=== PATIENT | male | born 1940 | race Caucasian/White ===

== ENCOUNTER 2024-05-13 11:58 | Inpatient (IN) | payer OTHER, SELFPAY ==
[2024-05-13] VITALS (14 sets, daily range): BP systolic 109–190; BP diastolic 59–95; PULSE 2–110; O2SAT 94; BMI 24.0; BMI 23.0
--- NOTE | 2024-05-13 08:52 | ED.GENMED ---
History of Present Illness
General
Chief Complaint: Breathing Problem
Time Seen by Provider: 05/13/24 08:50
History of Present Illness
History of Present Illness:
HPI: The patient presents with approximately 5 days of respiratory distress. EMS was called and he apparently was in such severe distress that even considered intubating him on scene. They ultimately placed him on CPAP with some improvement. He
has been taking albuterol nebulizer treatments over the last several days. He reports no significant swelling in the legs.
EXAM:
GENERAL: The patient is in moderate respiratory distress
HEENT: Moist oral mucosa
CARDIOVASCULAR: No murmurs, tachycardic heart rate, regular rhythm, No chest wall tenderness
PULMONARY: Moderate respiratory distress, breath sounds are markedly diminished with wheeze
ABDOMEN: Soft with no peritoneal signs, no tenderness
NEUROLOGIC: Fair strength all extremities, no coordination deficits
PSYCHIATRIC: The patient is answering questions appropriately but with some difficulty
EXTREMITIES: Nontender, trace bilateral lower extremity edema, moves all extremities equally
SKIN: No rash, no lesions
TIME OF INITIAL ENCOUNTER: 8:50 AM
NUMBER AND COMPLEXITY OF PROBLEMS ADDRESSED AT THE ENCOUNTER
� Chronic conditions affecting care: COPD, CHF, A-fib, high blood pressure, hyperlipidemia, prostate cancer
� Acute Exacerbation and/or Progression of Chronic Illness: This is an acute but recurring problem
� Differential Diagnosis includes: COPD, CHF, pneumonia, reactive airway disease, viral syndrome
AMOUNT AND/OR COMPLEXITY OF DATA TO BE REVIEWED AND ANALYZED
� I performed an independent evaluation of and my interpretation is:
EKG: Sinus 99, bifascicular block, no significant change in comparison to 11/07/2023
CT:
X-rays: Chest x-ray shows mild interstitial pulmonary edema
Laboratory Studies: White count 6.3, hemoglobin 15.0, ABG shows a pH of 7.24, pCO2 of 83 and pO2 of 136. BNP 212.
Other:
� Review of other/old records: I reviewed records. The patient was seen in the ED with an exacerbation of COPD
� Clinical information was obtained by an independent historian: Spoke to EMS
� Prescriptions/Medications Considered but not given:
� Further testing considered but not performed: No indication for CT at this time
RISK OF COMPLICATIONS AND/OR MORBIDITY OR MORTALITY OF PATIENT MANAGEMENT
� Social determinants of health affecting care: Lives at [facility] and has a caregiver
� Discussion with other providers: Dr. Mcmillan for admission at 9:50 AM
� Escalation of care including admission/observation vs risk of discharge considered: The patient was placed on BiPAP. He was also given IV steroids, hour-long DuoNeb, and IV diuretic. He has markedly improved on reassessment
at 10 AM. Some degree of hypercapnic respiratory failure also noted�will leave on BiPAP for now.
Past History
Past History
ED Past Medical History: Cancer, COPD, HTN, Hypercholesterolemia, NIDDM and Other (COVID pneumonitis January 2022)
ED Past Surgical History: Cholecystectomy and Urological
Social History
Tobacco: Smoker
Alcohol: None
Personal:
Living: alone
Employment: Retired
Family History
Family History: Other (Noncontributory)
Phy Exam
Physical Exam
Physical Exam:
See HPI
Scores
Heart Failure Risk
Heart Failure Risk Score: Not Applicable
Course
Orders/Labs/Results
Orders:
Orders
05/13/24 08:51
Dexamethasone Sod Phosphate [Decadron] 10 mg IV NOW STA
Ipratropium/Albuterol Sulfate [Duoneb] 3 ml INH R NOW ONE
Ipratropium/Albuterol Sulfate [Duoneb] 3 ml INH R NOW ONE
Ipratropium/Albuterol Sulfate [Duoneb] 3 ml INH R NOW ONE
05/13/24 08:52
CR Chest Portable - 1 View Urgent
Comment:
Reason For Exam: sob copd chf hx
Reason Study Needs to be Portable: Patient Unstable
05/13/24 08:54
ABG [Arterial Blood Gas] Urgent
%Oxygen/Room Air: 40
Complete Blood Count/With Diff Urgent
Comprehensive Metabolic Panel Urgent
Magnesium Urgent
NT-proBNP Urgent
Troponin I Urgent
05/13/24 08:55
Albuterol Sulfate [Ventolin Nebules] 7.5 mg .ROUTE .STK-MED ONE
05/13/24 09:58
Furosemide [Lasix] 40 mg IV NOW STA
05/13/24 10:00
Electrocardiogram (*1) Urgent
Reason for Study: Shortness of Breath
EKG- Treatment ONCE
Abnormal Lab Results
05/13/24
08:54
MCHC 31.6 L g/dL
(33.0-37.0)
Absolute Lymphs (auto) 0.8 L 10^3/uL
(1.2-3.4)
Absolute Monos (auto) 0.9 H 10^3/uL
(0.1-0.6)
Lymphocytes % 13.0 L %
(20.5-51.1)
Monocytes % 13.4 H %
(1.7-9.3)
pH 7.24 L
(7.35-7.45)
pCO2 83 H* mmHg
(35-48)
pO2 136 H mmHg
(83-108)
HCO3 35.6 H mmol/L
(21-28)
ABG O2 Sat (Measured) 100.0 H %
(94-98)
Carbon Dioxide 35 H mmol/L
(22-30)
Creatinine 0.6 L mg/dL
(0.7-1.3)
Glucose 125 H mg/dl
(70-99)
Calcium 8.2 L mg/dl
(8.4-10.2)
Total Protein 5.7 L g/dl
(6.3-8.2)
05/13/24 08:54
05/13/24 08:54
Vital Signs
Initial and Last Documented VS:
Initial Vital Signs
Pulse Resp BP Pulse Ox
115 20 190/95 95
05/13/24 08:50 05/13/24 08:50 05/13/24 08:50 05/13/24 08:50
Last Documented Vital Signs
Pulse Resp BP Pulse Ox
98 19 133/60 94
05/13/24 10:13 05/13/24 10:00 05/13/24 10:13 05/13/24 09:45
*Critical Care Note
Total Time (30-74mins, 75-104mins- exclusive of procedures): 50min
comment:
The patient arrived and moderate to severe respiratory distress but overall improved after DuoNeb's given. He was also placed on BiPAP and given IV steroids. We also tried IV diuresis. His vital signs are very closely monitored. Hypercapnia also
noted on ABG.
ED Attending Note
-
Portions of this chart may have been created with voice recognition software.� Occasional wrong word or��sound alike� substitutions may have occurred due to the inherent limitations of voice recognition software.
Discharge Plan
Departure
Patient Disposition: Admit
Date of Disposition: 05/13/24
Time of Disposition: 09:58
Presentation/result/management discussed w/ accepting MD/DO: Hospitalist
Discharge Problem:
COPD exacerbation
Prescriptions:
No Action
atorvastatin 40 MG tablet
40 mg PO DAILY Qty: 30 0RF
aspirin 81 MG tablet,delayed release (DR/EC)
81 mg PO DAILY Qty: 30 0RF
tamsulosin 0.4 MG capsule
0.4 mg PO DAILY Qty: 30 0RF
omeprazole 20 MG capsule,delayed release(DR/EC)
20 mg PO DAILYPRN PRN (Reason: heartburn) Qty: 30 0RF
diltiazem HCl 120 MG capsule,extended release 24hr
120 mg PO DAILY Qty: 30 0RF
ipratropium-albuterol 0.5 mg-3 mg(2.5 mg base)/3 mL solution for nebulization
3 ml inhalation R BID
albuterol sulfate 2.5 mg /3 mL (0.083 %) Solution For Nebulization
2.5 mg INHALATION R Q6HPRN PRN (Reason: wheezing)
tamsulosin 0.4 mg Capsule
0.4 mg PO BIDPRN PRN (Reason: dark urine)
albuterol sulfate 90 mcg/actuation Hfa Aerosol Inhaler
2 puff INHALATION R BID
insulin glargine [Basaglar KwikPen U-100 Insulin] 100 unit/mL (3 mL) Insulin Pen
10 unit SC DAILY
fluticasone propion-salmeterol [Advair HFA] 230-21 mcg/actuation HFA aerosol inhaler
2 puff INHALATION R BIDPRN PRN (Reason: sob)
Metamucil Fiber Singles 1 PACKET powder in packet
1 packet PO HS PRN (Reason: Gastrointestinal issue)
prednisone 20 mg tablet
40 mg PO DAILY Qty: 8 0RF
Referrals:
NONE,* [Family Provider] -
Interventions
Interventions:
*Risk Screen - Suicide Last Done: 05/13/24 09:04
*General Assessment Last Done: 05/13/24 09:04
*Neglect/Abuse Screening Last Done: 05/13/24 09:04
ED- Fall Risk Assessment Last Done: 05/13/24 09:04
ED- Cardiac Assessment Last Done: 05/13/24 09:04
ED- Pulmonary Assessment Last Done: 05/13/24 09:04
Discharge Date and Time
Print Language: UKRAINIAN
[2024-05-13] MEDS: DUONEB 3 ML INH ×5 (08:56→20:30)
[2024-05-13] MEDS: DECADRON 10 MG IV (08:56)
[2024-05-13 09:10] LABS: % Basophils 0.6 % (0-2); % Eosinophils 1.1 % (0-6); % Immature Granulocytes 0.3 % (0-0.5); % Monocytes 13.4 % (1.7-9.3); % Neutrophils 71.6 % (42.2-75.2); Absolute Eosinophils 0.1 10^3/uL (0-0.7); Absolute Lymphocytes 0.8 10^3/uL (1.2-3.4); Absolute Monocytes 0.9 10^3/uL (0.1-0.6); Absolute Neutrophils 4.5 10^3/uL (1.4-6.5); Hematocrit 47.5 % (39.0-52.0); Mean Corp Hgb Conc. 31.6 g/dL (33.0-37.0); Mean Corpuscular Volume 91.7 fL (80.0-94.0); Mean Platelet Volume 9.9 fL (7.4-10.4); Nucleated Red Blood Cells % 0 % (-); Platelet Count 141 10^3/uL (130-400); Red Blood Cell Count 5.18 10^6/uL (4.70-6.10); Red Cell Dist. Width 12.5 % (11.5-14.5); White Blood Cell Count 6.3 10^3/uL (4.8-10.8)
[2024-05-13 09:22] LABS: B.E. 4.9 mmol/L; HCO3 35.6 mmol/L (21-28); PO2 136 mmHg (83-108); pH 7.24 (7.35-7.45)
[2024-05-13 09:24] LABS: ALT (SGPT) 30 U/L (0-50); AST (SGOT) 34 U/L (17-59); Albumin 3.6 g/dl (3.5-5.0); Alkaline Phosphatase 95 U/L (38-126); Blood Urea Nitrogen 14 mg/dl (9-20); Calcium 8.2 mg/dl (8.4-10.2); Carbon Dioxide 35 mmol/L (22-30); Chloride 98 mmol/L (98-107); Estimated Creatinine Clearance 95 ml/min; Glucose 125 mg/dl (70-99); Magnesium 1.7 mg/dl (1.6-2.3); Potassium 4.1 mmol/L (3.5-5.1); Sodium 140 mmol/L (135-145); Total Bilirubin 0.7 mg/dl (0.2-1.3); Total Protein 5.7 g/dl (6.3-8.2); eGFR > 60.00
[2024-05-13 09:31] LABS: PCO2 83 mmHg (35-48)
[2024-05-13 09:36] LABS: NT-proBNP 212 pg/ml; Troponin I 0.014 ng/ml
[2024-05-13] MEDS: LASIX 40 MG IV (10:13)
--- NOTE | 2024-05-13 11:40 | CON.PUL ---
Consultation
Consultation Request
Date/Time Consultation Requested: 05/13/24
Date/Time Consultation Performed: 05/13/24
Performing Provider: Domingo
Reason for Consultation: COPD
Medical History
-
History of Present Illness:
Patient is a year old M with history of severe COPD, on chronic O2, current smoker, presenting to ER for SOB/resp distress x 5 days. On arrival, EMS was concerned for distress and considered intubating en route but patient declined. He was then
placed on CPAP and brought in. He notes that he is DNR.
CXR showing mild edema.
He is on PAP in ER, and confirmed DNR. He understands the severity of his lung disease. Had been smoking on/off despite this, only quit in the past 30 days.
Last FEV1 in office was 10%.
He is end stage COPD.
Past Medical History
Past Medical History: Other (see list below)
Social History
Tobacco: Smoker
Alcohol: None
Drug: None
Family History
Family History: Reviewed & Not Pertinent
Allergies / Home Medications
Allergies
Allergy/AdvReac Type Severity Reaction Status Date / Time
No Known Allergies Allergy Verified 05/13/24 08:52
Home Medications
�Medication �Instructions �Recorded �Confirmed �Last Taken �Type
atorvastatin 40 mg tablet 40 mg PO DAILY High cholesterol 06/04/23 05/13/24 11/06/23 Rx
#30 tabs
diltiazem HCl 120 mg 120 mg PO DAILY Arrhythmia #30 caps 06/04/23 05/13/24 11/06/23 Rx
capsule,extended release 24 hr
albuterol sulfate 2.5 mg/3 mL 5 mg inhalation R Q6HPRN PRN 11/07/23 05/13/24 11/06/23 History
(0.083 %) solution for nebulization wheezing
albuterol sulfate 90 mcg/actuation 2 puff inhalation R Q6HPRN PRN 11/07/23 05/13/24 11/06/23 History
aerosol inhaler wheezing
budesonide 0.5 mg/2 mL suspension 0.25 mg inhalation R BID 05/13/24 05/13/24 Unknown History
for nebulization Lung/Breathing Issues
cephalexin 250 mg capsule 250 mg PO QID Infection 05/13/24 05/13/24 Unknown History
hydrocortisone 2.5 % topical cream 1 applic [place] BID rectum 05/13/24 05/13/24 Unknown History
with perineal applicator
metronidazole 500 mg tablet 500 mg PO TID Infection 05/13/24 05/13/24 Unknown History
omeprazole 20 mg capsule,delayed 20 mg PO DAILY Gastrointestinal 05/13/24 05/13/24 Unknown History
release Issue
tamsulosin 0.4 mg capsule 0.4 mg PO BID Urinary issue 05/13/24 05/13/24 Unknown History
Review of Systems
-
History Source: Patient
All other systems: Negative unless noted
Vitals / Labs / Diagnostic Testing
Vital Signs
Pulse Resp BP Pulse Ox
107 32 132/73 96
05/13/24 11:30 05/13/24 11:30 05/13/24 11:00 05/13/24 11:30
Lab Data
05/13/24 08:54
05/13/24 08:54
Laboratory Results
05/13/24
08:54
pH 7.24 L
pCO2 83 H*
pO2 136 H
HCO3 35.6 H
O2 Delivery Level
Diagnostic Testing:
Physical Exam
-
HEENT: Normocephalic, Anicteric and Moist Mucous Membranes
Cardiovascular: S1/S2 and Regular Rhythm
Respiratory: Wheeze, Non-Labored Respirations and Other (barrel chested, poor air movement, distended chest)
GI: Soft, Non Distended and Non Tender
Neurology: Awake, Alert, Oriented, AO x 3 and No Motor Deficits
Skin: Warm, Dry and Good Color
General: Respiratory Distress (mild, while on PAP) and Other (NAD)
Assessment
-
Patient is a year old M with history of severe COPD, on chronic O2, current smoker, presenting to ER for SOB/resp distress x 5 days. On arrival, EMS was concerned for distress and considered intubating en route but patient /declined. He was
then placed on CPAP and brought in. CXR showing mild edema. He is on PAP in ER, and confirmed DNR. We are consulted for eval 05/13/24.
Acute on chronic hypoxemic/hypercarbic respiratory failure
AECOPD
End stage COPD
Conditions present prior to admission:
[facility] 03-09 to : AECOPD. Again run out of nebulized BDs. O2 return to baseline 2L, d/c on prednisone taper
[facility] 11-29 to for AECOPD in suspected stage IV COPD, received ceftriaxone 3 d course by adm rekha, received tapering CSs.
Noted he run out of albuterol nebs due to frequent use due to uncontrolled dyspnea, could afford only half month supply
Chronic hypoxemic respiratory failure, suspected chronic hypercapnia (chronically elevated total serum CO2)
COVID illness, [facility] 01-24 to
Severe COPD, latest baseline from 2 to 2.5 L [employer]
Last seen in office-[facility] 04/01/23: FVC 1.02/28%, FEV1 0.26/10%, ratio 26%
6MWT confirms the need for 3 L O2 with ambulation.
History of E. coli bacteremia due to suspected biliary source 06/2021
Dilated CBD 1.8cm
Refused MRI testing due to refusal for mask use
H/o Prostate CA s/p XRT 2013
Chronic hypercarbia
Cholecystectomy
Chronic LILIBETH edema, mild
Obesity
Tobacco dependence: states quit 1 wk [employer], states commitment to smoking cessation
Plan
Placed on PAP therapy
Acute on chronic CO2 retention noted
Severe COPD-FEV1 0.26/10%
This is end stage disease which he is aware of.
He is currently DNR
Given IV steroids in ER, can continue while inpatient
Continue DuoNeb's
Pulmicort twice a day while in the hospital
CXR showing possible edema, would not hurt to diuresis some as well
Last ECHO in 2021 stable, has not had repeat study
Aspiration precautions
Speech therapy evaluation 06/01/23-Regular consistency solids and thin liquids
Resume prior recommended diet
Cultures in past reviewed-unrevealing
Observe off antibiotics
Ongoing smoking cessation counseling
Quit only in the past 30 days
Nicotine patch PRN
DVT prophylaxis
Increase activity as tolerated
We discussed his prognosis in ER and he is aware. He has confirmed for me that he is DNR and would not want CPR/intubation.
He does want to be kept comfortable if he should clinically deteriorate. He states that his family knows his wishes.
We will follow
Diagnostic Data
CXR 05/13/24- Findings suggesting mild pulmonary interstitial edema.
CXRs 05-31-23, c/w 03-09 and 11-29-22. No pulmonary infiltrates. Somewhat prominent breast shadows
Chest CT: N/A
TTE 01-24-22 CONCLUSIONS: Normal left ventricular size, wall thickness and systolic function. No regional wall motion abnormalities are seen. LV ejection fraction is 65-70% by visual assessment. Diastolic function indeterminate. Normal right
ventricular size and function. Normal atria. Aortic sclerosis without stenosis. No other significant valve abnormalities were observed. Small pericardial effusion without evidence of hemodynamic compromise. No evidence of pulmonary hypertension. No
prior study available for comparison.
LILIBETH doppler 01-24-22: negative
[facility] 04/01/23: FVC 1.02/28%, FEV1 0.26/10%, ratio 26%, significant BD response in FEV1 (27%). Post BD results FVC 0.99/27%, FEV1 0.33/13%, ratio 34%. Very severe obstruction and suggestive of severe restrictive pattern.
Total time spent on this consultation __76__ includes review of history, physical exam, medications, laboratory data, personal review of imaging, extensive review of outpatient records, discussion with care team and respiratory therapy. Discussed
case with care team.
[2024-05-13 11:54] LABS: COVID-19 Antigen Negative (Negative)
[2024-05-13 12:29] LABS: B.E. 9.4 mmol/L; HCO3 37.3 mmol/L (21-28); O2 Saturation % 93.7 % (94-98); PCO2 63 mmHg (35-48); PO2 65 mmHg (83-108); pH 7.38 (7.35-7.45)
--- NOTE | 2024-05-13 12:46 | PTCARENOTE ---
Pt received from the ER. Ox3 and appropriate, follows commands. Sinus tach on tele, +1 LE edema, + pulses. Currently on Bipap 14/6 with 8L o2 with 93% sat. Breath sounds are shallow with mild exp wheezing. Pt uses 2-3L O2 at home. Round ABD, + bowel
sounds. Stress incontinence, pt brought his own attends but he states he can usually tell when he needs to urinate. Skin is clear. IV sites intact. Pt makes needs known.
[2024-05-13] MEDS: DUONEB INH (12:50)
--- NOTE | 2024-05-13 13:05 | HPS.HSE ---
Addendum entered and electronically signed by Kobe Srinivasan MD 05/13/24 14:04:
I personally performed a history and physical exam of the patient and discussed management with the resident. I reviewed the resident's note and agree with the documented findings and plan of care HPI/CC.
83-year-old male who presents with chief complaint of shortness of breath that has worsened over the last week.
133/60, 98, 19, 97.7 F, 94% on BIPAP 14/6 with 8L O2
NAD, Awake and alert, appears chronically ill
tachy, reg rhythm, normal S1/S2
dec AE, B/L exp wheezes
CN2-12 intact
WBC 6.3, Hb 15, plt 141
Na 140, Cr 0.6
ABG 7.24/83/136/100%
CXR (read by me): Findings suggesting mild pulmonary interstitial edema.
ECG (read by me): NSR @ 99, L-axis, RBBB, LAFB, no acute ST/TW changes
Acute on chronic hypoxemic and hypercapnic respiratory failure due to acute exacerbation of COPD due to ongoing tobacco abuse disorder:
-on 2.5L/min at home, currently on BIPAP 14/6
-start Decadron 4mg IV Q6H
-Duonebs Q6H
-c/s pulm
-encourage smoking cessation, will offer nicotine patch
-repeat ABG at least 1 hour after initiation of BIPAP
-goal SpO2 90-91%
PAF:
-cont cardizem
Original Note:
Family Physician
-
Family Physician: Camila Rajput MD
Chief Complaint
-
Shortness of breath
History of Present Illness
83-year-old male past medical history of COPD, paroxysmal atrial fibrillation, prostate carcinoma, heart failure preserved ejection fraction, GERD, pulmonary emphysema, pulmonary hypertension, hyperlipidemia, type 2 diabetes not on insulin presents
to the emergency room with increasing shortness of breath of 1 week in duration. Patient reports shortness of breath has been progressive and got significant enough for him to come to the emergency department this morning. EMS placed the patient
on CPAP and brought him to the ED. Patient has been receiving albuterol nebulizing treatments over the last several days. Of note patient has a past medical history of prostate cancer status post radiation therapy, recently patient had infected
hemorrhoids and he was prescribed a 7-day course of antibiotics. Patient also was sick with the flu for the last week, has completed a course of Tamiflu as well. Patient follows [facility] pulmonology. Patient endorses fever over the last week
however no sputum production. He is currently afebrile. Patient is on 3 L of oxygen chronically at home and he did not have to increase his oxygen requirements in the last week. Patient was admitted to IMU and placed on telemetry.
Medical History
Past Medical History
Past Medical History: Reports Arrhythmia, Cancer, CHF, COPD, GERD, HTN, Hypercholesterolemia, NIDDM and Other (Pulmonary hypertension, prostate carcinoma, heart failure preserved ejection fraction)
Past Surgical History: Reports Cholecystectomy
Social History
Tobacco: Former Smoker (70 pack years, stopped smoking 2 weeks ago)
Alcohol: None
Drug: None
Personal: Single
Living: Alone
Employment: Retired
Family History
Family History: Not pertinent
Allergies / Home Medications
Allergies reflects when Allergies were last updated in [facility].
Home Medications with original date entered in [facility]
Allergy/Medication List:
Allergies
Allergy/AdvReac Type Severity Reaction Status Date / Time
No Known Allergies Allergy Verified 05/13/24 08:52
Home Medications
atorvastatin 40 mg tablet 40 mg PO DAILY High cholesterol #30 tabs 06/04/23
diltiazem HCl 120 mg capsule,extended release 24 hr 120 mg PO DAILY Arrhythmia #30 caps 06/04/23
albuterol sulfate 2.5 mg/3 mL (0.083 %) solution for nebulization 5 mg inhalation R Q6HPRN PRN wheezing 11/07/23
albuterol sulfate 90 mcg/actuation aerosol inhaler 2 puff inhalation R Q6HPRN PRN wheezing 11/07/23
budesonide 0.5 mg/2 mL suspension for nebulization 0.25 mg inhalation R BID Lung/Breathing Issues 05/13/24
cephalexin 250 mg capsule 250 mg PO QID Infection 05/13/24
hydrocortisone 2.5 % topical cream with perineal applicator [address] BID rectum 05/13/24
metronidazole 500 mg tablet 500 mg PO TID Infection 05/13/24
omeprazole 20 mg capsule,delayed release 20 mg PO DAILY Gastrointestinal Issue 05/13/24
tamsulosin 0.4 mg capsule 0.4 mg PO BID Urinary issue 05/13/24
Review of Systems
-
History Source: Patient
A 12 point ROS was completed and negative except as noted: No
Constitutional: Reports Fever
Respiratory: Reports Cough and Trouble Breathing
Cardiac: Reports No Symptoms
Abdomen/GI: Reports No Symptoms
Musculoskeletal: Reports No Symptoms
Physical Exam
Vital Signs
Vital Signs
Temp Pulse Resp BP Pulse Ox
97.9 F 107 32 132/73 96
05/13/24 11:01 05/13/24 11:30 05/13/24 11:30 05/13/24 11:00 05/13/24 11:30
Physical Exam
General: Well Developed, Well Nourished, Conversant and Respiratory Distress
Respiratory: Wheezes (Bilateral expiratory wheezing present without stethoscope on chest) and Other (Labored respirations)
Cardiac: Other (Could not auscultate due to BiPAP machine )
GI: Soft, Non Tender, Non Distended and Normal Bowel Sounds
Musculoskeletal: No Edema
Skin: Warm and Dry
Neuro: Awake, Alert, Oriented and AO x 3
Psych: Calm and Intact Judgment/Insight
Laboratory Results
-
05/13/24 08:54
05/13/24 08:54
Laboratory Results
pH 7.38 (7.35-7.45) 05/13/24 12:16
pCO2 63 mmHg (35-48) H 05/13/24 12:16
pO2 65 mmHg (83-108) L 05/13/24 12:16
HCO3 37.3 mmol/L (21-28) H 05/13/24 12:16
Total Bilirubin 0.7 mg/dl (0.2-1.3) 05/13/24 08:54
AST 34 U/L (17-59) 05/13/24 08:54
ALT 30 U/L (0-50) 05/13/24 08:54
Alkaline Phosphatase 95 U/L (38-126) 05/13/24 08:54
Troponin I 0.014 ng/ml 05/13/24 08:54
Data Reviewed
-
Diagnostic Radiology: Report Reviewed by me and Discussed with Physician
Lab Data: Labs Reviewed by me and Discussed with Physician
Impression/Plan
-
IMPRESSION:
83-year-old male with shortness of breath secondary to a COPD exacerbation
PLAN:
#COPD exacerbation
-Patient follows pulmonology at [facility]
-Takes 3 L oxygen at home chronically
-Currently requiring 8 L on BiPAP 16/
-Satting 92% on 8 L BiPAP
-Temperature in the ED was 97.7, patient afebrile, current antibiotics are not for COPD they are for his infected hemorrhoids
-Dexamethasone 4 mg IV every 6 hours
-DuoNebs every 6 hours as needed
-Pulmicort 0.25 mg twice daily
-Goal SpO2 90 to 91%, do not go above 92% oxygen saturation as this can decrease respiratory drive
-Pulmonology consulted
-Repeat ABG 1 hour after initiation of BiPAP
-Encourage smoking cessation
-Will offer nicotine patch
#Paroxysmal atrial fibrillation
-Patient has a past medical history of A-fib
-Currently in sinus rhythm
-Patient does not take anticoagulation, reason unknown
-Continue home diltiazem 120 mg extended release p.o. daily
#Infected hemorrhoids
-Patient reports having infected hemorrhoids prior to admission
-Patient was started on cephalexin to 250 mg p.o. 4 times daily and metronidazole 500 mg p.o. 3 times daily
-He received 3 days worth out of a 7-day treatment
-Continue home antibiotics for 4 days
#Influenza
-Patient reports having influenza over the last week
-Patient reports completing a course of Tamiflu
-Will check for influenza antigens
-COVID antigen negative
#Hyperlipidemia
-Continue home atorvastatin 40 mg p.o. daily
#GERD
-Continue home omeprazole 20 mg p.o. daily
#Urinary retention
-Continue home tamsulosin 0.4 mg p.o. twice daily
Diet: Carb controlled 1600-calorie
DVT prophylaxis: Lovenox 40 subcu
DNR/DNI
[2024-05-13] MEDS: DECADRON 4 MG IV ×2 (14:58→20:27)
[2024-05-13] MEDS: FLAGYL 500 MG PO ×2 (15:18→21:13)
[2024-05-13] MEDS: KEFLEX 250 MG PO ×3 (15:18→21:13)
[2024-05-13] MEDS: LOVENOX 40 MG SC (18:28)
[2024-05-13] MEDS: FLOMAX 0.4 MG PO (20:27)
[2024-05-13] MEDS: PULMICORT 0.5 MG INH (20:30)
[2024-05-14] VITALS (14 sets, daily range): BP systolic 125–162; BP diastolic 61–105; PULSE 2–80; O2SAT 92; BMI 22.7
[2024-05-14] MEDS: DUONEB 3 ML INH ×4 (01:48→21:13)
[2024-05-14] MEDS: DECADRON 4 MG IV ×3 (02:39→16:54)
[2024-05-14 05:08] LABS: % Basophils 0.3 % (0-2); % Immature Granulocytes 0.3 % (0-0.5); % Lymphocytes 11.8 % (20.5-51.1); % Monocytes 8.8 % (1.7-9.3); % Neutrophils 78.8 % (42.2-75.2); Absolute Lymphocytes 0.4 10^3/uL (1.2-3.4); Absolute Monocytes 0.3 10^3/uL (0.1-0.6); Absolute Neutrophils 2.4 10^3/uL (1.4-6.5); Hematocrit 45.2 % (39.0-52.0); Hemoglobin 14.4 g/dL (13.0-18.0); Mean Corp Hgb Conc. 31.9 g/dL (33.0-37.0); Mean Corpuscular Hgb 28.7 pg (27.0-31.0); Mean Platelet Volume 10.2 fL (7.4-10.4); Nucleated Red Blood Cells % 0 % (-); Platelet Count 127 10^3/uL (130-400); Red Blood Cell Count 5.02 10^6/uL (4.70-6.10); Red Cell Dist. Width 12.3 % (11.5-14.5); White Blood Cell Count 3.1 10^3/uL (4.8-10.8)
[2024-05-14 05:10] LABS: INR 1.13; PT 14.5 Sec (11.4-14.6)
[2024-05-14 05:11] LABS: APTT 32.5 Sec (23.4-35.0)
[2024-05-14 05:24] LABS: Blood Urea Nitrogen 25 mg/dl (9-20); Calcium 8.4 mg/dl (8.4-10.2); Carbon Dioxide 39 mmol/L (22-30); Chloride 94 mmol/L (98-107); Estimated Creatinine Clearance 70 ml/min; Glucose 220 mg/dl (70-99); Potassium 4.2 mmol/L (3.5-5.1); Sodium 137 mmol/L (135-145); eGFR > 60.00
[2024-05-14 07:24] LABS: Glucose - Point of Care 177 mg/dl (70-99)
--- NOTE | 2024-05-14 07:28 | PTCARENOTE ---
PAYABLE MANAGER notified of NIDDM, Pt had 220 glucose with Am labs. No current order for glucose checks/ insulin. No new orders at this time. pt asymptomatic.
[2024-05-14] MEDS: PULMICORT 0.5 MG INH ×2 (07:33→21:13)
[2024-05-14] MEDS: KEFLEX 250 MG PO ×4 (08:14→21:18)
[2024-05-14] MEDS: CARDIZEM CD 120 MG PO (08:14)
[2024-05-14] MEDS: PROTONIX 40 MG PO (08:14)
[2024-05-14] MEDS: FLOMAX 0.4 MG PO ×2 (08:14→19:38)
[2024-05-14] MEDS: LIPITOR 40 MG PO (08:14)
--- NOTE | 2024-05-14 08:30 | PTCARENOTE ---
Patient received from cage shift manager. Patient resting comfortably in bed. AAO, VSS. No events noted overnight. No complaints of pain at this time. Patient worse BiPAP up until the arrival of breakfast and was placed on 4L N/C to titrate to
maintain O2 sats 88-92%. Patient aware BiPAP is available for naps and to wear again overnight. Call rose in reach.
--- NOTE | 2024-05-14 08:49 | W.PN.HOSP.TC ---
Addendum entered and electronically signed by Kobe Srinivasan MD 05/14/24 11:57:
Possible transfer to tele later today. Will ask if cardiology has seen the pt as an outpt to review records.
Total time spent on today's encounter was 50 minutes which included time spent in counseling the patient/family regarding diagnosis and treatment plan as listed above, goals of care, and symptom management. Case was discussed with nursing staff,
specialists, and care coordinators/case management. All labs and imaging personally reviewed by me. Remainder the time spent in detailed review of previous records, lab data, imaging, and other medical provider documentation.
Addendum entered and electronically signed by Kobe Srinivasan MD 05/14/24 11:55:
I saw and evaluated the patient. I reviewed the resident�s note and agree with findings and plan as documented in the resident�s note.
NAD, Awake and alert, appears chronically ill
remains tachy, reg rhythm, normal S1/S2
dec AE, B/L exp wheezes (improved from yesterday)
remains CN2-12 intact
CXR (read by me): Findings suggesting mild pulmonary interstitial edema.
ECG (read by me): NSR @ 99, L-axis, RBBB, LAFB, no acute ST/TW changes
Acute on chronic hypoxemic and hypercapnic respiratory failure due to acute exacerbation of COPD due to ongoing tobacco abuse disorder:
-on 2.5-4L/min at home (pt variable on this info), was on BIPAP 14/6 on admission, now weaned to 4L NC O2. Goal SpO2 90-91%.
-repeat ABG after initiation of BIPAP with resolved respiratory acidosis (suspect pCO2 of 63 fairly close to pt's baseline)
-cont Decadron 4mg IV Q6H
-cont Duonebs/pulmicort
-c/s pulm
-encourage smoking cessation, will offer nicotine patch
-goal SpO2 90-91%
PAF:
-cont cardizem
Original Note:
Today's Communication/Plan
-
Continue IV steroids, monitor for symptoms of agitation
Continue to wean off oxygen as appropriate, keeping goal SpO2 below 92%
Assessment / Plan
Assessment / Plan
IMPRESSION:
83-year-old male with shortness of breath secondary to a COPD exacerbation
PLAN:
#COPD exacerbation
-Patient follows pulmonology at [place]
-Takes 3 L oxygen at home chronically
-BiPAP as needed 03/02
-Temperature in the ED was 97.7, patient afebrile, current antibiotics are not for COPD they are for his infected hemorrhoids
-Dexamethasone 4 mg IV every 6 hours
-DuoNebs every 6 hours as needed
-Pulmicort 0.25 mg twice daily
-Goal SpO2 90 to 91%, do not go above 92% oxygen saturation as this can decrease respiratory drive
-Pulmonology consulted
-Repeat ABG 1 hour after initiation of BiPAP was improved compared to previous
-Encourage smoking cessation
-Patient declines nicotine patch, as he has had issues with it in the past, causing rash. As well has him quitting smoking 2 weeks ago he does not want to reinitiate nicotine.
#Paroxysmal atrial fibrillation
-Patient has a past medical history of A-fib
-Currently in sinus rhythm
-Patient does not take anticoagulation, reason unknown
-Continue home diltiazem 120 mg extended release p.o. daily
#Infected hemorrhoids
-Patient reports having infected hemorrhoids prior to admission
-Patient was started on cephalexin to 250 mg p.o. 4 times daily and metronidazole 500 mg p.o. 3 times daily
-Patient completed his course of metronidazole yesterday, currently still has 3 days left of Keflex
#Influenza
-Patient reports having influenza over the last week
-Patient reports completing a course of Tamiflu
-Will check for influenza antigens
-COVID antigen negative
#insomnia
-pt reports insomnia and feelings of hyperactivity overnight
-Likely secondary to steroids
-5mg Melatonin PRN
Bowel incontinence
-pt reports bowel incontinence
-likely secondary to XRT for prostate cancer
-Pt takes Metamucil daily at home
-Metamucil PRN
#Hyperlipidemia
-Continue home atorvastatin 40 mg p.o. daily, and home baby aspirin 81mg p.o
#GERD
-Continue home omeprazole 20 mg p.o. daily
#Urinary retention
-Continue home tamsulosin 0.4 mg p.o. twice daily
Diet: Carb controlled 1600-calorie
DVT prophylaxis: Lovenox 40 subcu
DNR/DNI
Anticipated Discharge: 24 - 48 hours
Subjective/Interval History
-
Date of Service: May 14, 2024
Patient reports difficulty sleeping
Patient weaned to 4 L nasal cannula oxygen
Still appears in respiratory distress with pursed lip breathing
Objective Data
-
Labs:
Laboratory Results
05/14/24
04:47
WBC 3.1 L
Hgb 14.4
Hct 45.2
Plt Count 127 L
PT 14.5
INR 1.13
APTT 32.5
Sodium 137
Potassium 4.2
Chloride 94 L
Carbon Dioxide 39 H
BUN 25 H
Creatinine 0.8
Glucose 220 H
Calcium 8.4
Vital Signs:
Vital Signs
Temp Pulse Resp BP Pulse Ox
97.5 F 105 18 162/94 94
05/14/24 02:56 05/14/24 08:14 05/14/24 07:37 05/14/24 08:14 05/14/24 07:37
I&O
05/13/24 05/14/24 05/15/24
06:59 06:59 06:59
Output Total 925 / 925
Balance -925 / -925
Review of Systems
-
History Source: Patient
Constitutional: Reports No Symptoms
Respiratory: Reports Cough, Trouble Breathing and Wheezing
Cardiac: Reports No Symptoms
Abdomen/GI: Reports Diarrhea
Physical Exam
-
General: Well Nourished, Respiratory Distress and Conversant
Respiratory: Wheezes and Other (pursed lip breathing)
Cardiac: Regular Rhythm and S1/S2
GI: Soft, Nontender and Normal Bowel Sounds
Musculoskeletal: No Edema
Skin: Warm and Dry
Neuro: Awake, Alert, Oriented and AO x 3
Psych: Calm and Intact Judgement/Insight
Data Reviewed
-
Diagnostic Radiology: Report Reviewed by me and Discussed with Physician
Labs: Labs Reviewed by me and Discussed with Physician
--- NOTE | 2024-05-14 09:10 | W.PN.PUL3 ---
Today's Communication / Plan
-
Off BIPAP, continue nightly and PRN
Remains on IV steroids, will wean to q8 today
Encouraged IS/OOB
Wean O2 as tolerated
Assessment
-
Patient is a year old M with history of severe COPD, on chronic O2, current smoker, presenting to ER for SOB/resp distress x 5 days. On arrival, EMS was concerned for distress and considered intubating en route but patient /declined. He was
then placed on CPAP and brought in. CXR showing mild edema. He is on PAP in ER, and confirmed DNR. We are consulted for eval 05/13/24.
Acute on chronic hypoxemic/hypercarbic respiratory failure
AECOPD
End stage COPD
Conditions present prior to admission:
[facility] 03-09 to : AECOPD. Again run out of nebulized BDs. O2 return to baseline 2L, d/c on prednisone taper
[facility] 11-29 to for AECOPD in suspected stage IV COPD, received ceftriaxone 3 d course by adm rekha, received tapering CSs.
Noted he run out of albuterol nebs due to frequent use due to uncontrolled dyspnea, could afford only half month supply
Chronic hypoxemic respiratory failure, suspected chronic hypercapnia (chronically elevated total serum CO2)
COVID illness, [facility] 01-24 to
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
Last seen in office-[place] 04/01/23: FVC 1.02/28%, FEV1 0.26/10%, ratio 26%
6MWT confirms the need for 3 L O2 with ambulation.
History of E. coli bacteremia due to suspected biliary source 06/2021
Dilated CBD 1.8cm
Refused MRI testing due to refusal for mask use
H/o Prostate CA s/p XRT 2013
Chronic hypercarbia
Cholecystectomy
Chronic LILIBETH edema, mild
Obesity
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
Plan
Placed on PAP therapy
Acute on chronic CO2 retention noted
Reviewed importance of OP PAP use, he was resistant to this but agreed to try every night
Severe COPD-FEV1 0.26/10%
This is end stage disease which he is aware of.
He is currently DNR
Given IV steroids in ER, can continue while inpatient
Continue DuoNeb's
Pulmicort twice a day while in the hospital
CXR showing possible edema, would not hurt to diuresis some as well
Last ECHO in 2021 stable, has not had repeat study
Aspiration precautions
Speech therapy evaluation 06/01/23-Regular consistency solids and thin liquids
Resume prior recommended diet
Cultures in past reviewed-unrevealing
Observe off antibiotics
Ongoing smoking cessation counseling
Quit only in the past 30 days
Nicotine patch PRN
DVT prophylaxis
Increase activity as tolerated
We discussed his prognosis in ER and he is aware. He has confirmed for me that he is DNR and would not want CPR/intubation.
He does want to be kept comfortable if he should clinically deteriorate. He states that his family knows his wishes.
Diagnostic Data
CXR 05/13/24- Findings suggesting mild pulmonary interstitial edema.
CXRs 05-31-23, c/w 03-09 and 11-29-22. No pulmonary infiltrates. Somewhat prominent breast shadows
Chest CT: N/A
TTE 01-24-22 CONCLUSIONS: Normal left ventricular size, wall thickness and systolic function. No regional wall motion abnormalities are seen. LV ejection fraction is 65-70% by visual assessment. Diastolic function indeterminate. Normal right
ventricular size and function. Normal atria. Aortic sclerosis without stenosis. No other significant valve abnormalities were observed. Small pericardial effusion without evidence of hemodynamic compromise. No evidence of pulmonary hypertension. No
prior study available for comparison.
LILIBETH doppler 01-24-22: negative
[facility] 04/01/23: FVC 1.02/28%, FEV1 0.26/10%, ratio 26%, significant BD response in FEV1 (27%). Post BD results FVC 0.99/27%, FEV1 0.33/13%, ratio 34%. Very severe obstruction and suggestive of severe restrictive pattern.
Total time spent on this consultation __51__ includes review of history, physical exam, medications, laboratory data, personal review of imaging, extensive review of outpatient records, discussion with care team and respiratory therapy. Discussed
case with care team.
Subjective Data
-
Date of Service:
Date of Service: May 14, 2024
Chief Complaint: Pulmonary Follow Up
Subjective:
no new events, feels better
off PAP
Objective Data
Data Reviewed
Vital Signs / I&O / Oxygen:
Vital Signs
Temp Pulse Resp BP Pulse Ox
97.8 F 105 18 162/94 94
05/14/24 07:15 05/14/24 08:14 05/14/24 07:37 05/14/24 08:14 05/14/24 07:37
Intake and Output
05/13/24 05/14/24 05/15/24
06:59 06:59 06:59
Output Total 925 / 925
Balance -925 / -925
SaO2 94
Nasal Cannula flow liters per 4
minute
Physical Exam
General: Respiratory Distress (mild, able to hold conversation, breathless) and Other (NAD)
HEENT: Normocephalic, Anicteric and Moist Mucous Membranes
Cardiovascular: S1-S2 and Regular Rhythm
Respiratory: Wheeze, Non-Labored Respirations and Other (barrel chest)
GI: Soft, Non Distended and Non Tender
Neurology: Awake, Alert, Oriented, AO x 3 and No Motor Deficits
Skin: Warm and Dry
Labs/Micro/Reports
Lab Data
05/14/24 04:47
05/14/24 04:47
Laboratory Results
05/13/24 05/13/24 05/14/24
08:54 12:16 04:47
PT 14.5
INR 1.13
APTT 32.5
pH 7.24 L 7.38
pCO2 83 H* 63 H
pO2 136 H 65 L
HCO3 35.6 H 37.3 H
O2 Delivery Level
Microbiology
05/13/24 11:23 Nasal Swab Influenza Types A & B (BHUMI) - Final
Negative for Influenza A & B, NAAT
Negative results must be combined with clinical observations
and patient history.
Nucleic Acid Amplification test (NAAT)performed on the
[employer] platform.
[2024-05-14] MEDS: LOW STRENGTH ASPIRIN 81 MG PO (09:46)
[2024-05-14] MEDS: NOVOLOG FLEXPEN-LOW RESISTANCE 1 UNITS SC ×2 (11:35→16:55)
[2024-05-14 11:44] LABS: Glucose - Point of Care 185 mg/dl (70-99)
--- NOTE | 2024-05-14 14:30 | PTCARENOTE ---
Patient attempted to get self to bathroom. PCT went into room to assist, patient got aggressive pushing the rolling walker into her stating 'would you let me do this myself'. Patient at this time aside from arguing ended up getting entangled in
his O2 tubing. Attempted to explain to patient the dangers of getting up with all the wires to which he stated he unplugged all of them. This RN at the time was in the med room getting meds for patient and unable to see any monitors. At this time
patient argumentative and unwilling to agree with allowing us to help.
After patient was bad in bed, a more constructive conversation was had and patient more agreeable to what we need to do for his safety.
[2024-05-14 16:58] LABS: Glucose - Point of Care 184 mg/dl (70-99)
[2024-05-14] MEDS: LOVENOX 40 MG SC (18:04)
--- NOTE | 2024-05-14 19:45 | PTCARENOTE ---
report received. aaox3. vss. nsr. . bipap placed hs. plan of care updated. will monitor.
[2024-05-14] MEDS: MELATONIN 5 MG PO (21:18)
[2024-05-14 21:24] LABS: Glucose - Point of Care 239 mg/dl (70-99)
[2024-05-15] VITALS (7 sets, daily range): BP systolic 126–156; BP diastolic 66–83; PULSE 2–99; O2SAT 92–93; BMI 22.8
[2024-05-15] MEDS: DECADRON 4 MG IV ×3 (00:38→17:17)
[2024-05-15] MEDS: DUONEB 3 ML INH ×4 (03:11→19:45)
[2024-05-15 06:55] LABS: % Immature Granulocytes 0.3 % (0-0.5); % Lymphocytes 8.6 % (20.5-51.1); % Monocytes 8.2 % (1.7-9.3); % Neutrophils 82.9 % (42.2-75.2); Absolute Lymphocytes 0.6 10^3/uL (1.2-3.4); Absolute Monocytes 0.6 10^3/uL (0.1-0.6); Absolute Neutrophils 5.9 10^3/uL (1.4-6.5); Hematocrit 44.2 % (39.0-52.0); Hemoglobin 14.4 g/dL (13.0-18.0); Mean Corp Hgb Conc. 32.6 g/dL (33.0-37.0); Mean Corpuscular Hgb 29.4 pg (27.0-31.0); Mean Corpuscular Volume 90.2 fL (80.0-94.0); Mean Platelet Volume 10.5 fL (7.4-10.4); Nucleated Red Blood Cells % 0 % (-); Platelet Count 131 10^3/uL (130-400); Red Cell Dist. Width 12.2 % (11.5-14.5); White Blood Cell Count 7.1 10^3/uL (4.8-10.8)
[2024-05-15 06:58] LABS: APTT 29.8 Sec (23.4-35.0); INR 1.12; PT 14.5 Sec (11.4-14.6)
[2024-05-15 07:09] LABS: Blood Urea Nitrogen 26 mg/dl (9-20); Calcium 8.4 mg/dl (8.4-10.2); Carbon Dioxide 37 mmol/L (22-30); Chloride 95 mmol/L (98-107); Estimated Creatinine Clearance 80 ml/min; Glucose 193 mg/dl (70-99); Potassium 4.4 mmol/L (3.5-5.1); Sodium 135 mmol/L (135-145); eGFR > 60.00
[2024-05-15] MEDS: PULMICORT 0.5 MG INH ×2 (07:20→19:46)
[2024-05-15 08:03] LABS: Glucose - Point of Care 170 mg/dl (70-99)
[2024-05-15] MEDS: NOVOLOG FLEXPEN-LOW RESISTANCE 1 UNITS SC ×2 (08:28→12:50)
[2024-05-15] MEDS: PROTONIX 40 MG PO (08:29)
[2024-05-15] MEDS: CARDIZEM CD 120 MG PO (08:29)
[2024-05-15] MEDS: LOW STRENGTH ASPIRIN 81 MG PO (08:29)
[2024-05-15] MEDS: LIPITOR 40 MG PO (08:29)
[2024-05-15] MEDS: KEFLEX 250 MG PO ×4 (08:29→21:14)
[2024-05-15] MEDS: FLOMAX 0.4 MG PO ×2 (08:29→21:10)
--- NOTE | 2024-05-15 09:11 | W.PN.PUL3 ---
Today's Communication / Plan
-
Doing well, has remained compliant with BIPAP
We will arrange set up as OP if he no longer has a functional device at home
Sputum culture today
Transition to PO prednisone in AM if doing well (can taper to daily 10mg dose until seen in office)
Discharge planning hopefully in next 24 hours
We reviewed OP pulmonary FU in 1-2 weeks
Assessment
-
Patient is a 83 year old M with history of severe COPD, on chronic O2, current smoker, presenting to ER for SOB/resp distress x 5 days. On arrival, EMS was concerned for distress and considered intubating en route but patient /declined. He was
then placed on CPAP and brought in. CXR showing mild edema. He is on PAP in ER, and confirmed DNR. We are consulted for eval 05/13/24.
Acute on chronic hypoxemic/hypercarbic respiratory failure
AECOPD
End stage COPD
Conditions present prior to admission:
[facility] 03-09 to : AECOPD. Again run out of nebulized BDs. O2 return to baseline 2L, d/c on prednisone taper
[facility] 11-29 to for AECOPD in suspected stage IV COPD, received ceftriaxone 3 d course by adm rekha, received tapering CSs.
Noted he run out of albuterol nebs due to frequent use due to uncontrolled dyspnea, could afford only half month supply
Chronic hypoxemic respiratory failure, suspected chronic hypercapnia (chronically elevated total serum CO2)
COVID illness, [facility] 01-24 to
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
Last seen in office-[place] 04/01/23: FVC 1.02/28%, FEV1 0.26/10%, ratio 26%
6MWT confirms the need for 3 L O2 with ambulation.
History of E. coli bacteremia due to suspected biliary source 06/2021
Dilated CBD 1.8cm
Refused MRI testing due to refusal for mask use
H/o Prostate CA s/p XRT 2013
Chronic hypercarbia
Cholecystectomy
Chronic LILIBETH edema, mild
Obesity
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
Plan
Placed on PAP therapy, continues nightly
Acute on chronic CO2 retention noted
Reviewed importance of OP PAP use, he was resistant to this but agreed to try every night
He has been tolerating
He is not sure if he has a functional PAP machine at home, we will arrange OP testing/set up
Request sent via e[employer] today
Severe COPD-FEV1 0.26/10%
This is end stage disease which he is aware of.
He is currently DNR
Weaned back to home use of 2.5L NC
Given IV steroids in ER, can continue while inpatient
Continue DuoNeb's
Pulmicort twice a day while in the hospital
If doing well, can transition to prednisone in AM
More productive yellow sputum noted
Will send sputum culture
CXR showing possible edema, would not hurt to diuresis some as well
Last ECHO in 2021 stable, has not had repeat study
Aspiration precautions
Speech therapy evaluation 06/01/23-Regular consistency solids and thin liquids
Resume prior recommended diet
Cultures in past reviewed-unrevealing
Observe off antibiotics
Ongoing smoking cessation counseling
Quit only in the past 30 days
Nicotine patch PRN
DVT prophylaxis
Increase activity as tolerated
We discussed his prognosis in ER and he is aware. He has confirmed for me that he is DNR and would not want CPR/intubation.
He does want to be kept comfortable if he should clinically deteriorate. He states that his family knows his wishes.
Outpatient pulmonary FU arrangement for 1-2 weeks
Discharge planning hopefully in next 24 hours per team
Diagnostic Data
CXR 05/13/24- Findings suggesting mild pulmonary interstitial edema.
CXRs 05-31-23, c/w 03-09 and 11-29-22. No pulmonary infiltrates. Somewhat prominent breast shadows
Chest CT: N/A
TTE 01-24-22 CONCLUSIONS: Normal left ventricular size, wall thickness and systolic function. No regional wall motion abnormalities are seen. LV ejection fraction is 65-70% by visual assessment. Diastolic function indeterminate. Normal right
ventricular size and function. Normal atria. Aortic sclerosis without stenosis. No other significant valve abnormalities were observed. Small pericardial effusion without evidence of hemodynamic compromise. No evidence of pulmonary hypertension. No
prior study available for comparison.
LILIBETH doppler 01-24-22: negative
[facility] 04/01/23: FVC 1.02/28%, FEV1 0.26/10%, ratio 26%, significant BD response in FEV1 (27%). Post BD results FVC 0.99/27%, FEV1 0.33/13%, ratio 34%. Very severe obstruction and suggestive of severe restrictive pattern.
Total time spent on this consultation __51__ includes review of history, physical exam, medications, laboratory data, personal review of imaging, extensive review of outpatient records, discussion with care team and respiratory therapy. Discussed
case with care team.
Subjective Data
-
Date of Service:
Date of Service: May 15, 2024
Chief Complaint: Pulmonary Follow Up
Subjective:
Improved today
Wore BIPAP
More productive cough, yellow mucus
Objective Data
Data Reviewed
Vital Signs / I&O / Oxygen:
Vital Signs
Temp Pulse Resp BP Pulse Ox
97.7 F 73 18 126/73 98
05/15/24 07:30 05/15/24 07:23 05/15/24 07:23 05/15/24 00:00 05/15/24 07:23
Intake and Output
05/14/24 05/15/24 05/16/24
06:59 06:59 06:59
Output Total 925 / 925 675 / 675
Balance -925 / -925 -675 / -675
SaO2 98
Nasal Cannula flow liters per 3
minute
Physical Exam
General: Respiratory Distress (mild, able to hold conversation, breathless) and Other (NAD)
HEENT: Normocephalic, Anicteric and Moist Mucous Membranes
Cardiovascular: S1-S2 and Regular Rhythm
Respiratory: Wheeze (slight, improving), Non-Labored Respirations and Other (barrel chest)
GI: Soft, Non Distended and Non Tender
Neurology: Awake, Alert, Oriented, AO x 3 and No Motor Deficits
Skin: Warm and Dry
Labs/Micro/Reports
Lab Data
05/15/24 06:23
05/15/24 06:23
Laboratory Results
05/15/24
06:23
PT 14.5
INR 1.12
APTT 29.8
Microbiology
05/13/24 11:23 Nasal Swab Influenza Types A & B ([facility]UMI) - Final
Negative for Influenza A & B, NAAT
Negative results must be combined with clinical observations
and patient history.
Nucleic Acid Amplification test (NAAT)performed on the
[employer] platform.
--- NOTE | 2024-05-15 09:55 | W.PN.HOSP.TC ---
Addendum entered and electronically signed by Kobe Srinivasan MD 05/15/24 10:13:
I saw and evaluated the patient. I reviewed the resident�s note and agree with findings and plan as documented in the resident�s note.
NAD, Awake and alert, appears chronically ill
RRR, normal S1/S2
dec AE, faint B/L exp wheezes (improved from yesterday)
continues to remain CN2-12 intact
CXR (read by me): Findings suggesting mild pulmonary interstitial edema.
ECG (read by me): NSR @ 99, L-axis, RBBB, LAFB, no acute ST/TW changes
Acute on chronic hypoxemic and hypercapnic respiratory failure due to acute exacerbation of COPD due to ongoing tobacco abuse disorder:
-on 2.5-4L/min at home (pt variable on this info), was on BIPAP 14/6 on admission, now weaned to 3L NC O2. Goal SpO2 90-91% (reiterated with nursing).
-repeat ABG after initiation of BIPAP with resolved respiratory acidosis (suspect pCO2 of 63 fairly close to pt's baseline)
-cont Decadron 4mg IV Q8H, likely will transition to Prednisone tomorrow
-cont Duonebs/pulmicort
-pulm following
-encourage smoking cessation, can offer nicotine patch
PAF:
-cont cardizem
Transfer to [place].
Original Note:
Today's Communication/Plan
-
Continue to monitor oxygen saturation
Consider transition to oral steroid
Assessment / Plan
Assessment / Plan
IMPRESSION:
83-year-old male with shortness of breath secondary to a COPD exacerbation
PLAN:
#COPD exacerbation
-Patient follows pulmonology at [place]
-Takes 3 L oxygen at home chronically
-BiPAP as needed 16/4
-Temperature in the ED was 97.7, patient afebrile, current antibiotics are not for COPD they are for his infected hemorrhoids
-Dexamethasone 4 mg IV every 6 hours
-Consider transition to oral steroids in anticipation for discharge in the future
-DuoNebs every 6 hours as needed
-Pulmicort 0.25 mg twice daily
-Goal SpO2 90 to 91%, do not go above 92% oxygen saturation as this can decrease respiratory drive
-Pulmonology following, patient is well-known to them
-Repeat ABG 1 hour after initiation of BiPAP was improved compared to previous
-Encourage smoking cessation
-Patient declines nicotine patch, as he has had issues with it in the past, causing rash. As well has him quitting smoking 2 weeks ago he does not want to reinitiate nicotine.
-Conversation was had with patient regarding his prognosis, patient understands it is poor due to end-stage COPD he says that 'he is 84 has lived a good life and understands his prognosis'
-He requests to be started on prednisone daily at baseline as it helps him breathe and gives him more energy
-Will refer to palliative care as outpatient to continue daily steroid conversation
-Will discharge patient on prednisone taper once appropriate
#Paroxysmal atrial fibrillation
-Patient has a past medical history of A-fib
-Currently in sinus rhythm
-Patient does not take anticoagulation, reason unknown
-Continue home diltiazem 120 mg extended release p.o. daily
#Infected hemorrhoids
-Patient reports having infected hemorrhoids prior to admission
-Patient was started on cephalexin to 250 mg p.o. 4 times daily and metronidazole 500 mg p.o. 3 times daily
-Patient completed his course of metronidazole, currently still has 2 days left of Keflex
#Influenza
-Patient reports having influenza over the last week
-Patient reports completing a course of Tamiflu
-Will check for influenza antigens
-COVID antigen negative
#insomnia
-pt reports insomnia and feelings of hyperactivity overnight
-Likely secondary to steroids
-5mg Melatonin PRN
Bowel incontinence
-pt reports bowel incontinence
-likely secondary to XRT for prostate cancer
-Pt takes Metamucil daily at home
-Metamucil PRN
-Patient reports improvement with Metamucil as needed
#Hyperlipidemia
-Continue home atorvastatin 40 mg p.o. daily, and home baby aspirin 81mg p.o
#GERD
-Continue home omeprazole 20 mg p.o. daily
#Urinary retention
-Continue home tamsulosin 0.4 mg p.o. twice daily
#CODE STATUS
-Initially on admission patient relates that his wishes for CODE STATUS were to be DNR/DNI
-Yesterday on 05/14/2024 nurse texted myself and attending requested that patient wanted to rediscuss his CODE STATUS
-Conversation was had with patient and he decided that for this admission he wants to be full code, he understands his prognosis is poor
-Patient has full capacity per my evaluation
-Patient's CODE STATUS was changed to full code per his wishes
Diet: Carb controlled 1600-calorie
DVT prophylaxis: Lovenox 40 subcu
Full code
Anticipated Discharge: 24 - 48 hours
Subjective/Interval History
-
Date of Service: May 15, 2024
Patient reports feeling better
Patient currently on 2.5 L oxygen, this is his baseline
Satting between 88 to 92% on 2.5 L
Objective Data
-
Labs:
Laboratory Results
05/15/24
06:23
WBC 7.1
Hgb 14.4
Hct 44.2
Plt Count 131
PT 14.5
INR 1.12
APTT 29.8
Sodium 135
Potassium 4.4
Chloride 95 L
Carbon Dioxide 37 H
BUN 26 H
Creatinine 0.7
Glucose 193 H
Calcium 8.4
Vital Signs:
Vital Signs
Temp Pulse Resp BP Pulse Ox
97.7 F 73 18 126/73 98
05/15/24 07:30 05/15/24 07:23 05/15/24 07:23 05/15/24 00:00 05/15/24 07:23
I&O
05/14/24 05/15/24 05/16/24
06:59 06:59 06:59
Intake Total 300 / 300
Output Total 925 / 925 675 / 675
Balance -925 / -925 -675 / -675 300 / 300
Review of Systems
-
History Source: Patient
Constitutional: Reports Sleep Disturbance
Respiratory: Reports Cough, Trouble Breathing and Wheezing
Cardiac: Reports No Symptoms
Abdomen/GI: Reports No Symptoms
Physical Exam
-
General: Well Developed, Respiratory Distress, Conversant and Appears Chronically Ill
Respiratory: Wheezes (Improved ) and Other (Pursed lip breathing)
Cardiac: Regular Rhythm and S1/S2
GI: Soft, Nontender, Nondistended and Normal Bowel Sounds
Skin: Warm and Dry
Neuro: Awake, Alert, Oriented and AO x 3
Psych: Calm and Intact Judgement/Insight
[2024-05-15 10:21] LABS: Glycohemoglobin (HgbA1c) 7.2 % (4.0-5.6)
[2024-05-15 12:41] LABS: Glucose - Point of Care 183 mg/dl (70-99)
--- NOTE | 2024-05-15 14:36 | PTCARENOTE ---
pt transferred to med surg level of care. pt moving to room 403. report given to linda.
--- NOTE | 2024-05-15 16:16 | CM ---
Patient who resides at [facility] with Dx COPD exacerbation, Paroxysmal atrial fibrillation. O2 3L midflow. Receiving IV Decadron. PT & OT recommend HH.
Spoke with patient who resides alone at [facility], low income senior housing.
The patient has been assisted with ADLs by his caregiver, and ambulates without using an assistive device.
The patient has a caregiver through [employer] 12 hrs/day 7 days/wk who assists with medications, personal care, housekeeping services. He values having her and thinks she is very helpful.
DME - nebulizer, w/c, home O2 possibly through [facility]
VN - prior [facility]- didn't like nurse and will not use their service again
SNF - none
PCP - Camila Rajput
Pharmacy - [facility]
Offered VN for PT/OT and patient declined saying his caregiver will assist him.
Plan home.
[2024-05-15] MEDS: BenGay-Like 1 APPLIC TOPICAL ×2 (17:14→21:12)
[2024-05-15] MEDS: LOVENOX 40 MG SC (17:18)
[2024-05-15 17:31] LABS: Glucose - Point of Care 307 mg/dl (70-99)
[2024-05-15] MEDS: NOVOLOG FLEXPEN-LOW RESISTANCE 4 UNITS SC (17:39)
[2024-05-15 21:34] LABS: Glucose - Point of Care 164 mg/dl (70-99)
[2024-05-15] MEDS: MELATONIN 5 MG PO (22:37)
[2024-05-16] MEDS: DECADRON 4 MG IV ×2 (00:04→08:43)
[2024-05-16] MEDS: DUONEB 3 ML INH ×2 (01:33→08:06)
[2024-05-16 06:00] VITALS: BMI 22.5
[2024-05-16 07:14] VITALS: BP 143/71
[2024-05-16 07:26] LABS: % Basophils 0.2 % (0-2); % Immature Granulocytes 0.8 % (0-0.5); % Lymphocytes 7.4 % (20.5-51.1); % Monocytes 4.8 % (1.7-9.3); % Neutrophils 86.8 % (42.2-75.2); Absolute Immature Granulocytes 0.1 10^3/uL (0-0.05); Absolute Lymphocytes 0.5 10^3/uL (1.2-3.4); Absolute Monocytes 0.3 10^3/uL (0.1-0.6); Absolute Neutrophils 5.8 10^3/uL (1.4-6.5); Hematocrit 41.1 % (39.0-52.0); Hemoglobin 13.5 g/dL (13.0-18.0); Mean Corp Hgb Conc. 32.8 g/dL (33.0-37.0); Mean Corpuscular Hgb 28.7 pg (27.0-31.0); Mean Corpuscular Volume 87.4 fL (80.0-94.0); Mean Platelet Volume 10.9 fL (7.4-10.4); Nucleated Red Blood Cells % 0 % (-); Platelet Count 129 10^3/uL (130-400); Red Cell Dist. Width 12.1 % (11.5-14.5); White Blood Cell Count 6.7 10^3/uL (4.8-10.8)
[2024-05-16 07:33] LABS: Glucose - Point of Care 183 mg/dl (70-99)
[2024-05-16 07:44] LABS: Blood Urea Nitrogen 25 mg/dl (9-20); Calcium 8.3 mg/dl (8.4-10.2); Carbon Dioxide 38 mmol/L (22-30); Chloride 93 mmol/L (98-107); Estimated Creatinine Clearance 69 ml/min; Glucose 205 mg/dl (70-99); Potassium 4.4 mmol/L (3.5-5.1); Sodium 134 mmol/L (135-145); eGFR > 60.00
[2024-05-16] MEDS: PULMICORT 0.5 MG INH (08:06)
[2024-05-16] MEDS: NOVOLOG FLEXPEN-LOW RESISTANCE 1 UNITS SC ×2 (08:42→12:31)
[2024-05-16] MEDS: FLOMAX 0.4 MG PO (08:43)
[2024-05-16] MEDS: LOW STRENGTH ASPIRIN 81 MG PO (08:43)
[2024-05-16] MEDS: CARDIZEM CD 120 MG PO (08:43)
[2024-05-16] MEDS: PROTONIX 40 MG PO (08:43)
[2024-05-16] MEDS: KEFLEX 250 MG PO ×2 (08:43→12:32)
[2024-05-16] MEDS: LIPITOR 40 MG PO (08:43)
--- NOTE | 2024-05-16 09:21 | W.PN.HOSP.TC ---
Today's Communication/Plan
-
d/c
Assessment / Plan
Assessment / Plan
Gen: NAD, AAOx3.
Eyes: EOMI, PERRLA, no scleral icterus.
Neck: supple.
CV: Remains RRR, +S1/S2, no m/r/g.
Resp: Distant breath sounds, CTAB, no rales, wheezes, or rhonchi.
Abd: +BS, soft, NT, ND
Skin: No rashes.
Neuro: Remains CN 2-12 intact, non-focal.
Psych: Normal mood and affect.
CXR (read by me): Findings suggesting mild pulmonary interstitial edema.
ECG (read by me): NSR @ 99, L-axis, RBBB, LAFB, no acute ST/TW changes
Acute on chronic hypoxemic and hypercapnic respiratory failure due to acute exacerbation of COPD due to ongoing tobacco abuse disorder:
-on 2.5-4L/min at home (pt variable on this info), was on BIPAP 14/6 on admission, now weaned to 2.5-3L NC O2. Goal SpO2 90-91% (reiterated with nursing).
-repeat ABG after initiation of BIPAP with resolved respiratory acidosis (suspect pCO2 of 63 fairly close to pt's baseline)
-has been on IV Decadron, transition to Prednisone today, taper on discharge
-cont Duonebs/pulmicort
-pulm following
-encourage smoking cessation, can offer nicotine patch
PAF:
-cont cardizem
-not on AC ADMINISTRATIVE ASSISTANT DATA ENTRY
-outpt cardiology follow up
Infected hemorrhoids
-Patient reports having infected hemorrhoids prior to admission
-Patient was started on cephalexin to 250 mg p.o. 4 times daily and metronidazole 500 mg p.o. 3 times daily
-Patient completed his course of metronidazole, currently still has 1 day left of Keflex
Influenza:
-Patient reported having influenza over the last week ADMINISTRATIVE ASSISTANT DATA ENTRY and reported completing a course of Tamiflu
-COVID/Flu negative
insomnia: Melatonin PRN
Chronic bowel incontinence, likely secondary to XRT for prostate cancer, cont Metamucil PRN
Hyperlipidemia: Cont statin
GERD: cont PPI
Chronic Urinary retention: Cont Flomax
FULL/Lovenox
Medically cleared for discharge.
Total time spent on d/c = 34 min. This included today's physical exam, progress note, review of laboratory and diagnostic data, preparation of discharge documents and prescriptions, and discussions about the pt's hospital course and discharge plan
with the patient and other medical dermatologist involved in the patient's care.
Anticipated Discharge: Today
Subjective/Interval History
-
Date of Service: May 16, 2024
Denies shortness of breath.
Objective Data
-
Labs:
Laboratory Results
05/16/24
06:03
WBC 6.7
Hgb 13.5
Hct 41.1
Plt Count 129 L
Sodium 134 L
Potassium 4.4
Chloride 93 L
Carbon Dioxide 38 H
BUN 25 H
Creatinine 0.8
Glucose 205 H
Calcium 8.3 L
Vital Signs:
Vital Signs
Temp Pulse Resp BP Pulse Ox
97.4 F 73 18 143/71 97
05/16/24 07:14 05/16/24 08:43 05/16/24 08:11 05/16/24 08:43 05/16/24 08:11
I&O
05/15/24 05/16/24 05/17/24
06:59 06:59 06:59
Intake Total 780 / 780
Output Total 675 / 675 400 / 400
Balance -675 / -675 380 / 380
--- NOTE | 2024-05-16 11:13 | CM ---
Patient seen at bedside. Patient from [facility]. Patient on phone with aides 12 hours 7 days. Patient has home O2 and is in process of talking to pulmonology about CPAP. Patient declined VN at home. CM will continue to follow for discharge
planning needs.
Plan; home with aides/ home O2
[2024-05-16] MEDS: DELTASONE 20 MG PO (11:34)
--- NOTE | 2024-05-16 11:50 | W.PN.PUL.V3 ---
Today's Communication / Plan
-
Increase activity
Prednisone taper
Outpatient pulmonary follow-up
Assessment
-
Patient is a 83 year old M with history of severe COPD, on chronic O2, current smoker, presenting to ER for SOB/resp distress x 5 days. On arrival, EMS was concerned for distress and considered intubating en route but patient /declined. He was
then placed on CPAP and brought in. CXR showing mild edema. He is on PAP in ER, and confirmed DNR. We are consulted for eval 05/13/24.
Acute on chronic hypoxemic/hypercarbic respiratory failure
AECOPD
End stage COPD
Conditions present prior to admission:
[facility] 03-09 to : AECOPD. Again run out of nebulized BDs. O2 return to baseline 2L, d/c on prednisone taper
[facility] 11-29 to for AECOPD in suspected stage IV COPD, received ceftriaxone 3 d course by adm rekha, received tapering CSs.
Noted he run out of albuterol nebs due to frequent use due to uncontrolled dyspnea, could afford only half month supply
Chronic hypoxemic respiratory failure, suspected chronic hypercapnia (chronically elevated total serum CO2)
COVID illness, [facility] 01-24 to
Severe COPD, latest baseline from 2 to 2.5 L VERIFICATION MANAGER
Last seen in office-[facility] 04/01/23: FVC 1.02/28%, FEV1 0.26/10%, ratio 26%
6MWT confirms the need for 3 L O2 with ambulation.
History of E. coli bacteremia due to suspected biliary source 06/2021
Dilated CBD 1.8cm
Refused MRI testing due to refusal for mask use
H/o Prostate CA s/p XRT 2013
Chronic hypercarbia
Cholecystectomy
Chronic LILIBETH edema, mild
Obesity
Tobacco dependence: states quit 1 wk VERIFICATION MANAGER, states commitment to smoking cessation
Plan
Respiratory status has improved significantly
Continue BiPAP therapy at nighttime
Acute on chronic CO2 retention noted
Reviewed importance of OP PAP use, he was resistant to this but agreed to try every night-tolerating well
He is not sure if he has a functional PAP machine at home, we will arrange OP testing/set up
Request sent via [facility] today
Severe COPD-FEV1 0.26/10%
This is end stage disease which he is aware of.
He is currently DNR
Weaned back to home use of 2.5L NC
Transition to prednisone with taper
Continue DuoNeb's
Pulmicort twice a day while in the hospital
If doing well, can transition to prednisone in AM
More productive yellow sputum noted
Sputum culture pending
CXR showing possible edema, would not hurt to diuresis some as well
Last ECHO in 2021 stable, has not had repeat study
Aspiration precautions
Speech therapy evaluation 06/01/23-Regular consistency solids and thin liquids
Resume prior recommended diet
Cultures in past reviewed-unrevealing
Observe off antibiotics
Ongoing smoking cessation counseling
Quit only in the past 30 days
Nicotine patch PRN
DVT prophylaxis
Increase activity as tolerated
We discussed his prognosis in ER and he is aware. He has confirmed for me that he is DNR and would not want CPR/intubation.
He does want to be kept comfortable if he should clinically deteriorate. He states that his family knows his wishes.
Outpatient pulmonary FU arrangement for 1-2 weeks
Stable for proposed discharge from a pulmonary perspective
Diagnostic Data
CXR 05/13/24- Findings suggesting mild pulmonary interstitial edema.
CXRs 05-31-23, c/w 03-09 and 11-29-22. No pulmonary infiltrates. Somewhat prominent breast shadows
Chest CT: N/A
TTE 01-24-22 CONCLUSIONS: Normal left ventricular size, wall thickness and systolic function. No regional wall motion abnormalities are seen. LV ejection fraction is 65-70% by visual assessment. Diastolic function indeterminate. Normal right
ventricular size and function. Normal atria. Aortic sclerosis without stenosis. No other significant valve abnormalities were observed. Small pericardial effusion without evidence of hemodynamic compromise. No evidence of pulmonary hypertension. No
prior study available for comparison.
LILIBETH doppler 01-24-22: negative
[facility] 04/01/23: FVC 1.02/28%, FEV1 0.26/10%, ratio 26%, significant BD response in FEV1 (27%). Post BD results FVC 0.99/27%, FEV1 0.33/13%, ratio 34%. Very severe obstruction and suggestive of severe restrictive pattern.
Subjective Data
-
Date of Service:
Date of Service: May 16, 2024
Chief Complaint: Pulmonary Follow Up and Dyspnea Follow Up
Subjective:
Feels better, tolerating BiPAP, no chest pain, productive cough, increased chest congestion, abdominal pain or increased leg swelling
Review of Systems
General: Other (Per HPI)
Objective Data
Data Reviewed
Vital Signs / I&O:
Vital Signs
Temp Pulse Resp BP Pulse Ox
97.4 F 73 18 143/71 97
05/16/24 07:14 05/16/24 08:43 05/16/24 08:11 05/16/24 08:43 05/16/24 10:05
Intake and Output
05/15/24 05/16/24 05/17/24
06:59 06:59 06:59
Intake Total 780 / 780
Output Total 675 / 675 400 / 400
Balance -675 / -675 380 / 380
SaO2: 97
Nasal Cannula flow liters per minute: 3
Physical Exam
General: Respiratory Distress (mild, able to hold conversation, breathless), Comfortable and Other (NAD)
HEENT: Normocephalic, Anicteric and Moist Mucous Membranes
Cardiovascular: Regular Rhythm
Respiratory: Wheeze (slight, improving), Non-Labored Respirations and Other (barrel chest)
GI: Soft, Non Distended and Non Tender
Neurology: Awake, Alert, Oriented, AO x 3 and No Motor Deficits
Skin: Warm and Dry
Labs/Micro/Reports
Lab Data
05/16/24 06:03
05/16/24 06:03
Microbiology
05/15/24 12:44 Sputum Gram Stain - Preliminary
05/13/24 11:23 Nasal Swab Influenza Types A & B (BHUMI) - Final
Negative for Influenza A & B, NAAT
Negative results must be combined with clinical observations
and patient history.
Nucleic Acid Amplification test (NAAT)performed on the
[employer] NOW platform.
[2024-05-16 11:58] LABS: Glucose - Point of Care 166 mg/dl (70-99)
[2024-05-16 12:35] VITALS: BP 155/75
--- NOTE | 2024-05-16 13:46 | W.DCSUMMARY ---
Discharge Summary
Discharge Data
Date of Admission: 05/13/24
Date of Discharge: 05/16/24
-
Pending Results: No
Hospital Course
Primary diagnoses:
Acute on chronic hypoxemic and hypercapnic respiratory failure due to acute exacerbation of chronic obstructive pulmonary disease due to ongoing tobacco abuse disorder
Secondary diagnoses:
Paroxysmal atrial fibrillation
Recent diagnosis of infected hemorrhoids
Recent diagnosis of influenza
insomnia
Chronic bowel incontinence, likely secondary to radiation therapy for prostate cancer
Hyperlipidemia
Gastroesophageal reflux disease
Chronic Urinary retention
Consultants:
Pulmonary
Imaging:
CXR (read by me): Findings suggesting mild pulmonary interstitial edema.
ECG (read by me): NSR @ 99, L-axis, RBBB, LAFB, no acute ST/TW changes
Hospital course: 83-year-old male who presented with chief complaint of shortness of breath as outlined in the H&P done on admission. Admission the patient was diagnosed with acute on chronic hypoxemic and hypercapnic respiratory failure due to
acute exacerbation of COPD due to ongoing tobacco abuse disorder. ABG on admission showed respiratory acidosis with significant hypercapnia. The patient was initially on BiPAP /. Aepeat ABG after initiation of BIPAP with resolved respiratory
acidosis (suspect pCO2 of 63 fairly close to pt's baseline) He was weaned to his home oxygen flow rate of 2.5-3L NC O2. Patient was treated with IV Decadron and was transitioned to a prednisone taper on the day of discharge. He received DuoNebs
and Pulmicort. He was discharged in medically stable condition.
Discharge Plan
-
Patient Disposition: Home (Routine Discharge)
Discharge Diagnosis/Procedures: Acute on chronic hypoxemic and hypercapnic respiratory failure due to acute exacerbation of chronic obstructive pulmonary disease due to ongoing tobacco abuse disorder
Condition: Good
Diet: Diabetic, Carb Controlled
Activity: As tolerated
Driving Restrictions: As prior to admission
Referrals:
Ej España MD [Active] - in two weeks
(w/ [employer] ok
Sleep study/PAP set up)
Camila Rajput MD [Family Provider] - in less than 1 week
Prescriptions:
New
aspirin 81 mg Tablet,Chewable
81 mg PO DAILY Qty: 0 0RF
prednisone 10 mg tablet
10 mg PO DIRECTED Qty: 30 0RF
Rx Instructions:
Taper: 40mg daily x 3 days, 30mg daily x 3 days, 20mg daily x 3 days, 10mg daily x 3 days
Continued
atorvastatin 40 MG tablet
40 mg PO DAILY Qty: 30 0RF
diltiazem HCl 120 MG capsule,extended release 24hr
120 mg PO DAILY Qty: 30 0RF
albuterol sulfate 2.5 mg /3 mL (0.083 %) Solution For Nebulization
5 mg INHALATION R Q6HPRN PRN (Reason: wheezing)
albuterol sulfate 90 mcg/actuation Hfa Aerosol Inhaler
2 puff INHALATION R Q6HPRN PRN (Reason: wheezing)
cephalexin 250 mg Capsule
250 mg PO QID
Patient Comments:
05/13/24: filled 05/10/24, to take 1 capsule 4 times a day for 7 days
hydrocortisone 2.5 % cream with perineal applicator
1 applic [place] BID
Patient Comments:
05/13/24: filled 05/06/24, to apply twice a day for 10 days
budesonide 0.5 mg/2 mL Suspension For Nebulization
0.25 mg INHALATION R BID
tamsulosin 0.4 MG capsule
0.4 mg PO BID
omeprazole 20 MG capsule,delayed release(DR/EC)
20 mg PO DAILY
Discontinued
metronidazole 500 mg Tablet
500 mg PO TID
Patient Comments:
05/13/24: filled 05/06/24, to take 1 tablet 3 times a day for 7 days
Discharge Orders:
Discharge Patient (As Directed); Ordered 05/16/24
Ordered By: Kobe Srinivasan
Discharge Date and Time
Print Language: ARABIC
== END 2024-05-16 14:02 | disposition home or self-care (01) | DRG 189 ==
LOC: 4 EAST ACU 11:58
PROVIDERS: ADMITTING PHYSICIAN Internal Medicine; CONSULT PHYSICIAN Internal Medicine; EMERGENCY PHYSICIAN Emergency Medicine; FAMILY PHYSICIAN Internal Medicine
PROC: 5A09357 Assistance with Respiratory Ventilation, Less than 24 Consecutive Hours, Continuous Positive Airway Pressure (ICD-10-PCS; 2024-05-13)
DX: J96.21 Acute and chronic respiratory failure with hypoxia (principal); J44.1 Chronic obstructive pulmonary disease with (acute) exacerbation; I50.32 Chronic diastolic (congestive) heart failure; E87.29 Other acidosis; J96.22 Acute and chronic respiratory failure with hypercapnia; I48.0 Paroxysmal atrial fibrillation; E78.00 Pure hypercholesterolemia, unspecified; F17.200 Nicotine dependence, unspecified, uncomplicated; I11.0 Hypertensive heart disease with heart failure; E11.9 Type 2 diabetes mellitus without complications; K21.9 Gastro-esophageal reflux disease without esophagitis; I27.20 Pulmonary hypertension, unspecified; K64.9 Unspecified hemorrhoids; G47.00 Insomnia, unspecified; R15.9 Full incontinence of feces; R33.9 Retention of urine, unspecified; J11.1 Influenza due to unidentified influenza virus with other respiratory manifestations; Y84.2 Radiological procedure and radiotherapy as the cause of abnormal reaction of the patient, or of later complication, without mention of misadventure at the time of the procedure; Z66 Do not resuscitate; Z90.49 Acquired absence of other specified parts of digestive tract; Z79.82 Long term (current) use of aspirin; Z79.4 Long term (current) use of insulin; Z79.51 Long term (current) use of inhaled steroids; Z99.81 Dependence on supplemental oxygen; Z11.52 Encounter for screening for COVID-19; Z87.01 Personal history of pneumonia (recurrent); Z86.16 Personal history of COVID-19; Z85.46 Personal history of malignant neoplasm of prostate; Z92.3 Personal history of irradiation
CPT/HCPCS: 36600; 71045; 80048; 80053; 82805; 82962; 83036; 83735; 83880; 84484; 85025; 85610; 85730; 87070; 87077; 87186; 87205; 87502; 87811; 93005; 94640; 94644; 94660; 96374; 96375; 97162; 97166; 97530; 97535; 99291

== ENCOUNTER 2024-05-27 15:21 | Emergency (ER) | payer OTHER, SELFPAY ==
[2024-05-27 15:33] VITALS: BP 151/78
--- NOTE | 2024-05-27 15:43 | ED.GENMED ---
History of Present Illness
<NANCI Wang - Last Filed: 05/27/24 22:52>
General
Chief Complaint: Back Pain
Source: patient
Exam Limitations: none
Time Seen by Provider: 05/27/24 15:41
History of Present Illness
History of Present Illness:
pt is an 83 yr old with a past medical history of COPD recently admitted May 13 to May 16 for respiratory failure due to COPD presents to the ER with low back pain. Patient reports he actually felt the back pain when he was here at the end of
his hospital stay with pushing down on the bed. Since then he has had pain across his low back. He lives at home on his own he does not walk because of shortness of breath he uses a wheelchair he does have an aide come in several times a day. He
has not taken anything for pain because he was afraid to take anything [id number] but pain has become worse. Pain is worse with movement. He feels better at rest. He called his family doctor who did not get back to him. He called EMS. He
complains of pain across his low back. He denies any radiation. It is worse with movement. He denies any chest pain shortness of breath fever chills. His breathing is better and he was not here for his breathing. He initially did not tell me
but RN noted that patient has a rash to his left arm extending into his left chest. Patient reports this started after he got home from the hospital. His left arm is little sore.
Past History
<NANCI Wang - Last Filed: 05/27/24 22:52>
Past History
ED Past Medical History: Cancer, COPD, HTN, Hypercholesterolemia, NIDDM and Other (COVID pneumonitis January 2022)
ED Past Surgical History: Cholecystectomy and Urological
Social History
Tobacco: Smoker
Alcohol: None
Personal:
Living: alone
Employment: Retired
Family History
Family History: Other (Noncontributory)
Review of Systems
<NANCI Wang - Last Filed: 05/27/24 22:52>
Review of Systems
Allergies reviewed?: Yes
All Other Systems: ROS reviewed and negative except as documented in HPI and ROS
Constitutional: Reports no symptoms
Respiratory: Denies trouble breathing
Cardiac: Reports no symptoms
ABD/GI: Reports no symptoms
: Denies incontinence
Musculoskeletal: Reports back pain (pain across low back )
Skin: Reports rash (left arm )
Neurological: Reports no symptoms
Psychiatric: Reports no symptoms
Phy Exam
<NANCI Wang - Last Filed: 05/27/24 22:52>
General Physical Exam
General Presentation: no apparent distress
General age: appears stated age
General Skin: warm and dry
General Habitus: elderly
General Mental: alert
Cardiovascular Exam
Cardiovascular Exam: regular rate/rhythm, no murmur and normal peripheral pulses
Pulmonary Exam
Pulmonary Exam: no respiratory distress and other (decreased )
Neurological Exam
Neurological Exam: alert, oriented x3 and other (nml distal sensation to b/l l/e with nml strength b/l )
Musculoskeletal Exam
Musculoskeletal Exam: other (tender to b/l para lumbar muscle region ; + left arm rash ;areas of rash are raised some are macular )
Skin Exam
Skin Exam: normal color, warm/dry and other (See above note)
Psychiatric Exam
Psychiatric Exam: normal mood/affect
Course
<NANCI Wang - Last Filed: 05/27/24 22:52>
Orders/Labs/Results
Orders:
Orders
05/27/24 15:58
Lumbar Spine Complete, 4 View [CR Lumbar Spine Comp Min 4 Vw*] Urgent
Comment:
Reason For Exam: low back pain
05/27/24 15:59
Acetaminophen [Tylenol] 650 mg PO NOW STA
Lidocaine [Lidocaine 4% Patch] 1 patch TOPICAL NOW STA
Apply Lidocaine patch(s) to:: low back
Vital Signs
Initial and Last Documented VS:
Initial Vital Signs
Temp Pulse Resp BP Pulse Ox
98.1 F 105 24 151/78 96
05/27/24 15:33 05/27/24 15:33 05/27/24 15:33 05/27/24 15:33 05/27/24 15:33
Last Documented Vital Signs
Temp Pulse Resp BP Pulse Ox
98.1 F 95 16 148/81 97
05/27/24 15:33 05/27/24 18:12 05/27/24 18:12 05/27/24 18:12 05/27/24 18:12
Building Manager consulted with Physician
Building Manager consulted with physician?: Yes
Name of Physician Consulted: Gustavo
<Ari Chen MD - Last Filed: 05/27/24 17:41>
Orders/Labs/Results
Orders:
Orders
05/27/24 15:58
Lumbar Spine Complete, 4 View [CR Lumbar Spine Comp Min 4 Vw*] Urgent
Comment:
Reason For Exam: low back pain
05/27/24 15:59
Acetaminophen [Tylenol] 650 mg PO NOW STA
Lidocaine [Lidocaine 4% Patch] 1 patch TOPICAL NOW STA
Apply Lidocaine patch(s) to:: low back
Vital Signs
Initial and Last Documented VS:
Initial Vital Signs
Temp Pulse Resp BP Pulse Ox
98.1 F 105 24 151/78 96
05/27/24 15:33 05/27/24 15:33 05/27/24 15:33 05/27/24 15:33 05/27/24 15:33
Last Documented Vital Signs
Temp Pulse Resp BP Pulse Ox
98.1 F 95 16 148/81 97
08/07/24 15:33 05/27/24 18:12 05/27/24 18:12 05/27/24 18:12 05/27/24 18:12
<NANCI Wang - Last Filed: 05/27/24 22:52>
MDM/Problems Addressed
Differential Diagnosis Includes:
not limited to: Muscular back pain, shingles not related
MDM/Problems Addressed:
As documented patient is an 83-year-old male who presents to the ER complaining of low back pain. He was hospitalized recently and while here the hospital put something down in his bed and felt pain across his lower back and has had pain since. He
has not taken anything [id number] for this. He reports pain is worse with movement better at rest. He denies any trauma. Incidentally he also has a rash to his left arm and left upper back. This rash is consistent with shingles this rash
has been over a week. Because his pain is across his lower back and is bilateral this is likely not related. Patient on x-ray does incidentally have an L2 vertebral body compression fracture however likely remote patient was eval by ED physician.
Patient received Tylenol and lidocaine patch he does feel well left to go home he is in no acute distress here. He has no other complaints no complaints of fever chills shortness of breath. Will DC with antiviral even though it has been a week
for zoster and as far as back pain will DC with Tylenol and lidocaine patch close the patient fell with family doctor I discussed that having doctor may prescribe physical therapy. I did review with patient compression fracture also will refer to
orthopedics
<NANCI Wang - Last Filed: 05/27/24 22:52>
*Radiology
Radiology exam reviewed: radiology read reviewed
*Critical Care Note
Total Time (30-74mins, 75-104mins- exclusive of procedures): Not Applicable
ED Attending Note
<NANCI Wang - Last Filed: 08/07/24 22:52>
-
Portions of this chart may have been created with voice recognition software.� Occasional wrong word or��sound alike� substitutions may have occurred due to the inherent limitations of voice recognition software.
<Ari Chen MD - Last Filed: 05/27/24 17:41>
ED Attending Note
Patient seen and examined by attending physician: Yes
I performed the substantive portion of visit, reviewed & personally made and approve the management plan that is documented in note by myself or KAREEM.: Yes
ED Attending Note:
Patient primary here for low back pain. Muscular in nature. Is been going on for a week. Started when pushing to get into bed in the hospital. No distal numbness tingling or weakness. No abdominal pain. No urinary symptoms. No fever or
chills. In addition patient has had a rash to his left arm for a week.
On exam patient is nontoxic in no distress. Warm and dry. Perfusing well. Lungs clear and equal. Heart regular rate and rhythm. Abdomen soft nontender. No pulsatile masses. Good distal pulses and color. Negative raising. Good distal dorsi
and plantarflexion of the foot. Clearly winces in pain with sitting up although is able to sit up. No lower spinal swelling or erythema. Patient has a vesicular rash to the left arm mostly on the basilic side. Extends up towards the axilla.
Consistent with shingles.
Impression muscular low back pain. Questionable superior endplate fracture by x-ray. Pain management for the low back. Do not feel the rash has any bearing on the low back issues. Has had symptoms for a week. Unlikely that antivirals would make
a big difference however will give it a try.
Discharge Plan
Departure
Patient Disposition: Home (Routine Discharge)
Date of Disposition: 05/27/24
Time of Disposition: 18:05
Patient with high blood pressure during this ER visit?: Yes
Covid-19: Not Applicable
Discharge Problem:
Low back pain, Herpes zoster, Compression fracture
Instructions: Low Back Pain (DC), Vertebral Compression Fracture (DC), Shingles, BLOOD PRESSURE
Prescriptions:
New
valacyclovir 1 gram tablet
1,000 mg PO Q8H Qty: 21 0RF
lidocaine 5 % adhesive patch,medicated
1 patch topical DAILY Qty: 15 0RF
Rx Instructions:
remove after 12 hrs
No Action
atorvastatin 40 MG tablet
40 mg PO DAILY Qty: 30 0RF
diltiazem HCl 120 MG capsule,extended release 24hr
120 mg PO DAILY Qty: 30 0RF
albuterol sulfate 2.5 mg /3 mL (0.083 %) Solution For Nebulization
5 mg INHALATION R Q6HPRN PRN (Reason: wheezing)
albuterol sulfate 90 mcg/actuation Hfa Aerosol Inhaler
2 puff INHALATION R Q6HPRN PRN (Reason: wheezing)
cephalexin 250 mg Capsule
250 mg PO QID
Patient Comments:
05/13/24: filled 05/10/24, to take 1 capsule 4 times a day for 7 days
hydrocortisone 2.5 % cream with perineal applicator
1 applic IN BID
Patient Comments:
05/13/24: filled 05/06/24, to apply twice a day for 10 days
budesonide 0.5 mg/2 mL Suspension For Nebulization
0.25 mg INHALATION R BID
tamsulosin 0.4 MG capsule
0.4 mg PO BID
omeprazole 20 MG capsule,delayed release(DR/EC)
20 mg PO DAILY
aspirin 81 mg Tablet,Chewable
81 mg PO DAILY Qty: 0 0RF
prednisone 10 mg tablet
10 mg PO DIRECTED Qty: 30 0RF
Rx Instructions:
Taper: 40mg daily x 3 days, 30mg daily x 3 days, 20mg daily x 3 days, 10mg daily x 3 days
Referrals:
Peter Farias, DO [Non-Admitting Privileges] -
UNKNOWN - PT DOES,NOT KNOW [Family Provider] -
Activity Restrictions/Additional Instructions:
For back pain:
This is likely muscular back pain. You may take Tylenol 650 mg every 4-6 hours for back pain. In addition a prescription for lidocaine pain patch was sent to pharmacy take as directed.
Incidentally you are found to have shingles here in the ER and a prescription for antiviral medication was sent to your pharmacy take as directed.
Follow-up with family doctor in the next 2 days for reevaluation of your symptoms
In addition with follow-up with orthopedics as discussed for further evaluation of lumbar compression fracture. You may need physical therapy. It is unclear if this is new or old
Return if any woresning of symptoms
Interventions
Interventions:
*Risk Screen - Suicide Last Done: 05/27/24 15:33
*General Assessment Last Done: 05/27/24 15:33
*Neglect/Abuse Screening Last Done: 05/27/24 15:33
ED- Fall Risk Assessment Last Done: 05/27/24 18:48
*ED COVID-19 Vaccine History Last Done: 05/27/24 15:41
*Nursing Disposition Last Done: 05/27/24 18:48
ED-Musculoskeletal Assessment Last Done: 05/27/24 15:41
Discharge Date and Time
Discharge Date/Time: 05/27/24 18:48
Print Language: BURMESE
[2024-05-27] MEDS: TYLENOL 650 MG PO (16:07)
[2024-05-27] MEDS: LIDOCAINE 4% PATCH 1 PATCH TOPICAL (16:07)
[2024-05-27 18:12] VITALS: BP 148/81
== END 2024-05-27 18:48 | disposition home or self-care (01) ==
LOC: EMR 15:21
PROVIDERS: EMERGENCY PHYSICIAN Emergency Medicine
DX: S32.020A Wedge compression fracture of second lumbar vertebra, initial encounter for closed fracture (principal); B02.9 Zoster without complications; F17.200 Nicotine dependence, unspecified, uncomplicated; I10 Essential (primary) hypertension; J44.9 Chronic obstructive pulmonary disease, unspecified
CPT/HCPCS: 99283; 72110

== ENCOUNTER 2024-06-05 09:09 | Emergency (ER) | payer OTHER, SELFPAY ==
[2024-06-05 09:18] VITALS: BP 146/79
--- NOTE | 2024-06-05 09:38 | ED.GENMED ---
History of Present Illness
General
Chief Complaint: Skin Problem
Source: patient
Exam Limitations: none
Time Seen by Provider: 06/05/24 09:26
History of Present Illness
History of Present Illness:
83-year-old male returns for reevaluation of shingles. Seen for back pain and rash May 27. Back pain has resolved. Patient is finished his antiviral medication. He is not taking Tylenol. He states it makes him a little dehydrated. No fever
chills no weakness in the arm. No chest pain shortness of breath back pain.
Past History
Past History
ED Past Medical History: Cancer, COPD, HTN, Hypercholesterolemia, NIDDM and Other (COVID pneumonitis January 2022)
ED Past Surgical History: Cholecystectomy and Urological
Social History
Tobacco: Smoker
Alcohol: None
Personal:
Living: alone
Employment: Retired
Family History
Family History: Other (Noncontributory)
Review of Systems
Review of Systems
All Other Systems: Not applicable
Constitutional: Denies fever or chills
Phy Exam
Physical Exam
Physical Exam:
GENERAL: Alert and oriented in no apparent distress. Currently sitting in a wheelchair nontoxic
EYE: Orbits normal.
CARDIAC: Regular rate and rhythm
LUNGS: Oxygen in place. No respiratory distress
NEUROLOGICAL: Alert and oriented , grossly non-focal
SKIN: Warm and dry, drying rash to the left arm on the basilic side extending to the fourth and fifth finger hand basilic side of the forearm and upper arm into the axilla. Small area of rash on the chest wall on the left side only and a small
patch on the left back only
MUSCULOSKELETAL: No edema,no deformity.Good color. Good distal pulses to the hand. Good capillary refill.
PSYCH: Normal and appropriate interaction.
Course
Vital Signs
Initial and Last Documented VS:
Initial Vital Signs
Temp Pulse Resp BP Pulse Ox
98.2 F 103 22 146/79 93
06/05/24 09:18 06/05/24 09:18 06/05/24 09:18 06/05/24 09:18 06/05/24 09:18
Last Documented Vital Signs
Temp Pulse Resp BP Pulse Ox
98.2 F 103 22 146/79 93
06/05/24 09:18 06/05/24 09:18 06/05/24 09:18 06/05/24 09:18 06/05/24 09:18
MDM/Problems Addressed
Differential Diagnosis Includes:
Rash was reevaluated. I still feel this is a shingles rash and actually appears to be improving with some drying of the rash. All consistent with dermatomal shingles. Nothing to support vascular issue. Back pain has resolved. Patient is not on
any pain management at this time. Will give a small dose of narcotic although I asked him to try only half a tab if needed. Will also try low-dose gabapentin
*Pulse Oximetry
Patient hypoxic: no
*Critical Care Note
Total Time (30-74mins, 75-104mins- exclusive of procedures): Not Applicable
ED Attending Note
-
Portions of this chart may have been created with voice recognition software.� Occasional wrong word or��sound alike� substitutions may have occurred due to the inherent limitations of voice recognition software.
Discharge Plan
Departure
Patient Disposition: Home (Routine Discharge)
Date of Disposition: 06/05/24
Time of Disposition: 09:41
Patient with high blood pressure during this ER visit?: Yes
Discharge Problem:
Shingles/postherpetic pain
Instructions: Shingles, BLOOD PRESSURE
Prescriptions:
New
hydrocodone-acetaminophen 5-300 mg tablet
0.5 tab PO Q8H PRN (Reason: Pain) Qty: 14 0RF
gabapentin 100 mg capsule
100 mg PO BID Qty: 30 0RF
No Action
atorvastatin 40 MG tablet
40 mg PO DAILY Qty: 30 0RF
diltiazem HCl 120 MG capsule,extended release 24hr
120 mg PO DAILY Qty: 30 0RF
albuterol sulfate 2.5 mg /3 mL (0.083 %) Solution For Nebulization
5 mg INHALATION R Q6HPRN PRN (Reason: wheezing)
albuterol sulfate 90 mcg/actuation Hfa Aerosol Inhaler
2 puff INHALATION R Q6HPRN PRN (Reason: wheezing)
cephalexin 250 mg Capsule
250 mg PO QID
Patient Comments:
05/13/24: filled 05/10/24, to take 1 capsule 4 times a day for 7 days
hydrocortisone 2.5 % cream with perineal applicator
1 applic [place] BID
Patient Comments:
05/13/24: filled 05/06/24, to apply twice a day for 10 days
budesonide 0.5 mg/2 mL Suspension For Nebulization
0.25 mg INHALATION R BID
tamsulosin 0.4 MG capsule
0.4 mg PO BID
omeprazole 20 MG capsule,delayed release(DR/EC)
20 mg PO DAILY
aspirin 81 mg Tablet,Chewable
81 mg PO DAILY Qty: 0 0RF
prednisone 10 mg tablet
10 mg PO DIRECTED Qty: 30 0RF
Rx Instructions:
Taper: 40mg daily x 3 days, 30mg daily x 3 days, 20mg daily x 3 days, 10mg daily x 3 days
valacyclovir 1 gram tablet
1,000 mg PO Q8H Qty: 21 0RF
lidocaine 5 % adhesive patch,medicated
1 patch topical DAILY Qty: 15 0RF
Rx Instructions:
remove after 12 hrs
Referrals:
UNKNOWN - PT DOES,NOT KNOW [Family Provider] -
Activity Restrictions/Additional Instructions:
Start with Tylenol for pain ...if you feel it makes you dehydrated take extra fluids.
You can try a half of Vicodin initially if the Tylenol is not enough. If you tolerate this well you could increase it to a full like it and but only when the pain is more severe
Do not take the Vicodin if you have taken Tylenol within the 4-hour period since there is Tylenol and Vicodin
Take the gabapentin twice a day
The prescriptions were sent to your pharmacy
Follow-up closely with your primary physician
Interventions
Interventions:
*Risk Screen - Suicide Last Done: 06/05/24 09:18
*General Assessment Last Done: 06/05/24 09:18
*Neglect/Abuse Screening Last Done: 06/05/24 09:18
Discharge Date and Time
Print Language: QATARI
[2024-06-05] MEDS: TYLENOL 650 MG PO (09:51)
== END 2024-06-05 10:02 | disposition home or self-care (01) ==
LOC: EMR 09:09
PROVIDERS: EMERGENCY PHYSICIAN Emergency Medicine
DX: B02.9 Zoster without complications (principal); I10 Essential (primary) hypertension; F17.200 Nicotine dependence, unspecified, uncomplicated
CPT/HCPCS: 99283

== ENCOUNTER 2024-06-08 14:29 | Emergency (ER) | payer OTHER, SELFPAY ==
[2024-06-08 14:42] VITALS: BP 139/81
--- NOTE | 2024-06-08 15:35 | ED.GENMED ---
History of Present Illness
General
Chief Complaint: Prescription Refill
Source: patient
Exam Limitations: none
Time Seen by Provider: 06/08/24 15:27
Nursing documentation reviewed up to this point in time: agreed with
History of Present Illness
History of Present Illness:
83 yr old male presents to the ER for evaluation. Patient was diagnosed with shingles here in the ER May 27 and was treated with antiviral medication. At that time he had shingles to his left back and left arm. Patient was seen also June 05
(3 d ago) for pain related to the shingles rash and was given a pain prescription for hydrocodone/acetaminophen as well as gabapentin. He has not been taking the gabapentin as instructed because he was not under the impression this was also for
treatment of pain. He does have this prescription at home.
He has also in between family doctors and cannot get an appoint with family doctor.
He denies any other symptoms no fever chills. He has chronic COPD on chronic oxygen no shortness of breath.
Past History
Past History
ED Past Medical History: Cancer, COPD, HTN, Hypercholesterolemia, NIDDM and Other (COVID pneumonitis January 2022)
ED Past Surgical History: Cholecystectomy and Urological
Social History
Tobacco: Smoker
Alcohol: None
Personal:
Living: alone
Employment: Retired
Family History
Family History: Other (Noncontributory)
Review of Systems
Review of Systems
Allergies reviewed?: Yes
All Other Systems: ROS reviewed and negative except as documented in HPI and ROS
Constitutional: Reports no symptoms; Denies fever, fatigue or chills
Respiratory: Reports no symptoms; Denies trouble breathing
Musculoskeletal: Reports other (Pain to the left arm)
Skin: Reports other (Healing shingles rash to left arm)
Neurological: Reports no symptoms
Psychiatric: Reports no symptoms
Phy Exam
General Physical Exam
General Presentation: well appearing
General age: appears stated age
General Skin: warm and dry
General Habitus: elderly
General Mental: alert
General Hydration: appears well hydrated
Cardiovascular Exam
Cardiovascular Exam: regular rate/rhythm
Neurological Exam
Neurological Exam: alert and oriented x3
Musculoskeletal Exam
Musculoskeletal Exam: other (Healing scabbed over lesions to left hand )
Skin Exam
Skin Exam: normal color and warm/dry
Psychiatric Exam
Psychiatric Exam: normal mood/affect
Course
Vital Signs
Initial and Last Documented VS:
Initial Vital Signs
Temp Pulse Resp BP Pulse Ox
97.9 F 80 18 139/81 92
06/08/24 14:42 06/08/24 14:42 06/08/24 14:42 06/08/24 14:42 06/08/24 14:42
Last Documented Vital Signs
Temp Pulse Resp BP Pulse Ox
97.9 F 80 18 139/81 92
06/08/24 14:42 06/08/24 14:42 06/08/24 14:42 06/08/24 14:42 06/08/24 14:42
MDM/Problems Addressed
MDM/Problems Addressed:
As documented patient was diagnosed with shingles May 27 seen here 3 days ago for pain given narcotic prescription as well as gabapentin however is not taking gabapentin as instructed because he was not aware this is for pain. He ran out of his
narcotic. I explained the patient the gabapentin will treat his symptoms there is possible the patient has postherpetic neuralgia. He has scabbed over lesions to his left hand from shingles rash.
He is in between family doctors. Will have him continue gabapentin he may also take Tylenol and will give him information for family practice clinic. He is to return if any worsening of symptoms however he is nontoxic he has no other complaints
except for pain related to shingles.
Chronic conditions affecting care:
copd no resp complaints
*Critical Care Note
Total Time (30-74mins, 75-104mins- exclusive of procedures): Not Applicable
Data Reviewed
Review of Other/Old Records Reveals: Other (Previous ED visit)
ED Attending Note
-
Portions of this chart may have been created with voice recognition software.� Occasional wrong word or��sound alike� substitutions may have occurred due to the inherent limitations of voice recognition software.
Discharge Plan
Departure
Patient Disposition: Home (Routine Discharge)
Date of Disposition: 06/08/24
Time of Disposition: 15:47
Patient with high blood pressure during this ER visit?: Yes
Covid-19: Not Applicable
Discharge Problem:
Pain
Instructions: BLOOD PRESSURE
Prescriptions:
No Action
atorvastatin 40 MG tablet
40 mg PO DAILY Qty: 30 0RF
diltiazem HCl 120 MG capsule,extended release 24hr
120 mg PO DAILY Qty: 30 0RF
albuterol sulfate 2.5 mg /3 mL (0.083 %) Solution For Nebulization
5 mg INHALATION R Q6HPRN PRN (Reason: wheezing)
albuterol sulfate 90 mcg/actuation Hfa Aerosol Inhaler
2 puff INHALATION R Q6HPRN PRN (Reason: wheezing)
cephalexin 250 mg Capsule
250 mg PO QID
Patient Comments:
05/13/24: filled 05/10/24, to take 1 capsule 4 times a day for 7 days
hydrocortisone 2.5 % cream with perineal applicator
1 applic [place] BID
Patient Comments:
05/13/24: filled 05/06/24, to apply twice a day for 10 days
budesonide 0.5 mg/2 mL Suspension For Nebulization
0.25 mg INHALATION R BID
tamsulosin 0.4 MG capsule
0.4 mg PO BID
omeprazole 20 MG capsule,delayed release(DR/EC)
20 mg PO DAILY
aspirin 81 mg Tablet,Chewable
81 mg PO DAILY Qty: 0 0RF
prednisone 10 mg tablet
10 mg PO DIRECTED Qty: 30 0RF
Rx Instructions:
Taper: 40mg daily x 3 days, 30mg daily x 3 days, 20mg daily x 3 days, 10mg daily x 3 days
valacyclovir 1 gram tablet
1,000 mg PO Q8H Qty: 21 0RF
lidocaine 5 % adhesive patch,medicated
1 patch topical DAILY Qty: 15 0RF
Rx Instructions:
remove after 12 hrs
hydrocodone-acetaminophen 5-300 mg tablet
0.5 tab PO Q8H PRN (Reason: Pain) Qty: 14 0RF
gabapentin 100 mg capsule
100 mg PO BID Qty: 30 0RF
Referrals:
[facility] [Provider Group]
[facility] [Outside]
Activity Restrictions/Additional Instructions:
Please continue to take your gabapentin as previously instructed. In addition you may take Tylenol. Follow-up with family practice clinic.
they will reach out to you to make an appointment return if any worsening of symptoms
Interventions
Interventions:
*Risk Screen - Suicide Last Done: 06/08/24 14:42
*General Assessment Last Done: 06/08/24 14:42
*Neglect/Abuse Screening Last Done: 06/08/24 14:42
Discharge Date and Time
Print Language: PAKISTANI
[2024-06-08] MEDS: TYLENOL 650 MG PO (15:52)
[2024-06-08] MEDS: NEURONTIN 100 MG PO (15:53)
== END 2024-06-08 15:56 | disposition home or self-care (01) ==
LOC: EMR 14:29
PROVIDERS: EMERGENCY PHYSICIAN Emergency Medicine
DX: R52 Pain, unspecified (principal); Z76.0 Encounter for issue of repeat prescription; J44.9 Chronic obstructive pulmonary disease, unspecified; I10 Essential (primary) hypertension; E78.00 Pure hypercholesterolemia, unspecified; E11.9 Type 2 diabetes mellitus without complications; F17.200 Nicotine dependence, unspecified, uncomplicated; Z86.16 Personal history of COVID-19; Z90.49 Acquired absence of other specified parts of digestive tract; Z99.81 Dependence on supplemental oxygen
CPT/HCPCS: 99282

== ENCOUNTER 2024-08-14 11:33 | Emergency (ER) | payer OTHER, SELFPAY ==
[2024-08-14 11:37] VITALS: BP 127/69
--- NOTE | 2024-08-14 12:13 | ED.GENMED ---
History of Present Illness
General
Chief Complaint: Fall
Source: patient
Exam Limitations: none
Time Seen by Provider: 08/14/24 12:01
History of Present Illness
History of Present Illness:
See MDM
Past History
Past History
ED Past Medical History: Cancer, COPD, HTN, Hypercholesterolemia, NIDDM and Other (COVID pneumonitis January 2022)
ED Past Surgical History: Cholecystectomy and Urological
Social History
Tobacco: Smoker
Alcohol: None
Personal:
Living: alone
Employment: Retired
Family History
Family History: Other (Noncontributory)
Phy Exam
Physical Exam
Physical Exam:
See MDM
Course
Orders/Labs/Results
Orders:
Orders
08/14/24 12:08
Acetaminophen [Tylenol] 650 mg PO NOW STA
CR Ribs-left 3 Vw W/pa Chest Urgent
Comment:
Reason For Exam: fall, left lower posterior rib pain
08/14/24 12:23
CPK [Creatine Phosphokinase] Urgent
Complete Blood Count/With Diff Urgent
Comprehensive Metabolic Panel Urgent
08/14/24 14:11
Gabapentin [Neurontin] 100 mg PO NOW STA
Abnormal Lab Results
08/14/24
12:23
RBC 4.44 L 10^6/uL
(4.70-6.10)
MCV 98.4 H fL
(80.0-94.0)
MCHC 31.4 L g/dL
(33.0-37.0)
RDW 14.8 H %
(11.5-14.5)
MPV 11.0 H fL
(7.4-10.4)
Abs Immat Gran (auto) 0.1 H 10^3/uL
(0-0.05)
Absolute Neuts (auto) 7.9 H 10^3/uL
(1.4-6.5)
Absolute Lymphs (auto) 0.5 L 10^3/uL
(1.2-3.4)
Immature Gran % 0.6 H %
(0-0.5)
Neutrophils % 89.6 H %
(42.2-75.2)
Lymphocytes % 5.1 L %
(20.5-51.1)
Carbon Dioxide 35 H mmol/L
(22-30)
BUN 30 H mg/dl
(9-20)
Creatinine 0.6 L mg/dL
(0.7-1.3)
Glucose 289 H mg/dl
(70-99)
Creatine Kinase 50 L U/L
(55-170)
Total Protein 5.5 L g/dl
(6.3-8.2)
Albumin 3.4 L g/dl
(3.5-5.0)
08/14/24 12:23
08/14/24 12:23
Vital Signs
Initial and Last Documented VS:
Initial Vital Signs
Temp Pulse Resp BP Pulse Ox
98.4 F 110 16 127/69 93
08/14/24 11:37 08/14/24 11:37 08/14/24 11:37 08/14/24 11:37 08/14/24 11:37
Last Documented Vital Signs
Temp Pulse Resp BP Pulse Ox
98.4 F 104 19 127/69 91
08/14/24 11:37 08/14/24 12:30 08/14/24 14:00 08/14/24 11:37 08/14/24 12:30
MDM/Problems Addressed
Differential Diagnosis Includes:
HPI and MDM Narrative:
83-year-old male presenting with left rib pain after a fall. Patient states he fell 2 days ago in the shower and laid on the floor for 7 hours. Patient states he takes blood thinners and has been taking Tylenol with minimal relief for the pain. I
did offer Percocet or low-dose narcotics and patient declined. Will give dose of Tylenol. Patient does have bruising to left lower posterior ribs. Will obtain x-ray. Given duration of fall with no headache or neurodeficits, doubt clinically
relevant intracranial bleeding.
Physical exam
General: Well appearing and non-toxic
HEENT: protecting airway
Neck: appears supple
CV: No evidence of cyanosis
Resp: No accessory muscle use. Lungs clear
Back: Bruising noted to left posterior lower ribs
Abd: Non-distended
Extremities: No deformities
Neuro: alert
Psych: Normal affect
Skin: Intact
Problems Addressed including Acute and Chronic Conditions affecting care:
1. Rib pain status post fall
Acuity: acute
Prognosis: stable
Details: Will obtain x-ray with concern for rib fracture
2. Prolonged downtime
Acuity: acute
Prognosis: stable
Details: Will obtain CPK and creatinine
Updates
Chest x-ray negative for obvious rib fractures. I did discuss his elevated blood sugar. He confirms that he is on steroids. I discussed talking to his doctor about increasing his insulin.
Patient requesting refill of his gabapentin for his post herpetic neuralgia
Differential Diagnosis (but not limited to): Rib fracture, rib contusion, rhabdomyolysis
Testing considered: CT head but patient denies headache
Drug therapy (if applicable): OTC meds, please see d/c instruction regarding Rx drugs
Amount and/or Complexity of Data Reviewed
Clinical info obtained from: Patient
External data reviewed: N/A
Labs I independently reviewed (but not limited to): CPK normal
Radiology: X-ray independently reviewed: No obvious rib fracture on chest x-ray
Pulse Ox: not hypoxic
EKG independently reviewed: N/A
District Representative: N/A
Critical Care: N/A
Risk of Complication:
Social Determinants of health: Good social support
Discussed with other providers: N/A
Escalation of Care includes Admit/Obs: After being observed in the Emergency Department, pt stable for discharge.
Occasional wrong word or 'sound a like' substitutions may have occurred due to the inherent limitations of voice recognition software. Read the chart carefully and recognize, using context, where substitutions have occurred.
*Critical Care Note
Total Time (30-74mins, 75-104mins- exclusive of procedures): Not Applicable
ED Attending Note
-
Portions of this chart may have been created with voice recognition software.� Occasional wrong word or��sound alike� substitutions may have occurred due to the inherent limitations of voice recognition software.
Discharge Plan
Departure
Patient Disposition: Home (Routine Discharge)
Date of Disposition: 08/14/24
Time of Disposition: 14:14
Patient with high blood pressure during this ER visit?: No
Discharge Problem:
Contusion of rib on left side
Instructions: Bruised Rib (DC)
Prescriptions:
New
gabapentin 100 mg capsule
100 mg PO BID Qty: 20 0RF
No Action
atorvastatin 40 MG tablet
40 mg PO DAILY Qty: 30 0RF
diltiazem HCl 120 MG capsule,extended release 24hr
120 mg PO DAILY Qty: 30 0RF
albuterol sulfate 2.5 mg /3 mL (0.083 %) Solution For Nebulization
5 mg INHALATION R Q6HPRN PRN (Reason: wheezing)
albuterol sulfate 90 mcg/actuation Hfa Aerosol Inhaler
2 puff INHALATION R Q6HPRN PRN (Reason: wheezing)
cephalexin 250 mg Capsule
250 mg PO QID
Patient Comments:
05/13/24: filled 05/10/24, to take 1 capsule 4 times a day for 7 days
hydrocortisone 2.5 % cream with perineal applicator
1 applic NM BID
Patient Comments:
05/13/24: filled 05/06/24, to apply twice a day for 10 days
budesonide 0.5 mg/2 mL Suspension For Nebulization
0.25 mg INHALATION R BID
tamsulosin 0.4 MG capsule
0.4 mg PO BID
omeprazole 20 MG capsule,delayed release(DR/EC)
20 mg PO DAILY
aspirin 81 mg Tablet,Chewable
81 mg PO DAILY Qty: 0 0RF
prednisone 10 mg tablet
10 mg PO DIRECTED Qty: 30 0RF
Rx Instructions:
Taper: 40mg daily x 3 days, 30mg daily x 3 days, 20mg daily x 3 days, 10mg daily x 3 days
valacyclovir 1 gram tablet
1,000 mg PO Q8H Qty: 21 0RF
lidocaine 5 % adhesive patch,medicated
1 patch topical DAILY Qty: 15 0RF
Rx Instructions:
remove after 12 hrs
hydrocodone-acetaminophen 5-300 mg tablet
0.5 tab PO Q8H PRN (Reason: Pain) Qty: 14 0RF
gabapentin 100 mg capsule
100 mg PO BID Qty: 30 0RF
Referrals:
Camila Rajput MD [Family Provider] -
Activity Restrictions/Additional Instructions:
Please return for any worsening symptoms.
You may return at any time if you have further concerns.
Please follow up with your doctor at the first available appointment, preferably this week.
Thank you for choosing [facility].
Interventions
Interventions:
*Risk Screen - Suicide Last Done: 08/14/24 11:38
*Neglect/Abuse Screening Last Done: 08/14/24 11:38
ED- Fall Risk Assessment Last Done: 08/14/24 12:31
*ED COVID-19 Vaccine History Last Done: 08/14/24 12:26
ED-Musculoskeletal Assessment Last Done: 08/14/24 12:31
ED- Neurological Assessment Last Done: 08/14/24 12:31
ED-Skin Assessment Last Done: 08/14/24 12:31
Discharge Date and Time
Print Language: CZECH
[2024-08-14] MEDS: TYLENOL 650 MG PO (12:23)
[2024-08-14 12:30] VITALS: BMI 22.5
[2024-08-14 13:05] LABS: % Basophils 0.3 % (0-2); % Eosinophils 0.1 % (0-6); % Immature Granulocytes 0.6 % (0-0.5); % Lymphocytes 5.1 % (20.5-51.1); % Monocytes 4.3 % (1.7-9.3); % Neutrophils 89.6 % (42.2-75.2); Absolute Immature Granulocytes 0.1 10^3/uL (0-0.05); Absolute Lymphocytes 0.5 10^3/uL (1.2-3.4); Absolute Monocytes 0.4 10^3/uL (0.1-0.6); Absolute Neutrophils 7.9 10^3/uL (1.4-6.5); Hematocrit 43.7 % (39.0-52.0); Hemoglobin 13.7 g/dL (13.0-18.0); Mean Corp Hgb Conc. 31.4 g/dL (33.0-37.0); Mean Corpuscular Hgb 30.9 pg (27.0-31.0); Mean Corpuscular Volume 98.4 fL (80.0-94.0); Nucleated Red Blood Cells % 0 % (-); Platelet Count 158 10^3/uL (130-400); Red Blood Cell Count 4.44 10^6/uL (4.70-6.10); Red Cell Dist. Width 14.8 % (11.5-14.5); White Blood Cell Count 8.8 10^3/uL (4.8-10.8)
[2024-08-14 13:23] LABS: ALT (SGPT) 19 U/L (0-50); AST (SGOT) 21 U/L (17-59); Albumin 3.4 g/dl (3.5-5.0); Alkaline Phosphatase 103 U/L (38-126); Blood Urea Nitrogen 30 mg/dl (9-20); Calcium 8.7 mg/dl (8.4-10.2); Carbon Dioxide 35 mmol/L (22-30); Chloride 99 mmol/L (98-107); Estimated Creatinine Clearance 89 ml/min; Glucose 289 mg/dl (70-99); Potassium 4.3 mmol/L (3.5-5.1); Sodium 142 mmol/L (135-145); Total Bilirubin 0.6 mg/dl (0.2-1.3); Total Protein 5.5 g/dl (6.3-8.2); eGFR > 60.00
[2024-08-14 13:42] LABS: Creatine Phosphokinase 50 U/L (55-170)
[2024-08-14] MEDS: NEURONTIN 100 MG PO (14:39)
[2024-08-14 14:46] VITALS: BP 116/59
== END 2024-08-14 14:47 | disposition home or self-care (01) ==
LOC: EMR 11:33
PROVIDERS: EMERGENCY PHYSICIAN Student in an Organized Health Care Education/Training Program; FAMILY PHYSICIAN Internal Medicine
DX: S20.212A Contusion of left front wall of thorax, initial encounter (principal); W18.2XXA Fall in (into) shower or empty bathtub, initial encounter; I10 Essential (primary) hypertension; E78.00 Pure hypercholesterolemia, unspecified; E11.9 Type 2 diabetes mellitus without complications; J44.9 Chronic obstructive pulmonary disease, unspecified; F17.200 Nicotine dependence, unspecified, uncomplicated; Z79.82 Long term (current) use of aspirin; Z85.9 Personal history of malignant neoplasm, unspecified; Z86.16 Personal history of COVID-19; Z90.49 Acquired absence of other specified parts of digestive tract
CPT/HCPCS: 99283; 71101; 80053; 82550; 85025

== ENCOUNTER 2024-12-22 04:12 | Inpatient (IN) | payer OTHER, SELFPAY ==
[2024-12-21 19:21] VITALS: BP 121/61
[2024-12-21 19:31] VITALS: BP 140/67
--- NOTE | 2024-12-21 19:51 | ED.GENMED ---
History of Present Illness
General
Chief Complaint: Breathing Problem
Source: patient
Exam Limitations: none
Time Seen by Provider: 12/21/24 19:33
Nursing documentation reviewed up to this point in time: agreed with
History of Present Illness
History of Present Illness:
84-year-old male past medical history of COPD on oxygen at home typically 2 L but does not use this continuously CHF, hypertension, hyperlipidemia,, presenting to the emergency department today with concerns of shortness of breath starting
yesterday. Also has had a cough and coughing up some sputum. Has had nausea no vomiting no specific fevers. No changes in bowel movements abdominal pain or chest pain.
Past History
Past History
ED Past Medical History: Cancer, COPD, HTN, Hypercholesterolemia, NIDDM and Other (COVID pneumonitis January 2022)
ED Past Surgical History: Cholecystectomy and Urological
Social History
Tobacco: Smoker
Alcohol: None
Personal:
Living: alone
Employment: Retired
Family History
Family History: Other (Noncontributory)
Review of Systems
Review of Systems
Allergies reviewed?: Yes
All Other Systems: ROS reviewed and negative except as documented in HPI and ROS
Phy Exam
Physical Exam
Physical Exam:
GENERAL: Alert , in no apparent distress
EYE: pupils equal and reactive
NECK: Supple, no significant adenopathy.
ENT: o/p clr, mmm.
CARDIAC: Regular rate and rhythm .
LUNGS: Diminished breath sounds diffusely, expiratory wheezing
ABDOMEN: Soft, without focal tenderness, no r/g, no cvat
NEUROLOGICAL: Alert and oriented, no focal neuro deficits
SKIN: Warm and dry, skin intact.
MUSCULOSKELETAL: No edema, well perfused.
PSYCH: Normal and appropriate interaction.
Scores
Heart Failure Risk
Heart Failure Risk Score: Not Applicable
Sepsis
Sepsis Screening
Sepsis Assessment: Sepsis Ruled Out
Sepsis Screen
Sepsis Screen: Sepsis Ruled Out
Date: 12/21/24
Time: 21:19
Course
Orders/Labs/Results
Orders:
Orders
12/21/24 19:39
Electrocardiogram (*1) Stat
Reason for Study: Other
Other Reason for Exam: pneumonia
Cardiac Monitoring- Treatment ONCE
EKG- Treatment ONCE
Dexamethasone Sod Phosphate [Decadron] 10 mg IV NOW STA
Ipratropium/Albuterol Sulfate [Duoneb] 3 ml INH R NOW STA
CR Chest - 2 Views Urgent
Comment:
Reason For Exam: sob, cough
12/21/24 19:57
COVID-19 Antigen Urgent
Source: Nasal Swab
Complete Blood Count/With Diff Urgent
Comprehensive Metabolic Panel Urgent
Lactic Acid Q4H
Comment: CANCEL 2nd LACTIC ACID IF 1st LACTIC ACID IS LESS THAN 2
NT-proBNP Urgent
Prothrombin Time Urgent
Troponin I Urgent
Influenza A+B Rapid Molecular Urgent
KRISTEN Source: Nasal Swab
Specimen Description:
12/21/24 21:04
Azithromycin 500 mg/250 ml [Zithromax Infusion] 500 mg in 250 ml IV NOW
Abnormal Lab Results
12/21/24
19:57
MCV 96.9 H fL
(80.0-94.0)
MCHC 31.1 L g/dL
(33.0-37.0)
Absolute Neuts (auto) 8.1 H 10^3/uL
(1.4-6.5)
Absolute Lymphs (auto) 0.2 L 10^3/uL
(1.2-3.4)
Neutrophils % 90.9 H %
(42.2-75.2)
Lymphocytes % 2.3 L %
(20.5-51.1)
Sodium 133 L mmol/L
(135-145)
Chloride 90 L mmol/L
(98-107)
Carbon Dioxide 37 H mmol/L
(22-30)
Creatinine 0.6 L mg/dL
(0.7-1.3)
Glucose 180 H mg/dl
(70-99)
Total Protein 6.0 L g/dl
(6.3-8.2)
12/21/24 19:57
12/21/24 19:57
Vital Signs
Initial and Last Documented VS:
Initial Vital Signs
Temp Pulse Resp BP Pulse Ox
97.8 F 102 30 121/61 85
12/21/24 19:21 12/21/24 19:21 12/21/24 19:21 12/21/24 19:21 12/21/24 19:21
Last Documented Vital Signs
Temp Pulse Resp BP Pulse Ox
97.8 F 92 21 146/57 95
12/21/24 19:21 12/21/24 20:00 12/21/24 20:00 12/21/24 20:00 12/21/24 20:36
MDM/Problems Addressed
MDM/Problems Addressed:
84-year-old male presenting to the emergency department today with concerns of shortness of breath worsening yesterday. Here patient with significant wheeze and diminished lung sounds concerning for COPD exacerbation. Patient had increased oxygen
demand with 6 L nasal cannula typically using 2 L or less at home. Started on dexamethasone as well as DuoNeb. Patient reassessed after initial treatment and had slight improvement of wheezing patient claims he feels somewhat better. Pulse ox in
the mid 90s on 6 L nasal cannula. Plan to admit for further monitoring and treatment considering significant increased oxygen need and significant COPD exacerbation. Otherwise cardiac workup without emergent findings. No obvious consolidations on
chest x-ray. Patient was started on azithromycin due to significant change in sputum production with history of COPD.
*Critical Care Note
Total Time (30-74mins, 75-104mins- exclusive of procedures): Not Applicable
ED Attending Note
-
Portions of this chart may have been created with voice recognition software.� Occasional wrong word or��sound alike� substitutions may have occurred due to the inherent limitations of voice recognition software.
Discharge Plan
Departure
Patient Disposition: Admit
Date of Disposition: 12/21/24
Time of Disposition: 21:19
Admit to: Telemetry
Admit to doctor: Mariela
Presentation/result/management discussed w/ accepting MD/DO: Hospitalist
Patient with high blood pressure during this ER visit?: No
Condition: Good
Covid-19: Not Applicable
Discharge Problem:
COPD exacerbation
Prescriptions:
No Action
atorvastatin 40 MG tablet
40 mg PO DAILY Qty: 30 0RF
diltiazem HCl 120 MG capsule,extended release 24hr
120 mg PO DAILY Qty: 30 0RF
albuterol sulfate 2.5 mg /3 mL (0.083 %) Solution For Nebulization
5 mg INHALATION R Q6HPRN PRN (Reason: wheezing)
albuterol sulfate 90 mcg/actuation Hfa Aerosol Inhaler
2 puff INHALATION R Q6HPRN PRN (Reason: wheezing)
cephalexin 250 mg Capsule
250 mg PO QID
Patient Comments:
05/13/24: filled 05/10/24, to take 1 capsule 4 times a day for 7 days
hydrocortisone 2.5 % cream with perineal applicator
1 applic MS BID
Patient Comments:
05/13/24: filled 05/06/24, to apply twice a day for 10 days
budesonide 0.5 mg/2 mL Suspension For Nebulization
0.25 mg INHALATION R BID
tamsulosin 0.4 MG capsule
0.4 mg PO BID
omeprazole 20 MG capsule,delayed release(DR/EC)
20 mg PO DAILY
aspirin 81 mg Tablet,Chewable
81 mg PO DAILY Qty: 0 0RF
prednisone 10 mg tablet
10 mg PO DIRECTED Qty: 30 0RF
Rx Instructions:
Taper: 40mg daily x 3 days, 30mg daily x 3 days, 20mg daily x 3 days, 10mg daily x 3 days
valacyclovir 1 gram tablet
1,000 mg PO Q8H Qty: 21 0RF
lidocaine 5 % adhesive patch,medicated
1 patch topical DAILY Qty: 15 0RF
Rx Instructions:
remove after 12 hrs
hydrocodone-acetaminophen 5-300 mg tablet
0.5 tab PO Q8H PRN (Reason: Pain) Qty: 14 0RF
gabapentin 100 mg capsule
100 mg PO BID Qty: 30 0RF
gabapentin 100 mg capsule
100 mg PO BID Qty: 20 0RF
Referrals:
UNKNOWN - PT DOES,NOT KNOW [Family Provider] -
Interventions
Interventions:
*Risk Screen - Suicide Last Done: 12/21/24 19:21
*General Assessment Last Done: 12/21/24 19:21
*Neglect/Abuse Screening Last Done: 12/21/24 19:21
*ED COVID-19 Vaccine History Last Done: 12/21/24 19:21
ED- Cardiac Assessment Last Done: 12/21/24 20:36
ED- Pulmonary Assessment Last Done: 12/21/24 20:36
Discharge Date and Time
Print Language: [place]
[2024-12-21 20:00] VITALS: BP 146/57
[2024-12-21] MEDS: DECADRON 10 MG IV (20:02)
[2024-12-21] MEDS: DUONEB 3 ML INH ×2 (20:03→21:27)
[2024-12-21 20:05] LABS: % Basophils 0.3 % (0-2); % Eosinophils 0.3 % (0-6); % Immature Granulocytes 0.2 % (0-0.5); % Lymphocytes 2.3 % (20.5-51.1); % Neutrophils 90.9 % (42.2-75.2); Absolute Lymphocytes 0.2 10^3/uL (1.2-3.4); Absolute Monocytes 0.5 10^3/uL (0.1-0.6); Absolute Neutrophils 8.1 10^3/uL (1.4-6.5); Hematocrit 47.6 % (39.0-52.0); Hemoglobin 14.8 g/dL (13.0-18.0); Mean Corp Hgb Conc. 31.1 g/dL (33.0-37.0); Mean Corpuscular Hgb 30.1 pg (27.0-31.0); Mean Corpuscular Volume 96.9 fL (80.0-94.0); Mean Platelet Volume 10.3 fL (7.4-10.4); Nucleated Red Blood Cells % 0 % (-); Platelet Count 149 10^3/uL (130-400); Red Blood Cell Count 4.91 10^6/uL (4.70-6.10); Red Cell Dist. Width 12.1 % (11.5-14.5); White Blood Cell Count 8.9 10^3/uL (4.8-10.8)
[2024-12-21 20:14] LABS: INR 1.06; PT 14.1 Sec (11.4-14.6)
[2024-12-21 20:24] LABS: COVID-19 Antigen Negative (Negative)
[2024-12-21 20:25] LABS: ALT (SGPT) 17 U/L (0-50); AST (SGOT) 22 U/L (17-59); Albumin 3.9 g/dl (3.5-5.0); Alkaline Phosphatase 105 U/L (38-126); Blood Urea Nitrogen 16 mg/dl (9-20); Calcium 8.8 mg/dl (8.4-10.2); Carbon Dioxide 37 mmol/L (22-30); Chloride 90 mmol/L (98-107); Glucose 180 mg/dl (70-99); Lactic Acid 0.8 mmol/L (0.7-2.0); Sodium 133 mmol/L (135-145); Total Bilirubin 1.1 mg/dl (0.2-1.3); eGFR > 60.00
[2024-12-21 20:27] LABS: NT-proBNP 486 pg/ml
[2024-12-21 20:38] VITALS: BMI 21.5
[2024-12-21 21:00] VITALS: BP 124/68
[2024-12-21] MEDS: ZITHROMAX INFUSION 250 IV (21:27)
[2024-12-21 22:00] VITALS: BP 133/76
[2024-12-21 23:00] VITALS: BP 131/74
[2024-12-22] VITALS (27 sets, daily range): BP systolic 96–158; BP diastolic 48–100; PULSE 89–107; O2SAT 91; BMI 21.1
--- NOTE | 2024-12-22 03:55 | HPS.HSE ---
Family Physician
-
Family Physician: NOT KNOW UNKNOWN - PT DOES
Chief Complaint
-
Trouble breathing
History of Present Illness
This is a 84-year-old male with past medical history significant for COPD on 2 L home O2, ongoing tobacco use, proximal atrial fibrillation, hypertension, CHF presenting to the emergency department with shortness of breath.
Patient normally uses 2 L but not continuously. He reports today that he has been having shortness of breath for approximately 2 days. He also had a cough productive of some sputum. Nausea but no vomiting. He denies fevers or chills. He denies
any abdominal pain or diarrhea. He denies having any chest pain. He denies orthopnea or PND. He denies any lower extremity swelling. He has not had any exertional chest pain. He denies any known sick contacts.
On arrival in the emergency department he was requiring 6 L of oxygen and satting at around 96%. Blood pressure was 130/70 with a pulse of 100, respiratory was 30. Troponin was negative, BNP was 400. ECG showed normal sinus rhythm at a rate of 90
with right bundle branch block which is unchanged from prior, chest x-ray is completely clear. COVID test negative, influenza negative, CBC was unremarkable electrolytes BUN/creatinine were also stable except for a bicarb of 37 which is similar to
his prior elevated bicarb of 35.
Medical History
Past Medical History
Past Medical History: Reports Arrhythmia, Cancer, CHF, COPD, GERD, HTN, Hypercholesterolemia, NIDDM and Other (Pulmonary hypertension, prostate carcinoma, heart failure preserved ejection fraction)
Past Surgical History: Reports Cholecystectomy
Social History
Tobacco: Former Smoker (70 pack years, stopped smoking 2 weeks ago)
Alcohol: None
Drug: None
Personal: Single
Living: Alone
Employment: Retired
Family History
Family History: Not pertinent
Allergies / Home Medications
Allergies reflects when Allergies were last updated in [employer].
Home Medications with original date entered in [employer]
Allergy/Medication List:
Allergies
Allergy/AdvReac Type Severity Reaction Status Date / Time
No Known Allergies Allergy Verified 08/14/24 11:39
Home Medications
atorvastatin 40 mg tablet 40 mg PO DAILY High cholesterol #30 tabs 06/04/23
diltiazem HCl 120 mg capsule,extended release 24 hr 120 mg PO DAILY Arrhythmia #30 caps 06/04/23
albuterol sulfate 2.5 mg/3 mL (0.083 %) solution for nebulization 5 mg inhalation R Q6HPRN PRN wheezing 11/07/23
albuterol sulfate 90 mcg/actuation aerosol inhaler 2 puff inhalation R Q6HPRN PRN wheezing 11/07/23
budesonide 0.5 mg/2 mL suspension for nebulization 0.5 mg inhalation R BID Lung/Breathing Issues 05/13/24
omeprazole 20 mg capsule,delayed release 20 mg PO DAILY Gastrointestinal Issue 05/13/24
tamsulosin 0.4 mg capsule 0.4 mg PO BID Urinary issue 05/13/24
aspirin 81 mg chewable tablet 81 mg PO DAILY #0 tabs 05/16/24
gabapentin 300 mg capsule 300 mg PO TID 12/21/24
Review of Systems
-
Constitutional: Reports No Symptoms
EENT: Reports No Symptoms
Respiratory: Reports Cough and Trouble Breathing
Cardiac: Reports No Symptoms
Abdomen/GI: Reports No Symptoms
: Reports No Symptoms
Musculoskeletal: Reports No Symptoms
Skin: Reports No Symptoms
Neurological: Reports No Symptoms
Endocrine: Reports No Symptoms
Hematologic/Lymphatic: Reports No Symptoms
Psych: Reports No Symptoms
Physical Exam
Vital Signs
Vital Signs
Temp Pulse Resp BP Pulse Ox
98.5 F 104 30 130/73 87
12/22/24 03:22 12/22/24 01:15 12/22/24 01:15 12/22/24 03:00 12/22/24 03:15
Physical Exam
General: Respiratory Distress and Appears Chronically Ill
HEENT: NormoCephalic, Anicteric, Moist mucous membranes, Atraumatic and Oxygen
Respiratory: Wheezes and Decreased Breath Sounds (Markedly decreased breath sounds throughout consistent with severe emphysema)
Cardiac: S1/S2 and Regular Rhythm
Breast: Deferred by me
GI: Soft, Non Tender, Normal Bowel Sounds and Distended (Mildly distended without being tympanitic.)
Rectal: Deferred by Provider
Genito-urinary: Deferred by me
Musculoskeletal: No Clubbing, No Cyanosis and No Edema
Skin: Warm
Neuro: AO x 3 and Nonfocal/grossly intact
Hematologic/Lymphatic: No Lymphadenopathy
Psych: Calm
Laboratory Results
-
12/21/24 19:57
12/21/24 19:57
Laboratory Results
PT 14.1 Sec (11.4-14.6) 12/21/24 19:57
INR 1.06 12/21/24 19:57
Lactic Acid 0.8 mmol/L (0.7-2.0) 12/21/24 19:57
Total Bilirubin 1.1 mg/dl (0.2-1.3) 12/21/24 19:57
AST 22 U/L (17-59) 12/21/24 19:57
ALT 17 U/L (0-50) 12/21/24 19:57
Alkaline Phosphatase 105 U/L (38-126) 12/21/24 19:57
Troponin I 0.020 ng/ml 12/21/24 19:57
Data Reviewed
-
Diagnostic Radiology: Image Personally Visualized and interpreted and Report Reviewed by me
Medical Tests (Nuc Med, Echo, EKG etc): Image Personally Visualized and interpreted
Lab Data: Labs Reviewed by me
Old Records: Reviewed
Impression/Plan
-
IMPRESSION:
84-year-old with history of COPD on intermittent 2 L at home comes into the emergency department with 2 days of cough and worsening shortness of breath requiring constant use of her oxygen and found to be hypoxic. Is chest x-ray is clear COVID test
and influenza are negative and ECG is nonischemic with a normal troponin and BNP is negative for CHF. He does not have any volume overload on exam. He has very marked increased work of breathing with a respiratory rate in the high 20s. He has a
very low amount of air movement with ongoing wheezing. He has acute on chronic hypoxic and hypercapnic respiratory distress secondary to COPD exacerbation. Chest x-ray is clear. Denies tobacco use.
PLAN:
COPD Exacerbation -acute on chronic hypoxic and hypercarbic respiratory failure, moderate distress at this time with hypercapnia, satting 96% on 6 L. Still has increased work of breathing after initial treatment in the ED.
- admit to imu
- abg x 1 now, if acidotic will start bipap 14/
- iv azithromycin
- solumedrol 40mg q 6
- duonebs q 6 hour standing
- duonebs q 3 hours prn
- cough suppression and antiemetics prn
- no indication for fluids or laasix at this time.
- pulmonary consultation
AFIB - rate is sinus and well controlled, no currenly on ac
- continue dilitazem
- aspirin 81 daily
- continue statin
BPH
- continue tamsulosin
DVT PPX - lovenox sq
Code status - Full code
[2024-12-22 04:40] LABS: HCO3 38.2 mmol/L (21-28); O2 Saturation % 98.4 % (94-98); PCO2 66 mmHg (35-48); PO2 79 mmHg (83-108); pH 7.37 (7.35-7.45)
[2024-12-22 04:49] LABS: O2 Therapy 40%
[2024-12-22] MEDS: ROBITUSSIN 200 MG PO ×2 (05:47→12:17)
[2024-12-22] MEDS: SOLU-MEDROL PF 40 MG IV (05:49)
--- NOTE | 2024-12-22 06:15 | PTCARENOTE ---
On assessment pt AAOx3, angry at times, oriented to room, call rose in reach, ST on the monitor, denies chest pain at this time, 6L NC 95%, c/o a 'little' SOB, productive frequent cough, multiple incontinent BMs, uses urinal, b/l buttocks skin tears
foam applied, bed alarm on
--- NOTE | 2024-12-22 06:19 | PTCARENOTE ---
pt C/o L arm pain due to recent shingles
[2024-12-22 06:40] LABS: Glucose - Point of Care 141 mg/dl (70-99)
[2024-12-22] MEDS: DUONEB 3 ML INH ×4 (07:34→20:05)
--- NOTE | 2024-12-22 07:40 | W.PN.HOSP.TC ---
Today's Communication/Plan
-
see A/P
Assessment / Plan
Assessment / Plan
84-year-old male with past medical history significant for COPD on 2 L home O2, ongoing tobacco use, proximal atrial fibrillation, hypertension, CHF; presented to the emergency department with shortness of breath.
Patient normally uses 2 L but not continuously. He reports that he has been having shortness of breath for approximately 2 days. He also had a cough productive of some sputum. Nausea but no vomiting.
He denies having any chest pain. He denies orthopnea or PND. He denies any lower extremity swelling. He has not had any exertional chest pain. He denies any known sick contacts.
On arrival in the emergency department he was requiring 6 L of oxygen and satting at around 96%. Blood pressure was 130/70 with a pulse of 100, respiratory was 30. Troponin was negative, BNP was 400. ECG showed normal sinus rhythm at a rate of 90
with right bundle branch block which is unchanged from prior, chest x-ray is completely clear. COVID test negative, influenza negative, CBC was unremarkable. bicarb of 37 which is similar to his prior elevated bicarb of 35.
A/P:
# COPD Exacerbation
# acute on chronic hypoxic and hypercapnic respiratory failure,
6L NC O2 support from baseline 2L NC
iv azithromycin
solumedrol 40mg q 6
duonebs Q6 hour standing and Q3H PRN
cough suppression and antiemetics prn
no indication for fluids or lasix at this time.
pulmonary consultation
# AFIB - rate is sinus and well controlled, no currently on ac
continue home dilitazem
aspirin 81 daily
continue statin
# BPH
continue tamsulosin
DVT PPX - lovenox sq
Code status - Full code
Anticipated Discharge: > 48 hours
Subjective/Interval History
-
Date of Service: December 22, 2024
Objective Data
-
Labs:
Laboratory Results
12/21/24 12/22/24 12/22/24
19:57 04:33 06:35
WBC 8.9
Hgb 14.8
Hct 47.6
Plt Count 149
PT 14.1
INR 1.06
HCO3 38.2 H
Sodium 133 L Pending
Potassium 4.0 Pending
Chloride 90 L Pending
Carbon Dioxide 37 H Pending
BUN 16 Pending
Creatinine 0.6 L Pending
Glucose 180 H Pending
Calcium 8.8 Pending
Total Bilirubin 1.1
AST 22
ALT 17
Alkaline Phosphatase 105
Vital Signs:
Vital Signs
Temp Pulse Resp BP Pulse Ox
36.9 C 108 20 147/84 95
12/22/24 03:22 12/22/24 05:30 12/22/24 05:30 12/22/24 05:30 12/22/24 06:23
I&O
12/21/24 12/22/24 12/23/24
06:59 06:59 06:59
Intake Total
Output Total 220 / 220 125 / 125
Balance -190 / -190 -125 / -125
Review of Systems
-
Respiratory: Reports Trouble Breathing (improving )
Physical Exam
-
General: Well Developed, Comfortable, Respiratory Distress (mild) and Conversant
HEENT: Oxygen (6L NC)
Respiratory: Wheezes (Improved ) and Non Labored Respirations; Negative Accessory Resp Muscle Use
Cardiac: Regular Rhythm and S1/S2
GI: Soft, Nontender, Nondistended and Normal Bowel Sounds
Skin: Warm and Dry
Neuro: Awake and Alert
Psych: Calm and Intact Judgement/Insight
Data Reviewed
-
Labs: Labs Reviewed by me
[2024-12-22] MEDS: FLOMAX 0.4 MG PO ×2 (08:13→21:50)
[2024-12-22] MEDS: LOW STRENGTH ASPIRIN 81 MG PO (08:13)
[2024-12-22] MEDS: MUCINEX 600 MG PO ×2 (08:13→21:50)
[2024-12-22] MEDS: CARDIZEM CD 120 MG PO (08:13)
[2024-12-22] MEDS: LIPITOR 40 MG PO (08:13)
[2024-12-22] MEDS: NEURONTIN 300 MG PO ×3 (08:13→21:50)
[2024-12-22] MEDS: PROTONIX 40 MG PO (08:13)
--- NOTE | 2024-12-22 08:48 | CON.PUL ---
Addendum entered and electronically signed by Mike Harris MD 12/22/24 16:01:
History of present illness:
This is a 84-year-old male with past medical history significant for COPD on 2 L home O2, ongoing tobacco use, paroxysmal atrial fibrillation, hypertension, CHF who presented to the emergency room with shortness of breath.
Patient normally uses 2 L but not continuously. Patient reports that about 2 days ago he started having increased cough with increased expectoration however phlegm color has not changed. No hemoptysis, no fever no chills. Patient does not report
any sick contacts. No reported runny nose, sore throat. Patient reports mild nausea but no vomiting. He denies fevers or chills. He denies any abdominal pain or diarrhea. He denies having any chest pain. He denies orthopnea or PND. He denies
any lower extremity swelling. He has not had any exertional chest pain.
Patient required 6 L of supplemental oxygen at admission and in view of respiratory distress was scheduled to be started on PAP therapy. However patient gradually improved and did not require noninvasive positive pressure ventilation.. In the
emergency room troponin was negative, BNP was 400. ECG showed normal sinus rhythm at a rate of 90 with right bundle branch block which is unchanged from prior, chest x-ray is completely clear. COVID test negative, influenza negative, CBC was
unremarkable electrolytes BUN/creatinine were also stable except for a bicarb of 37 which is similar to his prior elevated bicarb of 35. Chest x-ray without evidence of active pneumonia
Patient was brought to ICU for possible need for positive airway pressure therapy. Pulmonary consultation was requested for further recommendations..
Original Note:
Consultation
Consultation Request
Date/Time Consultation Requested: )12/22/2024
Date/Time Consultation Performed: 12/22/2024 930 AM
Reason for Consultation: COPD exacerbation
Medical History
-
Chief Complaint: Shortness of breath
Social History
Tobacco: Smoker (70 pack year smoking history )
Alcohol: None
Drug: None
Family History
Family History: Reviewed & Not Pertinent
Allergies / Home Medications
Allergies
Allergy/AdvReac Type Severity Reaction Status Date / Time
No Known Allergies Allergy Verified 08/14/24 11:39
Home Medications
�Medication �Instructions �Recorded �Confirmed �Last Taken �Type
atorvastatin 40 mg tablet 40 mg PO DAILY High cholesterol 06/04/23 12/21/24 11/06/23 Rx
#30 tabs
diltiazem HCl 120 mg 120 mg PO DAILY Arrhythmia #30 caps 06/04/23 12/21/24 11/06/23 Rx
capsule,extended release 24 hr
albuterol sulfate 2.5 mg/3 mL 5 mg inhalation R Q6HPRN PRN 11/07/23 12/21/24 11/06/23 History
(0.083 %) solution for nebulization wheezing
albuterol sulfate 90 mcg/actuation 2 puff inhalation R Q6HPRN PRN 11/07/23 12/21/24 11/06/23 History
aerosol inhaler wheezing
budesonide 0.5 mg/2 mL suspension 0.5 mg inhalation R BID 05/13/24 12/21/24 Unknown History
for nebulization Lung/Breathing Issues
omeprazole 20 mg capsule,delayed 20 mg PO DAILY Gastrointestinal 05/13/24 12/21/24 Unknown History
release Issue
tamsulosin 0.4 mg capsule 0.4 mg PO BID Urinary issue 05/13/24 12/21/24 Unknown History
aspirin 81 mg chewable tablet 81 mg PO DAILY #0 tabs 05/16/24 12/21/24 Unknown Rx
gabapentin 300 mg capsule 300 mg PO TID 12/21/24 12/21/24 Unknown History
Review of Systems
Vitals / Labs / Diagnostic Testing
Vital Signs
Temp Pulse Resp BP Pulse Ox
98.4 F 96 20 147/84 93
12/22/24 08:13 12/22/24 07:39 12/22/24 07:39 12/22/24 05:30 12/22/24 08:28
Lab Data
12/21/24 19:57
Laboratory Results
12/21/24 12/22/24
19:57 04:33
PT 14.1
INR 1.06
pH 7.37
pCO2 66 H
pO2 79 L
HCO3 38.2 H
O2 Delivery Level 40%
Microbiology
12/21/24 19:57 Nasal Swab Influenza Types A & B ([facility]) - Final
Negative for Influenza A & B, NAAT
Negative results must be combined with clinical observations
and patient history.
Nucleic Acid Amplification test (NAAT)performed on the
[employer] platform.
Diagnostic Testing:
Physical Exam
-
HEENT: Normocephalic
Cardiovascular: Regular Rhythm and Murmur (No)
Respiratory: Clear, Wheeze (Mild expiratory wheezing ), Rales (None) and Non-Labored Respirations
GI: Soft
Neurology: Awake
Skin: Warm
General: Respiratory Distress and Comfortable
Assessment
-
#1. Acute on chronic hypoxic and hypercapnic respiratory failure with COPD exacerbation.
-Patient has known history of severe COPD with chronic hypercapnia with baseline pCO2 around 60 along with chronically elevated bicarb level on BMP. Also chronically on 2 L oxygen at baseline, currently requiring 6 L.
-Continue DuoNebs 4 times daily
-Add Pulmicort twice daily, continue Mucinex twice daily
-Lower Solu-Medrol to 40 mg once daily
-Azithromycin for 3 days. Chest x-ray reviewed and not suggestive of any acute pneumonia. COVID testing is negative and patient is otherwise afebrile with normal WBC count.
-Incentive spirometry
-Activity as tolerated
-Recommend resuming follow-up as outpatient with pulmonary clinic
#2. Severe COPD at baseline, home oxygen dependent
-Davis 04/01/23: FVC 1.02/28%, FEV1 0.26/10%, ratio 26%, significant BD response in FEV1 (27%). Post BD results FVC 0.99/27%, FEV1 0.33/13%, ratio 34%. Very severe obstruction and suggestive of severe restrictive pattern.
-Echocardiogram in January 2022, LVEF 65 to 70%, normal right ventricle, no evidence of pulmonary hypertension
-Chest x-ray suggestive of hyperinflation without any acute infiltrate
-Reportedly patient taking only albuterol inhaler and albuterol/ipratropium nebulizer as needed at home, ideally needs to be on triple therapy postdischarge
-More than 50-jixl-fubo smoking history, last cigarette was 3 days ago per patient
-Outpatient follow-up with pulmonary clinic in 2 weeks
[2024-12-22 09:04] LABS: Blood Urea Nitrogen 17 mg/dl (9-20); Calcium 8.4 mg/dl (8.4-10.2); Carbon Dioxide 37 mmol/L (22-30); Chloride 94 mmol/L (98-107); Estimated Creatinine Clearance 82 ml/min; Glucose 178 mg/dl (70-99); Potassium 4.5 mmol/L (3.5-5.1); Sodium 133 mmol/L (135-145); eGFR > 60.00
--- NOTE | 2024-12-22 12:01 | CM ---
CM following re: discharge planning.
Reviewed pt's chart, met with pt.
Pt is an 84 year old male, admitted with primary dx of COPD exacerbation. Per Rounds meeting, pt requires 6L NC of O2, on 2.5 L NC at baseline at home, continue supportive care.
Pt reports he has been living at [facility] for the past 6 years, has supportive son Oscar [phone]. Pt reports he has a walker, w/c, nebulizer machine, home Oxygen and he is on 2.5 L NC of supplemental O2 at
baseline. Pt reports he is enrolled in [facility] waiver community based services, receives 12 hours of caregiver services daily provided by [facility]. Pt reports he had [facility] in the past, did not like a moment when he had shingles and was 'forcing' to
do therapy, and pt requested [facility]. A referral to [facility] made. Pt expressed his desire to return back home at discharge with [facility], resumptions of caregiver services and pt stated his son Oscar usually transports home.
PCP: pt stated he just changed his family Dr and has an appointment in January. pt does not remember the name of PCP.
Pharmacy: [facility].
D/c plan: return back home with [facility], resumptions of [facility] caregiver services. Pt stated his son Oscar usually transports home.
CM will follow with discharge plan updates as hospitalization progresses
--- NOTE | 2024-12-22 13:29 | PTCARENOTE ---
Assumed care at 0700. VSS, NSR/ST on telemetry, HR 90-100s. Able to be weaned to 4L, SaO2 >90%. Able to ambulate w/ RW and assist x1 to bathroom, and tolerated sitting in chair for ~2 hours. Desats to mid 80s w/ activity, +LARA, but able to recover
within a couple minutes. Order noted to transfer to telemetry level of care. Awaiting bed assignment.
--- NOTE | 2024-12-22 13:44 | VNURNOTE ---
Home Health Liaison met with patient at bedside to discuss [facility] nurse/therapy, visits, schedule and homebound status. Patient is agreeable and understands that visits at home will be 2-3 x per week to assess and teach medical management. He had [facility]
in the past and 'did not have a good experience.' He did not elaborate but confirmed he is willing to have [facility] after DC. Patient is aware that [facility] will contact them for start of care in 1-2 days after discharge from . Current home 02 with
[employer]. Currently on 4L 02 at . Will watch if increased 02 needs. [facility] referral completed in [facility].
[2024-12-22] MEDS: DELTASONE 30 MG PO (16:53)
[2024-12-22] MEDS: LOVENOX 40 MG SC (16:54)
--- NOTE | 2024-12-22 17:37 | TRANSFER ---
Received patient from ICU via stretcher. Pt AAOX3. ST on harp maker. Call rose within reach. Plan of care ongoing.
[2024-12-22] MEDS: PULMICORT 0.5 MG INH (20:04)
[2024-12-22] MEDS: ZITHROMAX INFUSION 250 IV (21:49)
[2024-12-23] VITALS (7 sets, daily range): BP systolic 110–131; BP diastolic 61–69; PULSE 2–96; BMI 20.7
[2024-12-23 06:50] LABS: Blood Urea Nitrogen 40 mg/dl (9-20); Calcium 8.1 mg/dl (8.4-10.2); Carbon Dioxide 35 mmol/L (22-30); Chloride 89 mmol/L (98-107); Estimated Creatinine Clearance 55 ml/min; Glucose 143 mg/dl (70-99); Potassium 4.9 mmol/L (3.5-5.1); Sodium 132 mmol/L (135-145); eGFR > 60.00
[2024-12-23] MEDS: DUONEB 3 ML INH ×4 (07:42→19:11)
[2024-12-23] MEDS: PULMICORT 0.5 MG INH ×2 (07:43→19:11)
[2024-12-23] MEDS: CARDIZEM CD 120 MG PO (08:46)
[2024-12-23] MEDS: FLOMAX 0.4 MG PO ×2 (08:47→19:48)
[2024-12-23] MEDS: DELTASONE 30 MG PO (08:47)
[2024-12-23] MEDS: LOW STRENGTH ASPIRIN 81 MG PO (08:47)
[2024-12-23] MEDS: LIPITOR 40 MG PO (08:47)
[2024-12-23] MEDS: PROTONIX 40 MG PO (08:47)
[2024-12-23] MEDS: MUCINEX 600 MG PO ×2 (08:47→19:48)
[2024-12-23] MEDS: NEURONTIN 300 MG PO ×3 (08:47→21:43)
--- NOTE | 2024-12-23 09:05 | W.PN.HOSP.TC ---
Addendum entered and electronically signed by Abril Silverio MD 12/23/24 15:16:
# Chronic HFpEF
# Hyponatremia
Original Note:
Today's Communication/Plan
-
see A/P
Assessment / Plan
Assessment / Plan
84-year-old male with past medical history significant for COPD on 2 L home O2, ongoing tobacco use, proximal atrial fibrillation, hypertension, CHF; presented to the emergency department with shortness of breath.
Patient normally uses 2 L but not continuously. He reports that he has been having shortness of breath for approximately 2 days. He also had a cough productive of some sputum. Nausea but no vomiting.
He denies having any chest pain. He denies orthopnea or PND. He denies any lower extremity swelling. He has not had any exertional chest pain. He denies any known sick contacts.
On arrival in the emergency department he was requiring 6 L of oxygen and satting at around 96%. Blood pressure was 130/70 with a pulse of 100, respiratory was 30. Troponin was negative, BNP was 400. ECG showed normal sinus rhythm at a rate of 90
with right bundle branch block which is unchanged from prior, chest x-ray is completely clear. COVID test negative, influenza negative, CBC was unremarkable. bicarb of 37 which is similar to his prior elevated bicarb of 35.
A/P:
# COPD Exacerbation
# acute on chronic hypoxic and hypercapnic respiratory failure,
O2 weaned from 6L to 4L NC, baseline 2L NC
iv azithromycin
IV solumedrol to PO prednisone, adjust dose to 50 mg for chest tightness
duonebs Q6 hour standing and Q3H PRN
cough suppression and antiemetics prn
no indication for fluids or lasix at this time.
pulmonary consulted
# AFIB - rate is sinus and well controlled, no currently on ac
continue home diltiazem
aspirin 81 daily
continue statin
# BPH
continue tamsulosin
DVT PPX - Lovenox sq
Code status - Full code
Dispo: PT OT cleared for HH
updated son on the phone
Diet liberalized to regular per family request
Anticipated Discharge: 24 - 48 hours
Subjective/Interval History
-
Date of Service: December 23, 2024
Objective Data
-
Labs:
Laboratory Results
12/23/24
05:24
Sodium 132 L
Potassium 4.9
Chloride 89 L
Carbon Dioxide 35 H
BUN 40 H
Creatinine 0.9
Glucose 143 H
Calcium 8.1 L
Vital Signs:
Vital Signs
Temp Pulse Resp BP Pulse Ox
36.6 C 92 20 131/69 92
12/23/24 07:10 12/23/24 08:46 12/23/24 07:10 12/23/24 08:46 12/23/24 07:10
I&O
12/22/24 12/23/24 12/24/24
06:59 06:59 06:59
Intake Total 30 / 30 960 / 960
Output Total 220 / 220 375 / 375
Balance -190 / -190 585 / 585
Review of Systems
-
All other systems: Reviewed and negative
Physical Exam
-
General: Well Developed, Comfortable, Respiratory Distress (mild and chronic) and Conversant
HEENT: Oxygen (4L NC)
Respiratory: Wheezes (Improved ), Non Labored Respirations and Other (chest tightness); Negative Accessory Resp Muscle Use
Cardiac: Regular Rhythm and S1/S2
GI: Soft, Nontender, Nondistended and Normal Bowel Sounds
Skin: Warm and Dry
Neuro: Awake and Alert
Psych: Calm and Intact Judgement/Insight
Data Reviewed
-
Labs: Labs Reviewed by me
[2024-12-23] MEDS: DELTASONE 20 MG PO (09:53)
--- NOTE | 2024-12-23 13:11 | PN.CDI ---
CDI
- -
CDI:
Physician Documentation Request
Admit Date: 12/22/24 04:12
Dear Doctor Nusrat,
Clinical Indicators:
Patient admitted with acute COPD exacerbation.
PMH includes CHF
Last Echocardiogram (01/24/2022):'LV ejection fraction is 65-70%'
3/3 H & P, '...BNP is negative for CHF'
Please provide further specificity regarding the most likely type and acuity of CHF you are evaluating, treating or monitoring.
Chronic HFpEF
Other, please specify
Use of terms such as suspected, likely, concern for, or probable (associated with a specific diagnosis that is being evaluated, monitored, or treated as if it exists) are acceptable and can be coded in the inpatient setting, when documented at the
time of discharge.
Thank you,
Jennifer Hopkins RN BSN
CDI Specialist
available via tiger text
Please use your independent medical judgment in providing your response.
--- NOTE | 2024-12-23 13:19 | PN.CDI ---
CDI
- -
CDI:
Physician Documentation Request
Admit Date: 12/22/24 04:12
Dear Doctor Nusrat,
Clinical Indicators:
Patient admitted with acute COPD exacerbation.
Sodium trend:
12/21/24 12/22/24 12/23/24
19:57 08:37 05:24
Sodium 133 L 133 L 132 L
Based on the above, could you clarify in the progress notes, the appropriate diagnosis, if significant, that supports the above abnormalities and additional evaluation, monitoring and/or treatment rendered:
Hyponatremia
Abnormal lab values, clinically insignificant
Other, please specify
Use of terms such as suspected, likely, concern for, or probable (associated with a specific diagnosis that is being evaluated, monitored, or treated as if it exists) are acceptable and can be coded in the inpatient setting, when documented at the
time of discharge.
Thank you,
Jennifer Hopkins RN BSN
CDI Specialist
available via tiger text
Please use your independent medical judgment in providing your response.
[2024-12-23] MEDS: LOVENOX 40 MG SC (17:36)
[2024-12-23] MEDS: ZITHROMAX INFUSION 250 IV (19:48)
[2024-12-24] VITALS (17 sets, daily range): BP systolic 90–146; BP diastolic 51–77; PULSE 2–109; BMI 21.0
[2024-12-24 07:10] LABS: Blood Urea Nitrogen 43 mg/dl (9-20); Calcium 8.2 mg/dl (8.4-10.2); Chloride 91 mmol/L (98-107); Estimated Creatinine Clearance 55 ml/min; Glucose 79 mg/dl (70-99); Magnesium 2.3 mg/dl (1.6-2.3); Potassium 4.9 mmol/L (3.5-5.1); Sodium 133 mmol/L (135-145); eGFR > 60.00
[2024-12-24] MEDS: DUONEB 3 ML INH ×4 (07:18→19:17)
[2024-12-24] MEDS: PULMICORT 0.5 MG INH ×2 (07:19→19:17)
[2024-12-24 07:21] LABS: Carbon Dioxide 32 mmol/L (22-30)
[2024-12-24] MEDS: NEURONTIN 300 MG PO ×3 (09:18→20:32)
[2024-12-24] MEDS: PROTONIX 40 MG PO (09:18)
[2024-12-24] MEDS: MUCINEX 600 MG PO ×2 (09:18→20:32)
[2024-12-24] MEDS: FLOMAX 0.4 MG PO ×2 (09:18→20:32)
[2024-12-24] MEDS: LOW STRENGTH ASPIRIN 81 MG PO (09:18)
[2024-12-24] MEDS: DELTASONE 50 MG PO (09:18)
[2024-12-24] MEDS: LIPITOR 40 MG PO (09:19)
[2024-12-24] MEDS: FLUSH (NSS) 1 FLUSH IV (09:19)
[2024-12-24] MEDS: CARDIZEM CD 120 MG PO (09:19)
--- NOTE | 2024-12-24 09:40 | PTCARENOTE ---
patient told nurse he was struggling to breath- pox 85-89 on 5l nasal cannula- lung sounds decreased with expiratory wheezing. medical laboratory technologist called to evaluate patient- had nebulizer 2 hours prior- Dr Silverio at bedside- made aware of above and
patient was placed on bipap with 6l oxygen- POX up to 93% - patient still saying he doesn't feel good. Patient to be moved to IMU. awaiting bed assignment.plan of care on going
--- NOTE | 2024-12-24 09:42 | W.PN.HOSP.TC ---
Today's Communication/Plan
-
see A/P
Assessment / Plan
Assessment / Plan
84-year-old male with past medical history significant for COPD on 2 L home O2, ongoing tobacco use, proximal atrial fibrillation, hypertension, CHF; presented to the emergency department with shortness of breath.
Patient normally uses 2L but not continuously. He reports that he has been having shortness of breath for approximately 2 days. He also had a cough productive of some sputum. Nausea but no vomiting.
He denies having any chest pain. He denies orthopnea or PND. He denies any lower extremity swelling. He has not had any exertional chest pain. He denies any known sick contacts.
On arrival in the emergency department he was requiring 6 L of oxygen and satting at around 96%. Blood pressure was 130/70 with a pulse of 100, respiratory was 30. Troponin was negative, BNP was 400. ECG showed normal sinus rhythm at a rate of 90
with right bundle branch block which is unchanged from prior, chest x-ray is completely clear. COVID test negative, influenza negative, CBC was unremarkable. bicarb of 37 which is similar to his prior elevated bicarb of 35.
A/P:
# COPD Exacerbation
# acute on chronic hypoxic and hypercapnic respiratory failure,
O2 was weaned from 6L to 5L NC, baseline 2L NC
Placed back on BIPAP 3/6 for dyspnea
Cont IV azithromycin
IV solumedrol was changed to PO prednisone, further change to IV Decadron 6 mg BID for chest tightness
duonebs Q6 hour standing and Q3H PRN
Check CT chest for PE protocol
Check procal and expand Abx if procal high
cough suppression and antiemetics prn
pulmonary on board
# AFIB - rate is sinus and well controlled, no currently on ac
continue home diltiazem
aspirin 81 daily
continue statin
# BPH
continue tamsulosin
DVT PPX - Lovenox sq
Code status - Full code
Dispo: PT OT cleared for HH
updated son on the phone.
CC mx for acute hypoxia on NC needing replacement back to BIPAP. Upgrad back to IMU.
total time 40 min
Anticipated Discharge: > 48 hours
Subjective/Interval History
-
Date of Service: December 24, 2024
Objective Data
-
Labs:
Laboratory Results
12/24/24
05:58
Sodium 133 L
Potassium 4.9
Chloride 91 L
Carbon Dioxide 32 H
BUN 43 H
Creatinine 0.9
Glucose 79
Calcium 8.2 L
Vital Signs:
Vital Signs
Temp Pulse Resp BP Pulse Ox
36.7 C 87 20 123/77 98
12/24/24 08:17 12/24/24 08:17 12/24/24 08:17 12/24/24 08:17 12/24/24 08:17
I&O
12/23/24 12/24/24 12/25/24
06:59 06:59 06:59
Intake Total 960 / 960 600 / 600
Output Total 375 / 375
Balance 585 / 585 600 / 600
Review of Systems
-
Respiratory: Reports Trouble Breathing
Physical Exam
-
General: Well Developed, Comfortable, Respiratory Distress and Conversant
HEENT: Oxygen (4L NC -> BIPAP for hypoxia)
Respiratory: Wheezes, Non Labored Respirations and Other (chest tightness); Negative Accessory Resp Muscle Use
Cardiac: Regular Rhythm and S1/S2
GI: Soft, Nontender, Nondistended and Normal Bowel Sounds
Skin: Warm and Dry
Neuro: Awake and Alert
Psych: Calm and Intact Judgement/Insight
Data Reviewed
-
Labs: Labs Reviewed by me
[2024-12-24] MEDS: DECADRON 6 MG IV ×2 (09:53→22:06)
[2024-12-24] MEDS: FLUSH (NSS) 2 FLUSH IV (09:54)
--- NOTE | 2024-12-24 10:05 | CM ---
Transferred to IMU for increased oxygen needs.
Pt on Bipap now.
Pt current with [facility]
Pt has home oxygen .
PLAN Will depend on hospital course of care .
[2024-12-24 10:17] LABS: % Basophils 0.2 % (0-2); % Immature Granulocytes 0.2 % (0-0.5); % Lymphocytes 7.6 % (20.5-51.1); % Monocytes 16.7 % (1.7-9.3); % Neutrophils 75.3 % (42.2-75.2); Absolute Lymphocytes 0.3 10^3/uL (1.2-3.4); Absolute Monocytes 0.7 10^3/uL (0.1-0.6); Absolute Neutrophils 3.2 10^3/uL (1.4-6.5); Hematocrit 44.9 % (39.0-52.0); Hemoglobin 13.8 g/dL (13.0-18.0); Mean Corp Hgb Conc. 30.7 g/dL (33.0-37.0); Mean Corpuscular Hgb 30.5 pg (27.0-31.0); Mean Corpuscular Volume 99.1 fL (80.0-94.0); Mean Platelet Volume 10.4 fL (7.4-10.4); Nucleated Red Blood Cells % 0 % (-); Platelet Count 115 10^3/uL (130-400); Red Blood Cell Count 4.53 10^6/uL (4.70-6.10); Red Cell Dist. Width 11.9 % (11.5-14.5); White Blood Cell Count 4.2 10^3/uL (4.8-10.8)
--- NOTE | 2024-12-24 10:37 | TRANSFER ---
patient transferred to IMU via bed, this nurse and tele monitor on 6l oxygen, pox 89-91 during transfer. patient reporting feeling slightly better after being on bipap.
--- NOTE | 2024-12-24 10:39 | PTCARENOTE ---
Addendum entered by Stefan Cummins RN 12/24/24 17:55:
Throughout rest of shift patient requiring anywhere from 7-15L midflow to maintain sats >92%.
Addendum entered by Stefan Cummins RN 12/24/24 12:04:
Patient tolerated CT scan. Since returning to room patient has now been weaned to 6L midflow. Sats currently 93%. VSS. Will closely monitor.
Original Note:
Received patient by bed from . Patient 84% on 6L NC. Transferred to 15L midflow, sats 95%. Patient reports no longer feeling SOB. LARA. B/L expiratory wheezes. VSS. To go to CT shortly. Will closely monitor.
[2024-12-24 10:40] LABS: Procalcitonin < 0.05 ng/ml (0.0-0.25)
[2024-12-24] MEDS: NSS 250 IV (11:57)
--- NOTE | 2024-12-24 16:14 | PN.CDI ---
CDI
- -
CDI:
Physician Documentation Request
Admit Date: 12/22/24 04:12
Dear Doctor Nusrat,
Clinical Indicators:
Patient admitted with acute COPD exacerbation.
WBC, RBC, Plts:
12/24/24
09:49
WBC 4.2 L
RBC 4.53 L
Plt Count 115 L D
Based on the above, could you clarify in the progress notes, the appropriate diagnosis, if significant, that supports the above abnormalities and additional evaluation, monitoring and/or treatment rendered:
Pancytopenia
Abnormal lab values,clinically insignificant
Other
Use of terms such as suspected, likely, concern for, or probable (associated with a specific diagnosis that is being evaluated, monitored, or treated as if it exists) are acceptable and can be coded in the inpatient setting, when documented at the
time of discharge.
Thank you,
Jennifer Hopkins RN BSN
CDI Specialist
available via tiger text
Please use your independent medical judgment in providing your response.
[2024-12-24] MEDS: LOVENOX 40 MG SC (17:46)
[2024-12-24] MEDS: ZITHROMAX INFUSION 250 IV (20:33)
[2024-12-25] VITALS (16 sets, daily range): BP systolic 107–127; BP diastolic 55–83; PULSE 2–88; O2SAT 91–95; BMI 20.8; BMI 21.1
[2024-12-25 05:38] LABS: % Lymphocytes 9.4 % (20.5-51.1); % Monocytes 10.2 % (1.7-9.3); % Neutrophils 80.4 % (42.2-75.2); Absolute Lymphocytes 0.3 10^3/uL (1.2-3.4); Absolute Monocytes 0.3 10^3/uL (0.1-0.6); Absolute Neutrophils 2.1 10^3/uL (1.4-6.5); Hematocrit 42.6 % (39.0-52.0); Hemoglobin 13.1 g/dL (13.0-18.0); Mean Corp Hgb Conc. 30.8 g/dL (33.0-37.0); Mean Corpuscular Hgb 30.3 pg (27.0-31.0); Mean Corpuscular Volume 98.6 fL (80.0-94.0); Mean Platelet Volume 10.3 fL (7.4-10.4); Nucleated Red Blood Cells % 0 % (-); Platelet Count 102 10^3/uL (130-400); Red Blood Cell Count 4.32 10^6/uL (4.70-6.10); Red Cell Dist. Width 11.6 % (11.5-14.5); White Blood Cell Count 2.7 10^3/uL (4.8-10.8)
[2024-12-25 05:54] LABS: Blood Urea Nitrogen 34 mg/dl (9-20); Calcium 8.1 mg/dl (8.4-10.2); Chloride 91 mmol/L (98-107); Estimated Creatinine Clearance 62 ml/min; Glucose 201 mg/dl (70-99); Potassium 5.1 mmol/L (3.5-5.1); Sodium 133 mmol/L (135-145); eGFR > 60.00
[2024-12-25 06:03] LABS: Carbon Dioxide 40 mmol/L (22-30)
--- NOTE | 2024-12-25 06:24 | PTCARENOTE ---
Caring for pt overnight. aaox3, but forgetful. Pt anywhere from 7L-10LMF. Pt desating to 85% on 10LMF and once fell asleep was dropping tothe 70's. Reached out to RT, bipap placed all night, removed this am. Even when desating pt seems comfortable.
Now 7LMF 95%. Denies pain. No other issues. will monitor.
[2024-12-25] MEDS: LOW STRENGTH ASPIRIN 81 MG PO (07:40)
[2024-12-25] MEDS: MUCINEX 600 MG PO ×2 (07:40→20:19)
[2024-12-25] MEDS: NEURONTIN 300 MG PO ×3 (07:40→21:26)
[2024-12-25] MEDS: PROTONIX 40 MG PO (07:41)
[2024-12-25] MEDS: LIPITOR 40 MG PO (07:41)
[2024-12-25] MEDS: CARDIZEM CD 120 MG PO (07:41)
[2024-12-25] MEDS: FLOMAX 0.4 MG PO ×2 (07:41→20:19)
[2024-12-25] MEDS: PULMICORT 0.5 MG INH ×2 (07:43→20:10)
[2024-12-25] MEDS: DUONEB 3 ML INH ×4 (07:43→20:10)
--- NOTE | 2024-12-25 08:19 | W.PN.HOSP.TC ---
Addendum entered and electronically signed by Abril Silverio MD 12/25/24 12:54:
# Bicytopenia with leukopenia and thrombocytopenia
Continue to monitor counts
Original Note:
Today's Communication/Plan
-
see A/P
Assessment / Plan
Assessment / Plan
84-year-old male with past medical history significant for COPD on 2 L home O2, ongoing tobacco use, proximal atrial fibrillation, hypertension, CHF; presented to the emergency department with shortness of breath.
Patient normally uses 2L but not continuously. He reports that he has been having shortness of breath for approximately 2 days. He also had a cough productive of some sputum. Nausea but no vomiting.
He denies having any chest pain. He denies orthopnea or PND. He denies any lower extremity swelling. He has not had any exertional chest pain. He denies any known sick contacts.
On arrival in the emergency department he was requiring 6 L of oxygen and satting at around 96%. Blood pressure was 130/70 with a pulse of 100, respiratory was 30. Troponin was negative, BNP was 400. ECG showed normal sinus rhythm at a rate of 90
with right bundle branch block which is unchanged from prior, chest x-ray is completely clear. COVID test negative, influenza negative, CBC was unremarkable. bicarb of 37 which is similar to his prior elevated bicarb of 35.
A/P:
# COPD Exacerbation
# Acute on chronic hypoxic and hypercapnic respiratory failure,
O2 was weaned from 7L to 5L NC, baseline 2L NC
Cont PRN BIPAP use
Cont IV azithromycin for COPD exacerbation
Cont steroid with IV Decadron 6 mg BID for significant chest tightness
duonebs Q6 hour standing and Q3H PRN. Pt has nebulizer machine at home.
Procal negative which essentially r/o pneumonia
CT Chest also negative for PE, showed No acute disease of the chest. No evidence of pulmonary embolus. Findings consistent with moderate emphysematous disease.
cough suppression and antiemetics prn
Acapella , IS use when awake
pulmonary on board
# active smoking
extensive counselling provided
Pt declined nicotine patch
# AFIB - rate is sinus and well controlled, not currently on ac
continue home diltiazem
aspirin 81 daily
continue statin
# BPH
continue tamsulosin
DVT PPX - Lovenox sq
Code status - Full code
Dispo: PT OT eval
updated son on the phone.
Anticipated Discharge: 24 - 48 hours
Subjective/Interval History
-
Date of Service: December 25, 2024
Objective Data
-
Labs:
Laboratory Results
12/25/24
05:05
WBC 2.7 L
Hgb 13.1
Hct 42.6
Plt Count 102 L
Sodium 133 L
Potassium 5.1
Chloride 91 L
Carbon Dioxide 40 H
BUN 34 H
Creatinine 0.8
Glucose 201 H
Calcium 8.1 L
Vital Signs:
Vital Signs
Temp Pulse Resp BP Pulse Ox
36.7 C 77 14 117/55 97
12/25/24 07:42 12/25/24 08:00 12/25/24 08:00 12/25/24 08:00 12/25/24 08:00
I&O
12/24/24 12/25/24 12/26/24
06:59 06:59 06:59
Intake Total 600 / 600
Output Total 1275 / 1275
Balance 600 / 600 -1275 / -1275
Review of Systems
-
Respiratory: Reports Trouble Breathing (improved )
Physical Exam
-
General: Well Developed, Comfortable, Respiratory Distress and Conversant
HEENT: Oxygen (5L NC)
Respiratory: Wheezes, Non Labored Respirations and Other (chest tightness); Negative Accessory Resp Muscle Use
Cardiac: Regular Rhythm and S1/S2
GI: Soft, Nontender, Nondistended and Normal Bowel Sounds
Skin: Warm and Dry
Neuro: Awake and Alert
Psych: Calm and Intact Judgement/Insight
Data Reviewed
-
Labs: Labs Reviewed by me
--- NOTE | 2024-12-25 08:26 | PTOTSP ---
Reviewed chart and noted pt was transferred back to IMU from [facility] med/surg and PT order was NOT continued upon transfer. Will need updated PT and OT orders for continuation of services if stable to participate.
[2024-12-25] MEDS: DECADRON 6 MG IV ×2 (09:28→21:26)
--- NOTE | 2024-12-25 09:29 | W.PN.PUL3 ---
Today's Communication / Plan
-
Hypoxemia ongoing, not improving to baseline as of yet
IV steroids, will convert to PO when he is improving
BIPAP ongoing, compliant nightly
Check ECHO given prolonged hypoxemia, small effusion noted on CT
Encouraged breathing exercises, IS, OOB
Assessment
-
This is a 84-year-old male with past medical history significant for COPD on 2 L home O2, ongoing tobacco use, paroxysmal atrial fibrillation, hypertension, CHF who presented to the emergency room with shortness of breath. Patient required 6 L of
supplemental oxygen at admission and in view of respiratory distress was scheduled to be started on PAP therapy. In the emergency room troponin was negative, BNP was 400. ECG showed normal sinus rhythm at a rate of 90 with right bundle branch
block which is unchanged from prior, chest x-ray is completely clear. COVID test negative, influenza negative, CBC was unremarkable electrolytes BUN/creatinine were also stable except for a bicarb of 37 which is similar to his prior elevated bicarb
of 35. Chest x-ray without evidence of active pneumonia. Patient was brought to ICU for possible need for positive airway pressure therapy. Pulmonary consultation was requested for further recommendations..
Acute on chronic hypoxic and hypercapnic respiratory failure
AECOPD- on End stage COPD Hx
Small pericardial effusion on CT
Conditions present prior to admission:
[facility] 03-09 to : AECOPD. Again run out of nebulized BDs. O2 return to baseline 2L, d/c on prednisone taper
[facility] 11-29 to for AECOPD in suspected stage IV COPD, received ceftriaxone 3 d course by adm rekha, received tapering CSs.
Noted he run out of albuterol nebs due to frequent use due to uncontrolled dyspnea, could afford only half month supply
Chronic hypoxemic respiratory failure, suspected chronic hypercapnia (chronically elevated total serum CO2)
COVID illness, [facility] 01-24 to
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
Last seen in office-[facility] 04/01/23: FVC 1.02/28%, FEV1 0.26/10%, ratio 26%
6MWT confirms the need for 3 L O2 with ambulation.
History of E. coli bacteremia due to suspected biliary source 06/2021
Dilated CBD 1.8cm
Refused MRI testing due to refusal for mask use
H/o Prostate CA s/p XRT 2013
Chronic hypercarbia
Cholecystectomy
Chronic LILIBETH edema, mild
Obesity
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
Plan
Patient has known history of severe COPD with chronic hypercapnia with baseline pCO2 around 60 along with chronically elevated bicarb level on BMP.
Also chronically on 2 L oxygen at baseline, currently requiring 6 L.
Has not been able to wean down, sats 90-92%
Continue DuoNebs 4 times daily/Pulmicort twice daily
Continue Mucinex twice daily
Lower Solu-Medrol to 40 mg once daily, transition to PO taper when improving, slow progress
Azithromycin for 3 days.
Chest x-ray reviewed and not suggestive of any acute pneumonia.
PCT negative
COVID testing is negative and patient is otherwise afebrile with normal WBC count.
Incentive spirometry
Activity as tolerated
Recommend resuming follow-up as outpatient with pulmonary clinic
Severe COPD at baseline, home oxygen dependent
Prior [place] 04/01/23: FVC 1.02/28%, FEV1 0.26/10%, ratio 26%, significant BD response in FEV1 (27%). Post BD results FVC 0.99/27%, FEV1 0.33/13%, ratio 34%. Very severe obstruction and suggestive of severe restrictive pattern.
BIPAP is ordered nightly, he is compliant
Maintain use nightly and PRN
Chronic Co2 retention noted, but compensated
Echocardiogram in January 2022, LVEF 65 to 70%, normal right ventricle, no evidence of pulmonary hypertension
ProBNP 486
Chest x-ray suggestive of hyperinflation without any acute infiltrate
CT showing small pericardial effusion, will repeat ECHO to evaluate given hypoxemia
Reportedly patient taking only albuterol inhaler and albuterol/ipratropium nebulizer as needed at home, ideally needs to be on triple therapy postdischarge
More than [id number] smoking history, last cigarette was 3 days ago per patient
Outpatient follow-up with pulmonary clinic in 2 weeks
Diagnostic Data
CXR 12/21/24- The lungs appear clear. The lungs appear hyperinflated, suggesting COPD. Cardiac silhouette and vascular markings appear within normal limits.
CXR 05/13/24- Findings suggesting mild pulmonary interstitial edema.
CXRs 05-31-23, c/w 03-09 and 11-29-22. No pulmonary infiltrates. Somewhat prominent breast shadows
Chest CT: 12/24/24- No acute disease of the chest. No evidence of pulmonary embolus. Small pericardial effusion. Findings consistent with moderate emphysematous disease.
Mild right upper lobe atelectasis versus scarring.
TTE 01-24-22 CONCLUSIONS: Normal left ventricular size, wall thickness and systolic function. No regional wall motion abnormalities are seen. LV ejection fraction is 65-70% by visual assessment. Diastolic function indeterminate. Normal right
ventricular size and function. Normal atria. Aortic sclerosis without stenosis. No other significant valve abnormalities were observed. Small pericardial effusion without evidence of hemodynamic compromise. No evidence of pulmonary hypertension. No
prior study available for comparison.
LILIBETH doppler 01-24-22: negative
[facility] 04/01/23: FVC 1.02/28%, FEV1 0.26/10%, ratio 26%, significant BD response in FEV1 (27%). Post BD results FVC 0.99/27%, FEV1 0.33/13%, ratio 34%. Very severe obstruction and suggestive of severe restrictive pattern.
Total time spent on this consultation/encounter __55__ minutes which includes review of history, physical exam, medications, laboratory data, personal review of imaging, extensive review of outpatient records, discussion with care team and
respiratory therapy.
Subjective Data
-
Date of Service:
Date of Service: December 25, 2024
Chief Complaint: Pulmonary Follow Up
Subjective:
No acute events ON, maintained on 7L O2, sats 90-92%
Feels his breathing is improving, but still SOB with minimal activity
Sitting in chair, in good spirits
Objective Data
Data Reviewed
Vital Signs / I&O / Oxygen:
Vital Signs
Temp Pulse Resp BP Pulse Ox
98.1 F 77 14 117/55 97
12/25/24 07:42 12/25/24 08:00 12/25/24 08:00 12/25/24 08:00 12/25/24 08:00
Intake and Output
12/24/24 12/25/24 12/26/24
06:59 06:59 06:59
Intake Total 600 / 600
Output Total 1275 / 1275
Balance 600 / 600 -1275 / -1275
SaO2 97
Nasal Cannula flow liters per 6
minute
Physical Exam
General: Comfortable and Other (NAD)
HEENT: Normocephalic, Anicteric and Moist Mucous Membranes
Cardiovascular: S1-S2 and Regular Rhythm
Respiratory: Clear, Non-Labored Respirations and Other (poor air movement, barrel chested)
GI: Soft, Non Distended and Non Tender
Neurology: Awake, Alert, Oriented and No Motor Deficits
Skin: Warm, Dry and Good Color
Labs/Micro/Reports
Lab Data
12/25/24 05:05
12/25/24 05:05
--- NOTE | 2024-12-25 16:52 | PTCARENOTE ---
Patient AOx3. Patient can be forgetful at times. Bed and chair alarm on audible. Chronic L sided weakness. Patient on 5-7L NC with SpO2 greater than 92%. Frequent encouragement and education of IS. NSR with periods of a fib on the monitor. BP
stable. Patient uses urinal with yellow urine. Assist x1 with RW when OOB. Echo completed at bedside. Call rose within reach, bed in lowest position, and bed of wheels locked.
[2024-12-25] MEDS: ZITHROMAX 500 MG PO (17:06)
[2024-12-25] MEDS: LOVENOX 40 MG SC (17:06)
--- NOTE | 2024-12-25 22:37 | PTCARENOTE ---
Pt with episode of desat to 82%, MF O2 increased to 15L without improvement. RT Alexys contacted via TT. Pt denies symptoms, asks this RN for a cigarette and states 'I will be fine'. Pt complains about increased O2 flow and states it makes him
sneeze. Education provided on resp status and low SpO2, deep breathing encouraged until BiPAP can be placed by RT.
--- NOTE | 2024-12-25 22:48 | PTCARENOTE ---
Addendum entered by Vonnie Delgado 12/26/24 06:33:
After discussion with this RN regarding current POC, pt requests video swallow and states he thinks that aspiration is the real reason he is sick. States that he has seen a speech therapist before, but did not get imaging done.
Original Note:
Pt reports that he feels he aspirated his dinner. Reports a lot of coughing and feeling like it 'went down the wrong pipe'. Education provided.
[2024-12-26] VITALS (15 sets, daily range): BP systolic 103–138; BP diastolic 54–82; PULSE 2–78; BMI 21.0
--- NOTE | 2024-12-26 01:27 | PTCARENOTE ---
Addendum entered by Vonnie Delgado 12/26/24 06:36:
This RN contacted NANCI Batista regarding pt's anxiety. BUDDER arrived to bedside and pt stated that his anxiety was resolved.
Original Note:
Pt woke confused, this RN heard pt calling out for his son and BiPAP alarm going off. Upon entering the room, this RN found pt standing at bedside without O2, puls ox sensor on the floor, pt states he has to have a BM. This RN put 15L O2 on the pt
and put the commode behind pt so he could sit down and attempt a BM. SpO2 sensor replaced and showed pt at 85%, pt gradually improved to 97%, O2 decreased to 12L. Pt had already been incontinent in the brief, hygiene care performed. Pt able to void
on the commode. This RN and PCT safely transitioned pt back to bed. Pt declines to wear BiPAP and tells this RN he is experiencing a lot of anxiety and will stay awake until his son arrives during the day. Comfort provided. Bed alarm placed for pt
safety. Call rose education provided and encouraged.
[2024-12-26 05:37] LABS: Blood Urea Nitrogen 33 mg/dl (9-20); Calcium 8.3 mg/dl (8.4-10.2); Chloride 93 mmol/L (98-107); Estimated Creatinine Clearance 70 ml/min; Sodium 135 mmol/L (135-145); eGFR > 60.00
[2024-12-26 05:47] LABS: Carbon Dioxide 34 mmol/L (22-30); Glucose 173 mg/dl (70-99)
[2024-12-26] MEDS: MUCINEX 600 MG PO ×2 (07:46→19:53)
[2024-12-26] MEDS: NEURONTIN 300 MG PO ×3 (07:46→19:53)
[2024-12-26] MEDS: PROTONIX 40 MG PO (07:47)
[2024-12-26] MEDS: FLOMAX 0.4 MG PO ×2 (07:47→19:53)
[2024-12-26] MEDS: LOW STRENGTH ASPIRIN 81 MG PO (07:47)
[2024-12-26] MEDS: LIPITOR 40 MG PO (07:47)
[2024-12-26] MEDS: CARDIZEM CD 120 MG PO (07:47)
[2024-12-26] MEDS: DUONEB 3 ML INH ×4 (07:52→19:35)
[2024-12-26] MEDS: PULMICORT 0.5 MG INH ×2 (07:52→19:35)
--- NOTE | 2024-12-26 07:58 | W.PN.HOSP.TC ---
Today's Communication/Plan
-
Continue with PT, new speech/swallow eval
Otherwise continue current care. Not ready to transfer to another floor or be discharged.
Assessment / Plan
Assessment / Plan
84-year-old male with past medical history significant for:
COPD on 2 L home O2,
ongoing tobacco use,
proximal atrial fibrillation,
hypertension,
CHF; (likely diastolic failure)
presented with shortness of breath. He normally uses 2L but not continuously. He reports that he has been having shortness of breath for approximately 2 days. He also had a cough productive of some sputum. Nausea but no vomiting.
He denies having any chest pain. He denies orthopnea or PND. He denies any lower extremity swelling. He has not had any exertional chest pain. He denies any known sick contacts. On arrival in the emergency department he was requiring 6 L of
oxygen and satting at around 96%. Blood pressure was 130/70 with a pulse of 100, respiratory was 30. Troponin was negative, BNP was 400. ECG showed normal sinus rhythm at a rate of 90 with right bundle branch block which is unchanged from prior,
chest x-ray is completely clear. COVID test negative, influenza negative, CBC was unremarkable. bicarb of 37 which is similar to his prior elevated bicarb of 35.
A/P:
1. COPD Exacerbation with Acute on chronic hypoxic and hypercapnic respiratory failure - continues
Procal negative which essentially r/o pneumonia
CT Chest also negative for PE, showed No acute disease of the chest.
No evidence of pulmonary embolus. Findings consistent with moderate emphysematous disease.
O2 was weaned from 7L to 5L NC, baseline 2L NC
Cont PRN BIPAP use
Cont IV azithromycin for COPD exacerbation
Cont steroid with IV Decadron 6 mg BID for significant chest tightness
duonebs Q6 hour standing and Q3H PRN. Pt has nebulizer machine at home.
cough suppression and antiemetics prn
Acapella , IS use when awake
pulmonary consult appreciated
Likely will need a few more days before well enough to consider discharge
Continue working with PT
2. active smoking - chronic problem
extensive counselling provided
Pt declined nicotine patch
3. AFIB - rate is sinus and well controlled, not currently on ac
continue home diltiazem
aspirin 81 daily
continue statin
4. BPH - chronic problem
continue tamsulosin
5. Possible difficulties with swallowing food and liquids
Request speech/swallow eval
Other medical issues to be aware of:
small cardiac effusion on CT
Chronic hypoxemic respiratory failure, suspected chronic hypercapnia (chronically elevated total serum CO2)
COVID illness, [facility] 01-24 to
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
Last known [facility] 04/01/23: FVC 1.02/28%, FEV1 0.26/10%, ratio 26%
History of E. coli bacteremia due to suspected biliary source 06/2021
Dilated CBD 1.8cm
H/o Prostate CA s/p XRT 2013
Chronic hypercarbia
Cholecystectomy
Chronic LILIBETH edema, mild
DVT PPX - Lovenox sq
Code status - Full code
Dispo: PT OT eval
Anticipated Discharge: > 48 hours
Subjective/Interval History
-
Date of Service: December 26, 2024
Desats overnight, needed venti mask.
Objective Data
-
Labs:
Laboratory Results
12/26/24
04:59
Sodium 135
Potassium 5.0
Chloride 93 L
Carbon Dioxide 34 H
BUN 33 H
Creatinine 0.7
Glucose 173 H
Calcium 8.3 L
Vital Signs:
Vital Signs
Temp Pulse Resp BP Pulse Ox
97.7 F 80 20 133/68 95
12/26/24 07:31 12/26/24 07:52 12/26/24 07:52 12/26/24 07:47 12/26/24 07:52
I&O
12/25/24 12/26/24 12/27/24
06:59 06:59 07:59
Intake Total 720 / 720
Output Total 1275 / 1275 575 / 575
Balance -1275 / -1275 145 / 145
Review of Systems
-
History Source: Patient
All other systems: Reviewed and negative
Constitutional: Reports Sleep Disturbance
Respiratory: Reports Trouble Breathing
Physical Exam
-
General: Well Developed, Well Nourished, No Apparent Distress and Comfortable
HEENT: Normocephalic, Nose Appears Normal and Ears Appear Normal
Respiratory: Wheezes and Crackles
Cardiac: S1/S2 and Irregular Rhythm
GI: Soft, Nontender and Nondistended
Musculoskeletal: No Clubbing, No Cyanosis and No Edema
Skin: Warm and Dry
Neuro: Awake, Alert and Oriented
Psych: Calm
Data Reviewed
-
Labs: Labs Reviewed by me
[2024-12-26] MEDS: DECADRON 6 MG IV ×2 (10:04→22:57)
--- NOTE | 2024-12-26 10:51 | PTOTSP ---
Speech Therapy
Presentation: Patient's speech and language appeared to be WNL during conversation. Patient's voice appeared to be weak in quality. Patient coughed (wet sounding) prior to PO and during the session. Patient has COPD at baseline. Patient's cognition
is likely a barrier to carryover.
Swallowing Complaints: Per RN, patient coughed up mucous after eating a cheese steak. Patient has since been experiencing coughing. Per patient, patient often experiences coughing and food 'getting stuck' in esophagus. This has been a complaint for
years.
Previous ST at .: 06/04/23 VSE: regular consistency solids and thin liquids; see note for details.
Swallowing Function: Patient demonstrated an inconsistent wet cough at baseline. SENIOR TABLEAU DEVELOPER trialed thin lquids (cup and straw) in which patient demonstrated immediate reflexive wet coughing which resulted in red tinged face. SENIOR TABLEAU DEVELOPER trialed nectar thick
liquids vis cup in which patient appeared to tolerate as he did not exhibit any additional s/sx of aspiration. SENIOR TABLEAU DEVELOPER trialed regular consistency solids in which patient demonstrated dry coughing and stated the solids were 'stuck'. Patient unable to
expel bolus from oral cavity. SENIOR TABLEAU DEVELOPER trialed IDDSI 6 solids in which patient appeared to tolerate.
Given the above, recommend trial of nectar thick liquids and IDDSI 6 solids with VSE to r/o aspiration vs COPD exacerbation
Recommendations:
1) Trial of IDDSI 6 and nectar thick liquids
2) Aspiration precautions
3) Medications as tolerated
4) Consideration of VSE to r/o aspiration
5) Assistance and supervision with PO
6) Not appropriate for ARHP due to clinical presentation
7) PO only when RR <30 and SpO2> 90
Plan: SENIOR TABLEAU DEVELOPER will continue to follow to ensure tolerance and perform VSE; pending hospitalization
--- NOTE | 2024-12-26 13:23 | W.PN.PUL3 ---
Today's Communication / Plan
-
-Can DC azithromycin
-Recommend switching to prednisone 30 mg daily
-At discharge, recommend triple therapy with LAMA/LABA and inhaled corticosteroid
-Outpatient follow-up with pulmonary clinic
Assessment
-
This is a 84-year-old male with past medical history significant for COPD on 2 L home O2, ongoing tobacco use, paroxysmal atrial fibrillation, hypertension, CHF who presented to the emergency room with shortness of breath. Patient required 6 L of
supplemental oxygen at admission and in view of respiratory distress was scheduled to be started on PAP therapy. In the emergency room troponin was negative, BNP was 400. ECG showed normal sinus rhythm at a rate of 90 with right bundle branch
block which is unchanged from prior, chest x-ray is completely clear. COVID test negative, influenza negative, CBC was unremarkable electrolytes BUN/creatinine were also stable except for a bicarb of 37 which is similar to his prior elevated bicarb
of 35. Chest x-ray without evidence of active pneumonia. Patient was brought to ICU for possible need for positive airway pressure therapy. Pulmonary consultation was requested for further recommendations..
Acute on chronic hypoxic and hypercapnic respiratory failure
AECOPD- on End stage COPD Hx
Small pericardial effusion on CT
Conditions present prior to admission:
[facility] 03-09 to : AECOPD. Again run out of nebulized BDs. O2 return to baseline 2L, d/c on prednisone taper
[facility] 11-29 to for AECOPD in suspected stage IV COPD, received ceftriaxone 3 d course by adm rekha, received tapering CSs.
Noted he run out of albuterol nebs due to frequent use due to uncontrolled dyspnea, could afford only half month supply
Chronic hypoxemic respiratory failure, suspected chronic hypercapnia (chronically elevated total serum CO2)
COVID illness, [facility] 01-24 to
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
Last seen in office-[facility] 04/01/23: FVC 1.02/28%, FEV1 0.26/10%, ratio 26%
6MWT confirms the need for 3 L O2 with ambulation.
History of E. coli bacteremia due to suspected biliary source 06/2021
Dilated CBD 1.8cm
Refused MRI testing due to refusal for mask use
H/o Prostate CA s/p XRT 2013
Chronic hypercarbia
Cholecystectomy
Chronic LILIBETH edema, mild
Obesity
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
Plan
#1. Acute on chronic hypoxic respiratory failure with known history of severe COPD (oxygen dependent) with chronic hypercapnia with baseline pCO2 around 60 along with chronically elevated bicarb level on BMP.
Prior [facility] 04/01/23: FVC 1.02/28%, FEV1 0.26/10%, ratio 26%, significant BD response in FEV1 (27%). Post BD results FVC 0.99/27%, FEV1 0.33/13%, ratio 34%. Very severe obstruction and suggestive of severe restrictive disease with more than
24-[id number] smoking history.
-Also chronically on 2 L oxygen at baseline, required 6 L earlier during this hospital stay
-Continue DuoNebs 4 times daily/Pulmicort twice daily
-Continue Mucinex twice daily
-Lower Solu-Medrol to 40 mg once daily, transition to PO taper when improving, slow progress
-Azithromycin completed, can DC antibiotics
-Chest x-ray and CT scan reviewed, not suggestive of active infection.
-Increase activity as tolerated
-Continue nightly BiPAP
-At home patient reportedly taking only albuterol inhaler and nebulizer. Ideally should be on triple therapy post discharge. Last cigarette was 3 days prior to this hospitalization
-Echocardiogram not suggestive of pulmonary hypertension
Diagnostic Data
ECHO: Left ventricular ejection fraction is 65-70% by visual assessment. Normal
regional wall motion.
Enlarged right ventricular size. Low normal right ventricular systolic
function.
Aortic sclerosis without stenosis.
Trace tricuspid regurgitation. Estimated pulmonary artery pressure of 20-25
mmHg.
Compared to previous echo on 01/24/2022, no significant change in overall cardiac
function. The right ventricle is now enlarged.
CXR 12/21/24- The lungs appear clear. The lungs appear hyperinflated, suggesting COPD. Cardiac silhouette and vascular markings appear within normal limits.
CXR 05/13/24- Findings suggesting mild pulmonary interstitial edema.
CXRs 05-31-23, c/w 03-09 and 11-29-22. No pulmonary infiltrates. Somewhat prominent breast shadows
Chest CT: 12/24/24- No acute disease of the chest. No evidence of pulmonary embolus. Small pericardial effusion. Findings consistent with moderate emphysematous disease.
Mild right upper lobe atelectasis versus scarring.
TTE 01-24-22 CONCLUSIONS: Normal left ventricular size, wall thickness and systolic function. No regional wall motion abnormalities are seen. LV ejection fraction is 65-70% by visual assessment. Diastolic function indeterminate. Normal right
ventricular size and function. Normal atria. Aortic sclerosis without stenosis. No other significant valve abnormalities were observed. Small pericardial effusion without evidence of hemodynamic compromise. No evidence of pulmonary hypertension. No
prior study available for comparison.
LILIBETH doppler 01-24-22: negative
[facility] 04/01/23: FVC 1.02/28%, FEV1 0.26/10%, ratio 26%, significant BD response in FEV1 (27%). Post BD results FVC 0.99/27%, FEV1 0.33/13%, ratio 34%. Very severe obstruction and suggestive of severe restrictive pattern.
Total time spent on this consultation/encounter __55__ minutes which includes review of history, physical exam, medications, laboratory data, personal review of imaging, extensive review of outpatient records, discussion with care team and
respiratory therapy.
Subjective Data
-
Date of Service:
Date of Service: December 26, 2024
Chief Complaint: Pulmonary Follow Up
Subjective:
Patient reports feeling much improved
Objective Data
Data Reviewed
Vital Signs / I&O / Oxygen:
Vital Signs
Temp Pulse Resp BP Pulse Ox
97.5 F 75 29 138/73 94
12/26/24 11:25 12/26/24 12:00 12/26/24 12:00 12/26/24 12:00 12/26/24 12:00
Intake and Output
12/25/24 12/26/24 12/27/24
06:59 06:59 07:59
Intake Total 720 / 720 480 / 480
Output Total 1275 / 1275 575 / 575 450 / 450
Balance -1275 / -1275 145 / 145 30 / 30
SaO2 94
Nasal Cannula flow liters per 15
minute
Physical Exam
General: Comfortable and Other (NAD)
HEENT: Normocephalic, Anicteric and Moist Mucous Membranes
Cardiovascular: S1-S2 and Regular Rhythm
Respiratory: Clear, Non-Labored Respirations and Other (poor air movement, barrel chested)
GI: Soft, Non Distended and Non Tender
Neurology: Awake, Alert, Oriented and No Motor Deficits
Skin: Warm, Dry and Good Color
Labs/Micro/Reports
Lab Data
12/25/24 05:05
12/26/24 04:59
--- NOTE | 2024-12-26 15:42 | PTCARENOTE ---
Patient AOx3. Patient is forgetful. Bed alarm on and audible. Chronic L sided weakness. Speech consult recommendations of IDDSI 6 with mildly thickened liquids. Aspiration precautions maintained. Patient wearing 10-15L midflow. Oxygen titrated to
keep SpO2 greater than 92%. Patient placed on BiPAP for approx 2 hours due to taking a nap and SpO2 dropping in 80's. Patient is diminished, rhonchi, expiratory wheeze. Has LARA, dyspnea at rest, shallow, pursed lip breathing, labored. Large amount
of thick noel sputum. IS encouraged frequently throughout shift. NSR with BBB on monitor. BP stable. Patient utilizes urinal with yellow urine. Assist x1 with RW when OOB. Call rose within reach, bed in lowest position, and bed of wheels locked.
[2024-12-26] MEDS: LOVENOX 40 MG SC (17:18)
[2024-12-26] MEDS: ZITHROMAX 500 MG PO (17:18)
[2024-12-27] VITALS (12 sets, daily range): BP systolic 103–142; BP diastolic 52–86; PULSE 2–77; BMI 21.3
--- NOTE | 2024-12-27 00:17 | PTCARENOTE ---
Caring for pt overnight. aaox3 but forgetful, BA on. NSR, Remains 10LMF. Pt wore bipap for abut 2 hours, wanted it removed around midnight. pt states 'he does not sleep' VSS. NO other issues at this time. Will monitor.
[2024-12-27 05:29] LABS: Hematocrit 41.4 % (39.0-52.0); Hemoglobin 13.2 g/dL (13.0-18.0); Mean Corp Hgb Conc. 31.9 g/dL (33.0-37.0); Mean Corpuscular Hgb 30.6 pg (27.0-31.0); Mean Corpuscular Volume 95.8 fL (80.0-94.0); Mean Platelet Volume 10.3 fL (7.4-10.4); Platelet Count 90 10^3/uL (130-400); Red Blood Cell Count 4.32 10^6/uL (4.70-6.10); Red Cell Dist. Width 11.6 % (11.5-14.5); White Blood Cell Count 4.9 10^3/uL (4.8-10.8)
[2024-12-27 05:48] LABS: ALT (SGPT) 21 U/L (0-50); AST (SGOT) 23 U/L (17-59); Alkaline Phosphatase 81 U/L (38-126); Blood Urea Nitrogen 27 mg/dl (9-20); Calcium 8.1 mg/dl (8.4-10.2); Chloride 91 mmol/L (98-107); Estimated Creatinine Clearance 83 ml/min; Glucose 183 mg/dl (70-99); Potassium 4.8 mmol/L (3.5-5.1); Sodium 133 mmol/L (135-145); Total Bilirubin 0.6 mg/dl (0.2-1.3); eGFR > 60.00
[2024-12-27 05:59] LABS: Carbon Dioxide 39 mmol/L (22-30)
[2024-12-27] MEDS: PULMICORT 0.5 MG INH ×2 (07:59→19:39)
[2024-12-27] MEDS: DUONEB 3 ML INH ×4 (08:00→19:33)
--- NOTE | 2024-12-27 08:00 | PTCARENOTE ---
pt refusing to order breakfast due to restrictions. Wants to wait for attending to discuss restrictions and states he will take am meds at the time he receives his breakfast. continuing to monitor
--- NOTE | 2024-12-27 11:00 | W.PN.HOSP.TC ---
Today's Communication/Plan
-
Starting process to get him ready for discharge. PT to walk with him using a walker. Diet changed to regular (he will modify it himself with added water, as he does at home).
Assessment / Plan
Assessment / Plan
84-year-old male with past medical history significant for:
COPD on 2 L home O2,
ongoing tobacco use,
paroxismal atrial fibrillation,
essential hypertension,
CHF; (likely diastolic failure)
presented with shortness of breath. He normally uses 2L but not continuously. He reports that he has been having shortness of breath for approximately 2 days. He also had a cough productive of some sputum. Nausea but no vomiting.
He denies having any chest pain. He denies orthopnea or PND. He denies any lower extremity swelling. He has not had any exertional chest pain. He denies any known sick contacts. On arrival in the emergency department he was requiring 6 L of
oxygen and satting at around 96%. Blood pressure was 130/70 with a pulse of 100, respiratory was 30. Troponin was negative, BNP was 400. ECG showed normal sinus rhythm at a rate of 90 with right bundle branch block which is unchanged from prior,
chest x-ray is completely clear. COVID test negative, influenza negative, CBC was unremarkable. bicarb of 37 which is similar to his prior elevated bicarb of 35.
A/P:
1. COPD Exacerbation with Acute on chronic hypoxic and hypercapnic respiratory failure - continues, but is improving.
Procal negative which essentially r/o pneumonia
CT Chest also negative for PE, showed No acute disease of the chest.
No evidence of pulmonary embolus. Findings consistent with moderate emphysematous disease.
O2 was weaned from 7L to 5L NC, baseline 2L NC
Cont PRN BIPAP use
Cont steroid for significant chest tightness
duonebs Q6 hour standing and Q3H PRN. Pt has nebulizer machine at home.
cough suppression and antiemetics prn
Acapella , IS use when awake
Pulmonary note:
'-Can DC azithromycin
-Recommend switching to prednisone 30 mg daily
-At discharge, recommend triple therapy with LAMA/LABA and inhaled corticosteroid
-Outpatient follow-up with pulmonary clinic'
pulmonary consult appreciated
Likely will need a 1-2 more days before well enough to consider discharge
Continue working with PT
Use walker today
2. active smoking - chronic problem
extensive counselling provided
Pt declined nicotine patch
3. AFIB - rate is sinus and well controlled, not currently on ac
continue home diltiazem
aspirin 81 daily
continue statin
4. BPH - chronic problem
continue tamsulosin
5. Possible difficulties with swallowing food and liquids
Request speech/swallow eval
6. Dropping platelets: 115 -> 102 -> 90
May be from heparin
Stop heparin
Use SCD for DVTp
7. Diet consistency and swallow issues
Patient adamant that he can manage a regular diet himself, by adding water as needed to soften food
He has capacity to make this request
Diet changed to regular
Other medical issues to be aware of:
small cardiac effusion on CT
Chronic hypoxemic respiratory failure, suspected chronic hypercapnia (chronically elevated total serum CO2)
COVID illness, adm DH - to
Severe COPD, latest baseline from 2 to 2.5 L [employer]
Last known [place] 04/01/23: FVC 1.02/28%, FEV1 0.26/10%, ratio 26%
History of E. coli bacteremia due to suspected biliary source 06/2021
Dilated CBD 1.8cm
H/o Prostate CA s/p XRT 2013
Chronic hypercarbia
Cholecystectomy
Chronic LILIBETH edema, mild
DVT PPX - Lovenox sq
Code status - Full code
Dispo: PT OT eval
Anticipated Discharge: 24 - 48 hours
Subjective/Interval History
-
Date of Service: December 27, 2024
Wants a regular diet that he can himself modify with water.
Objective Data
-
Labs:
Laboratory Results
12/27/24
05:08
WBC 4.9
Hgb 13.2
Hct 41.4
Plt Count 90 L
Sodium 133 L
Potassium 4.8
Chloride 91 L
Carbon Dioxide 39 H
BUN 27 H
Creatinine 0.6 L
Glucose 183 H
Calcium 8.1 L
Total Bilirubin 0.6
AST 23
ALT 21
Alkaline Phosphatase 81
Vital Signs:
Vital Signs
Temp Pulse Resp BP Pulse Ox
97.2 F 83 16 140/80 93
12/27/24 03:00 12/27/24 08:01 12/27/24 08:01 12/27/24 08:00 12/27/24 08:01
I&O
12/26/24 12/27/24 12/28/24
05:59 06:59 06:59
Intake Total
Output Total
Balance
Review of Systems
-
History Source: Patient
All other systems: Reviewed and negative
Physical Exam
-
General: Well Developed, Well Nourished, No Apparent Distress and Comfortable
HEENT: Normocephalic, Atraumatic, Nose Appears Normal and Ears Appear Normal
Respiratory: Clear to Auscultation
Cardiac: Regular Rhythm and S1/S2
GI: Soft, Nontender and Nondistended
Musculoskeletal: No Clubbing and No Cyanosis
Skin: Warm and Dry
Neuro: Awake and Alert
Psych: Calm
Data Reviewed
-
Labs: Labs Reviewed by me
[2024-12-27] MEDS: DECADRON 6 MG IV ×2 (11:55→22:17)
--- NOTE | 2024-12-27 12:47 | W.PN.PUL3 ---
Today's Communication / Plan
-
-Can DC azithromycin
-Recommend lowering steroids and switch to prednisone 30 mg daily
-At discharge, recommend triple therapy with LAMA/LABA and inhaled corticosteroid
-Outpatient follow-up with pulmonary clinic
Assessment
-
This is a 84-year-old male with past medical history significant for COPD on 2 L home O2, ongoing tobacco use, paroxysmal atrial fibrillation, hypertension, CHF who presented to the emergency room with shortness of breath. Patient required 6 L of
supplemental oxygen at admission and in view of respiratory distress was scheduled to be started on PAP therapy. In the emergency room troponin was negative, BNP was 400. ECG showed normal sinus rhythm at a rate of 90 with right bundle branch
block which is unchanged from prior, chest x-ray is completely clear. COVID test negative, influenza negative, CBC was unremarkable electrolytes BUN/creatinine were also stable except for a bicarb of 37 which is similar to his prior elevated bicarb
of 35. Chest x-ray without evidence of active pneumonia. Patient was brought to ICU for possible need for positive airway pressure therapy. Pulmonary consultation was requested for further recommendations..
Acute on chronic hypoxic and hypercapnic respiratory failure
AECOPD- on End stage COPD Hx
Small pericardial effusion on CT
Conditions present prior to admission:
[facility] 03-09 to : AECOPD. Again run out of nebulized BDs. O2 return to baseline 2L, d/c on prednisone taper
[facility] 11-29 to for AECOPD in suspected stage IV COPD, received ceftriaxone 3 d course by adm rekha, received tapering CSs.
Noted he run out of albuterol nebs due to frequent use due to uncontrolled dyspnea, could afford only half month supply
Chronic hypoxemic respiratory failure, suspected chronic hypercapnia (chronically elevated total serum CO2)
COVID illness, [facility] 01-24 to
Severe COPD, latest baseline from 2 to 2.5 L [employer]
Last seen in office-[place] 04/01/23: FVC 1.02/28%, FEV1 0.26/10%, ratio 26%
6MWT confirms the need for 3 L O2 with ambulation.
History of E. coli bacteremia due to suspected biliary source 06/2021
Dilated CBD 1.8cm
Refused MRI testing due to refusal for mask use
H/o Prostate CA s/p XRT 2013
Chronic hypercarbia
Cholecystectomy
Chronic LILIBETH edema, mild
Obesity
Tobacco dependence: states quit 1 wk [employer], states commitment to smoking cessation
Plan
#1. Acute on chronic hypoxic respiratory failure with known history of severe COPD (oxygen dependent) with chronic hypercapnia with baseline pCO2 around 60 along with chronically elevated bicarb level on BMP.
Prior [place] 04/01/23: FVC 1.02/28%, FEV1 0.26/10%, ratio 26%, significant BD response in FEV1 (27%). Post BD results FVC 0.99/27%, FEV1 0.33/13%, ratio 34%. Very severe obstruction and suggestive of severe restrictive disease with more than
[id number] smoking history.
-Also chronically on 2 L oxygen at baseline, required 6 L earlier during this hospital stay
-Continue DuoNebs 4 times daily/Pulmicort twice daily
-Continue Mucinex twice daily
-Recommend lowering steroid dose and switching to oral prednisone 30 a day
-Azithromycin completed, can DC antibiotics
-Chest x-ray and CT scan reviewed, not suggestive of active infection.
-Increase activity as tolerated
-Continue nightly BiPAP
-At home patient reportedly taking only albuterol inhaler and nebulizer. Ideally should be on triple therapy post discharge. Last cigarette was 3 days prior to this hospitalization
-Echocardiogram not suggestive of pulmonary hypertension
Diagnostic Data
ECHO: Left ventricular ejection fraction is 65-70% by visual assessment. Normal
regional wall motion.
Enlarged right ventricular size. Low normal right ventricular systolic
function.
Aortic sclerosis without stenosis.
Trace tricuspid regurgitation. Estimated pulmonary artery pressure of 20-25
mmHg.
Compared to previous echo on 01/24/2022, no significant change in overall cardiac
function. The right ventricle is now enlarged.
CXR 12/21/24- The lungs appear clear. The lungs appear hyperinflated, suggesting COPD. Cardiac silhouette and vascular markings appear within normal limits.
CXR 05/13/24- Findings suggesting mild pulmonary interstitial edema.
CXRs 05-31-23, c/w 03-09 and 11-29-22. No pulmonary infiltrates. Somewhat prominent breast shadows
Chest CT: 12/24/24- No acute disease of the chest. No evidence of pulmonary embolus. Small pericardial effusion. Findings consistent with moderate emphysematous disease.
Mild right upper lobe atelectasis versus scarring.
TTE 01-24-22 CONCLUSIONS: Normal left ventricular size, wall thickness and systolic function. No regional wall motion abnormalities are seen. LV ejection fraction is 65-70% by visual assessment. Diastolic function indeterminate. Normal right
ventricular size and function. Normal atria. Aortic sclerosis without stenosis. No other significant valve abnormalities were observed. Small pericardial effusion without evidence of hemodynamic compromise. No evidence of pulmonary hypertension. No
prior study available for comparison.
LILIBETH doppler 01-24-22: negative
[place] 04/01/23: FVC 1.02/28%, FEV1 0.26/10%, ratio 26%, significant BD response in FEV1 (27%). Post BD results FVC 0.99/27%, FEV1 0.33/13%, ratio 34%. Very severe obstruction and suggestive of severe restrictive pattern.
Total time spent on this consultation/encounter __25__ minutes which includes review of history, physical exam, medications, laboratory data, personal review of imaging, extensive review of outpatient records, discussion with care team and
respiratory therapy.
Subjective Data
-
Date of Service:
Date of Service: December 27, 2024
Chief Complaint: Pulmonary Follow Up
Subjective:
Patient comfortably sitting in bed in no acute distress. Reports feeling close to his baseline. Family at bedside.
Objective Data
Data Reviewed
Vital Signs / I&O / Oxygen:
Vital Signs
Temp Pulse Resp BP Pulse Ox
97.2 F 71 16 140/80 94
03/09/25 03:00 12/27/24 11:46 12/27/24 11:46 12/27/24 08:00 12/27/24 11:46
Intake and Output
12/26/24 12/27/24 12/28/24
05:59 06:59 06:59
Intake Total
Output Total 400 / 400
Balance -400 / -400
SaO2 94
Nasal Cannula flow liters per 15
minute
Physical Exam
General: Comfortable
HEENT: Normocephalic
Cardiovascular: S1-S2
Respiratory: Wheeze (Minimal wheezing end expiratory)
GI: Soft and Non Distended
Neurology: Awake and Alert
Skin: Warm
Labs/Micro/Reports
Lab Data
12/27/24 05:08
12/27/24 05:08
[2024-12-27] MEDS: LIPITOR 40 MG PO (13:42)
[2024-12-27] MEDS: FLOMAX 0.4 MG PO ×2 (13:42→20:04)
[2024-12-27] MEDS: NEURONTIN 300 MG PO ×3 (13:42→22:33)
[2024-12-27] MEDS: MUCINEX 600 MG PO ×2 (13:42→20:04)
[2024-12-27] MEDS: CARDIZEM CD 120 MG PO (13:43)
[2024-12-27] MEDS: PROTONIX 40 MG PO (13:43)
[2024-12-27] MEDS: LOW STRENGTH ASPIRIN 81 MG PO (13:43)
--- NOTE | 2024-12-27 14:45 | PTCARENOTE ---
pt reporting that he feels slightly dizzy with turning. Pox 94% on 8 L nasal canula. B/p normotensive; sinus rhythm on tele with rates 80-90. Accucheck 233. continuing to monitor.
[2024-12-27 14:59] LABS: Glucose - Point of Care 233 mg/dl (70-99)
[2024-12-27] MEDS: ZITHROMAX 500 MG PO (18:29)
[2024-12-28] VITALS (11 sets, daily range): BP systolic 109–142; BP diastolic 54–88; PULSE 2–80; BMI 21.1
[2024-12-28] MEDS: NEURONTIN PO (00:18)
--- NOTE | 2024-12-28 01:26 | PTCARENOTE ---
Received patient at change of shift. Patient aaox3, able to make needs known, denies pain at rest. C/o pain at times to LUE r/to hx of shingles, taking gabapentin tid to relieve pain. Affect pleasant. NSR on the monitor with PACs, positive radial
and pedal pulses. Lung sounds with scattered fine rhonchi, and expiratory wheeze. Patient on 10L midflow, Bipap at HS however refusing BiPap this evening, agreeable to 10L midflow. Pox low 90's at this time, decreases to 80% without midflow, slow to
recover when oxygen placed. Patient using urinal, however is incontinent of bowel earlier this evening; loose, brown. IV to right wrist patent. Will continue to monitor patient closely.
--- NOTE | 2024-12-28 04:02 | PTCARENOTE ---
Patient confused and agitated overnight. Any time RN enters room, patient states, 'I dont need anything. I can take care of myself. If my oxygen is off, I know it'. Pox decreasing to 80% when mid flow not adequately in place. RN applied correct
placement, POX increases to 94%. Will continue to monitor.
[2024-12-28 05:46] LABS: Hematocrit 42.2 % (39.0-52.0); Hemoglobin 13.3 g/dL (13.0-18.0); Mean Corp Hgb Conc. 31.5 g/dL (33.0-37.0); Mean Corpuscular Hgb 29.8 pg (27.0-31.0); Mean Corpuscular Volume 94.6 fL (80.0-94.0); Platelet Count 97 10^3/uL (130-400); Red Blood Cell Count 4.46 10^6/uL (4.70-6.10); Red Cell Dist. Width 11.7 % (11.5-14.5); White Blood Cell Count 5.2 10^3/uL (4.8-10.8)
[2024-12-28 05:47] LABS: Blood Urea Nitrogen 26 mg/dl (9-20); Calcium 8.2 mg/dl (8.4-10.2); Chloride 88 mmol/L (98-107); Estimated Creatinine Clearance 83 ml/min; Glucose 200 mg/dl (70-99); Potassium 4.8 mmol/L (3.5-5.1); Sodium 133 mmol/L (135-145); eGFR > 60.00
[2024-12-28 06:08] LABS: Carbon Dioxide 38 mmol/L (22-30)
[2024-12-28] MEDS: DUONEB 3 ML INH ×4 (08:07→20:58)
[2024-12-28] MEDS: PULMICORT 0.5 MG INH ×2 (08:07→20:58)
[2024-12-28] MEDS: MUCINEX 600 MG PO ×2 (08:52→19:36)
[2024-12-28] MEDS: PROTONIX 40 MG PO (08:52)
[2024-12-28] MEDS: NEURONTIN 300 MG PO ×3 (08:53→21:42)
[2024-12-28] MEDS: LOW STRENGTH ASPIRIN 81 MG PO (08:53)
[2024-12-28] MEDS: FLOMAX 0.4 MG PO ×2 (08:53→19:37)
[2024-12-28] MEDS: CARDIZEM CD 120 MG PO (08:53)
[2024-12-28] MEDS: LIPITOR 40 MG PO (08:53)
--- NOTE | 2024-12-28 09:43 | W.PN.PUL.V3 ---
Today's Communication / Plan
-
nebulizers.
Wean oxygen.
Increase activity.
Change Decadron to Oral Prednisone
Assessment
-
This is a 84-year-old male with past medical history significant for COPD on 2 L home O2, ongoing tobacco use, paroxysmal atrial fibrillation, hypertension, CHF who presented to the emergency room with shortness of breath. Patient required 6 L of
supplemental oxygen at admission and in view of respiratory distress was scheduled to be started on PAP therapy. In the emergency room troponin was negative, BNP was 400. ECG showed normal sinus rhythm at a rate of 90 with right bundle branch
block which is unchanged from prior, chest x-ray is completely clear. COVID test negative, influenza negative, CBC was unremarkable electrolytes BUN/creatinine were also stable except for a bicarb of 37 which is similar to his prior elevated bicarb
of 35. Chest x-ray without evidence of active pneumonia. Patient was brought to ICU for possible need for positive airway pressure therapy. Pulmonary consultation was requested for further recommendations..
Acute on chronic hypoxic and hypercapnic respiratory failure
AECOPD- on End stage COPD Hx
Small pericardial effusion on CT
Conditions present prior to admission:
[facility] 03-09 to : AECOPD. Again run out of nebulized BDs. O2 return to baseline 2L, d/c on prednisone taper
[facility] 11-29 to for AECOPD in suspected stage IV COPD, received ceftriaxone 3 d course by adm rekha, received tapering CSs.
Noted he run out of albuterol nebs due to frequent use due to uncontrolled dyspnea, could afford only half month supply
Chronic hypoxemic respiratory failure, suspected chronic hypercapnia (chronically elevated total serum CO2)
COVID illness, [facility] 01-24 to
Severe COPD, latest baseline from 2 to 2.5 L [employer]
Last seen in office-[place] 04/01/23: FVC 1.02/28%, FEV1 0.26/10%, ratio 26%
6MWT confirms the need for 3 L O2 with ambulation.
History of E. coli bacteremia due to suspected biliary source 06/2021
Dilated CBD 1.8cm
Refused MRI testing due to refusal for mask use
H/o Prostate CA s/p XRT 2013
Chronic hypercarbia
Cholecystectomy
Chronic LILIBETH edema, mild
Obesity
Tobacco dependence: states quit 1 wk [employer], states commitment to smoking cessation
Plan
Respiratory status slowly improving-severe oxygen dependent COPD with acute decompensation-chronic hypercapnia.
Supplemental oxygen as needed-attempt to wean-on 2.5 L at home.
Nebulizers-dual nebs and budesonide
Decadron.
Mucolytic
Aspiration precautions.
Mucus clearing devices..
Currently on Decadron 6 milligrams IV every 12 hours-changed to prednisone with slow taper
BiPAP at night-not tolerating-according to nursing rips it off after 15 minutes and states that he does not need it-we will not try to arrange as an outpatient
Cultures reviewed.
Status post antibiotics-observe off antibiotics..
Ongoing smoking cessation counseling.
DVT prophylaxis
GI prophylaxis-on pantoprazole.
Nutrition
Early mobilization.
Reviewed with case management-no needs to set up BiPAP as an outpatient-refusing as an inpatient
Outpatient pulmonary follow-sees Dr. Jesus
Diagnostic Data
ECHO: Left ventricular ejection fraction is 65-70% by visual assessment. Normal regional wall motion. right ventricular size. Low normal right ventricular systolic function.
Aortic sclerosis without stenosis.Trace tricuspid regurgitation. Estimated pulmonary artery pressure of 20-25 mmHg. Compared to previous echo on 01/24/2022, no significant change in overall cardiac function. The right ventricle is now enlarged.
CXR 12/21/24- The lungs appear clear. The lungs appear hyperinflated, suggesting COPD. Cardiac silhouette and vascular markings appear within normal limits.
CXR 05/13/24- Findings suggesting mild pulmonary interstitial edema.
CXRs 05-31-23, c/w 03-09 and 11-29-22. No pulmonary infiltrates. Somewhat prominent breast shadows
Chest CT: 12/24/24- No acute disease of the chest. No evidence of pulmonary embolus. Small pericardial effusion. Findings consistent with moderate emphysematous disease.
Mild right upper lobe atelectasis versus scarring.
TTE 01-24-22 CONCLUSIONS: Normal left ventricular size, wall thickness and systolic function. No regional wall motion abnormalities are seen. LV ejection fraction is 65-70% by visual assessment. Diastolic function indeterminate. Normal right
ventricular size and function. Normal atria. Aortic sclerosis without stenosis. No other significant valve abnormalities were observed. Small pericardial effusion without evidence of hemodynamic compromise. No evidence of pulmonary hypertension. No
prior study available for comparison.
LILIBETH doppler 01-24-22: negative
[place] 04/01/23: FVC 1.02/28%, FEV1 0.26/10%, ratio 26%, significant BD response in FEV1 (27%). Post BD results FVC 0.99/27%, FEV1 0.33/13%, ratio 34%. Very severe obstruction and suggestive of severe restrictive pattern.
Subjective Data
-
Date of Service:
Date of Service: December 28, 2024
Chief Complaint: Pulmonary Follow Up and Dyspnea Follow Up
Subjective:
Feels better, less short of breath, bed, still on increased FiO2, refusing BiPAP, no abdominal pain
Review of Systems
General: Other (per HPI)
Objective Data
Data Reviewed
Vital Signs / I&O:
Vital Signs
Temp Pulse Resp BP Pulse Ox
97.1 F 93 19 137/73 90
12/28/24 07:15 12/28/24 08:53 12/28/24 06:00 12/28/24 08:53 12/28/24 06:00
Intake and Output
12/27/24 12/28/24 12/29/24
06:59 06:59 06:59
Intake Total 680 / 680
Output Total 1400 / 1400 300 / 300
Balance -720 / -720 -300 / -300
SaO2: 90
Nasal Cannula flow liters per minute: 8
Physical Exam
General: Respiratory Distress (n) and Comfortable
HEENT: Normocephalic and Anicteric
Cardiovascular: Regular Rhythm
Respiratory: Wheeze (Minimal wheezing end expiratory), Crackles ( rare basilar), Non-Labored Respirations and Accessory Resp Muscle Use (n)
GI: Soft and Non Distended
Neurology: Awake, Alert and No Motor Deficits
Skin: Warm, Good Color, Cyanosis (n) and Jaundice
Labs/Micro/Reports
Lab Data
12/28/24 05:10
12/28/24 05:10
--- NOTE | 2024-12-28 10:10 | VNURNOTE ---
VN liaison spoke to patient's son Justino. He confirmed that the patient was seeing PCP Dr Mark Anthony Tai/Ty. He thinks last visit was within the past few months. Justino stated patient has home 02 - unsure of company. Relayed PCP info to
VN Intake.
[2024-12-28] MEDS: DECADRON 6 MG IV (10:42)
--- NOTE | 2024-12-28 12:14 | RESPNOTE ---
patient keeps asking for walker but refused PT & OT today. tried to explain to patient that PT& OT need to do their evaluation if he wants to walk with walker. Patient does not want to hear it, says he can get script for a walker via his PCP after
discharge. educated that without PT/OT and their evaluation, he could fall with the walker or he may be de-conditioned enough to require a SNF to build up endurance to get back to baseline. patient shoo-ed away with his hand and stated ' you must be
paid on commission.' again tried to educate patient that his O2 requirements and strength needs to be evaluated before discharge and going home can be dangerous, and the best provider to evaluate is PT & OT.
--- NOTE | 2024-12-28 15:19 | WOUNDNOTE ---
[facility] RN note: Patient seen for HAPI for R buttocks stage 2 pressure injury. Patient confirmed he's had an open area there prior to admission. Silicone border foam applied to small R sacral/buttocks pressure injury. He has what appears to be an anal
hemorrhoid. Patient incontinent of smear of dark brown stool. [place] care given. Calazime applied. He has an air chair cushion and is on a [employer] air bed. He stated he eats at least 50% of his meals. He turns self in bed. Instructed patient
pressure injury prevention measures. Patient stated he has a history of radiation therapy that make him incontinent of stool and that he sleeps in a recliner chair at home. He lives at [facility] and has an Aide a couple times a week. He said he
spoke with someone about a VN. Skin on heels intact. Heels off bed with pillow. Discussed with VENKATESH Rascon. Care plan to be updated. Consult as needed.
--- NOTE | 2024-12-28 15:32 | WOUNDNOTE ---
R KNEE (LATERAL DISTAL)
--- NOTE | 2024-12-28 15:58 | PTCARENOTE ---
Rec'd pt this AM. Pt was disoriented overnight, awoke confused this AM. better once sun came up. eating all meals. Pt is very clear that he wants a regular diet, despite Speech therapy recs. He understands he may aspirate and is willing to accept
that risk. vital signs stable. Son at bedside.
--- NOTE | 2024-12-28 17:02 | W.PN.HOSP.TC ---
Today's Communication/Plan
-
switch to po pred
wean o2
Assessment / Plan
Assessment / Plan
84-year-old male with past medical history significant for COPD on 2 L home O2, ongoing tobacco use, proximal atrial fibrillation, hypertension, CHF; presented to the emergency department with shortness of breath.
Patient normally uses 2L but not continuously. He reports that he has been having shortness of breath for approximately 2 days. He also had a cough productive of some sputum. Nausea but no vomiting.
He denies having any chest pain. He denies orthopnea or PND. He denies any lower extremity swelling. He has not had any exertional chest pain. He denies any known sick contacts.
On arrival in the emergency department he was requiring 6 L of oxygen and satting at around 96%. Blood pressure was 130/70 with a pulse of 100, respiratory was 30. Troponin was negative, BNP was 400. ECG showed normal sinus rhythm at a rate of 90
with right bundle branch block which is unchanged from prior, chest x-ray is completely clear. COVID test negative, influenza negative, CBC was unremarkable. bicarb of 37 which is similar to his prior elevated bicarb of 35.
A/P:
# COPD Exacerbation
# Acute on chronic hypoxic and hypercapnic respiratory failure,
cont to wean o2, baseline 2L NC
Cont NIV qhs and PRN BIPAP use
completed azithromycin course
Switch iv Decadron to po prednisone
Duonebs
CT Chest also negative for PE, showed No acute disease of the chest. No evidence of pulmonary embolus. Findings consistent with moderate emphysematous disease.
cough suppression and antiemetics prn
Acapella , IS use when awake
pulmonary on board
At discharge, recommend triple therapy with LAMA/LABA and inhaled corticosteroid
f/u pulmonary outpot
# active smoking
extensive counselling provided
Pt declined nicotine patch
#Hyponatremia
-monitor
-SIADH
#Dysphagia
-patient declines to use modified diet and understands risks
# AFIB - rate is sinus and well controlled, not currently on ac
continue home diltiazem
aspirin 81 daily
continue statin
-more than likely not on anticoag due to fall risk
# BPH
continue tamsulosin
#small cardiac effusion on CT
-f/u cards outpt
DVT PPX - Lovenox sq
Code status - Full code
Dispo: PT OT eval
updated son on the phone.
Anticipated Discharge: 24 - 48 hours
Subjective/Interval History
-
Date of Service: December 28, 2024
States understands risks of regular diet, does not want modified diet
Objective Data
-
Labs:
Laboratory Results
12/28/24
05:10
WBC 5.2
Hgb 13.3
Hct 42.2
Plt Count 97 L
Sodium 133 L
Potassium 4.8
Chloride 88 L
Carbon Dioxide 38 H
BUN 26 H
Creatinine 0.6 L
Glucose 200 H
Calcium 8.2 L
Vital Signs:
Vital Signs
Temp Pulse Resp BP Pulse Ox
97.1 F 73 18 117/71 93
12/28/24 07:15 12/28/24 15:40 12/28/24 15:40 12/28/24 10:00 12/28/24 15:53
I&O
12/27/24 12/28/24 12/29/24
06:59 06:59 06:59
Intake Total 680 / 680
Output Total 1400 / 1400 300 / 300
Balance -720 / -720 -300 / -300
Review of Systems
-
History Source: Patient
All other systems: Not reviewed unless documented
Physical Exam
-
General: Well Developed, Well Nourished, No Apparent Distress and Comfortable
HEENT: Normocephalic, Atraumatic, Nose Appears Normal and Ears Appear Normal
Respiratory: Clear to Auscultation
Cardiac: Regular Rhythm and S1/S2
GI: Soft, Nontender and Nondistended
Musculoskeletal: No Clubbing and No Cyanosis
Skin: Warm and Dry
Neuro: Awake and Alert
Psych: Calm
Data Reviewed
-
Labs: Labs Reviewed by me
--- NOTE | 2024-12-28 18:00 | CM ---
Patient who resides at [facility] with Dx COPD Exacerbation, Acute on chronic hypoxic and hypercapnic respiratory failure. O2 8 L midflow. BiPAP ordered. Receiving IV Steroids. Seen by wound care nurse.
ST - dysphagia diet recommended, declined - on regular diet. per MD.
PT/OT 12/25 recommends HH. Refused PT/OT today - requested RW from therapists however declined to work with them.
Spoke with Dr Ferreira; BiPAP not needed at home because patient refusing/not tolerating.
Met with patient and encouraged him to work with PT/OT so decision can be made re; his request for a RW.
Noting patient accepted by [facility].
Plan follow patient's home O2 needs - may need to check liter flow on home O2.
Plan follow up after seen again by PT/OT - check if RW needed.
Plan home with [facility].
--- NOTE | 2024-12-28 18:28 | PTCARENOTE ---
Discussed code status with pt as he had questions about what it means to be DNR vs Full Code. RN provided education. Pt stated that he would not want to be intubated or have any other heroic measures and would want to be allowed to peacefully.
Son called this RN to verify this info regarding his father's wishes to be DNR. RN Updated Dr. Craig via TT
[2024-12-29] VITALS (14 sets, daily range): BP systolic 103–144; BP diastolic 60–97; PULSE 2–90; O2SAT 90; BMI 21.1
--- NOTE | 2024-12-29 04:19 | PTCARENOTE ---
Pt AAOx3, can be confused at times throughout the night. SR on CM. Agreeable to wear BiPAP however pt does pull at mask, try to adjust independently and mask must be adjusted at times by respiratory therapist. Denies complaints through the night. VS
as documented. Assessment as documented. Call rose within reach. Bed alarm in place for pt safety.
[2024-12-29 06:16] LABS: ALT (SGPT) 34 U/L (0-50); AST (SGOT) 24 U/L (17-59); Albumin 3.3 g/dl (3.5-5.0); Alkaline Phosphatase 82 U/L (38-126); Blood Urea Nitrogen 24 mg/dl (9-20); Calcium 8.3 mg/dl (8.4-10.2); Chloride 90 mmol/L (98-107); Estimated Creatinine Clearance 82 ml/min; Glucose 180 mg/dl (70-99); Potassium 4.4 mmol/L (3.5-5.1); Sodium 133 mmol/L (135-145); Total Bilirubin 0.7 mg/dl (0.2-1.3); Total Protein 5.4 g/dl (6.3-8.2); eGFR > 60.00
[2024-12-29 06:26] LABS: Carbon Dioxide 35 mmol/L (22-30)
[2024-12-29 06:27] LABS: Hematocrit 42.9 % (39.0-52.0); Hemoglobin 13.5 g/dL (13.0-18.0); Mean Corp Hgb Conc. 31.5 g/dL (33.0-37.0); Mean Corpuscular Volume 95.3 fL (80.0-94.0); Mean Platelet Volume 10.2 fL (7.4-10.4); Platelet Count 114 10^3/uL (130-400); Red Cell Dist. Width 11.6 % (11.5-14.5); White Blood Cell Count 8.4 10^3/uL (4.8-10.8)
[2024-12-29] MEDS: DUONEB 3 ML INH ×4 (07:21→19:04)
[2024-12-29] MEDS: PULMICORT 0.5 MG INH ×2 (07:22→19:04)
--- NOTE | 2024-12-29 08:09 | PTCARENOTE ---
Patient received from hourly shift. Patient resting comfortably in bed. AAO, VSS. No events noted overnight other than some ing. No complaints of pain at this time. Currently on 10L Midflow, wore CPAP overnight. Will attempt to wean as
tolerated. No tests scheduled at this time. Call rose in reach.
[2024-12-29] MEDS: LIPITOR 40 MG PO (08:59)
[2024-12-29] MEDS: NEURONTIN 300 MG PO ×3 (08:59→21:00)
[2024-12-29] MEDS: MUCINEX 600 MG PO ×2 (08:59→21:00)
[2024-12-29] MEDS: PROTONIX 40 MG PO (08:59)
[2024-12-29] MEDS: DELTASONE 50 MG PO (08:59)
[2024-12-29] MEDS: LOW STRENGTH ASPIRIN 81 MG PO (08:59)
[2024-12-29] MEDS: FLOMAX 0.4 MG PO ×2 (08:59→21:00)
[2024-12-29] MEDS: CARDIZEM CD 120 MG PO (08:59)
--- NOTE | 2024-12-29 10:02 | W.PN.PUL.V3 ---
Today's Communication / Plan
-
Wean oxygen
Increase activity
Prednisone 50 mg with slow taper
BiPAP at night if tolerated
Assessment
-
This is a 84-year-old male with past medical history significant for COPD on 2 L home O2, ongoing tobacco use, paroxysmal atrial fibrillation, hypertension, CHF who presented to the emergency room with shortness of breath. Patient required 6 L of
supplemental oxygen at admission and in view of respiratory distress was scheduled to be started on PAP therapy. In the emergency room troponin was negative, BNP was 400. ECG showed normal sinus rhythm at a rate of 90 with right bundle branch
block which is unchanged from prior, chest x-ray is completely clear. COVID test negative, influenza negative, CBC was unremarkable electrolytes BUN/creatinine were also stable except for a bicarb of 37 which is similar to his prior elevated bicarb
of 35. Chest x-ray without evidence of active pneumonia. Patient was brought to ICU for possible need for positive airway pressure therapy. Pulmonary consultation was requested for further recommendations..
Acute on chronic hypoxic and hypercapnic respiratory failure
AECOPD- on End stage COPD Hx
Small pericardial effusion on CT
Conditions present prior to admission:
[facility] 03-09 to : AECOPD. Again run out of nebulized BDs. O2 return to baseline 2L, d/c on prednisone taper
[facility] 11-29 to for AECOPD in suspected stage IV COPD, received ceftriaxone 3 d course by adm rekha, received tapering CSs.
Noted he run out of albuterol nebs due to frequent use due to uncontrolled dyspnea, could afford only half month supply
Chronic hypoxemic respiratory failure, suspected chronic hypercapnia (chronically elevated total serum CO2)
COVID illness, [facility] 01-24 to
Severe COPD, latest baseline from 2 to 2.5 L [employer]
Last seen in office-[facility] 04/01/23: FVC 1.02/28%, FEV1 0.26/10%, ratio 26%
6MWT confirms the need for 3 L O2 with ambulation.
History of E. coli bacteremia due to suspected biliary source 06/2021
Dilated CBD 1.8cm
Refused MRI testing due to refusal for mask use
H/o Prostate CA s/p XRT 2013
Chronic hypercarbia
Cholecystectomy
Chronic LILIBETH edema, mild
Obesity
Tobacco dependence: states quit 1 wk [employer], states commitment to smoking cessation
Plan
Respiratory status slowly improving-severe oxygen dependent COPD with acute decompensation-chronic hypercapnia.
Supplemental oxygen as needed-attempt to wean-on 2.5 L at home-currently on 8 L mid flow
Nebulizers-dual nebs and budesonide
Mucolytic's
Aspiration precautions per protocol
Mucus clearing devices encouraged
Decadron changed to prednisone with slow taper
BiPAP at night-not tolerating-according to nursing rips it off after 15 minutes and states that he does not need it-we will not try to arrange as an outpatient
Cultures reviewed.
Status post antibiotics-observe off antibiotics..
Ongoing smoking cessation counseling.
DVT prophylaxis
GI prophylaxis-on pantoprazole.
Nutrition
Early mobilization.
Reviewed with case management-no needs to set up BiPAP as an outpatient-refusing as an inpatient
Outpatient pulmonary follow-sees Dr. Jesus
Diagnostic Data
ECHO: Left ventricular ejection fraction is 65-70% by visual assessment. Normal regional wall motion. right ventricular size. Low normal right ventricular systolic function.
Aortic sclerosis without stenosis.Trace tricuspid regurgitation. Estimated pulmonary artery pressure of 20-25 mmHg. Compared to previous echo on 01/24/2022, no significant change in overall cardiac function. The right ventricle is now enlarged.
CXR 12/21/24- The lungs appear clear. The lungs appear hyperinflated, suggesting COPD. Cardiac silhouette and vascular markings appear within normal limits.
CXR 05/13/24- Findings suggesting mild pulmonary interstitial edema.
CXRs 05-31-23, c/w 03-09 and 11-29-22. No pulmonary infiltrates. Somewhat prominent breast shadows
Chest CT: 12/24/24- No acute disease of the chest. No evidence of pulmonary embolus. Small pericardial effusion. Findings consistent with moderate emphysematous disease.
Mild right upper lobe atelectasis versus scarring.
TTE 01-24-22 CONCLUSIONS: Normal left ventricular size, wall thickness and systolic function. No regional wall motion abnormalities are seen. LV ejection fraction is 65-70% by visual assessment. Diastolic function indeterminate. Normal right
ventricular size and function. Normal atria. Aortic sclerosis without stenosis. No other significant valve abnormalities were observed. Small pericardial effusion without evidence of hemodynamic compromise. No evidence of pulmonary hypertension. No
prior study available for comparison.
LILIBETH doppler 01-24-22: negative
[place] 04/01/23: FVC 1.02/28%, FEV1 0.26/10%, ratio 26%, significant BD response in FEV1 (27%). Post BD results FVC 0.99/27%, FEV1 0.33/13%, ratio 34%. Very severe obstruction and suggestive of severe restrictive pattern.
Subjective Data
-
Date of Service:
Date of Service: December 29, 2024
Chief Complaint: Pulmonary Follow Up and Dyspnea Follow Up
Subjective:
Feels better, tolerated BiPAP at night, less short of breath, no chest pain, productive cough or abdominal pain
Review of Systems
General: Other (Per HPI)
Objective Data
Data Reviewed
Vital Signs / I&O:
Vital Signs
Temp Pulse Resp BP Pulse Ox
97.7 F 76 18 136/77 96
12/29/24 07:37 12/29/24 08:59 12/29/24 07:24 12/29/24 08:59 12/29/24 07:24
Intake and Output
12/28/24 12/29/24 12/30/24
06:59 06:59 06:59
Intake Total 680 / 680
Output Total 1400 / 1400 550 / 550
Balance -720 / -720 -550 / -550
SaO2: 96
Nasal Cannula flow liters per minute: 8
Physical Exam
General: Respiratory Distress (n) and Comfortable
HEENT: Normocephalic and Anicteric
Cardiovascular: Regular Rhythm
Respiratory: Wheeze (Minimal wheezing end expiratory), Crackles ( rare basilar), Non-Labored Respirations and Accessory Resp Muscle Use (n)
GI: Soft and Non Distended
Neurology: Awake, Alert and No Motor Deficits
Skin: Warm, Good Color, Cyanosis (n) and Jaundice
Labs/Micro/Reports
Lab Data
12/29/24 05:23
12/29/24 05:23
--- NOTE | 2024-12-29 12:27 | VNURNOTE ---
Confirmed that patient is current with [facility]. Spoke with Olivia at [employer]. His baseline 02 is 2L. He has a stationary concentrator at home that goes up to max of 5L. Per Olivia, if needed higher concentrator, will need new home 02 testing,
medical necessity note and Rx. Per Olivia it will take 48 hours to process and arrange delivery. Norberto Greenwood updated. [employer] .
--- NOTE | 2024-12-29 15:16 | W.PN.HOSP.TC ---
Today's Communication/Plan
-
Prednisone taper
Home O2 eval
Wean O2 as tolerated
BiPAP at night
Assessment / Plan
Assessment / Plan
84-year-old male with past medical history significant for COPD on 2 L home O2, ongoing tobacco use, proximal atrial fibrillation, hypertension, CHF; presented to the emergency department with shortness of breath.
Patient normally uses 2L but not continuously. He reports that he has been having shortness of breath for approximately 2 days. He also had a cough productive of some sputum. Nausea but no vomiting.
He denies having any chest pain. He denies orthopnea or PND. He denies any lower extremity swelling. He has not had any exertional chest pain. He denies any known sick contacts.
On arrival in the emergency department he was requiring 6 L of oxygen and satting at around 96%. Blood pressure was 130/70 with a pulse of 100, respiratory was 30. Troponin was negative, BNP was 400. ECG showed normal sinus rhythm at a rate of 90
with right bundle branch block which is unchanged from prior, chest x-ray is completely clear. COVID test negative, influenza negative, CBC was unremarkable. bicarb of 37 which is similar to his prior elevated bicarb of 35.
A/P:
# COPD Exacerbation
# Acute on chronic hypoxic and hypercapnic respiratory failure,
cont to wean o2, baseline 2L NC
Cont NIV qhs and PRN BIPAP use
completed azithromycin course
Switch iv Decadron to po prednisone
Duonebs
CT Chest also negative for PE, showed No acute disease of the chest. No evidence of pulmonary embolus. Findings consistent with moderate emphysematous disease.
cough suppression and antiemetics prn
Acapella , IS use when awake
pulmonary on board
At discharge, recommend triple therapy with LAMA/LABA and inhaled corticosteroid
f/u pulmonary outpot
# active smoking
extensive counselling provided
Pt declined nicotine patch
#Hyponatremia
-monitor
-SIADH
#Dysphagia
-patient declines to use modified diet and understands risks
# AFIB - rate is sinus and well controlled, not currently on ac
continue home diltiazem
aspirin 81 daily
continue statin
-more than likely not on anticoag due to fall risk
# BPH
continue tamsulosin
#small cardiac effusion on CT
-f/u cards outpt
DVT PPX - Lovenox sq
Code status - Full code
Dispo: PT OT eval
Anticipated Discharge: Within 24 hours
Subjective/Interval History
-
Date of Service: December 29, 2024
10 L, sitting in chair
Objective Data
-
Labs:
Laboratory Results
12/29/24
05:23
WBC 8.4
Hgb 13.5
Hct 42.9
Plt Count 114 L
Sodium 133 L
Potassium 4.4
Chloride 90 L
Carbon Dioxide 35 H
BUN 24 H
Creatinine 0.6 L
Glucose 180 H
Calcium 8.3 L
Total Bilirubin 0.7
AST 24
ALT 34
Alkaline Phosphatase 82
Vital Signs:
Vital Signs
Temp Pulse Resp BP Pulse Ox
97.6 F 97 22 136/77 92
12/29/24 15:01 12/29/24 15:01 12/29/24 15:01 12/29/24 08:59 12/29/24 15:01
I&O
12/28/24 12/29/24 12/30/24
06:59 06:59 06:59
Intake Total 680 / 680
Output Total 1400 / 1400 550 / 550
Balance -720 / -720 -550 / -550
Review of Systems
-
History Source: Patient
All other systems: Not reviewed unless documented
Physical Exam
-
General: Well Developed, Well Nourished, No Apparent Distress and Comfortable
HEENT: Normocephalic, Atraumatic, Nose Appears Normal and Ears Appear Normal
Respiratory: Clear to Auscultation
Cardiac: Regular Rhythm and S1/S2
GI: Soft, Nontender and Nondistended
Musculoskeletal: No Clubbing and No Cyanosis
Skin: Warm and Dry
Neuro: Awake and Alert
Psych: Calm
[2024-12-29] MEDS: OCEAN, SALINE MIST 2 SPRAYS NASAL (16:45)
--- NOTE | 2024-12-29 19:30 | PTCARENOTE ---
Patient with 16 beat run of V-tach while sleeping. Patient assessed, no pain or discomfort noted. ROASTER SUPERVISOR made aware and hospitalist as well. CODE status being addressed.
--- NOTE | 2024-12-29 22:00 | PTCARENOTE ---
Assumed care of pt from mike RN. Pt aaox3. PT inc of bowel, hygiene completed. NSR on monitor. 90% on 8L MFNC. Pt resting in bed with call rose in reach and bed alarm on.
[2024-12-30] VITALS (12 sets, daily range): BP systolic 102–148; BP diastolic 58–74; PULSE 2–92; BMI 21.1
[2024-12-30 06:31] LABS: Hematocrit 43.9 % (39.0-52.0); Hemoglobin 13.8 g/dL (13.0-18.0); Mean Corp Hgb Conc. 31.4 g/dL (33.0-37.0); Mean Corpuscular Hgb 30.2 pg (27.0-31.0); Mean Corpuscular Volume 96.1 fL (80.0-94.0); Mean Platelet Volume 10.7 fL (7.4-10.4); Platelet Count 117 10^3/uL (130-400); Red Blood Cell Count 4.57 10^6/uL (4.70-6.10); Red Cell Dist. Width 11.7 % (11.5-14.5); White Blood Cell Count 9.5 10^3/uL (4.8-10.8)
[2024-12-30 06:34] LABS: ALT (SGPT) 36 U/L (0-50); AST (SGOT) 21 U/L (17-59); Albumin 3.3 g/dl (3.5-5.0); Alkaline Phosphatase 96 U/L (38-126); Blood Urea Nitrogen 26 mg/dl (9-20); Calcium 8.4 mg/dl (8.4-10.2); Chloride 92 mmol/L (98-107); Estimated Creatinine Clearance 82 ml/min; Glucose 152 mg/dl (70-99); Sodium 136 mmol/L (135-145); Total Bilirubin 0.7 mg/dl (0.2-1.3); Total Protein 5.5 g/dl (6.3-8.2); eGFR > 60.00
[2024-12-30 06:44] LABS: Carbon Dioxide 35 mmol/L (22-30)
[2024-12-30] MEDS: PULMICORT 0.5 MG INH (07:16)
[2024-12-30] MEDS: DUONEB 3 ML INH ×4 (07:16→19:43)
[2024-12-30] MEDS: FLOMAX 0.4 MG PO ×2 (08:31→20:34)
[2024-12-30] MEDS: DELTASONE 50 MG PO (08:31)
[2024-12-30] MEDS: NEURONTIN 300 MG PO ×3 (08:31→20:34)
[2024-12-30] MEDS: LIPITOR 40 MG PO (08:31)
[2024-12-30] MEDS: PROTONIX 40 MG PO (08:31)
[2024-12-30] MEDS: LOW STRENGTH ASPIRIN 81 MG PO (08:31)
[2024-12-30] MEDS: CARDIZEM CD 120 MG PO (08:31)
[2024-12-30] MEDS: MUCINEX 600 MG PO ×2 (08:31→20:34)
--- NOTE | 2024-12-30 09:02 | W.PN.PUL.V3 ---
Today's Communication / Plan
-
Prednisone slow taper
Wean FiO2
Increase activity
Transfer out of IMU if able to wean FiO2
Assessment
-
This is a 84-year-old male with past medical history significant for COPD on 2 L home O2, ongoing tobacco use, paroxysmal atrial fibrillation, hypertension, CHF who presented to the emergency room with shortness of breath. Patient required 6 L of
supplemental oxygen at admission and in view of respiratory distress was scheduled to be started on PAP therapy. In the emergency room troponin was negative, BNP was 400. ECG showed normal sinus rhythm at a rate of 90 with right bundle branch
block which is unchanged from prior, chest x-ray is completely clear. COVID test negative, influenza negative, CBC was unremarkable electrolytes BUN/creatinine were also stable except for a bicarb of 37 which is similar to his prior elevated bicarb
of 35. Chest x-ray without evidence of active pneumonia. Patient was brought to ICU for possible need for positive airway pressure therapy. Pulmonary consultation was requested for further recommendations..
Acute on chronic hypoxic and hypercapnic respiratory failure
AECOPD- on End stage COPD Hx
Small pericardial effusion on CT
Conditions present prior to admission:
[facility] 03-09 to : AECOPD. Again run out of nebulized BDs. O2 return to baseline 2L, d/c on prednisone taper
[facility] 11-29 to for AECOPD in suspected stage IV COPD, received ceftriaxone 3 d course by adm rekha, received tapering CSs.
Noted he run out of albuterol nebs due to frequent use due to uncontrolled dyspnea, could afford only half month supply
Chronic hypoxemic respiratory failure, suspected chronic hypercapnia (chronically elevated total serum CO2)
COVID illness, [facility] 01-24 to
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
Last seen in office-[facility] 04/01/23: FVC 1.02/28%, FEV1 0.26/10%, ratio 26%
6MWT confirms the need for 3 L O2 with ambulation.
History of E. coli bacteremia due to suspected biliary source 06/2021
Dilated CBD 1.8cm
Refused MRI testing due to refusal for mask use
H/o Prostate CA s/p XRT 2013
Chronic hypercarbia
Cholecystectomy
Chronic LILIBETH edema, mild
Obesity
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
Plan
Respiratory status slowly improving-severe oxygen dependent COPD with acute decompensation-chronic hypercapnia.
Supplemental oxygen as needed-attempt to wean-on 2.5 L at home-continues on 8 L mid flow-95% saturation-asked nursing to attempt FiO2 wean
Nebulizers-dual nebs and budesonide
Mucolytic's
Aspiration precautions per protocol
Mucus clearing devices encouraged
Prednisone 50 mg taper
BiPAP at night-intermittently tolerating-according to nursing rips it off after 15 minutes and states that he does not need it--reportedly last night tolerated for several hours-'it does not help' we will not try to arrange as an outpatient
Cultures reviewed.
Status post antibiotics-observe off antibiotics
Ongoing smoking cessation counseling.
DVT prophylaxis
GI prophylaxis-on pantoprazole.
Nutrition
Early mobilization.
Reviewed with case management-no needs to set up BiPAP as an outpatient-refusing as an inpatient
Outpatient pulmonary follow-sees Dr. Jesus
Diagnostic Data
ECHO: Left ventricular ejection fraction is 65-70% by visual assessment. Normal regional wall motion. right ventricular size. Low normal right ventricular systolic function.
Aortic sclerosis without stenosis.Trace tricuspid regurgitation. Estimated pulmonary artery pressure of 20-25 mmHg. Compared to previous echo on 01/24/2022, no significant change in overall cardiac function. The right ventricle is now enlarged.
CXR 12/21/24- The lungs appear clear. The lungs appear hyperinflated, suggesting COPD. Cardiac silhouette and vascular markings appear within normal limits.
CXR 05/13/24- Findings suggesting mild pulmonary interstitial edema.
CXRs 05-31-23, c/w 03-09 and 11-29-22. No pulmonary infiltrates. Somewhat prominent breast shadows
Chest CT: 12/24/24- No acute disease of the chest. No evidence of pulmonary embolus. Small pericardial effusion. Findings consistent with moderate emphysematous disease.
Mild right upper lobe atelectasis versus scarring.
TTE 01-24-22 CONCLUSIONS: Normal left ventricular size, wall thickness and systolic function. No regional wall motion abnormalities are seen. LV ejection fraction is 65-70% by visual assessment. Diastolic function indeterminate. Normal right
ventricular size and function. Normal atria. Aortic sclerosis without stenosis. No other significant valve abnormalities were observed. Small pericardial effusion without evidence of hemodynamic compromise. No evidence of pulmonary hypertension. No
prior study available for comparison.
LILIBETH doppler 01-24-22: negative
[place] 04/01/23: FVC 1.02/28%, FEV1 0.26/10%, ratio 26%, significant BD response in FEV1 (27%). Post BD results FVC 0.99/27%, FEV1 0.33/13%, ratio 34%. Very severe obstruction and suggestive of severe restrictive pattern.
Subjective Data
-
Date of Service:
Date of Service: December 30, 2024
Chief Complaint: Pulmonary Follow Up and Dyspnea Follow Up
Subjective:
Feels better, still on mid flow oxygen, desaturates but recovers within a minute or 2, no chest pain, chest congestion, productive cough
Review of Systems
General: Other (Per HPI)
Objective Data
Data Reviewed
Vital Signs / I&O:
Vital Signs
Temp Pulse Resp BP Pulse Ox
97.8 F 87 24 131/67 90
12/30/24 07:22 12/30/24 07:19 12/30/24 07:19 12/30/24 06:00 12/30/24 07:19
Intake and Output
12/29/24 12/30/24 12/31/24
06:59 06:59 06:59
Intake Total 500 / 500
Output Total 550 / 550 900 / 900 375 / 375
Balance -550 / -550 -400 / -400 -375 / -375
SaO2: 90
Nasal Cannula flow liters per minute: 10
Physical Exam
General: Respiratory Distress (n) and Comfortable
HEENT: Normocephalic and Anicteric
Cardiovascular: Regular Rhythm
Respiratory: Wheeze (Minimal wheezing end expiratory), Crackles ( rare basilar), Non-Labored Respirations and Accessory Resp Muscle Use (n)
GI: Soft and Non Distended
Neurology: Awake, Alert and No Motor Deficits
Skin: Warm, Good Color, Cyanosis (n) and Jaundice
Labs/Micro/Reports
Lab Data
12/30/24 05:32
12/30/24 05:32
--- NOTE | 2024-12-30 11:33 | PN.CDI ---
CDI
- -
CDI:
Physician Documentation Request
Admit Date: 12/22/24 04:12
Dear Doctor Rafa,
Clinical Indicators:
Patient admitted with COPD exacerbation.
12/28 [facility] RN note, 'Patient seen for HAPI for R buttocks stage 2 pressure injury. Patient confirmed he's had an open area there prior to admission.'
Wound care ordered: Silicone border foam dressing/Barrier ointment TID
Physician documentation of the type and location of wounds is required for compliant documentation. Based on the above clinical findings and your assessment, please provide the following in your progress note:
Right Buttock Stage 2 Pressure injury POA
Other, please specify
Pressure Ulcer Stages:
- Stage 1 - Skin intact, non-blanchable redness
- Stage 2 - Partial thickness loss of dermis, includes intact or open blister
- Stage 3 - Full thickness tissue not including bone, tendon or muscle
- Stage 4 - Full thickness tissue loss, including exposed bone, tendon or muscle
- Unstageable - Full thickness loss in which the base of the ulcer is covered by slough (yellow, noel, reed, green or brown) and/or eschar (noel, brown or black) in the wound bed.
- Unable to determine
Use of terms such as suspected, likely, concern for, or probable (associated with a specific diagnosis that is being evaluated, monitored, or treated as if it exists) are acceptable and can be coded in the inpatient setting, when documented at the
time of discharge.
Thank you,
Jennifer Hopkins RN BSN
CDI Specialist
available via tiger text
Please use your independent medical judgment in providing your response.
*Source: National Pressure Ulcer Advisory Panel (NPUAP)
--- NOTE | 2024-12-30 14:58 | W.PN.HOSP.TC ---
Addendum entered and electronically signed by Fidel Craig MD 12/30/24 16:34:
Right Buttock Stage 2 Pressure injury POA
Original Note:
Today's Communication/Plan
-
Wean O2, can downgrade to telemetry if maintaining on 6 L nasal cannula
Slow prednisone taper
Assessment / Plan
Assessment / Plan
84-year-old male with past medical history significant for COPD on 2 L home O2, ongoing tobacco use, proximal atrial fibrillation, hypertension, CHF; presented to the emergency department with shortness of breath.
Patient normally uses 2L but not continuously. He reports that he has been having shortness of breath for approximately 2 days. He also had a cough productive of some sputum. Nausea but no vomiting.
He denies having any chest pain. He denies orthopnea or PND. He denies any lower extremity swelling. He has not had any exertional chest pain. He denies any known sick contacts.
On arrival in the emergency department he was requiring 6 L of oxygen and satting at around 96%. Blood pressure was 130/70 with a pulse of 100, respiratory was 30. Troponin was negative, BNP was 400. ECG showed normal sinus rhythm at a rate of 90
with right bundle branch block which is unchanged from prior, chest x-ray is completely clear. COVID test negative, influenza negative, CBC was unremarkable. bicarb of 37 which is similar to his prior elevated bicarb of 35.
A/P:
# COPD Exacerbation
# Acute on chronic hypoxic and hypercapnic respiratory failure,
cont to wean o2, baseline 2L NC
Cont NIV qhs and PRN BIPAP use
completed azithromycin course
Switch iv Decadron to po prednisone
Duonebs
CT Chest also negative for PE, showed No acute disease of the chest. No evidence of pulmonary embolus. Findings consistent with moderate emphysematous disease.
cough suppression and antiemetics prn
Acapella , IS use when awake
pulmonary on board
At discharge, recommend triple therapy with LAMA/LABA and inhaled corticosteroid
f/u pulmonary outpot
# active smoking
extensive counselling provided
Pt declined nicotine patch
#Hyponatremia
-monitor
-SIADH
#Dysphagia
-patient declines to use modified diet and understands risks
# AFIB - rate is sinus and well controlled, not currently on ac
continue home diltiazem
aspirin 81 daily
continue statin
-more than likely not on anticoag due to fall risk
# BPH
continue tamsulosin
#small cardiac effusion on CT
-f/u cards outpt
DVT PPX - Lovenox sq
Code status - Full code
Dispo: PT OT eval
Anticipated Discharge: 24 - 48 hours
Subjective/Interval History
-
Date of Service: December 30, 2024
No acute events
Objective Data
-
Labs:
Laboratory Results
12/30/24
05:32
WBC 9.5
Hgb 13.8
Hct 43.9
Plt Count 117 L
Sodium 136
Potassium 4.0
Chloride 92 L
Carbon Dioxide 35 H
BUN 26 H
Creatinine 0.5 L
Glucose 152 H
Calcium 8.4
Total Bilirubin 0.7
AST 21
ALT 36
Alkaline Phosphatase 96
Vital Signs:
Vital Signs
Temp Pulse Resp BP Pulse Ox
97.7 F 99 25 102/74 91
12/30/24 11:15 12/30/24 14:00 12/30/24 14:00 12/30/24 12:00 12/30/24 14:00
I&O
12/29/24 12/30/24 12/31/24
06:59 06:59 06:59
Intake Total 500 / 500
Output Total 550 / 550 900 / 900 375 / 375
Balance -550 / -550 -400 / -400 -375 / -375
Review of Systems
-
History Source: Patient
All other systems: Not reviewed unless documented
Data Reviewed
-
Diagnostic Radiology: Report Reviewed by me
CT Scan: Report Reviewed by me
Labs: Labs Reviewed by me
--- NOTE | 2024-12-30 16:23 | RESPNOTE ---
Patient has an order for Home O2 Assessment, patient is currently on Midflow 8 L and has home oxygen 2.5 L as per patients statement. Ambulatory pulse oximetry done with patient and he desaturated during walking and the flow has to increase upto 4
Lpm nasal cannula during ambulation to keep the SpO2 at least 89%. Patient is back on bed without any incidents.
[2024-12-30] MEDS: LOVENOX 40 MG SC (17:49)
--- NOTE | 2024-12-30 23:41 | PTCARENOTE ---
Assumed care of pt from mike RN. Pt aaox3, but forgetful. Pt had large bowel movement. Complete bed change and hygiene completed. NSR on monitor. 90% on 6L NC. Pt resting in bed with call rose in reach and bed alarm on.
[2024-12-31] VITALS (15 sets, daily range): BP systolic 109–146; BP diastolic 57–91; PULSE 2–97; BMI 21.1
[2024-12-31 06:24] LABS: Hematocrit 42.6 % (39.0-52.0); Hemoglobin 13.6 g/dL (13.0-18.0); Mean Corp Hgb Conc. 31.9 g/dL (33.0-37.0); Mean Corpuscular Hgb 30.6 pg (27.0-31.0); Mean Corpuscular Volume 95.7 fL (80.0-94.0); Mean Platelet Volume 10.8 fL (7.4-10.4); Platelet Count 125 10^3/uL (130-400); Red Blood Cell Count 4.45 10^6/uL (4.70-6.10); Red Cell Dist. Width 11.8 % (11.5-14.5); White Blood Cell Count 10.5 10^3/uL (4.8-10.8)
[2024-12-31 06:56] LABS: ALT (SGPT) 36 U/L (0-50); AST (SGOT) 18 U/L (17-59); Alkaline Phosphatase 99 U/L (38-126); Blood Urea Nitrogen 26 mg/dl (9-20); Calcium 8.5 mg/dl (8.4-10.2); Chloride 96 mmol/L (98-107); Estimated Creatinine Clearance 82 ml/min; Glucose 136 mg/dl (70-99); Potassium 3.9 mmol/L (3.5-5.1); Sodium 138 mmol/L (135-145); Total Bilirubin 0.6 mg/dl (0.2-1.3); Total Protein 5.2 g/dl (6.3-8.2); eGFR > 60.00
[2024-12-31 07:05] LABS: Carbon Dioxide 37 mmol/L (22-30)
[2024-12-31] MEDS: DUONEB 3 ML INH ×4 (07:45→19:49)
[2024-12-31] MEDS: MUCINEX 600 MG PO ×2 (08:38→20:53)
[2024-12-31] MEDS: CARDIZEM CD 120 MG PO (08:38)
[2024-12-31] MEDS: DELTASONE 50 MG PO (08:38)
[2024-12-31] MEDS: FLOMAX 0.4 MG PO ×2 (08:38→20:53)
[2024-12-31] MEDS: PROTONIX 40 MG PO (08:38)
[2024-12-31] MEDS: NEURONTIN 300 MG PO ×3 (08:38→20:53)
[2024-12-31] MEDS: LOW STRENGTH ASPIRIN 81 MG PO (08:38)
[2024-12-31] MEDS: LIPITOR 40 MG PO (08:38)
--- NOTE | 2024-12-31 09:19 | W.PN.PUL.V3 ---
Today's Communication / Plan
-
wean FiO2.
BiPAP as needed.
No change in prednisone.
Continue mucolytic so nebulizers
Assessment
-
This is a 84-year-old male with past medical history significant for COPD on 2 L home O2, ongoing tobacco use, paroxysmal atrial fibrillation, hypertension, CHF who presented to the emergency room with shortness of breath. Patient required 6 L of
supplemental oxygen at admission and in view of respiratory distress was scheduled to be started on PAP therapy. In the emergency room troponin was negative, BNP was 400. ECG showed normal sinus rhythm at a rate of 90 with right bundle branch
block which is unchanged from prior, chest x-ray is completely clear. COVID test negative, influenza negative, CBC was unremarkable electrolytes BUN/creatinine were also stable except for a bicarb of 37 which is similar to his prior elevated bicarb
of 35. Chest x-ray without evidence of active pneumonia. Patient was brought to ICU for possible need for positive airway pressure therapy. Pulmonary consultation was requested for further recommendations..
Acute on chronic hypoxic and hypercapnic respiratory failure
AECOPD- on End stage COPD Hx
Small pericardial effusion on CT
Conditions present prior to admission:
[facility] 03-09 to : AECOPD. Again run out of nebulized BDs. O2 return to baseline 2L, d/c on prednisone taper
[facility] 11-29 to for AECOPD in suspected stage IV COPD, received ceftriaxone 3 d course by adm rekha, received tapering CSs.
Noted he run out of albuterol nebs due to frequent use due to uncontrolled dyspnea, could afford only half month supply
Chronic hypoxemic respiratory failure, suspected chronic hypercapnia (chronically elevated total serum CO2)
COVID illness, [facility] 01-24 to
Severe COPD, latest baseline from 2 to 2.5 L ACCESS TECH
Last seen in office-[facility] 04/01/23: FVC 1.02/28%, FEV1 0.26/10%, ratio 26%
6MWT confirms the need for 3 L O2 with ambulation.
History of E. coli bacteremia due to suspected biliary source 06/2021
Dilated CBD 1.8cm
Refused MRI testing due to refusal for mask use
H/o Prostate CA s/p XRT 2013
Chronic hypercarbia
Cholecystectomy
Chronic LILIBETH edema, mild
Obesity
Tobacco dependence: states quit 1 wk ACCESS TECH, states commitment to smoking cessation
Plan
Respiratory status slowly improving-severe oxygen dependent COPD with acute decompensation-chronic hypercapnia.
Supplemental oxygen as needed-attempt to wean-on 2.5 L at home-continues on 8 L mid flow- 94% saturation-asked nursing to attempt FiO2 wean-okay with saturations 88% or greater
Nebulizers-dual nebs and budesonide
Mucolytic's
Aspiration precautions per protocol
Mucus clearing devices encouraged
Prednisone 50 mg taper
BiPAP at night-intermittently tolerating-according to nursing rips it off after 15 minutes and states that he does not need it--reportedly last night tolerated for several hours-'it does not help' we will not try to arrange as an outpatient
Cultures reviewed.
Status post antibiotics-observe off antibiotics
Ongoing smoking cessation counseling.
DVT prophylaxis-on Lovenox
GI prophylaxis-on pantoprazole.
Nutrition
Early mobilization..
Reviewed with nursing
Reviewed with case management-no needs to set up BiPAP as an outpatient-refusing as an inpatient
Outpatient pulmonary follow-sees Dr. Jesus
Diagnostic Data
ECHO: Left ventricular ejection fraction is 65-70% by visual assessment. Normal regional wall motion. right ventricular size. Low normal right ventricular systolic function.
Aortic sclerosis without stenosis.Trace tricuspid regurgitation. Estimated pulmonary artery pressure of 20-25 mmHg. Compared to previous echo on 01/24/2022, no significant change in overall cardiac function. The right ventricle is now enlarged.
CXR 12/21/24- The lungs appear clear. The lungs appear hyperinflated, suggesting COPD. Cardiac silhouette and vascular markings appear within normal limits.
CXR 05/13/24- Findings suggesting mild pulmonary interstitial edema.
CXRs 05-31-23, c/w 03-09 and 11-29-22. No pulmonary infiltrates. Somewhat prominent breast shadows
Chest CT: 12/24/24- No acute disease of the chest. No evidence of pulmonary embolus. Small pericardial effusion. Findings consistent with moderate emphysematous disease.
Mild right upper lobe atelectasis versus scarring.
TTE 01-24-22 CONCLUSIONS: Normal left ventricular size, wall thickness and systolic function. No regional wall motion abnormalities are seen. LV ejection fraction is 65-70% by visual assessment. Diastolic function indeterminate. Normal right
ventricular size and function. Normal atria. Aortic sclerosis without stenosis. No other significant valve abnormalities were observed. Small pericardial effusion without evidence of hemodynamic compromise. No evidence of pulmonary hypertension. No
prior study available for comparison.
LILIBETH doppler 01-24-22: negative
[facility] 04/01/23: FVC 1.02/28%, FEV1 0.26/10%, ratio 26%, significant BD response in FEV1 (27%). Post BD results FVC 0.99/27%, FEV1 0.33/13%, ratio 34%. Very severe obstruction and suggestive of severe restrictive pattern.
Subjective Data
-
Date of Service:
Date of Service: December 31, 2024
Chief Complaint: Pulmonary Follow Up and Dyspnea Follow Up
Subjective:
Feels better, still on significant high FiO2, no complete chest pain, chest tightness, mucous, Nain Umaña and tolerated BiPAP most of the night
Review of Systems
General: Other ( per HPI)
Objective Data
Data Reviewed
Vital Signs / I&O:
Vital Signs
Temp Pulse Resp BP Pulse Ox
97.6 F 89 20 125/59 91
12/31/24 07:40 12/31/24 08:38 12/31/24 07:48 12/31/24 08:38 12/31/24 07:48
Intake and Output
12/30/24 12/31/24 01/01/25
06:59 06:59 06:59
Intake Total 500 / 500
Output Total 900 / 900 375 / 375 300 / 300
Balance -400 / -400 -375 / -375 -300 / -300
SaO2: 91
Nasal Cannula flow liters per minute: 6
Physical Exam
General: Respiratory Distress (n) and Comfortable
HEENT: Normocephalic and Anicteric
Cardiovascular: Regular Rhythm
Respiratory: Wheeze (Minimal wheezing end expiratory), Crackles ( rare basilar), Non-Labored Respirations and Accessory Resp Muscle Use (n)
GI: Soft and Non Distended
Neurology: Awake, Alert and No Motor Deficits
Skin: Warm, Good Color, Cyanosis (n) and Jaundice
Labs/Micro/Reports
Lab Data
12/31/24 06:00
12/31/24 06:00
[2024-12-31] MEDS: METAMUCIL, KONSYL 1 PACKET PO (12:28)
--- NOTE | 2024-12-31 14:05 | W.PN.HOSP.TC ---
Today's Communication/Plan
-
Wean O2, can downgrade to telemetry if maintaining on 6 L nasal cannula
Slow prednisone taper
Assessment / Plan
Assessment / Plan
84-year-old male with past medical history significant for COPD on 2 L home O2, ongoing tobacco use, proximal atrial fibrillation, hypertension, CHF; presented to the emergency department with shortness of breath.
Patient normally uses 2L but not continuously. He reports that he has been having shortness of breath for approximately 2 days. He also had a cough productive of some sputum. Nausea but no vomiting.
He denies having any chest pain. He denies orthopnea or PND. He denies any lower extremity swelling. He has not had any exertional chest pain. He denies any known sick contacts.
On arrival in the emergency department he was requiring 6 L of oxygen and satting at around 96%. Blood pressure was 130/70 with a pulse of 100, respiratory was 30. Troponin was negative, BNP was 400. ECG showed normal sinus rhythm at a rate of 90
with right bundle branch block which is unchanged from prior, chest x-ray is completely clear. COVID test negative, influenza negative, CBC was unremarkable. bicarb of 37 which is similar to his prior elevated bicarb of 35.
A/P:
# COPD Exacerbation
# Acute on chronic hypoxic and hypercapnic respiratory failure,
cont to wean o2, baseline 2L NC
Cont NIV qhs and PRN BIPAP use
completed azithromycin course
Switch iv Decadron to po prednisone
Duonebs
CT Chest also negative for PE, showed No acute disease of the chest. No evidence of pulmonary embolus. Findings consistent with moderate emphysematous disease.
cough suppression and antiemetics prn
Acapella , IS use when awake
pulmonary on board
At discharge, recommend triple therapy with LAMA/LABA and inhaled corticosteroid
f/u pulmonary outpot
# active smoking
extensive counselling provided
Pt declined nicotine patch
#Hyponatremia
-monitor
-SIADH
#Dysphagia
-patient declines to use modified diet and understands risks
# AFIB - rate is sinus and well controlled, not currently on ac
continue home diltiazem
aspirin 81 daily
continue statin
-more than likely not on anticoag due to fall risk
# BPH
continue tamsulosin
#small cardiac effusion on CT
-f/u cards outpt
DVT PPX - Lovenox sq
Code status - Full code
Dispo: PT OT eval
Anticipated Discharge: > 48 hours
Subjective/Interval History
-
Date of Service: December 31, 2024
Require higher level of oxygen today
Objective Data
-
Labs:
Laboratory Results
12/31/24
06:00
WBC 10.5
Hgb 13.6
Hct 42.6
Plt Count 125 L
Sodium 138
Potassium 3.9
Chloride 96 L
Carbon Dioxide 37 H
BUN 26 H
Creatinine 0.6 L
Glucose 136 H
Calcium 8.5
Total Bilirubin 0.6
AST 18
ALT 36
Alkaline Phosphatase 99
Vital Signs:
Vital Signs
Temp Pulse Resp BP Pulse Ox
97.4 F 92 15 130/57 94
12/31/24 11:33 12/31/24 12:00 12/31/24 12:00 12/31/24 12:00 12/31/24 12:00
I&O
12/30/24 12/31/24 01/01/25
06:59 06:59 06:59
Intake Total 500 / 500
Output Total 900 / 900 375 / 375 300 / 300
Balance -400 / -400 -375 / -375 -300 / -300
Review of Systems
-
History Source: Patient
All other systems: Not reviewed unless documented
Physical Exam
-
General: Well Developed, Well Nourished, No Apparent Distress and Comfortable
HEENT: Normocephalic, Atraumatic, Nose Appears Normal and Ears Appear Normal
Respiratory: Clear to Auscultation
Cardiac: Regular Rhythm and S1/S2
GI: Soft, Nontender and Nondistended
Musculoskeletal: No Clubbing and No Cyanosis
Skin: Warm and Dry
Neuro: Awake and Alert
Psych: Calm
Data Reviewed
-
Diagnostic Radiology: Report Reviewed by me
CT Scan: Report Reviewed by me
Labs: Labs Reviewed by me
--- NOTE | 2024-12-31 15:03 | PTCARENOTE ---
Patient AAOx3, forgetful at times. VSS. On 10L midflow, sats maintained >88%, will wean as tolerates. Using cpap for naps. Son at bedside, update provided. Will continue to closely monitor.
[2024-12-31] MEDS: LOVENOX 40 MG SC (17:44)
--- NOTE | 2024-12-31 23:11 | PTCARENOTE ---
Assumed care of pt from dayshift RN. Pt aaox3, but forgetful. NSR on monitor. At start of shift pt was 95% on 10L MFNC. This RN explained to pt that she was lowering it to 8L as his goal is 88%. pt is now 93% on 8L MFNC. When this RN adjusted pt's
oxygen he raised his voice and said 'you are playing with my oxygen too much.' This was the only time oxygen was titrated this shift. Pt appears agitated with all care. Refusing hygiene at this time. Pt resting in bed with call rose in reach and bed
alarm on.
[2025-01-01] VITALS (8 sets, daily range): BP systolic 102–140; BP diastolic 53–84; PULSE 2
[2025-01-01 05:10] LABS: Hemoglobin 13.3 g/dL (13.0-18.0); Mean Corp Hgb Conc. 30.9 g/dL (33.0-37.0); Mean Corpuscular Volume 96.8 fL (80.0-94.0); Mean Platelet Volume 10.4 fL (7.4-10.4); Platelet Count 135 10^3/uL (130-400); Red Blood Cell Count 4.44 10^6/uL (4.70-6.10); Red Cell Dist. Width 11.9 % (11.5-14.5); White Blood Cell Count 8.3 10^3/uL (4.8-10.8)
[2025-01-01 05:46] LABS: ALT (SGPT) 32 U/L (0-50); AST (SGOT) 17 U/L (17-59); Alkaline Phosphatase 94 U/L (38-126); Blood Urea Nitrogen 24 mg/dl (9-20); Calcium 8.4 mg/dl (8.4-10.2); Chloride 93 mmol/L (98-107); Estimated Creatinine Clearance 83 ml/min; Glucose 139 mg/dl (70-99); Potassium 3.7 mmol/L (3.5-5.1); Sodium 139 mmol/L (135-145); Total Bilirubin 0.8 mg/dl (0.2-1.3); Total Protein 5.2 g/dl (6.3-8.2); eGFR > 60.00
[2025-01-01 05:58] LABS: Carbon Dioxide 38 mmol/L (22-30)
[2025-01-01] MEDS: DUONEB 3 ML INH ×3 (07:12→14:48)
[2025-01-01] MEDS: PROTONIX 40 MG PO (07:35)
[2025-01-01] MEDS: LIPITOR 40 MG PO (07:35)
[2025-01-01] MEDS: FLOMAX 0.4 MG PO (07:35)
[2025-01-01] MEDS: CARDIZEM CD 120 MG PO (07:35)
[2025-01-01] MEDS: METAMUCIL, KONSYL 1 PACKET PO (07:35)
[2025-01-01] MEDS: LOW STRENGTH ASPIRIN 81 MG PO (07:35)
[2025-01-01] MEDS: DELTASONE 50 MG PO (07:36)
[2025-01-01] MEDS: MUCINEX 600 MG PO (07:36)
[2025-01-01] MEDS: NEURONTIN 300 MG PO (07:36)
--- NOTE | 2025-01-01 08:17 | PTCARENOTE ---
Patient received from shift foreman. Patient resting comfortably in bed. AAO, VSS. No events noted overnight other than some continued ing. No complaints of pain at this time. Currently on 10L Midflow, wore CPAP overnight. Will continue
to attempt to wean as tolerated. No tests scheduled at this time. Call rose in reach.
--- NOTE | 2025-01-01 08:57 | W.PN.HOSP.TC ---
Today's Communication/Plan
-
cont to slowly wean O2--wears 2L at home
on PO prednisone
on too high O2 to discharge despite his wishes
Assessment / Plan
Assessment / Plan
84-year-old male with past medical history significant for COPD on 2 L home O2, ongoing tobacco use, proximal atrial fibrillation, hypertension, CHF; presented to the emergency department with shortness of breath.
Patient normally uses 2L but not continuously. He reports that he has been having shortness of breath for approximately 2 days. He also had a cough productive of some sputum. Nausea but no vomiting.
He denies having any chest pain. He denies orthopnea or PND. He denies any lower extremity swelling. He has not had any exertional chest pain. He denies any known sick contacts.
On arrival in the emergency department he was requiring 6 L of oxygen and satting at around 96%. Blood pressure was 130/70 with a pulse of 100, respiratory was 30. Troponin was negative, BNP was 400. ECG showed normal sinus rhythm at a rate of 90
with right bundle branch block which is unchanged from prior, chest x-ray is completely clear. COVID test negative, influenza negative, CBC was unremarkable. bicarb of 37 which is similar to his prior elevated bicarb of 35.
A/P:
# COPD Exacerbation
# Acute on chronic hypoxic and hypercapnic respiratory failure,
cont to wean o2, baseline 2L NC --currently on 10L
Cont NIV qhs and PRN BIPAP use
completed azithromycin course
Switch iv Decadron to po prednisone 50 mg daily
[address] Chest also negative for PE, showed No acute disease of the chest. No evidence of pulmonary embolus. Findings consistent with moderate emphysematous disease.
cough suppression and antiemetics prn
Acapella , IS use when awake
pulmonary on board
At discharge, recommend triple therapy with LAMA/LABA and inhaled corticosteroid
f/u pulmonary outpt
# active smoking
extensive counselling provided
Pt declined nicotine patch
#Hyponatremia
-monitor
-SIADH
#Dysphagia
-patient declines to use modified diet and understands risks
# Paroxysmal AFIB - rate is sinus and well controlled, not currently on ac
continue home diltiazem
aspirin 81 daily
continue statin
-more than likely not on anticoag due to fall risk
# BPH
continue tamsulosin
#small cardiac effusion on CT
-f/u cards outpt
DVT PPX - Lovenox sq
Code status - Full code
Dispo: PT OT eval
Anticipated Discharge: > 48 hours
Subjective/Interval History
-
Date of Service: January 01, 2025
pt asking to go home--feels great--on 8-10L O2 with pulse ox 94%
Objective Data
-
Labs:
Laboratory Results
01/01/25
04:49
WBC 8.3
Hgb 13.3
Hct 43.0
Plt Count 135
Sodium 139
Potassium 3.7
Chloride 93 L
Carbon Dioxide 38 H
BUN 24 H
Creatinine 0.5 L
Glucose 139 H
Calcium 8.4
Total Bilirubin 0.8
AST 17
ALT 32
Alkaline Phosphatase 94
Vital Signs:
max temp for 24 hours
01/01/25
03:45
Temp 98.3 F
Vital Signs
Temp Pulse Resp BP Pulse Ox
98.3 F 86 15 140/70 95
01/01/25 03:45 01/01/25 07:35 01/01/25 07:18 01/01/25 07:35 01/01/25 07:18
I&O
12/31/24 01/01/25 01/02/25
06:59 06:59 06:59
Intake Total 240 / 240
Output Total 375 / 375 1400 / 1400
Balance -375 / -375 -1160 / -1160
Review of Systems
-
All other systems: Reviewed and negative
Physical Exam
-
General: Appears Chronically Ill
HEENT: Normocephalic, Atraumatic and Oxygen
Respiratory: Decreased Breath Sounds (all lung parikh--no wheezes for me) and Other (accessory muscle use)
Cardiac: Regular Rhythm, S1/S2 and Tachycardic; Negative Murmur
GI: Soft, Nontender, Nondistended and Normal Bowel Sounds
Musculoskeletal: No Clubbing, No Cyanosis and No Edema
Skin: Warm
Neuro: Awake
--- NOTE | 2025-01-01 09:24 | W.PN.PUL.V3 ---
Today's Communication / Plan
-
Prednisone 50 mg
Continue nebulizers
Attempt to wean FiO2
BiPAP as tolerated
Outpatient pulmonary follow-up
Assessment
-
This is a 84-year-old male with past medical history significant for COPD on 2 L home O2, ongoing tobacco use, paroxysmal atrial fibrillation, hypertension, CHF who presented to the emergency room with shortness of breath. Patient required 6 L of
supplemental oxygen at admission and in view of respiratory distress was scheduled to be started on PAP therapy. In the emergency room troponin was negative, BNP was 400. ECG showed normal sinus rhythm at a rate of 90 with right bundle branch
block which is unchanged from prior, chest x-ray is completely clear. COVID test negative, influenza negative, CBC was unremarkable electrolytes BUN/creatinine were also stable except for a bicarb of 37 which is similar to his prior elevated bicarb
of 35. Chest x-ray without evidence of active pneumonia. Patient was brought to ICU for possible need for positive airway pressure therapy. Pulmonary consultation was requested for further recommendations..
Acute on chronic hypoxic and hypercapnic respiratory failure
AECOPD- on End stage COPD Hx
Small pericardial effusion on CT
Conditions present prior to admission:
[facility] 03-09 to : AECOPD. Again run out of nebulized BDs. O2 return to baseline 2L, d/c on prednisone taper
[facility] 11-29 to for AECOPD in suspected stage IV COPD, received ceftriaxone 3 d course by adm rekha, received tapering CSs.
Noted he run out of albuterol nebs due to frequent use due to uncontrolled dyspnea, could afford only half month supply
Chronic hypoxemic respiratory failure, suspected chronic hypercapnia (chronically elevated total serum CO2)
COVID illness, [facility] 01-24 to
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
Last seen in office-[place] 04/01/23: FVC 1.02/28%, FEV1 0.26/10%, ratio 26%
6MWT confirms the need for 3 L O2 with ambulation.
History of E. coli bacteremia due to suspected biliary source 06/2021
Dilated CBD 1.8cm
Refused MRI testing due to refusal for mask use
H/o Prostate CA s/p XRT 2013
Chronic hypercarbia
Cholecystectomy
Chronic LILIBETH edema, mild
Obesity
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
Plan
Respiratory status slowly improving-severe oxygen dependent COPD with acute decompensation-chronic hypercapnia.
Supplemental oxygen as needed-attempt to wean-on 2.5 L at home-continues on 8 L mid flow- 94% saturation-asked nursing to attempt FiO2 wean-okay with saturations 88% or greater
Nebulizers-dual nebs and budesonide
Mucolytic's
Aspiration precautions per protocol
Mucus clearing devices encouraged
Prednisone 50 mg taper
BiPAP at night-intermittently tolerating-according to nursing rips it off after 15 minutes and states that he does not need it--reportedly last night tolerated for several hours-'it does not help' we will not try to arrange as an outpatient
Cultures reviewed.
Status post antibiotics-observe off antibiotics
Ongoing smoking cessation counseling.
DVT prophylaxis-on Lovenox
GI prophylaxis-on pantoprazole.
Nutrition
Early mobilization..
Patient very anxious and wants to be discharged, explained he is still on too high FiO2
Reviewed with nursing
Reviewed with case management-no needs to set up BiPAP as an outpatient-refusing as an inpatient
Outpatient pulmonary follow-sees Dr. Jesus
Diagnostic Data
ECHO: Left ventricular ejection fraction is 65-70% by visual assessment. Normal regional wall motion. right ventricular size. Low normal right ventricular systolic function.
Aortic sclerosis without stenosis.Trace tricuspid regurgitation. Estimated pulmonary artery pressure of 20-25 mmHg. Compared to previous echo on 01/24/2022, no significant change in overall cardiac function. The right ventricle is now enlarged.
CXR 12/21/24- The lungs appear clear. The lungs appear hyperinflated, suggesting COPD. Cardiac silhouette and vascular markings appear within normal limits.
CXR 05/13/24- Findings suggesting mild pulmonary interstitial edema.
CXRs 05-31-23, c/w 03-09 and 11-29-22. No pulmonary infiltrates. Somewhat prominent breast shadows
Chest CT: 12/24/24- No acute disease of the chest. No evidence of pulmonary embolus. Small pericardial effusion. Findings consistent with moderate emphysematous disease.
Mild right upper lobe atelectasis versus scarring.
TTE 01-24-22 CONCLUSIONS: Normal left ventricular size, wall thickness and systolic function. No regional wall motion abnormalities are seen. LV ejection fraction is 65-70% by visual assessment. Diastolic function indeterminate. Normal right
ventricular size and function. Normal atria. Aortic sclerosis without stenosis. No other significant valve abnormalities were observed. Small pericardial effusion without evidence of hemodynamic compromise. No evidence of pulmonary hypertension. No
prior study available for comparison.
LILIBETH doppler 01-24-22: negative
[place] 04/01/23: FVC 1.02/28%, FEV1 0.26/10%, ratio 26%, significant BD response in FEV1 (27%). Post BD results FVC 0.99/27%, FEV1 0.33/13%, ratio 34%. Very severe obstruction and suggestive of severe restrictive pattern.
Subjective Data
-
Date of Service:
Date of Service: January 01, 2025
Chief Complaint: Pulmonary Follow Up and Dyspnea Follow Up
Subjective:
He states that he feels 'fine', wants to go home, states that his breathing is back to his baseline, no chest pain, productive cough, abdominal pain,
Review of Systems
General: Other (Per HPI)
Objective Data
Data Reviewed
Vital Signs / I&O:
Vital Signs
Temp Pulse Resp BP Pulse Ox
97.7 F 86 15 140/70 95
01/01/25 07:20 01/01/25 07:35 01/01/25 07:18 01/01/25 07:35 01/01/25 07:18
Intake and Output
12/31/24 01/01/25 01/02/25
06:59 06:59 06:59
Intake Total 240 / 240
Output Total 375 / 375 1400 / 1400
Balance -375 / -375 -1160 / -1160
SaO2: 95
Nasal Cannula flow liters per minute: 6
Physical Exam
General: Respiratory Distress (n) and Comfortable
HEENT: Normocephalic and Anicteric
Cardiovascular: Regular Rhythm
Respiratory: Wheeze (Minimal wheezing end expiratory), Crackles ( rare basilar), Non-Labored Respirations and Accessory Resp Muscle Use (n)
GI: Soft and Non Distended
Neurology: Awake, Alert and No Motor Deficits
Skin: Warm, Good Color, Cyanosis (n) and Jaundice
Labs/Micro/Reports
Lab Data
01/01/25 04:49
01/01/25 04:49
--- NOTE | 2025-01-01 16:00 | W.DCSUMMARY ---
Discharge Summary
Discharge Data
Date of Admission: 12/22/24
Date of Discharge: 01/01/25
-
Pending Results: No
Hospital Course
Primary care physician : Unknown
Principal Discharge diagnosis : Acute on chronic hypoxemic and hypercapnic respiratory failure due to chronic obstructive pulmonary disease exacerbation, cardiac effusion on CT
Chronic Discharge diagnosis : Active smoking, hyponatremia, dysphagia, paroxysmal atrial fibrillation, benign prostatic hyperplasia
Hospital Course : Patient was an 84-year-old male with a history for chronic hypoxemic and hypercapnic respiratory failure due to chronic obstructive pulmonary disease on 2 L home oxygen with ongoing tobacco use who presented with complaints of
shortness of breath. Despite using his 2 L continuously, he had been having shortness of breath for 2 days prior to admission. He had a cough productive of sputum along with nausea but no vomiting. He denied fevers or chills. He denied abdominal
pain or diarrhea. Once he arrived in the emergency department, he required 6 L of oxygen satting around 96%. Troponin was negative and his proBNP was 400. Patient had a bicarbonate of 37 likely due to his chronic respiratory acidosis and the
patient was admitted.
Problem #1: Acute on chronic hypoxemic and hypercapnic respiratory failure due to chronic obstructive pulmonary disease exacerbation. On admission, patient was on 6 L but he was as high as 10 L on the morning of discharge. We continued noninvasive
ventilation and BiPAP use at night. He completed his course of azithromycin. He was seen in consultation by pulmonary. He was placed on IV Decadron and converted to p.o. prednisone 50 mg daily. CAT scan of his chest was negative for pulmonary
embolism. At discharge they recommended triple therapy with a LAMA/LABA and inhaled corticosteroid. He should follow-up with pulmonary as an outpatient.
Patient is leaving AGAINST MEDICAL ADVICE. His son has arrived at the bedside with a portable O2 tank to take him home. It was explained to him, by myself, that he is requiring higher amounts of oxygen than he normally does at home and that
respiratory arrest and possibly could occur. He understands and he did sign the AGAINST MEDICAL ADVICE form.
Time for discharge 31 minutes.
Problem #2: Cardiac effusion on CAT scan. This was found on CAT scan. He should follow-up with cardiology as an outpatient.
Problem #3: All other medical issues. These include Active smoking, hyponatremia, dysphagia, paroxysmal atrial fibrillation, benign prostatic hyperplasia. These medical issues were stable during his hospitalization. Medications were continued as
able. He was counseled to quit smoking.
Important imaging findings :
CT SCAN CHEST IMPRESSION:
No acute disease of the chest. No evidence of pulmonary embolus.
Small pericardial effusion.
Findings consistent with moderate emphysematous disease.
Mild right upper lobe atelectasis versus scarring.
Discharge Plan
-
Patient Disposition: Against Medical Advice
Discharge Diagnosis/Procedures: Acute on chronic hypoxemic and hypercapnic respiratory failure, chronic obstructive pulmonary disease exacerbation, ongoing active smoking, hyponatremia, chronic dysphagia, paroxysmal atrial fibrillation, benign
prostatic hyperplasia
Condition: Fair
Diet: As tolerated and Regular
Activity: As tolerated
Driving Restrictions: No driving
Bathing Restrictions: None
Activity Restrictions/Additional Instructions:
Wound Care Instructions
R sacral/buttocks ulcer-clean with saline or soap and water, silicone border foam, change every 3 days and as needed for loosened dressing. If foam ineffective, apply barrier ointment 3 times a day instead.
Pressure redistributing chair cushion (i.e. Air chair cushion).
Elevate heels off bed with pillow/s.
Follow up at wound care center call for an appointment.
Referrals:
Mike Harris MD [Active] - in two weeks (PFT w/ [employer] MERCER[employer]ER OPERATOR)
UNKNOWN - PT DOES,NOT KNOW [Family Provider] - in less than 1 week
Prescriptions:
New
guaifenesin 600 mg Tablet Extended Release 12hr
600 mg PO Q12 Qty: 0 0RF
prednisone 10 mg Tablet
See Rx Instructions .ROUTE .COMPLEX Qty: 45 0RF
Rx Instructions:
Take By Mouth:
50 mg daily x3 days, 40 mg daily x3 days,
30 mg daily x3 days, 20 mg daily x3 days,
10 mg daily x3 days
Continued
atorvastatin 40 MG tablet
40 mg PO DAILY Qty: 30 0RF
diltiazem HCl 120 MG capsule,extended release 24hr
120 mg PO DAILY Qty: 30 0RF
albuterol sulfate 2.5 mg /3 mL (0.083 %) Solution For Nebulization
5 mg INHALATION R Q6HPRN PRN (Reason: wheezing)
albuterol sulfate 90 mcg/actuation Hfa Aerosol Inhaler
2 puff INHALATION R Q6HPRN PRN (Reason: wheezing)
budesonide 0.5 mg/2 mL Suspension For Nebulization
0.5 mg INHALATION R BID
tamsulosin 0.4 MG capsule
0.4 mg PO BID
omeprazole 20 MG capsule,delayed release(DR/EC)
20 mg PO DAILY
aspirin 81 mg Tablet,Chewable
81 mg PO DAILY Qty: 0 0RF
gabapentin 300 mg Capsule
300 mg PO TID
Discharge Orders:
Discharge Patient (As Directed); Ordered 01/01/25
Ordered By: Lyndsey Bishop
Discharge Date and Time
Print Language: VIETNAMESE
--- NOTE | 2025-01-01 16:50 | PTCARENOTE ---
Patient left AMA with his son. Discharge medication list reviewed and all questions answered. Patient was escorted to main lobby via volunteer wheel chair.
--- NOTE | 2025-01-01 17:01 | CM ---
Notified by munitions handler patient intended to leave AMA. O2 5L. Per nurses notes, patient left with son.
Phone call to patient's cell; left message notifying him that VN was setup for him and they will contact him.
Message from CANDI Gonsalez; We already have a referral for him, we are booked up. We can see him mid week. We will let MD know on Saturday. They are aware he left AMA today.
Patient left AMA today, and referral continued with [facility].
== END 2025-01-01 16:55 | disposition left against medical advice (07) | DRG 189 ==
LOC: IMU 04:12
PROVIDERS: Internal Medicine; Physician Assistant; ADMITTING PHYSICIAN Internal Medicine; ATTENDING PHYSICIAN Internal Medicine; CONSULT PHYSICIAN Internal Medicine; EMERGENCY PHYSICIAN Emergency Medicine
PROC: 5A09357 Assistance with Respiratory Ventilation, Less than 24 Consecutive Hours, Continuous Positive Airway Pressure (ICD-10-PCS; 2024-12-23)
DX: J96.21 Acute and chronic respiratory failure with hypoxia (principal); J44.1 Chronic obstructive pulmonary disease with (acute) exacerbation; I50.32 Chronic diastolic (congestive) heart failure; I31.39 Other pericardial effusion (noninflammatory); J98.11 Atelectasis; E22.2 Syndrome of inappropriate secretion of antidiuretic hormone; J44.0 Chronic obstructive pulmonary disease with (acute) lower respiratory infection; J96.22 Acute and chronic respiratory failure with hypercapnia; I11.0 Hypertensive heart disease with heart failure; F17.200 Nicotine dependence, unspecified, uncomplicated; E11.9 Type 2 diabetes mellitus without complications; E78.5 Hyperlipidemia, unspecified; I48.0 Paroxysmal atrial fibrillation; D69.6 Thrombocytopenia, unspecified; D72.819 Decreased white blood cell count, unspecified; N40.0 Benign prostatic hyperplasia without lower urinary tract symptoms; I45.10 Unspecified right bundle-branch block; K21.9 Gastro-esophageal reflux disease without esophagitis; I70.0 Atherosclerosis of aorta; L89.312 Pressure ulcer of right buttock, stage 2; R13.10 Dysphagia, unspecified; I27.20 Pulmonary hypertension, unspecified; E78.00 Pure hypercholesterolemia, unspecified; Z86.16 Personal history of COVID-19; Z87.01 Personal history of pneumonia (recurrent); Z99.81 Dependence on supplemental oxygen; Z79.82 Long term (current) use of aspirin; Z90.49 Acquired absence of other specified parts of digestive tract; Z85.46 Personal history of malignant neoplasm of prostate; Z11.52 Encounter for screening for COVID-19; Z92.3 Personal history of irradiation
CPT/HCPCS: 71045; 71046; 71275; 80048; 80053; 82805; 82962; 83605; 83735; 83880; 84145; 84484; 85025; 85027; 85610; 87502; 87811; 92610; 93005; 93306; 94640; 94660; 96374; 96375; 97163; 97167; 97530; 97535; 99285; 99406; Q9967

== ENCOUNTER 2025-01-02 13:32 | Inpatient (IN) | payer OTHER, SELFPAY ==
[2025-01-02] VITALS (18 sets, daily range): BP systolic 94–147; BP diastolic 46–74; PULSE 2–118; BMI 21.4; BMI 21.5
--- NOTE | 2025-01-02 11:58 | ED.GENMED ---
History of Present Illness
<John Jimenez DO - Last Filed: 01/02/25 12:15>
General
Chief Complaint: Breathing Problem
Time Seen by Provider: 01/02/25 11:58
<Karma Rosa PA-C - Last Filed: 01/02/25 12:57>
General
Source: patient and ambulance crew
Exam Limitations: clinical condition
Nursing documentation reviewed up to this point in time: agreed with
History of Present Illness
History of Present Illness:
Patient is a 84-year-old male here with shortness of breath and hypoxia with a history of COPD on chronic oxygen 2-1/2 L at baseline who presented to the ED on 3�4 for hypoxic and hypercapnic respiratory failure due to COPD. Patient was placed on
BiPAP and received IV Decadron transition to prednisone, he had a CT of his chest which was negative up PE but had a small pericardial effusion. Patient was on 10 L at the morning of discharge but he decided he wanted to leave AGAINST MEDICAL
ADVICE. Patient says he wore his normal 2-1/2 L of oxygen last night and was very short of breath. He was unable to wear his CPAP because of how short of breath he was. Patient did not give himself any nebulizer treatments. He was instructed to
follow-up with the order entry representative as an outpatient.
he says he feels crappy
no chest pain, leg swelling, fever, vomiting
Past History
<John Jimenez DO - Last Filed: 01/02/25 12:15>
Past History
ED Past Medical History: Cancer, COPD, HTN, Hypercholesterolemia, NIDDM and Other (COVID pneumonitis January 2022)
ED Past Surgical History: Cholecystectomy and Urological
Social History
Tobacco: Smoker
Alcohol: None
Personal:
Living: alone
Employment: Retired
Family History
Family History: Other (Noncontributory)
Review of Systems
<Karma Rosa PA-C - Last Filed: 01/02/25 12:57>
Review of Systems
Allergies reviewed?: Yes
Unable to obtain full review of systems at this time due to: due to acuity
Phy Exam
<Karma Rosa PA-C - Last Filed: 01/02/25 12:57>
Physical Exam
Physical Exam:
GENERAL: Alert , in moderate respiratory distress, tachypneic, 1 or 2 word answers
EYE: pupils equal and reactive
NECK: Supple
ENT:
CARDIAC: Tachycardic, no edema
LUNGS: Very diminished tight breath sounds, faint wheezing, no crackles, no edema, moderate respiratory distress,
ABDOMEN: Soft, without focal tenderness, no r/g, no cvat, normal bowel sounds
NEUROLOGICAL: Alert and oriented, no focal neuro deficits
SKIN: Warm and dry, skin intact.
MUSCULOSKELETAL: No edema, well perfused.
PSYCH: Normal and appropriate interaction.
Scores
<Karma Rosa PA-C - Last Filed: 01/02/25 12:57>
Heart Failure Risk
Heart Failure Risk Score: Not Applicable
Course
<John Jimenez DO - Last Filed: 01/02/25 12:15>
Orders/Labs/Results
Orders:
Orders
01/02/25 11:55
Electrocardiogram (*1) Urgent
Reason for Study: Shortness of Breath
EKG- Treatment ONCE
01/02/25 11:57
Cr Chest Portable [CR Chest Portable - 1 View] Urgent
Comment:
Reason For Exam: shortness of breath
Reason Study Needs to be Portable: Patient Unstable
01/02/25 12:00
COVID-19 Antigen Urgent
Source: Nasal Swab
Complete Blood Count/With Diff Urgent
Comprehensive Metabolic Panel Urgent
NT-proBNP Urgent
Troponin I Urgent
Comment: ADD ON
Influenza A+B Rapid Molecular Urgent
KRISTEN Source: Nasal Swab
Specimen Description:
Dexamethasone Sod Phosphate [Decadron] 10 mg IV NOW STA
Ipratropium/Albuterol Sulfate [Duoneb] 3 ml INH R NOW STA
Bipap [RESP] Urgent
Patient to use own unit?: No
Inspiratory Pressure (cm H2O): 10
Expiratory Pressure (cm H2O): 5
01/02/25 12:01
Add On- LAB Urgent
Tests Added?: troponin
01/02/25 12:17
Oseltamivir Phosphate [Tamiflu] 75 mg PO NOW STA
Abnormal Lab Results
01/02/25
12:00
WBC 15.4 H 10^3/uL
(4.8-10.8)
MCV 95.1 H fL
(80.0-94.0)
MCHC 32.0 L g/dL
(33.0-37.0)
Abs Immat Gran (auto) 0.1 H 10^3/uL
(0-0.05)
Absolute Neuts (auto) 13.0 H 10^3/uL
(1.4-6.5)
Absolute Lymphs (auto) 0.9 L 10^3/uL
(1.2-3.4)
Absolute Monos (auto) 1.4 H 10^3/uL
(0.1-0.6)
Neutrophils % 84.5 H %
(42.2-75.2)
Lymphocytes % 5.8 L %
(20.5-51.1)
Chloride 96 L mmol/L
(98-107)
Carbon Dioxide 35 H mmol/L
(22-30)
BUN 24 H mg/dl
(9-20)
Creatinine 0.5 L mg/dL
(0.7-1.3)
Glucose 194 H mg/dl
(70-99)
Calcium 8.2 L mg/dl
(8.4-10.2)
Total Protein 5.5 L g/dl
(6.3-8.2)
Albumin 3.1 L g/dl
(3.5-5.0)
01/02/25 12:00
01/02/25 12:00
Vital Signs
Initial and Last Documented VS:
Initial Vital Signs
Pulse Ox
86
01/02/25 11:53
Last Documented Vital Signs
Temp Pulse Resp BP Pulse Ox
36.9 C 118 26 129/69 90
01/02/25 12:01 01/02/25 12:44 01/02/25 12:44 01/02/25 12:01 01/02/25 12:44
<Karma Rosa PA-C - Last Filed: 01/02/25 12:57>
Orders/Labs/Results
Orders:
Orders
01/02/25 11:55
Electrocardiogram (*1) Urgent
Reason for Study: Shortness of Breath
EKG- Treatment ONCE
01/02/25 11:57
Cr Chest Portable [CR Chest Portable - 1 View] Urgent
Comment:
Reason For Exam: shortness of breath
Reason Study Needs to be Portable: Patient Unstable
01/02/25 12:00
COVID-19 Antigen Urgent
Source: Nasal Swab
Complete Blood Count/With Diff Urgent
Comprehensive Metabolic Panel Urgent
NT-proBNP Urgent
Troponin I Urgent
Comment: ADD ON
Influenza A+B Rapid Molecular Urgent
KRISTEN Source: Nasal Swab
Specimen Description:
Dexamethasone Sod Phosphate [Decadron] 10 mg IV NOW STA
Ipratropium/Albuterol Sulfate [Duoneb] 3 ml INH R NOW STA
Bipap [RESP] Urgent
Patient to use own unit?: No
Inspiratory Pressure (cm H2O): 10
Expiratory Pressure (cm H2O): 5
01/02/25 12:01
Add On- LAB Urgent
Tests Added?: troponin
01/02/25 12:17
Oseltamivir Phosphate [Tamiflu] 75 mg PO NOW STA
Abnormal Lab Results
01/02/25
12:00
WBC 15.4 H 10^3/uL
(4.8-10.8)
MCV 95.1 H fL
(80.0-94.0)
MCHC 32.0 L g/dL
(33.0-37.0)
Abs Immat Gran (auto) 0.1 H 10^3/uL
(0-0.05)
Absolute Neuts (auto) 13.0 H 10^3/uL
(1.4-6.5)
Absolute Lymphs (auto) 0.9 L 10^3/uL
(1.2-3.4)
Absolute Monos (auto) 1.4 H 10^3/uL
(0.1-0.6)
Neutrophils % 84.5 H %
(42.2-75.2)
Lymphocytes % 5.8 L %
(20.5-51.1)
Chloride 96 L mmol/L
(98-107)
Carbon Dioxide 35 H mmol/L
(22-30)
BUN 24 H mg/dl
(9-20)
Creatinine 0.5 L mg/dL
(0.7-1.3)
Glucose 194 H mg/dl
(70-99)
Calcium 8.2 L mg/dl
(8.4-10.2)
Total Protein 5.5 L g/dl
(6.3-8.2)
Albumin 3.1 L g/dl
(3.5-5.0)
01/02/25 12:00
01/02/25 12:00
Vital Signs
Initial and Last Documented VS:
Initial Vital Signs
Pulse Ox
86
01/02/25 11:53
Last Documented Vital Signs
Temp Pulse Resp BP Pulse Ox
36.9 C 118 26 129/69 90
01/02/25 12:01 01/02/25 12:44 01/02/25 12:44 01/02/25 12:01 01/02/25 12:44
<Karma Rosa PA-C - Last Filed: 01/02/25 12:57>
MDM/Problems Addressed
Differential Diagnosis Includes:
pneumonia, copd, chf, flu
MDM/Problems Addressed:
room [address] is the [facility]
just left AMA yesterday (larisa)
admitted 12/22-01/01 for COPD exac; h/o o2 chronic 2.5L requiring up to 10L and bipap at nights
steorids, nebs, pe study neg, small pericardial eff
wore 2.5 L last night and more SOB; tight, wheezing, hypoxic in 80s; much more comfortable on bipap, steroids and nebs given
FLU POS (new)
tamiflu ordered
cxr is reading possiblity of pna (but they say it looked like his ct scan)? no abx were given during admission
reassessed 1245 and pt looks much more comfortable, sat is still 90% on bipap
but he is less tachypneic and sounds improved
<Karma Rosa PA-C - Last Filed: 01/02/25 12:57>
*Critical Care Note
Total Time (30-74mins, 75-104mins- exclusive of procedures): Not Applicable
ED Attending Note
<John Jimenez DO - Last Filed: 01/02/25 12:15>
ED Attending Note
Patient seen and examined by attending physician: Yes
I performed the substantive portion of visit, reviewed & personally made and approve the management plan that is documented in note by myself or KAREEM.: Yes
ED Attending Note:
I evaluated the patient at bedside. Leukocytosis is noted. He was given IV steroids and is getting nebs. He was placed on BiPAP and is agreeing to stay in the hospital. Sats are 89% on the BiPAP but overall feels much improved.
-
Portions of this chart may have been created with voice recognition software.� Occasional wrong word or��sound alike� substitutions may have occurred due to the inherent limitations of voice recognition software.
Discharge Plan
Departure
Patient Disposition: Admit
Date of Disposition: 01/02/25
Time of Disposition: 12:49
Admit to: IMU
Presentation/result/management discussed w/ accepting MD/DO: Hospitalist
Condition: Fair
Covid-19: Negative COVID-19
Discharge Problem:
Influenza, Hypoxemia, Respiratory failure
Prescriptions:
No Action
atorvastatin 40 MG tablet
40 mg PO DAILY Qty: 30 0RF
diltiazem HCl 120 MG capsule,extended release 24hr
120 mg PO DAILY Qty: 30 0RF
albuterol sulfate 2.5 mg /3 mL (0.083 %) Solution For Nebulization
5 mg INHALATION R Q6HPRN PRN (Reason: wheezing)
albuterol sulfate 90 mcg/actuation Hfa Aerosol Inhaler
2 puff INHALATION R Q6HPRN PRN (Reason: wheezing)
budesonide 0.5 mg/2 mL Suspension For Nebulization
0.5 mg INHALATION R BID
tamsulosin 0.4 MG capsule
0.4 mg PO BID
omeprazole 20 MG capsule,delayed release(DR/EC)
20 mg PO DAILY
aspirin 81 mg Tablet,Chewable
81 mg PO DAILY Qty: 0 0RF
gabapentin 300 mg Capsule
300 mg PO TID
guaifenesin 600 mg Tablet Extended Release 12hr
600 mg PO Q12 Qty: 0 0RF
prednisone 10 mg Tablet
See Rx Instructions .ROUTE .COMPLEX Qty: 45 0RF
Rx Instructions:
Take By Mouth:
50 mg daily x3 days, 40 mg daily x3 days,
30 mg daily x3 days, 20 mg daily x3 days,
10 mg daily x3 days
Referrals:
UNKNOWN,NO INTERVIEW [Family Provider] -
Interventions
Interventions:
*Risk Screen - Suicide Last Done: 01/02/25 12:08
*General Assessment Last Done: 01/02/25 12:08
*Neglect/Abuse Screening Last Done: 01/02/25 12:08
*ED- Fall Risk Assessment Last Done: 01/02/25 12:08
*ED COVID-19 Vaccine History Last Done: 01/02/25 12:08
ED- Cardiac Assessment Last Done: 01/02/25 12:08
ED- Pulmonary Assessment Last Done: 01/02/25 12:08
Discharge Date and Time
Print Language: PARAGUAYAN
[2025-01-02] MEDS: DUONEB 3 ML INH ×3 (12:04→20:12)
[2025-01-02] MEDS: DECADRON 10 MG IV (12:04)
[2025-01-02 12:13] LABS: % Basophils 0.1 % (0-2); % Eosinophils 0.1 % (0-6); % Immature Granulocytes 0.5 % (0-0.5); % Lymphocytes 5.8 % (20.5-51.1); % Neutrophils 84.5 % (42.2-75.2); Absolute Immature Granulocytes 0.1 10^3/uL (0-0.05); Absolute Lymphocytes 0.9 10^3/uL (1.2-3.4); Absolute Monocytes 1.4 10^3/uL (0.1-0.6); Hematocrit 44.7 % (39.0-52.0); Hemoglobin 14.3 g/dL (13.0-18.0); Mean Corpuscular Hgb 30.4 pg (27.0-31.0); Mean Corpuscular Volume 95.1 fL (80.0-94.0); Nucleated Red Blood Cells % 0 % (-); Platelet Count 157 10^3/uL (130-400); Red Cell Dist. Width 11.7 % (11.5-14.5); White Blood Cell Count 15.4 10^3/uL (4.8-10.8)
[2025-01-02 12:19] LABS: ALT (SGPT) 29 U/L (0-50); AST (SGOT) 17 U/L (17-59); Albumin 3.1 g/dl (3.5-5.0); Alkaline Phosphatase 107 U/L (38-126); Blood Urea Nitrogen 24 mg/dl (9-20); Calcium 8.2 mg/dl (8.4-10.2); Chloride 96 mmol/L (98-107); Estimated Creatinine Clearance 79 ml/min; Glucose 194 mg/dl (70-99); Potassium 3.6 mmol/L (3.5-5.1); Sodium 137 mmol/L (135-145); Total Bilirubin 0.7 mg/dl (0.2-1.3); Total Protein 5.5 g/dl (6.3-8.2); eGFR > 60.00
[2025-01-02 12:23] LABS: COVID-19 Antigen Negative (Negative)
[2025-01-02] MEDS: TAMIFLU 75 MG PO ×2 (12:24→20:51)
[2025-01-02 12:29] LABS: NT-proBNP 618 pg/ml
[2025-01-02 12:30] LABS: Carbon Dioxide 35 mmol/L (22-30)
[2025-01-02 12:56] LABS: Troponin I 0.017 ng/ml
--- NOTE | 2025-01-02 13:05 | HPS.HSE ---
Family Physician
-
Family Physician: NO INTERVIEW UNKNOWN
Chief Complaint
-
Shortness of Breath
History of Present Illness
Patient is an 84 y/o male past medical history of chronic hypoxia, COPD, A-Fib, CHF, HTN, DM and [employer] Cancer who presents with increased shortness of breath. Patient was initially admitted to [facility] on December 21 with acute on
chronic hypoxic respiratory failure. During that hospitalization he completed a coarse of azithromycin. He was maintained on steroids, and nebulizer treatments. Yesterday patient was still requiring greater oxygen supplementation compared to his
baseline but left against medical advice. He returns today with worsening shortness of breath particularly last night. He denies fevers, sweats or chills. Patient is requiring BiPAP in the emergency department, and has also test positive for
Influenza Type A.
Medical History
Past Medical History
Past Medical History: Reports Other
Additional Past Medical History:
Chronic Hypoxic Respiratory Failure
Chronic HFpEF
Paroxysmal Atrial Fibrillation
Essential Hypertension
Hyperlipidemia
Diabetes Mellitus, Type II
COPD
Dysphagia
GERD
Hx Prostate CA
Past Surgical History: Reports Cholecystectomy
Social History
Tobacco: Smoker (Started smoking at the age of 11)
Alcohol: None
Family History
Family History: Not pertinent
Allergies / Home Medications
Allergies reflects when Allergies were last updated in [employer].
Home Medications with original date entered in [employer]
Allergy/Medication List:
Allergies
Allergy/AdvReac Type Severity Reaction Status Date / Time
No Known Allergies Allergy Verified 08/14/24 11:39
Home Medications
atorvastatin 40 mg tablet 40 mg PO DAILY High cholesterol #30 tabs 06/04/23
diltiazem HCl 120 mg capsule,extended release 24 hr 120 mg PO DAILY Arrhythmia #30 caps 06/04/23
albuterol sulfate 2.5 mg/3 mL (0.083 %) solution for nebulization 2.5 mg inhalation R Q6HPRN PRN wheezing 11/07/23
albuterol sulfate 90 mcg/actuation aerosol inhaler 2 puff inhalation R Q6HPRN PRN wheezing 11/07/23
budesonide 0.5 mg/2 mL suspension for nebulization 0.5 mg inhalation R BID Lung/Breathing Issues 05/13/24
omeprazole 20 mg capsule,delayed release 20 mg PO DAILY Gastrointestinal Issue 05/13/24
tamsulosin 0.4 mg capsule 0.4 mg PO BID Urinary issue 05/13/24
aspirin 81 mg chewable tablet 81 mg PO DAILY #0 tabs 05/16/24
gabapentin 300 mg capsule 300 mg PO TID Pain 12/21/24
guaifenesin 600 mg tablet, extended release 12 hr 600 mg PO Q12 #0 tabs 01/01/25
prednisone 10 mg tablet See Rx Instructions .Route .COMPLEX #45 tabs 01/01/25
Review of Systems
-
A 12 point ROS was completed and negative except as noted: Yes
Constitutional: Denies Fever or Chills
Respiratory: Reports See HPI
Cardiac: Denies Chest Pain or Palpitations
Abdomen/GI: Denies Diarrhea
Physical Exam
Vital Signs
Vital Signs
Temp Pulse Resp BP Pulse Ox
98.4 F 118 26 129/69 90
01/02/25 12:01 01/02/25 12:44 01/02/25 12:44 01/02/25 12:01 01/02/25 12:44
Physical Exam
General: Well Developed and Well Nourished
HEENT: NormoCephalic, Anicteric, Atraumatic and Oxygen (BiPAP)
Respiratory: Wheezes (Anteriorly) and Decreased Breath Sounds (Posteriorly)
Cardiac: S1/S2, Regular Rhythm and Tachycardia
GI: Soft and Non Tender
Rectal: Deferred by Provider
Musculoskeletal: No Clubbing, No Cyanosis and No Edema
Skin: Warm and Dry
Neuro: Awake, Alert, Oriented and Nonfocal/grossly intact
Psych: Calm
Laboratory Results
-
01/02/25 12:00
01/02/25 12:00
Laboratory Results
Total Bilirubin 0.7 mg/dl (0.2-1.3) 01/02/25 12:00
AST 17 U/L (17-59) 01/02/25 12:00
ALT 29 U/L (0-50) 01/02/25 12:00
Alkaline Phosphatase 107 U/L (38-126) 01/02/25 12:00
Troponin I 0.017 ng/ml 01/02/25 12:00
Data Reviewed
-
Lab Data: Labs Reviewed by me
Old Records: Reviewed
Impression/Plan
-
Acute on Chronic Hypoxic Respiratory Failure
Acute COPD Exacerbation
Acute Viral Bronchitis secondary to Influenza Type A
-Admit to IMU for BiPAP therapy
-Consult Pulmonary
-Continue supplemental oxygen
-Continue DuoNeb QID and PRN
-Continue Pulmicort Neb
-Continue Decadron 4mg IV q8h
-Continue Mucinex
-CXR appears similar compared to prior image therefore doubt new bacteria pneumonia despite leukocytosis - Hold on antibiotics for now - Check procalcitonin, if elevated start antibiotics to cover for hospital acquired pneumonia
Chronic HFpEF
-Monitor Is&Os and Daily Weights
Paroxysmal Atrial Fibrillation
-Patient is not on anticoagulation likely due to fall risk
-Continue diltiazem rate control
-Continue aspirin
Hyperlipidemia
-Continue atorvastatin
Diabetes Mellitus, Type II
-Check HgbA1c
-Continue diabetic diet
-Monitor sugars and continue coverage insulin - Suspect sugars running high due to steroids
Dysphagia
-Speech previously recommended IDDSI 6 with mildly thickened liquids
-Patient declines modified diet and understands the risk
GERD
-Continue Protonix
Hx Prostate CA s/p Radiation
-Continue Flomax
DVT proph: Lovenox
Code Status: DNR
--- NOTE | 2025-01-02 13:12 | W.PN.UPDATE ---
Update Note
Progress Note Update
I saw and examined the patient.
The VERTICAL PUNCH OPERATOR or PA's note was reviewed and I agree with the note.
Comment:
This note serves as an addendum to the H&P by director financial analysis KAREEM
Simona SALAZAR
HPI
84M who just left AMA yesterday 01/01/25Saturday who was dmitted 12/22-01/01 for COPD exac
HX Home O2 2.5L dependent COPD requiring up to 10L and BIPAP HS, steorids, Nebs
Was NEG PE study. Noted small pericardial effusion.
He pw reporting he wore 2.5 L NC O2 last night and more SOB
Associated WILLIS, wheezing. Hyypoxic in 80s
He is much more comfortable on bipap, steroids and nebs given at ER
VS:
Appropriate
Not toxic looking
afebrile, tachypneic
comfortable on BiPAP
Decreased AE b/l
No peripheral edema
Nl mood and affect
Selected Entries
01/02/25
11:56 01/02/25
12:44
Temp 98.4 F
Pulse 126 118
Resp Rate 23 26
Blood pressure 129/69
SaO2 86 90
Oxygen Mode of Delivery BiPAP
Nasal Cannula flow liters per minute 8
CXR:
Hyperinflated lungs compatible with emphysema.
opacities within both lower lungs, stable from most recent radiograph of December 24, 2024, and likely representing pneumonia and associated bronchitis.
ASSESSMENT & PLAN
Now POS FLU A which is new. Initiated Tamiflu at ER
CXR suggest opacities within both lower lungs, stable from most recent radiograph of December 24, 2024, and likely representing PNA ( Viral vs bacterial) and associated bronchitis. S/p completion of PO Z max
Acute on chronic hypoxic and hypercapnic respiratory failure
AE COPD- on End stage COPD Hx
Small pericardial effusion on CT
- check PCT
- cont. Tamiflu for 5 days
- cont. Rx from yesterday
- cont BIPAP
- reconsult Pul
DVT Px with LMWH
DNR
IMU
--- NOTE | 2025-01-02 14:30 | PTCARENOTE ---
Patient received from ED. Patient arrived on BiPAP, AAO and VSS. Will attempt to get patient to N/C. Patient had just left yesterday AMA and returns with shortness of breath and Flu A+. No fluids via IV. Steroids and aucchecks ordered.
Reoriented to room. Call rose in reach.
[2025-01-02 14:38] LABS: Procalcitonin < 0.05 ng/ml (0.0-0.25)
--- NOTE | 2025-01-02 15:42 | CON.PUL ---
Addendum entered and electronically signed by Donn Tang MD 01/02/25 17:38:
Total time spent today was 57 minutes for this encounter. Time includes reviewing laboratory test/imaging results, reviewing pertinent medical records, obtaining and reviewing medical history, performing an appropriate exam, ordering medications,
tests and procedures. Time also includes documentation of this encounter, coordinating patient care and communicating with other healthcare professionals. Total time does not include separately billed tests performed on this date of service.
Original Note:
Consultation
Consultation Request
Date/Time Consultation Requested: 01/02/2025 - 140
Date/Time Consultation Performed: 01/02/2025 - 1530
Requesting Provider: Heather Steel PA-C
Performing Provider: Dr. Tang
Reason for Consultation: Hypoxia/SOB on BiPAP
Medical History
-
Chief Complaint: Worsening SOB
History of Present Illness:
84-year-old male with a past medical history of tobacco use, severe COPD, prostate cancer hyperlipidemia, chronic respiratory failure on home O2 at 2 L/min intermittently, biliary stone, history of UTI and DM type II who presents with SOB. Patient
recently hospitalized from 12/22 - 01/01/2025 and left AMA. He was hospitalized for acute on chronic hypoxic + hypercapnic respiratory failure due to a suspected COPD exacerbation. He was on systemic steroids, was treated with Zithromax, and had
required up to 10 L/min nasal cannula. He is now coming back as his SOB worsened last night. He was placed onto BiPAP in the ER. Flu swab was positive for influenza A. Labs significant for leukocytosis to 15.4, glucose 194, procalcitonin <0.05
and COVID-19 antigen negative. He was given Decadron in the ER, DuoNebs and Tamiflu and admitted to the IMU. Pulmonary service now consulted for additional management/recommendations.
When asked with the patient he was resting in bed in no acute distress. Currently on BiPAP 12/6 cmH2O bled with 10 L/min. He feels much better now. Current heart rate 89, saturating 89% and BP 114/51. He denies chest pain, NUR, nausea, fevers or
chills.
PMHx: Severe COPD, prostate cancer, hyperlipidemia, chronic respiratory failure on home O2 at 2 L/min intermittently, history of sepsis, biliary stone, hypertension, history of UTI, DM type II
PSHx: Cholecystectomy
Past Medical History
Past Medical History: Other (Above as per HPI)
Past Surgical History: Other (Above as per HPI)
Social History
Tobacco: Smoker (>[id number] history)
Alcohol: None
Drug: None
Personal:
Family History
Family History: Reviewed & Not Pertinent
Allergies / Home Medications
Allergies
Allergy/AdvReac Type Severity Reaction Status Date / Time
No Known Allergies Allergy Verified 08/14/24 11:39
Home Medications
�Medication �Instructions �Recorded �Confirmed �Last Taken �Type
atorvastatin 40 mg tablet 40 mg PO DAILY High cholesterol 06/04/23 01/02/25 11/06/23 Rx
#30 tabs
diltiazem HCl 120 mg 120 mg PO DAILY Arrhythmia #30 caps 06/04/23 01/02/25 11/06/23 Rx
capsule,extended release 24 hr
albuterol sulfate 2.5 mg/3 mL 2.5 mg inhalation R Q6HPRN PRN 11/07/23 01/02/25 11/06/23 History
(0.083 %) solution for nebulization wheezing
albuterol sulfate 90 mcg/actuation 2 puff inhalation R Q6HPRN PRN 11/07/23 01/02/25 11/06/23 History
aerosol inhaler wheezing
budesonide 0.5 mg/2 mL suspension 0.5 mg inhalation R BID 05/13/24 01/02/25 Unknown History
for nebulization Lung/Breathing Issues
omeprazole 20 mg capsule,delayed 20 mg PO DAILY Gastrointestinal 05/13/24 01/02/25 Unknown History
release Issue
tamsulosin 0.4 mg capsule 0.4 mg PO BID Urinary issue 05/13/24 01/02/25 Unknown History
aspirin 81 mg chewable tablet 81 mg PO DAILY #0 tabs 05/16/24 01/02/25 Unknown Rx
gabapentin 300 mg capsule 300 mg PO TID Pain 12/21/24 01/02/25 Unknown History
guaifenesin 600 mg tablet, 600 mg PO Q12 #0 tabs 01/01/25 01/02/25 Unknown Rx
extended release 12 hr
prednisone 10 mg tablet See Rx Instructions .Route 01/01/25 01/02/25 Unknown Rx
.COMPLEX #45 tabs
Review of Systems
-
History Source: Patient
All other systems: Negative unless noted
Vitals / Labs / Diagnostic Testing
Vital Signs
Temp Pulse Resp BP Pulse Ox
98.2 F 108 20 119/66 96
01/02/25 14:40 01/02/25 15:21 01/02/25 15:21 01/02/25 14:00 01/02/25 15:21
Lab Data
01/02/25 12:00
01/02/25 12:00
Microbiology
01/02/25 12:00 Nasal Swab Influenza Types A & B (BHUMI) - Final
Influenza A Positive, NAAT
Diagnostic Testing:
Physical Exam
-
HEENT: Normocephalic and Anicteric
Cardiovascular: S1/S2 and Peripheral Edema (negative)
Respiratory: Wheeze (negative), Rhonchi (negative), Non-Labored Respirations and Other (Coarse breath sounds heard bilaterally)
GI: Soft, Non Distended, Non Tender and Normal Bowel Sounds
Neurology: AO x 3 and Tremors (negative)
Skin: Warm and Dry
General: Respiratory Distress (negative), Comfortable, Fever (negative) and Chills (negative)
Assessment
-
Assessment: 84-year-old male with a past medical history of tobacco use, severe COPD, prostate cancer hyperlipidemia, chronic respiratory failure on home O2 at 2 L/min intermittently, biliary stone, history of UTI and DM type II who presents with
SOB. Patient recently hospitalized from 12/22 - 01/01/2025 and left AMA. He was hospitalized for acute on chronic hypoxic + hypercapnic respiratory failure due to a suspected COPD exacerbation. He was on systemic steroids, was treated with
Zithromax, and had required up to 10 L/min nasal cannula. He is now coming back as his SOB worsened last night. He was placed onto BiPAP in the ER. Flu swab was positive for influenza A. Labs significant for leukocytosis to 15.4, glucose 194,
procalcitonin <0.05 and COVID-19 antigen negative. He was given Decadron in the ER, DuoNebs and Tamiflu and admitted to the IMU. Pulmonary service now consulted for additional management/recommendations.
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
Impression:
#Acute on chronic respiratory failure with hypoxia due to influenza A pneumonia in the setting of severe COPD
#Influenza A pneumonia
#Leukocytosis
#Metabolic alkalosis likely due to chronic hypercapnia
#DM type II complicated by hyperglycemia (HbA1c: 7.21 on 05/15/2024)
#Severe COPD on DuoNebs q6hr + budesonide BID, chronic prednisone 10 mg daily + home oxygen using 2-3 L/min with activity
#Chronic deconditioning/wheelchair-bound
#Tobacco use disorder
Plan:
- Patient recently hospitalized for an acute exacerbation of COPD and left AMA on 01/01/2025 -> he is now back with significant SOB and found to have Flu-A, and is now on continuous BiPAP
- Continue with systemic steroids and wean as he clinically improves � currently on Decadron 4 mg IV q8hr
- Maintain euglycemia with goal BG >100 and <180 while on high-dose steroids; recheck HbA1c
- DuoNebs QID with budesonide BID
- prn nebulized bronchodilators q4hr for breakthrough symptoms
- Maintain SpO2 88-95% - currently on BiPAP --> check blood gas to assure pH and pCO2 are stable (can check tomorrow AM as he is currently awake, alert and oriented)
- Continue tamiflu for total of 5-10 days
- Bibasilar parenchymal opacities are similar to recent CXR from 12/24/2024, and likely is due to recent PNA with subsegmental atelectasis. No need for broad-spectrum antibiotics at this time but continue to closely monitor his SOB + degree of
hypoxia and trend WBC and monitor for fevers
- Incentive spirometer encouraged q1hr while awake
- Replete electrolytes with K>4, Mg>2
- Trend H/H and transfuse if needed to keep Hb>7g/dL; keep plt>20k, unless there is concern for bleeding then keep plt>50k
- DVT ppx: LMWH
Pulmonary service will continue to follow along. Ultimately patient should follow-up with us in the office with Dr. Jesus. Next appointment already scheduled for 01/26/2025 although this may need to be moved up depending how this hospital course
ensues.
Data:
CXR 01/02/2025:
Hyperinflated lungs compatible with emphysema.
Parenchymal opacities within both lower lungs, stable from most recent radiograph of December 24, 2024, and likely representing pneumonia and associated bronchitis.
[2025-01-02 17:52] LABS: Glucose - Point of Care 289 mg/dl (70-99)
[2025-01-02] MEDS: NEURONTIN 300 MG PO ×2 (18:03→22:51)
[2025-01-02] MEDS: LOVENOX 40 MG SC (18:04)
[2025-01-02] MEDS: NOVOLOG FLEXPEN-LOW RESISTANCE 3 UNITS SC (18:31)
[2025-01-02] MEDS: PULMICORT 0.5 MG INH (20:12)
[2025-01-02] MEDS: DECADRON 4 MG IV (20:51)
[2025-01-02] MEDS: FLOMAX 0.4 MG PO (20:51)
[2025-01-02] MEDS: MUCINEX 600 MG PO (20:51)
[2025-01-02 21:30] LABS: Glucose - Point of Care 312 mg/dl (70-99)
--- NOTE | 2025-01-02 21:46 | PTCARENOTE ---
Received pt from previous RN. Pt is AAOx3, flat, forgetful @ times. NSR on the monitor. Pt on 10L midflow O2 sat 90%, lungs diminished/exp wheeze, tachypneic/LARA and @ rest. Pt uses the urinal/incont @ times. BS 312, NANCI Macdonald notified, check
A1c on morning labs. Hygiene provided. Pt is laying in bed with call orse in reach. Safe environment maintained.
[2025-01-03] VITALS (20 sets, daily range): BP systolic 97–157; BP diastolic 42–86; PULSE 2–101; O2SAT 91–98; BMI 22.1
[2025-01-03] MEDS: DECADRON 4 MG IV ×3 (03:59→20:30)
[2025-01-03 04:46] LABS: B.E. 10.1 mmol/L; HCO3 35.6 mmol/L (21-28); PCO2 50 mmHg (35-48); PO2 106 mmHg (83-108); pH 7.46 (7.35-7.45)
[2025-01-03 04:48] LABS: O2 Therapy 10L/min
[2025-01-03 05:00] LABS: Hematocrit 39.3 % (39.0-52.0); Hemoglobin 12.6 g/dL (13.0-18.0); Mean Corp Hgb Conc. 32.1 g/dL (33.0-37.0); Mean Corpuscular Hgb 29.7 pg (27.0-31.0); Mean Corpuscular Volume 92.7 fL (80.0-94.0); Platelet Count 146 10^3/uL (130-400); Red Blood Cell Count 4.24 10^6/uL (4.70-6.10); Red Cell Dist. Width 11.9 % (11.5-14.5); White Blood Cell Count 9.3 10^3/uL (4.8-10.8)
[2025-01-03 05:49] LABS: Blood Urea Nitrogen 28 mg/dl (9-20); Calcium 8.1 mg/dl (8.4-10.2); Carbon Dioxide 31 mmol/L (22-30); Chloride 99 mmol/L (98-107); Estimated Creatinine Clearance 81 ml/min; Glucose 264 mg/dl (70-99); Magnesium 1.8 mg/dl (1.6-2.3); Potassium 4.3 mmol/L (3.5-5.1); Sodium 135 mmol/L (135-145); eGFR > 60.00
[2025-01-03] MEDS: DUONEB 3 ML INH ×4 (07:27→20:01)
[2025-01-03] MEDS: PULMICORT 0.5 MG INH ×2 (07:27→20:01)
[2025-01-03 08:20] LABS: Glycohemoglobin (HgbA1c) 7.2 % (4.0-5.6)
[2025-01-03 08:24] LABS: Glucose - Point of Care 213 mg/dl (70-99)
[2025-01-03] MEDS: NOVOLOG FLEXPEN-LOW RESISTANCE 2 UNITS SC ×2 (09:00→12:03)
[2025-01-03] MEDS: MUCINEX 600 MG PO ×2 (09:02→20:30)
[2025-01-03] MEDS: NEURONTIN 300 MG PO ×3 (09:02→20:30)
[2025-01-03] MEDS: LOW STRENGTH ASPIRIN 81 MG PO (09:02)
[2025-01-03] MEDS: CARDIZEM CD 120 MG PO (09:03)
[2025-01-03] MEDS: LIPITOR 40 MG PO (09:04)
[2025-01-03] MEDS: PROTONIX 40 MG PO (09:04)
[2025-01-03] MEDS: TAMIFLU 75 MG PO ×2 (09:04→20:30)
--- NOTE | 2025-01-03 09:05 | W.PN.HOSP.TC ---
Today's Communication/Plan
-
cont tamiflu
PT
wean O2 and steroids
Assessment / Plan
Assessment / Plan
pt is an 84 year old male
Acute on Chronic Hypoxic Respiratory Failure from Acute COPD Exacerbation due Acute Viral Bronchitis secondary to Influenza Type A (pt left AMA on 01/01 and returned 01/02 SOB)--on 8L of O2--cont tamiflu, IV steroids, nebs--finished zithromax the last
admission--holding further systemic ABX--cont acapella and IS--apprec pulm--At discharge, recommend triple therapy with LAMA/LABA and inhaled corticosteroid
active smoking--told needs to quit theresa with O2--Pt declined nicotine patch
Chronic HFpEF--no exacerbation--Monitor Is&Os and Daily Weights
Paroxysmal Atrial Fibrillation-Patient is not on anticoagulation likely due to fall risk--Continue diltiazem rate control--Continue aspirin
Hyponatremia--SIADH--improved
Hyperlipidemia--Continue atorvastatin
Diabetes Mellitus, Type II--Check LfnP1b--Kqsybhpo diabetic diet--Monitor sugars and continue coverage insulin--Suspect sugars running high due to steroids
Dysphagia--Speech previously recommended IDDSI 6 with mildly thickened liquids--Patient declines modified diet and understands the risk
GERD-Continue Protonix
Hx Prostate CA s/p Radiation--Continue Flomax
BPH--cont tamsulosin
small pericardial cardiac effusion on CT
DVT proph: Lovenox
Code Status: DNR
Anticipated Discharge: > 48 hours
Subjective/Interval History
-
Date of Service: January 03, 2025
pt again feeling fine--on 8L O2
asking about taking his flomax 4x/day despite that is not how it is supposed to be taken--also wants therapy
Objective Data
-
Labs:
Laboratory Results
01/03/25 01/03/25
04:07 04:47
WBC 9.3
Hgb 12.6 L
Hct 39.3
Plt Count 146
HCO3 35.6 H
Sodium 135
Potassium 4.3
Chloride 99
Carbon Dioxide 31 H
BUN 28 H
Creatinine 0.6 L
Glucose 264 H
Calcium 8.1 L
Vital Signs:
max temp for 24 hours
01/02/25
12:01
Temp 98.4 F
Vital Signs
Temp Pulse Resp BP Pulse Ox
97.8 F 72 17 142/78 97
01/03/25 08:11 01/03/25 09:03 01/03/25 07:29 01/03/25 09:03 01/03/25 07:29
I&O
01/02/25 01/03/25 01/04/25
06:59 06:59 06:59
Intake Total 410 / 410
Output Total 300 / 300
Balance 110 / 110
Review of Systems
-
All other systems: Reviewed and negative
Physical Exam
-
General: Well Developed, Well Nourished and No Apparent Distress
HEENT: Normocephalic, Atraumatic and Oxygen (8L)
Respiratory: Decreased Breath Sounds (all lung parikh)
Cardiac: Regular Rhythm and S1/S2; Negative Murmur
GI: Soft, Nontender, Nondistended and Normal Bowel Sounds
Musculoskeletal: No Clubbing, No Cyanosis and No Edema
Neuro: Awake
Psych: Calm
[2025-01-03] MEDS: FLOMAX 0.4 MG PO ×3 (09:07→20:30)
--- NOTE | 2025-01-03 09:42 | CM ---
Patient seen at bedside in IMU. Patient reports he lives at [facility] for the past 6 years, has supportive son Oscar [phone]. Pt reports he has a walker, w/c, nebulizer machine, home Oxygen and he is on 2.5 L NC of
supplemental O2 at baseline. Pt reports he is enrolled in [facility] community based services, receives 12 hours of caregiver services daily provided by [facility].Patient complained that he wanted more hours overnight but was unable to get them
and was turned down for MA. Patient aware that he may benefit from SNF if recommended by therapy. Pt reports he had [facility] in the past, Patient was referred to [facility] and accepted prior to patient leaving [facility] 01/01/25. Pt states that he plans to return
to his apartment at [facility] with [facility]. Patient asking about Bipap at home and asking questions about obtaining a bipap and help to set it up. CM will update physician. Patient PCP is unknown at this time and Patient uses the [facility] pharmacy in
[place]. CM will continue to follow for discharge planning needs.
Plan; SNF vs home with [facility]; will need referral for [facility] and watch for O2/Bipap needs.
--- NOTE | 2025-01-03 11:38 | PTCARENOTE ---
on walking rounds pt sleeping . 8 L mid flow as ordered. Pt uses Bipap at night. AC hs accu check
[2025-01-03 11:52] LABS: Glucose - Point of Care 203 mg/dl (70-99)
--- NOTE | 2025-01-03 15:00 | W.PN.PUL3 ---
Today's Communication / Plan
-
Tamiflu
BiPAP with sleep and wean down midflow nasal cannula during the day
Recheck ambulatory pulse oximetry prior to discharge to reassess O2 needs
Systemic steroids with wean as he clinically improves
Maintain euglycemia while on high-dose steroids
DuoNebs + budesonide
Mucolytics
Up OOB as tolerated
Case management consult to assure that he has BiPAP at home upon discharge
Pulmonary service will continue to follow along and outpatient follow-up will be arranged with Dr. Jesus
Assessment
-
Assessment: 84-year-old male with a past medical history of tobacco use, severe COPD, prostate cancer hyperlipidemia, chronic respiratory failure on home O2 at 2 L/min intermittently, biliary stone, history of UTI and DM type II who presents with
SOB. Patient recently hospitalized from 12/22 - 01/01/2025 and left AMA. He was hospitalized for acute on chronic hypoxic + hypercapnic respiratory failure due to a suspected COPD exacerbation. He was on systemic steroids, was treated with
Zithromax, and had required up to 10 L/min nasal cannula. He is now coming back as his SOB worsened last night. He was placed onto BiPAP in the ER. Flu swab was positive for influenza A. Labs significant for leukocytosis to 15.4, glucose 194,
procalcitonin <0.05 and COVID-19 antigen negative. He was given Decadron in the ER, DuoNebs and Tamiflu and admitted to the IMU. Pulmonary service now consulted for additional management/recommendations.
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
Impression:
#Acute on chronic respiratory failure with hypoxia due to influenza A pneumonia in the setting of severe COPD
#Influenza A pneumonia
#Leukocytosis - now resolved
#Metabolic alkalosis due to chronic hypercapnia
#DM type II complicated by hyperglycemia (HbA1c: 7.21 on 05/15/2024)
#Severe COPD on DuoNebs q6hr + budesonide BID, chronic prednisone 10 mg daily + home oxygen using 2-3 L/min with activity
#Chronic deconditioning/wheelchair-bound
#Tobacco use disorder
Plan:
- Patient recently hospitalized for an acute exacerbation of COPD and left AMA on 01/01/2025 -> he is now back with significant SOB and found to have Flu-A, and required continuous BiPAP on 01/02
- He is doing much better, wearing BiPAP with sleep and midflow nasal cannula during the day
- Blood gas this morning shows pH 7.46, pCO2 50, and this is likely because his baseline pCO2 is approximately 55�60
- He needs to continue with BiPAP with sleep and this should be continued upon discharge
- Consult CM to assure that he has BiPAP at home; this can also be managed in the outpatient setting as he follows with Dr. Jesus
- Continue with systemic steroids and wean as he clinically improves � currently on Decadron 4 mg IV q8hr
- Maintain euglycemia with goal BG >100 and <180 while on high-dose steroids; HbA1c: 7.2 on 01/03/2025
- DuoNebs QID with budesonide BID
- prn nebulized bronchodilators q4hr for breakthrough symptoms
- Maintain SpO2 88-95%
- Continue tamiflu for total of 5-10 days
- Bibasilar parenchymal opacities are similar to recent CXR from 12/24/2024, and likely is due to recent PNA with subsegmental atelectasis. No need for broad-spectrum antibiotics at this time but continue to closely monitor his SOB + degree of
hypoxia and trend WBC and monitor for fevers
- Incentive spirometer encouraged q1hr while awake
- Replete electrolytes with K>4, Mg>2
- Trend H/H and transfuse if needed to keep Hb>7g/dL; keep plt>20k, unless there is concern for bleeding then keep plt>50k
- DVT ppx: LMWH
Pulmonary service will continue to follow along. Ultimately patient should follow-up with us in the office with Dr. Jesus. Next appointment already scheduled for 01/26/2025 although this may need to be moved up depending how this hospital course
ensues.
Data:
CXR 01/02/2025:
Hyperinflated lungs compatible with emphysema.
Parenchymal opacities within both lower lungs, stable from most recent radiograph of December 24, 2024, and likely representing pneumonia and associated bronchitis.
Total time spent today was 37 minutes for this encounter. Time includes reviewing laboratory test/imaging results, reviewing pertinent medical records, obtaining and reviewing medical history, performing an appropriate exam, ordering medications,
tests and procedures. Time also includes documentation of this encounter, coordinating patient care and communicating with other healthcare professionals. Total time does not include separately billed tests performed on this date of service.
Subjective Data
-
Date of Service:
Date of Service: January 03, 2025
Chief Complaint: Pulmonary Follow Up
Subjective:
Patient was seen today at bedside (late note entry). He feels much better today. Wore BiPAP overnight on 12/6 cmH2O bled with 10 L/min. Now currently on 9 L/min and saturating 94% with heart rate 95 and BP 147/78. He feels that his shortness of
breath is much better today. Still having phlegm coming up. He says that he has a CPAP machine at home but that it is not working and he thinks that someone will help him get this set up after he is discharged.
Review of Systems
General: Other (Negative unless mentioned above)
Objective Data
Data Reviewed
Vital Signs / I&O / Oxygen:
Vital Signs
Temp Pulse Resp BP Pulse Ox
97.8 F 72 15 142/78 93
01/03/25 08:11 01/03/25 09:03 01/03/25 09:00 01/03/25 09:03 01/03/25 09:00
Intake and Output
01/02/25 01/03/25 01/04/25
06:59 06:59 06:59
Intake Total 410 / 410
Output Total 300 / 300
Balance 110 / 110
SaO2 93
Nasal Cannula flow liters per 8
minute
Physical Exam
General: Respiratory Distress (negative), Comfortable, Chills (negative) and Sweats (negative)
HEENT: Normocephalic and Anicteric
Cardiovascular: S1-S2, Rub (negative) and Peripheral Edema (negative)
Respiratory: Wheeze (negative), Crackles (Bibasilar), Rhonchi (negative), Non-Labored Respirations, Stridor (negative) and Other (Diminished breath sounds bilaterally)
GI: Soft, Non Distended, Non Tender and Normal Bowel Sounds
Neurology: AO x 3 and Tremors (negative)
Skin: Warm, Dry, Cyanosis (negative) and Jaundice (negative)
Labs/Micro/Reports
Lab Data
01/03/25 04:07
01/03/25 04:07
Laboratory Results
01/03/25
04:47
pH 7.46 H
pCO2 50 H
pO2 106
HCO3 35.6 H
O2 Delivery Level 10l/min
Microbiology
01/02/25 12:00 Nasal Swab Influenza Types A & B (BHUMI) - Final
Influenza A Positive, NAAT
[2025-01-03] MEDS: LOVENOX 40 MG SC (16:48)
[2025-01-03] MEDS: NOVOLOG FLEXPEN-LOW RESISTANCE 4 UNITS SC (16:49)
[2025-01-03 16:58] LABS: Glucose - Point of Care 328 mg/dl (70-99)
--- NOTE | 2025-01-03 18:25 | PTCARENOTE ---
Pt asking shayla tejada [facility] [place] tt
[2025-01-03 22:37] LABS: Glucose - Point of Care 307 mg/dl (70-99)
[2025-01-04] VITALS (22 sets, daily range): BP systolic 101–148; BP diastolic 51–107; PULSE 2–72; BMI 21.9
[2025-01-04] MEDS: NOVOLOG FLEXPEN 4 UNITS SC (00:08)
--- NOTE | 2025-01-04 01:35 | PTCARENOTE ---
Caring for pt overnight. aaox3, very pleasant. NSR, remains on 10LMF. SOB noticed at rest and exertion, though pt denies. VSS. OOB to chair. Bipap hs. NO other issues will monitor. BA on.
[2025-01-04] MEDS: DECADRON 4 MG IV ×2 (04:33→17:32)
[2025-01-04 05:19] LABS: Hematocrit 39.7 % (39.0-52.0); Hemoglobin 12.6 g/dL (13.0-18.0); Mean Corp Hgb Conc. 31.7 g/dL (33.0-37.0); Mean Corpuscular Volume 94.5 fL (80.0-94.0); Mean Platelet Volume 10.4 fL (7.4-10.4); Platelet Count 148 10^3/uL (130-400); Red Cell Dist. Width 11.9 % (11.5-14.5); White Blood Cell Count 8.7 10^3/uL (4.8-10.8)
[2025-01-04 05:26] LABS: ALT (SGPT) 25 U/L (0-50); AST (SGOT) 13 U/L (17-59); Albumin 2.7 g/dl (3.5-5.0); Alkaline Phosphatase 87 U/L (38-126); Blood Urea Nitrogen 30 mg/dl (9-20); Carbon Dioxide 34 mmol/L (22-30); Chloride 100 mmol/L (98-107); Estimated Creatinine Clearance 81 ml/min; Glucose 231 mg/dl (70-99); Magnesium 1.9 mg/dl (1.6-2.3); Potassium 4.3 mmol/L (3.5-5.1); Sodium 137 mmol/L (135-145); Total Bilirubin 0.5 mg/dl (0.2-1.3); Total Protein 4.9 g/dl (6.3-8.2); eGFR > 60.00
[2025-01-04] MEDS: PULMICORT 0.5 MG INH ×2 (07:18→19:55)
[2025-01-04] MEDS: DUONEB 3 ML INH ×4 (07:18→19:55)
[2025-01-04] MEDS: MUCINEX 600 MG PO ×2 (07:39→20:54)
[2025-01-04] MEDS: METAMUCIL, KONSYL 1 PACKET PO (07:39)
[2025-01-04] MEDS: NEURONTIN 300 MG PO ×3 (07:39→20:54)
[2025-01-04] MEDS: PROTONIX 40 MG PO (07:39)
[2025-01-04] MEDS: FLOMAX 0.4 MG PO ×3 (07:40→20:55)
[2025-01-04] MEDS: CARDIZEM CD 120 MG PO (07:40)
[2025-01-04] MEDS: LIPITOR 40 MG PO (07:40)
[2025-01-04] MEDS: TAMIFLU 75 MG PO ×2 (07:40→20:54)
[2025-01-04] MEDS: LOW STRENGTH ASPIRIN 81 MG PO (07:41)
[2025-01-04] MEDS: NOVOLOG FLEXPEN-LOW RESISTANCE 2 UNITS SC ×2 (07:46→13:56)
--- NOTE | 2025-01-04 07:48 | W.PN.HOSP.TC ---
Today's Communication/Plan
-
steroids, nebs, Tamiflu
wean O2 as able
Assessment / Plan
Assessment / Plan
pt is an 84 year old male with hx COPD, chronic hypoxic resp failure, atrial fibrillation, CHF, essential HTN, DM, prostate CA, admission 12/21-01/01 (acute COPD, acute on chronic hypoxic resp failure and left AMA) represents the following day with
shortness of breath. He was found to have Influenza A
Acute on Chronic Hypoxic Respiratory Failure from Acute COPD Exacerbation due Acute Viral Bronchitis secondary to Influenza Type A
(pt left AMA on 01/01 and returned 01/02 SOB)
-cont tamiflu (end date 01/07)
-IV steroids, nebs
-finished zithromax the last admission,holding further systemic ABX
-cont acapella and IS
-apprec pulm
-At discharge, recommend triple therapy with LAMA/LABA and inhaled corticosteroid
-per Pulm, BiPAP at DC
-*PT recommending SNF - patient refuses
active smoking--told needs to quit theresa with O2--Pt declined nicotine patch
Chronic HFpEF--no exacerbation--Monitor Is&Os and Daily Weights
Paroxysmal Atrial Fibrillation-Patient is not on anticoagulation likely due to fall risk--Continue diltiazem rate control--Continue aspirin
Hyponatremia--SIADH--improved
Hyperlipidemia--Continue atorvastatin
Diabetes Mellitus, Type II--Check [id number]--Lanfsvqp diabetic diet--Monitor sugars and continue coverage insulin--Suspect sugars running high due to steroids
Dysphagia--Speech previously recommended IDDSI 6 with mildly thickened liquids--Patient declines modified diet and understands the risk
GERD-Continue Protonix
Hx Prostate CA s/p Radiation--Continue Flomax
BPH--cont tamsulosin
small pericardial cardiac effusion on CT
DVT proph: Lovenox
Code Status: DNR
Anticipated Discharge: 24 - 48 hours
Subjective/Interval History
-
Date of Service: January 04, 2025
feeling better
Objective Data
-
Labs:
Laboratory Results
01/04/25
04:32
WBC 8.7
Hgb 12.6 L
Hct 39.7
Plt Count 148
Sodium 137
Potassium 4.3
Chloride 100
Carbon Dioxide 34 H
BUN 30 H
Creatinine 0.6 L
Glucose 231 H
Calcium 8.0 L
Total Bilirubin 0.5
AST 13 L
ALT 25
Alkaline Phosphatase 87
Vital Signs:
Vital Signs
Temp Pulse Resp BP Pulse Ox
97.6 F 70 18 148/59 94
01/04/25 03:31 01/04/25 07:40 01/04/25 07:21 01/04/25 07:40 01/04/25 07:21
I&O
01/03/25 01/04/25 01/05/25
06:59 06:59 06:59
Intake Total 410 / 410 450 / 450
Output Total 300 / 300 650 / 650
Balance 110 / 110 -200 / -200
Review of Systems
-
History Source: Patient
All other systems: Reviewed and negative
Physical Exam
-
General: Well Developed, Well Nourished and No Apparent Distress
HEENT: Normocephalic, Atraumatic and Oxygen (8L)
Respiratory: Wheezes (mild end expiratory )
Cardiac: Regular Rhythm and S1/S2; Negative Murmur
GI: Soft, Nontender, Nondistended and Normal Bowel Sounds
Musculoskeletal: No Clubbing, No Cyanosis and No Edema
Neuro: Awake
Psych: Calm
Data Reviewed
-
Diagnostic Radiology: Report Reviewed by me
Labs: Labs Reviewed by me
[2025-01-04 08:00] LABS: Glucose - Point of Care 203 mg/dl (70-99)
--- NOTE | 2025-01-04 08:13 | PTCARENOTE ---
Pt AAOx3 pleasant and cooperative. Sits at bedside to use urinal. Pt on 8L midflow. Bipap at night. lungs are diminished. AC HS ACCU check.R forearm int. Can make needs known.
--- NOTE | 2025-01-04 08:59 | W.PN.PUL3 ---
Today's Communication / Plan
-
Wean oxygen as able, maintain saturation greater than 89%
Decrease IV steroids
Increase activity, PT/OT
Continue antiviral therapy
Continue BiPAP
Case management to confirm home CPAP will be continued. Patient has been noncompliant in the past but now agrees to using
Assessment
-
Assessment: 84-year-old male with a past medical history of tobacco use, severe COPD, prostate cancer hyperlipidemia, chronic respiratory failure on home O2 at 2 L/min intermittently, biliary stone, history of UTI and DM type II who presents with
SOB. Patient recently hospitalized from 12/22 - 01/01/2025 and left AMA. He was hospitalized for acute on chronic hypoxic + hypercapnic respiratory failure due to a suspected COPD exacerbation. He was on systemic steroids, was treated with
Zithromax, and had required up to 10 L/min nasal cannula. He is now coming back as his SOB worsened last night. He was placed onto BiPAP in the ER. Flu swab was positive for influenza A. Labs significant for leukocytosis to 15.4, glucose 194,
procalcitonin <0.05 and COVID-19 antigen negative. He was given Decadron in the ER, DuoNebs and Tamiflu and admitted to the IMU. Pulmonary service now consulted for additional management/recommendations.
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
Impression:
#Acute on chronic respiratory failure with hypoxia due to influenza A pneumonia in the setting of severe COPD
#Influenza A pneumonia
#Leukocytosis - now resolved
#Metabolic alkalosis due to chronic hypercapnia
#DM type II complicated by hyperglycemia (HbA1c: 7.21 on 05/15/2024)
#Severe COPD on DuoNebs q6hr + budesonide BID, chronic prednisone 10 mg daily + home oxygen using 2-3 L/min with activity
#Chronic deconditioning/wheelchair-bound
#Tobacco use disorder
Plan:
- Patient recently hospitalized for an acute exacerbation of COPD and left AMA on 01/01/2025 -> he is now back with significant SOB and found to have Flu-A, and required continuous BiPAP on 01/02
- He is doing much better, wearing BiPAP with sleep and midflow nasal cannula during the day
- Blood gas this morning shows pH 7.46, pCO2 50, and this is likely because his baseline pCO2 is approximately 55�60
- He needs to continue with BiPAP with sleep and this should be continued upon discharge. Patient states he is interested in following through. He does have CPAP at home but has been noncompliant
- Consult CM to assure that he has BiPAP at home; this can also be managed in the outpatient setting as he follows with Dr. Jesus
- Continue with systemic steroids and wean as he clinically improves � currently on Decadron 4 mg IV q8hr, decrease to every 12 hours
- Maintain euglycemia with goal BG >100 and <180 while on high-dose steroids; HbA1c: 7.2 on 01/03/2025
- DuoNebs QID with budesonide BID
- prn nebulized bronchodilators q4hr for breakthrough symptoms
- Maintain SpO2 88-95%
- Continue tamiflu for total of 5-10 days
- Bibasilar parenchymal opacities are similar to recent CXR from 12/24/2024, and likely is due to recent PNA with subsegmental atelectasis. No need for broad-spectrum antibiotics at this time but continue to closely monitor his SOB + degree of
hypoxia and trend WBC and monitor for fevers
continue to wean oxygen as able
CT chest negative for PE.
Echocardiogram 12/25/2024 normal biventricular function, normal PA pressure
- Incentive spirometer encouraged q1hr while awake
- Replete electrolytes with K>4, Mg>2
- Trend H/H and transfuse if needed to keep Hb>7g/dL; keep plt>20k, unless there is concern for bleeding then keep plt>50k
- DVT ppx: LMWH
Disposition efforts
Data:
CXR 01/02/2025:
Hyperinflated lungs compatible with emphysema.
Parenchymal opacities within both lower lungs, stable from most recent radiograph of December 24, 2024, and likely representing pneumonia and associated bronchitis.
Total time spent today was 37 minutes for this encounter. Time includes reviewing laboratory test/imaging results, reviewing pertinent medical records, obtaining and reviewing medical history, performing an appropriate exam, ordering medications,
tests and procedures. Time also includes documentation of this encounter, coordinating patient care and communicating with other healthcare professionals. Total time does not include separately billed tests performed on this date of service.
Subjective Data
-
Date of Service:
Date of Service: January 04, 2025
Chief Complaint: Pulmonary Follow Up
Subjective:
Patient sitting in chair, without complaints. He denies chest pain, nausea, abdominal pain, lightheadedness, dizziness. He has some mild loose stool which is chronic because of his proctitis. He is on nasal cannula , In good spirits
Objective Data
Data Reviewed
Vital Signs / I&O / Oxygen:
Vital Signs
Temp Pulse Resp BP Pulse Ox
97.6 F 70 18 148/59 94
01/04/25 03:31 01/04/25 07:40 01/04/25 07:21 01/04/25 07:40 01/04/25 07:21
Intake and Output
01/03/25 01/04/25 01/05/25
06:59 06:59 06:59
Intake Total 410 / 410 450 / 450
Output Total 300 / 300 650 / 650
Balance 110 / 110 -200 / -200
SaO2 94
Nasal Cannula flow liters per 8
minute
Physical Exam
General: Comfortable
HEENT: Normocephalic and Anicteric
Cardiovascular: S1-S2, Regular Rhythm, Rub (negative) and Peripheral Edema (negative)
Respiratory: Wheeze (negative), Crackles (mild bibasilar), Rhonchi (negative), Non-Labored Respirations, Stridor (negative) and Other (Diminished breath sounds bilaterally)
GI: Soft, Non Distended, Non Tender and Normal Bowel Sounds
Neurology: Awake, Alert and No Motor Deficits
Skin: Warm, Dry, Cyanosis (negative) and Jaundice (negative)
Labs/Micro/Reports
Lab Data
01/04/25 04:32
01/04/25 04:32
Microbiology
01/02/25 12:00 Nasal Swab Influenza Types A & B (BHUMI) - Final
Influenza A Positive, NAAT
--- NOTE | 2025-01-04 11:55 | PTCARENOTE ---
Oxygen to 6l mid flow POX 93-94%
[2025-01-04 12:48] LABS: Glucose - Point of Care 216 mg/dl (70-99)
--- NOTE | 2025-01-04 13:15 | CM ---
Addendum entered by Skylar Henderson RN 01/04/25 15:58:
Spoke with Justino, patient's son; he agrees with high flow O2 concentrator, BiPAP, with resumption [facility] and caregivers.
Original Note:
Patient who resides at [facility] with Hx recent admit until 01/01 when left AMA, with Dx Acute on Chronic Hypoxic Respiratory Failure, COPD Exacerbation, Viral Bronchitis, Influenza Type A. O2 8 L midflow. BiPAP ordered.
Receiving IV Steroids, Tamiflu. PT/OT 01/03 recommend skilled rehab.
Met with patient and attempted to call son Justino while in room with patient however had to leave v/m message for son requested callback for d/c planning.
Patient stated he plans on going home at discharge, as he has the aides through [place] 12 hrs/day 7 days/week, who assist him. He says he feels like he has difficulty standing for a long period of time and wishes he could stand longer so he could
do meal prep in the kitchen.
Patient agrees to high flow O2 concentrator through [employer] and wants longer O2 tubing.
Patient agrees to home BiPAP and is aware CM is setting that up for him through [facility].
He asks CM to contact his son when closer to d/c so son can coordinate his aides/caregivers restarting.
Patient agrees to resuming [facility] at d/c.
Spoke with Andres Whipple; referral sent via [employer]. Sole emailed BiPAP form and verbiage for MD documentation---> sent to Dr Guthrie who responded that he will sign the form tomorrow.
Spoke with CANDI Malone; they will order the O2 from [facility] [employer] when closer to d/c home.
Plan fax BiPAP form & MD documentation to Andres.
Plan home with high flow O2 concentrator, BiPAP, with resumption [facility] and caregivers.
--- NOTE | 2025-01-04 13:57 | PTCARENOTE ---
Pt O2 to 4l
[2025-01-04 17:03] LABS: Glucose - Point of Care 283 mg/dl (70-99)
[2025-01-04] MEDS: NOVOLOG FLEXPEN-LOW RESISTANCE 3 UNITS SC (17:26)
[2025-01-04] MEDS: LOVENOX 40 MG SC (17:30)
[2025-01-04 22:22] LABS: Glucose - Point of Care 312 mg/dl (70-99)
[2025-01-04] MEDS: NOVOLOG FLEXPEN 5 UNITS SC (23:09)
[2025-01-05] VITALS (24 sets, daily range): BP systolic 103–139; BP diastolic 46–73; PULSE 2–98; O2SAT 91–93; BMI 22.6
[2025-01-05 01:40] LABS: Glucose - Point of Care 205 mg/dl (70-99)
[2025-01-05] MEDS: DECADRON 4 MG IV (05:26)
[2025-01-05] MEDS: DUONEB 3 ML INH ×4 (07:34→19:26)
[2025-01-05] MEDS: PULMICORT 0.5 MG INH ×2 (07:34→19:26)
[2025-01-05 07:44] LABS: Glucose - Point of Care 172 mg/dl (70-99)
--- NOTE | 2025-01-05 08:11 | W.PN.HOSP.TC ---
Addendum entered and electronically signed by Lucia Coker MD 01/05/25 12:53:
Patient is in need of oxygen at 2 liters/minute via nasal cannula continuously due to pulse oximetry of 88% on room air at rest. Patient is in need of oxygen on exertion due to pulse ox 87% room air with exertion. Patient was placed on 6LPM via NC
during ambulation with saturation 92%.
Patient is mobile within the home.
Oxygen will improve hypoxemia. Patient is mobile within the home. albuterol therapy has been discussed and is ineffective in treating hypoxemia related symptoms.
Original Note:
Today's Communication/Plan
-
O2 needs down to 3L - home O2 testing ordered; possible DC tomorrow
appreciate pulmonary and CM
Assessment / Plan
Assessment / Plan
pt is an 84 year old male with hx COPD, chronic hypoxic resp failure, atrial fibrillation, CHF, essential HTN, DM, prostate CA, admission 12/21-01/01 (acute COPD, acute on chronic hypoxic resp failure and left AMA) represents the following day with
shortness of breath. He was found to have Influenza A
Acute on Chronic Hypoxic Respiratory Failure from Acute COPD Exacerbation due Acute Viral Bronchitis secondary to Influenza Type A
(pt left AMA on 01/01 and returned 01/02 SOB)
-cont tamiflu (end date 01/07)
-IV steroids, nebs
-finished zithromax the last admission,holding further systemic ABX
-cont acapella and IS
-apprec pulm
-per Pulm, BiPAP at DC - being set up through CM
-*PT recommending SNF - patient refuses
-01/05: O2 needs down to 3L - home O2 testing ordered; possible DC tomorrow
active smoking--told needs to quit theresa with O2--Pt declined nicotine patch
Chronic HFpEF--no exacerbation--Monitor Is&Os and Daily Weights
Paroxysmal Atrial Fibrillation-Patient is not on anticoagulation likely due to fall risk--Continue diltiazem rate control--Continue aspirin
Hyponatremia--SIADH--improved
Hyperlipidemia--Continue atorvastatin
Diabetes Mellitus, Type II--Check [id number]--Hyvmizln diabetic diet--Monitor sugars and continue coverage insulin--Suspect sugars running high due to steroids
Dysphagia--Speech previously recommended IDDSI 6 with mildly thickened liquids--Patient declines modified diet and understands the risk
GERD-Continue Protonix
Hx Prostate CA s/p Radiation--Continue Flomax
BPH--cont tamsulosin
small pericardial cardiac effusion on CT
DVT proph: Lovenox
Code Status: DNR
Anticipated Discharge: 24 - 48 hours
Subjective/Interval History
-
Date of Service: January 05, 2025
feeling much better, down to 3 L
Objective Data
-
Vital Signs:
Vital Signs
Temp Pulse Resp BP Pulse Ox
97.2 F 84 17 127/67 95
01/05/25 04:13 01/05/25 07:38 01/05/25 07:38 01/05/25 06:00 01/05/25 07:38
I&O
01/04/25 01/05/25 01/06/25
06:59 06:59 06:59
Intake Total 450 / 450
Output Total 650 / 650 900 / 900
Balance -200 / -200 -900 / -900
Review of Systems
-
History Source: Patient
All other systems: Reviewed and negative
Physical Exam
-
General: Well Developed, Well Nourished and No Apparent Distress
HEENT: Normocephalic, Atraumatic and Oxygen (8L)
Respiratory: Decreased Breath Sounds
Cardiac: Regular Rhythm and S1/S2; Negative Murmur
GI: Soft, Nontender, Nondistended and Normal Bowel Sounds
Musculoskeletal: No Clubbing, No Cyanosis and No Edema
Neuro: Awake
Psych: Calm
Data Reviewed
-
Diagnostic Radiology: Report Reviewed by me
Labs: Labs Reviewed by me
[2025-01-05] MEDS: CARDIZEM CD 120 MG PO (08:22)
[2025-01-05] MEDS: NEURONTIN 300 MG PO ×3 (08:22→21:56)
[2025-01-05] MEDS: PROTONIX 40 MG PO (08:22)
[2025-01-05] MEDS: MUCINEX 600 MG PO ×2 (08:22→21:56)
[2025-01-05] MEDS: LIPITOR 40 MG PO (08:23)
[2025-01-05] MEDS: TAMIFLU 75 MG PO ×2 (08:23→21:55)
[2025-01-05] MEDS: METAMUCIL, KONSYL 1 PACKET PO (08:23)
[2025-01-05] MEDS: LOW STRENGTH ASPIRIN 81 MG PO (08:23)
[2025-01-05] MEDS: FLOMAX 0.4 MG PO ×2 (08:23→21:56)
[2025-01-05] MEDS: NOVOLOG FLEXPEN-LOW RESISTANCE 1 UNITS SC (08:26)
--- NOTE | 2025-01-05 08:26 | W.PN.PUL3 ---
Addendum entered and electronically signed by Cristina Guthrie MD 01/05/25 15:51:
Patient is an 84-year-old male with end-stage COPD. He has multiple ER and Hospital readmissions with shortness or breath, respiratory failure. Patient has a PaCO2 of 63 on 2 L of oxygen, requires oxygen therapy continuously at home. Patient
reports he gets short of breath with minimal exertion. Patient also limited because of significant joint pains and shortness of breath. Due to patient's underlying COPD, hypoventilation, patient is at risk for worsening chronic respiratory failure.
I have considered bilateral, bilevel ST, and bilevel VAPS THERAPY and they have all been ruled out due to the patient's worsening conditioning. Patient is now required unique mode of ventilation not offered on less costly options. He will require
device that will not fail in the event of a power failure and is also portable for mobility within the home as needed. Due to the patient's worsening condition I am prescribing noninvasive ventilation therapy to decrease the chance of continued on
plan expensive medical encounters including physician office visits, ER visits, urgent care treatment at Hospital readmissions. Fortunately, patient is tolerating BiPAP 12/6 with supplemental oxygen therapy and feels it helps him tremendously.
I will order Astral BIPAP 12/6 with 2L oxygen qHS
Original Note:
Today's Communication / Plan
-
Transition to oral prednisone with taper
Continue to wean oxygen, currently on 3 L
Case management to set up BiPAP at home. Patient feels BiPAP is helping him
Plan to continue BiPAP 12/6, decreased to 3 L at night
Encourage patient to take home current BiPAP mask
PT/OT, ambulate
Assessment
-
Assessment: 84-year-old male with a past medical history of tobacco use, severe COPD, prostate cancer hyperlipidemia, chronic respiratory failure on home O2 at 2 L/min intermittently, biliary stone, history of UTI and DM type II who presents with
SOB. Patient recently hospitalized from 12/22 - 01/01/2025 and left AMA. He was hospitalized for acute on chronic hypoxic + hypercapnic respiratory failure due to a suspected COPD exacerbation. He was on systemic steroids, was treated with
Zithromax, and had required up to 10 L/min nasal cannula. He is now coming back as his SOB worsened last night. He was placed onto BiPAP in the ER. Flu swab was positive for influenza A. Labs significant for leukocytosis to 15.4, glucose 194,
procalcitonin <0.05 and COVID-19 antigen negative. He was given Decadron in the ER, DuoNebs and Tamiflu and admitted to the IMU. Pulmonary service now consulted for additional management/recommendations.
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
Impression:
#Acute on chronic respiratory failure with hypoxia due to influenza A pneumonia in the setting of severe COPD
#Influenza A pneumonia
#Leukocytosis - now resolved
#Metabolic alkalosis due to chronic hypercapnia
#DM type II complicated by hyperglycemia (HbA1c: 7.21 on 05/15/2024)
#Severe COPD on DuoNebs q6hr + budesonide BID, chronic prednisone 10 mg daily + home oxygen using 2-3 L/min with activity
#Chronic deconditioning/wheelchair-bound
#Tobacco use disorder
Plan/recommendations:
At this time, patient much improved objectively and subjectively
Oxygen weaned down to 3 L
Chest exam with minimal crackles at base
Patient with adequate cough
Doppler study 01/04/2025 negative for bilateral DVT
Patient recently hospitalized for an acute exacerbation of COPD and left AMA on 01/01/2025 -> he is now back with significant SOB and found to have Flu-A, and required continuous BiPAP on 01/02, remains compliant
- He is doing much better, wearing BiPAP with sleep and midflow nasal cannula during the day. He is now agreeable to BiPAP at home
- He needs to continue with BiPAP with sleep and this should be continued upon discharge. Patient states he is interested in following through. He does have CPAP at home but has been noncompliant
- Plan will be to continue BiPAP at home; this can also be managed in the outpatient setting as he follows with Dr. Jesus
- Transition to oral prednisone with taper
- DuoNebs QID with budesonide BID
- prn nebulized bronchodilators q4hr for breakthrough symptoms
- Maintain SpO2 88-95%
Continue tamiflu for total of 5-10 days
- Bibasilar parenchymal opacities are similar to recent CXR from 12/24/2024, and likely is due to recent PNA with subsegmental atelectasis. No need for broad-spectrum antibiotics at this time but continue to closely monitor his SOB + degree of
hypoxia and trend WBC and monitor for fevers
continue to wean oxygen as able
CT chest negative for PE.
Echocardiogram 12/25/2024 normal biventricular function, normal PA pressure
Doppler negative for DVT
DVT ppx: LMWH
Encourage ambulation, assess home oxygen needs
Disposition efforts
Data:
CXR 01/02/2025:
Hyperinflated lungs compatible with emphysema.
Parenchymal opacities within both lower lungs, stable from most recent radiograph of December 24, 2024, and likely representing pneumonia and associated bronchitis.
Total time spent today was 37 minutes for this encounter. Time includes reviewing laboratory test/imaging results, reviewing pertinent medical records, obtaining and reviewing medical history, performing an appropriate exam, ordering medications,
tests and procedures. Time also includes documentation of this encounter, coordinating patient care and communicating with other healthcare professionals. Total time does not include separately billed tests performed on this date of service.
Subjective Data
-
Date of Service:
Date of Service: January 05, 2025
Chief Complaint: Pulmonary Follow Up
Subjective:
Patient feels wonderful. Feels breathing improved. Minimal cough, no hemoptysis, chest pain, lightheadedness, dizziness. Oxygen weaned down to 3 L
Objective Data
Data Reviewed
Vital Signs / I&O / Oxygen:
Vital Signs
Temp Pulse Resp BP Pulse Ox
97.2 F 89 17 139/67 95
01/05/25 04:13 01/05/25 08:22 01/05/25 07:38 01/05/25 08:22 01/05/25 07:38
Intake and Output
01/04/25 01/05/25 01/06/25
06:59 06:59 06:59
Intake Total 450 / 450
Output Total 650 / 650 900 / 900
Balance -200 / -200 -900 / -900
SaO2 95
Nasal Cannula flow liters per 3
minute
Physical Exam
General: Comfortable
HEENT: Normocephalic and Anicteric
Cardiovascular: S1-S2, Regular Rhythm, Rub (negative) and Peripheral Edema (negative)
Respiratory: Wheeze (negative), Crackles (mild bibasilar), Rhonchi (negative), Non-Labored Respirations, Stridor (negative) and Other (Diminished breath sounds bilaterally)
GI: Soft, Non Distended, Non Tender and Normal Bowel Sounds
Neurology: Awake, Alert and No Motor Deficits
Skin: Warm, Dry, Cyanosis (negative) and Jaundice (negative)
Labs/Micro/Reports
Lab Data
01/04/25 04:32
01/04/25 04:32
Microbiology
01/02/25 12:00 Nasal Swab Influenza Types A & B (BHUMI) - Final
Influenza A Positive, NAAT
--- NOTE | 2025-01-05 10:21 | PN.CDI ---
CDI
- -
CDI:
Physician Documentation Request
Admit Date: 01/02/25 13:32
Dear Doctor Sheela,
Patient admitted with Influenza A.
01/02 Nursing skin assessment, 'Stage 2 upper buttock pressure injury, POA.'
Physician documentation of the type and location of wounds is required for compliant documentation. Based on the above clinical findings and your assessment, please provide the following in your progress note:
Location of the ulcer/wound, including laterality.
Type (etiology) of ulcer/wound:
- Pressure (decubitus) ulcer
- Other
- Unable to determine
For a pressure ulcer, please also include the stage* of the ulcer:
- Stage 1 - Skin intact, non-blanchable redness
- Stage 2 - Partial thickness loss of dermis, includes intact or open blister
- Stage 3 - Full thickness tissue not including bone, tendon or muscle
- Stage 4 - Full thickness tissue loss, including exposed bone, tendon or muscle
- Unstageable - Full thickness loss in which the base of the ulcer is covered by slough (yellow, noel, reed, green or brown) and/or eschar (noel, brown or black) in the wound bed.
- Unable to determine
Use of terms such as suspected, likely, concern for, or probable (associated with a specific diagnosis that is being evaluated, monitored, or treated as if it exists) are acceptable and can be coded in the inpatient setting, when documented at the
time of discharge.
Thank you,
Iveth VILLAR,RN,CCDS
CDI Specialist
Available via [place] text
Please use your independent medical judgment in providing your response.
*Source: National Pressure Ulcer Advisory Panel (NPUAP)
--- NOTE | 2025-01-05 11:05 | CM ---
Addendum entered by Skylar Henderson RN 01/05/25 16:17:
Faxed Dr Guthrie note to [facility]- they will order BiPAP for tomorrow. Patient needs to be discharged by 2pm tomorrow so [facility] can do BiPAP teaching at home with family. [facility] will call the son.
Bozena CHRISTOPHER ordered high flow O2 concentrator.
Plan home with high flow O2 concentrator, with BiPAP, with resumption [facility] and caregivers.
Original Note:
Patient who resides at [facility] with Hx recent admit until 01/01 when left AMA, with Dx Acute on Chronic Hypoxic Respiratory Failure, COPD Exacerbation, Viral Bronchitis, Influenza Type A. O2 3 L. BiPAP. Receiving Tamiflu.
PT/OT 01/03 recommend skilled rehab. Home O2 Assessment ordered today- pending.
Per Dr Coker notes, possible d/c tomorrow.
BiPAP form signed by Dr Guthrie and faxed to Sole at [facility]. Will fax MD documentation for home BiPAP once available.
Referral to [facility] Liaison with message: Unsure of need for high flow concentrator as O2 needs have decreased.
Message to Lyndsey PT & Moni OT to please see patient again today.
Plan fax MD documentation for BiPAP to [facility].
Plan home possibly with high flow O2 concentrator, with BiPAP, with resumption [facility] and caregivers.
[2025-01-05 12:30] LABS: Glucose - Point of Care 213 mg/dl (70-99)
--- NOTE | 2025-01-05 13:01 | VNURNOTE ---
Updated home 02 testing, Rx, clinicals faxed to [facility]. . Patient is current with them. Left message with rep Justino Alvarado notifying of current patient, need for larger stationary home 02 concentrator, and potential DC
tomorrow- left message.
[2025-01-05] MEDS: NOVOLOG FLEXPEN-LOW RESISTANCE 2 UNITS SC (13:50)
--- NOTE | 2025-01-05 15:23 | PTCARENOTE ---
Patient AOx3. Patient is forgetful at times. Bed alarm and chair alarm on and audible. Patient has chronic L arm weakness. 4L NC. Patient has LARA. NSR with PVC's on monitor. Patient uses urinal. Assist x1 when OOB. Patient tolerating regular diet.
Call rose within reach, bed in lowest position, and bed of wheels locked.
--- NOTE | 2025-01-05 16:11 | VNURNOTE ---
Updated bipap note faxed to S[facility] at [facility].
Spoke with Justino at [facility]. He will reach out today to schedule home delivery. Spoke with patient's son Justino - he is aware of pending Bipap and new (larger) stationary home 02 concentrator. He stated he has already moved old 02 concentrator and has
made apt dev manager aware of delivery.
Patient must be DC'ed home prior to 1400 in order for [facility] RT to set up bipap at home.
[2025-01-05] MEDS: LOVENOX 40 MG SC (17:20)
[2025-01-05] MEDS: NOVOLOG FLEXPEN-LOW RESISTANCE 3 UNITS SC (17:22)
[2025-01-05 17:33] LABS: Glucose - Point of Care 282 mg/dl (70-99)
[2025-01-05 21:31] LABS: Glucose - Point of Care 275 mg/dl (70-99)
[2025-01-06] VITALS (8 sets, daily range): BP systolic 110–159; BP diastolic 55–74; PULSE 1–71; BMI 21.7
--- NOTE | 2025-01-06 05:59 | DOWNTIME ---
There was a [employer] Client [employer] Production Downtime on 01/06/2025 from 0100 to 01/07/2024 at 0420 . Downtime documentation of patient's care, including medication administrations, has been reconciled in the electronic record per guidelines. Refer to the
patient's paper chart under the miscellaneous tab to see printed paper medication records and downtime forms.
--- NOTE | 2025-01-06 06:29 | PTCARENOTE ---
Patient wore his Bipap HS. now on 4L this AM. denies any pain. No gi/gu complaints. NSR w/ PVCs on tele. turns self while in bed. foam to sacrum and right man. purple bruising to arms. voids in urinal at edge of bed. Droplet precautions in place.
Call rose within reach. pt calls appropriately
[2025-01-06] MEDS: DUONEB 3 ML INH ×2 (07:22→10:52)
[2025-01-06] MEDS: PULMICORT 0.5 MG INH (07:22)
--- NOTE | 2025-01-06 07:45 | W.PN.HOSP.TC ---
Addendum entered and electronically signed by Lucia Coker MD 01/06/25 11:14:
Stage 2 upper buttock pressure injury, POA
-appreciate wound care
Original Note:
Today's Communication/Plan
-
ready for discharge today
Assessment / Plan
Assessment / Plan
pt is an 84 year old male with hx COPD, chronic hypoxic resp failure, atrial fibrillation, CHF, essential HTN, DM, prostate CA, admission 12/21-01/01 (acute COPD, acute on chronic hypoxic resp failure and left AMA) represents the following day with
shortness of breath. He was found to have Influenza A
Acute on Chronic Hypoxic Respiratory Failure from Acute COPD Exacerbation due Acute Viral Bronchitis secondary to Influenza Type A
(pt left AMA on 01/01 and returned 01/02 SOB)
-cont tamiflu (will have completed 5 days this evening)
-DC on prednisone taper
-finished zithromax the last admission,holding further systemic ABX
-cont acapella and IS
-apprec pulm
-per Pulm, BiPAP at DC - set up by CM
-*PT recommending SNF - patient refuses
-01/05: O2 needs down to 3L - home O2 testing ordered; possible DC tomorrow
active smoking--told needs to quit theresa with O2--Pt declined nicotine patch
patient states hasn't smoked in 2 months
Chronic HFpEF--no exacerbation--Monitor Is&Os and Daily Weights
Paroxysmal Atrial Fibrillation-Patient is not on anticoagulation likely due to fall risk--Continue diltiazem rate control--Continue aspirin
Hyponatremia--SIADH--improved
Hyperlipidemia--Continue atorvastatin
Diabetes Mellitus, Type II--Check [id number]--Enepuwbb diabetic diet--Monitor sugars and continue coverage insulin--Suspect sugars running high due to steroids
Dysphagia--Speech previously recommended IDDSI 6 with mildly thickened liquids--Patient declines modified diet and understands the risk
GERD-Continue Protonix
Hx Prostate CA s/p Radiation--Continue Flomax
BPH--cont tamsulosin
small pericardial cardiac effusion on CT
DVT proph: Lovenox
Code Status: DNR
Anticipated Discharge: Today
Subjective/Interval History
-
Date of Service: January 06, 2025
feeling well, wants to go home
no pain
Objective Data
-
Vital Signs:
Vital Signs
Temp Pulse Resp BP Pulse Ox
97.8 F 81 20 123/62 95
01/06/25 06:37 01/06/25 07:25 01/06/25 07:25 01/06/25 06:00 01/06/25 07:25
I&O
01/05/25 01/06/25 01/07/25
06:59 06:59 06:59
Intake Total 960 / 960
Output Total 900 / 900 1575 / 1575
Balance -900 / -900 -615 / -615
Review of Systems
-
History Source: Patient
All other systems: Reviewed and negative
Physical Exam
-
General: Well Developed, Well Nourished and No Apparent Distress
HEENT: Normocephalic, Atraumatic and Oxygen (4L)
Respiratory: Decreased Breath Sounds
Cardiac: Regular Rhythm and S1/S2; Negative Murmur
GI: Soft, Nontender, Nondistended and Normal Bowel Sounds
Musculoskeletal: No Clubbing, No Cyanosis and No Edema
Neuro: Awake and AO x 3
Psych: Calm
Data Reviewed
-
Diagnostic Radiology: Report Reviewed by me
Labs: Labs Reviewed by me
--- NOTE | 2025-01-06 08:00 | W.DS.TRANS ---
DC Summary - [facility]
-
Discharge Instructions:
Discharge Diagnosis/Procedures Influenza, Acute COPD Exacerbation
Diet Regular
Activity As tolerated
Additional Activity 6L O2 with activity, 2L at rest
Driving Restrictions No driving
Bathing Restrictions None
Other Services VN,PT,OT
Instructions:
Stand-Alone Forms:
Changes to Home Medications: Yes
Discharge Medications:
DC Medications w/original date entered in Diurnal
atorvastatin 40 mg tablet 40 mg PO DAILY High cholesterol #30 tabs 06/04/23
diltiazem HCl 120 mg capsule,extended release 24 hr 120 mg PO DAILY Arrhythmia #30 caps 06/04/23
albuterol sulfate 2.5 mg/3 mL (0.083 %) solution for nebulization 2.5 mg inhalation R Q6HPRN PRN wheezing 11/07/23
budesonide 0.5 mg/2 mL suspension for nebulization 0.5 mg inhalation R BID Lung/Breathing Issues 05/13/24
omeprazole 20 mg capsule,delayed release 20 mg PO DAILY Gastrointestinal Issue 05/13/24
tamsulosin 0.4 mg capsule 0.4 mg PO BID Urinary issue 05/13/24
aspirin 81 mg chewable tablet 81 mg PO DAILY #0 tabs 05/16/24
gabapentin 300 mg capsule 300 mg PO TID Pain 12/21/24
guaifenesin 600 mg tablet, extended release 12 hr 600 mg PO Q12 #0 tabs 01/01/25
ipratropium 0.5 mg-albuterol 3 mg (2.5 mg base)/3 mL nebulization soln 3 ml inhalation R QID PRN shortness of breath or wheezing #90 mL 01/06/25
oseltamivir 75 mg capsule 75 mg PO ONCE #1 cap 01/06/25
prednisone 10 mg tablet See Rx Instructions .Route .COMPLEX #45 tabs 01/06/25
Home Medication Changes
You have one more dose of Tamiflu this evening to complete a 5 day course.
Albuterol nebulizer is replaced with ipratropium-albuterol (duonebs). Take every 6 hours over next 3 days then can do as needed.
Continue Prednisone taper (which was prescribed last admission) - please start at the 30mg dosing x 3 days then 20mg x 3 days then 10mg x 3 days then stop
Pending Results: No
[2025-01-06] MEDS: FLOMAX 0.4 MG PO (08:26)
[2025-01-06] MEDS: LIPITOR 40 MG PO (08:26)
[2025-01-06] MEDS: NEURONTIN 300 MG PO (08:26)
[2025-01-06] MEDS: LOW STRENGTH ASPIRIN 81 MG PO (08:26)
[2025-01-06] MEDS: DELTASONE 30 MG PO (08:26)
[2025-01-06] MEDS: MUCINEX 600 MG PO (08:26)
[2025-01-06] MEDS: TAMIFLU 75 MG PO (08:26)
[2025-01-06] MEDS: NOVOLOG FLEXPEN-LOW RESISTANCE 1 UNITS SC (08:27)
[2025-01-06] MEDS: METAMUCIL, KONSYL 1 PACKET PO (08:27)
[2025-01-06] MEDS: CARDIZEM CD 120 MG PO (08:27)
[2025-01-06] MEDS: PROTONIX 40 MG PO (08:27)
--- NOTE | 2025-01-06 08:30 | W.PN.PUL3 ---
Today's Communication / Plan
-
Continue with nebulized budesonide, DuoNebs as outpatient
Complete 5 days of Tamiflu
Prednisone taper
BiPAP to be set up at home, discussed with case management. Paperwork filled out
Will require short-term follow-up with pulmonary. Patient high risk for readmission
Assessment
-
Assessment: 84-year-old male with a past medical history of tobacco use, severe COPD, prostate cancer hyperlipidemia, chronic respiratory failure on home O2 at 2 L/min intermittently, biliary stone, history of UTI and DM type II who presents with
SOB. Patient recently hospitalized from 12/22 - 01/01/2025 and left AMA. He was hospitalized for acute on chronic hypoxic + hypercapnic respiratory failure due to a suspected COPD exacerbation. He was on systemic steroids, was treated with
Zithromax, and had required up to 10 L/min nasal cannula. He is now coming back as his SOB worsened last night. He was placed onto BiPAP in the ER. Flu swab was positive for influenza A. Labs significant for leukocytosis to 15.4, glucose 194,
procalcitonin <0.05 and COVID-19 antigen negative. He was given Decadron in the ER, DuoNebs and Tamiflu and admitted to the IMU. Pulmonary service now consulted for additional management/recommendations.
Chronic conditions INTERNIST: Severe COPD, prostate cancer, hyperlipidemia, chronic respiratory failure on home O2 at 2 L/min intermittently, history of sepsis, biliary stone, hypertension, history of UTI, DM type II
Impression:
#Acute on chronic respiratory failure with hypoxia due to influenza A pneumonia in the setting of severe COPD
#Influenza A pneumonia
#Leukocytosis - now resolved
#Metabolic alkalosis due to chronic hypercapnia
#DM type II complicated by hyperglycemia (HbA1c: 7.21 on 05/15/2024)
#Severe COPD on DuoNebs q6hr + budesonide BID, chronic prednisone 10 mg daily + home oxygen using 2-3 L/min with activity
#Chronic deconditioning/wheelchair-bound
#Tobacco use disorder
Plan/recommendations:
At this time, patient much improved objectively and subjectively
Oxygen presently 4 L, which is his baseline
Chest exam with minimal crackles at base
Patient with adequate cough
Doppler study 01/04/2025 negative for bilateral DVT
Patient recently hospitalized for an acute exacerbation of COPD and left AMA on 01/01/2025 -> he is now back with significant SOB and found to have Flu-A, and required continuous BiPAP on 01/02, remains compliant
- He is doing much better, wearing BiPAP with sleep and midflow nasal cannula during the day. He is now agreeable to BiPAP at home
- He needs to continue with BiPAP with sleep and this should be continued upon discharge. Patient states he is interested in following through. He does have CPAP at home but has been noncompliant
- Plan will be to continue BiPAP at home; this can also be managed in the outpatient setting as he follows with Dr. Jesus
- Transition to oral prednisone with taper
- DuoNebs QID with budesonide BID
- prn nebulized bronchodilators q4hr for breakthrough symptoms
- Maintain SpO2 88-95%
Continue tamiflu for total of 5
- Bibasilar parenchymal opacities are similar to recent CXR from 12/24/2024, and likely is due to recent PNA with subsegmental atelectasis. No need for broad-spectrum antibiotics at this time but continue to closely monitor his SOB + degree of
hypoxia and trend WBC and monitor for fevers
continue to wean oxygen as able
CT chest negative for PE.
Echocardiogram 12/25/2024 normal biventricular function, normal PA pressure
Doppler negative for DVT
DVT ppx: LMWH
Encourage ambulation, assess home oxygen needs
Disposition efforts
Okay for discharge today. Patient will require pulmonary follow-up in the short-term
Data:
CXR 01/02/2025:
Hyperinflated lungs compatible with emphysema.
Parenchymal opacities within both lower lungs, stable from most recent radiograph of December 24, 2024, and likely representing pneumonia and associated bronchitis.
Total time spent today was 37 minutes for this encounter. Time includes reviewing laboratory test/imaging results, reviewing pertinent medical records, obtaining and reviewing medical history, performing an appropriate exam, ordering medications,
tests and procedures. Time also includes documentation of this encounter, coordinating patient care and communicating with other healthcare professionals. Total time does not include separately billed tests performed on this date of service.
Subjective Data
-
Date of Service:
Date of Service: January 06, 2025
Chief Complaint: Pulmonary Follow Up
Subjective:
Patient is feeling great. Has mild cough denies chest pain, shortness of breath, nausea, abdominal pain. Feels BiPAP is helping tremendously. Anxious for discharge. He states he is ambulating in the room without difficulty. Currently on 3 to 4
L 93%
Objective Data
Data Reviewed
Vital Signs / I&O / Oxygen:
Vital Signs
Temp Pulse Resp BP Pulse Ox
97.8 F 93 20 134/55 95
01/06/25 06:37 01/06/25 08:27 01/06/25 07:25 01/06/25 08:27 01/06/25 07:25
Intake and Output
01/05/25 01/06/25 01/07/25
06:59 06:59 06:59
Intake Total 960 / 960
Output Total 900 / 900 1575 / 1575
Balance -900 / -900 -615 / -615
SaO2 95
Nasal Cannula flow liters per 4
minute
Physical Exam
General: Comfortable
HEENT: Normocephalic and Anicteric
Cardiovascular: S1-S2, Regular Rhythm, Rub (negative) and Peripheral Edema (negative)
Respiratory: Wheeze (negative), Crackles (mild bibasilar), Rhonchi (negative), Non-Labored Respirations, Stridor (negative) and Other (Diminished breath sounds bilaterally)
GI: Soft, Non Distended, Non Tender and Normal Bowel Sounds
Neurology: Awake, Alert and No Motor Deficits
Skin: Warm, Dry, Cyanosis (negative) and Jaundice (negative)
Labs/Micro/Reports
Lab Data
01/04/25 04:32
01/04/25 04:32
[2025-01-06 08:38] LABS: Glucose - Point of Care 150 mg/dl (70-99)
--- NOTE | 2025-01-06 08:44 | VNURNOTE ---
Spoke with son Justino to follow up on home 02. Per son, DME co attempted to deliver 02 yesterday after 7pm and no one was at apt to accept it. 02 was not delivered. Explained to son that patient cannot go home unless oxygen delivered at home first
and someone must be there to accept the equip. Left message with Justino at [facility] to contact son to arrange delivery today before 1400.
--- NOTE | 2025-01-06 12:27 | W.DCSUMMARY ---
Discharge Summary
Discharge Data
Date of Admission: 01/02/25
Date of Discharge: 01/06/25
-
Pending Results: No
Hospital Course
Discharging Physician : Dr. Lucia Coker
Disposition : Home with Home Health
Principal Discharge diagnosis : Influenza, Acute COPD Exacerbation
Hospital Course :
Mr. Emilio Gonzalez is a 84 year old male with hx COPD, chronic hypoxic resp failure, atrial fibrillation, CHF, essential HTN, DM, prostate CA, admission 12/21-01/01 (acute COPD, acute on chronic hypoxic resp failure and left AMA) represents the
following day with shortness of breath. He required BiPAP in the ER. Labs significant for WBC 15.4, procalcitonin < 0.05. Influenza positive. He was admitted to medicine with Pulmonary consulting. He received Tamiflu for Influenza and continued
on nebulizers and steroids for COPD exacerbation. His oxygen needs were weaned down, he requires 2L at rest and 6L with exertion. He is discharged with prescriptions to complete Tamiflu course and he will complete Prednisone course prescribed last
admission. He is also set up with home BiPAP. He will follow as outpatient with PCP and Pulmonary.
Time spent on discharge was 35 minutes.
Important imaging findings :
CXR 01/02/25
IMPRESSION:
Hyperinflated lungs compatible with emphysema.
opacities within both lower lungs, stable from most recent radiograph of December 24, 2024, and likely representing pneumonia and associated bronchitis.
LE US
IMPRESSION: No evidence of deep venous thrombosis of the lower extremities bilaterally.
No interval change.
Procedure findings :
Discharge Plan
-
Patient Disposition: Home with Home Care
Discharge Diagnosis/Procedures: Influenza, Acute COPD Exacerbation
Diet: Regular
Activity: As tolerated
Additional Activity: 6L O2 with activity, 2L at rest
Driving Restrictions: No driving
Bathing Restrictions: None
Other Services: VN, PT and OT
Referrals:
Jesus-Domingo,Ej, MD [Active] - in two to three weeks (needs appt in 2 weeks ([facility] or [facility]))
UNKNOWN,NO INTERVIEW [Family Provider] - in less than 1 week
Additional Discharge Medication Instructions: You have one more dose of Tamiflu this evening to complete a 5 day course.
Albuterol nebulizer is replaced with ipratropium-albuterol (duonebs). Take every 6 hours over next 3 days then can do as needed.
Continue Prednisone taper (which was prescribed last admission) - please start at the 30mg dosing x 3 days then 20mg x 3 days then 10mg x 3 days then stop
Prescriptions:
New
oseltamivir 75 mg Capsule
75 mg PO ONCE Qty: 1 0RF
Rx Instructions:
Take your last dose evening of 01/06
ipratropium-albuterol 0.5 mg-3 mg(2.5 mg base)/3 mL Solution For Nebulization
3 ml inhalation R QID PRN (Reason: shortness of breath or wheezing) Qty: 90 0RF
Continued
atorvastatin 40 MG tablet
40 mg PO DAILY Qty: 30 0RF
diltiazem HCl 120 MG capsule,extended release 24hr
120 mg PO DAILY Qty: 30 0RF
albuterol sulfate 2.5 mg /3 mL (0.083 %) Solution For Nebulization
2.5 mg INHALATION R Q6HPRN PRN (Reason: wheezing)
budesonide 0.5 mg/2 mL Suspension For Nebulization
0.5 mg INHALATION R BID
tamsulosin 0.4 MG capsule
0.4 mg PO BID
omeprazole 20 MG capsule,delayed release(DR/EC)
20 mg PO DAILY
aspirin 81 mg Tablet,Chewable
81 mg PO DAILY Qty: 0 0RF
gabapentin 300 mg Capsule
300 mg PO TID
guaifenesin 600 mg Tablet Extended Release 12hr
600 mg PO Q12 Qty: 0 0RF
Changed
prednisone 10 mg Tablet
See Rx Instructions .ROUTE .COMPLEX Qty: 45 0RF
Rx Instructions:
30 mg daily x3 days, 20 mg daily x3 days,
10 mg daily x3 days
Discontinued
albuterol sulfate 90 mcg/actuation Hfa Aerosol Inhaler
2 puff INHALATION R Q6HPRN PRN (Reason: wheezing)
Discharge Orders:
Discharge Patient (As Directed); Ordered 01/06/25
Ordered By: Lucia Coker
Discharge Date and Time
Print Language: FRISIAN
--- NOTE | 2025-01-06 12:38 | CM ---
CM reviewed chart and noted dc order
Calls with son and [employer]
Confirmed O2 concentrator was delivered and set up at home with son
Plan for son to transport pt home at 1330 today
[employer] to deliver bipap at home this afternoon
[facility] aware
Bedside update to pt- he is aware of plan
IMM verbally reviewed- copy provided
Discharge Disposition- hoem with [facility], new high flow O2 concentrator ([employer]) and new bipap ([employer]), son transport (1330 arrival)
[2025-01-06 12:53] LABS: Glucose - Point of Care 150 mg/dl (70-99)
[2025-01-06] MEDS: NOVOLOG FLEXPEN-LOW RESISTANCE SC (12:57)
--- NOTE | 2025-01-06 14:09 | PTCARENOTE ---
Pt discharged to home with son transporting. O2 company delivered large tank without a daniels. Son brought smaller tank to hospital and pt will use that for transport. Pt will plug into concentrator at home. Pt expressed understanding of all
medications and which he is required to sisal picker at the pharmacy.
== END 2025-01-06 14:19 | disposition home health service (06) | DRG 193 ==
LOC: IMU 13:32
PROVIDERS: Internal Medicine; Physician Assistant; Physician Assistant Medical; ADMITTING PHYSICIAN Internal Medicine; ATTENDING PHYSICIAN Student in an Organized Health Care Education/Training Program; CONSULT PHYSICIAN Internal Medicine Critical Care Medicine; EMERGENCY PHYSICIAN Emergency Medicine
DX: J10.1 Influenza due to other identified influenza virus with other respiratory manifestations (principal); J96.21 Acute and chronic respiratory failure with hypoxia; J96.22 Acute and chronic respiratory failure with hypercapnia; J44.1 Chronic obstructive pulmonary disease with (acute) exacerbation; I50.32 Chronic diastolic (congestive) heart failure; I31.39 Other pericardial effusion (noninflammatory); E22.2 Syndrome of inappropriate secretion of antidiuretic hormone; E87.3 Alkalosis; J44.0 Chronic obstructive pulmonary disease with (acute) lower respiratory infection; I48.0 Paroxysmal atrial fibrillation; E11.9 Type 2 diabetes mellitus without complications; J20.8 Acute bronchitis due to other specified organisms; L89.322 Pressure ulcer of left buttock, stage 2; L89.312 Pressure ulcer of right buttock, stage 2; Z66 Do not resuscitate; Z79.52 Long term (current) use of systemic steroids; Z99.3 Dependence on wheelchair
CPT/HCPCS: 36600; 71045; 80048; 80053; 82805; 82962; 83036; 83735; 83880; 84145; 84484; 85025; 85027; 87502; 87811; 93005; 93970; 94640; 94660; 96374; 97116; 97163; 97167; 97530; 97535; 99285

== ENCOUNTER 2025-07-13 02:25 | Inpatient (IN) | payer OTHER, SELFPAY ==
[2025-07-13] VITALS (8 sets, daily range): BP systolic 115–145; BP diastolic 54–82; PULSE 93; O2SAT 94; BMI 20.3; BMI 19.8
[2025-07-13 00:48] LABS: COVID-19 Antigen Negative (Negative)
[2025-07-13 00:49] LABS: Hematocrit 50.9 % (39.0-52.0); Hemoglobin 15.5 g/dL (13.0-18.0); Mean Corp Hgb Conc. 30.5 g/dL (33.0-37.0); Mean Corpuscular Volume 92.5 fL (80.0-94.0); Nucleated Red Blood Cells % 0 % (-); Platelet Count 157 10^3/uL (130-400); Red Cell Dist. Width 14.2 % (11.5-14.5)
[2025-07-13 00:57] LABS: D-Dimer 0.58 ug/mlFEU (0.00-0.50)
[2025-07-13 01:06] LABS: ALT (SGPT) 17 U/L (0-50); AST (SGOT) 17 U/L (17-59); Albumin 3.7 g/dl (3.5-5.0); Alkaline Phosphatase 93 U/L (38-126); Blood Urea Nitrogen 21 mg/dl (9-20); Calcium 9.1 mg/dl (8.4-10.2); Carbon Dioxide 36 mmol/L (22-30); Chloride 102 mmol/L (98-107); Estimated Creatinine Clearance 68 ml/min; Glucose 143 mg/dl (70-99); Magnesium 1.9 mg/dl (1.6-2.3); Potassium 4.3 mmol/L (3.5-5.1); Sodium 142 mmol/L (135-145); Total Protein 5.9 g/dl (6.3-8.2); eGFR > 60.00
--- NOTE | 2025-07-13 01:26 | ED.GENMED ---
History of Present Illness
General
Chief Complaint: Breathing Problem
Source: patient
Exam Limitations: none
Time Seen by Provider: 07/13/25 00:17
Nursing documentation reviewed up to this point in time: agreed with
History of Present Illness
History of Present Illness:
Patient with history of oxygen dependent COPD (2 L via nasal cannula), presents to ED secondary to worsening shortness of breath over the past 1 week. Denies fever or chills. Denies nausea, vomiting, or diarrhea. Denies coughing. Patient still
smokes daily. Denies recent travel or surgery. Denies leg pain or swelling. Patient has received Solu-Medrol IV as well as DuoNeb in route to the hospital, with mild improvement in symptoms.
Past History
Past History
ED Past Medical History: Cancer, COPD, HTN, Hypercholesterolemia, NIDDM and Other (COVID pneumonitis January 2022)
ED Past Surgical History: Cholecystectomy and Urological
Social History
Tobacco: Smoker
Alcohol: None
Personal:
Living: alone
Employment: Retired
Family History
Family History: Other (Noncontributory)
Review of Systems
Review of Systems
Allergies reviewed?: Yes
All Other Systems: ROS reviewed and negative except as documented in HPI and ROS
Constitutional: Reports no symptoms; Denies fever
Respiratory: Reports trouble breathing
Cardiac: Reports no symptoms
ABD/GI: Reports no symptoms; Denies vomiting or diarrhea
Musculoskeletal: Reports no symptoms; Denies edema
Skin: Reports no symptoms
Neurological: Reports no symptoms
Phy Exam
Physical Exam
Physical Exam:
Physical Exam
General: mild respiratory distress, not acutely ill. afebrile
Head: nc/at. eomi
Neck: supple. normal range of motion. no jvd.
Heart: s1/s2 regular rate and rhythm
Lungs: mild respiratory distress. diffuse wheezing bilaterally
Abdomen: normal bowel sounds. not tender.
Neuro: alert and oriented x 3. no focal neurological deficits
Skin: no rash
Psychiatric: well kept. interactive and cooperative
Extremities: no edema. no calf tenderness.
Scores
Heart Failure Risk
Heart Failure Risk Score: Not Applicable
Course
Orders/Labs/Results
Orders:
Orders
07/13/25 00:13
EKG [Electrocardiogram (*1)] Urgent
Reason for Study: Shortness of Breath
07/13/25 00:15
EKG- Treatment ONCE
07/13/25 00:18
CR Chest - 2 Views Urgent
Comment:
Reason For Exam: sob/hypoxia
07/13/25 00:27
COVID-19 Antigen Urgent
Source: Nasal Swab
Complete Blood Count/With Diff Urgent
Comprehensive Metabolic Panel Urgent
D-Dimer Urgent
Magnesium Urgent
07/13/25 01:54
Admit/Transfer Patient As Directed
Co-Sign Provider:
Level of Care: Inpatient admission
Assign to:: Medical/Surgical
Physician / Group: Best
Diagnosis: AE-COPD
Reason for Hospitalization: AE-COPD
Expected length of stay greater than two midnights?: Yes
ELOS- Estimated Length of Stay in days: 3
I certify the patient meets the requirements for IP care: Yes
PRN Pain Medication Management As Directed
May give lesser potent ordered pain med per pt: Yes
preference::
Protocol:: Medication orders for pain may be administered in a
manner that supports deferring to patient preference
when the pt is:
- Requesting an ordered lesser potent pain medication.
Least to most potent pain medications are defined
as: acetaminophen < NSAID < tramadol < opioids
(morphine, oxycodone, hydromorphone).
- Requesting a lesser dose of the same medication IF
ORDERED.
- Requesting a less intrusive route of administration
if both routes are prescribed by the provider (PO <
IV).
07/13/25 01:55
Code Status As Directed
Resuscitation Status: Do not resuscitate
Reached after discussion with pt or family/Healthcare POA: Yes
07/13/25 01:56
DNR Bracelet Application ONCE
07/13/25 03:13
Acetaminophen [Tylenol] 650 mg PO Q4HPRN PRN
Albuterol Nebs [Ventolin Nebules] 2.5 mg INH R Q4HPRN PRN
Dextrose 50%-Water [Dextrose 50% Syringe] 12.5 grams IV Q32ZAIN PRN
Glucagon [GlucaGen] 1 mg IM PRN PRN
07/13/25 03:13
Activity As Directed
Activity Level: Ambulate
With Assistance
Bedside Glucose Monitoring As Directed
Frequency: AC&HS
Additional Instructions:: Change to q6h if pt on TPN, tube feeding or not eating
Bladder Scan As Directed
Follow Bladder Retention/Intermittent Cath Algorithm?: Yes
PRN if no void in __ hours: 6
Frequency: Per Retention Algorithm
If Bladder Scan Result >: 400
then:: Straight cath
I/O [Intake/ Output] As Directed
Frequency: Per unit guidelines
Records Request [Obtain Records] As Directed
Dates of Information to be Released: Most Recent
Type of Information Requested: Entire Record
Obtain Records from: [place]
Straight Cath As Directed
Frequency: Per Retention Algorithm
Additional Instructions: straight cath as needed per acute urinary retention algorithm for 24 hrs
Additional Instructions: for bladder scan greater than 400 mL
Vital Signs As Directed
Frequency: Per unit guidelines
Weight As Directed
Frequency: Daily
Chest PT [Rx Chest Pt] [RESP] Routine
Special Instructions: BID
Oxygen Therapy [O2 Therapy] [RESP] Routine
Titrate/Wean O2 to maintain O2 sat greater than (%): 94
PT Consult [Pt Eval And Treat] Routine
Activity Level: Ambulate
With Assistance
DX Deep Vein Thrombosis Video Routine
07/13/25 Breakfast
2000 calorie (17 carb) Diabetic
At Your Request: [employer] Required
Basic Metabolic Panel IN AM
Complete Blood Count/No Diff IN AM
Glycohemoglobin (HgbA1c) IN AM
07/13/25 07:30
Insulin Aspart Corrective Low [Novolog Flexpen-Low Resistance] See Protocol SC AC
07/13/25 08:00
Aspirin Chewable [Low Strength Aspirin] 81 mg PO DAILY
Atorvastatin [Lipitor] 40 mg PO DAILY
Budesonide [Pulmicort] 0.5 mg INH R BID
Diltiazem Extended Release [Cardizem Cd] 120 mg PO DAILY
Doxycycline [Vibramycin] 100 mg PO Q12
Gabapentin [Neurontin] 100 mg PO TID
Guaifenesin [Mucinex] 1,200 mg PO Q12
Ipratropium/Albuterol Sulfate [Duoneb] 3 ml INH R QID
Pantoprazole [Protonix] 40 mg PO DAILY
Tamsulosin [Flomax] 0.4 mg PO BID
07/13/25 18:00
Enoxaparin Sodium [Lovenox] 40 mg SC QPM
Abnormal Lab Results
07/13/25
00:27
MCHC 30.5 L g/dL
(33.0-37.0)
Absolute Neuts (auto) 6.8 H 10^3/uL
(1.4-6.5)
Absolute Monos (auto) 1.0 H 10^3/uL
(0.1-0.6)
Lymphocytes % 15.5 L %
(20.5-51.1)
Monocytes % 10.2 H %
(1.7-9.3)
D-Dimer 0.58 H ug/mlFEU
(0.00-0.50)
Carbon Dioxide 36 H mmol/L
(22-30)
BUN 21 H mg/dl
(9-20)
Glucose 143 H mg/dl
(70-99)
Total Protein 5.9 L g/dl
(6.3-8.2)
07/13/25 00:27
07/13/25 00:27
Vital Signs
Initial and Last Documented VS:
Initial Vital Signs
Temp
98.0 F
07/13/25 00:15
Last Documented Vital Signs
Temp Pulse Resp BP Pulse Ox
97.5 F 72 16 131/69 93
07/13/25 03:05 07/13/25 03:05 07/13/25 03:05 07/13/25 03:05 07/13/25 03:05
MDM/Problems Addressed
MDM/Problems Addressed:
History and exam consistent with likely recurrent COPD exacerbation. Patient has improved appropriately with administration of Solu-Medrol along with DuoNeb, which will need to be continued.
D-dimer, when age-adjusted, within normal range. Chest x-ray without any acute findings. No indication for antibiotics at this time.
*Pulse Oximetry
SaO2: 97
Patient hypoxic: yes
*EKG
Interpreted by ED Provider?: Yes
EKG Intrepretation Date: 07/13/25
Heart Rate: 107
Rate: tachycardiac
Rhythm: sinus
[place]: left axis deviation
QRS Pattern: right bundle branch block
*Critical Care Note
Total Time (30-74mins, 75-104mins- exclusive of procedures): Not Applicable
ED Attending Note
-
Portions of this chart may have been created with voice recognition software.� Occasional wrong word or��sound alike� substitutions may have occurred due to the inherent limitations of voice recognition software.
Discharge Plan
Departure
Patient Disposition: Admit
Date of Disposition: 07/13/25
Time of Disposition: 01:31
Admit to: Telemetry
Presentation/result/management discussed w/ accepting MD/DO: Hospitalist
Discharge Problem:
COPD exacerbation
Interventions
Interventions:
*Risk Screen - Suicide Last Done: 07/13/25 00:15
*General Assessment Last Done: 07/13/25 00:15
*Neglect/Abuse Screening Last Done: 07/13/25 00:15
*ED- Fall Risk Assessment Last Done: 07/13/25 00:15
*ED COVID-19 Vaccine History Last Done: 07/13/25 00:15
*Nursing Disposition Last Done: 07/13/25 03:03
ED- Cardiac Assessment Last Done: 07/13/25 00:15
ED- Pulmonary Assessment Last Done: 07/13/25 00:15
Discharge Date and Time
Discharge Date/Time: 07/13/25 03:04
--- NOTE | 2025-07-13 01:58 | HPS.HSE ---
Family Physician
-
Family Physician: NOT KNOW UNKNOWN - PT DOES
Chief Complaint
-
SOB
History of Present Illness
Patient is an 84y M with PMH significant for severe COPD, chronic hypoxemia and hypertension who presents to ED complaining of SOB. Patient states that he was hospitalized in [place] in April of this year. He believes that he may have been
intubated at that time. Patient states that he was discharged initially to SNF and has been home now for about 1-2 weeks. Patient reports gradually worsening SOB over the past week or so. He has chronic cough / mucus production but denies any
changes. No fevers / chills. No chest pain.
Patient presented to the ED this evening for further evaluation and treatment.
He uses O2 chronically at home at 2 lpm. He was recommended a BiPAP at but states that he was unable to tolerate this.
At the time of my examination, patient feels somewhat improved from arrival.
Medical History
Past Medical History
Past Medical History: Reports Other
Additional Past Medical History:
Chronic Hypoxic Respiratory Failure
Severe COPD
Chronic HFpEF
Paroxysmal Atrial Fibrillation
Hypertension
Diabetes Mellitus, Type II
Dysphagia
GERD
Hx Prostate CA
Past Surgical History: Reports Other
Additional Past Surgical History:
Cholecystectomy
Social History
Tobacco: Smoker (Started smoking at the age of 11. Current every day smoker. > 60 pack years total use.)
Alcohol: None
Family History
Family History: Not pertinent
Allergies / Home Medications
Allergies reflects when Allergies were last updated in [employer].
Home Medications with original date entered in [employer]
Allergy/Medication List:
Allergies
Allergy/AdvReac Type Severity Reaction Status Date / Time
No Known Allergies Allergy Verified 07/13/25 00:13
Home Medications
atorvastatin 40 mg tablet 40 mg PO DAILY High cholesterol #30 tabs 06/04/23
diltiazem HCl 120 mg capsule,extended release 24 hr 120 mg PO DAILY Arrhythmia #30 caps 06/04/23
albuterol sulfate 2.5 mg/3 mL (0.083 %) solution for nebulization 2.5 mg inhalation R Q6HPRN PRN wheezing 11/07/23
budesonide 0.5 mg/2 mL suspension for nebulization 0.5 mg inhalation R BID Lung/Breathing Issues 05/13/24
omeprazole 20 mg capsule,delayed release 20 mg PO DAILY Gastrointestinal Issue 05/13/24
tamsulosin 0.4 mg capsule 0.4 mg PO BID Urinary issue 05/13/24
aspirin 81 mg chewable tablet 81 mg PO DAILY #0 tabs 05/16/24
gabapentin 100 mg capsule 100 mg PO TID 07/13/25
insulin glargine 100 unit/mL (3 mL) subcutaneous pen (Lantus Solostar U-100 Insulin) 10 unit SC QPM 07/13/25
prednisone 10 mg tablet 10 mg PO DAILY 07/13/25
Review of Systems
-
History Source: Patient
A 12 point ROS was completed and negative except as noted: Yes
Constitutional: Reports Fatigue; Denies Fever or Chills
Respiratory: Reports Cough (chronic / unchanged) and Trouble Breathing; Denies Hemoptysis
Cardiac: Denies Chest Pain or Palpitations
Abdomen/GI: Denies Abdominal Pain, Nausea, Vomiting or Diarrhea
: Denies Dysuria or Frequency
Musculoskeletal: Denies Edema
Neurological: Denies Dizzy or Headache
Physical Exam
Vital Signs
Vital Signs
Temp BP Pulse Ox
98.0 F 128/67 97
07/13/25 00:15 07/13/25 00:16 07/13/25 01:31
Physical Exam
General: Other (84y M in no acute distress.)
HEENT: Moist mucous membranes and PERRLA
Respiratory: Other (Audible coarse upper airway sounds. Scattered expiratory wheeze. )
Cardiac: S1/S2 and Regular Rhythm (with ectopy); No Murmur
GI: Soft, Non Tender, Non Distended and Normal Bowel Sounds
Musculoskeletal: No Clubbing, No Cyanosis and No Edema
Neuro: AO x 3
Laboratory Results
-
07/13/25 00:27
07/13/25 00:27
Laboratory Results
Total Bilirubin 0.6 mg/dl (0.2-1.3) 07/13/25 00:
AST 17 U/L (17-59) 07/13/25 00:
ALT 17 U/L (0-50) 07/13/25 00:
Alkaline Phosphatase 93 U/L (38-126) 07/13/25 00:
Impression/Plan
-
A/P: Patient is an 84y M with PMH significant for COPD, chronic hypoxemia and hypertension who presents to ED complaining of SOB.
Acute Exacerbation of COPD
Chronic Hypoxemic Respiratory Insufficiency
- Admit for further evaluation and treatment.
- Continue IV steroids for now and taper as able.
- Nebs ATC and PRN.
- PO doxycycline.
- Follow for clinical improvement.
- Obtain records from prior hospitalization at [place] for review.
Paroxysmal Atrial Fibrillation
Benign Hypertension
- In sinus rhythm with PACs at present.
- Not chronically on OAC - frequent falls at home.
- Continue diltiazem.
DM-II
- Stable. Continue basal insulin at HS.
- Follow glucose and cover as needed with SSI -especially on high dose steroids.
- Update A1C.
Chronic HFpEF
- No evidence of volume overload on exam at present.
- Patient is not maintained on any diuretic regimen or apparent GDMT for CHF.
History of Prostate Cancer
- Continue tamsulosin.
- Bladder scan protocol.
DVT Prophylaxis: Lovenox
Code Status: DNR
--- NOTE | 2025-07-13 04:23 | TRANSFER ---
Pt transferred to 3W from ED. Pulled over from stretcher to hospital bed. Pt AAOx3, oriented to room, call rose within reach, plan of care ongoing.
[2025-07-13] MEDS: SOLU-MEDROL PF 60 MG IV ×2 (04:53→12:19)
[2025-07-13 07:46] LABS: Glucose - Point of Care 168 mg/dl (70-99)
[2025-07-13] MEDS: PULMICORT 0.5 MG INH ×2 (07:55→20:13)
[2025-07-13] MEDS: DUONEB 3 ML INH ×4 (07:55→20:13)
[2025-07-13 08:09] LABS: Hematocrit 51.5 % (39.0-52.0); Hemoglobin 15.8 g/dL (13.0-18.0); Mean Corp Hgb Conc. 30.7 g/dL (33.0-37.0); Mean Corpuscular Volume 92.6 fL (80.0-94.0); Platelet Count 140 10^3/uL (130-400); Red Cell Dist. Width 14.0 % (11.5-14.5)
[2025-07-13] MEDS: LIPITOR 40 MG PO (08:15)
[2025-07-13] MEDS: CARDIZEM CD 120 MG PO (08:15)
[2025-07-13] MEDS: PROTONIX 40 MG PO (08:15)
[2025-07-13] MEDS: LOW STRENGTH ASPIRIN 81 MG PO (08:15)
[2025-07-13] MEDS: VIBRAMYCIN 100 MG PO ×2 (08:15→19:55)
[2025-07-13] MEDS: FLOMAX 0.4 MG PO ×2 (08:15→19:55)
[2025-07-13] MEDS: NEURONTIN 100 MG PO ×3 (08:16→23:15)
[2025-07-13] MEDS: MUCINEX 1200 MG PO ×2 (08:16→19:55)
[2025-07-13 08:20] LABS: Blood Urea Nitrogen 24 mg/dl (9-20); Calcium 8.7 mg/dl (8.4-10.2); Carbon Dioxide 32 mmol/L (22-30); Chloride 100 mmol/L (98-107); Estimated Creatinine Clearance 77 ml/min; Glucose 197 mg/dl (70-99); Potassium 4.6 mmol/L (3.5-5.1); Sodium 138 mmol/L (135-145); eGFR > 60.00
[2025-07-13] MEDS: NOVOLOG FLEXPEN-LOW RESISTANCE 1 UNITS SC (08:40)
[2025-07-13 09:59] LABS: Glycohemoglobin (HgbA1c) 7.8 % (4.0-5.6)
--- NOTE | 2025-07-13 10:41 | WOUNDNOTE ---
LEFT ARM SKIN TEAR
--- NOTE | 2025-07-13 10:42 | WOUNDNOTE ---
[facility] RN NOTE: Reviewed chart and met with patient and RNBruna. Patient admitted with stage 1 sacral PI with areas of MASD. No open areas noted at time of assessment. Patient also with skin tear to left elbow. Patient demonstrates good ability to
turn in bed and is a good historian of current medical events. Patient reports sitting in chair most of the day without any off-loading devices. He said he is intermittently incontinent and uses Vaseline as barrier ointment and wears briefs. He has
a caregiver 12 hours/day and still has neb treatments and medications to take after that time. He has been working with his Doctors office to get a walker and a hospital bed. He said he continues to smoke and reports a poor appetite. He said his son
is supportive and will be brining in his briefs later. Heels are intact. Patient is an a [employer] bed. Will recommend clear barrier ointment and sacral foam to change Q 2-3 as tolerated. Can also try 6x6 foam to sacrum. Discussed
off-loading and turning at length with patient who stated understanding. Air cushion added to chair. VENKATESH Mcfarland given updated. Will confirm orders and follow up as needed.
--- NOTE | 2025-07-13 11:04 | W.PN.HOSP.TC ---
Addendum entered and electronically signed by Hardy Salazar DO 07/14/25 12:12:
Clarification:
Chronic hypoxic respiratory failure only
Sacrum Stage 1 Pressure Injury, POA
Original Note:
Today's Communication/Plan
-
Assessment / Plan
Assessment / Plan
General: No Apparent Distress, Comfortable and Conversant
HEENT: NormoCephalic, Moist mucous membranes, Atraumatic, nasal cannula in place
Respiratory: Clear and Non Labored Respirations
Cardiac: S1/S2 and Regular Rhythm; No Rub or Gallop
GI: Soft, Non Tender, Non Distended and Normal Bowel Sounds
Musculoskeletal: No Edema, no deformity
Skin: Warm and dry
: NO [place]
Neuro: Awake, Alert, Nonfocal/grossly intact
Psych: Calm and cooperative
Mr. Gonzalez is an 84-year-old male with a medical history of severe COPD, chronic respiratory failure with hypoxia (2 L at baseline), HFpEF, paroxysmal A-fib, and IDDM who presented with shortness of breath, fatigue, and cough productive of clear
sputum. He has had multiple hospital admissions this year for COPD exacerbations. He continues to smoke cigarettes. He was started on IV steroids and admitted for further evaluation and management of acute COPD exacerbation.
Acute exacerbation of COPD:
- Continue IV steroids and scheduled nebulizers
- Additional nebulizers as needed
- Started on doxycycline, low threshold to discontinue
- Follow-up records from reported prior hospitalization at [place]
- Continue baseline 2 L supplemental oxygen and nasal cannula
- Continue to encourage smoking cessation, nicotine patch provided
IDDM:
- Continue home regimen of Lantus 10 units at night
- Additional sliding scale as needed
- Hemoglobin A1c 7.8%
- Continue Accu-Cheks
- Diabetic diet
HFpEF:
- Chronic, currently compensated
Paroxysmal A-fib:
- Currently in sinus rhythm with controlled heart rate
- Continue rate control with diltiazem 120 mg p.o. daily
- Not on anticoagulation due to frequent falls
DVT prophylaxis: Lovenox
CODE STATUS: DNR
Total time spent on today's encounter was 52 minutes.
Anticipated Discharge: 24 - 48 hours
Subjective/Interval History
-
Date of Service: July 13, 2025
Patient was seen and examined at bedside this morning. He is breathing much more comfortably this morning compared to when he was first admitted. He is not happy about his limited meal choices due to his diabetic diet order.
Objective Data
-
Labs:
Laboratory Results
07/13/25 07/13/25
00:27 07:07
WBC 9.4 6.5
Hgb 15.5 15.8
Hct 50.9 51.5
Plt Count 157 140
Sodium 142 138
Potassium 4.3 4.6
Chloride 102 100
Carbon Dioxide 36 H 32 H
BUN 21 H 24 H
Creatinine 0.7 0.6 L
Glucose 143 H 197 H
Calcium 9.1 8.7
Total Bilirubin 0.6
AST 17
ALT 17
Alkaline Phosphatase 93
Vital Signs:
Vital Signs
Temp Pulse Resp BP Pulse Ox
97.5 F 74 22 145/75 95
07/13/25 08:02 07/13/25 08:02 07/13/25 08:02 07/13/25 08:02 07/13/25 08:02
Review of Systems
-
History Source: Patient
All other systems: Reviewed and negative
Constitutional: Reports Fatigue
Physical Exam
-
General: No Apparent Distress
[2025-07-13 11:52] LABS: Glucose - Point of Care 270 mg/dl (70-99)
[2025-07-13] MEDS: NOVOLOG FLEXPEN-LOW RESISTANCE 3 UNITS SC (12:00)
--- NOTE | 2025-07-13 15:47 | CM ---
RACHEL met with Emilio to complete IA. He lives alone in an apartment at [facility]. No stairs, elevator access.
Pt has Waiver services through the state/ Home and Community based services. He has caregivers 16 hours per day - 7am-11pm; they assist with cleaning, cooking, shopping, medication and ADLs. Pt can transfer from his recliner chair to the commode.
He has a power wheelchair, however it is too big to fit in the bathroom and kitchen.
Pt has been falling frequently, wears depends. He is able to feed himself and shaves himself. Aids assist with bathing, as it it too difficult for him to bathe himself due to breathing difficulties.
Referral sent to [facility] for services at discharge.
[ End ]
--- NOTE | 2025-07-13 16:15 | VNURNOTE ---
Home Health Liaison met with patient and son at bedside to discuss [facility] nurse/therapy, visits, schedule and homebound status. Patient is familiar with services, had [facility] earlier in the year (December). Patient stated he wanted to be DC'ed to
SNF, specifically [facility]. Son was in agreement. Updated CM Lo w/info above. No VN referral placed at this time.
[2025-07-13 16:49] LABS: Glucose - Point of Care 309 mg/dl (70-99)
[2025-07-13] MEDS: NOVOLOG FLEXPEN-LOW RESISTANCE 4 UNITS SC (17:37)
[2025-07-13] MEDS: LOVENOX 40 MG SC (17:38)
[2025-07-13] MEDS: LANTUS 0.1 UNITS SC (17:38)
[2025-07-13] MEDS: TYLENOL 650 MG PO ×2 (17:42→23:15)
[2025-07-13 21:08] LABS: Glucose - Point of Care 350 mg/dl (70-99)
[2025-07-13] MEDS: SOLU-MEDROL PF IV (23:07)
[2025-07-13] MEDS: NOVOLOG FLEXPEN 5 UNITS SC (23:14)
[2025-07-14 00:08] LABS: Glucose - Point of Care 277 mg/dl (70-99)
[2025-07-14 00:37] LABS: Hematocrit 43.7 % (39.0-52.0); Hemoglobin 13.6 g/dL (13.0-18.0)
[2025-07-14 01:26] VITALS: BMI 19.8
--- NOTE | 2025-07-14 01:32 | PTCARENOTE ---
Pt stated concern about steroids raising glucose at admission. Pt stated he does not take or need any insulin at home. On 07/13 Pt needed Insulin coverage at every accu-chek. At the start of shift Ths RN noticed Pt becoming increasingly agitated. At
21:07 accu-chek Pt's glucose was 350. DRESSER TENDER notified and Insulin order placed. Pt Solu-medrol also due at 21:00. When informed that he would be getting insulin and also was due for the steroid he became even more agitated. 5 units were ordered and Pt
stated '5 units does not do shit, I need at least 8-10' He demanded to speak to a provider and also refused his steroid. DRESSER TENDER at bedside and explained sliding scale insulin is based on glucose level. He agreed to take the 5 units but was adamant he
would not be taking the steroid. DRESSER TENDER, this RN, as well as another RN on the floor all explained importance of the steroid and not stopping cold turkey however Pt continued to refuse. At this time insulin was given.
--- NOTE | 2025-07-14 01:53 | PTCARENOTE ---
PCT noticed bleeding around Pt's right arm. WIRE WEAVER HELPER notified
[2025-07-14] MEDS: VENTOLIN NEBULES 2.5 MG INH (04:11)
[2025-07-14] MEDS: ULTRAM 25 MG PO (05:45)
[2025-07-14 05:53] LABS: Glucose - Point of Care 136 mg/dl (70-99)
[2025-07-14 06:00] VITALS: BMI 20.5
[2025-07-14] MEDS: SOLU-MEDROL PF 60 MG IV (06:09)
--- NOTE | 2025-07-14 06:36 | W.PN.UPDATE ---
Update Note
Progress Note Update
RN reported patient refusing Insulin and steroids and wants to talk to the provider.
BS 350 and requires 5 units of regular insulin. Patient seen and addressed the importance of insulin at present, slightly agitated, seems like patient was confused regarding Lantus being decreased to 5 units from 10 units. Reassured by this DIAL BRUSHER and
other RN that patient is receiving extra dose of inulin along with the Lantus he takes at home. Patient agreed to take the insulin but continuos to refuse the Steroids.
Also patient with multiple scabs and bruises and upon taking BP on right arm, RN noted patient arm was bleeding, about moderate amount, VS remains stable, c/o dizzy once, H&H done and stable. no more bleeding noted.
now states he has nerve pain in his arm 07/30 refusing Tylenol and requesting gabapentin, ordered one dose of 25mg of Tramadol at present.
[2025-07-14] MEDS: PULMICORT 0.5 MG INH ×2 (07:41→20:17)
[2025-07-14] MEDS: DUONEB 3 ML INH ×4 (07:41→20:17)
[2025-07-14 07:59] VITALS: BP 104/51
[2025-07-14 08:07] LABS: Glucose - Point of Care 167 mg/dl (70-99)
[2025-07-14] MEDS: CARDIZEM CD 120 MG PO (08:18)
[2025-07-14] MEDS: MUCINEX 1200 MG PO ×2 (08:18→20:22)
[2025-07-14] MEDS: FLOMAX 0.4 MG PO ×2 (08:18→20:22)
[2025-07-14] MEDS: LIPITOR 40 MG PO (08:18)
[2025-07-14] MEDS: PROTONIX 40 MG PO (08:18)
[2025-07-14] MEDS: TYLENOL 650 MG PO ×3 (08:19→22:10)
[2025-07-14] MEDS: VIBRAMYCIN 100 MG PO ×2 (08:19→20:22)
[2025-07-14] MEDS: NEURONTIN 100 MG PO ×3 (08:19→22:09)
[2025-07-14] MEDS: LOW STRENGTH ASPIRIN 81 MG PO (08:19)
[2025-07-14] MEDS: NOVOLOG FLEXPEN-LOW RESISTANCE 1 UNITS SC (08:20)
[2025-07-14 09:17] VITALS: PULSE 89; O2SAT 94
--- NOTE | 2025-07-14 09:41 | PN.CDI ---
CDI
- -
CDI:
Physician Documentation Request
Admit Date: 07/13/25 02:25
Dear Doctor Martin,
Clinical Indicators:
Patient admitted with COPD exacerbation.
07/13 WO RN Skin/wound assessment: Sacrum Stage 1 Pressure Injury, POA
Treatment: Barrier ointment, silicone border foam dressing, air cushion
Physician documentation of the type and location of wounds is required for compliant documentation. Based on the above clinical findings and your assessment, please provide the following in your progress note:
1. Location of the ulcer/wound, including laterality.
2. Type (etiology) of ulcer/wound:
- Pressure (decubitus) ulcer
- Other, please specify
3. If a pressure ulcer, please also include the stage* of the ulcer:
- Stage 1 - Skin intact, non-blanchable redness
- Stage 2 - Partial thickness loss of dermis, includes intact or open blister
- Stage 3 - Full thickness tissue not including bone, tendon or muscle
- Stage 4 - Full thickness tissue loss, including exposed bone, tendon or muscle
- Unstageable - Full thickness loss in which the base of the ulcer is covered by slough (yellow, noel, reed, green or brown) and/or eschar (noel, brown or black) in the wound bed.
- Unable to determine
Use of terms such as suspected, likely, concern for, or probable (associated with a specific diagnosis that is being evaluated, monitored, or treated as if it exists) are acceptable and can be coded in the inpatient setting, when documented at the
time of discharge.
Thank you,
AUREA Gomez RN
CDI Specialist
available via tiger text
Please use your independent medical judgment in providing your response.
*Source: National Pressure Ulcer Advisory Panel (NPUAP)
--- NOTE | 2025-07-14 09:46 | PN.CDI ---
CDI
- -
CDI:
Physician Documentation Request
Admit Date: 07/13/25 02:25
Dear Doctor Marisol Andres,
Clinical Indicators:
Patient admitted with COPD exacerbation.
PMH includes chronic hypoxic respiratory failure, 02 (2L) dependent.
07/13 EMS Report: 'Patient spoke in 4 -5 word sentences and had obviously labored breathing increased breathing effort and accessory muscle use...Sp02 89% 2L'
07/13 ED Report, Physical Exam: mild respiratory distress
Please clarify which of the following accurately represents the patient's respiratory status:
Acute on chronic hypoxic respiratory failure
Chronic hypoxic respiratory failure only
Other, please specify
Additional information for Respiratory Failure:
Recognized criteria for Respiratory Failure (Source: Martine SWes Graves. 2019 September 09.
Documentation tips: Acute Respiratory Failure, The Hospitalist.)
ABGs: (1 or more) Symptoms Please indicate type if known
1. p)2 <60 or RA SPO2 <91% on RA 1. Tachypnea, SOB, dyspnea Hypoxic
2. pCO2 >45 and pH <7.35 2. Use of accessory muscles Hypercapnic
3. pO2 decrease of pCO2 increase by 3. Pallor or cyanosis Hypoxic and Hypercapnic
10 mmHg from baseline if known 4. Anxiety or restlessness Unable to determine
4. P/F Ratio (pO2/FiO2)nless than 300 5. Unable to speak in full sentences
Use of terms such as suspected, likely, concern for, or probable (associated with a specific diagnosis that is being evaluated, monitored, or treated as if it exists) are acceptable and can be coded in the inpatient setting, when documented at the
time of discharge.
Thank you,
AUREA Gomez RN
CDI Specialist
available via tiger text
Please use your independent medical judgment in providing your response.
[2025-07-14 11:44] LABS: Glucose - Point of Care 222 mg/dl (70-99)
[2025-07-14] MEDS: NOVOLOG FLEXPEN-LOW RESISTANCE 2 UNITS SC ×2 (13:01→17:31)
--- NOTE | 2025-07-14 13:02 | W.PN.HOSP.TC ---
Today's Communication/Plan
-
Assessment / Plan
Assessment / Plan
General: No Apparent Distress, Comfortable and Conversant
HEENT: NormoCephalic, Moist mucous membranes, Atraumatic, nasal cannula in place
Respiratory: Minimal wheezing bilaterally, Non Labored Respirations
Cardiac: S1/S2 and Regular Rhythm; No Rub or Gallop
GI: Soft, Non Tender, Non Distended and Normal Bowel Sounds
Musculoskeletal: No Edema, no deformity
Skin: Warm and dry
: NO Robles
Neuro: Awake, Alert, Nonfocal/grossly intact
Psych: Calm and cooperative
Mr. Gonzalez is an 84-year-old male with a medical history of severe COPD, chronic respiratory failure with hypoxia (2 L at baseline), HFpEF, paroxysmal A-fib, and IDDM who presented with shortness of breath, fatigue, and cough productive of clear
sputum. He has had multiple hospital admissions this year for COPD exacerbations. He continues to smoke cigarettes. He was started on IV steroids and admitted for further evaluation and management of acute COPD exacerbation.
Acute exacerbation of COPD:
- Transition to oral steroids with long taper, continue scheduled nebulizers
- Additional nebulizers as needed
- Continue doxycycline
- Follow-up records from reported prior hospitalization at [facility]
- Continue baseline 2 L supplemental oxygen and nasal cannula
- Continue to encourage smoking cessation, nicotine patch provided but declined
IDDM:
- Continue home regimen of Lantus 10 units at night
- Additional sliding scale as needed
- Hemoglobin A1c 7.8%
- Continue Accu-Cheks
- Diabetic diet
HFpEF:
- Chronic, currently compensated
Paroxysmal A-fib:
- Currently in sinus rhythm with controlled heart rate
- Continue rate control with diltiazem 120 mg p.o. daily
- Not on anticoagulation due to frequent falls
DVT prophylaxis: Lovenox
CODE STATUS: DNR
Total time spent on today's encounter was 54 minutes.
Anticipated Discharge: 24 - 48 hours
Subjective/Interval History
-
Date of Service: July 14, 2025
Patient was seen and examined at bedside this morning. Breathing comfortably on his baseline 2 L nasal cannula. Reports feeling much better today.
Objective Data
-
Vital Signs:
Vital Signs
Temp Pulse Resp BP Pulse Ox
97.5 F 75 18 104/51 95
07/14/25 07:59 07/14/25 11:26 07/14/25 11:26 07/14/25 08:18 07/14/25 11:26
I&O
07/13/25 07/14/25 07/15/25
06:59 06:59 06:59
Intake Total 900 / 900
Balance 900 / 900
Review of Systems
-
History Source: Patient
All other systems: Reviewed and negative
Physical Exam
-
General: No Apparent Distress
[2025-07-14 14:33] VITALS: BMI 20.5
[2025-07-14 15:30] VITALS: BP 134/72
[2025-07-14 17:12] LABS: Glucose - Point of Care 223 mg/dl (70-99)
[2025-07-14] MEDS: LOVENOX 40 MG SC (17:30)
[2025-07-14] MEDS: LANTUS 0.1 UNITS SC (17:30)
[2025-07-14] MEDS: OCEAN, SALINE MIST 1 SPRAYS NASAL (22:27)
[2025-07-14 23:27] LABS: Glucose - Point of Care 136 mg/dl (70-99)
[2025-07-14 23:38] VITALS: BP 150/77
[2025-07-15 06:24] VITALS: BMI 21.9
[2025-07-15] MEDS: DUONEB 3 ML INH ×2 (07:46→10:57)
[2025-07-15] MEDS: PULMICORT 0.5 MG INH (07:46)
[2025-07-15] MEDS: NOVOLOG FLEXPEN-LOW RESISTANCE SC (07:47)
[2025-07-15 07:48] LABS: Glucose - Point of Care 74 mg/dl (70-99)
[2025-07-15 07:52] VITALS: BP 135/94
[2025-07-15] MEDS: LOW STRENGTH ASPIRIN 81 MG PO (08:25)
[2025-07-15] MEDS: LIPITOR 40 MG PO (08:25)
[2025-07-15] MEDS: CARDIZEM CD 120 MG PO (08:25)
[2025-07-15] MEDS: VIBRAMYCIN 100 MG PO (08:25)
[2025-07-15] MEDS: PROTONIX 40 MG PO (08:25)
[2025-07-15] MEDS: MUCINEX 1200 MG PO (08:25)
[2025-07-15] MEDS: FLOMAX 0.4 MG PO (08:25)
[2025-07-15] MEDS: NEURONTIN 100 MG PO (08:25)
[2025-07-15] MEDS: DELTASONE 40 MG PO (08:25)
--- NOTE | 2025-07-15 10:32 | W.DCSUMMARY ---
Discharge Summary
Discharge Data
Date of Admission: 07/13/25
Date of Discharge: 07/15/25
Total time spent discharging patient (in min): 48
-
Pending Results: No
Hospital Course
Mr. Gonzalez is an 84-year-old male with a medical history of severe COPD, chronic respiratory failure with hypoxia (2 L at baseline), HFpEF, paroxysmal A-fib, and IDDM who presented with shortness of breath, fatigue, and cough productive of clear
sputum. He has had multiple hospital admissions this year for COPD exacerbations. He continues to smoke cigarettes. He was started on IV steroids and admitted for further evaluation and management of acute COPD exacerbation.
He made significant improvement with IV steroids and nebulizer treatments. His sputum became thicker and green-colored and so he was continued on antibiotics. He remained on his baseline 2 L supplemental oxygen via nasal cannula throughout his
hospitalization. He was encouraged to discontinue smoking and was offered a nicotine patch, which he declined. He was able to be transitioned to oral steroids with continued improvement. He will be discharged to home with a long steroid taper and
continued antibiotics with Levaquin to complete a total 7-day antibiotic course considering prior sputum cultures growing Pseudomonas. Home physical and Occupational Therapy is being arranged for him. He will need to continue following closely
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 At time of hospital discharge he was medically stable
General: No Apparent Distress, Comfortable and Conversant
HEENT: NormoCephalic, Moist mucous membranes, Atraumatic, nasal cannula in place
Respiratory: Minimal wheezing bilaterally, Non Labored Respirations
Cardiac: S1/S2 and Regular Rhythm; No Rub or Gallop
GI: Soft, Non Tender, Non Distended and Normal Bowel Sounds
Musculoskeletal: No Edema, no deformity
Skin: Warm and dry
: NO Robles
Neuro: Awake, Alert, Nonfocal/grossly intact
Psych: Calm and cooperative
Discharge Plan
-
Patient Disposition: Home with Home Care
Discharge Diagnosis/Procedures: Acute COPD exacerbation
Activity Restrictions/Additional Instructions:
Wound Care Instructions Sacrum- Clean barrier ointment and sacral silicone border foam to change Q 2-3 days or 6x6 foam to change daily and PRN if soiled.
Encourage frequent turning and repositioning
Air or Gel cushion to chair
Change Depends frequently and apply barrier ointment
Smoking Cessation
Encourage good PO intake
Mr. Gonzalez is an 84-year-old male with a medical history of severe COPD, chronic respiratory failure with hypoxia (2 L at baseline), HFpEF, paroxysmal A-fib, and IDDM who presented with shortness of breath, fatigue, and cough productive of clear
sputum. He has had multiple hospital admissions this year for COPD exacerbations. He continues to smoke cigarettes. He was started on IV steroids and admitted for further evaluation and management of acute COPD exacerbation.
He made significant improvement with IV steroids and nebulizer treatments. His sputum became thicker and green-colored and so he was continued on antibiotics. He remained on his baseline 2 L supplemental oxygen via nasal cannula throughout his
hospitalization. He was encouraged to discontinue smoking and was offered a nicotine patch, which he declined. He was able to be transitioned to oral steroids with continued improvement. He will be discharged to home with a long steroid taper and
continued antibiotics with Levaquin to complete a total 7-day antibiotic course considering prior sputum cultures growing Pseudomonas. Home physical and Occupational Therapy is being arranged for him. He will need to continue following closely
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 At time of hospital discharge he was medically stable.
Referrals:
UNKNOWN - PT DOES,NOT KNOW [Family Provider]
Prescriptions:
New
guaifenesin 600 mg Tablet Extended Release 12hr
1,200 mg PO Q12 Qty: 10 0RF
nicotine 14 mg/24 hr Patch 24 Hour
14 mg transdermal DAILY Qty: 30 0RF
Saline Nasal 0.65 % Aerosol,[place]
1 spray intranasal QIDPRN PRN (Reason: dry nares) Qty: 44 0RF
levofloxacin 750 mg tablet
750 mg PO DAILY 5 Days Qty: 5 0RF
prednisone 10 mg tablet
See Taper PO DIRECTED Qty: 30 0RF
Taper: Prednisone DC Starting at 40 mg daily
40 mg Daily for 3 Days and 0 Hour
30 mg Daily for 3 Days and 0 Hour
20 mg Daily for 3 Days and 0 Hour
10 mg Daily for 3 Days and 0 Hour
Continued
atorvastatin 40 MG tablet
40 mg PO DAILY Qty: 30 0RF
diltiazem HCl 120 MG capsule,extended release 24hr
120 mg PO DAILY Qty: 30 0RF
albuterol sulfate 2.5 mg /3 mL (0.083 %) Solution For Nebulization
2.5 mg INHALATION R Q6HPRN PRN (Reason: wheezing)
budesonide 0.5 mg/2 mL Suspension For Nebulization
0.5 mg INHALATION R BID
tamsulosin 0.4 MG capsule
0.4 mg PO BID
omeprazole 20 MG capsule,delayed release(DR/EC)
20 mg PO DAILY
aspirin 81 mg Tablet,Chewable
81 mg PO DAILY Qty: 0 0RF
gabapentin 100 mg Capsule
100 mg PO TID
insulin glargine [Lantus Solostar U-100 Insulin] 100 unit/mL (3 mL) Insulin Pen
10 unit SC QPM
Held
prednisone 10 mg tablet
10 mg PO DAILY
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
Discharge Orders:
Discharge Patient (As Directed); Ordered 07/15/25
Ordered By: Hardy Salazar
Discharge Date and Time
Print Language: CHADIAN
--- NOTE | 2025-07-15 11:11 | CM ---
Patient has been medically cleared for discharge to home with [facility] RN, PT/OT services. IMM completed. Son will transport home.
== END 2025-07-15 12:38 | disposition home health service (06) | DRG 191 ==
LOC: 3 WEST ACU 02:25
PROVIDERS: Nurse Practitioner Gerontology; ADMITTING PHYSICIAN Hospitalist; ATTENDING PHYSICIAN Internal Medicine; EMERGENCY PHYSICIAN Emergency Medicine
DX: J44.1 Chronic obstructive pulmonary disease with (acute) exacerbation (principal); I50.32 Chronic diastolic (congestive) heart failure; J96.11 Chronic respiratory failure with hypoxia; I11.0 Hypertensive heart disease with heart failure; I48.0 Paroxysmal atrial fibrillation; R13.10 Dysphagia, unspecified; K21.9 Gastro-esophageal reflux disease without esophagitis; F17.210 Nicotine dependence, cigarettes, uncomplicated; Z66 Do not resuscitate; E11.65 Type 2 diabetes mellitus with hyperglycemia; L89.151 Pressure ulcer of sacral region, stage 1; Z11.52 Encounter for screening for COVID-19; Z79.899 Other long term (current) drug therapy; Z85.46 Personal history of malignant neoplasm of prostate; Z99.81 Dependence on supplemental oxygen
CPT/HCPCS: 71046; 80048; 80053; 82962; 83036; 83735; 85014; 85018; 85025; 85027; 85379; 87811; 93005; 94640; 97163; 97167; 99285

== ENCOUNTER 2025-07-25 18:43 | Emergency (ER) | payer OTHER, MEDICARE, SELFPAY ==
[2025-07-25 18:48] VITALS: BP 168/92
[2025-07-25 18:54] VITALS: BMI 21.6
--- NOTE | 2025-07-25 18:55 | ED.GENMED ---
History of Present Illness
General
Chief Complaint: Blood Sugar Problem
Time Seen by Provider: 07/25/25 18:47
History of Present Illness
History of Present Illness:
84-year-old male with history of insulin-dependent diabetes, hyperlipidemia, COPD with chronic respiratory failure, HFpEF, paroxysmal A-fib presents to the emergency department for evaluation of elevated blood sugar. States his glucose readings
today ranged from 240-310. He did just complete a tapering course of prednisone 2 to 3 days ago after being admitted for a COPD exacerbation. Due to the elevated sugar he did take '8 to 10 units' of his Lantus at 3 PM today but called the
ambulance because his glucose did not improve. He denies any complaints, states his breathing feels 'pretty good' today. Denies chest pain, polyuria, polydipsia, or overwhelming fatigue.
Past History
Past History
ED Past Medical History: Cancer, COPD, HTN, Hypercholesterolemia, NIDDM and Other (COVID pneumonitis January 2022)
ED Past Surgical History: Cholecystectomy and Urological
Social History
Tobacco: Smoker
Alcohol: None
Personal:
Living: alone
Employment: Retired
Family History
Family History: Other (Noncontributory)
Review of Systems
Review of Systems
Allergies reviewed?: Yes
All Other Systems: ROS reviewed and negative except as documented in HPI and ROS
Phy Exam
Physical Exam
Physical Exam:
GEN: Well appearing, NAD, WDWN
HEENT: Oral mucosa moist, no scleral icterus
Cardiac: Regular rate
Lung: No resp distress
MSK: No gross deformity or injuries
Skin: Good color, no pallor or jaundice, no rashes
Neuro: AO x3, moves all extremities freely
Psych: Calm, cooperative
Course
Orders/Labs/Results
Orders:
Orders
07/25/25 18:53
0.9% Sodium Chloride 500 ml [Nss] 500 ml IV BOLUS
07/25/25 19:06
Complete Blood Count/No Diff Urgent
Comprehensive Metabolic Panel Urgent
07/25/25 20:09
Insulin Aspart [NOVOLOG vial] 5 units SC NOW STA
Abnormal Lab Results
07/25/25 07/25/25 07/25/25
19:06 20:49 21:48
MCHC 30.2 L g/dL
(33.0-37.0)
Sodium 134 L mmol/L
(135-145)
Chloride 93 L mmol/L
(98-107)
Carbon Dioxide 41 H mmol/L
(22-30)
BUN 22 H mg/dl
(9-20)
Creatinine 0.5 L mg/dL
(0.7-1.3)
Glucose 246 H mg/dl
(70-99)
Calcium 8.1 L mg/dl
(8.4-10.2)
AST 15 L U/L
(17-59)
Total Protein 5.2 L g/dl
(6.3-8.2)
Albumin 3.2 L g/dl
(3.5-5.0)
POC Glucose 165 H mg/dl 167 H mg/dl
(70-99) (70-99)
07/25/25 19:06
07/25/25 19:06
Vital Signs
Initial and Last Documented VS:
Initial Vital Signs
Temp Pulse Resp BP Pulse Ox
98.6 F 99 22 168/92 96
07/25/25 18:48 07/25/25 18:48 07/25/25 18:48 07/25/25 18:48 07/25/25 18:48
Last Documented Vital Signs
Temp Pulse Resp BP Pulse Ox
98.6 F 96 18 121/73 98
07/25/25 18:48 07/25/25 22:00 07/25/25 22:00 07/25/25 22:00 07/25/25 22:00
MDM/Problems Addressed
MDM/Problems Addressed:
Glucose gradually downtrended in the ED, initially he was ordered to be given 5 units of subcu NovoLog along with a meal in the ED however glucose checked just prior to the meal was 165 thus short acting insulin was omitted. Recommend he use only
half of his Lantus tonight due to the usage of 10 units earlier today. He remained stable in the ED and is suitable for outpatient management
*Pulse Oximetry
SaO2: 96
Nasal Cannula flow liters per minute: 2
Patient hypoxic: no
*Critical Care Note
Total Time (30-74mins, 75-104mins- exclusive of procedures): Not Applicable
ED Attending Note
-
Portions of this chart may have been created with voice recognition software.� Occasional wrong word or��sound alike� substitutions may have occurred due to the inherent limitations of voice recognition software.
Discharge Plan
Departure
Patient Disposition: Home (Routine Discharge)
Date of Disposition: 07/25/25
Time of Disposition: 21:50
Patient with high blood pressure during this ER visit?: No
Discharge Problem:
Hyperglycemia
Instructions: High blood sugar in adults - ED (DC)
Prescriptions:
No Action
atorvastatin 40 MG tablet
40 mg PO DAILY Qty: 30 0RF
diltiazem HCl 120 MG capsule,extended release 24hr
120 mg PO DAILY Qty: 30 0RF
albuterol sulfate 2.5 mg /3 mL (0.083 %) Solution For Nebulization
2.5 mg INHALATION R Q6HPRN PRN (Reason: wheezing)
budesonide 0.5 mg/2 mL Suspension For Nebulization
0.5 mg INHALATION R BID
tamsulosin 0.4 MG capsule
0.4 mg PO BID
omeprazole 20 MG capsule,delayed release(DR/EC)
20 mg PO DAILY
aspirin 81 mg Tablet,Chewable
81 mg PO DAILY Qty: 0 0RF
gabapentin 100 mg Capsule
100 mg PO TID
insulin glargine [Lantus Solostar U-100 Insulin] 100 unit/mL (3 mL) Insulin Pen
10 unit SC QPM
prednisone 10 mg tablet
10 mg PO DAILY
guaifenesin 600 mg Tablet Extended Release 12hr
1,200 mg PO Q12 Qty: 10 0RF
nicotine 14 mg/24 hr Patch 24 Hour
14 mg transdermal DAILY Qty: 30 0RF
Saline Nasal 0.65 % Aerosol,[place]
1 spray intranasal QIDPRN PRN (Reason: dry nares) Qty: 44 0RF
levofloxacin 750 mg tablet
750 mg PO DAILY 5 Days Qty: 5 0RF
prednisone 10 mg tablet
See Taper PO DIRECTED Qty: 30 0RF
Taper: Prednisone DC Starting at 40 mg daily
40 mg Daily for 3 Days and 0 Hour
30 mg Daily for 3 Days and 0 Hour
20 mg Daily for 3 Days and 0 Hour
10 mg Daily for 3 Days and 0 Hour
Referrals:
[facility], [Other]
NONE,* [Family Provider, Internal Medicine]
Activity Restrictions/Additional Instructions:
In the future, do NOT use your lantus (nighttime insulin) to lower your blood sugar
Tonight, please only use 5 units of your nighttime insulin
Interventions
Interventions:
*Risk Screen - Suicide Last Done: 07/25/25 18:56
*General Assessment Last Done: 07/25/25 18:56
*Neglect/Abuse Screening Last Done: 07/25/25 18:56
*ED- Fall Risk Assessment Last Done: 07/25/25 18:56
*ED COVID-19 Vaccine History Last Done: 07/25/25 18:56
*ED Influenza Vaccine History Last Done: 07/25/25 18:56
*Nursing Disposition Last Done: 07/25/25 22:21
ED- Neurological Assessment Last Done: 07/25/25 19:00
Discharge Date and Time
Discharge Date/Time: 07/25/25 22:22
Print Language: TONGAN
[2025-07-25] MEDS: NSS 500 IV (19:10)
[2025-07-25 19:19] LABS: Hematocrit 47.7 % (39.0-52.0); Hemoglobin 14.4 g/dL (13.0-18.0); Mean Corp Hgb Conc. 30.2 g/dL (33.0-37.0); Mean Corpuscular Volume 91.9 fL (80.0-94.0); Platelet Count 131 10^3/uL (130-400); Red Cell Dist. Width 13.9 % (11.5-14.5)
[2025-07-25 19:25] LABS: ALT (SGPT) 18 U/L (0-50); AST (SGOT) 15 U/L (17-59); Albumin 3.2 g/dl (3.5-5.0); Alkaline Phosphatase 117 U/L (38-126); Blood Urea Nitrogen 22 mg/dl (9-20); Calcium 8.1 mg/dl (8.4-10.2); Chloride 93 mmol/L (98-107); Estimated Creatinine Clearance 84 ml/min; Glucose 246 mg/dl (70-99); Potassium 4.2 mmol/L (3.5-5.1); Sodium 134 mmol/L (135-145); Total Protein 5.2 g/dl (6.3-8.2); eGFR > 60.00
[2025-07-25 19:36] LABS: Carbon Dioxide 41 mmol/L (22-30)
[2025-07-25 20:37] VITALS: BP 133/84
[2025-07-25 20:51] LABS: Glucose - Point of Care 165 mg/dl (70-99)
[2025-07-25 21:00] VITALS: BP 143/75
[2025-07-25 21:50] LABS: Glucose - Point of Care 167 mg/dl (70-99)
[2025-07-25 22:00] VITALS: BP 121/73
== END 2025-07-25 22:22 | disposition home or self-care (01) ==
LOC: EMR 18:43
PROVIDERS: Physician Assistant; EMERGENCY PHYSICIAN Emergency Medicine
DX: E11.65 Type 2 diabetes mellitus with hyperglycemia (principal); E78.00 Pure hypercholesterolemia, unspecified; I11.0 Hypertensive heart disease with heart failure; I50.32 Chronic diastolic (congestive) heart failure; I48.0 Paroxysmal atrial fibrillation; F17.200 Nicotine dependence, unspecified, uncomplicated; J44.9 Chronic obstructive pulmonary disease, unspecified; Z79.4 Long term (current) use of insulin
CPT/HCPCS: 96360; 96361; 99284; 80053; 82962; 85027

== ENCOUNTER 2025-09-11 13:44 | Inpatient (IN) | payer OTHER, SELFPAY ==
[2025-09-11] VITALS (16 sets, daily range): BP systolic 103–158; BP diastolic 58–86; PULSE 2–107; BMI 20.5
--- NOTE | 2025-09-11 08:09 | ED.GENMED ---
History of Present Illness
<Promise Stacy, LEGAL REFEREE - Last Filed: 09/11/25 14:49>
General
Chief Complaint: Fall
Source: patient and ambulance crew
Exam Limitations: none
Time Seen by Provider: 09/11/25 08:07
Nursing documentation reviewed up to this point in time: agreed with
History of Present Illness
History of Present Illness:
84 yo male from [facility] where he lives alone and is wheelchair bound, w h/o IDDM, COPD on home O2 2L/min up to 6/L/min prn exertion, HFpEF, Afib (not anticoagulated), HTN, HLD, GERD,prostate CA s/p radiation tx, presents via EMS who state pt
was found on floor by his recliner and motor chair, he told them he didn't know how he got there.
He was reportedly found by his caregiver who arrived and found him.
Pt awake oriented to name, place, does not know circumstances that brought him here. He denies neck or back pain. Denies CP, abdominal pain. He states his arms are sore.
Past History
<Promise Stacy, LEGAL REFEREE - Last Filed: 09/11/25 14:49>
Past History
ED Past Medical History: Cancer, COPD, HTN, Hypercholesterolemia, NIDDM and Other (COVID pneumonitis January 2022)
ED Past Surgical History: Cholecystectomy and Urological
Social History
Tobacco: Former smoker
Alcohol: None
Personal:
Living: alone
Employment: Retired
Family History
Family History: Other (Noncontributory)
Review of Systems
<Promise Stacy, LEGAL REFEREE - Last Filed: 09/11/25 14:49>
Review of Systems
Allergies reviewed?: Yes
All Other Systems: ROS reviewed and negative except as documented in HPI and ROS
Phy Exam
<Promise Stacy, LEGAL REFEREE - Last Filed: 09/11/25 14:49>
Physical Exam
Physical Exam:
GENERAL:Tachypneic, Hypoxic. A&Ox3.
CONSTITUTIONAL: Afebrile.
EYES: clear, conjunctivae normal
ENMT: moist mucus membranes, Pharynx nl
RESPIRATORY: Regular respirations, labored, lungs with significantly diminished BS. coarse junky cough. Pulse ox 77% RA, 79% 2L n.c. O2 increased to 4 L/min 95% on ear pulse ox.
CARDIOVASCULAR: Regular rate and rhythm, no murmurs, no rubs.
GI: Soft, nontender, normal BS
MUSCULOSKELETAL: Moves with ease. Well perfused. No edema
SKIN: Warm, dry, pink. Skin tear on left forearm and right forearm
PSYCH: Anxious mood and affect. Well kept, interactive and appropriate
NEUROLOGIC: Awake, alert and oriented. No focal neurological deficits
Sepsis
<Promise Stacy, LEGAL REFEREE - Last Filed: 09/11/25 14:49>
Sepsis Screening
Sepsis Assessment: Sepsis Ruled Out
Sepsis Screen
Sepsis Screen: Sepsis Ruled Out
Date: 09/11/25
Time: 14:49
Course
<Promise Stacy, LEGAL REFEREE - Last Filed: 09/11/25 14:49>
Orders/Labs/Results
Orders:
Orders
09/11/25 08:07
Ipratropium/Albuterol Sulfate [Duoneb] 3 ml INH R NOW STA
09/11/25 08:08
CR Chest Portable - 1 View Urgent
Comment:
Reason For Exam: SOB
Reason Study Needs to be Portable: Patient Unstable
09/11/25 08:09
Electrocardiogram (*1) Urgent
Reason for Study: Shortness of Breath
EKG- Treatment ONCE
09/11/25 08:22
COVID-19 Antigen Urgent
Source: Nasal Swab
CPK Isoenzyme Urgent
Complete Blood Count/With Diff Urgent
Comprehensive Metabolic Panel Urgent
NT-proBNP Urgent
Troponin I Urgent
Influenza A+B Rapid Molecular Urgent
KRISTEN Source: Nasal Swab
Specimen Description:
09/11/25 08:41
Lactate Level [Lactic Acid] Urgent
Venous Blood Gas Urgent
%Oxygen/Room Air: Mid flow 10 L
09/11/25 08:59
Dexamethasone Sod Phosphate [Decadron] 10 mg IV NOW STA
09/11/25 09:00
Azithromycin [Zithromax] 1,000 mg 0.9% Sodium Chloride 500 ml [Nss] 490 ml IV NOW
09/11/25 09:12
Bipap [RESP] Urgent
Patient to use own unit?: No
Inspiratory Pressure (cm H2O): 5
Expiratory Pressure (cm H2O): 10
09/11/25 09:17
Azithromycin 500 mg/250 ml [Zithromax Infusion] 500 mg in 250 ml IV NOW
09/11/25 12:49
Admit/Transfer Patient As Directed
Co-Sign Provider:
Level of Care: Inpatient admission
Assign to:: IMU- Intermediate Care
Physician / Group: Dr. Reyes
Diagnosis: COPD exacerbation
Reason for Hospitalization: Acute hypoxic respiratory failure
Expected length of stay greater than two midnights?: Yes
ELOS- Estimated Length of Stay in days: 3
I certify the patient meets the requirements for IP care: Yes
09/11/25 12:50
PRN Pain Medication Management As Directed
May give lesser potent ordered pain med per pt: Yes
preference::
Protocol:: Medication orders for pain may be administered in a
manner that supports deferring to patient preference
when the pt is:
- Requesting an ordered lesser potent pain medication.
Least to most potent pain medications are defined
as: acetaminophen < NSAID < tramadol < opioids
(morphine, oxycodone, hydromorphone).
- Requesting a lesser dose of the same medication IF
ORDERED.
- Requesting a less intrusive route of administration
if both routes are prescribed by the provider (PO <
IV).
09/11/25 12:53
Code Status As Directed
Resuscitation Status: Do not resuscitate
Reached after discussion with pt or family/Healthcare POA: Yes
DNR Bracelet Application ONCE
Abnormal Lab Results
09/11/25 09/11/25
08: 08:41
WBC 12.4 H 10^3/uL
(4.8-10.8)
MCHC 30.0 L g/dL
(33.0-37.0)
Abs Immat Gran (auto) 0.2 H 10^3/uL
(0-0.05)
Absolute Neuts (auto) 9.8 H 10^3/uL
(1.4-6.5)
Absolute Lymphs (auto) 1.0 L 10^3/uL
(1.2-3.4)
Absolute Monos (auto) 1.3 H 10^3/uL
(0.1-0.6)
Immature Gran % 1.4 H %
(0-0.5)
Neutrophils % 79.5 H %
(42.2-75.2)
Lymphocytes % 8.1 L %
(20.5-51.1)
Monocytes % 10.4 H %
(1.7-9.3)
VBG pH 7.29 L
(7.32-7.43)
VBG pCO2 91 H* mmHg
(35-48)
VBG pO2 200 H mmHg
(30-50)
VBG HCO3 43.8 H mmol/L
(22-27)
Sodium 134 L mmol/L
(135-145)
Chloride 94 L mmol/L
(98-107)
Carbon Dioxide 38 H mmol/L
(22-30)
BUN 24 H mg/dl
(9-20)
Creatinine 0.6 L mg/dL
(0.7-1.3)
Glucose 231 H mg/dl
(70-99)
Lactic Acid 0.6 L mmol/L
(0.7-2.0)
Total Creatine Kinase 39 L U/L
(55-170)
Troponin I 0.061 H* ng/ml
Total Protein 6.0 L g/dl
(6.3-8.2)
09/11/25 08:22
09/11/25 08:22
Vital Signs
Initial and Last Documented VS:
Initial Vital Signs
BP
158/86
09/11/25 08:03
Last Documented Vital Signs
Pulse Resp BP Pulse Ox
87 15 103/59 96
09/11/25 10:30 09/11/25 10:30 09/11/25 10:00 09/11/25 13:07
Physician Intensivist consulted with Physician
Physician Intensivist consulted with physician?: Yes
Name of Physician Consulted: Meche
<Oscar Mcgregor, DO - Last Filed: 09/11/25 08:43>
Orders/Labs/Results
Orders:
Orders
09/11/25 08:07
Ipratropium/Albuterol Sulfate [Duoneb] 3 ml INH R NOW STA
09/11/25 08:08
CR Chest Portable - 1 View Urgent
Comment:
Reason For Exam: SOB
Reason Study Needs to be Portable: Patient Unstable
09/11/25 08:09
Electrocardiogram (*1) Urgent
Reason for Study: Shortness of Breath
EKG- Treatment ONCE
09/11/25 08:22
COVID-19 Antigen Urgent
Source: Nasal Swab
CPK Isoenzyme Urgent
Complete Blood Count/With Diff Urgent
Comprehensive Metabolic Panel Urgent
NT-proBNP Urgent
Troponin I Urgent
Influenza A+B Rapid Molecular Urgent
KRISTEN Source: Nasal Swab
Specimen Description:
09/11/25 08:41
Lactate Level [Lactic Acid] Urgent
Venous Blood Gas Urgent
%Oxygen/Room Air: Mid flow 10 L
09/11/25 08:59
Dexamethasone Sod Phosphate [Decadron] 10 mg IV NOW STA
09/11/25 09:00
Azithromycin [Zithromax] 1,000 mg 0.9% Sodium Chloride 500 ml [Nss] 490 ml IV NOW
09/11/25 09:12
Bipap [RESP] Urgent
Patient to use own unit?: No
Inspiratory Pressure (cm H2O): 5
Expiratory Pressure (cm H2O): 10
09/11/25 09:17
Azithromycin 500 mg/250 ml [Zithromax Infusion] 500 mg in 250 ml IV NOW
09/11/25 12:49
Admit/Transfer Patient As Directed
Co-Sign Provider:
Level of Care: Inpatient admission
Assign to:: IMU- Intermediate Care
Physician / Group: Dr. Reyes
Diagnosis: COPD exacerbation
Reason for Hospitalization: Acute hypoxic respiratory failure
Expected length of stay greater than two midnights?: Yes
ELOS- Estimated Length of Stay in days: 3
I certify the patient meets the requirements for IP care: Yes
09/11/25 12:50
PRN Pain Medication Management As Directed
May give lesser potent ordered pain med per pt: Yes
preference::
Protocol:: Medication orders for pain may be administered in a
manner that supports deferring to patient preference
when the pt is:
- Requesting an ordered lesser potent pain medication.
Least to most potent pain medications are defined
as: acetaminophen < NSAID < tramadol < opioids
(morphine, oxycodone, hydromorphone).
- Requesting a lesser dose of the same medication IF
ORDERED.
- Requesting a less intrusive route of administration
if both routes are prescribed by the provider (PO <
IV).
09/11/25 12:53
Code Status As Directed
Resuscitation Status: Do not resuscitate
Reached after discussion with pt or family/Healthcare POA: Yes
DNR Bracelet Application ONCE
Abnormal Lab Results
09/11/25 09/11/25
08: 08:41
WBC 12.4 H 10^3/uL
(4.8-10.8)
MCHC 30.0 L g/dL
(33.0-37.0)
Abs Immat Gran (auto) 0.2 H 10^3/uL
(0-0.05)
Absolute Neuts (auto) 9.8 H 10^3/uL
(1.4-6.5)
Absolute Lymphs (auto) 1.0 L 10^3/uL
(1.2-3.4)
Absolute Monos (auto) 1.3 H 10^3/uL
(0.1-0.6)
Immature Gran % 1.4 H %
(0-0.5)
Neutrophils % 79.5 H %
(42.2-75.2)
Lymphocytes % 8.1 L %
(20.5-51.1)
Monocytes % 10.4 H %
(1.7-9.3)
VBG pH 7.29 L
(7.32-7.43)
VBG pCO2 91 H* mmHg
(35-48)
VBG pO2 200 H mmHg
(30-50)
VBG HCO3 43.8 H mmol/L
(22-27)
Sodium 134 L mmol/L
(135-145)
Chloride 94 L mmol/L
(98-107)
Carbon Dioxide 38 H mmol/L
(22-30)
BUN 24 H mg/dl
(9-20)
Creatinine 0.6 L mg/dL
(0.7-1.3)
Glucose 231 H mg/dl
(70-99)
Lactic Acid 0.6 L mmol/L
(0.7-2.0)
Total Creatine Kinase 39 L U/L
(55-170)
Troponin I 0.061 H* ng/ml
Total Protein 6.0 L g/dl
(6.3-8.2)
09/11/25 08:22
09/11/25 08:22
Vital Signs
Initial and Last Documented VS:
Initial Vital Signs
BP
158/86
09/11/25 08:03
Last Documented Vital Signs
Pulse Resp BP Pulse Ox
87 15 103/59 96
09/11/25 10:30 09/11/25 10:30 09/11/25 10:00 09/11/25 13:07
Procedures
<Promise Stacy, LEGAL REFEREE - Last Filed: 09/11/25 14:49>
Laceration Closure
Left forrearm:
Status of Wound: clean
Size of Wound in cm: 6
Description of Wound Edges: sharp and other (skin tear)
Preparation: cleaned with saline
Type of Closure: Dermabond-skin glue (nonstick dressing applied)
Right forearm:
Status of Wound: clean
Size of Wound in cm: 3
Description of Wound Edges: sharp
Preparation: cleaned with saline
Revision/Debridement: routine- no revision
Type of Closure: Dermabond-skin glue (nonstick dressing applied)
<Promise Stacy NP - Last Filed: 09/11/25 14:49>
MDM/Problems Addressed
Differential Diagnosis Includes:
COPD exacerbation, PNA, CHF
MDM/Problems Addressed:
84 yo male from [facility] where he lives alone and is wheelchair bound, w h/o IDDM, COPD on home O2 2L/min up to 6/L/min prn exertion, HFpEF, Afib (not anticoagulated), HTN, HLD, GERD,prostate CA s/p radiation tx, presents via EMS who state pt
was found on floor by his recliner and motor chair, he told them he didn't know how he got there.
He was reportedly found by his caregiver who arrived and found him.
Pt awake oriented to name, place, does not know circumstances that brought him here. He denies neck or back pain. Denies CP, abdominal pain. He states his arms are sore (skin tears noted both forearms)
Afebrile, moderate distress due to respiratory status
CBC: Mild leukocytosis
CMP: No clinically significant abnormality, carbon dioxide pending
BNP 1420, not clinically significant for age
Troponin 0.061, most likely from COPD exacerbation
COVID-negative
Chest x-ray radiology report read: IMPRESSION:
Stable emphysematous changes without evidence of pulmonary edema or pneumonia.
VBG ordered
9:25 AM:
VBG results reviewed with Dr. Mcgregor: pCO2 91 mmHg, BiPAP ordered.
Patient is resting comfortably, breathing is much less labored, pulse ox 95%. Arousable and appropriately answering questions.
Hospitalist notified of admission.
Critical care statement: A total of 30 minutes of critical care time was provided for this patient. This includes management of unstable vital signs, evaluation of the patient at bedside, reviewing the patient's pertinent medical records, discussion
with consultants, review of old EKGs and review of pertinent medical records. This time with separate from time utilized to perform the aforementioned documented procedures
Chronic conditions affecting care:
IMPRESSION:
Stable emphysematous changes without evidence of pulmonary edema or pneumonia.
<Promise Stacy LEGAL REFEREE - Last Filed: 09/11/25 14:49>
*Radiology
Radiology exam reviewed: radiology read reviewed
*Pulse Oximetry
SaO2: 77
Oxygen Mode of Delivery: Room air
Patient hypoxic: yes
*EKG
EKG Intrepretation Date: 09/11/25
Interpretation: abnormal
Heart Rate: 108
Rate: tachycardiac
Rhythm: sinus
[place]: normal axis
Interval: normal interval
QRS Pattern: right bundle branch block
Ischemia: no ischemia
*Critical Care Note
Total Time (30-74mins, 75-104mins- exclusive of procedures): Not Applicable
ED Attending Note
<Promise Stacy, LEGAL REFEREE - Last Filed: 09/11/25 14:49>
-
Portions of this chart may have been created with voice recognition software.� Occasional wrong word or��sound alike� substitutions may have occurred due to the inherent limitations of voice recognition software.
<Oscar Mcgregor DO - Last Filed: 09/11/25 08:43>
ED Attending Note
Patient seen and examined by attending physician: Yes
I performed the substantive portion of visit, reviewed & personally made and approve the management plan that is documented in note by myself or KAREEM.: Yes
ED Attending Note:
84-year-old male brought to the emergency room after being found down on the ground next to his recliner at his facility. Patient not providing much history.
General: Sleeping but arousable by voice. Increased work of breathing
Vitals: Hypoxic, tachycardic
Head: Atraumatic
Eyes: Pupils equal, EOMI
Throat: Airway intact, no exudates
Neck: Trachea midline
Lungs: Significantly decreased breath sounds bilaterally
Heart: Regular rate, no murmurs
Neuro: Grossly nonfocal
Skin: Warm, dry, no rash
Extremities: pulses equal b/l, no edema
The patient arrives after being found on the ground he is noted to be hypoxic by medics and confirmed to be hypoxic here. We have been titrating up his oxygen and to get his pulse ox above 90%. Currently on 10 L via mid flow nasal cannula. Neb
treatments ordered. Chest x-ray shows increased interstitial markings bilaterally question pneumonia. Will obtain a venous blood gas. Patient may require BiPAP.
Discharge Plan
Departure
Patient Disposition: Admit
Date of Disposition: 09/11/25
Time of Disposition: :
Presentation/result/management discussed w/ accepting MD/DO: Hospitalist
Condition: Serious
Covid-19: Negative COVID-19
Discharge Problem:
COPD exacerbation
Interventions
Interventions:
*Risk Screen - Suicide Last Done: 09/11/25 08:58
*General Assessment Last Done: 09/11/25 08:59
*Neglect/Abuse Screening Last Done: 09/11/25 08:58
*ED COVID-19 Vaccine History Last Done: 09/11/25 08:45
*ED Influenza Vaccine History Last Done: 09/11/25 08:45
[2025-09-11 08:43] LABS: Hematocrit 48.6 % (39.0-52.0); Hemoglobin 14.6 g/dL (13.0-18.0); Mean Corp Hgb Conc. 30.0 g/dL (33.0-37.0); Mean Corpuscular Volume 93.6 fL (80.0-94.0); Nucleated Red Blood Cells % 0 % (-); Platelet Count 162 10^3/uL (130-400); Red Cell Dist. Width 13.5 % (11.5-14.5)
[2025-09-11] MEDS: DUONEB 3 ML INH ×3 (08:45→20:27)
[2025-09-11 09:00] LABS: Venous Blood Gas B.E. 12.3 mmol/L (-4 to +4); Venous Blood Gas O2 Sat % 100.0 %
[2025-09-11 09:01] LABS: COVID-19 Antigen Negative (Negative)
[2025-09-11 09:04] LABS: ALT (SGPT) 21 U/L (0-50); AST (SGOT) 18 U/L (17-59); Albumin 3.6 g/dl (3.5-5.0); Alkaline Phosphatase 105 U/L (38-126); Blood Urea Nitrogen 24 mg/dl (9-20); Calcium 8.7 mg/dl (8.4-10.2); Chloride 94 mmol/L (98-107); Estimated Creatinine Clearance 80 ml/min; Glucose 231 mg/dl (70-99); Potassium 4.1 mmol/L (3.5-5.1); Sodium 134 mmol/L (135-145); Total Protein 6.0 g/dl (6.3-8.2); eGFR > 60.00
[2025-09-11 09:10] LABS: Troponin I 0.061 ng/ml
[2025-09-11] MEDS: DECADRON 10 MG IV (09:24)
[2025-09-11 09:41] LABS: Carbon Dioxide 38 mmol/L (22-30)
[2025-09-11] MEDS: ZITHROMAX INFUSION 250 IV (10:01)
--- NOTE | 2025-09-11 10:59 | CM ---
Addendum entered by Zahra Agarwal 09/11/25 14:10:
per [employer] patient had NIV/Bipap picked up in March 2025 as it was not being used and he refused to use it. Patient was discharged from [facility] visiting nursing 08/31/25 so is no longer active with them.
Addendum entered by Zahra Agarwal 09/11/25 11:58:
left messages for [employer]; to clarify status of BIPAP and or O2, as well as [facility] to clarify if patient remains open case.
Addendum entered by Zahra Agarwal 09/11/25 11:09:
VM for patient son unable to be left as message machine not set up, VM left for secondary contact patient michel.
Original Note:
Patient seen at bedside in ED, sleeping on BIPAP. Per Chart review patient was found by aide this am on floor at [facility]. Patient unable to clarify what happened. Patient last at [facility] on 07/13/25 when he was discharged home with [facility] to follow
and per chart review patient has had BIPAP from [employer] and O2 from [employer]. CM will call and leave messages to confirm what DME is currently in apartment. Patient has consistently had [facility] to follow him at home, CM will call to [facility] to clarify if
patient remains active on service. Previously Patient reported he lived at [facility] for the past 6 years, and had supportive son Oscar [phone]. CM attempted to call but no ability to leave message as VM not set
up. CM called and left message for secondary contact patient michel.
Previously patient had reported he has a walker, w/c, nebulizer machine, home Oxygen and BIPAP. It is uncertain what the current O2 status and BIPAP status is pending calls to [employer] and [employer]. Patient previously had reported he was enrolled in PDA
waiver community based services, and receives approx 12 hours of caregiver services daily provided by [facility]. Patient current status will need to be confirmed with the agency. Patient had had [facility] multiple times in the in the past, per chart
review.
Patient has returned to his apartment at [facility] in the past, pending assessments of therapy and patient functional status discharge to SNF vs home with [facility] and [facility].
Patient PCP is unknown at this time and Patient uses the [facility] pharmacy in [place]. CM will continue to follow for discharge planning needs.
Plan; SNF vs home with [facility]; will need referral to [facility] and watch for SNF needs.
--- NOTE | 2025-09-11 12:29 | HPS.HSE ---
Family Physician
-
Family Physician: NOT KNOW UNKNOWN - PT DOES
Chief Complaint
-
SOB
History of Present Illness
84M w/COPD on home O2 2L, HFpEF, PAF, DM, P/W SOB for about 1 week, a/w dizziness, wheezing. He has had multiple hospital admissions this year for COPD exacerbations. Denies cough or sputum production, denies fever or chills or chest pain. Notes
that he was taken off of his chronic steroids about 2 weeks ago.
Medical History
Past Medical History
Past Medical History: Reports Other
Additional Past Medical History:
Chronic Hypoxic Respiratory Failure
Severe COPD
Chronic HFpEF
Paroxysmal Atrial Fibrillation
Hypertension
Diabetes Mellitus, Type II
Dysphagia
GERD
Hx Prostate CA
Past Surgical History: Reports Other
Additional Past Surgical History:
Cholecystectomy
Social History
Tobacco: Smoker (Started smoking at the age of 11. Current every day smoker. > 60 pack years total use.)
Alcohol: None
Family History
Family History: Not pertinent
Allergies / Home Medications
Allergies reflects when Allergies were last updated in [facility].
Home Medications with original date entered in [facility]
Allergy/Medication List:
Allergies
Allergy/AdvReac Type Severity Reaction Status Date / Time
No Known Allergies Allergy Verified 07/25/25 18:54
Home Medications
atorvastatin 40 mg tablet 40 mg PO DAILY High cholesterol #30 tabs 06/04/23
diltiazem HCl 120 mg capsule,extended release 24 hr 120 mg PO DAILY Arrhythmia #30 caps 06/04/23
albuterol sulfate 2.5 mg/3 mL (0.083 %) solution for nebulization 2.5 mg inhalation R Q6HPRN PRN wheezing 11/07/23
budesonide 0.5 mg/2 mL suspension for nebulization 0.5 mg inhalation R BID Lung/Breathing Issues 05/13/24
omeprazole 20 mg capsule,delayed release 20 mg PO DAILY Gastrointestinal Issue 05/13/24
tamsulosin 0.4 mg capsule 0.4 mg PO BID Urinary issue 05/13/24
aspirin 81 mg chewable tablet 81 mg PO DAILY #0 tabs 05/16/24
gabapentin 100 mg capsule 100 mg PO TID Pain 07/13/25
insulin glargine 100 unit/mL (3 mL) subcutaneous pen (Lantus Solostar U-100 Insulin) 10 unit SC QPM Diabetes 07/13/25
prednisone 10 mg tablet 10 mg PO DAILY Anti-Inflammatory 07/13/25
Held on 07/15/25. Instructions: Hold until completion of long steroid taper, then continue 10 mg daily and follow-up with [facility]
guaifenesin 600 mg tablet, extended release 12 hr 1,200 mg (2 x 600 mg) PO Q12 #10 tabs 07/15/25
levofloxacin 750 mg tablet 750 mg PO DAILY 5 days #5 tabs 07/15/25
nicotine 14 mg/24 hr daily transdermal patch 14 mg transdermal DAILY #30 ea 07/15/25
prednisone 10 mg tablet See Taper PO DIRECTED #30 tabs 07/15/25
sodium chloride 0.65 % nasal spray aerosol (Saline Nasal) 1 spray intranasal QIDPRN PRN dry nares #44 mL 07/15/25
Review of Systems
-
History Source: Patient
A 12 point ROS was completed and negative except as noted: Yes
Physical Exam
Vital Signs
Vital Signs
Pulse Resp BP Pulse Ox
87 15 103/59 94
09/11/25 10:30 09/11/25 10:30 09/11/25 10:00 09/11/25 10:30
Physical Exam
General: Respiratory Distress and Other (Wearing BiPAP, when it is removed he has difficulty breathing)
HEENT: Anicteric and PERRLA; No Moist mucous membranes
Respiratory: Wheezes, Accessory Resp Muscle Use and Decreased Breath Sounds
Cardiac: S1/S2 and Regular Rhythm; No Murmur or Rub
GI: Soft, Non Tender, Non Distended and Normal Bowel Sounds; No Organomegaly
Musculoskeletal: No Edema
Skin: No Rash
Neuro: Awake, Alert, Oriented and Nonfocal/grossly intact
Psych: Calm
Laboratory Results
-
09/11/25 08:22
09/11/25 08:22
Laboratory Results
Lactic Acid 0.6 mmol/L (0.7-2.0) L 09/11/25 08:41
Total Bilirubin 0.7 mg/dl (0.2-1.3) 09/11/25 08:22
AST 18 U/L (17-59) 09/11/25 08:22
ALT 21 U/L (0-50) 09/11/25 08:22
Alkaline Phosphatase 105 U/L (38-126) 09/11/25 08:22
Troponin I 0.061 ng/ml H* 09/11/25 08:22
Data Reviewed
-
Diagnostic Radiology: Image Personally Visualized and interpreted and Report Reviewed by me
Lab Data: Labs Reviewed by me, Discussed with Physician and Discussed with Patient
Impression/Plan
-
A/P: Patient is an 84y M with PMH significant for COPD, chronic hypoxemia and hypertension who presents to ED complaining of SOB.
Acute Exacerbation of COPD
Acute on chronic hypercapnic/hypoxemic Respiratory Insufficiency
IV Solu-Medrol
Standing DuoNebs
As needed albuterol
PO azithromycin
BiPAP initiated in ED, consulting pulmonology Dr. Harris
Paroxysmal Atrial Fibrillation
Benign Hypertension
- In sinus rhythm
- Not chronically on OAC - frequent falls at home.
- Continue diltiazem.
DM-II with neuropathy
- Stable. Continue 10 units Lantus qHS.
- Follow glucose and cover as needed with SSI
Continue gabapentin
Chronic HFpEF
Stable, compensated
ASA/statin
History of Prostate Cancer
- Continue tamsulosin.
- Bladder scan protocol.
DVT Prophylaxis: Lovenox
Code Status: DNR
--- NOTE | 2025-09-11 15:55 | CON.PUL ---
Consultation
Consultation Request
Date/Time Consultation Requested: 09/11/2025
Date/Time Consultation Performed: 09/11/2025
Medical History
-
Chief Complaint: Shortness of breath
History of Present Illness:
Patient is a very pleasant 84 gentleman with end-stage severe baseline COPD, oxygen, steroid-dependent at baseline. Patient was found on the floor by caregiver and EMS was called. Patient was brought to the emergency room and noted to have acute
on chronic hypercapnic respiratory failure with shortness of breath. Patient was placed on BiPAP with significant improvement in his mental status. In view of shortness of breath, suspected COPD exacerbation and worsening hypercapnia, pulmonary
consultation was requested for further input. Patient reports that he ran out of his chronic prednisone few days ago.
Past Medical History
Past Medical History: Reports Other
Additional Past Medical History:
Chronic Hypoxic Respiratory Failure
Severe COPD
Chronic HFpEF
Paroxysmal Atrial Fibrillation
Hypertension
Diabetes Mellitus, Type II
Dysphagia
GERD
Hx Prostate CA
Past Surgical History: Reports Other
Additional Past Surgical History:
Cholecystectomy
Social History
Tobacco: Smoker (Started smoking at the age of 11. Current every day smoker. > 70 pack years total use.)
Alcohol: None
Allergies / Home Medications
Allergies
Allergy/AdvReac Type Severity Reaction Status Date / Time
No Known Allergies Allergy Verified 07/25/25 18:54
Home Medications
�Medication �Instructions �Recorded �Confirmed �Last Taken �Type
atorvastatin 40 mg tablet 40 mg PO DAILY High cholesterol 06/04/23 07/13/25 11/06/23 Rx
#30 tabs
diltiazem HCl 120 mg 120 mg PO DAILY Arrhythmia #30 caps 06/04/23 07/13/25 11/06/23 Rx
capsule,extended release 24 hr
albuterol sulfate 2.5 mg/3 mL 2.5 mg inhalation R Q6HPRN PRN 11/07/23 07/13/25 11/06/23 History
(0.083 %) solution for nebulization wheezing
budesonide 0.5 mg/2 mL suspension 0.5 mg inhalation R BID 05/13/24 07/13/25 Unknown History
for nebulization Lung/Breathing Issues
omeprazole 20 mg capsule,delayed 20 mg PO DAILY Gastrointestinal 05/13/24 07/13/25 Unknown History
release Issue
tamsulosin 0.4 mg capsule 0.4 mg PO BID Urinary issue 05/13/24 07/13/25 Unknown History
aspirin 81 mg chewable tablet 81 mg PO DAILY #0 tabs 05/16/24 07/13/25 Unknown Rx
gabapentin 100 mg capsule 100 mg PO TID Pain 07/13/25 07/13/25 Unknown History
insulin glargine 100 unit/mL (3 10 unit SC QPM Diabetes 07/13/25 07/13/25 Unknown History
mL) subcutaneous pen (Lantus
Solostar U-100 Insulin)
prednisone 10 mg tablet 10 mg PO DAILY Anti-Inflammatory 07/13/25 07/13/25 Unknown History
Held on 07/15/25.
Instructions: Hold until
completion of long steroid
taper, then continue 10 mg
daily and follow-up with
globe mounter
guaifenesin 600 mg tablet, 1,200 mg (2 x 600 mg) PO Q12 #10 07/15/25 Unknown Rx
extended release 12 hr tabs
levofloxacin 750 mg tablet 750 mg PO DAILY 5 days #5 tabs 07/15/25 Unknown Rx
nicotine 14 mg/24 hr daily 14 mg transdermal DAILY #30 ea 07/15/25 Unknown Rx
transdermal patch
prednisone 10 mg tablet See Taper PO DIRECTED #30 tabs 07/15/25 Unknown Rx
sodium chloride 0.65 % nasal spray 1 spray intranasal QIDPRN PRN dry 07/15/25 Unknown Rx
aerosol (Saline Nasal) nares #44 mL
Review of Systems
-
Hematologic/Lymphatic: Other (All 14 systems reviewed and negative except as stated above in the history of present illness.)
Vitals / Labs / Diagnostic Testing
Vital Signs
Pulse Resp BP Pulse Ox
94 14 119/70 97
09/11/25 14:30 09/11/25 14:30 09/11/25 14:00 09/11/25 15:42
Lab Data
09/11/25 08:22
09/11/25 08:22
Microbiology
09/11/25 08:22 Nasal Swab Influenza Types A & B ([facility]) - Final
Negative for Influenza A & B, NAAT
Negative results must be combined with clinical observations
and patient history.
Nucleic Acid Amplification test (NAAT)performed on the
[employer] platform.
Diagnostic Testing:
Physical Exam
-
HEENT: Normocephalic
Cardiovascular: S1/S2
Respiratory: Wheeze
GI: Soft and Non Distended
Neurology: Awake, Alert and Oriented
Skin: Warm
General: Comfortable
Assessment
-
#1. Acute on chronic hypercapnic respiratory failure
- Due to COPD exacerbation
- Admission gas 7.29/91, compared to pCO2 around 60 which is his baseline.
- Worsening hypercapnia likely related to exacerbation of COPD.
- Patient responded well to BiPAP, currently more awake, alert and oriented. Await follow-up VBG
- Continue nightly BiPAP and as needed in addition for respiratory distress
- Now that patient is more awake and alert, is reluctant to use BiPAP, counseled regarding the importance of PAP therapy and the potential of worsening respiratory failure.
#2. Acute exacerbation of COPD
- Influenza A, B, COVID-19 screen negative. No obvious pneumonia noted on imaging
- Agree with azithromycin 500 mg daily, can continue for 3 days
- Continue DuoNeb 4 times daily scheduled, budesonide twice daily, IV Solu-Medrol
- As needed albuterol in addition
- Recommend nightly BiPAP and as needed in addition. Patient reluctant to use. Confirmed CODE STATUS DNR/DNI
- At baseline, severe COPD, prednisone and O2 dependent. Also has been on azithromycin on alternative days.
- Spirometry: (08/03/2024)FEV1/FVC postbronchodilator: 33%, FEV1: 0.47 L -19%FVC:1.38 L at 30%Flow-volume curve:Summary: Very severe airflow obstruction.
- Clinic records reviewed, at baseline patient is supposed to be on DuoNeb 4 times daily, budesonide twice daily, prednisone 10 mg daily and azithromycin 250 mg every other day. Resume at discharge
#3. History of smoking, ongoing
- Currently smokes about 4 cigarettes/day, last cigarette was a day to admission
- More than [id number] smoking history
- Ongoing smoking likely contributing to his symptoms
#4. Acute encephalopathy, due to hypercapnia on admission
- Quite improved with BiPAP, patient currently awake, alert and oriented x 3.
Other medical diagnoses:
- Paroxysmal atrial fibrillation, reportedly had not been on anticoagulation
- Hypertension
- Diabetes
- Heart failure with preserved ejection fraction
- History of prostate cancer
Patient follows up with Dr. Mae at [facility] pulmonary clinic, will resume follow-up postdischarge.
Total time spent on this consultation/encounter _57___ minutes which includes review of history, physical exam, medications, laboratory data, personal review of imaging, extensive review of outpatient records, discussion with care team and
respiratory therapy.
Data:
CXR 08/2025: Stable emphysematous changes without evidence of pulmonary edema or pneumonia.
CT Chest 12/2024: No acute disease of the chest. No evidence of pulmonary embolus.
Small pericardial effusion.
Findings consistent with moderate emphysematous disease.
Mild right upper lobe atelectasis versus scarring.
ECHO 12/2024: Left ventricular ejection fraction is 65-70% by visual assessment. Normal regional wall motion.
Enlarged right ventricular size. Low normal right ventricular systolic function.
Aortic sclerosis without stenosis.
Trace tricuspid regurgitation. Estimated pulmonary artery pressure of 20-25 mmHg.
[2025-09-11] MEDS: SOLU-MEDROL PF 40 MG IV (15:58)
[2025-09-11] MEDS: NEURONTIN 100 MG PO (15:58)
[2025-09-11 16:17] LABS: Venous Blood Gas B.E. 13.1 mmol/L (-4 to +4); Venous Blood Gas O2 Sat % 100.0 %
--- NOTE | 2025-09-11 16:30 | PTCARENOTE ---
ED admit, received originally on Bipap and drowsy although quickly weaned to 5L and now awake and alert. Has no recollection of EMS transport. Pt is active smoker, noncompliant with Bipap and states he does use 02 at home. W/C at baseline d/t
compromised respiratory status. lung sounds are diminished b/l shallow, increased effort. Sinus rhythm. abd soft NT. +BS x4 last BM this AM. POA: skin tear left FA, stage 1 sacrum. CB in reach instructed to use.
[2025-09-11 17:31] LABS: Glucose - Point of Care 196 mg/dl (70-99)
[2025-09-11] MEDS: LOVENOX 40 MG SC (18:10)
[2025-09-11] MEDS: LANTUS 0.1 UNITS SC (18:10)
[2025-09-11] MEDS: PULMICORT 0.5 MG INH (20:27)
--- NOTE | 2025-09-11 20:51 | RESPNOTE ---
BiPAP recommended while patient is sleeping. Pt refused and said ' I'am not wearing that. I do not need that'. Benefits of BiPAP provided to patient. BiPAP encouraged, pt still declined.
--- NOTE | 2025-09-11 21:43 | PTCARENOTE ---
Pt attempting to exit bed independently. wanting to sit on side of bed and move around room freely. pt asked to please return to bed. pt becoming extremely agitated with staff, raising voice, cursing. Pt on 6L midflow, desatting to 82% when
attempting to get up and yelling. pts family called in attempt to console pt, pt spoke to family but remains angry after hanging up phone. NANCI Barrow made aware of assessment. this RN at bedside with pt.
--- NOTE | 2025-09-11 22:10 | W.PN.UPDATE ---
Update Note
Progress Note Update
Reported by the nursing staff that the patient is refusing Bipap. he is trying to get out of bed. Currently SPO2 98-100% on 6L of O2 /midflow with no changes since admission.
-Patient is only destattig when is he is agitated and trying to get out of bed.
-Patient is alert and awake with NAD during assessment time, refused bipap initially but agrees to try. Abg is scheduled for am.
-Will add 1:1 for the patient safety at the mean time.
[2025-09-11] MEDS: MUCINEX PO (22:24)
[2025-09-11] MEDS: NEURONTIN PO (22:24)
[2025-09-11] MEDS: FLOMAX PO (22:24)
[2025-09-12] VITALS (12 sets, daily range): BP systolic 92–147; BP diastolic 55–85; PULSE 2–87
[2025-09-12] MEDS: SOLU-MEDROL PF 40 MG IV (04:30)
[2025-09-12 04:34] LABS: B.E. 12.7 mmol/L; O2 Saturation % 100.0 % (94-98); PCO2 62 mmHg (35-48); PO2 136 mmHg (83-108)
[2025-09-12 04:35] LABS: Hematocrit 44.6 % (39.0-52.0); Hemoglobin 13.6 g/dL (13.0-18.0); Mean Corp Hgb Conc. 30.5 g/dL (33.0-37.0); Mean Corpuscular Volume 93.1 fL (80.0-94.0); Nucleated Red Blood Cells % 0 % (-); Platelet Count 170 10^3/uL (130-400); Red Cell Dist. Width 13.4 % (11.5-14.5)
[2025-09-12 04:40] LABS: O2 Therapy 100
[2025-09-12 04:41] LABS: HCO3 40.2 mmol/L (21-28)
[2025-09-12 05:13] LABS: Blood Urea Nitrogen 26 mg/dl (9-20); Calcium 8.6 mg/dl (8.4-10.2); Chloride 96 mmol/L (98-107); Estimated Creatinine Clearance 80 ml/min; Glucose 125 mg/dl (70-99); Potassium 4.3 mmol/L (3.5-5.1); Sodium 133 mmol/L (135-145); eGFR > 60.00
--- NOTE | 2025-09-12 05:35 | W.PN.UPDATE ---
Update Note
Progress Note Update
Patient is retaining urine with bladder scan for >500-600, Patient is not able to void on his own. Staff attempted to straight cath multiple times but unable to due to not being circumcised.
Urology consult placed
[2025-09-12] MEDS: FLOMAX 0.4 MG PO ×2 (05:37→16:12)
[2025-09-12 05:41] LABS: Carbon Dioxide 37 mmol/L (22-30)
--- NOTE | 2025-09-12 05:46 | PTCARENOTE ---
Pt with decreased urine output overnight. see BladderScan and straight cath flow sheet on work list. straight cath attempted for bladderscan >400 by nursing staff. due to pts anatomy unable to place cath after first attempts. Pt refused any further
attempts to cath at this time. NANCI Barrow made aware. order received for urology consult.
[2025-09-12] MEDS: DUONEB 3 ML INH ×4 (06:25→19:48)
[2025-09-12] MEDS: PULMICORT 0.5 MG INH ×2 (06:25→19:48)
[2025-09-12 07:04] LABS: Glucose - Point of Care 127 mg/dl (70-99)
[2025-09-12] MEDS: CARDIZEM CD 120 MG PO (08:25)
[2025-09-12] MEDS: LIPITOR 40 MG PO (08:26)
[2025-09-12] MEDS: LOW STRENGTH ASPIRIN 81 MG PO (08:26)
[2025-09-12] MEDS: MUCINEX PO (08:27)
[2025-09-12] MEDS: NEURONTIN 100 MG PO ×2 (08:27→21:34)
--- NOTE | 2025-09-12 08:27 | W.PN.HOSP.TC ---
Today's Communication/Plan
-
Continue IV steroids
Much improved, no longer requiring BiPAP, back to his baseline 2L
Assessment / Plan
Assessment / Plan
84M w/ severe COPD, chronic respiratory failure with hypoxia (2 L at baseline), HFpEF, paroxysmal A-fib, and DM found down by aide, found to have acute COPD exacerbation.
Acute Exacerbation of COPD
Acute on chronic hypercapnic/hypoxemic Respiratory Insufficiency
Patient states he was chronically on oral steroid, but this was discontinued 2 weeks ago, he feels this is the precipitating event
continue IV Solu-Medrol
Standing DuoNebs
As needed albuterol
PO azithromycin 3 days
BiPAP initiated in ED, consulted pulmonology Dr. Harris
Significant improvement with Bipap. However pt refused to continue Bipap. O2 weaned to 2L NC (baseline)
Outpatient pulm follow-up for ?Advanced therapies
Elevated troponin
Suspect related to above. No chest pain.
Check repeat
Paroxysmal Atrial Fibrillation
Benign Hypertension
- In sinus rhythm
- Not chronically on OAC - frequent falls at home.
- Continue diltiazem.
DM-II with neuropathy
- Stable. Continue 10 units Lantus qHS.
- Follow glucose and cover as needed with SSI
Continue gabapentin
BG controlled
Chronic HFpEF
Stable, compensated
ASA/statin
History of Prostate Cancer
- Continue tamsulosin.
- Bladder scan protocol.
DVT Prophylaxis: Lovenox
Code Status: DNR
Anticipated Discharge: 24 - 48 hours
Subjective/Interval History
-
Date of Service: September 12, 2025
Patient was agitated overnight, pulling out tubes and lines, required one-to-one observation
He is now calm and one-to-one can be discontinued. He is awake and alert and says his breathing feels okay, he is wearing 2L NC. Discussed with bedside RN.
Objective Data
-
Labs:
Laboratory Results
09/12/25 09/12/25
04:10 04:23
WBC 7.3
Hgb 13.6
Hct 44.6
Plt Count 170
HCO3 40.2 H*
Sodium 133 L
Potassium 4.3
Chloride 96 L
Carbon Dioxide 37 H
BUN 26 H
Creatinine 0.6 L
Glucose 125 H
Calcium 8.6
Vital Signs:
Vital Signs
Temp Pulse Resp BP Pulse Ox
98.9 F 87 19 130/76 93
09/12/25 07:08 09/12/25 07:21 09/12/25 07:21 09/12/25 07:21 09/12/25 07:21
I&O
09/11/25 09/12/25 09/13/25
06:59 06:59 06:59
Intake Total 240 / 240
Output Total 450 / 450
Balance -210 / -210
Review of Systems
-
History Source: Patient
All other systems: Reviewed and negative
Physical Exam
-
General: No Apparent Distress
HEENT: Moist Mucous Membranes, Anicteric and PERRLA
Respiratory: Decreased Breath Sounds
Cardiac: Regular Rhythm and S1/S2; Negative Murmur, Rub or Gallop
GI: Soft, Nontender, Nondistended and Normal Bowel Sounds
Musculoskeletal: No Edema
Skin: Warm and Dry; Negative Rash, Ulcers or Lesions
Neuro: Awake, Alert and AO x 3
Hematologic / Lymphatic: No Lymphadenopathy
Psych: Calm
Data Reviewed
-
Labs: Labs Reviewed by me, Discussed with Nurse and Discussed with Patient
[2025-09-12] MEDS: ZITHROMAX 500 MG PO (08:28)
[2025-09-12] MEDS: PROTONIX PO (08:28)
[2025-09-12 09:29] LABS: Troponin I 0.037 ng/ml
[2025-09-12 12:05] LABS: Glucose - Point of Care 162 mg/dl (70-99)
--- NOTE | 2025-09-12 12:31 | PTCARENOTE ---
Pt is refusing cath by urology, will give flomax early this evening and pyridium will be added for pt c/o burning since cath attempted overnight.
--- NOTE | 2025-09-12 12:37 | W.PN.UPDATE ---
Update Note
Progress Note Update
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
Patient voiding but PVRs >400-500 cc.
Cr stable @0.6.
Notes some dysuria - but otherwise voiding clear yellow urine.
Prior urologic h/o prostate cancer s/p RP ~20 yrs ago.
Notes strong stream at baseline and takes tamsulosin 0.4 mg BID.
Denies h/o urethral strictures or urinary retention since prostatectomy.
Patient adamantly (but politely) refused Robles catheter placement at this time after our discussion.
Of note, he was asleep last night and missed PM dose of tamsulosin - received subsequent AM dose this morning.
Recommendations:
- Catheter placement refused by patient - no further urologic intervention warranted at this time
- Continue tamsulosin 0.4 mg BID per home regimen
- Pyridium 200 mg x1 for dysuria
- Re-consult if indicated
D/w RN.
[2025-09-12] MEDS: NOVOLOG FLEXPEN-LOW RESISTANCE SC ×2 (12:45→17:32)
--- NOTE | 2025-09-12 13:07 | PTCARENOTE ---
pt refused ssi because 'he is not diabetic'. pt confirmed that he does take lantus at night. educated about need for insulin while in hospital given increased steroids. son in room at time and aware that pt is refusing.
--- NOTE | 2025-09-12 13:34 | PTCARENOTE ---
pt refused pt/ot. refused to get oob for lunch.
--- NOTE | 2025-09-12 13:51 | W.PN.PUL3 ---
Today's Communication / Plan
-
- DC IV Solu-Medrol, initiate prednisone 30 mg daily starting this evening
- Discharge planning
Assessment
-
Patient is a very pleasant 84 gentleman with end-stage severe baseline COPD, oxygen, steroid-dependent at baseline. Patient was found on the floor by caregiver and EMS was called. Patient was brought to the emergency room and noted to have acute
on chronic hypercapnic respiratory failure with shortness of breath. Patient was placed on BiPAP with significant improvement in his mental status. In view of shortness of breath, suspected COPD exacerbation and worsening hypercapnia, pulmonary
consultation was requested for further input. Patient reports that he ran out of his chronic prednisone few days ago.
#1. Acute on chronic hypercapnic respiratory failure
- Due to COPD exacerbation
- Admission gas 7.29/91, compared to pCO2 around 60 which is his baseline.
- Worsening hypercapnia likely related to exacerbation of COPD.
- Patient responded well to BiPAP, currently more awake, alert and oriented. Follow-up VBG at baseline
- Continue nightly BiPAP and as needed in addition for respiratory distress.
- Now that patient is more awake and alert, is reluctant to use BiPAP, counseled regarding the importance of PAP therapy and the potential of worsening respiratory failure.
#2. Acute exacerbation of COPD
- Influenza A, B, COVID-19 screen negative. No obvious pneumonia noted on imaging
- Agree with azithromycin 500 mg daily, can continue for 3 days
- Continue DuoNeb 4 times daily scheduled, budesonide twice daily
- DC IV Solu-Medrol, switch to prednisone 30 mg daily starting this evening
- As needed albuterol in addition
- Recommend nightly BiPAP and as needed in addition. Patient reluctant to use. Confirmed CODE STATUS DNR/DNI
- At baseline, severe COPD, prednisone and O2 dependent. Also has been on azithromycin on alternative days, in addition to prednisone 10 mg daily. Recently ran out and had been off prednisone.
- Spirometry: (08/03/2024)FEV1/FVC postbronchodilator: 33%, FEV1: 0.47 L -19%FVC:1.38 L at 30%Flow-volume curve:Summary: Very severe airflow obstruction.
- Clinic records reviewed, at baseline patient is supposed to be on DuoNeb 4 times daily, budesonide twice daily, prednisone 10 mg daily and azithromycin 250 mg every other day. Resume at discharge
#3. History of smoking, ongoing
- Currently smokes about 4 cigarettes/day, last cigarette was a day to admission
- More than 61-[id number] smoking history
- Ongoing smoking likely contributing to his symptoms
#4. Acute encephalopathy, due to hypercapnia on admission
- Quite improved with BiPAP, patient currently awake, alert and oriented x 3.
Other medical diagnoses:
- Paroxysmal atrial fibrillation, reportedly had not been on anticoagulation
- Hypertension
- Diabetes
- Heart failure with preserved ejection fraction
- History of prostate cancer
Patient follows up with Dr. Mae at [facility] pulmonary clinic, will resume follow-up postdischarge.
Total time spent on this consultation/encounter _37___ minutes which includes review of history, physical exam, medications, laboratory data, personal review of imaging, extensive review of outpatient records, discussion with care team and
respiratory therapy.
Data:
CXR 08/2025: Stable emphysematous changes without evidence of pulmonary edema or pneumonia.
CT Chest 12/2024: No acute disease of the chest. No evidence of pulmonary embolus.
Small pericardial effusion.
Findings consistent with moderate emphysematous disease.
Mild right upper lobe atelectasis versus scarring.
ECHO 12/2024: Left ventricular ejection fraction is 65-70% by visual assessment. Normal regional wall motion.
Enlarged right ventricular size. Low normal right ventricular systolic function.
Aortic sclerosis without stenosis.
Trace tricuspid regurgitation. Estimated pulmonary artery pressure of 20-25 mmHg.
Subjective Data
-
Date of Service:
Date of Service: September 12, 2025
Subjective:
Comfortably sitting in bed in no acute distress.
Objective Data
Data Reviewed
Vital Signs / I&O / Oxygen:
Vital Signs
Temp Pulse Resp BP Pulse Ox
98.7 F 88 16 129/67 94
09/12/25 11:16 09/12/25 11:03 09/12/25 11:03 09/12/25 10:53 09/12/25 11:03
Intake and Output
09/11/25 09/12/25 09/13/25
06:59 06:59 06:59
Intake Total 240 / 240 240 / 240
Output Total 450 / 450
Balance -210 / -210 240 / 240
SaO2 94
Nasal Cannula flow liters per 2
minute
Physical Exam
General: Comfortable
HEENT: Normocephalic
Cardiovascular: S1-S2
Respiratory: Wheeze (Prolonged expiration, mild end expiratory wheezing, quite improved from 09/11)
GI: Soft and Non Distended
Neurology: Awake and Alert
Skin: Warm and Other (All 14 systems reviewed and negative except as stated above in the history of present illness.)
Labs/Micro/Reports
Lab Data
09/12/25 04:23
09/12/25 04:23
Laboratory Results
09/12/25
04:10
pH 7.42
pCO2 62 H
pO2 136 H
HCO3 40.2 H*
O2 Delivery Level 100
Microbiology
09/11/25 08:22 Nasal Swab Influenza Types A & B ([facility]) - Final
Negative for Influenza A & B, NAAT
Negative results must be combined with clinical observations
and patient history.
Nucleic Acid Amplification test (NAAT)performed on the
[employer] platform.
[2025-09-12] MEDS: NEURONTIN PO (14:46)
[2025-09-12] MEDS: DELTASONE 30 MG PO (16:12)
[2025-09-12 17:21] LABS: Glucose - Point of Care 110 mg/dl (70-99)
[2025-09-12] MEDS: LOVENOX 40 MG SC (18:09)
--- NOTE | 2025-09-12 19:54 | PTCARENOTE ---
Pt refused lantus at 6pm because he takes it at 9pm at home. Home med list adjusted. Dose held currently, pt says he will take at 9pm. handstitching machine collar feller nurse aware.
--- NOTE | 2025-09-12 21:06 | PTCARENOTE ---
Rec'd pt at change of shift from previous RN. Pt expresses he wants his medications at 21:00, but is otherwise pleasant and cooperative. C/o mild chronic pain in LUE, which he states he will take gabapentin for at 21:00. Able to have BM on BSC.
Maintained SR on CM. Maintained 2L NC. Denies SOB. Report called to 4E RN. Pt transferred to via wheelchair with assistance of PCT.
[2025-09-12 21:14] LABS: Glucose - Point of Care 132 mg/dl (70-99)
[2025-09-12] MEDS: MUCINEX 1200 MG PO (21:34)
[2025-09-12] MEDS: LANTUS SC (21:34)
[2025-09-12] MEDS: LANTUS 0.1 UNITS SC (21:42)
[2025-09-13] VITALS (8 sets, daily range): BP systolic 118–170; BP diastolic 60–91; PULSE 2–88; O2SAT 96; BMI 20.2
[2025-09-13 06:15] LABS: B.E. 11.5 mmol/L; HCO3 38.0 mmol/L (21-28); O2 Saturation % 100.0 % (94-98); PCO2 56 mmHg (35-48); PO2 105 mmHg (83-108)
[2025-09-13 07:34] LABS: Glucose - Point of Care 94 mg/dl (70-99)
[2025-09-13] MEDS: DUONEB 3 ML INH ×3 (07:51→19:22)
[2025-09-13] MEDS: PULMICORT 0.5 MG INH ×2 (07:51→19:22)
[2025-09-13] MEDS: NOVOLOG FLEXPEN-LOW RESISTANCE SC ×2 (07:52→12:39)
[2025-09-13] MEDS: DELTASONE 30 MG PO (08:07)
[2025-09-13] MEDS: LIPITOR 40 MG PO (08:07)
[2025-09-13] MEDS: FLOMAX 0.4 MG PO ×2 (08:09→20:27)
[2025-09-13] MEDS: PROTONIX 40 MG PO (08:09)
[2025-09-13] MEDS: CARDIZEM CD 120 MG PO (08:09)
[2025-09-13] MEDS: MUCINEX 1200 MG PO ×2 (08:09→20:27)
[2025-09-13] MEDS: NEURONTIN 100 MG PO ×3 (08:09→21:51)
[2025-09-13] MEDS: ZITHROMAX 500 MG PO (08:09)
[2025-09-13] MEDS: LOW STRENGTH ASPIRIN 81 MG PO (08:09)
[2025-09-13 08:50] LABS: Hematocrit 44.2 % (39.0-52.0); Hemoglobin 13.6 g/dL (13.0-18.0); Mean Corp Hgb Conc. 30.8 g/dL (33.0-37.0); Mean Corpuscular Volume 93.1 fL (80.0-94.0); Nucleated Red Blood Cells % 0 % (-); Platelet Count 150 10^3/uL (130-400); Red Cell Dist. Width 13.2 % (11.5-14.5)
[2025-09-13] MEDS: TYLENOL 650 MG PO (09:09)
[2025-09-13 09:10] LABS: Blood Urea Nitrogen 25 mg/dl (9-20); Calcium 8.5 mg/dl (8.4-10.2); Chloride 95 mmol/L (98-107); Estimated Creatinine Clearance 68 ml/min; Glucose 116 mg/dl (70-99); Potassium 3.9 mmol/L (3.5-5.1); Sodium 131 mmol/L (135-145); eGFR > 60.00
--- NOTE | 2025-09-13 10:19 | W.PN.HOSP.TC ---
Today's Communication/Plan
-
PT/OT
Assessment / Plan
Assessment / Plan
Gen-AAOx3, NAD
HEENT-NC, AT, anicteric, clear oral mm
Neck-supple
CV-reg, no M, +S1/S2
Lungs-decreased breath sounds bilaterally
Abd-soft, NT, ND
Ext-no edema
Musculoskeletal-no cyanosis, clubbing
Skin-warm and dry
Neuro-grossly non-focal
Psych-calm, cooperative
84M w/ severe COPD, chronic respiratory failure with hypoxia (2 L at baseline), HFpEF, paroxysmal A-fib, and DM found down by aide, found to have acute COPD exacerbation.
Acute Exacerbation of COPD
Acute on chronic hypercapnic/hypoxemic Respiratory failure
Patient states he was chronically on oral steroid, but this was discontinued 2 weeks ago, he feels this is the precipitating event
Now on prednisone 30 mg daily as per pulmonary.
Standing DuoNebs
As needed albuterol
PO azithromycin 3 days, today is day 3.
BiPAP initiated in ED, consulted pulmonology Dr. Harris. Will need home BiPAP arranged on discharge. [place] text sent to case management. Already has home oxygen.
Significant improvement with Bipap. However pt refused to continue Bipap. O2 weaned to 2L NC (baseline)
Outpatient pulm follow-up for ?Advanced therapies
Elevated troponin -likely acute nonischemic myocardial injury due to acute on chronic respiratory failure. Troponin trended down.
Paroxysmal Atrial Fibrillation
Benign Hypertension
- In sinus rhythm
- Not chronically on OAC - frequent falls at home.
- Continue diltiazem.
DM-II with neuropathy -hemoglobin A1c 7.8% in June. Glucose 116 this morning.
- Stable. Continue 10 units Lantus qHS.
- Follow glucose and cover as needed with SSI
Continue gabapentin
BG controlled
Chronic HFpEF
Stable, compensated
ASA/statin
History of Prostate Cancer
- Continue tamsulosin.
- Bladder scan protocol.
DVT Prophylaxis: Lovenox
Code Status: DNR
Dispo -possibly will need SNF pending PT input. Discussed with case management. He lives in [facility].
Anticipated Discharge: Within 24 hours
Subjective/Interval History
-
Date of Service: September 13, 2025
Patient seen and examined. No complaints.
Objective Data
-
Labs:
Laboratory Results
09/13/25 09/13/25
05:59 08:03
WBC 8.1
Hgb 13.6
Hct 44.2
Plt Count 150
HCO3 38.0 H
Sodium 131 L
Potassium 3.9
Chloride 95 L
Carbon Dioxide Pending
BUN 25 H
Creatinine 0.7
Glucose 116 H
Calcium 8.5
Vital Signs:
Vital Signs
Temp Pulse Resp BP Pulse Ox
98.1 F 114 20 170/91 95
09/13/25 08:03 09/13/25 08:03 09/13/25 08:03 09/13/25 08:03 09/13/25 08:03
I&O
09/12/25 09/13/25 09/14/25
06:59 06:59 06:59
Intake Total 240 / 240 360 / 360
Output Total 450 / 450 150 / 150
Balance -210 / -210 210 / 210
Review of Systems
-
History Source: Patient
All other systems: Reviewed and negative
--- NOTE | 2025-09-13 10:25 | W.PN.PUL3 ---
Today's Communication / Plan
-
Doing well, no new complaints, 95% on RA
Transitioned to PO prednisone, taper continued at discharge
OP FU to be arranged by our office
Hopeful discharge planning per team, he feels ready to go home
Assessment
-
Patient is a very pleasant 84 gentleman with end-stage severe baseline COPD, oxygen, steroid-dependent at baseline. Patient was found on the floor by caregiver and EMS was called. Patient was brought to the emergency room and noted to have acute
on chronic hypercapnic respiratory failure with shortness of breath. Patient was placed on BiPAP with significant improvement in his mental status. In view of shortness of breath, suspected COPD exacerbation and worsening hypercapnia, pulmonary
consultation was requested for further input. Patient reports that he ran out of his chronic prednisone few days ago.
#1. Acute on chronic hypercapnic respiratory failure
#2. Acute exacerbation of COPD
#3. History of smoking, ongoing
#4. Acute encephalopathy, due to hypercapnia on admission
Other medical diagnoses:
- Paroxysmal atrial fibrillation, reportedly had not been on anticoagulation
- Hypertension
- Diabetes
- Heart failure with preserved ejection fraction
- History of prostate cancer
Plan
- Due to COPD exacerbation
- Admission gas 7.29/, compared to pCO2 around 60 which is his baseline.
- Worsening hypercapnia likely related to exacerbation of COPD.
- Patient responded well to BiPAP, currently more awake, alert and oriented. Follow-up VBG at baseline 7.
- Continue nightly BiPAP and as needed in addition for respiratory distress.
- Now that patient is more awake and alert, is reluctant to use BiPAP, counseled regarding the importance of PAP therapy and the potential of worsening respiratory failure.
- Influenza A, B, COVID-19 screen negative. No obvious pneumonia noted on imaging
- Agree with azithromycin 500 mg daily, can continue for 3 days
- Continue DuoNeb 4 times daily scheduled, budesonide twice daily
- DC IV Solu-Medrol, transitioned to prednisone 30 mg daily -- continue taper
- As needed albuterol in addition
- Recommend nightly BiPAP and as needed in addition. Patient reluctant to use. Confirmed CODE STATUS DNR/DNI
- At baseline, severe COPD, prednisone and O2 dependent. Also has been on azithromycin on alternative days, in addition to prednisone 10 mg daily. Recently ran out and had been off prednisone.
- Spirometry: (08/03/2024)FEV1/FVC postbronchodilator: 33%, FEV1: 0.47 L -19%FVC:1.38 L at 30%Flow-volume curve:Summary: Very severe airflow obstruction.
- Clinic records reviewed, at baseline patient is supposed to be on DuoNeb 4 times daily, budesonide twice daily, prednisone 10 mg daily and azithromycin 250 mg every other day. Resume at discharge
- Currently smokes about 4 cigarettes/day, last cigarette was a day to admission
- More than 71-fnke-gxby smoking history
- Ongoing smoking likely contributing to his symptoms
MS Change- Quite improved with BiPAP, patient currently awake, alert and oriented x 3.
Patient follows up with Dr. Jesus at [facility], will resume follow-up postdischarge.
Data:
CXR 08/2025: Stable emphysematous changes without evidence of pulmonary edema or pneumonia.
CT Chest 12/2024: No acute disease of the chest. No evidence of pulmonary embolus. Small pericardial effusion.Findings consistent with moderate emphysematous disease.Mild right upper lobe atelectasis versus scarring.
ECHO 12/2024: Left ventricular ejection fraction is 65-70% by visual assessment. Normal regional wall motion. Enlarged right ventricular size. Low normal right ventricular systolic function. Aortic sclerosis without stenosis. Trace tricuspid
regurgitation. Estimated pulmonary artery pressure of 20-25 mmHg.
Total time spent on this consultation/encounter __40__ minutes which includes review of history, physical exam, medications, laboratory data, personal review of imaging, extensive review of outpatient records, discussion with care team and
respiratory therapy.
Subjective Data
-
Date of Service:
Date of Service: September 13, 2025
Chief Complaint: Pulmonary Follow Up
Subjective:
No new complaints, feels his SOB is getting better
He would like to go home before the holiday
Objective Data
Data Reviewed
Vital Signs / I&O / Oxygen:
Vital Signs
Temp Pulse Resp BP Pulse Ox
98.1 F 114 20 170/91 95
09/13/25 08:03 09/13/25 08:03 09/13/25 08:03 09/13/25 08:03 09/13/25 08:03
Intake and Output
09/12/25 09/13/25 09/14/25
06:59 06:59 06:59
Intake Total 240 / 240 360 / 360
Output Total 450 / 450 150 / 150
Balance -210 / -210 210 / 210
SaO2 95
Nasal Cannula flow liters per 2
minute
Physical Exam
General: Comfortable and Other (NAD)
HEENT: Normocephalic, Sinus Tenderness and Moist Mucous Membranes
Cardiovascular: S1-S2 and Regular Rhythm
Respiratory: Non-Labored Respirations and Other (diminished BS overall)
GI: Soft and Non Distended
Neurology: Awake, Alert, Oriented and No Motor Deficits
Skin: Warm and Bruising (BL UEs)
Labs/Micro/Reports
Lab Data
09/13/25 08:03
09/13/25 08:03
Laboratory Results
09/13/25
05:59
pH 7.44
pCO2 56 H
pO2 105
HCO3 38.0 H
O2 Delivery Level
Microbiology
09/11/25 08:22 Nasal Swab Influenza Types A & B ([facility]) - Final
Negative for Influenza A & B, NAAT
Negative results must be combined with clinical observations
and patient history.
Nucleic Acid Amplification test (NAAT)performed on the
[employer] platform.
[2025-09-13 10:33] LABS: Carbon Dioxide 36 mmol/L (22-30)
[2025-09-13 11:02] LABS: Glycohemoglobin (HgbA1c) 7.3 % (4.0-5.9)
[2025-09-13 12:18] LABS: Glucose - Point of Care 103 mg/dl (70-99)
[2025-09-13] MEDS: DUONEB INH (15:23)
[2025-09-13 16:51] LABS: Glucose - Point of Care 220 mg/dl (70-99)
[2025-09-13] MEDS: LOVENOX 40 MG SC (17:26)
[2025-09-13] MEDS: NOVOLOG FLEXPEN-LOW RESISTANCE 2 UNITS SC (17:26)
[2025-09-13 21:49] LABS: Glucose - Point of Care 188 mg/dl (70-99)
[2025-09-13] MEDS: LANTUS 0.1 UNITS SC (21:51)
[2025-09-14 03:35] VITALS: BP 115/62
[2025-09-14 05:10] VITALS: BMI 20.9
[2025-09-14 07:25] LABS: Glucose - Point of Care 94 mg/dl (70-99)
[2025-09-14] MEDS: DUONEB 3 ML INH ×2 (07:37→11:28)
[2025-09-14] MEDS: PULMICORT 0.5 MG INH (07:37)
[2025-09-14] MEDS: NOVOLOG FLEXPEN-LOW RESISTANCE SC ×2 (07:57→11:34)
[2025-09-14 08:03] VITALS: BP 120/73
[2025-09-14] MEDS: CARDIZEM CD 120 MG PO (08:38)
[2025-09-14] MEDS: PROTONIX 40 MG PO (08:39)
[2025-09-14] MEDS: NEURONTIN 100 MG PO (08:39)
[2025-09-14] MEDS: LIPITOR 40 MG PO (08:39)
[2025-09-14] MEDS: LOW STRENGTH ASPIRIN 81 MG PO (08:39)
[2025-09-14] MEDS: MUCINEX 1200 MG PO (08:39)
[2025-09-14] MEDS: DELTASONE 30 MG PO (08:40)
[2025-09-14] MEDS: FLOMAX 0.4 MG PO (08:40)
--- NOTE | 2025-09-14 08:48 | CM ---
Addendum entered by Marilee Ramirez RN 09/14/25 15:06:
All documents needed signed and fax to [facility] confirmed receipt of all clinical. MD and son Oscar [phone] aware that Resp therapist from [facility] will call tomorrow to set up bipap in home.Son aware that [facility] will be setting up visits
also in next 2 days. Son will drive him home. Son has portable oxygen tank for ride home.Son agree with dc plan.
Addendum entered by Marilee Ramirez RN 09/14/25 09:43:
said patient will wear Bipap and wants for dc. Contacted [facility] Bipap setting , H &P, blood gases faxed to [phone].
Awaiting further clinicla needed to complete Bipap home set up .
Original Note:
Spoke with patient in room.
He lives at [facility] . He has waiver care givers 16 hours a day 7 days a week.He has notified them he is dc and to resume services.
PT indicated VN at home.
Offered VN he requested [facility] VN. Referral placed.
Pt has home oxygen with portable .His grandson Karol will sweet pickle maker tank and drive him home.
PLAN Home with [facility]
[2025-09-14 08:58] LABS: Blood Urea Nitrogen 21 mg/dl (9-20)
[2025-09-14 08:59] LABS: Calcium 8.2 mg/dl (8.4-10.2); Carbon Dioxide 36 mmol/L (22-30); Chloride 97 mmol/L (98-107); Estimated Creatinine Clearance 82 ml/min; Glucose 49 mg/dl (70-99); Potassium 3.8 mmol/L (3.5-5.1); Sodium 134 mmol/L (135-145); eGFR > 60.00
--- NOTE | 2025-09-14 09:11 | W.PN.HOSP.TC ---
Addendum entered and electronically signed by Johnnie Mcmillan DO 09/14/25 14:36:
Hyponatremia -POA.
Addendum entered and electronically signed by Johnnie Mcmillan, 09/14/25 14:03:
Patient requires noninvasive volume ventilation with a target tidal volume due to acute on chronic respiratory failure from COPD.
Patient requires auto EPAP to prevent their airway from collapsing, and battery backup in case of power outages which exceeds the capability of a RAD.
Patient is currently on noninvasive ventilation and will need to continue NIV therapy at home.
Without NIV therapy, patient is at risk of elevated pressure arterial CO2 levels postdischarge.
Original Note:
Today's Communication/Plan
-
Discharge
Assessment / Plan
Assessment / Plan
Gen-AAOx3, NAD
HEENT-NC, AT, anicteric, clear oral mm
Neck-supple
CV-reg, no M, +S1/S2
Lungs-decreased breath sounds bilaterally
Abd-soft, NT, ND
Ext-no edema
Musculoskeletal-no cyanosis, clubbing
Skin-warm and dry
Neuro-grossly non-focal
Psych-calm, cooperative
84M w/ severe COPD, chronic respiratory failure with hypoxia (2 L at baseline), HFpEF, paroxysmal A-fib, and DM found down by aide, found to have acute COPD exacerbation.
Acute Exacerbation of COPD
Acute on chronic hypercapnic/hypoxemic Respiratory failure
Patient states he was chronically on oral steroid, but this was discontinued 2 weeks ago, he feels this is the precipitating event
Now on prednisone 30 mg daily as per pulmonary. Slow taper on discharge and eventually plan to resume baseline 10 mg daily.
Standing DuoNebs
As needed albuterol
Completed 3-day course of azithromycin.
BiPAP initiated in ED, consulted pulmonology Dr. Harris. Will need home BiPAP arranged on discharge. Patient wore the BiPAP in the hospital last night, 3-1/2 hours. He is willing to continue on discharge. Cobalt text sent to case management to
arrange. He did have BiPAP previously but it was returned due to previous noncompliance.
Outpatient pulm follow-up for ?Advanced therapies
Elevated troponin -likely acute nonischemic myocardial injury due to acute on chronic respiratory failure. Troponin trended down.
Paroxysmal Atrial Fibrillation
Benign Hypertension
- In sinus rhythm
- Not chronically on OAC - frequent falls at home.
- Continue diltiazem.
DM-II with neuropathy -hemoglobin A1c 7.8% in June. Glucose on BMP low this morning at 49 although patient asymptomatic. Accu-Chek done however an hour later was 94 without treatment.
Will lower dose of Lantus to 5 units at bedtime on discharge. Discussed with patient to monitor glucoses closely. If hyperglycemia develops after discharge with glucoses of 200s or higher he may need to resume previous dose of Lantus. Follow-up
with PCP.
- Follow glucose and cover as needed with SSI
Continue gabapentin
BG controlled
Chronic HFpEF
Stable, compensated
ASA/statin
History of Prostate Cancer
- Continue tamsulosin.
- Bladder scan protocol.
DVT Prophylaxis: Lovenox
Code Status: DNR
Dispo -stable for discharge back to [facility] today. Discussed with case management, nursing.
Follow-up with PCP, pulmonary.
32 minutes spent in discharge process.
Anticipated Discharge: Today
Subjective/Interval History
-
Date of Service: September 14, 2025
Patient seen and examined. Feeling much better. No complaints. Eager to go home.
Objective Data
-
Labs:
Laboratory Results
09/14/25
06:55
Sodium 134 L
Potassium 3.8
Chloride 97 L
Carbon Dioxide 36 H
BUN 21 H
Creatinine 0.6 L
Glucose 49 L*
Calcium 8.2 L
Vital Signs:
Vital Signs
Temp Pulse Resp BP Pulse Ox
97.8 F 91 18 120/73 97
09/14/25 08:03 09/14/25 08:38 09/14/25 08:03 09/14/25 08:38 09/14/25 08:03
I&O
09/13/25 09/14/25 09/15/25
06:59 06:59 06:59
Intake Total 360 / 360 1380 / 1380
Output Total 150 / 150 150 / 150
Balance 210 / 210 1230 / 1230
Review of Systems
-
History Source: Patient
All other systems: Reviewed and negative
--- NOTE | 2025-09-14 09:34 | W.DS.TRANS ---
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
-
Discharge Instructions:
Discharge Diagnosis/Procedures COPD exacerbation
Diet Diabetic, Carb Controlled
Activity As tolerated
Driving Restrictions As prior to admission
Bathing Restrictions None
Instructions:
Stand-Alone Forms:
Changes to Home Medications: Yes
Discharge Medications:
DC Medications w/original date entered in [facility]
atorvastatin 40 mg tablet 40 mg PO DAILY High cholesterol #30 tabs 06/04/23
diltiazem HCl 120 mg capsule,extended release 24 hr 120 mg PO DAILY Arrhythmia #30 caps 06/04/23
albuterol sulfate 2.5 mg/3 mL (0.083 %) solution for nebulization 2.5 mg inhalation R Q6HPRN PRN wheezing 11/07/23
budesonide 0.5 mg/2 mL suspension for nebulization 0.5 mg inhalation R BID Lung/Breathing Issues 05/13/24
omeprazole 20 mg capsule,delayed release 20 mg PO DAILY PRN Gastrointestinal Issue 05/13/24
tamsulosin 0.4 mg capsule 0.4 mg PO BID Urinary issue 05/13/24
aspirin 81 mg chewable tablet 81 mg PO DAILY #0 tabs 05/16/24
gabapentin 100 mg capsule 100 mg PO TID PRN Pain 07/13/25
prednisone 10 mg tablet 10 mg PO DAILY Anti-Inflammatory 07/13/25
Held on 09/14/25. Instructions: Resume 10 mg daily after you complete the prednisone taper.
sodium chloride 0.65 % nasal spray aerosol (Saline Nasal) 1 spray intranasal QIDPRN PRN dry nares #44 mL 07/15/25
acetaminophen 325 mg tablet (Tylenol) 650 mg PO Q6H PRN pain 09/12/25
prednisone 10 mg tablet 10 mg PO DIRECTED #30 tabs 09/13/25
insulin glargine 100 unit/mL (3 mL) subcutaneous pen (Lantus Solostar U-100 Insulin) 5 unit (0.05 mL) SC HS Diabetes #0 mL 09/14/25
Home Medication Changes
Lantus dose reduced to 5 units nightly
Pending Results: No
--- NOTE | 2025-09-14 10:59 | PN.CDI ---
CDI
- -
CDI:
Physician Documentation Request
Admit Date: 09/11/25 13:44
Dear Doctor Deyanira,
Patient being managed for COPD exacerbation.
Sodium results:
09/11/25 09/12/25 09/13/25
08:22 04:23 08:03
Sodium 134 L 133 L 131 L
09/14/25
06:55
Sodium 134 L
Could you please provide a diagnosis that supports the above lab abnormalities and additional evaluation, monitoring:
Hyponatremia
Abnormal lab value clinically insignificant
Other
Use of terms such as suspected, likely, concern for, or probable (associated with a specific diagnosis that is being evaluated, monitored, or treated as if it exists) are acceptable and can be coded in the inpatient setting, when documented at the
time of discharge.
Thank you,
Shawna Peter RN, BSN
CDI Specialist
tiger text
Please use your independent medical judgment in providing your response.
[2025-09-14 11:10] VITALS: BP 122/69
[2025-09-14 11:21] LABS: Glucose - Point of Care 84 mg/dl (70-99)
[2025-09-14] MEDS: DUONEB INH (14:46)
[2025-09-14 15:20] VITALS: BP 131/69
== END 2025-09-14 15:34 | disposition home health service (06) | DRG 190 ==
LOC: 4 EAST ACU 13:44
PROVIDERS: Registered Nurse; ADMITTING PHYSICIAN Internal Medicine; ATTENDING PHYSICIAN Hospitalist; CONSULT PHYSICIAN Internal Medicine; EMERGENCY PHYSICIAN Emergency Medicine
PROC: 5A09357 Assistance with Respiratory Ventilation, Less than 24 Consecutive Hours, Continuous Positive Airway Pressure (ICD-10-PCS; 2025-09-11)
DX: J44.1 Chronic obstructive pulmonary disease with (acute) exacerbation (principal); J96.21 Acute and chronic respiratory failure with hypoxia; J96.22 Acute and chronic respiratory failure with hypercapnia; I50.32 Chronic diastolic (congestive) heart failure; I5A Non-ischemic myocardial injury (non-traumatic); G93.40 Encephalopathy, unspecified; E87.1 Hypo-osmolality and hyponatremia; I48.0 Paroxysmal atrial fibrillation; I11.0 Hypertensive heart disease with heart failure; E11.40 Type 2 diabetes mellitus with diabetic neuropathy, unspecified; K21.9 Gastro-esophageal reflux disease without esophagitis; I45.10 Unspecified right bundle-branch block; R13.10 Dysphagia, unspecified; E78.5 Hyperlipidemia, unspecified; R29.6 Repeated falls; F17.210 Nicotine dependence, cigarettes, uncomplicated; W05.0XXA Fall from non-moving wheelchair, initial encounter; Y93.9 Activity, unspecified; Y92.098 Other place in other non-institutional residence as the place of occurrence of the external cause; Z60.2 Problems related to living alone; Z66 Do not resuscitate; Z79.4 Long term (current) use of insulin; Z99.3 Dependence on wheelchair; Z99.81 Dependence on supplemental oxygen; Z85.46 Personal history of malignant neoplasm of prostate; Z92.3 Personal history of irradiation; Z90.49 Acquired absence of other specified parts of digestive tract; Z79.52 Long term (current) use of systemic steroids; Z79.82 Long term (current) use of aspirin; Z79.51 Long term (current) use of inhaled steroids; Z11.52 Encounter for screening for COVID-19
CPT/HCPCS: 12004; 36600; 71045; 80048; 80053; 82550; 82805; 82962; 83036; 83605; 83880; 84484; 85025; 87502; 87811; 93005; 94640; 94660; 96374; 96375; 97163; 99291

== ENCOUNTER 2025-09-17 08:18 | Inpatient (IN) | payer OTHER, SELFPAY ==
[2025-09-16] VITALS (20 sets, daily range): BP systolic 83–163; BP diastolic 47–87; PULSE 2–123; BMI 20.6
[2025-09-16 03:31] LABS: Hematocrit 49.2 % (39.0-52.0); Hemoglobin 14.8 g/dL (13.0-18.0); Mean Corp Hgb Conc. 30.1 g/dL (33.0-37.0); Mean Corpuscular Volume 93.7 fL (80.0-94.0); Nucleated Red Blood Cells % 0 % (-); Platelet Count 143 10^3/uL (130-400); Red Cell Dist. Width 13.4 % (11.5-14.5)
[2025-09-16 03:53] LABS: ALT (SGPT) 21 U/L (0-50); AST (SGOT) 17 U/L (17-59); Albumin 3.6 g/dl (3.5-5.0); Alkaline Phosphatase 109 U/L (38-126); Blood Urea Nitrogen 27 mg/dl (9-20); Calcium 9.3 mg/dl (8.4-10.2); Carbon Dioxide 38 mmol/L (22-30); Chloride 98 mmol/L (98-107); Glucose 111 mg/dl (70-99); Potassium 4.4 mmol/L (3.5-5.1); Sodium 137 mmol/L (135-145); Total Protein 5.9 g/dl (6.3-8.2); eGFR > 60.00
--- NOTE | 2025-09-16 04:24 | ED.GENMED ---
History of Present Illness
General
Chief Complaint: Flank Pain
Source: patient and ambulance crew
Exam Limitations: none
Time Seen by Provider: 09/16/25 04:16
Nursing documentation reviewed up to this point in time: agreed with
History of Present Illness
History of Present Illness:
Note:
CHIEF COMPLAINT(S)
Lower back pain and shortness of breath.
HISTORY OF PRESENT ILLNESS
The patient is an 84-year-old male who reports waking up with pain for the first time, localized to his lower back, as well as experiencing shortness of breath. He describes the pain as significant, originating in the back but does not indicate any
abdominal or flank tenderness. The patient has not noticed any blood in his urine and reports urinating normally. He mentions difficulty breathing and is currently on home oxygen therapy, though the specific volume and method were unclear in the
conversation. The patient has no known drug allergies. He noted undergoing some evaluation after a fall but did not specify details about the results of that checkup. The patient lives alone.
MEDICATIONS
The patient is not allergic to any known medications.
PHYSICAL EXAM
General: Alert, in mild distress due to pain.
Respiratory: Increased work of breathing, wheezing present.
abdomen: bruising right flank, soft nontender
ext: no edema, normal pulses
PROBLEM LIST
- Acute: Lower back pain, shortness of breath.
PLAN
1. Administer morphine to address the patients pain.
2. Provide a breathing treatment to alleviate shortness of breath.
3. Order a computed tomography scan of the chest to evaluate further.
DIFFERENTIAL DIAGNOSIS
The Differential Diagnosis includes, in no particular order and is not limited to:
1. Musculoskeletal back pain
2. Pulmonary embolism
3. Chronic obstructive pulmonary disease exacerbation
4. Pneumonia
5. Congestive heart failure
6. Urinary tract infection
7. Renal calculi
8. Aortic dissection
9. Rib fracture
10. Pneumothorax.
CARE-UPDATE
09/16/25 - 05:54
Added findings from imaging. Chest X-ray reveals severe emphysema. CT of the pelvis indicates right hydronephrosis attributed to a 3mm obstructing calculus at the right UVJ. There is an observation of a right renal mass versus renal cyst, and a
compression fracture at L1 is noted.
Disposition:
SUMMARY OF ENCOUNTER
The patient is an 84-year-old male who presented with lower back pain and shortness of breath. The patient was managed with opioid analgesics for pain control, given a breathing treatment which showed mild improvement, and oxygen therapy was
continued. Imaging studies revealed severe emphysema, a right ureteral calculus with subsequent hydronephrosis, a right renal mass or cyst, and an L1 vertebral compression fracture. The patients difficulty in breathing and significant back pain were
indicative of multiple underlying issues which required further evaluation and management in a hospital setting.
DISPOSITION
Admit to Intermediate Medical Unit (IMU) level of care.
ASSESSMENT
Chronic obstructive pulmonary disease (COPD) exacerbation, right ureteral calculus leading to hydronephrosis, potential right renal mass or cyst, and compression fracture of L1.
EMERGENCY TREATMENTS ADMINISTERED
1. Morphine for pain management.
2. Breathing treatment with a combination of albuterol and ipratropium (Duoneb).
PLAN
1. Admit to the hospital for further evaluation and management.
2. Continue pain management.
3. Monitor respiratory status and adjust oxygen therapy as needed.
4. Await urinalysis and further imaging for renal assessment.
INDEPENDENT REVIEW OF LABS AND INTERPRETATION OF TESTS
- My independent interpretation of the chest X-ray is severe emphysema.
- My independent interpretation of CT scan of the pelvis shows right hydronephrosis due to a 3mm obstructing calculus at the right ureterovesical junction, a right renal mass versus cyst, and a compression fracture at L1.
MEDICATION RECONCILIATION
- Administered Duoneb (albuterol and ipratropium) for breathing treatment.
- Morphine for pain management.
MEDICAL DECISION MAKING
- Number and Complexity of Problems Addressed: Chronic conditions affecting care include COPD exacerbation, lower back pain, renal calculus, potential renal mass or cyst.
- Complex data reviewed includes imaging interpretations independently performed.
- Risk of complications is high due to multiple issues, requiring hospital admission for close monitoring and management.
DIAGNOSIS
- Chronic obstructive pulmonary disease (COPD) exacerbation, ICD-10: J44.1
- Right ureteral calculus with hydronephrosis, ICD-10: N20.1
- Right renal mass versus cyst, ICD-10: N28.89
- Compression fracture of L1 vertebra, ICD-10: S32.010A
Past History
Past History
ED Past Medical History: Cancer, COPD, HTN, Hypercholesterolemia, NIDDM and Other (COVID pneumonitis January 2022)
ED Past Surgical History: Cholecystectomy and Urological
Social History
Tobacco: Former smoker
Alcohol: None
Personal:
Living: alone
Employment: Retired
Family History
Family History: Other (Noncontributory)
Phy Exam
Physical Exam
Physical Exam:
.
Course
Orders/Labs/Results
Orders:
Orders
09/16/25 03:19
IV Insert/Care/Rem.- Treatment PRN
09/16/25 03:23
Complete Blood Count/With Diff Urgent
Comprehensive Metabolic Panel Urgent
09/16/25 04:22
IV Insert/Care/Rem.- Treatment PRN
Straight cath- Treatment ONCE
Dexamethasone Sod Phosphate [Decadron] 10 mg IV NOW STA
Ipratropium/Albuterol Sulfate [Duoneb] 3 ml INH R NOW STA
Morphine Sulfate 4 mg IV NOW STA
Ondansetron Injectable [Zofran] 4 mg IV NOW STA
09/16/25 04:23
CT Abd/pel Without Iv Or Oral Urgent
Comment:
Reason For Exam: right flank pain
Urinalysis Reflex To Culture Urgent
Date Specimen was Collected: 09/16/25
Time Specimen was Collected: 05:58
CR Chest Portable - 1 View Urgent
Comment:
Reason For Exam: short of breath
Reason Study Needs to be Portable: Patient Unstable
Abnormal Lab Results
09/16/25
03:23
MCHC 30.1 L g/dL
(33.0-37.0)
MPV 10.6 H fL
(7.4-10.4)
Abs Immat Gran (auto) 0.1 H 10^3/uL
(0-0.05)
Absolute Neuts (auto) 7.3 H 10^3/uL
(1.4-6.5)
Absolute Lymphs (auto) 0.4 L 10^3/uL
(1.2-3.4)
Immature Gran % 1.0 H %
(0-0.5)
Neutrophils % 91.7 H %
(42.2-75.2)
Lymphocytes % 5.4 L %
(20.5-51.1)
Monocytes % 0.9 L %
(1.7-9.3)
Carbon Dioxide 38 H mmol/L
(22-30)
BUN 27 H mg/dl
(9-20)
Glucose 111 H mg/dl
(70-99)
Total Protein 5.9 L g/dl
(6.3-8.2)
09/16/25 03:23
09/16/25 03:23
Vital Signs
Initial and Last Documented VS:
Initial Vital Signs
Pulse Resp Pulse Ox
89 24 88
09/16/25 03:09 09/16/25 03:09 09/16/25 03:09
Last Documented Vital Signs
Temp Pulse Resp BP Pulse Ox
97.6 F 132 24 163/66 90
09/16/25 03:21 09/16/25 05:00 09/16/25 05:00 09/16/25 04:00 09/16/25 05:00
*Pulse Oximetry
SaO2: 92
Nasal Cannula flow liters per minute: 3
Patient hypoxic: no
*Critical Care Note
Total Time (30-74mins, 75-104mins- exclusive of procedures): Not Applicable
ED Attending Note
-
Portions of this chart may have been created with voice recognition software.� Occasional wrong word or��sound alike� substitutions may have occurred due to the inherent limitations of voice recognition software.
Discharge Plan
Departure
Patient Disposition: Admit
Date of Disposition: 09/16/25
Time of Disposition: 05:47
Admit to: IMU
Presentation/result/management discussed w/ accepting MD/DO: Hospitalist
Patient with high blood pressure during this ER visit?: Yes
Condition: Fair
Discharge Problem:
Acute exacerbation of chronic obstructive pulmonary disease, Calculus of distal right ureter, Fracture of L1 vertebra
Prescriptions:
No Action
atorvastatin 40 MG tablet
40 mg PO DAILY Qty: 30 0RF
diltiazem HCl 120 MG capsule,extended release 24hr
120 mg PO DAILY Qty: 30 0RF
albuterol sulfate 2.5 mg /3 mL (0.083 %) Solution For Nebulization
2.5 mg INHALATION R Q6HPRN PRN (Reason: wheezing)
budesonide 0.5 mg/2 mL Suspension For Nebulization
0.5 mg INHALATION R BID
tamsulosin 0.4 MG capsule
0.4 mg PO BID
omeprazole 20 MG capsule,delayed release(DR/EC)
20 mg PO DAILY PRN (Reason: Gastrointestinal Issue)
aspirin 81 mg Tablet,Chewable
81 mg PO DAILY Qty: 0 0RF
gabapentin 100 mg Capsule
100 mg PO TID PRN (Reason: Pain)
prednisone 10 mg tablet
10 mg PO DAILY
Rx Instructions:
continue after prednisone taper
Saline Nasal 0.65 % Aerosol,[place]
1 spray intranasal QIDPRN PRN (Reason: dry nares) Qty: 44 0RF
acetaminophen [Tylenol] 325 mg Tablet
650 mg PO Q6H PRN (Reason: pain )
prednisone 10 mg Tablet
10 mg PO DIRECTED Qty: 30 0RF
Rx Instructions:
3 tabs daily x 5 days, 2 tabs daily x 5 days, then resume 1 tab daily.
insulin glargine [Lantus Solostar U-100 Insulin] 100 unit/mL (3 mL) Insulin Pen
5 unit SC HS Qty: 0 0RF
Referrals:
UNKNOWN - PT DOES,NOT KNOW [Family Provider]
Interventions
Interventions:
*Risk Screen - Suicide Last Done: 09/16/25 03:09
*General Assessment Last Done: 09/16/25 03:09
*Neglect/Abuse Screening Last Done: 09/16/25 03:09
*ED- Fall Risk Assessment Last Done: 09/16/25 03:09
*ED COVID-19 Vaccine History Last Done: 09/16/25 03:09
*ED Influenza Vaccine History Last Done: 09/16/25 03:09
EF-Fkwewq-Bbzddfgtaj Assessment Last Done: 09/16/25 03:29
ED-Male Genitourinary Assessment Last Done: 09/16/25 03:29
Discharge Date and Time
Print Language: SAL[place]ADORE[place]
[2025-09-16] MEDS: DUONEB 3 ML INH ×3 (04:32→20:22)
[2025-09-16] MEDS: ZOFRAN 4 MG IV (04:34)
[2025-09-16] MEDS: MORPHINE SULFATE 4 MG IV (04:36)
[2025-09-16] MEDS: DECADRON 10 MG IV (04:38)
--- NOTE | 2025-09-16 06:10 | HPS.HSE ---
Addendum entered and electronically signed by Ermias Sierra MD 09/16/25 07:07:
Discussed case with urology
� Given patient's risk profile, conservative approach with tamsulosin, pain control for now as patient has a very good chance of passing the 3 mm stone.
� Will continue to follow
� UA is not frankly infectious, will continue IV ceftriaxone for now
-Will switch status to obs
Original Note:
Family Physician
-
Family Physician: NOT KNOW UNKNOWN - PT DOES
Chief Complaint
-
Flank pain
History of Present Illness
This is a 84-year-old male who has past medical history significant for proximal atrial fibrillation, not on anticoagulation, hypertension, diabetes, CHF with preserved EF, history of prostate cancer, COPD on 2 L home O2 was recently admitted for
hypoxic respiratory failure secondary to acute COPD exacerbation requiring BiPAP and treated with steroids and course of antibiotics with improvement status post discharged 2 days ago presented to the emergency department with acute episode of flank
pain.
Patient was just discharged from the hospital for COPD exacerbation. He is to be started on the BiPAP but this has not arrived at home yet. He apparently was doing well after discharge until waking up with severe right-sided flank pain. He was
short of breath at that time. He has not noticed any hematuria. He denies any fevers or chills. He denies any diarrhea. He does not episode of nausea.
On arrival in the emergency department he was in respiratory distress, he was tachycardic to the 130s, he was in severe pain. After receiving a dose of morphine is tachycardia and respiratory compromise did improve. He is now on BiPAP 15/5 resting
comfortably.
Temperature is 91.6, oxygen saturation 93% on 10 L BiPAP, blood pressure is 100/55 after morphine, heart rate pain is now in the 114 range with respiratory rate of 24.
CBC shows a white count of 7.9 with a 14.8 plate count of 143. Electrolytes are stable except for his chronic CO2 retention with bicarb of 38. BUN/creatinine is stable at 27 and 0.7
CBC was completely unremarkable. Electrolytes BUN/creatinine were normal. Chest x-ray shows no bilateral emphysema with severe bilateral lung hyperinflation and no acute infiltrates.
CT of the abdomen pelvis shows moderate acute right hydroureteronephrosis secondary to a 3 mm obstructing calculus at the right ureterovesicular junction. There is a large 7.5 cm rim calcified right lower pole renal mass containing both cystic and
solid components.
UA still pending at this time.
Medical History
Past Medical History
Past Medical History: Reports Other
Additional Past Medical History:
Chronic Hypoxic Respiratory Failure
Severe COPD
Chronic HFpEF
Paroxysmal Atrial Fibrillation
Hypertension
Diabetes Mellitus, Type II
Dysphagia
GERD
Hx Prostate CA
Past Surgical History: Reports Other
Additional Past Surgical History:
Cholecystectomy
Social History
Tobacco: Smoker (Started smoking at the age of 11. Current every day smoker. > 60 pack years total use.)
Alcohol: None
Family History
Family History: Not pertinent
Allergies / Home Medications
Allergies reflects when Allergies were last updated in [facility].
Home Medications with original date entered in [facility]
Allergy/Medication List:
Allergies
Allergy/AdvReac Type Severity Reaction Status Date / Time
No Known Allergies Allergy Verified 09/16/25 03:08
Home Medications
1. Atorvastatin 40 mg tablet 40 mg PO DAILY High cholesterol #30
tabs 06/04/23.
2. Diltiazem HCl 120 mg capsule,extended release 24 hr 120 mg PO
DAILY Arrhythmia #30 caps 06/04/23.
3. Albuterol sulfate 2.5 mg/3 mL (0.083 %) solution for
nebulization 2.5 mg inhalation R Q6HPRN PRN wheezing 11/07/23.
4. Budesonide 0.5 mg/2 mL suspension for nebulization 0.5 mg
inhalation R BID Lung/Breathing Issues 05/13/24.
5. Omeprazole 20 mg capsule,delayed release 20 mg PO DAILY PRN
Gastrointestinal Issue 05/13/24.
6. Tamsulosin 0.4 mg capsule 0.4 mg PO BID Urinary issue 05/13/24.
7. Aspirin 81 mg chewable tablet 81 mg PO DAILY #0 tabs 05/16/24.
8. Gabapentin 100 mg capsule 100 mg PO TID PRN Pain 07/13/25.
9. Prednisone 10 mg tablet 10 mg PO DAILY Anti-Inflammatory
07/13/25 Held on 09/14/25. Instructions: Resume 10 mg daily after
you complete the prednisone taper.
10. Sodium chloride 0.65 % nasal spray aerosol (Saline Nasal) 1
spray intranasal QIDPRN PRN dry nares #44 mL 07/15/25.
11. Acetaminophen 325 mg tablet (Tylenol) 650 mg PO Q6H PRN pain
09/12/25.
12. Prednisone 10 mg tablet 10 mg PO DIRECTED #30 tabs 09/13/25.
13. Insulin glargine 100 unit/mL (3 mL) subcutaneous pen (Lantus
Solostar U-100 Insulin) 5 unit (0.05 mL) SC HS Diabetes #0 mL
09/14/25.
Review of Systems
-
Constitutional: Reports No Symptoms
EENT: Reports No Symptoms
Respiratory: Reports Trouble Breathing
Cardiac: Reports No Symptoms
Abdomen/GI: Reports No Symptoms
: Reports Flank Pain
Musculoskeletal: Reports No Symptoms
Skin: Reports No Symptoms
Neurological: Reports No Symptoms
Endocrine: Reports No Symptoms
Hematologic/Lymphatic: Reports No Symptoms
Psych: Reports No Symptoms
Physical Exam
Vital Signs
Vital Signs
Temp Pulse Resp BP Pulse Ox
97.6 F 132 24 163/66 90
09/16/25 03:21 09/16/25 05:00 09/16/25 05:00 09/16/25 04:00 09/16/25 05:00
Physical Exam
General: Comfortable (Patient appears significantly more more comfortable after receiving morphine and currently on BiPAP 04/03) and Other
HEENT: Anicteric and PERRLA; No Moist mucous membranes
Respiratory: Clear and Decreased Breath Sounds
Cardiac: S1/S2, Regular Rhythm and Tachycardia; No Murmur or Rub
GI: Soft, Non Tender, Non Distended and Normal Bowel Sounds; No Organomegaly
Rectal: Deferred by Provider
Genito-urinary: Deferred by me
Musculoskeletal: No Clubbing, No Cyanosis and No Edema
Skin: No Rash
Neuro: Alert, Oriented and Nonfocal/grossly intact
Psych: Calm
Laboratory Results
-
09/16/25 03:23
09/16/25 03:23
Laboratory Results
Total Bilirubin 0.8 mg/dl (0.2-1.3) 09/16/25 03:23
AST 17 U/L (17-59) 09/16/25 03:23
ALT 21 U/L (0-50) 09/16/25 03:23
Alkaline Phosphatase 109 U/L (38-126) 09/16/25 03:23
Data Reviewed
-
Diagnostic Radiology: Image Personally Visualized and interpreted and Report Reviewed by me
CT Scan: Report Reviewed by me
Medical Tests (Nuc Med, Echo, EKG etc): Image Personally Visualized and interpreted
Lab Data: Labs Reviewed by me
Old Records: Reviewed
Impression/Plan
-
IMPRESSION:
84-year-old with advanced COPD on home oxygen and now recently prescribed BiPAP after admission and discharged on 1124 for severe hypoxic and hypercarbic respiratory failure requiring BiPAP titration and treatment for COPD exacerbation who now
presents to the emergency department with flank pain and found to have a obstructing 3 mm left ureterovesical junction stone with moderate acute right hydroureteronephrosis. He is also found to have a 7.6 cm calcified right lower pole renal mass
with differential including a complex right renal cyst and associated right renal cell carcinoma. He is breathing is improved on BiPAP and after morphine. Suspect his shortness of breath is secondary to his flank pain and underlying severe
emphysema.
PLAN:
Shortness of breath�chronic emphysema, slightly aspirated in the setting of this pain. I do not believe he has a new COPD exacerbation as he was just discharged after being treated in stable condition and awaiting BiPAP at home.
� Admit to IMU for now
� Continue BiPAP until patient is much more comfortable, is currently on 15/550 respiratory rate in the low 20s
� Will check a venous blood gas in 1 hour compared to his priors
� No indication for acute IV steroids
� Will continue with inhaled steroids, as needed albuterol and a prednisone taper (currently on 30mg daily for next 4 days)
-Will get pulmonary consult for now due to possibility of procedure for risk kidney stone
Symptomatic nephrolithiasis�right 3 mm UVJ stone with acute moderate hydronephrosis. Renal function is preserved. Is afebrile and has no peripheral leukocytosis. UA still pending, issues blood cells and 1+ leukocyte esterase
� No strong evidence for infection at this time, however pending possible procedure will start IV ceftriaxone
� Urology consulted
� N.p.o.
� Will hold anticoagulation for now, patient is not on any anticoagulation
� Continue tamsulosin for now
� Criteria very high risk high risk for anesthesia procedure,
Atrial fibrillation
� Continue diltiazem
� Continue aspirin
Type 2 diabetes
� Sliding scale insulin for now
DVT prophylaxis -SCDs for now, pending urology evaluation
CODE STATUS�DNR
[2025-09-16 06:29] LABS: Urine Character Slightly Cloudy (Clear)
[2025-09-16 06:52] LABS: Urine Squamous Cell 0-2 /LPF (Few); Urine White Cell 16-20 /HPF (0-5)
--- NOTE | 2025-09-16 10:02 | CM ---
Initial assessment completed with son via phone. Pt is sleeping with BIPAP when room visit done.
Pt is an 84yr old male admitted on OBS for resp failure and nephrolithiasis. OBS issued verbally to son via phone.
Pt has had multiple recent admissions with most recent dc 09/14 to home with order for BiPap and [facility]. Per son, [facility] attempted delivery of BiPap 09/15/25 but pt refused it and would not allow them in.
Pt lives at [address] apartments alone. Pt does drive but needs ADLs and IADL assistance and has Medicaid Waiver aides through [facility] 16hrs/day 7days a week. Per son, Oct 03 he is being evaluated for 24hrs.
DME at home is O2 through [employer] walker, W/C, and nebulizer. Pt uses 2L of O2 at baseline.
Pt has been to [facility] and has used [facility]. [facility] was most recent referral, though they had not started at this point.
SW and son talked about SNF placement, and son says that pt has said multiple times that he wants to return to [facility], but not sure if he would ultimately be agreeable if it was set up. Son says he is noncompliant and can be resistive.
Plan; TBD; Home with VN vs SNF
[2025-09-16] MEDS: VENTOLIN NEBULES 2.5 MG INH (10:23)
[2025-09-16] MEDS: PULMICORT 0.5 MG INH ×2 (10:23→20:22)
--- NOTE | 2025-09-16 10:34 | W.PN.UPDATE ---
Update Note
Progress Note Update
84M admitted w/ COPD exacerbation.
CTAP w/o IV =>
1. MODERATE ACUTE RIGHT HYDROURETERONEPHROSIS secondary to a 3 mm obstructing calculus at the right ureterovesical junction.
2. Large 7.5 cm rim-calcified right lower pole renal mass containing both cystic and solid components. Diagnostic possibilities are (1) RIGHT RENAL CELL CARCINOMA or (2) a complex right renal cyst.
3. Large left renal cysts.
4. Moderate diffuse urinary bladder wall thickening.
WBC WNL
Cr WNL
UA +RBC/WBCs, negative nitrites
UCx pending
Afebrile, VSS
Recommendations:
- continue tamsulosin 0.4 mg to facilitate stone passage
- NSAIDs prn renal colic
- Plan for trial of passage if afebrile, no evidence of cUTI, or developing HALI
- OF NOTE - per Hospitalist and ED, patient is a POOR candidate for GETA and deemed high-risk
- Advise KUB in AM 09/17
D/w Hospitalist
[2025-09-16] MEDS: LOW STRENGTH ASPIRIN 81 MG PO (10:43)
[2025-09-16] MEDS: MIRALAX 17 GRAMS PO (10:43)
[2025-09-16] MEDS: LIPITOR 40 MG PO (10:43)
[2025-09-16] MEDS: FLOMAX 0.4 MG PO ×2 (10:43→19:30)
[2025-09-16 11:27] LABS: Venous Blood Gas B.E. 8.0 mmol/L (-4 to +4); Venous Blood Gas O2 Sat % 97.4 %
[2025-09-16 11:29] LABS: Venous Blood Gas O2 Therapy 10L
--- NOTE | 2025-09-16 11:36 | CON.PUL ---
Consultation
Consultation Request
Date/Time Consultation Requested: 09/16/2025 - 101
Date/Time Consultation Performed: 09/16/2025 - 1129
Requesting Provider: Dr. Sierra
Performing Provider: Dr. Tang
Reason for Consultation: Acute hypoxic respiratory failure
Medical History
-
Chief Complaint: Abdominal pain + nausea/vomiting
History of Present Illness:
84-year-old male with a past medical history of tobacco use, severe COPD, prostate cancer hyperlipidemia, chronic respiratory failure on home O2 at 2 L/min intermittently, biliary stone, history of UTI and DM type II who presents with right sided
flank pain with nausea/vomiting. Initially, he was afebrile to 97.6 �F, pulse rate 89, respiratory rate 24, BP 152/81 and saturating 88% on 2 L/min nasal cannula which improved to 92% with 3 L/min. Initial labs pertinent for normal WBC at 7.9, Hb
14.8, blood gas with acute on chronic hypercapnic respiratory failure with pH 7.33 and pCO2 70, urinalysis with plus for blood with 7�10 urine RBCs, +1 leukocyte esterase and 16�20 urine WBC. Urine culture collected. CT abdomen/pelvis obtained
showing a 3 mm obstructive stone at the right UVJ causing moderate acute hydroureteronephrosis; additional findings also showed a large 7.5 cm rim calcified right lower pole renal mass, moderately diffuse urinary bladder wall thickening, severe
biliary dilatation, moderate diverticulosis in the sigmoid colon and an acute superior endplate fracture of L1. In the ER he was given Decadron, 4 mg morphine, DuoNebs and Zofran. Morphine administration helped improve his tachycardia and severe
pain and then he was placed onto BiPAP 15/5 cmH2O and then admitted to IMU for further care with pulmonary service consulted for additional recommendations.
When I saw the patient, he was resting in bed, currently on 2 L/min nasal cannula, saturating 91% with heart rate 96 and BP 85/47. He was sleeping in no acute distress, and was easily arousable to voice but then would go back to sleep. He did not
appear to be in any pain. He also did not want to interact in the HPI or ROS, and mainly want to sleep.
PMHx: Severe COPD, tobacco use disorder, prostate cancer, hyperlipidemia, chronic respiratory failure on home O2 at 3 L/min with ambulation, chronic hypercapnic respiratory failure, history of sepsis, biliary stone, chronic HFpEF, hypertension,
history of UTI, DM type II, history of influenza A (01/02/2025)
PSHx: Cholecystectomy
Past Medical History
Past Medical History: Other (Above as per HPI)
Past Surgical History: Other (Above as per HPI)
Social History
Tobacco: Smoker (>02-bfdc-zcfs history)
Alcohol: None
Drug: None
Personal:
Family History
Family History: Reviewed & Not Pertinent
Allergies / Home Medications
Allergies
Allergy/AdvReac Type Severity Reaction Status Date / Time
No Known Allergies Allergy Verified 09/16/25 03:08
Home Medications
�Medication �Instructions �Recorded �Confirmed �Last Taken �Type
atorvastatin 40 mg tablet 40 mg PO DAILY High cholesterol 06/04/23 09/16/25 11/06/23 Rx
#30 tabs
diltiazem HCl 120 mg 120 mg PO DAILY Arrhythmia #30 caps 06/04/23 09/16/25 11/06/23 Rx
capsule,extended release 24 hr
albuterol sulfate 2.5 mg/3 mL 2.5 mg inhalation R Q6HPRN PRN 11/07/23 09/16/25 11/06/23 History
(0.083 %) solution for nebulization wheezing
budesonide 0.5 mg/2 mL suspension 0.5 mg inhalation R BID 05/13/24 09/16/25 Unknown History
for nebulization Lung/Breathing Issues
omeprazole 20 mg capsule,delayed 20 mg PO DAILY PRN 05/13/24 09/16/25 Unknown History
release Gastrointestinal Issue
tamsulosin 0.4 mg capsule 0.4 mg PO BID Urinary issue 05/13/24 09/16/25 Unknown History
gabapentin 100 mg capsule 100 mg PO TID Pain 07/13/25 09/16/25 Unknown History
prednisone 10 mg tablet 10 mg PO DAILY Anti-Inflammatory 07/13/25 09/16/25 Unknown History
Held on 09/14/25.
Instructions: Resume 10 mg
daily after you complete the
prednisone taper.
sodium chloride 0.65 % nasal spray 1 spray intranasal QIDPRN PRN dry 07/15/25 09/16/25 Unknown Rx
aerosol (Saline Nasal) nares #44 mL
acetaminophen 325 mg tablet 650 mg PO Q6H PRN pain 09/12/25 09/16/25 Unknown History
(Tylenol)
prednisone 10 mg tablet 10 mg PO DIRECTED #30 tabs 09/13/25 09/16/25 Unknown Rx
aspirin 81 mg chewable tablet 81 mg PO DAILY Blood Clot 09/16/25 09/16/25 Unknown History
Prevention/Tx
insulin glargine 100 unit/mL (3 5 unit SC HS Diabetes 09/16/25 09/16/25 Unknown History
mL) subcutaneous pen (Basaglar
KwikPen U-100 Insulin)
Review of Systems
-
Unable to Obtain full review of systems at this time due to: Acuity
Vitals / Labs / Diagnostic Testing
Vital Signs
Temp Pulse Resp BP Pulse Ox
97.5 F 105 22 106/65 93
09/16/25 10:29 09/16/25 10:24 09/16/25 10:24 09/16/25 09:00 09/16/25 10:24
Lab Data
09/16/25 03:23
09/16/25 03:23
Diagnostic Testing:
Physical Exam
-
HEENT: Normocephalic and Anicteric
Cardiovascular: S1/S2 and Peripheral Edema (n)
Respiratory: Wheeze (n), Rales (Coke with expiration bilaterally), Rhonchi (n) and Non-Labored Respirations
GI: Soft, Non Distended, Non Tender and Normal Bowel Sounds
Neurology: Tremors (n) and Other (Somnolent, although easily arousable to voice)
Skin: Warm and Dry
General: Respiratory Distress (n), Comfortable, Fever (n) and Chills (n)
Assessment
-
Assessment: 84-year-old male with a past medical history of tobacco use, severe COPD, prostate cancer hyperlipidemia, chronic respiratory failure on home O2 at 2 L/min intermittently, biliary stone, history of UTI and DM type II who presents with
right sided flank pain with nausea/vomiting. Initially, he was afebrile to 97.6 �F, pulse rate 89, respiratory rate 24, BP 152/81 and saturating 88% on 2 L/min nasal cannula which improved to 92% with 3 L/min. Initial labs pertinent for normal WBC
at 7.9, Hb 14.8, blood gas with acute on chronic hypercapnic respiratory failure with pH 7.33 and pCO2 70, urinalysis with plus for blood with 7�10 urine RBCs, +1 leukocyte esterase and 16�20 urine WBC. Urine culture collected. CT abdomen/pelvis
obtained showing a 3 mm obstructive stone at the right UVJ causing moderate acute hydroureteronephrosis; additional findings also showed a large 7.5 cm rim calcified right lower pole renal mass, moderately diffuse urinary bladder wall thickening,
severe biliary dilatation, moderate diverticulosis in the sigmoid colon and an acute superior endplate fracture of L1. In the ER he was given Decadron, 4 mg morphine, DuoNebs and Zofran. Morphine administration helped improve his tachycardia and
severe pain and then he was placed onto BiPAP 15/5 cmH2O and then admitted to IMU for further care with pulmonary service consulted for additional recommendations.
Chronic conditions [employer]: Severe COPD, tobacco use disorder, prostate cancer, hyperlipidemia, chronic respiratory failure on home O2 at 3 L/min with ambulation, chronic hypercapnic respiratory failure, history of sepsis, biliary stone, chronic HFpEF,
hypertension, history of UTI, DM type II, history of influenza A (01/02/2025)
Impression:
#Respiratory distress requiring BiPAP due to significant pain from kidney stone
#Acute on chronic hypoxic + hypercapnic respiratory failure
#Acute nephrolithiasis with 3 mm stone at right UVJ causing acute hydroureteronephrosis
#Abnormal urinalysis with +1 excite esterase and 16�20 urine WBC
#7.5 cm right renal mass � differential includes renal cell carcinoma versus complex renal cyst
#Acute superior endplate fracture of L1 with near complete vertebral body collapse
#Severe COPD not in an acute exacerbation (recently discharged from here at on 09/14/2025 with a prednisone taper to treat AECOPD)
#Atrial fibrillation
#DM type II
Plan:
- Believe that his significant shortness of breath and respiratory distress was pain related
- Urology consulted regarding the 3 mm obstructive calculus at the right ureterovesical junction with moderate acute hydroureteronephrosis
- Pain control using toradol as needed; also would start IVF to help flush out the stone and continue flomax - defer these recs officially to Urology
- Defer decision for antibiotics to hospitalist
- Patient was placed on the BiPAP 15/5 cmH2O and brought up to the IMU; when I saw the patient, he was able to be removed from BiPAP and is currently breathing comfortable now on 2 L/min nasal cannula, breathing comfortably and saturating 91-92%
- Continue with BiPAP 15/5cmH2O with sleep and as needed during the day; of note, he was recently hospitalized here from 09/11 - 09/14/2025, DC'd to home and is awaiting a BiPAP machine to be set up at home by [facility]
- Check blood gas tomorrow morning to assure pH + pCO2 remain stable
- Continue supplemental oxygen while titrating SpO2 88-95%
- Aspiration precautions
- As an outpatient, patient follows with Dr. Jesus and is on chronic Zithromax with DuoNebs q6hr and budesonide BID with chronic prednisone 10 mg daily
- Continue with budesonide and I will resume DuoNebs now. He was given Decadron 10 mg by the ER and continued on his prednisone taper that he was DC'd home on 09/14/2025 when he was sent home from here at . I agree to continue pre-existing
prednisone taper that he was discharged home on, with eventual reduction down to his baseline dose of 10mg daily
- He will need further workup for this large 7.5 cm right sided renal mass � this will either need biopsy vs nephrectomy (partial vs radical)
- Thankfully, there is no mesenteric, retroperitoneal or pelvic lymphadenopathy, and no peritoneal fluid seen, indicating low likelihood for a metastatic lesion- -> defer workup of this right-sided renal mass to Urology
- Incentive spirometer encouraged q1hr while awake
- Replete electrolytes with K>4, Mg>2
- Trend H/H and transfuse if needed to keep Hb>7g/dL; keep plt>20k, unless there is concern for bleeding then keep plt>50k
- Maintain euglycemia with goal BG >100 and <180
- DVT ppx
Code status: DNR/DNI
Pulmonary service will continue to follow along.
Data:
CT abdomen/pelvis 09/16/2025:
1. MODERATE ACUTE RIGHT HYDROURETERONEPHROSIS secondary to a 3 mm obstructing calculus at the right ureterovesical junction.
2. Large 7.5 cm rim-calcified right lower pole renal mass containing both cystic and solid components. Diagnostic possibilities are (1) RIGHT RENAL CELL CARCINOMA or (2) a complex right renal cyst.
3. Large left renal cysts.
4. Moderate diffuse urinary bladder wall thickening.
5. Severe biliary dilatation.
6. Previous cholecystectomy.
7. Moderate diverticulosis in the sigmoid colon.
8. Severe bilateral emphysema.
9. ACUTE SUPERIOR ENDPLATE FRACTURE of L1 with near complete vertebral body collapse.
Total time spent today was 81 minutes for this encounter. Time includes reviewing laboratory test/imaging results, reviewing pertinent medical records, obtaining and reviewing medical history, performing an appropriate exam, ordering medications,
tests and procedures. Time also includes documentation of this encounter, coordinating patient care and communicating with other healthcare professionals. Total time does not include separately billed tests performed on this date of service.
[2025-09-16] MEDS: CARDIZEM CD 120 MG PO (11:48)
--- NOTE | 2025-09-16 12:06 | W.PN.HOSP.TC ---
Today's Communication/Plan
-
Resume diet
Monitor for dysphagia
Resume insulin
Stop antibiotics
KUB later today
Assessment / Plan
Assessment / Plan
Gen-AAOx3, NAD
HEENT-NC, AT, anicteric, clear oral mm
Neck-supple
CV-reg, no M, +S1/S2
Lungs-clear B/L
Abd-soft, NT, ND
Ext-no edema
Musculoskeletal-no cyanosis, clubbing
Skin-warm and dry
Neuro-grossly non-focal
Psych-calm, cooperative
Symptomatic right sided nephrolithiasis -flank pain completely resolved. Patient believes he may have passed the stone.
Check KUB this afternoon. Discussed with urology.
Continue tamsulosin. No plans for surgical intervention.
Resume diet.
No indication for antibiotics. No signs or symptoms of sepsis.
Dysphagia -started yesterday. Patient unclear as to whether it is related to solids or liquids. Denies history of dysphagia.
Start soft diet and reassess. If symptoms persist then we will evaluate further.
COPD without exacerbation -recently hospitalized and discharged 09/14 for COPD exacerbation. Continue steroid taper.
Paroxysmal atrial fibrillation -not on chronic anticoagulation due to frequent falls. Continue Cardizem.
Essential hypertension -stable.
DM 2 with peripheral neuropathy -glucoses controlled.
Continue Lantus 5 units at bedtime, sliding scale insulin.
Hyperlipidemia -atorvastatin.
Chronic heart failure preserved EF -stable.
history of prostate cancer
DNR
Anticipated Discharge: Within 24 hours
Subjective/Interval History
-
Date of Service: September 16, 2025
Patient seen and examined, states flank pain has resolved. Complaining of dysphagia that started yesterday.
Objective Data
-
Labs:
Laboratory Results
09/16/25
03:23
WBC 7.9
Hgb 14.8
Hct 49.2
Plt Count 143
Sodium 137
Potassium 4.4
Chloride 98
Carbon Dioxide 38 H
BUN 27 H
Creatinine 0.7
Glucose 111 H
Calcium 9.3
Total Bilirubin 0.8
AST 17
ALT 21
Alkaline Phosphatase 109
Vital Signs:
Vital Signs
Temp Pulse Resp BP Pulse Ox
97.5 F 103 22 105/69 94
09/16/25 10:29 09/16/25 11:48 09/16/25 10:24 09/16/25 11:48 09/16/25 11:44
I&O
09/15/25 09/16/25 09/17/25
06:59 06:59 06:59
Intake Total 360 / 360
Balance 360 / 360
Review of Systems
-
History Source: Patient
All other systems: Reviewed and negative
[2025-09-16 12:31] LABS: Glucose - Point of Care 271 mg/dl (70-99)
--- NOTE | 2025-09-16 12:43 | PTCARENOTE ---
PCT took patient to XRAY.
[2025-09-16] MEDS: NOVOLOG FLEXPEN-LOW RESISTANCE 3 UNITS SC (12:53)
[2025-09-16] MEDS: TORADOL 10 MG IV (14:44)
[2025-09-16] MEDS: NOVOLOG FLEXPEN-LOW RESISTANCE 2 UNITS SC (16:52)
[2025-09-16 17:04] LABS: Glucose - Point of Care 232 mg/dl (70-99)
[2025-09-16 22:02] LABS: Glucose - Point of Care 241 mg/dl (70-99)
[2025-09-16] MEDS: LANTUS 0.05 UNITS SC (22:18)
[2025-09-16] MEDS: DILAUDID 0.25 MG IV (23:52)
[2025-09-17] VITALS (25 sets, daily range): BP systolic 63–174; BP diastolic 47–92; PULSE 2–115; BMI 20.6
[2025-09-17] MEDS: OFIRMEV 100 IV (00:22)
--- NOTE | 2025-09-17 00:28 | PTCARENOTE ---
Assumed care for patient overnight. Pt AAOx3, very drowsy. NSR w/ PACs on the monitor. Received pt on 3L NC. RT bedside to place on BiPAP mask. Pt had episode of severe pain to b/l legs, PRN Dilaudid administered, see DEC. Pt had rigors and HR
increased to 140s. Rectal temp of 101.9. CHANNEL ACCOUNT MANAGER Hephziba made aware, new orders for Offirmev. Bladder scanned pt 160ml. Male purewick intact. Call rose is within reach. Bed alarm is on.
--- NOTE | 2025-09-17 02:30 | W.PN.UPDATE ---
Update Note
Progress Note Update
At [place] Temp of 101.9 HR 140's + rigors.
Tylenol IV given once.
0230 Temp of 100.9 HR 110's-120's BP 85/47
Patient seen and evaluated, resting in bed with Bipap.
arousable, Oriented no rigors asymptomatic, denies any pain at present, states 'he feels all good'. Denies dizziness, lightheaded, Denies chest pain or shortness of breath.
HR RR tachy, Lungs with faint wheezes at the bases. + BS 4 quadrant
output 100 ml, Bladder scan 160ml
fluids, labs now
0330 BP 60's-70's/40's, patient continuous to be asymptomatic
Levophed infusion started
lab results noted, Dr Majano made aware
Advised NPO, fluids and antibiotic at present
will order Covid Flu blood cultures r/o
IV Cefepime x1
Left [place] text message to hematology nurse educator per Dr. Majano's request.
[2025-09-17] MEDS: NSS 250 IV (02:41)
[2025-09-17 03:01] LABS: Hematocrit 44.0 % (39.0-52.0); Hemoglobin 13.5 g/dL (13.0-18.0); Mean Corp Hgb Conc. 30.7 g/dL (33.0-37.0); Mean Corpuscular Volume 93.0 fL (80.0-94.0); Platelet Count 65 10^3/uL (130-400); Red Cell Dist. Width 13.5 % (11.5-14.5)
[2025-09-17 03:11] LABS: Blood Urea Nitrogen 57 mg/dl (9-20); Calcium 8.5 mg/dl (8.4-10.2); Carbon Dioxide 35 mmol/L (22-30); Chloride 96 mmol/L (98-107); Estimated Creatinine Clearance 32 ml/min; Glucose 99 mg/dl (70-99); Magnesium 1.5 mg/dl (1.6-2.3); Potassium 4.7 mmol/L (3.5-5.1); Sodium 132 mmol/L (135-145); eGFR 45.34
[2025-09-17] MEDS: LEVOPHED 250 IV ×2 (03:32→10:06)
[2025-09-17] MEDS: MAGNESIUM SULFATE 102 GRAMS IV (04:28)
[2025-09-17] MEDS: NSS 1000 IV ×3 (05:02→19:52)
[2025-09-17] MEDS: MAXIPIME 2000 MG IV ×2 (05:03→17:25)
[2025-09-17] MEDS: STERILE WATER FOR INJECTION 10 ML IV ×2 (05:03→17:25)
[2025-09-17 05:37] LABS: COVID-19 Antigen Negative (Negative)
[2025-09-17 07:01] LABS: Glucose - Point of Care 118 mg/dl (70-99)
--- NOTE | 2025-09-17 07:06 | W.PN.URO.CBU ---
Today's Communication / Plan
-
CT imaging/report reviewed
Continue IV abx + vasopressor support
To OR emergently for cystoscopy + right stent
Surgical consent at OR desk
D/w patient.
D/w ICU team.
D/w Anthesiologist.
Assessment / Plan
-
Urosepsis (new)
HALI (new)
Obstructing right UVJ stone w/ moderate right hydroureteronephrosis
Patient has remained asymptomatic w/ regards to renal colic since admission.
WBC remains WNL.
Cr rise noted from 0.7 to 1.5 in 24 hrs.
UA suspicious - UCx/BCxs pending
Due to new fevers o/n, hypotension requiring vasopressor support => emergent surgical intervention advised for progressing urosepsis.
OF NOTE - patient is deemed high risk for general anesthesia due to acute exacerbation of COPD.
From anesthesia perspective, he is aware of risks or prolonged intubation post-op, ventilator-dependent respiratory failure, CA, CVA, and .
Diagnosis
-
Date of Service: September 17, 2025
-
Patient Diagnosis:
Urosepsis (new)
HALI (new)
Obstructing right UVJ stone w/ moderate right hydroureteronephrosis
Subjective
-
On BiPAP since admission for COPD exacerbation.
New fevers early this AM.
Hypotension noted - Levophed started.
NPO since ~09/16.
Objective
-
Vital Signs
Temp Pulse Resp BP Pulse Ox
100.9 F H 112 21 83/51 94
09/17/25 03:07 09/17/25 06:06 09/17/25 06:06 09/17/25 06:06 09/17/25 06:06
Intake and Output
09/16/25 09/17/25 09/18/25
06:59 06:59 06:59
Intake Total 540 / 540
Balance 540 / 540
Intake:
Oral fluids 540 / 540
Laboratory Results
09/17/25 02:42
09/17/25 02:42
Physical Exam
-
General - well developed, well nourished
Chest - BiPAP
Abdomen - soft, non-tender
Genitalia - normal
Skin - warm & dry with no rash
Neuro - AOx3, no motor deficits
Extremities - no clubbing, no cyanosis, no edema
Care Review
Data Reviewed
Discussed with: Hospitalist and Nursing
CT Scan: Report Pers Reviewed and Image Pers Reviewed
Total Time Spent with Patient (in minutes): 55
[2025-09-17] MEDS: DUONEB INH (07:37)
[2025-09-17] MEDS: PULMICORT INH (07:37)
--- NOTE | 2025-09-17 08:08 | W.IMMPOSTOP ---
Surgical Immed Post Op Note
-
Primary Surgeon: Gretel
Pre-op Diagnosis: Urosepsis, HALI, obstructing right UVJ stone
Post-op Diagnosis: Same
Procedure Performed: cystoscopy + right stent placement
Anesthesia Type: MAC + intraurethral lidocaine jelly
Specimen / Cultures: None/None
Estimated Blood Loss: Negligible
Drrains:
1. 6Fr x24 cm JJ Contour Soft right stent
2. 18Fr Robles catheter
Complications: None
Operative Findings:
1. Significant pyocystis on cystoscopy - irrigated clear.
2. Brisk efflux of malodorous purulent urine from right UO after guidewire decompression.
[2025-09-17 08:44] LABS: Glucose - Point of Care 157 mg/dl (70-99)
[2025-09-17] MEDS: NORMOSOL-R/PLASMALYTE-A 500 IV (08:49)
[2025-09-17] MEDS: SOLU-CORTEF 50 MG IV (10:06)
[2025-09-17] MEDS: NOVOLOG FLEXPEN-LOW RESISTANCE SC (10:27)
[2025-09-17] MEDS: LOW STRENGTH ASPIRIN 81 MG PO (10:28)
[2025-09-17] MEDS: LIPITOR 40 MG PO (10:28)
--- NOTE | 2025-09-17 10:34 | PTCARENOTE ---
Rec'd patient from PACU around 0915. Patient alert and oriented. MAEx4. ST, 100's. Norepinephrine infusing for MAP >65. Left radial kolby zeroed and transduced; correlating with bp cuff. Pulse ox 92-94% on 3L nc. Pursed lip breathing. Very LARA. Lung
sounds coarse with bibasilar crackles. Moist, non-productive cough. +BS. Patient only able to tolerate eating half of breakfast before becoming SOB and anxious. Encouraged to take small breaks between bites. Robles in place; flaco output. Patient
admits to multiple falls at home. Skin tears and bruising scattered throughout body. Fall precautions reinforced. Bed alarm on and functioning. Call rose within reach.
[2025-09-17 10:38] LABS: Glucose - Point of Care 147 mg/dl (70-99)
--- NOTE | 2025-09-17 11:07 | PTCARENOTE ---
Patient drowsy. Pulse ox 86-87%. RT at bedside to place on bipap.
[2025-09-17] MEDS: DUONEB 3 ML INH ×3 (11:08→19:43)
[2025-09-17] MEDS: CARDIZEM CD PO (11:37)
--- NOTE | 2025-09-17 11:47 | W.PN.HOSP.TC ---
Today's Communication/Plan
-
Continue antibiotics
Await cultures
Wean pressors as able
Resume diet
Assessment / Plan
Assessment / Plan
Gen-AAOx3, NAD
HEENT-NC, AT, anicteric, clear oral mm
Neck-supple
CV-reg, no M, +S1/S2
Lungs-clear B/L
Abd-soft, NT, ND
Ext-no edema
Musculoskeletal-no cyanosis, clubbing
Skin-warm and dry
Neuro-grossly non-focal
Psych-calm, cooperative
Septic shock -sepsis complicated by HALI, obstructive uropathy. Onset of sepsis evening of 09/16. Lactic acidosis due to sepsis, improved.
Etiology of sepsis likely due to nephrolithiasis, acute right sided pyelonephritis.
Now requiring vasopressors, Levophed. Currently hemodynamically improved and stable in the ICU.
Urine culture from admission shows greater than 100,000 gram-negative bacilli. Blood cultures pending.
Continue IV cefepime.
Stress dose steroids ordered.
HALI/obstructive uropathy -presentation with acute right hydro utero nephrosis, due to 3 mm obstructing calculus at the right UV junction.
Underwent cystoscopy, right ureteral stone manipulation, right ureteral stent insertion 09/17.
Avoid NSAIDs.
Acute thrombocytopenia -65k. Likely due to sepsis. Monitor for now.
Hyponatremia -132. Monitor for now.
Hypomagnesemia -1.5. Received 1 g of IV magnesium early this morning.
Dysphagia -started 09/15 according to patient. Tolerated diet yesterday, will resume.
COPD without exacerbation -recently hospitalized and discharged 09/14 for COPD exacerbation. Continue steroid taper.
Paroxysmal atrial fibrillation -not on chronic anticoagulation due to frequent falls. Continue Cardizem.
Essential hypertension -stable.
DM 2 with peripheral neuropathy -glucoses controlled.
Hold Lantus for HALI. Use sliding scale insulin.
Hyperlipidemia -atorvastatin.
Chronic heart failure preserved EF -stable.
history of prostate cancer
DNR
Anticipated Discharge: > 48 hours
Subjective/Interval History
-
Date of Service: September 17, 2025
Patient seen and examined. Feeling much better, no complaints. Denies flank pain.
Objective Data
-
Labs:
Laboratory Results
09/17/25 09/17/25
02:42 11:31
WBC 9.4
Hgb 13.5
Hct 44.0
Plt Count 65 L D
HCO3 Pending
Sodium 132 L
Potassium 4.7
Chloride 96 L
Carbon Dioxide 35 H
BUN 57 H
Creatinine 1.5 H
Glucose 99
Calcium 8.5
Vital Signs:
Vital Signs
Temp Pulse Resp BP Pulse Ox
98.4 F 102 17 113/72 95
09/17/25 09:30 09/17/25 11:09 09/17/25 11:09 09/17/25 09:45 09/17/25 11:18
I&O
09/16/25 09/17/25 09/18/25
06:59 06:59 06:59
Intake Total 540 / 540 412.5 / 412.5
Output Total 35 / 35
Balance 540 / 540 377.5 / 377.5
Review of Systems
-
History Source: Patient
All other systems: Reviewed and negative
[2025-09-17 12:03] LABS: B.E. 0.9 mmol/L; HCO3 27.5 mmol/L (21-28); O2 Saturation % 97.3 % (94-98); PCO2 51 mmHg (35-48); PO2 73 mmHg (83-108)
[2025-09-17] MEDS: NSS (PRESERVATIVE FREE) 10 ML IV (12:08)
[2025-09-17] MEDS: DELTASONE 30 MG PO (12:08)
[2025-09-17] MEDS: PROTONIX IV 40 MG IV (12:09)
--- NOTE | 2025-09-17 12:15 | W.PN.INTV ---
Today's Communication / Plan
Recommendations
Doing well s/p cystoscopy with stent decompression and R ureteral stent placement this morning
Continue norepinephrine for BP support for now
Respiratory support with BiPAP while sleeping, NC while awake, weaning as tolerated
Continue antibiotics, pain control, antiemetics
Assessment
-
Assessment: Patient is an 84-year-old male with PMH of severe COPD, paroxysmal A-fib, and type 2 diabetes who is in the ICU for acute on chronic hypercapnic hypoxemic respiratory failure and urosepsis. Patient presented with R flank pain, nausea,
and vomiting. On presentation, patient was hypoxic and in respiratory distress with a subsequent VBG suggestive of chronic CO2 retention consistent with severe COPD. Patient has since required BiPAP while sleeping and O2 via NC while awake. CTAP
revealed a 3 mm R UVJ stone with moderate hydroureteronephrosis. Overnight 09/16-09/17, patient became tachycardic, hypotensive, and febrile, which necessitated emergent cystoscopy with R UVJ stone decompression and R ureteral stent. Pyonephrosis
was noted intraoperatively. Blood pressure support with norepinephrine drip ongoing at 10 mcg/min, which is slightly reduced from 14 immediately after cystoscopy. IV fluids ongoing with NS 100 mL/h.
Plan:
#Urosepsis
#Ureterolithiasis
#Right renal mass
S/p cystoscopy with stone decompression and R ureteral stent placement this morning
Vasopressors: Norepinephrine gtt. 10 mcg/min
Antibiotics: Cefepime 2 g IV q12h
Pain control, antiemetics as needed
Monitor clinical status on pressor
#Acute on chronic hypoxic hypercapnic respiratory failure
BiPAP, supplemental oxygen as needed with weaning as tolerated
DuoNebs, budesonide scheduled
Prednisone taper from prior admission ongoing, continue until chronic dose of 10 mg
Repeat blood gas
Patient normally on 2 L at home, awaiting BiPAP device
Monitor clinical status on BiPAP while sleeping, NC while awake
#Atrial fibrillation
Restart diltiazem tomorrow morning
Not on chronic anticoagulation due to frequent falls
#Type 2 diabetes
Low corrective SSI, per primary team
GI PPx: Pantoprazole
DVT PPx: SCDs
Subjective Dataa
Subjective Data
Date of Service:
Date of Service: September 17, 2025
Subjective:
Patient seen at the bedside on hospital day #2. Patient underwent cystoscopy with decompression of 3 mm stone at R UVJ with R ureteral stent placement this morning. Patient states he is feeling well. No current complaints, including shortness of
breath, abdominal pain, or back pain. Vitals well at bedside were HR 107, BP 113/72, RR 16, SpO2 92% on 3 L.
Review of Systems
General: Other (Denies pain)
Cardiopulmonary: Other (Denies shortness of breath, chest pain)
GI: Other (Denies abdominal pain)
Neuro: Other (Denies headache)
Objective Data
Data Reviewed
Vital Signs / I&O / Oxygen:
Vital Signs
Temp Pulse Resp BP Pulse Ox
98.4 F 105 23 118/92 93
09/17/25 12:00 09/17/25 12:00 09/17/25 12:00 09/17/25 12:00 09/17/25 12:00
Intake and Output
09/16/25 09/17/25 09/18/25
06:59 06:59 06:59
Intake Total 540 / 540 790.0 / 790.0
Output Total 35 / 35
Balance 540 / 540 755.0 / 755.0
SaO2 93
Nasal Cannula flow liters per 4
minute
Physical Exam
General: Other (No apparent distress; no pain)
HEENT: Normocephalic
Cardiovascular: S1-S2, Regular Rhythm and Other (No M/R/G; extremities warm; pulses 2+)
Respiratory: Clear, Non-Labored Respirations and Other (No wheezes, crackles, or rhonchi)
GI: Soft, Non Distended, Non Tender and Other (No CVA tenderness)
Neurology: Awake, Alert, Oriented and No Motor Deficits
Labs/Micro/Reports
Lab Data
09/17/25 02:42
09/17/25 02:42
Laboratory Results
09/17/25
11:53
pH 7.34 L
pCO2 51 H
pO2 73 L
HCO3 27.5
O2 Delivery Level
Microbiology
09/16/25 05:59 Urine Urine Culture - Preliminary
Gram negative bacilli
09/17/25 04:46 Nasal Swab Influenza Types A & B ([facility]) - Final
Negative for Influenza A & B, NAAT
Negative results must be combined with clinical observations
and patient history.
Nucleic Acid Amplification test (NAAT)performed on the
[employer] platform.
--- NOTE | 2025-09-17 13:08 | PTCARENOTE ---
Patient resting comfortably. Weaned off bipap to 3L nc. Breathing nonlabored. NSR, 90's. BP borderline. Discussed with Food Court Team Member, plan to initiate Vaso if unable to wean Norepi. No other changes.
--- NOTE | 2025-09-17 14:07 | CM ---
Addendum entered by Elina Hendrix 09/17/25 15:26:
[facility] accepted and will have a bed. This is patient's first choice. Now will wait until patient is ready medically.
Original Note:
F/U: Patient asked for Case Management. Patient wants SNF, said he has an [facility] for 16 hours, but at night he has been falling, has fall 3x. Patient is estranged from his son, but the son has taken our phone calls. Patient did not have another SNF
option so this is the order: [facility], [facility]. RACHEL Antoine sent message to Maura for V. PLAN: SNF when ready, will need insurance auth.
[2025-09-17] MEDS: NOVOLOG FLEXPEN-LOW RESISTANCE 1 UNITS SC (14:09)
[2025-09-17 14:21] LABS: Glucose - Point of Care 182 mg/dl (70-99)
--- NOTE | 2025-09-17 15:11 | VATNOTE ---
PICC order noted. Levophed last documented as being titrated down around 0900; patient also febrile with pending blood cultures. However, Boiler Service Technician states second pressor was added and patient requires 'more solid IV access'. VAT to place.
[2025-09-17] MEDS: PITRESSIN 100 IV (15:18)
--- NOTE | 2025-09-17 15:21 | PTCARENOTE ---
Vasopressin added in addition to Norepinephrine. Order for PICC placed.
[2025-09-17] MEDS: NOVOLOG FLEXPEN-LOW RESISTANCE 2 UNITS SC (17:38)
[2025-09-17 17:50] LABS: Glucose - Point of Care 245 mg/dl (70-99)
[2025-09-17] MEDS: PULMICORT 0.5 MG INH (19:43)
[2025-09-17 21:14] LABS: Glucose - Point of Care 230 mg/dl (70-99)
[2025-09-17] MEDS: NOVOLOG FLEXPEN 2 UNITS SC ×2 (21:17→23:25)
[2025-09-17] MEDS: LANTUS 0.05 UNITS SC (21:17)
--- NOTE | 2025-09-17 21:24 | PTCARENOTE ---
Assumed care of patient at 1899. Patient AAOx2-3 - patient disoriented to year @ times/forgetful. Patient asked this RN who the two men were watching TV in the corner of the room earlier in day. Patient also stated he received no visitors throughout
day - INVENTORY WORKER aware of possible hallucinations/mild confusion. Bed alarm in place and patient ringing appropriately at this time. Patient SR on monitor. Complains of dizziness @ times w/ changes in position. Trace edema to bilateral upper extremities.
L radial A line. Patient on 3L NC satting 93-98%, patient on 2-3L baseline @ home. Lungs diminished and coarse throughout bilaterally with crackles in the bases bilaterally. Moist occasional nonproductive cough. Tachypneic @ times w/ pursed lip
breathing. Patient w/ Robles draining adequate amount of flaco/bloody tinged urine. Patient w/ scattered skin tears/bruises throughout - see worklist. Stage 1 on sacrum - sacral foam placed. RUE double lumen PICC w/ Levo and IVF running as ordered -
see MAR/Worklist. Vaso off at 1901.
[2025-09-17 23:22] LABS: Glucose - Point of Care 198 mg/dl (70-99)
[2025-09-18] VITALS (22 sets, daily range): BP systolic 90–164; BP diastolic 67–134; PULSE 2–83; BMI 22.0
--- NOTE | 2025-09-18 00:38 | PTCARENOTE ---
Systems reviewed. Levo weaned to off - see worklist.
[2025-09-18 01:16] LABS: Glucose - Point of Care 184 mg/dl (70-99)
[2025-09-18] MEDS: STERILE WATER FOR INJECTION 10 ML IV ×2 (05:29→17:03)
[2025-09-18] MEDS: MAXIPIME 2000 MG IV ×2 (05:29→17:03)
[2025-09-18] MEDS: NSS 1000 IV ×2 (05:30→16:38)
[2025-09-18 05:44] LABS: Blood Urea Nitrogen 48 mg/dl (9-20); Calcium 7.8 mg/dl (8.4-10.2); Carbon Dioxide 30 mmol/L (22-30); Chloride 102 mmol/L (98-107); Estimated Creatinine Clearance 65 ml/min; Glucose 149 mg/dl (70-99); Magnesium 1.9 mg/dl (1.6-2.3); Potassium 4.3 mmol/L (3.5-5.1); Sodium 131 mmol/L (135-145); eGFR > 60.00
[2025-09-18 06:02] LABS: Hematocrit 38.7 % (39.0-52.0); Hemoglobin 12.1 g/dL (13.0-18.0); Mean Corp Hgb Conc. 31.3 g/dL (33.0-37.0); Mean Corpuscular Volume 90.8 fL (80.0-94.0); Platelet Count 57 10^3/uL (130-400); Red Cell Dist. Width 13.9 % (11.5-14.5)
[2025-09-18] MEDS: MAGNESIUM SULFATE 102 GRAMS IV (06:30)
--- NOTE | 2025-09-18 06:36 | PTCARENOTE ---
Systems reviewed. Assessment unchanged. Patient tolerated Bipap until around 0300 this AM.
[2025-09-18 06:55] LABS: Nucleated Red Blood Cells % 0 % (-)
--- NOTE | 2025-09-18 06:56 | W.PN.URO.CBU ---
Today's Communication / Plan
-
continue supportive medical care
Assessment / Plan
-
Urosepsis (new)
HALI (new)
Obstructing right UVJ stone w/ moderate right hydroureteronephrosis- s/p right ureteral stent
pt improved
cx's + for gram neg rods
continue laguna/stent and flomax
Diagnosis
-
Date of Service: September 18, 2025
-
Patient Diagnosis:
Urosepsis (new)
HALI (new)
Obstructing right UVJ stone w/ moderate right hydroureteronephrosis
s/p right ureteral stent 09/17
Subjective
-
pt feels better
off pressors
urine clear via laguna
urine and blood cx's + FOR GRAM NEG RODS
Objective
-
Vital Signs
Temp Pulse Resp BP Pulse Ox
97.3 F 88 18 119/73 97
09/17/25 23:17 09/18/25 06:30 09/18/25 06:30 09/18/25 00:00 09/18/25 06:30
Intake and Output
09/16/25 09/17/25 09/18/25
06:59 06:59 06:59
Intake Total 540 / 540 3382.4 / 3382.4
Output Total 1205 / 1205
Balance 540 / 540 2177.4 / 2177.4
Intake:
Oral fluids 540 / 540 600 / 600
IV fluids (Total) 2682.4 / 2682.4
Norepi 446.4 / 446.4
Nss 1,000 ml @ 100 mls/hr IV . 2099 / 2100
Q10H JORGE Rx#:[id number]
Vaso 36 / 36
normosol 100 / 100
IV piggybacks 100 / 100
Output:
Urine, Laguna 1205 / 1205
Laboratory Results
09/18/25 05:07
09/18/25 05:07
Review of Systems
-
Constitutional: Fatigue
Respiratory: No Symptoms
Cardiac: No Symptoms
Abdomen/GI: No Symptoms
Physical Exam
-
General - no acute distress
Abdomen - soft, non-tender
Genitalia - laguna in place
--- NOTE | 2025-09-18 07:13 | W.PN.HOSP.TC ---
Today's Communication/Plan
-
Continue antibiotics
Await cultures
Speech consult
PT/OT
Assessment / Plan
Assessment / Plan
Gen-AAOx3, NAD
HEENT-NC, AT, anicteric, clear oral mm
Neck-supple
CV-reg, no M, +S1/S2
Lungs-clear B/L
Abd-soft, NT, ND
Ext-no edema
Musculoskeletal-no cyanosis, clubbing
Skin-warm and dry
Neuro-grossly non-focal
Psych-calm, cooperative
E. coli septic shock -sepsis complicated by HALI, obstructive uropathy. Onset of sepsis evening of 09/16. Lactic acidosis due to sepsis, improved.
Etiology of sepsis likely due to nephrolithiasis, acute right sided pyelonephritis.
Septic shock resolved. Off pressors. Hemodynamically improved. Fever resolved. Leukocytosis noted.
Urine and blood cultures noted. Speciation and sensitivity pending.
Continue IV cefepime.
No need for further stress dose steroids.
HALI/obstructive uropathy -presentation with acute right hydro utero nephrosis, due to 3 mm obstructing calculus at the right UV junction.
Underwent cystoscopy, right ureteral stone manipulation, right ureteral stent insertion 09/17.
Avoid NSAIDs.
HALI improved.
Robles catheter per urology.
Acute thrombocytopenia -57k. Likely due to sepsis. Monitor for now.
Hyponatremia -131. Hyponatremia appears fairly chronic, at least since July. Monitor for now.
Hypomagnesemia - improved.
Dysphagia -so far appears to be tolerating diet but will consult speech therapy.
COPD without exacerbation -recently hospitalized and discharged 09/14 for COPD exacerbation. Continue steroid taper.
Paroxysmal atrial fibrillation -not on chronic anticoagulation due to frequent falls. Continue Cardizem.
Essential hypertension -stable.
DM 2 with peripheral neuropathy -glucose 149 this morning. Over 200 yesterday afternoon.
Continue Lantus 5 units at bedtime, NovoLog low resistance sliding scale.
Hyperlipidemia -atorvastatin.
Chronic heart failure preserved EF -stable.
history of prostate cancer
DNR
PT/OT
Anticipated Discharge: > 48 hours
Subjective/Interval History
-
Date of Service: September 18, 2025
Patient seen and examined. Denies back pain. Complaining of pain from previous catheter in the right hand.
Objective Data
-
Labs:
Laboratory Results
09/18/25
05:07
WBC 27.4 H
Hgb 12.1 L
Hct 38.7 L
Plt Count 57 L
Sodium 131 L
Potassium 4.3
Chloride 102
Carbon Dioxide 30
BUN 48 H
Creatinine 0.8
Glucose 149 H
Calcium 7.8 L
Vital Signs:
Vital Signs
Temp Pulse Resp BP Pulse Ox
97.3 F 88 18 119/73 97
09/17/25 23:17 09/18/25 06:30 09/18/25 06:30 09/18/25 00:00 09/18/25 06:30
I&O
09/17/25 09/18/25 09/19/25
06:59 06:59 06:59
Intake Total 540 / 540 3382.4 / 3382.4
Output Total 1205 / 1205
Balance 540 / 540 2177.4 / 2177.4
Review of Systems
-
History Source: Patient
All other systems: Reviewed and negative
[2025-09-18] MEDS: DUONEB 3 ML INH ×4 (07:35→20:26)
[2025-09-18] MEDS: PULMICORT 0.5 MG INH ×2 (07:35→20:26)
[2025-09-18 07:44] LABS: Glucose - Point of Care 134 mg/dl (70-99)
[2025-09-18] MEDS: NOVOLOG FLEXPEN-LOW RESISTANCE SC ×2 (07:50→12:12)
[2025-09-18] MEDS: NSS (PRESERVATIVE FREE) 10 ML IV (08:04)
[2025-09-18] MEDS: LIPITOR 40 MG PO (08:05)
[2025-09-18] MEDS: PROTONIX IV 40 MG IV (08:05)
[2025-09-18] MEDS: CARDIZEM CD 120 MG PO (08:05)
[2025-09-18] MEDS: LOW STRENGTH ASPIRIN 81 MG PO (08:05)
[2025-09-18] MEDS: DELTASONE 30 MG PO (08:06)
--- NOTE | 2025-09-18 08:18 | W.PN.INTV ---
Today's Communication / Plan
Recommendations
Antibiotics with cefepime
Bacteremia noted on blood cultures collected yesterday with E. coli - obtain surveillance blood culture set today
There was multidrug resistance seen on urine culture from admission
Patient is improving despite his rising WBC; trend WBC, monitor temperature curve, and if he has any clinical deterioration then would broaden antibiotics further with ID consult
Continue BiPAP with sleep; BiPAP is going to be arranged for the patient following discharge (see my assessment for details in addition to case management correspondence)
Continue supplemental O2 during the day while titrating to SpO2 88-95%
Outpatient workup of his right-sided renal mass
Hold Cardizem CD and start short acting Cardizem given his transient hypotension today after getting his morning Cardizem CD dose
IVF for today, then would stop as he is eating/tolerating PO diet
Patient is stable for downgrade out of ICU to telemetry. Given that his respiratory distress has normalized and is on minimal supplemental oxygen, Pediatric Occupational Therapist/Pulmonary service will now sign off. Patient has an upcoming appointment with our office
on 11/03/2025, at 2:[address] Jesus.
No additional recommendations at this time. Please reconsult if there are any additional questions/concerns, or if patient's respiratory status deteriorates.
Assessment
-
Assessment: 84-year-old male with a past medical history of tobacco use, severe COPD, prostate cancer hyperlipidemia, chronic respiratory failure on home O2 at 2 L/min intermittently, biliary stone, history of UTI and DM type II who presents with
right sided flank pain with nausea/vomiting. Initially, he was afebrile to 97.6 �F, pulse rate 89, respiratory rate 24, BP 152/81 and saturating 88% on 2 L/min nasal cannula which improved to 92% with 3 L/min. Initial labs pertinent for normal WBC
at 7.9, Hb 14.8, blood gas with acute on chronic hypercapnic respiratory failure with pH 7.33 and pCO2 70, urinalysis with plus for blood with 7�10 urine RBCs, +1 leukocyte esterase and 16�20 urine WBC. Urine culture collected. CT abdomen/pelvis
obtained showing a 3 mm obstructive stone at the right UVJ causing moderate acute hydroureteronephrosis; additional findings also showed a large 7.5 cm rim calcified right lower pole renal mass, moderately diffuse urinary bladder wall thickening,
severe biliary dilatation, moderate diverticulosis in the sigmoid colon and an acute superior endplate fracture of L1. In the ER he was given Decadron, 4 mg morphine, DuoNebs and Zofran. Morphine administration helped improve his tachycardia and
severe pain and then he was placed onto BiPAP 15/5 cmH2O and then admitted to IMU for further care with pulmonary service consulted for additional recommendations.
Chronic conditions CLINICAL BUSINESS ANALYST: Severe COPD, tobacco use disorder, prostate cancer, hyperlipidemia, chronic respiratory failure on home O2 at 3 L/min with ambulation, chronic hypercapnic respiratory failure, history of sepsis, biliary stone, chronic HFpEF,
hypertension, history of UTI, DM type II, history of influenza A (01/02/2025)
Impression:
#Respiratory distress requiring BiPAP due to significant pain from kidney stone - -> respiratory distress markedly improved and now off BiPAP
#Acute on chronic hypoxic + hypercapnic respiratory failure
#Septic shock in the setting of stone related sepsis with complicated UTI - shock state resolved as of 09/17
#GNR bacteremia due to E. coli UTI
#Acute nephrolithiasis with 3 mm stone at right UVJ causing acute hydroureteronephrosis s/p cystoscopy with right ureteral stone ambulation and ureteral stent insertion (POD #1)
#Abnormal urinalysis with +1 excite esterase and 16�20 urine WBC
#7.5 cm right renal mass � differential includes renal cell carcinoma vs complex renal cyst
#Acute superior endplate fracture of L1 with near complete vertebral body collapse
#Severe COPD not in an acute exacerbation (recently discharged from here at on 09/14/2025 with a prednisone taper to treat AECOPD)
#Atrial fibrillation
#DM type II
Plan:
- Postoperative management as per urology
- Pain control
- Patient's urine culture grew multidrug-resistant E. coli; patient's blood culture (2 out of 4 bottles) from 09/17 is also growing E coli (sensitivities pending)
- Patient remains on cefepime; okay to continue with cefepime however given the patient's sudden rise in white blood cell count, if he spikes another fever, has sudden tachycardia, rigors or becomes hypotensive, then would broaden antibiotics
further to meropenem
- Follow up blood culture sensitivities from 09/17; re-check a surveillance blood culture set today
- Consider ID consult
- Patient has markedly improved hemodynamically, and has been off of all vasopressors since last night (09/17)
- Cardizem CD has been restarted however I will khalil to short acting as his SBP decreased from the 140�160s down to the 100s today (09/18)
- I will change cardizem CD to Cardizem 30 mg PO QID with holding parameters
- Would stop IVF today; monitor for signs of volume overload in which case the fluid should be stopped immediately
- Believe that his prior shortness of breath/respiratory distress was pain related in setting of sepsis- -> his dyspnea is now completely resolved, and he is breathing comfortably on minimal O2
- Continue with BiPAP 15/5cmH2O with sleep and as needed during the day; of note, he was recently hospitalized here from 09/11 - 09/14/2025, DC'd to home and is awaiting a BiPAP machine to be set up at home by [facility]
- Serial blood gas measurements to assure pH + pCO2 remains stable
- Continue supplemental oxygen while titrating to keep SpO2 88-95%
- Aspiration precautions
- As an outpatient, patient follows with Dr. Jesus and is on chronic Zithromax with DuoNebs q6hr and budesonide BID with chronic prednisone 10 mg daily
- Continue with budesonide and DuoNebs. He was given Decadron 10 mg by the ER and continued on his prednisone taper that he was DC'd home on 09/14/2025 when he was sent home from here at . I agree to continue pre-existing prednisone taper that
he was discharged home on, with eventual reduction down to his baseline dose of 10mg daily
- He will need further workup for this large 7.5 cm right sided renal mass � this will either need biopsy vs nephrectomy (partial vs radical)
- Thankfully, there is no mesenteric, retroperitoneal or pelvic lymphadenopathy, and no peritoneal fluid seen, indicating low likelihood for a metastatic lesion- -> defer workup of this right-sided renal mass to Urology
- Incentive spirometer encouraged q1hr while awake
- Replete electrolytes with K>4, Mg>2
- Trend H/H and transfuse if needed to keep Hb>7g/dL; keep plt>50k (given post-operative status)
- Maintain euglycemia with goal BG 140-180; HbA1c 7.3 on 09/13/2025; continue his Lantus, which may need to be adjusted if blood sugars remain above goal
- Early ambulation; PT/OT
- SW consulted as well as he had told me that he wanted to possibly live in a assisted as he has been falling a lot at home and needs more help than the 12 hours the aide comes over for; I had passed this information along to social work on
09/17/2025 and they have spoken to the patient about his options after discharge. As of today (09/18), he says that since he is feeling better, that he now wants to go back home instead and not to a facility.
- ADA
- DVT ppx: SCDs; given the downtrending platelet count, likely due to sepsis, will monitor off chemical DVT ppx; if plt count and Hb are stable by tomorrow then would consider adding LMWH vs HSQ
Code status: DNR/DNI
Patient is stable for downgrade out of ICU to telemetry. Given that his respiratory distress has normalized and he is on minimal supplemental oxygen, Pediatric Occupational Therapist/Pulmonary service will now sign off. Patient already has an upcoming appointment with
our office on 11/03/2025, at 2:[address] Jesus. He was encouraged to keep this appointment.
No additional recommendations at this time. Thank you for allowing us to be involved in the care of this patient. Please reconsult if there are any additional questions/concerns, or if patient's respiratory status deteriorates.
Total time spent today was 83 minutes for this encounter. Time includes reviewing laboratory test/imaging results, reviewing pertinent medical records, obtaining and reviewing medical history, performing an appropriate exam, ordering medications,
tests and procedures. Time also includes documentation of this encounter, coordinating patient care and communicating with other healthcare professionals. Total time does not include separately billed tests performed on this date of service.
Subjective Dataa
Subjective Data
Date of Service:
Date of Service: September 18, 2025
Chief Complaint: Pediatric Occupational Therapist Follow Up
Subjective:
Patient seen and evaluated this morning. White blood cell count jumped up to 27.4 from 9.4 yesterday. Off vasopressors since yesterday evening; levo stopped at 1130PM, and vasopressin off since 7 PM. Afebrile overnight with last fever shortly
after midnight on 09/17. He feels well. He is awake, alert and in NAD. Currently on 3 L/min saturating 93% with HR 87 and BP 112/77. He currently denies shortness of breath, chest pain, abdominal pain, nausea, fevers or chills. His main
complaint is that he wants the Robles catheter to be removed.
Review of Systems
General: Other (Negative unless mentioned above)
Objective Data
Data Reviewed
Vital Signs / I&O / Oxygen:
Vital Signs
Temp Pulse Resp BP Pulse Ox
98.1 F 89 14 121/59 97
09/18/25 07:28 09/18/25 08:05 09/18/25 07:38 09/18/25 08:05 09/18/25 07:38
Intake and Output
09/17/25 09/18/25 09/19/25
06:59 06:59 06:59
Intake Total 540 / 540 3382.4 / 3382.4
Output Total 1205 / 1205
Balance 540 / 540 2177.4 / 2177.4
SaO2 97
Nasal Cannula flow liters per 3
minute
Physical Exam
General: Respiratory Distress (negative), Chills (negative) and Sweats (negative)
HEENT: Normocephalic and Anicteric
Cardiovascular: S1-S2, Irregular Rhythm and Peripheral Edema (negative)
Respiratory: Wheeze (negative), Crackles (Bilateral), Rhonchi (negative), Non-Labored Respirations, Accessory Resp Muscle Use (negative), Stridor (negative) and Other (Diminished breath sounds in bases bilaterally)
GI: Soft, Non Distended, Non Tender and Other (No CVA tenderness)
Neurology: AO x 3 and Tremors (negative)
Skin: Warm, Dry, Cyanosis (negative) and Jaundice (negative)
Labs/Micro/Reports
Lab Data
09/18/25 05:07
09/18/25 05:07
Laboratory Results
09/17/25
11:53
pH 7.34 L
pCO2 51 H
pO2 73 L
HCO3 27.5
O2 Delivery Level
Microbiology
09/16/25 05:59 Urine Urine Culture - Final
Escherichia coli
09/17/25 04:56 Blood/Venous Blood Culture - Preliminary
Escherichia coli
09/17/25 04:56 Blood/Venous Gram Stain - Preliminary
09/17/25 06:51 Blood/Venous Blood Culture - Preliminary
No Growth in 24 hours- Final report to follow
09/17/25 04:46 Nasal Swab Influenza Types A & B ([facility]UMI) - Final
Negative for Influenza A & B, NAAT
Negative results must be combined with clinical observations
and patient history.
Nucleic Acid Amplification test (NAAT)performed on the
[employer] platform.
--- NOTE | 2025-09-18 09:00 | PTCARENOTE ---
pt awake and alert , off of vasopressors since 2329 , BP adequate , kolby DC at 0900 leaking at site , NSR with intermittent afib on monitor , BP adequate this am med with antihypertensive this am as ordered , NSS infusing as ordered , oob to
chair this am for breakfast tolerated well with walker , tolerating diet , Robles cath with adequate urine output
--- NOTE | 2025-09-18 10:52 | CM ---
Continue abx await cx, speech consult and PT and OT, asking for SNF at [place] need insurance auth
[facility] his first choice accepted him
[2025-09-18 12:11] LABS: Glucose - Point of Care 129 mg/dl (70-99)
--- NOTE | 2025-09-18 14:22 | PTCARENOTE ---
pt now downgraded to telemetry status , currently is refusing physical therapy consult
--- NOTE | 2025-09-18 16:02 | PTOTSP ---
ST Acute Care Evaluation
Limited evaluation due to pt's refusal/non-compliance with tasks during this examination. Evaluation solely significant for increase in RR with PO intake due to pt's underlying respiratory conditions and acute illness, which place pt at an elevated
risk for aspiration. Pt also at an elevated risk for aspiration given his reduced insight into the extent of his current deficits, reduced short term recall, and reluctance to adhere to recommendations provided by medical review coordinator.
No overt s/s of penetration or aspiration were noted at bedside; however, due to limited PO trials during this exam, it is important to note that these findings may not be truly sales training representative of the pt's actual swallowing function. Additionally, it
is important to note that the pt has a hx of a VFSS in 2022 that revealed at least mild pharyngeal dysphagia with events of both penetration and aspiration with thin and mildly thick liquids (which were sensate and reflexively expectorated from
airway sufficiently), as well as esophageal stasis and retrograde flow through the UES that was deemed at risk for post-prandial aspiration.
Recommendations:
- Continue with regular solids, thin liquids, meds as tolerated.
- Aspiration & reflux precautions: HOB upright during PO intake and for at least 60 minutes after PO intake; small bites/sips; slow intake rate; d/c PO intake if pt is in respiratory distress.
- PUTAWAY DRIVER to f/u re: further assessment of swallowing (if in line with GOC), reinforce compensatory strategies, and to complete an instrumental swallow study (if in line with GOC).
- Consider a cognitive linguistic evaluation / assess cognitive competency to make medical decisions - pt observed to be deflective when presented with more advanced/difficult questions, reduced short term recall, and reduced insight/judgment during
this exam.
[2025-09-18] MEDS: NOVOLOG FLEXPEN-LOW RESISTANCE 1 UNITS SC (17:02)
[2025-09-18 17:11] LABS: Glucose - Point of Care 174 mg/dl (70-99)
[2025-09-18] MEDS: LANTUS 0.05 UNITS SC (21:23)
[2025-09-18 21:33] LABS: Glucose - Point of Care 159 mg/dl (70-99)
[2025-09-19] VITALS (20 sets, daily range): BP systolic 98–156; BP diastolic 62–97; PULSE 90; O2SAT 95; BMI 22.2
[2025-09-19 04:26] LABS: Venous Blood Gas B.E. 0.9 mmol/L (-4 to +4); Venous Blood Gas O2 Sat % 100.0 %
[2025-09-19 05:04] LABS: Blood Urea Nitrogen 32 mg/dl (9-20); Calcium 7.9 mg/dl (8.4-10.2); Carbon Dioxide 31 mmol/L (22-30); Chloride 104 mmol/L (98-107); Estimated Creatinine Clearance 86 ml/min; Glucose 79 mg/dl (70-99); Magnesium 2.1 mg/dl (1.6-2.3); Potassium 4.1 mmol/L (3.5-5.1); Sodium 133 mmol/L (135-145); eGFR > 60.00
[2025-09-19 05:06] LABS: Hematocrit 38.0 % (39.0-52.0); Hemoglobin 12.0 g/dL (13.0-18.0); Mean Corp Hgb Conc. 31.6 g/dL (33.0-37.0); Mean Corpuscular Volume 92.7 fL (80.0-94.0); Platelet Count 46 10^3/uL (130-400); Red Cell Dist. Width 13.6 % (11.5-14.5)
[2025-09-19] MEDS: MAXIPIME 2000 MG IV (06:12)
[2025-09-19] MEDS: STERILE WATER FOR INJECTION 10 ML IV (06:12)
[2025-09-19 06:20] LABS: Normal RBC Morphology No; Ovalocytes 1+; Target Cells Occasional; Toxic Granulation 1+; Vacuolated Segs Occasional
[2025-09-19 06:23] LABS: Acanthocytes Occasional
[2025-09-19 07:18] LABS: Nucleated Red Blood Cells % 0 % (-)
--- NOTE | 2025-09-19 07:21 | W.PN.URO.CBU ---
Today's Communication / Plan
-
continue supportive medical care
resume flomax- laguna out in am
Assessment / Plan
-
Urosepsis (new)
HALI (new)
Obstructing right UVJ stone w/ moderate right hydroureteronephrosis- s/p right ureteral stent
pt improved
cx's + for ecoli
blood pressure improved- restart flomax and plan for laguna removal tomorrow
Diagnosis
-
Date of Service: September 19, 2025
-
Patient Diagnosis:
Urosepsis (new)
HALI (new)
Obstructing right UVJ stone w/ moderate right hydroureteronephrosis
s/p right ureteral stent 09/17
Subjective
-
pt feeling better
BP's stabilized
no fevers/wbc downtrending
ecoli in blood and urine
Objective
-
Vital Signs
Temp Pulse Resp BP Pulse Ox
97.8 F 84 15 123/86 99
09/19/25 02:04 09/19/25 02:00 09/19/25 02:00 09/19/25 02:00 09/19/25 02:00
Intake and Output
09/18/25 09/19/25 09/20/25
06:59 06:59 06:59
Intake Total 3382.4 / 3482.4 2250 / 2250
Output Total 1205 / 1275 1350 / 1350
Balance 2177.4 / 2207.4 900 / 900
Intake:
Oral fluids 600 / 600 250 / 250
IV fluids (Total) 2682.4 / 2782.4 1999
Norepi 446.4 / 446.4 0 / 0
Nss 1,000 ml @ 100 mls/hr IV . 2099
Q10H JORGE Rx#:[id number]
Vaso 36 / 36 0 / 0
normosol 100 / 100
IV piggybacks 100 / 100
Output:
Urine, Laguna 1205 / 1275 1350 / 1350
Laboratory Results
09/19/25 04:19
09/19/25 04:19
Review of Systems
-
Constitutional: Fatigue
Respiratory: No Symptoms
Cardiac: No Symptoms
Abdomen/GI: No Symptoms
Physical Exam
-
General - no acute distress
Abdomen - soft, non-tender
Genitalia - laguna in place
--- NOTE | 2025-09-19 07:25 | W.PN.HOSP.TC ---
Today's Communication/Plan
-
Transfer out of ICU
Change antibiotics to cefazolin
PT/OT
Flomax
Assessment / Plan
Assessment / Plan
Gen-AAOx3, NAD
HEENT-NC, AT, anicteric, clear oral mm
Neck-supple
CV-reg, no M, +S1/S2
Lungs-clear B/L
Abd-soft, NT, ND
Ext-no edema
Musculoskeletal-no cyanosis, clubbing
Skin-warm and dry
Neuro-grossly non-focal
Psych-calm, cooperative
E. coli septic shock -sepsis complicated by HALI, obstructive uropathy. Onset of sepsis evening of 09/16. Lactic acidosis due to sepsis, improved.
Etiology of sepsis likely due to nephrolithiasis, acute right sided pyelonephritis.
Septic shock resolved. Off pressors. Hemodynamically improved. Fever resolved. Leukocytosis improving.
Will change to cefazolin IV.
No need for further stress dose steroids.
Transient episode of hypotension noted yesterday, resolved. Cardizem formulation changed from long-acting to immediate release by analog design engineer to watch for any further hypotension.
HALI/obstructive uropathy -presentation with acute right hydro utero nephrosis, due to 3 mm obstructing calculus at the right UV junction.
Underwent cystoscopy, right ureteral stone manipulation, right ureteral stent insertion 09/17.
Avoid NSAIDs.
HALI improved.
Robles catheter per urology, to come out on Saturday. Resume Flomax. Discussed with Dr. Early.
Acute thrombocytopenia -46k. Likely due to sepsis. Monitor for now.
Hyponatremia -133. Hyponatremia appears fairly chronic, at least since July. Monitor for now.
Hypomagnesemia - improved.
Hypophosphatemia -Will replete orally, recheck in AM.
Dysphagia -seen and evaluated by speech therapy. Continue with solids, thin liquids. Aspiration and reflux precautions.
Agree that patient may have underlying cognitive impairment that can be evaluated further as an outpatient.
COPD without exacerbation -recently hospitalized and discharged 09/14 for COPD exacerbation. Continue steroid taper.
Paroxysmal atrial fibrillation -not on chronic anticoagulation due to frequent falls. Continue Cardizem.
Essential hypertension -stable.
DM 2 with peripheral neuropathy -glucose 79 this morning. Daytime glucoses relatively controlled.
Continue Lantus 5 units at bedtime, NovoLog low resistance sliding scale.
Hyperlipidemia -atorvastatin.
Chronic heart failure preserved EF -stable.
history of prostate cancer
DNR
PT/OT
Anticipated Discharge: 24 - 48 hours
Subjective/Interval History
-
Date of Service: September 19, 2025
Patient seen and examined, no complaints.
Objective Data
-
Labs:
Laboratory Results
09/19/25
04:19
WBC 20.6 H
Hgb 12.0 L
Hct 38.0 L
Plt Count 46 L
Sodium 133 L
Potassium 4.1
Chloride 104
Carbon Dioxide 31 H
BUN 32 H
Creatinine 0.6 L
Glucose 79
Calcium 7.9 L
Vital Signs:
Vital Signs
Temp Pulse Resp BP Pulse Ox
97.8 F 84 15 123/86 99
09/19/25 02:04 09/19/25 02:00 09/19/25 02:00 09/19/25 02:00 09/19/25 02:00
I&O
09/18/25 09/19/25 09/20/25
06:59 06:59 06:59
Intake Total 3382.4 / 3482.4 2250 / 2250
Output Total 1205 / 1275 1350 / 1350
Balance 2177.4 / 2207.4 900 / 900
Review of Systems
-
History Source: Patient
All other systems: Reviewed and negative
[2025-09-19] MEDS: PULMICORT 0.5 MG INH ×2 (07:36→20:01)
[2025-09-19] MEDS: DUONEB 3 ML INH ×4 (07:37→20:01)
[2025-09-19 08:09] LABS: Glucose - Point of Care 70 mg/dl (70-99)
[2025-09-19] MEDS: NOVOLOG FLEXPEN-LOW RESISTANCE SC ×2 (08:36→11:41)
[2025-09-19] MEDS: LIPITOR 40 MG PO (08:37)
[2025-09-19] MEDS: LOW STRENGTH ASPIRIN 81 MG PO (08:37)
[2025-09-19] MEDS: CARDIZEM 30 MG PO ×4 (08:37→22:02)
[2025-09-19] MEDS: FLOMAX 0.4 MG PO ×2 (08:38→19:50)
[2025-09-19] MEDS: DELTASONE 30 MG PO (08:38)
[2025-09-19] MEDS: PROTONIX 20 MG PO (08:38)
[2025-09-19] MEDS: NSS (PRESERVATIVE FREE) IV (08:39)
[2025-09-19] MEDS: NEUTRA-PHOS POWDER PACKET 250 MG PO ×4 (08:39→22:02)
--- NOTE | 2025-09-19 08:49 | PTCARENOTE ---
Assumed care of Pt at shift change. Pt resting comfortably in bed; AAO x 3, agitated and upset once asked to get OOB to chair. VSS; NSR + BBB on monitor. Distant apical; Denies pain at rest but reports L arm very sensitive to movement/touch;
Fine crackles in b/l bases. Robles in place, draining clear yellow urine; Pt assisted with breakfast in bed. Poor delma, Pt refusing to eat solid food - only wants coffee. Accucheck in AM = 70, Pt agreed to drinking OJ. WIll continue to monitor and
assess.
[2025-09-19 11:38] LABS: Glucose - Point of Care 90 mg/dl (70-99)
[2025-09-19 16:40] LABS: Glucose - Point of Care 196 mg/dl (70-99)
[2025-09-19] MEDS: ANCEF 10 IV ×2 (17:04→23:35)
[2025-09-19] MEDS: NOVOLOG FLEXPEN-LOW RESISTANCE 1 UNITS SC (17:04)
[2025-09-19] MEDS: FLUSH (NSS) 2 FLUSH IV (19:51)
[2025-09-19] MEDS: LANTUS 0.05 UNITS SC (22:02)
[2025-09-19 22:13] LABS: Glucose - Point of Care 144 mg/dl (70-99)
--- NOTE | 2025-09-19 22:36 | PTCARENOTE ---
Report received from previous shift RN [id number]. Pt in bed, AAO3, no complaints offered. Lung sounds are decreased/coarse throughout w fine crackles in b/l base, oc moist cough, 96% on 2L O2. Telemetry rhythm reveals SR w BBB and PACs, HR 70-90's, trace
edema noted in extremities x4, palpable peripheral pulses noted, knee high SCDs. +BS, abdomen round/obese, poor appetite reported, 1800 ADA diet ordered. Robles catheter in place draining yellow/flaco urine. R DL PICC flushed and patent, capped. Skin
as documented. Telemetry orders noted. Safe environment maintained, call rose within reach.
Pt being transferred to room 0. Pt aware of pending move. All belongings packed and to be transferred w pt. RT aware of pending transfer. Report called to 2N RN.
[2025-09-20] VITALS (8 sets, daily range): BP systolic 99–144; BP diastolic 65–84; PULSE 2–98; O2SAT 95; BMI 21.8
[2025-09-20 06:02] LABS: Hematocrit 37.9 % (39.0-52.0); Hemoglobin 12.0 g/dL (13.0-18.0); Mean Corp Hgb Conc. 31.7 g/dL (33.0-37.0); Mean Corpuscular Volume 91.3 fL (80.0-94.0); Nucleated Red Blood Cells % 0 % (-); Platelet Count 66 10^3/uL (130-400); Red Cell Dist. Width 13.8 % (11.5-14.5)
[2025-09-20 06:03] LABS: Blood Urea Nitrogen 20 mg/dl (9-20); Calcium 8.0 mg/dl (8.4-10.2); Carbon Dioxide 35 mmol/L (22-30); Chloride 99 mmol/L (98-107); Estimated Creatinine Clearance 87 ml/min; Glucose 60 mg/dl (70-99); Magnesium 1.9 mg/dl (1.6-2.3); Potassium 3.8 mmol/L (3.5-5.1); Sodium 133 mmol/L (135-145); eGFR > 60.00
[2025-09-20] MEDS: PULMICORT 0.5 MG INH ×2 (07:40→19:28)
[2025-09-20] MEDS: DUONEB 3 ML INH (07:40)
[2025-09-20 07:57] LABS: Glucose - Point of Care 55 mg/dl (70-99)
[2025-09-20] MEDS: NOVOLOG FLEXPEN-LOW RESISTANCE SC ×2 (08:00→11:36)
[2025-09-20 08:23] LABS: Glucose - Point of Care 76 mg/dl (70-99)
[2025-09-20] MEDS: LOW STRENGTH ASPIRIN 81 MG PO (08:31)
[2025-09-20] MEDS: LIPITOR 40 MG PO (08:31)
[2025-09-20] MEDS: PROTONIX 20 MG PO (08:31)
[2025-09-20] MEDS: DELTASONE 20 MG PO (08:31)
[2025-09-20] MEDS: FLOMAX 0.4 MG PO ×2 (08:31→19:24)
[2025-09-20] MEDS: CARDIZEM PO (08:32)
[2025-09-20] MEDS: ANCEF 10 IV ×3 (08:32→23:53)
[2025-09-20] MEDS: NSS (PRESERVATIVE FREE) IV (08:33)
[2025-09-20] MEDS: NEUTRA-PHOS POWDER PACKET 250 MG PO ×4 (08:34→21:48)
--- NOTE | 2025-09-20 08:40 | W.PN.HOSP.TC ---
Today's Communication/Plan
-
Asymptomatic Hypoglycemia, hold Insulin
Voiding trial today
Anticipated discharge tomorrow
Assessment / Plan
Assessment / Plan
Physical Exam
Gen-AAOx3, NAD
HEENT-NC, AT, anicteric, clear oral mm
Neck-supple
CV-reg, no M, +S1/S2
Lungs-clear B/L
Abd-soft, NT, ND
Ext-no edema
Musculoskeletal-no cyanosis
Skin-warm and dry
Neuro-grossly non-focal
Psych-calm, cooperative
Assessment/Plan
E. coli septic shock -sepsis complicated by HALI, obstructive uropathy. Onset of sepsis evening of 09/16. Lactic acidosis due to sepsis, improved.
Etiology of sepsis likely due to nephrolithiasis, acute right sided pyelonephritis.
Septic shock resolved. Off pressors. Hemodynamically improved. Fever resolved. Leukocytosis improving.
Continue cefazolin IV.
No need for further stress dose steroids.
Cardizem formulation changed from long-acting to immediate release by systems software specialist to watch for any further hypotension.
HALI/obstructive uropathy -presentation with acute right hydro utero nephrosis, due to 3 mm obstructing calculus at the right UV junction.
Underwent cystoscopy, right ureteral stone manipulation, right ureteral stent insertion 09/17.
Avoid NSAIDs.
HALI improved.
Robles catheter per urology, to come out on 09/20/25. Continue Flomax.
Acute thrombocytopenia -46k, improved to 66. Likely due to sepsis. No bleeding or signs of thrombosis. Check Coags, Retic count, LDH, CMP
Hyponatremia -133. Hyponatremia appears fairly chronic, at least since July 2025. Monitor for now.
Hypomagnesemia - improved.
Hypophosphatemia -Repleted orally, recheck in AM.
Dysphagia -seen and evaluated by speech therapy. Continue with solids, thin liquids. Aspiration and reflux precautions.
Agree that patient may have underlying cognitive impairment that can be evaluated further as an outpatient.
COPD without exacerbation -recently hospitalized and discharged 09/14 for COPD exacerbation. Continue steroid taper.
Paroxysmal atrial fibrillation -not on chronic anticoagulation due to frequent falls. Continue Cardizem.
Essential hypertension -stable.
DM 2 with peripheral neuropathy
Asymptomatic Hypoglycemia
- Hold Insulin given asymptomatic Hypoglycemia
Hyperlipidemia -atorvastatin.
Chronic heart failure preserved EF -stable.
history of prostate cancer
DNR
PT/OT
Anticipated Discharge: Within 24 hours
Subjective/Interval History
-
Date of Service: September 20, 2025
Patient was seen and examined. He reported no new symptoms or complaints.
Objective Data
-
Labs:
Laboratory Results
09/20/25
05:05
WBC 15.1 H
Hgb 12.0 L
Hct 37.9 L
Plt Count 66 L D
Sodium 133 L
Potassium 3.8
Chloride 99
Carbon Dioxide 35 H
BUN 20
Creatinine 0.6 L
Glucose 60 L
Calcium 8.0 L
Vital Signs:
Vital Signs
Temp Pulse Resp BP Pulse Ox
97.8 F 92 16 99/65 95
09/20/25 08:31 09/20/25 08:32 09/20/25 08:31 09/20/25 08:32 09/20/25 08:31
I&O
09/19/25 09/20/25 09/21/25
06:59 06:59 06:59
Intake Total 2250 / 2250 1320 / 1320
Output Total 1350 / 1350 2725 / 2725
Balance 900 / 900 -1405 / -1405
[2025-09-20 10:35] LABS: Glucose - Point of Care 66 mg/dl (70-99)
[2025-09-20 11:22] LABS: Glucose - Point of Care 103 mg/dl (70-99)
[2025-09-20] MEDS: CARDIZEM 30 MG PO ×3 (12:30→22:01)
[2025-09-20] MEDS: NEURONTIN 100 MG PO (12:34)
[2025-09-20 13:21] LABS: Glucose - Point of Care 88 mg/dl (70-99)
[2025-09-20 15:01] LABS: Glucose - Point of Care 95 mg/dl (70-99)
--- NOTE | 2025-09-20 16:17 | CM ---
CM reviewed chart- ADC 1-2 days
VN now recommended by PT
Will to need to follow up with pt on planning
Previously, [facility] had accepted pt pending bed availability and [employer] auth
Discharge Disposition- home with VN vs SNF
[2025-09-20 21:06] LABS: Glucose - Point of Care 180 mg/dl (70-99)
[2025-09-21 02:14] LABS: Glucose - Point of Care 96 mg/dl (70-99)
[2025-09-21] MEDS: VISBIOME 1 CAP PO ×2 (03:11→09:25)
[2025-09-21 03:13] VITALS: BP 149/83
[2025-09-21 04:25] LABS: Hematocrit 41.4 % (39.0-52.0); Hemoglobin 13.0 g/dL (13.0-18.0); Mean Corp Hgb Conc. 31.4 g/dL (33.0-37.0); Mean Corpuscular Volume 91.0 fL (80.0-94.0); Nucleated Red Blood Cells % 0 % (-); Platelet Count 61 10^3/uL (130-400); Red Cell Dist. Width 13.7 % (11.5-14.5); Reticulocyte Count 0.8 % (0.4-2.8)
[2025-09-21 04:29] LABS: INR 1.13; PT 14.6 Sec (11.4-14.6)
[2025-09-21 04:30] LABS: APTT 27.0 Sec (23.4-35.0)
[2025-09-21 04:48] LABS: ALT (SGPT) 35 U/L (0-50); AST (SGOT) 16 U/L (17-59); Albumin 2.7 g/dl (3.5-5.0); Alkaline Phosphatase 118 U/L (38-126); Blood Urea Nitrogen 15 mg/dl (9-20); Calcium 8.0 mg/dl (8.4-10.2); Chloride 97 mmol/L (98-107); Estimated Creatinine Clearance 85 ml/min; Glucose 94 mg/dl (70-99); LDH 244 U/L (120-246); Magnesium 1.6 mg/dl (1.6-2.3); Potassium 3.3 mmol/L (3.5-5.1); Sodium 135 mmol/L (135-145); Total Protein 4.9 g/dl (6.3-8.2); eGFR > 60.00
[2025-09-21 05:19] LABS: Carbon Dioxide 39 mmol/L (22-30)
--- NOTE | 2025-09-21 05:40 | PTCARENOTE ---
Pt with multiple loose/liquid stools overnight. MARKET DEVELOPMENT DIRECTOR notified-C.diff study ordered. Patient with persistent frequency/urgency r/t urinary voiding-See Nursing Shift Assx. BS post-void for 439. Patient c/o diarrhea at this time.
[2025-09-21 05:59] VITALS: BMI 20.8
[2025-09-21 06:00] VITALS: BMI 20.8
[2025-09-21] MEDS: KCL 20 MEQ PO ×2 (06:29→09:24)
--- NOTE | 2025-09-21 07:11 | W.PN.HOSP.TC ---
Today's Communication/Plan
-
See plan
Assessment / Plan
Assessment / Plan
Physical Exam
Gen-AAOx3, NAD
HEENT-NC, AT, anicteric, clear oral mm
Neck-supple
CV-reg, no M, +S1/S2
Lungs-clear B/L
Abd-soft, NT, ND
Ext-no edema
Musculoskeletal-no cyanosis
Skin-warm and dry
Neuro-grossly non-focal
Psych-calm, cooperative
Assessment/Plan
E. coli septic shock -sepsis complicated by HALI, obstructive uropathy. Onset of sepsis evening of 09/16. Lactic acidosis due to sepsis, improved.
Etiology of sepsis likely due to nephrolithiasis, acute right sided pyelonephritis.
Septic shock resolved. Off pressors. Hemodynamically improved. Fever resolved. Leukocytosis improving.
Continue cefazolin IV, will transition to Keflex
No need for further stress dose steroids.
Cardizem formulation changed from long-acting to immediate release by donor processor to watch for any further hypotension.
HALI/obstructive uropathy -presentation with acute right hydro utero nephrosis, due to 3 mm obstructing calculus at the right UV junction.
Underwent cystoscopy, right ureteral stone manipulation, right ureteral stent insertion 09/17.
Avoid NSAIDs.
HALI improved.
Robles catheter per urology, to come out on 09/20/25. Continue Flomax.
- F/U w/ Dr. Majano in 2-3 weeks for preop visit to schedule definitive outpatient stone surgery (see Update Note from 09/21/25)
New Diarrhea
- Imodium helped
- C. diff negative
- Suspected from antibiotics
- Initially diarrhea was profuse
- Appreciate GI
Acute thrombocytopenia -46k, improved to 66. Likely due to sepsis. No bleeding or signs of thrombosis. Appreciate hematology (see note from 09/21/25) -- no HIT testing needed.
Hyponatremia -133. Hyponatremia appears fairly chronic, at least since July 2025. Monitor for now.
Hypomagnesemia - improved.
Hypophosphatemia -Repleted orally, recheck in AM.
Dysphagia -seen and evaluated by speech therapy. Continue with solids, thin liquids. Aspiration and reflux precautions.
Agree that patient may have underlying cognitive impairment that can be evaluated further as an outpatient.
COPD without exacerbation -recently hospitalized and discharged 09/14 for COPD exacerbation. Continue steroid taper.
Paroxysmal atrial fibrillation -not on chronic anticoagulation due to frequent falls. Continue Cardizem.
Essential hypertension -stable.
DM 2 with peripheral neuropathy
Asymptomatic Hypoglycemia
- Hold Insulin given asymptomatic Hypoglycemia
Urinary Retention
- Patient reports that this is chronic
- Continue bladder scans protocol
Hyperlipidemia -atorvastatin.
Chronic heart failure preserved EF -stable.
history of prostate cancer
DNR
PT/OT
Anticipated Discharge: Within 24 hours
Subjective/Interval History
-
Date of Service: September 21, 2025
Patient was seen and examined. He had new diarrhea this morning.
Objective Data
-
Labs:
Laboratory Results
09/21/25
04:06
WBC 10.5
Hgb 13.0
Hct 41.4
Plt Count 61 L
PT 14.6
INR 1.13
APTT 27.0
Sodium 135
Potassium 3.3 L
Chloride 97 L
Carbon Dioxide 39 H
BUN 15
Creatinine 0.5 L
Glucose 94
Calcium 8.0 L
Total Bilirubin 0.8
AST 16 L
ALT 35
Alkaline Phosphatase 118
Vital Signs:
Vital Signs
Temp Pulse Resp BP Pulse Ox
97.6 F 83 18 149/83 92
09/21/25 03:13 09/21/25 03:13 09/21/25 03:13 09/21/25 03:13 09/21/25 04:59
I&O
09/20/25 09/21/25 09/22/25
06:59 06:59 06:59
Intake Total 1320 / 1320 730 / 730
Output Total 2725 / 2725 1800 / 1800
Balance -1405 / -1405 -1070 / -1070
[2025-09-21] MEDS: PULMICORT 0.5 MG INH ×2 (07:22→19:12)
[2025-09-21] MEDS: DUONEB 3 ML INH (07:22)
[2025-09-21 08:28] VITALS: BP 129/73
[2025-09-21 08:48] LABS: Glucose - Point of Care 93 mg/dl (70-99)
[2025-09-21] MEDS: FLOMAX 0.4 MG PO ×2 (09:25→20:11)
[2025-09-21] MEDS: LOW STRENGTH ASPIRIN 81 MG PO (09:25)
[2025-09-21] MEDS: LIPITOR 40 MG PO (09:26)
[2025-09-21] MEDS: CARDIZEM 30 MG PO ×3 (09:26→21:27)
[2025-09-21] MEDS: PROTONIX 20 MG PO (09:26)
[2025-09-21] MEDS: NSS (PRESERVATIVE FREE) IV (09:27)
[2025-09-21] MEDS: DELTASONE 20 MG PO (09:27)
[2025-09-21] MEDS: NEUTRA-PHOS POWDER PACKET 250 MG PO ×4 (09:27→21:28)
[2025-09-21] MEDS: ANCEF 10 IV ×3 (09:27→23:48)
[2025-09-21] MEDS: IMODIUM 2 MG PO (09:31)
--- NOTE | 2025-09-21 09:53 | CON.ONC ---
Consultation
-
Date Consultation Requested: 09/21/25
Date Consultation Performed: 09/21/25
Requesting Provider: Dr. Justice Healy
Performing Provider: Dr Zoë Mcgregor
Reason for Consultation: thrombocytopenia
Impression
Impression
Ecoli bacteremia and urosepsis, in the setting of obstruction kidney stone
Thrombocytopenia
COPD
Plan
Plan
Drop in platelet count is likely from Cefepime/antibiotics and sepsis.
Anticipate gradual improvement as he recovers
Would not pursue testing for HIT
Rec outpatient CBC check per PMD
Will sign off
Patient History
History of Present Illness
This is an 84 yo M who presented with flank pain. Imaging showed an obstructing 3mm calculus at the right UVJ. Blood and urine cultures grew E. Coli. He was started on cefepime, and underwent urologic intervention to address the stone. His platelet
count at admission was 143, and dropped to the 60s the next day, and has been stable in that range since then. No bleeding. He was recently admitted for COPD exacerbation prior to this admission and got a couple days of LMWH. He denies any h/o
thrombocytopenia, though review of prior hospital records show baseline platelet count is only 130-150 and he's dropped < 100 several times before.
Past-Medical/Surgical History
Past Medical History
Past Medical History: Reports Other
Additional Past Medical History:
Chronic Hypoxic Respiratory Failure
Severe COPD
Chronic HFpEF
Paroxysmal Atrial Fibrillation
Hypertension
Diabetes Mellitus, Type II
Dysphagia
GERD
Hx Prostate CA
Past Surgical History: Reports Other
Additional Past Surgical History:
Cholecystectomy
Social History
Tobacco: Smoker (Started smoking at the age of 11. Current every day smoker. > 60 pack years total use.)
Alcohol: None
Family History
Family History: Not pertinent
Patient Medication
�Medication �Instructions �Recorded �Confirmed �Last Taken �Type
atorvastatin 40 mg tablet 40 mg PO DAILY High cholesterol 06/04/23 09/16/25 11/06/23 Rx
#30 tabs
diltiazem HCl 120 mg 120 mg PO DAILY Arrhythmia #30 caps 06/04/23 09/16/25 11/06/23 Rx
capsule,extended release 24 hr
albuterol sulfate 2.5 mg/3 mL 2.5 mg inhalation R Q6HPRN PRN 11/07/23 09/16/25 11/06/23 History
(0.083 %) solution for nebulization wheezing
budesonide 0.5 mg/2 mL suspension 0.5 mg inhalation R BID 05/13/24 09/16/25 Unknown History
for nebulization Lung/Breathing Issues
omeprazole 20 mg capsule,delayed 20 mg PO DAILY PRN 05/13/24 09/16/25 Unknown History
release Gastrointestinal Issue
tamsulosin 0.4 mg capsule 0.4 mg PO BID Urinary issue 05/13/24 09/16/25 Unknown History
gabapentin 100 mg capsule 100 mg PO TID Pain 07/13/25 09/16/25 Unknown History
prednisone 10 mg tablet 10 mg PO DAILY Anti-Inflammatory 07/13/25 09/16/25 Unknown History
Held on 09/14/25.
Instructions: Resume 10 mg
daily after you complete the
prednisone taper.
sodium chloride 0.65 % nasal spray 1 spray intranasal QIDPRN PRN dry 07/15/25 09/16/25 Unknown Rx
aerosol (Saline Nasal) nares #44 mL
acetaminophen 325 mg tablet 650 mg PO Q6H PRN pain 09/12/25 09/16/25 Unknown History
(Tylenol)
prednisone 10 mg tablet 10 mg PO DIRECTED #30 tabs 09/13/25 09/16/25 Unknown Rx
aspirin 81 mg chewable tablet 81 mg PO DAILY Blood Clot 09/16/25 09/16/25 Unknown History
Prevention/Tx
insulin glargine 100 unit/mL (3 5 unit SC HS Diabetes 09/16/25 09/16/25 Unknown History
mL) subcutaneous pen (Basaglar
KwikPen U-100 Insulin)
Active Medications
Generic Name Dose Route Start Last Admin
Trade Name Freq PRN Reason Stop Dose Admin
Acetaminophen 650 mg 09/16/25 10:11
Acetaminophen 325 Mg Tablet PO 10/14/25 10:10
Q4HPRN PRN
mild pain/NUR/temp> 100.4F
Albuterol/Ipratropium 3 ml 09/16/25 15:37 09/21/25 07:22
Ipratropium 0.5/Albuterol 3 Mg (3 Ml Ampul) INH 3 ml
R Q4HPRN PRN Administration
SOB/wheezing
Protocol
Aspirin 81 mg 09/16/25 10:11 09/21/25 09:25
Aspirin 81 Mg Chewable Tablet PO 10/14/25 10:10 81 mg
DAILY JORGE Administration
Atorvastatin Calcium 40 mg 09/16/25 10:11 09/21/25 09:26
Atorvastatin (Lipitor) 40 Mg Tablet PO 10/14/25 10:10 40 mg
DAILY JORGE Administration
Bisacodyl 10 mg 09/16/25 10:11
Bisacodyl 10 Mg Rectal Suppository RECTAL 10/14/25 10:10
[id number] PRN
constipation
Budesonide 0.5 mg 09/16/25 10:11 09/21/25 07:22
Budesonide (Pulmicort Respules) 0.5 Mg/2 Ml INH 0.5 mg
R BID JORGE Administration
Protocol
Dextrose 12.5 grams 09/16/25 12:12
Dextrose 50% (0.5 Grams/Ml) 50 Ml Syringe IV 10/14/25 12:11
[id number] PRN
hypoglycemia
Protocol
Diltiazem HCl 120 mg 09/18/25 08:00 09/18/25 08:05
Diltiazem 120 Mg Extended Release (24 H) Capsule PO 10/16/25 07:59 120 mg
On Hold: 09/18/25 12:25 DAILY JORGE Administration
Comment: Hypotension
Diltiazem HCl 30 mg 09/19/25 08:00 09/21/25 09:26
Diltiazem 30 Mg Regular Release Tablet PO 10/17/25 07:59 30 mg
QID JORGE Administration
Gabapentin 100 mg 09/16/25 10:11 09/20/25 12:34
Gabapentin 100 Mg Capsule PO 10/14/25 10:10 100 mg
TIDPRN PRN Administration
nerve pain
Glucagon 1 mg 09/16/25 12:12
Glucagon 1 Mg Vial IM 10/14/25 12:11
PRN PRN
hypoglycemia
Protocol
Hydromorphone HCl 0.25 mg 09/16/25 10:11 09/16/25 23:52
Hydromorphone 0.5 Mg/0.5 Ml Syringe IV 09/30/25 10:10 0.25 mg
Q4HPRN PRN Administration
severe pain
Insulin Glargine 5 units/ 0.05 mls @ 0 mls/hr 09/17/25 22:00 09/19/25 22:02
Device SC 10/15/25 21:59 0.05 mls
On Hold: 09/20/25 13:46 HS JORGE Administration
As Directed
Cefazolin Sodium 2 grams in 10 mls @ 120 mls/hr 09/19/25 16:00 09/21/25 09:27
Ancef IV 10 mls
Q8H JORGE Administration
Insulin Aspart 0 units 09/16/25 12:20 09/20/25 11:36
Insulin Aspart Low Resistance 300 Units/3 Ml Pen.Injctr SC 10/14/25 12:19 Not Given
On Hold: 09/20/25 13:46 AC JORGE
Protocol
Lactobacillus/Bifidobacterium 1 cap 09/21/25 08:00 09/21/25 09:25
Lactobac/Bifidobac (Visbiome) PO 10/19/25 07:59 1 cap
DAILY JORGE Administration
Ondansetron HCl 4 mg 09/16/25 10:11
Ondansetron 4 Mg/2 Ml Vial IV 10/14/25 10:10
Q6HPRN PRN
nausea and vomiting
Pantoprazole Sodium 20 mg 09/19/25 08:00 09/21/25 09:26
Pantoprazole 20 Mg Delayed Release Tablet PO 10/17/25 07:59 20 mg
DAILY JORGE Administration
Polyethylene Glycol 17 grams 09/16/25 10:11 09/16/25 10:43
Polyethylene Glycol Powder 17 Grams Packet PO 10/14/25 10:10 17 grams
DAILYPRN PRN Administration
constipation
Potassium Phosphate 250 mg 09/19/25 09:00 09/21/25 09:27
Neutra-Phos Powder Concentrate (250 Mg) Packet PO 10/17/25 08:59 250 mg
PCHS JORGE Administration
Prednisone 20 mg 09/20/25 08:00 09/21/25 09:27
Prednisone 20 Mg Tablet PO 09/24/25 08:01 20 mg
DAILY JORGE Administration
Prednisone 10 mg 09/25/25 08:00
Prednisone 10 Mg Tablet PO 10/23/25 07:59
DAILY JORGE
Senna/Docusate Sodium 1 tablet 09/16/25 10:11
Docusate W/Senna ([place]) Tablet PO 10/14/25 10:10
BIDPRN PRN
constipation
Sodium Chloride 1 sprays 09/16/25 10:11
Sodium Chloride 0.65% Nasal [place] 45 Ml Bottle NASAL 10/14/25 10:10
QIDPRN PRN
dry nares
Sodium Chloride 0 flush 09/16/25 11:00 09/19/25 19:51
Sodium Chloride 0.9% (Flush) Syringe IV 10/14/25 10:59 2 flush
PER PROTOCOL JORGE Administration
Sodium Chloride 10 ml 09/17/25 12:00 09/21/25 09:27
Sodium Chloride 0.9% (Preservative Free) 10 Ml Vial IV 10/15/25 11:59 Not Given
DAILY JORGE
Sodium Chloride 2 sprays 09/19/25 15:47
Sodium Chloride 0.65% Nasal [place] 45 Ml Bottle NASAL 10/17/25 15:46
QIDPRN PRN
dry nose
Tamsulosin HCl 0.4 mg 09/19/25 08:00 09/21/25 09:25
Tamsulosin 0.4 Mg Capsule PO 10/17/25 07:59 0.4 mg
BID JORGE Administration
Review of Systems
-
All Other Systems: Not reviewed unless documented
Physical Exam
-
General: Well Developed, Well Nourished, No Apparent Distress and Comfortable; Negative Respiratory Distress
Neurology: Non Focal
Skin: Warm and Dry
Psych: Calm and Intact Judgement/Insight
Labs
Lab Results
WBC 10.5 10^3/uL (4.8-10.8) 09/21/25 04:06
RBC 4.55 10^6/uL (4.70-6.10) L 09/21/25 04:06
Hgb 13.0 g/dL (13.0-18.0) 09/21/25 04:06
Hct 41.4 % (39.0-52.0) 09/21/25 04:06
MCV 91.0 fL (80.0-94.0) 09/21/25 04:06
MCH 28.6 pg (27.0-31.0) 09/21/25 04:06
MCHC 31.4 g/dL (33.0-37.0) L 09/21/25 04:06
RDW 13.7 % (11.5-14.5) 09/21/25 04:06
Plt Count 61 10^3/uL (130-400) L 09/21/25 04:06
MPV 12.6 fL (7.4-10.4) H 09/21/25 04:06
Abs Immat Gran (auto) 0.1 10^3/uL (0-0.05) H 09/21/25 04:06
Absolute Neuts (auto) 8.6 10^3/uL (1.4-6.5) H 09/21/25 04:06
Absolute Lymphs (auto) 0.6 10^3/uL (1.2-3.4) L 09/21/25 04:06
Absolute Monos (auto) 1.0 10^3/uL (0.1-0.6) H 09/21/25 04:06
Absolute Eos (auto) 0.1 10^3/uL (0-0.7) 09/21/25 04:06
Absolute Basos (auto) 0.0 10^3/uL (0-0.2) 09/21/25 04:06
Immature Gran % 1.1 % (0-0.5) H 09/21/25 04:06
Neutrophils % 82.4 % (42.2-75.2) H 09/21/25 04:06
Lymphocytes % 5.7 % (20.5-51.1) L 09/21/25 04:06
Monocytes % 9.9 % (1.7-9.3) H 09/21/25 04:06
Eosinophils % 0.6 % (0-6) 09/21/25 04:06
Basophils % 0.3 % (0-2) 09/21/25 04:06
Creatinine 0.5 mg/dL (0.7-1.3) L 09/21/25 04:06
Vital Signs
Vital Signs
Temp Pulse Resp BP Pulse Ox
97.2 F 98 16 129/73 92
09/21/25 08:28 09/21/25 09:26 09/21/25 08:28 09/21/25 09:26 09/21/25 08:28
--- NOTE | 2025-09-21 10:07 | W.PN.UPDATE ---
Update Note
Progress Note Update
E. Coli urosepsis
E. Coli bacteremia
HALI
Obstructing right UVJ stone
09/17: s/p emergent right ureteral stent insertion.
Plan:
- F/U w/ Dr. Majano in 2-3 weeks for preop visit to schedule definitive outpatient stone surgery
--- NOTE | 2025-09-21 10:56 | PN.CDI ---
CDI
- -
CDI:
Physician Documentation Request
Admit Date: 09/17/25 08:18
Dear Doctor Niraj,
Please review the following and provide your response in the progress notes.
Clinical Indicators:
Pt admitted with COPD exacerbation/Sepsis / UTI/Hydronephrosis /HALI
Documented per nursing wound care 09/16, Present on admission Sacrum pressure injury stage 1 ..wound care treatment Calazime...'
Physician documentation of the type and location of wounds is required for compliant documentation. Based on the above clinical findings and your assessment, please provide the following in your progress note:
1. Location of the ulcer/wound, including laterality.
2. Type (etiology) of ulcer/wound:
- Pressure (decubitus) ulcer
- Non-pressure ulcer
- Other ( please specify)
Use of terms such as suspected, likely, concern for, or probable (associated with a specific diagnosis that is being evaluated, monitored, or treated as if it exists) are acceptable and can be coded in the inpatient setting, when documented at the
time of discharge.
Thank you,
Karena Shankar RN
CDI Specialist
[facility]
Please use your independent medical judgment in providing your response.
*Source: National Pressure Ulcer Advisory Panel (NPUAP)
--- NOTE | 2025-09-21 11:27 | CON.GI ---
Addendum entered and electronically signed by Martin Miller MD 09/21/25 15:34:
The patient was seen and examined by me independently in collaboration with the nurse practitioner.
Past medical history/social history/medications/allergies/family history reviewed.
Lab data and imaging data reviewed.
84-year-old male paroxysmal A-fib not anticoagulation, prostate cancer history of prior radiation, COPD on oxygen presenting with hydroureteronephrosis with stent and Laguna placement. Course complicated by urosepsis. He states his been having
diarrhea since admission. Denied diarrhea prior to admission for me. He states he had innumerable bowel movements. Every time he urinates she had a bowel movement. She had an x-ray September 16 with moderate stool in the colon without dilation.
He states the diarrhea resolved today after getting 1 dose of Imodium. Tita ordered a repeat x-ray which showed normal amount of stool in the colon. Stool culture is pending. Giardia and C. difficile are negative. Suspect diarrhea related to
antibiotics currently on cefazolin.
Original Note:
Consultation
-
Date/Time Consultation Requested: 09/21/25 1125
Date/Time Consultation Performed: 09/21/25 1130
Requesting Provider: Justice Healy MD
Performing Provider: NANCI Cardona, Alexus Miller MD
Reason for Consultation: diarrhea
Medical History
Chief Complaint / HPI
Chief Complaint: diarrhea
History of Present Illness:
Pt is an 84yo with hx PAF not on AC, HTN, NIDDM, HFpEF, prostate CA with prior radiation, COPD on chronic O2 with recent COPD exacerbation with steroid and antibiotic course and presents 09/16 with flank pain with concern for moderate acute right
hydroureteronephrosis with 3 mm obstructing calculi at right ureterovesical junction. Pt also noted with renal cyst vs mass and large left renal cyst with bladder thickening. Pt went 09/17 for JJ stent with laguna placement. Culture data with
Ecoli UTI and bacteremia. Pt was also noted with thrombocytopenia with antibiotic use and sepsis. Asked to see for diarrhea.
In review with patient he admits to occasional loose stool prior to admission. He is now noted with liquid brown stool with incontinence of stool with feeling of stool passing when he urinates. He denies dysphagia, GERD, nausea, vomiting,
abdominal pain, blood or black in stool. Reports normal colonoscopy several years ago at [facility]. 09/16 abd X ray with moderate stool in colon without dilation.
Past Medical History
Past Medical History: Arrhythmias (PAF), Cancer (prostate CA with prior radiation ), CHF, COPD, GERD, HTN, Hypercholesterolemia, NIDDM and Other (sepsis, biliary stone, lactic acidosis, dysphagia )
Past Surgical History: Cholecystectomy
Social History
Tobacco: Smoker (10/22 PPD)
Alcohol: None
Drug: None
Living: Other (aid for assist at home )
Employment: Retired
Family History
Family History: Other (no family hx GI issues)
Allergies / Home Medications
Allergy/AdvReac Type Severity Reaction Status Date / Time
No Known Allergies Allergy Verified 09/16/25 03:08
�Medication �Instructions �Recorded
atorvastatin 40 mg tablet 40 mg PO DAILY High cholesterol 06/04/23
#30 tabs
diltiazem HCl 120 mg 120 mg PO DAILY Arrhythmia #30 caps 06/04/23
capsule,extended release 24 hr
albuterol sulfate 2.5 mg/3 mL 2.5 mg inhalation R Q6HPRN PRN 11/07/23
(0.083 %) solution for nebulization wheezing
budesonide 0.5 mg/2 mL suspension 0.5 mg inhalation R BID 05/13/24
for nebulization Lung/Breathing Issues
omeprazole 20 mg capsule,delayed 20 mg PO DAILY PRN 05/13/24
release Gastrointestinal Issue
tamsulosin 0.4 mg capsule 0.4 mg PO BID Urinary issue 05/13/24
gabapentin 100 mg capsule 100 mg PO TID Pain 07/13/25
prednisone 10 mg tablet 10 mg PO DAILY Anti-Inflammatory 07/13/25
Held on 09/14/25.
Instructions: Resume 10 mg
daily after you complete the
prednisone taper.
sodium chloride 0.65 % nasal spray 1 spray intranasal QIDPRN PRN dry 07/15/25
aerosol (Saline Nasal) nares #44 mL
acetaminophen 325 mg tablet 650 mg PO Q6H PRN pain 09/12/25
(Tylenol)
prednisone 10 mg tablet 10 mg PO DIRECTED #30 tabs 09/13/25
aspirin 81 mg chewable tablet 81 mg PO DAILY Blood Clot 09/16/25
Prevention/Tx
insulin glargine 100 unit/mL (3 5 unit SC HS Diabetes 09/16/25
mL) subcutaneous pen (Basaglar
KwikPen U-100 Insulin)
Review of Systems
-
History Source: Patient
Constitutional: Reports No Symptoms
EENT: Reports No Symptoms
Respiratory: Reports No Symptoms
Cardiac: Reports No Symptoms
Abdomen/GI: Reports Diarrhea
: Reports Frequency
Musculoskeletal: Reports No Symptoms
Skin: Reports No Symptoms
Neurological: Reports Weakness
Endocrine: Reports No Symptoms
Hematologic/Lymphatic: Reports No Symptoms
Vital Signs
Temp Pulse Resp BP Pulse Ox
97.2 F 98 16 129/73 92
09/21/25 08:28 09/21/25 09:26 09/21/25 08:28 09/21/25 09:26 09/21/25 08:28
Physical Exam
Exam
General: Well Developed, Well Nourished and No Apparent Distress
HEENT: Normocephalic and Anicteric
Cardiac: Regular Rhythm
GI: Soft, Non Tender and Non Distended
Rectal: Brown (liquid stool with incontinence of stool ), Hem Negative, Hemorrhoids (with irritation and redness on exam ) and Other (some decreased sphincter tone )
Musculoskeletal: No Clubbing and No Cyanosis
Skin: Warm and Dry
Neuro: Awake, Alert and AO x 3
Psych: Calm
Results
WBC 10.5 10^3/uL (4.8-10.8) 09/21/25 04:06
Hgb 13.0 g/dL (13.0-18.0) 09/21/25 04:06
Hct 41.4 % (39.0-52.0) 09/21/25 04:06
MCV 91.0 fL (80.0-94.0) 09/21/25 04:06
Plt Count 61 10^3/uL (130-400) L 09/21/25 04:06
Absolute Neuts (auto) 8.6 10^3/uL (1.4-6.5) H 09/21/25 04:06
PT 14.6 Sec (11.4-14.6) 09/21/25 04:06
INR 1.13 09/21/25 04:06
APTT 27.0 Sec (23.4-35.0) 09/21/25 04:06
Sodium 135 mmol/L (135-145) 09/21/25 04:06
Potassium 3.3 mmol/L (3.5-5.1) L 09/21/25 04:06
Chloride 97 mmol/L (98-107) L 09/21/25 04:06
Carbon Dioxide 39 mmol/L (22-30) H 09/21/25 04:06
BUN 15 mg/dl (9-20) 09/21/25 04:06
Creatinine 0.5 mg/dL (0.7-1.3) L 09/21/25 04:06
Calcium 8.0 mg/dl (8.4-10.2) L 09/21/25 04:06
Total Bilirubin 0.8 mg/dl (0.2-1.3) 09/21/25 04:06
AST 16 U/L (17-59) L 09/21/25 04:06
ALT 35 U/L (0-50) 09/21/25 04:06
Alkaline Phosphatase 118 U/L (38-126) 09/21/25 04:06
Diagnostic Image Results:
09/16/25 abd X ray
There is a moderate amount of stool within the colon, raising the possibility of constipation. No significantly dilated air-filled loops of bowel are identified.
On earlier CT scan, 3 mm affecting calculus was identified at the right ureterovesical junction. This calculus is not confidently identified on these radiographs, but may be difficult to visualize radiographically.
10 cm peripherally calcified mass projecting over the right upper pelvis and lower abdomen, corresponding to right renal mass seen on earlier CT scan.
Prior GI Procedures:
EGD: none
Colonoscopy: few years ago at [facility] recalls as normal
Assessment / Plan
-
Pt is an 84yo with hx PAF not on AC, HTN, NIDDM, HFpEF, prostate CA with prior radiation, COPD on chronic O2 with recent COPD exacerbation with steroid and antibiotic course and presents 09/16 with flank pain with concern for moderate acute right
hydroureteronephrosis with 3 mm obstructing calculi at right ureterovesical junction. Pt also noted with renal cyst vs mass and large left renal cyst with bladder thickening. Pt went 09/17 for JJ stent with laguna placement. Culture data with
Ecoli UTI and bacteremia. Pt was also noted with thrombocytopenia with antibiotic use and sepsis. Asked to see for diarrhea. In review with patient he admits to occasional loose stool prior to admission. He is now noted with liquid brown stool
with incontinence of stool with feeling of stool passing when he urinates. Reports normal colonoscopy several years ago at [facility]. 09/16 abd X ray with moderate stool in colon without dilation.
-diarrhea with some incontinence of stool
-09/16 X ray with moderate stool in colon
-Ecoli UTI/bacteremia/sepsis with stent placement
-rectal irritation with inflamed hemorrhoid one exam
-thrombocytopenia
-hypokalemia
other med problems:
PAF not on AC, HTN, NIDDM, HFpEF, prostate CA with prior radiation, COPD on chronic O2, tobacco abuse
PLAN:
Etiology of diarrhea related to antibiotics, higher up impaction as moderate stool on prior imaging, vs other
current rectal exam with no lower impaction but incontinence of liquid brown stool with inflamed hemorrhoids
will add Anusol suppository daily and continue local care for irritation of skin with diarrhea
will check follow up abd X ray to ensure no higher up impaction
check other stool studies for completeness to ensure no infection -- c-diff neg
t/c changing antibiotics to oral regiment when able
if X ray stable consider adding probiotics
will add low lactulose to diet to see if it helps limit volume of diarrhea
pt has been given dose of Imodium today monitor if any improvement
-
-
Thank you for consultation and allowing me to participate in the patient's care. Please call the insect control inspector GI physician during the after hours with any questions or concerns.
[2025-09-21 11:35] VITALS: BP 123/67
[2025-09-21] MEDS: LR 1000 IV (12:07)
[2025-09-21 12:19] LABS: Glucose - Point of Care 115 mg/dl (70-99)
[2025-09-21] MEDS: ANUSOL HC 25 MG RECTAL (13:55)
--- NOTE | 2025-09-21 15:55 | CM ---
Addendum entered by Desire Mosley 09/21/25 16:30:
Clinicals faxed along with OT eval to [employer]
Plan for fax PT eval once available
Original Note:
CM reviewed pt with attending- ADC tomorrow
Pt with diarrhea,placed on enhanced precautions- found to be c-diff negative
Bedside meeting with pt who is in agreement with SNF placement at [facility]
Requested updated PT/OT evals for auth- awaiting completion
[employer] auth initiated on [employer]
Plan to fax clinicals once PT/OT evals obtained
Pending Ref# [id number]
Update to SNF admissions/Maura
Pt on bipap at night, info sent via [facility]
Discharge Disposition- [facility] pending [employer] auth with bipap
[2025-09-21 16:18] VITALS: BP 109/66
[2025-09-21] MEDS: CARDIZEM PO (17:26)
[2025-09-21 17:55] LABS: Glucose - Point of Care 152 mg/dl (70-99)
[2025-09-21] MEDS: ANUSOL HC RECTAL (21:28)
[2025-09-21 22:12] VITALS: PULSE 2
[2025-09-21 22:27] LABS: Glucose - Point of Care 176 mg/dl (70-99)
[2025-09-21 23:39] VITALS: BP 129/75
[2025-09-22] MEDS: LR 1000 IV (02:08)
[2025-09-22 06:26] LABS: Hematocrit 42.0 % (39.0-52.0); Hemoglobin 13.4 g/dL (13.0-18.0); Mean Corp Hgb Conc. 31.9 g/dL (33.0-37.0); Mean Corpuscular Volume 90.9 fL (80.0-94.0); Nucleated Red Blood Cells % 0 % (-); Platelet Count 75 10^3/uL (130-400); Red Cell Dist. Width 13.5 % (11.5-14.5)
[2025-09-22 06:32] LABS: Blood Urea Nitrogen 12 mg/dl (9-20); Calcium 7.9 mg/dl (8.4-10.2); Chloride 95 mmol/L (98-107); Estimated Creatinine Clearance 81 ml/min; Glucose 92 mg/dl (70-99); Magnesium 1.5 mg/dl (1.6-2.3); Potassium 3.6 mmol/L (3.5-5.1); Sodium 134 mmol/L (135-145); eGFR > 60.00
[2025-09-22] MEDS: PULMICORT 0.5 MG INH ×2 (07:10→19:44)
[2025-09-22] MEDS: DUONEB 3 ML INH (07:11)
[2025-09-22 07:39] LABS: Carbon Dioxide 38 mmol/L (22-30)
--- NOTE | 2025-09-22 08:03 | W.PN.HOSP.TC ---
Today's Communication/Plan
-
Discharge today
Assessment / Plan
Assessment / Plan
Physical Exam
Gen-AAOx3, NAD
HEENT-NC
Neck-supple
CV-reg, +S1/S2
Lungs-clear B/L
Abd-soft, NT, ND
Ext-no edema
Musculoskeletal-no cyanosis
Skin-warm and dry
Neuro-grossly non-focal
Psych-calm, cooperative
Assessment/Plan
Septic shock in the setting of stone related sepsis with complicated UTI - shock state resolved as of 09/17
GNR bacteremia due to E. coli UTI
E. coli septic shock - sepsis complicated by HALI, obstructive uropathy - etiology of sepsis likely acute right sided pyelonephritis with associated nephrolithiasis
-Onset of sepsis evening of 09/16. Lactic acidosis due to sepsis, improved.
Septic shock resolved. Off pressors. Hemodynamically improved. Fever resolved. Leukocytosis improving.
Continue cefazolin IV, on discharge, will transition to Keflex 500 mg QID to be continued through 09/29/25
-Received stress dose steroids
-Cardizem formulation changed from long-acting to immediate release by atm technician to watch for any further hypotension.
HALI/obstructive uropathy -presentation with acute right hydroureteronephrosis, due to 3 mm obstructing calculus at the right UV junction.
Obstructing right UVJ stone -- underwent cystoscopy, right ureteral stone manipulation, emergent right ureteral stent insertion 09/17/25
Acute nephrolithiasis with 3 mm stone at right UVJ causing acute hydroureteronephrosis s/p cystoscopy with right ureteral stone ambulation and ureteral stent insertion
-Avoid NSAIDs.
-HALI resolved
-Robles catheter per urology, to come out on 09/20/25. Continue Flomax.
-I communicated, on 09/22/25, via [place] [employer], with Dr. Tushar Majano (urologist), and he said that if patient is voiding without significant complaints, then it is okay to discharge patient without Robles Catheter, since patient is retaining about 350
cc that is borderline (if the patient's retention was 400 cc to 500 cc then would definitely do Robles Catheter), but he�s pretty deconditioned with his sepsis - if going to rehab facility it might be easier to replace Robles Catheter with voiding
trial in ~1 week, but since patient is going home (and voiding urine without difficulty), then no Robles Catheter needed, and as patient becomes more ambulatory and upright, his emptying should improve
-Follow-up with Dr. Majano in 2-3 weeks for preop visit to schedule definitive outpatient stone surgery (see Update Note from 09/21/25)
New Diarrhea
- Imodium helped
- C. diff negative
- Suspected from antibiotics
- Initially diarrhea was profuse
- Continue low lactulose diet
- Probiotics
- Continue PRN Imodium 2 mg DAILY prn for diarrhea, through 09/29/25
- Appreciate GI
Inflamed Hemorrhoids
-Continue Anusol suppository daily and continue local care for irritation of skin with diarrhea
Large 7.5 cm rim-calcified right lower pole renal mass containing both cystic and solid components. Diagnostic possibilities are (1) RIGHT RENAL CELL CARCINOMA or (2) a complex right renal cyst. [as per radiologist's report on CT Abdomen/Pelvis]
10 cm peripherally calcified mass projecting over the right upper pelvis and lower abdomen, corresponding to right renal mass seen on earlier CT scan. [as per radiologist's report on Abdominal X-Ray]
Severe biliary dilatation and previous cholecystectomy. [as per radiologist's report on CT Abdomen/Pelvis]
Moderate diverticulosis in the sigmoid colon. [as per radiologist's report on CT Abdomen/Pelvis]
ACUTE SUPERIOR ENDPLATE FRACTURE of L1 with near complete vertebral body collapse. [as per radiologist's report on CT Abdomen/Pelvis]
Severe calcific atherosclerotic plaque in the thoracic aorta [as per radiologist's report on Chest X-Ray]
-The above findings needs to be followed up closely outpatient with primary care provider and urology
Acute thrombocytopenia
-Likely due to antibiotics/sepsis. No bleeding or signs of thrombosis. Appreciate hematology (see note from 09/21/25) -- no HIT testing needed.
-Recheck CBC outpatient within 3 to 5 days.
Hyponatremia
- Hyponatremia appears fairly chronic, at least since July 2025. Monitor for now.
Hypomagnesemia
- improved.
- Magnesium supplementation on discharge
- Recheck CMP, Magnesium and Phosphorus outpatient
Hypophosphatemia
-Repleted orally, resolved
Dysphagia -seen and evaluated by speech therapy. Continue with solids, thin liquids. Aspiration and reflux precautions.
Agree that patient may have underlying cognitive impairment that can be evaluated further as an outpatient.
Severe COPD without exacerbation
Respiratory distress requiring BiPAP due to significant pain from kidney stone during August 2025 to September 2025 Hospitalization
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
-recently hospitalized and discharged 09/14 for COPD exacerbation. Continue Prednisone 20 mg daily on 09/23/25 and 09/24/25, then switch to home chronic Prednisone 10 mg daily on 09/25/25.
-Continue BiPAP 15/5cmH2O with sleep and as needed during the day (i.e. with sleeping during the day)
-Continue home supplementation of oxygen and maintain SpO2 88% to 95%
-Check with your outpatient pulmonary whether you need to continue to be on Zithromax
-On discharge, continue DuoNebs Q4Hprn SOB/wheezing
-Continue home budesonide BID with prednisone
-Follow-up with pulmonary (Dr. Jesus) outpatient in October 2025
-Continue Incentive Spirometer
-Follow Aspiration Precautions
Paroxysmal atrial fibrillation
-not on chronic anticoagulation due to frequent falls. Continue Cardizem.
Essential hypertension
-stable.
-Continue Cardizem 30 mg PO QID (with holding parameters for SBP <110 mmHg and/or HR <65 bpm) in lieu of Cardizem CD 120 mg daily given episodes of lower blood pressures -- discuss with primary care physician about switching back to Cardizem CD 120
mg daily
Type 2 Diabetes Mellitus with peripheral neuropathy
Asymptomatic Hypoglycemia
- Hold Insulin on discharge given asymptomatic Hypoglycemia
- Diabetic Diet
Urinary Retention
- Patient reports that this is chronic
- Continue bladder scans protocol
Hyperlipidemia -atorvastatin.
Chronic heart failure preserved EF -stable.
History of prostate cancer
Sacrum pressure injury stage 1
-Continue wound care
DNR
On September 22, 2025, I called patient's son Justino multiple times, but he didn't answer the phone after multiple attempts, and a message kept coming on his like saying voice mailbox not setup yet. I then called patient's grandson Lloyd, and I
explained everything to him, especially the BiPAP and discharge medications; Lloyd said he will communicate with his dad Justino (patient's son) and make sure patient gets his BiPAP tonight. I made Lloyd aware that if patient does not get his BiPAP he
can go into respiratory failure and become unconscious. Lloyd said a BiPAP machine was recently delivered to patient's residence, and he can help set up the settings today.'
More than 30 minutes spent in discharge including
Final examination of the patient
Summarizing hospital stay
Instructions for continuing care to all relevant caregivers
Preparation of discharge records, prescriptions, and referral forms
Total time spent (in minutes): 45
Anticipated Discharge: Today
Subjective/Interval History
-
Date of Service: September 22, 2025
Patient was seen and examined. He denied any further significant diarrhea or any other issues/complaints.
Objective Data
-
Labs:
Laboratory Results
09/22/25
05:47
WBC 8.1
Hgb 13.4
Hct 42.0
Plt Count 75 L D
Sodium 134 L
Potassium 3.6
Chloride 95 L
Carbon Dioxide 38 H
BUN 12
Creatinine 0.5 L
Glucose 92
Calcium 7.9 L
Vital Signs:
Vital Signs
Temp Pulse Resp BP Pulse Ox
97.8 F 88 15 129/75 96
09/21/25 23:39 09/22/25 07:13 09/22/25 07:13 09/21/25 23:39 09/22/25 07:13
I&O
09/21/25 09/22/25 09/23/25
06:59 06:59 06:59
Intake Total 730 / 730 480 / 480
Output Total 1800 / 1800 1950 / 1950
Balance -1070 / -1070 -1470 / -1470
[2025-09-22 08:45] LABS: Glucose - Point of Care 87 mg/dl (70-99)
[2025-09-22 08:47] VITALS: BP 144/82
[2025-09-22] MEDS: CARDIZEM 30 MG PO ×3 (09:09→21:07)
[2025-09-22] MEDS: LOW STRENGTH ASPIRIN 81 MG PO (09:09)
[2025-09-22] MEDS: KCL 40 MEQ PO (09:09)
[2025-09-22] MEDS: VISBIOME 1 CAP PO (09:10)
[2025-09-22] MEDS: MAGNESIUM SULFATE 50 IV (09:10)
[2025-09-22] MEDS: PROTONIX 20 MG PO (09:10)
[2025-09-22] MEDS: NEUTRA-PHOS POWDER PACKET 250 MG PO ×4 (09:10→21:07)
[2025-09-22] MEDS: DELTASONE 20 MG PO (09:10)
[2025-09-22] MEDS: LIPITOR 40 MG PO (09:10)
[2025-09-22] MEDS: ANCEF 10 IV (09:10)
[2025-09-22] MEDS: FLOMAX 0.4 MG PO ×2 (09:10→20:20)
[2025-09-22] MEDS: NSS (PRESERVATIVE FREE) IV (09:10)
[2025-09-22] MEDS: IMODIUM 2 MG PO (10:06)
[2025-09-22 11:30] VITALS: BP 105/68; BP 127/75; PULSE 101; O2SAT 97
[2025-09-22 12:01] VITALS: BP 139/79
--- NOTE | 2025-09-22 12:35 | W.PN.GI.CBS2 ---
Today's Communication / Plan
-
imodium prn follow up stool cx gi signing off
Assessment / Plan
-
84-year-old male paroxysmal A-fib not anticoagulation, prostate cancer history of prior radiation, COPD on oxygen presenting with hydroureteronephrosis with stent and Robles placement. Course complicated by urosepsis. He states his been having
diarrhea since admission. Denied diarrhea prior to admission for me. He states he had innumerable bowel movements. Every time he urinates she had a bowel movement. She had an x-ray September 16 with moderate stool in the colon without dilation.
He states the diarrhea resolved after getting Imodium. Tita ordered a repeat x-ray which showed normal amount of stool in the colon. Stool culture is pending. Giardia and C. difficile are negative. Suspect diarrhea related to antibiotics
currently on cefazolin.
GI will sign off pls call with ?S or changes in pt clinical status.
Subjective
Subjective
Date of Service: September 22, 2025
diarrhea improved with imodium
Objective
Data Reviewed
Laboratory Data:
Laboratory Results
09/22/25 05:47
09/22/25 05:47
Laboratory Results
PT 14.6 Sec (11.4-14.6) 09/21/25 04:06
INR 1.13 09/21/25 04:06
APTT 27.0 Sec (23.4-35.0) 09/21/25 04:06
Phosphorus 3.2 mg/dl (2.5-4.5) 09/22/25 05:47
Magnesium 1.5 mg/dl (1.6-2.3) L 09/22/25 05:47
Total Bilirubin 0.8 mg/dl (0.2-1.3) 09/21/25 04:06
AST 16 U/L (17-59) L 09/21/25 04:06
ALT 35 U/L (0-50) 09/21/25 04:06
Alkaline Phosphatase 118 U/L (38-126) 09/21/25 04:06
Vital Signs and I&O:
Vital Signs
Temp Pulse Resp BP Pulse Ox
98.5 F 102 16 139/79 93
09/22/25 12:01 09/22/25 12:01 09/22/25 12:01 09/22/25 12:01 09/22/25 12:01
I&O
09/21/25 09/22/25 09/23/25
06:59 06:59 06:59
Intake Total 730 / 730 480 / 480
Output Total 1800 / 1800 1950 / 1950 675 / 675
Balance -1070 / -1070 -1470 / -1470 -675 / -675
Physical Exam
Physical Exam
GI: Non Distended and Non Tender
[2025-09-22 13:21] LABS: Glucose - Point of Care 117 mg/dl (70-99)
--- NOTE | 2025-09-22 13:36 | CM ---
Addendum entered by Elina Hendrix 09/22/25 14:35:
RACHEL Antoine unaware of the need for BIPAP when took over this case today until last note.
[facility] at 3pm. So called the grandson Lloyd who spoke to our Hospital and found out that the machine at home (the patient is referring to) was delivered last year (unsure
if CPAP or BIPAP), no one has the settings, the set up for that RT was not performed well, and the mask does not fit. The grandson (Lloyd) lives in [place] who assisted last year with the machine in question at home and the son never (Oscar) never
supported the patient. Hence, that patient has no machine to use.
Hospitalist will let the patient know that he cannot leave until tomorrow morning at the earliest, but needs to be home by 2pm. [facility] will deliver BIPAP by 3pm tomorrow and grandbartolo Desai will talk to his father to assist with transport home in the
AM. Patient is not refuse this BIPAP this time (like he did on 09/15 from [facility]). PLAN: Home tomorrow (09/22) with BIPAP being delivered.
Original Note:
F/U: PT evaluated the patient and stated that he is supervision, really for Home PT if he needs this. RACHEL Antoine saw the notes from the last 2 days and recall this patient when he was admitted. CM met with patient who refused [facility] and also refused
Home PT/ VN. CM learned about him needing BIPAP, patient says it is at home, then [facility] (liaison) said it was not delivered, but then Hospitalist spoke to the grandson who said it was delivered. Ultimately, it appears that the patient will or has
it so patient can discharge. IMM completed. [facility] informed of the change in plan. PLAN: Home No Needs- has BIPAP Machine Now.
--- NOTE | 2025-09-22 14:30 | WOUNDNOTE ---
WOC RN note: t/c Spoke with nurse Lucio who stated Emilio Gonzalez's sacrum is blanchable red (not a stage 1 pressure injury) and Lucio will give patient barrier ointment for sacrum for home use and she will instruct patient to take the air chair cushion
home. Updated Dr. Healy re: nurse's skin assessment, no need for WOC RN consult. Dr. Healy requested local skin care instructions in the discharge instructions. Discharge instructions updated. Call if needed.
[2025-09-22] MEDS: LR IV (15:02)
--- NOTE | 2025-09-22 15:06 | W.PN.UPDATE ---
Update Note
Progress Note Update
Per my [place] [employer] communication today, with caser in Elina Hendrix: Elina got a text message from the BiPAP company, [employer] who is going to deliver the BiPAP machine and it will be delivered tomorrow (September 23, 2025) at 3 PM. Elina spoke
to patient's grandson and got more clarification on the machine that�s in the home; the grandson does not know if it�s a CPAP or BiPAP, but said it was delivered last year, that he (the grandson) nor his father (grandson's father) has settings and
that the mask was small. Hence, at this point, the patient does not have any machine to use at home and that no one can set up for him or show him. Grandbartolo lives in [place].
Since patient does not have a confirmed reliable and functioning BiPAP at home (as above), and given his high risk for respiratory failure with hypercapnic and hypoxic respiratory failure, it is not safe to discharge patient today.
[2025-09-22 15:44] VITALS: BP 113/62
[2025-09-22] MEDS: KEFLEX 500 MG PO ×2 (17:07→21:07)
[2025-09-22] MEDS: CARDIZEM PO (17:12)
[2025-09-22 18:12] LABS: Glucose - Point of Care 165 mg/dl (70-99)
[2025-09-22 21:23] LABS: Glucose - Point of Care 265 mg/dl (70-99)
[2025-09-22] MEDS: ANUSOL HC RECTAL (21:28)
[2025-09-22] MEDS: ANUSOL HC 25 MG RECTAL (21:28)
[2025-09-22 23:16] VITALS: BP 124/70
[2025-09-23 04:58] VITALS: BMI 19.9
[2025-09-23 06:50] LABS: Blood Urea Nitrogen 16 mg/dl (9-20); Calcium 7.8 mg/dl (8.4-10.2); Carbon Dioxide 38 mmol/L (22-30); Chloride 97 mmol/L (98-107); Estimated Creatinine Clearance 78 ml/min; Glucose 104 mg/dl (70-99); Magnesium 1.9 mg/dl (1.6-2.3); Potassium 4.0 mmol/L (3.5-5.1); Sodium 133 mmol/L (135-145); eGFR > 60.00
[2025-09-23 07:00] VITALS: BP 132/55
--- NOTE | 2025-09-23 07:34 | W.PN.HOSP.TC ---
Today's Communication/Plan
-
Discharge today
Assessment / Plan
Assessment / Plan
Physical Exam
Gen-AAOx3, NAD
HEENT-NC
Neck-supple
CV-reg, +S1/S2
Lungs-clear B/L
Abd-soft, NT, ND
Ext-no edema
Musculoskeletal-no cyanosis
Skin-warm and dry
Neuro-grossly non-focal
Psych-calm, cooperative
Assessment/Plan
Septic shock in the setting of stone related sepsis with complicated UTI - shock state resolved as of 09/17
GNR bacteremia due to E. coli UTI
E. coli septic shock - sepsis complicated by HALI, obstructive uropathy - etiology of sepsis likely acute right sided pyelonephritis with associated nephrolithiasis
-Onset of sepsis evening of 09/16. Lactic acidosis due to sepsis, improved.
Septic shock resolved. Off pressors. Hemodynamically improved. Fever resolved. Leukocytosis improving.
Continue cefazolin IV, on discharge, continue Keflex 500 mg QID to be continued through 09/29/25
-Received stress dose steroids
-Cardizem formulation changed from long-acting to immediate release by art objects salesperson to watch for any further hypotension.
HALI/obstructive uropathy -presentation with acute right hydroureteronephrosis, due to 3 mm obstructing calculus at the right UV junction.
Obstructing right UVJ stone -- underwent cystoscopy, right ureteral stone manipulation, emergent right ureteral stent insertion 09/17/25
Acute nephrolithiasis with 3 mm stone at right UVJ causing acute hydroureteronephrosis s/p cystoscopy with right ureteral stone ambulation and ureteral stent insertion
-Avoid NSAIDs.
-HALI resolved
-Robles catheter per urology, to come out on 09/20/25. Continue Flomax.
-I communicated, on 09/22/25, via [place] [employer], with Dr. Tushar Majano (urologist), and he said that if patient is voiding without significant complaints, then it is okay to discharge patient without Robles Catheter, since patient is retaining about 350
cc that is borderline (if the patient's retention was 400 cc to 500 cc then would definitely do Robles Catheter), but he�s pretty deconditioned with his sepsis - if going to rehab facility it might be easier to replace Robles Catheter with voiding
trial in ~1 week, but since patient is going home (and voiding urine without difficulty), then no Robles Catheter needed, and as patient becomes more ambulatory and upright, his emptying should improve
-Follow-up with Dr. Majano in 2-3 weeks for preop visit to schedule definitive outpatient stone surgery (see Update Note from 09/21/25)
New Diarrhea
- Imodium helped
- C. diff negative
- Suspected from antibiotics
- Initially diarrhea was profuse
- Continue Diabetic Diet with thin liquids and low lactose diet modifiers
- Probiotics
- Continue PRN Imodium 2 mg DAILY prn for diarrhea, through 09/29/25
- Appreciate GI
Inflamed Hemorrhoids
-Continue Anusol suppository daily and continue local care for irritation of skin with diarrhea
Large 7.5 cm rim-calcified right lower pole renal mass containing both cystic and solid components. Diagnostic possibilities are (1) RIGHT RENAL CELL CARCINOMA or (2) a complex right renal cyst. [as per radiologist's report on CT Abdomen/Pelvis]
10 cm peripherally calcified mass projecting over the right upper pelvis and lower abdomen, corresponding to right renal mass seen on earlier CT scan. [as per radiologist's report on Abdominal X-Ray]
Severe biliary dilatation and previous cholecystectomy. [as per radiologist's report on CT Abdomen/Pelvis]
Moderate diverticulosis in the sigmoid colon. [as per radiologist's report on CT Abdomen/Pelvis]
ACUTE SUPERIOR ENDPLATE FRACTURE of L1 with near complete vertebral body collapse. [as per radiologist's report on CT Abdomen/Pelvis]
Severe calcific atherosclerotic plaque in the thoracic aorta [as per radiologist's report on Chest X-Ray]
-The above findings needs to be followed up closely outpatient with primary care provider and urology
Acute thrombocytopenia
-Likely due to antibiotics/sepsis. No bleeding or signs of thrombosis. Appreciate hematology (see note from 09/21/25) -- no HIT testing needed.
-Recheck CBC outpatient within 3 to 5 days.
Hyponatremia
- Hyponatremia appears fairly chronic, at least since July 2025. Monitor for now.
Hypomagnesemia
- improved.
- Magnesium supplementation on discharge
- Recheck CMP, Magnesium and Phosphorus outpatient
Hypophosphatemia
-Repleted orally, resolved
Dysphagia -seen and evaluated by speech therapy. Continue with solids, thin liquids. Aspiration & reflux precautions: HOB upright during PO intake and for at least 60 minutes after PO intake; small bites/sips; slow intake rate; discontinue PO
intake if pt is in respiratory distress.
Agree that patient may have underlying cognitive impairment that can be evaluated further as an outpatient.
Severe COPD without exacerbation
Respiratory distress requiring BiPAP due to significant pain from kidney stone during August 2025 to September 2025 Hospitalization
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
-recently hospitalized and discharged 09/14 for COPD exacerbation. Continue Prednisone 20 mg daily on 09/23/25 and 09/24/25, then switch to home chronic Prednisone 10 mg daily on 09/25/25.
-Continue BiPAP 15/5cmH2O with sleep and as needed during the day (i.e. with sleeping during the day)
-Continue home supplementation of oxygen and maintain SpO2 88% to 95%
-Check with your outpatient pulmonary whether you need to continue to be on Zithromax
-On discharge, continue DuoNebs Q4Hprn SOB/wheezing
-Continue home budesonide BID with prednisone
-Follow-up with pulmonary (Dr. Jesus) outpatient in October 2025
-Continue Incentive Spirometer
-Follow Aspiration Precautions
Paroxysmal atrial fibrillation
-not on chronic anticoagulation due to frequent falls. Continue Cardizem.
Essential hypertension
-stable.
-Continue Cardizem 30 mg PO QID (with holding parameters for SBP <110 mmHg and/or HR <65 bpm) in lieu of Cardizem CD 120 mg daily given episodes of lower blood pressures -- discuss with primary care physician about switching back to Cardizem CD 120
mg daily
Type 2 Diabetes Mellitus with peripheral neuropathy
Asymptomatic Hypoglycemia
- Hold Insulin on discharge given asymptomatic Hypoglycemia
- Diabetic Diet
Urinary Retention
- Patient reports that this is chronic
- Continue bladder scans protocol
Hyperlipidemia -atorvastatin.
Chronic heart failure preserved EF -stable.
History of prostate cancer with history of prior radiation
Sacrum pressure injury stage 1
-Continue wound care
DNR
On September 22, 2025, I called patient's son Justino multiple times, but he didn't answer the phone after multiple attempts, and a message kept coming on his like saying voice mailbox not setup yet. I then called patient's grandson Lloyd, and I
explained everything to him, especially the BiPAP and discharge medications; Lloyd said he will communicate with his dad Justino (patient's son) and make sure patient gets his BiPAP tonight. I made Lloyd aware that if patient does not get his BiPAP he
can go into respiratory failure and become unconscious, and Lloyd understood. Imaging Analyst Elina got a text message from the [employer] who is going to deliver the BiPAP machine and it will be delivered on September 23, 2025 around 3 PM.
Elina spoke to patient's grandson and got more clarification on the machine that�s in the home; the grandson does not know if it�s a CPAP or BiPAP, but said it was delivered last year, that he (the grandson) nor his father (grandson's father) has
settings and that the mask was small. On September 23, 2025, patient's son Justino called and stated he is meeting with someone to place BiPAP at patient's apartment on September 23, 2025.
More than 30 minutes spent in discharge including
Final examination of the patient
Summarizing hospital stay
Instructions for continuing care to all relevant caregivers
Preparation of discharge records, prescriptions, and referral forms
Total time spent (in minutes): 40
Anticipated Discharge: Today
Subjective/Interval History
-
Date of Service: September 23, 2025
Patient was seen and examined. He stated that he is feeling good today, he denied fever or any other new symptoms or complaints. He stated that he would like to go home today.
Objective Data
-
Labs:
Laboratory Results
09/23/25
05:53
Sodium 133 L
Potassium 4.0
Chloride 97 L
Carbon Dioxide 38 H
BUN 16
Creatinine 0.5 L
Glucose 104 H
Calcium 7.8 L
Vital Signs:
Vital Signs
Temp Pulse Resp BP Pulse Ox
97.5 F 80 16 124/70 96
09/22/25 23:16 09/22/25 23:16 09/22/25 23:16 09/22/25 23:16 09/22/25 23:16
I&O
09/22/25 09/23/25 09/24/25
06:59 06:59 06:59
Intake Total 480 / 480 980 / 980
Output Total 1949 / 1949 1874 / 1874
Balance -1470 / -1470 -895 / -895
[2025-09-23] MEDS: PULMICORT 0.5 MG INH (07:40)
[2025-09-23] MEDS: DUONEB 3 ML INH (07:44)
[2025-09-23 08:18] LABS: Glucose - Point of Care 108 mg/dl (70-99)
[2025-09-23 08:19] LABS: Albumin 2.7 g/dl (3.5-5.0)
[2025-09-23] MEDS: NEUTRA-PHOS POWDER PACKET 250 MG PO ×2 (09:10→13:12)
[2025-09-23] MEDS: LIPITOR 40 MG PO (09:10)
[2025-09-23] MEDS: PROTONIX 20 MG PO (09:10)
[2025-09-23] MEDS: KEFLEX 500 MG PO ×2 (09:10→13:12)
[2025-09-23] MEDS: DELTASONE 20 MG PO (09:10)
[2025-09-23] MEDS: LOW STRENGTH ASPIRIN 81 MG PO (09:10)
[2025-09-23] MEDS: NSS (PRESERVATIVE FREE) IV (09:11)
[2025-09-23] MEDS: CARDIZEM CD 120 MG PO (09:11)
[2025-09-23] MEDS: FLOMAX 0.4 MG PO (09:11)
[2025-09-23] MEDS: VISBIOME 1 CAP PO (09:12)
[2025-09-23] MEDS: NEURONTIN 100 MG PO (12:01)
[2025-09-23 15:09] VITALS: BP 139/78
--- NOTE | 2025-09-23 15:13 | CM ---
left VM at [facility] to confirm BIPAP to house today. 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
== END 2025-09-23 15:00 | disposition home or self-care (01) | DRG 853 ==
LOC: 2 NORTH 08:18
PROVIDERS: Hospitalist; Nurse Practitioner Gerontology; Radiology Diagnostic Radiology; Surgery; ADMITTING PHYSICIAN Internal Medicine; ATTENDING PHYSICIAN Hospitalist; CONSULT PHYSICIAN Internal Medicine Critical Care Medicine; CONSULT PHYSICIAN Internal Medicine Gastroenterology; EMERGENCY PHYSICIAN Emergency Medicine; OTHER PHYSICIAN Internal Medicine Hematology & Oncology
PROC: 5A09357 Assistance with Respiratory Ventilation, Less than 24 Consecutive Hours, Continuous Positive Airway Pressure (ICD-10-PCS; 2025-09-16)
PROC: 0T768DZ Dilation of Right Ureter with Intraluminal Device, Via Natural or Artificial Opening Endoscopic (ICD-10-PCS; 2025-09-16)
PROC: 02HV33Z Insertion of Infusion Device into Superior Vena Cava, Percutaneous Approach (ICD-10-PCS; 2025-09-17)
DX: A41.51 Sepsis due to Escherichia coli [E. coli] (principal); J96.21 Acute and chronic respiratory failure with hypoxia; J96.22 Acute and chronic respiratory failure with hypercapnia; R65.21 Severe sepsis with septic shock; N13.6 Pyonephrosis; M48.56XA Collapsed vertebra, not elsewhere classified, lumbar region, initial encounter for fracture; J44.1 Chronic obstructive pulmonary disease with (acute) exacerbation; I50.32 Chronic diastolic (congestive) heart failure; E87.29 Other acidosis; N17.9 Acute kidney failure, unspecified; E87.20 Acidosis, unspecified; E87.1 Hypo-osmolality and hyponatremia; Z16.24 Resistance to multiple antibiotics; K52.1 Toxic gastroenteritis and colitis; J43.9 Emphysema, unspecified; I95.9 Hypotension, unspecified; E11.649 Type 2 diabetes mellitus with hypoglycemia without coma; D69.6 Thrombocytopenia, unspecified; E83.42 Hypomagnesemia; R33.9 Retention of urine, unspecified; T36.1X5A Adverse effect of cephalosporins and other beta-lactam antibiotics, initial encounter; Y92.239 Unspecified place in hospital as the place of occurrence of the external cause; E83.39 Other disorders of phosphorus metabolism; K64.9 Unspecified hemorrhoids; L89.151 Pressure ulcer of sacral region, stage 1; R15.9 Full incontinence of feces; E87.6 Hypokalemia; N28.89 Other specified disorders of kidney and ureter; I48.0 Paroxysmal atrial fibrillation; R13.10 Dysphagia, unspecified; K21.9 Gastro-esophageal reflux disease without esophagitis; F17.210 Nicotine dependence, cigarettes, uncomplicated; E78.00 Pure hypercholesterolemia, unspecified; R29.6 Repeated falls; I11.0 Hypertensive heart disease with heart failure; E11.42 Type 2 diabetes mellitus with diabetic polyneuropathy; K57.30 Diverticulosis of large intestine without perforation or abscess without bleeding; Z60.2 Problems related to living alone; Z66 Do not resuscitate; Z99.81 Dependence on supplemental oxygen; Z86.16 Personal history of COVID-19; Z87.01 Personal history of pneumonia (recurrent); Z90.49 Acquired absence of other specified parts of digestive tract; Z79.82 Long term (current) use of aspirin; Z79.51 Long term (current) use of inhaled steroids; Z79.52 Long term (current) use of systemic steroids; Z79.4 Long term (current) use of insulin; Z85.46 Personal history of malignant neoplasm of prostate; Z87.442 Personal history of urinary calculi; Z11.52 Encounter for screening for COVID-19; Z79.899 Other long term (current) drug therapy; Z87.440 Personal history of urinary (tract) infections; Z92.3 Personal history of irradiation
CPT/HCPCS: 51701; 71045; 74018; 74176; 76000; 80048; 80053; 81003; 81015; 82040; 82805; 82962; 83605; 83615; 83735; 84100; 85025; 85027; 85045; 85610; 85730; 87040; 87045; 87046; 87077; 87086; 87154; 87186; 87205; 87324; 87328; 87329; 87427; 87449; 87502; 87811; 89055; 92526; 92610; 93005; 94640; 94660; 96374; 96375; 97162; 97166; 97530; 97535; 99285

== ENCOUNTER 2025-09-30 13:51 | Inpatient (IN) | payer OTHER, SELFPAY ==
[2025-09-30] VITALS (10 sets, daily range): BP systolic 105–150; BP diastolic 60–89; BMI 21.0; BMI 20.2
--- NOTE | 2025-09-30 09:55 | ED.GENMED ---
History of Present Illness
<NANCI Wang - Last Filed: 09/30/25 12:54>
General
Chief Complaint: Weakness
Source: patient and ambulance crew
Exam Limitations: none
Time Seen by Provider: 09/30/25 09:36
Nursing documentation reviewed up to this point in time: agreed with except (Shingles is not new)
History of Present Illness
History of Present Illness:
Patient is a 84-year-old mal with past medical history of COPD A-fib not anticoagulated CHF hypertension hyperlipidemia smoker who is brought by EMS. Patient reports he lives at [facility] by himself. He apparently was found on the floor by
family.. Patient presents awake able to state his name and answer questions mildly confused to year month. He is not able to recall what happened. He reports drinking he denies any pain. He does admit to feeling tired.
He reports he is a smoker and on home O2.
Patient was recently admitted and discharged September 23 as per previous medical records . He was admitted for septic shock in setting of renal stone related sepsis complicated UTI. At time he had HALI well. He was not discharged with Robles
catheter. CAT scan also showed right lower pole renal mass. He was found to have acute thrombocytopenia at that time he was hyponatremic as well. 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 He is also( not anticoagulated due to
frequent falls) on Cardizem for A-fib. Pt was discharged on BIPAP. Is unclear if patient has been using BiPAP
Past History
<NANCI Wang - Last Filed: 09/30/25 12:54>
Past History
ED Past Medical History: Cancer, COPD, HTN, Hypercholesterolemia, NIDDM and Other (COVID pneumonitis January 2022)
ED Past Surgical History: Cholecystectomy and Urological
Social History
Tobacco: Former smoker
Alcohol: None
Personal:
Living: alone
Employment: Retired
Family History
Family History: Other (Noncontributory)
Phy Exam
<NANCI Wang - Last Filed: 09/30/25 12:54>
General Physical Exam
General Presentation: no apparent distress
General age: appears stated age
General Skin: warm
General Mental: alert
General Hydration: dry mucous membranes
Cardiovascular Exam
Cardiovascular Exam: regular rate/rhythm and tachycardia
Pulmonary Exam
Pulmonary Exam: no respiratory distress, chest non tender and other (Decreased throughout)
Gastrointestinal Exam
Gastrointestinal Exam: non tender and soft
Neurological Exam
Neurological Exam: alert and oriented x3
Musculoskeletal Exam
Musculoskeletal Exam: other (Bilateral lower extremity swelling)
Skin Exam
Skin Exam: normal color and warm/dry
Psychiatric Exam
Psychiatric Exam: normal mood/affect
Course
<NANCI Wang - Last Filed: 09/30/25 12:54>
Orders/Labs/Results
Orders:
Orders
09/30/25 09:48
Electrocardiogram (*1) Urgent
Reason for Study: Tachycardia
EKG- Treatment ONCE
09/30/25 09:50
CT Cervical Spine W/o Iv Contr Urgent
Comment:
Reason For Exam: trauma
CT Head W/o Iv Contrast Urgent
Comment:
Reason For Exam: trauma
09/30/25 09:51
IV Insert/Care/Rem.- Treatment PRN
09/30/25 09:53
Cardiac Monitoring- Treatment ONCE
EKG- Treatment ONCE
09/30/25 09:56
COVID-19 Antigen Urgent
Source: Nasal Swab
Complete Blood Count/With Diff Urgent
Comprehensive Metabolic Panel Urgent
Creatine Phosphokinase Urgent
Comment: CPK ADDED ON BY FLOOR 10:30AM 09-30-25
NT-proBNP Urgent
Troponin I Urgent
Influenza A+B Rapid Molecular Urgent
KRISTEN Source: Nasal Swab
Specimen Description:
09/30/25 10:05
CT Chest PE Study Urgent
Comment:
Reason For Exam: sob
09/30/25 10:11
Albuterol Nebs [Ventolin Nebules] 2.5 mg INH R NOW STA
Portable Chest Xray [CR Chest Portable - 1 View] Urgent
Comment:
Reason For Exam: sob
Reason Study Needs to be Portable: Unable to Transport
09/30/25 10:12
Bladder Scan- Treatment ONCE
Straight cath- Treatment ONCE
UA Reflex to Culture [Urinalysis Reflex To Culture] Urgent
0.9% Sodium Chloride 500 ml [Nss] 500 ml IV BOLUS
09/30/25 10:33
Lactic Acid Q4H
Comment: CANCEL 2nd LACTIC ACID IF 1st LACTIC ACID IS LESS THAN 2
Blood Culture Q30M
KRISTEN Source: Blood/Venous
Specimen Description:
09/30/25 10:35
CPK [Creatine Phosphokinase] Urgent
Blood Culture Q30M
KRISTEN Source: Blood/Venous
Specimen Description:
09/30/25 10:37
Add On- LAB Urgent
Tests Added?: CPK
09/30/25 10:44
Venous Blood Gas Urgent
%Oxygen/Room Air: 86%
09/30/25 11:03
Dexamethasone Sod Phosphate [Decadron] 10 mg IV NOW STA
09/30/25 14:15
Lactic Acid Q4H
Comment: CANCEL 2nd LACTIC ACID IF 1st LACTIC ACID IS LESS THAN 2
Abnormal Lab Results
09/30/25 09/30/25
09:56 10:44
WBC 12.1 H 10^3/uL
(4.8-10.8)
MCV 97.5 H fL
(80.0-94.0)
MCHC 29.2 L g/dL
(33.0-37.0)
Abs Immat Gran (auto) 0.2 H 10^3/uL
(0-0.05)
Absolute Neuts (auto) 9.9 H 10^3/uL
(1.4-6.5)
Absolute Lymphs (auto) 0.9 L 10^3/uL
(1.2-3.4)
Absolute Monos (auto) 1.1 H 10^3/uL
(0.1-0.6)
Immature Gran % 1.3 H %
(0-0.5)
Neutrophils % 82.1 H %
(42.2-75.2)
Lymphocytes % 7.0 L %
(20.5-51.1)
VBG pCO2 63 H mmHg
(35-48)
VBG pO2 92 H mmHg
(30-50)
VBG HCO3 40.9 H mmol/L
(22-27)
Sodium 134 L mmol/L
(135-145)
Chloride 91 L mmol/L
(98-107)
Carbon Dioxide 37 H mmol/L
(22-30)
Creatinine 0.6 L mg/dL
(0.7-1.3)
Glucose 110 H mg/dl
(70-99)
Total Bilirubin 1.6 H mg/dl
(0.2-1.3)
Creatine Kinase 21 L U/L
(55-170)
Total Protein 5.7 L g/dl
(6.3-8.2)
Albumin 3.3 L g/dl
(3.5-5.0)
09/30/25 09:56
09/30/25 09:56
Vital Signs
Initial and Last Documented VS:
Initial Vital Signs
Temp Pulse Resp BP Pulse Ox
98.2 F 123 22 126/70 91
09/30/25 09:32 09/30/25 09:32 09/30/25 09:32 09/30/25 09:32 09/30/25 09:32
Last Documented Vital Signs
Temp Pulse Resp BP Pulse Ox
98.2 F 107 18 120/60 90
09/30/25 09:32 09/30/25 12:00 09/30/25 12:06 09/30/25 12:00 09/30/25 12:00
Attraction Worker consulted with Physician
Attraction Worker consulted with physician?: Yes
Name of Physician Consulted: Mee
<Santos Caban MD - Last Filed: 09/30/25 10:39>
Orders/Labs/Results
Orders:
Orders
09/30/25 09:48
Electrocardiogram (*1) Urgent
Reason for Study: Tachycardia
EKG- Treatment ONCE
09/30/25 09:50
CT Cervical Spine W/o Iv Contr Urgent
Comment:
Reason For Exam: trauma
CT Head W/o Iv Contrast Urgent
Comment:
Reason For Exam: trauma
09/30/25 09:51
IV Insert/Care/Rem.- Treatment PRN
09/30/25 09:53
Cardiac Monitoring- Treatment ONCE
EKG- Treatment ONCE
09/30/25 09:56
COVID-19 Antigen Urgent
Source: Nasal Swab
Complete Blood Count/With Diff Urgent
Comprehensive Metabolic Panel Urgent
Creatine Phosphokinase Urgent
Comment: CPK ADDED ON BY FLOOR 10:30AM 09-30-25
NT-proBNP Urgent
Troponin I Urgent
Influenza A+B Rapid Molecular Urgent
KRISTEN Source: Nasal Swab
Specimen Description:
09/30/25 10:05
CT Chest PE Study Urgent
Comment:
Reason For Exam: sob
09/30/25 10:11
Albuterol Nebs [Ventolin Nebules] 2.5 mg INH R NOW STA
Portable Chest Xray [CR Chest Portable - 1 View] Urgent
Comment:
Reason For Exam: sob
Reason Study Needs to be Portable: Unable to Transport
09/30/25 10:12
Bladder Scan- Treatment ONCE
Straight cath- Treatment ONCE
UA Reflex to Culture [Urinalysis Reflex To Culture] Urgent
0.9% Sodium Chloride 500 ml [Nss] 500 ml IV BOLUS
09/30/25 10:33
Lactic Acid Q4H
Comment: CANCEL 2nd LACTIC ACID IF 1st LACTIC ACID IS LESS THAN 2
Blood Culture Q30M
KRISTEN Source: Blood/Venous
Specimen Description:
09/30/25 10:35
CPK [Creatine Phosphokinase] Urgent
Blood Culture Q30M
KRISTEN Source: Blood/Venous
Specimen Description:
09/30/25 10:37
Add On- LAB Urgent
Tests Added?: CPK
09/30/25 10:44
Venous Blood Gas Urgent
%Oxygen/Room Air: 86%
09/30/25 11:03
Dexamethasone Sod Phosphate [Decadron] 10 mg IV NOW STA
09/30/25 14:15
Lactic Acid Q4H
Comment: CANCEL 2nd LACTIC ACID IF 1st LACTIC ACID IS LESS THAN 2
Abnormal Lab Results
09/30/25 09/30/25
09:56 10:44
WBC 12.1 H 10^3/uL
(4.8-10.8)
MCV 97.5 H fL
(80.0-94.0)
MCHC 29.2 L g/dL
(33.0-37.0)
Abs Immat Gran (auto) 0.2 H 10^3/uL
(0-0.05)
Absolute Neuts (auto) 9.9 H 10^3/uL
(1.4-6.5)
Absolute Lymphs (auto) 0.9 L 10^3/uL
(1.2-3.4)
Absolute Monos (auto) 1.1 H 10^3/uL
(0.1-0.6)
Immature Gran % 1.3 H %
(0-0.5)
Neutrophils % 82.1 H %
(42.2-75.2)
Lymphocytes % 7.0 L %
(20.5-51.1)
VBG pCO2 63 H mmHg
(35-48)
VBG pO2 92 H mmHg
(30-50)
VBG HCO3 40.9 H mmol/L
(22-27)
Sodium 134 L mmol/L
(135-145)
Chloride 91 L mmol/L
(98-107)
Carbon Dioxide 37 H mmol/L
(22-30)
Creatinine 0.6 L mg/dL
(0.7-1.3)
Glucose 110 H mg/dl
(70-99)
Total Bilirubin 1.6 H mg/dl
(0.2-1.3)
Creatine Kinase 21 L U/L
(55-170)
Total Protein 5.7 L g/dl
(6.3-8.2)
Albumin 3.3 L g/dl
(3.5-5.0)
09/30/25 09:56
09/30/25 09:56
Vital Signs
Initial and Last Documented VS:
Initial Vital Signs
Temp Pulse Resp BP Pulse Ox
98.2 F 123 22 126/70 91
09/30/25 09:32 09/30/25 09:32 09/30/25 09:32 09/30/25 09:32 09/30/25 09:32
Last Documented Vital Signs
Temp Pulse Resp BP Pulse Ox
98.2 F 107 18 120/60 90
09/30/25 09:32 09/30/25 12:00 09/30/25 12:06 09/30/25 12:00 09/30/25 12:00
<NANCI Wang - Last Filed: 09/30/25 12:54>
MDM/Problems Addressed
MDM/Problems Addressed:
Patient is an 84-year-old male found on the floor by family. As documented patient was recently admitted for septic shock related to UTI with kidney stone questionable renal mass. Patient does have a history of COPD is O2 dependent also supposed
to have BiPAP at night. He presented to the ER hypoxic decreased breath sounds throughout. Patient was given a neb which did improve patient's oxygenation. He however was in no acute distress. He is afebrile white count mildly elevated 12.1. He
has normal kidney function. Patient was given steroids. He is not anticoagulated has a history of A-fib therefore with tachycardia CT PE study was done and negative. CT of the head and cervical spine were done because of trauma and negative.
Patient will require admission for hypoxia including nebs and steroids and continue close monitoring.
<NANCI Wang - Last Filed: 09/30/25 12:54>
*Radiology
Radiology exam reviewed: radiology read reviewed
*Pulse Oximetry
SaO2: 91
Nasal Cannula flow liters per minute: 2
Patient hypoxic: yes
*EKG
Interpreted by ED Provider?: Yes
Heart Rate: 114
Rhythm: sinus tachycardia
*Critical Care Note
Total Time (30-74mins, 75-104mins- exclusive of procedures): Not Applicable
ED Attending Note
<NANCI Wang - Last Filed: 09/30/25 12:54>
-
Portions of this chart may have been created with voice recognition software.� Occasional wrong word or��sound alike� substitutions may have occurred due to the inherent limitations of voice recognition software.
<Santos Caban MD - Last Filed: 09/30/25 10:39>
ED Attending Note
Patient seen and examined by attending physician: Yes
ED Attending Note:
I have seen and evaluated the patient with a [id number] encounter. I have spoken to the advance practicer provider and involved in the medical history, the physical exam, medical decision making.
Evaluation and management service: agree unless noted differently below.
Results interpretation: agree unless noted differently below.
Focused HPI: 84-year-old male with history of COPD, chronic respiratory failure on home oxygen, hypertension, hyperlipidemia, CHF, atrial fibrillation, diabetes who presents to the emergency department for evaluation of after a fall. Patient
currently lives independently in an apartment. He says that he had a home supervisor visit this morning and found on the ground. EMS was called to bring to the hospital. Patient says that he cannot recall falling down�he remembers going to bed last
night but does not member getting up or falling. He has had multiple falls recently and has some scrapes on his upper arms bilaterally from a fall last week he says. He denies any injuries from fall today�denies headache, neck pain, back pain,
chest pain, pain in the extremities. He was noted to be hypoxic on arrival�he denies feeling short of breath here, is supposed to be on home oxygen but is not sure whether he was on it while laying on the ground. He is not sure how long he was
laying on the ground. Of note, patient had recent hospitalization for septic shock secondary to complicated UTI with E. coli bacteremia. Discharged on Keflex course completed 09/29.
Physical exam: Patient is awake and alert, oriented x 3. He is tachycardic, tachypneic, hypoxic. No fever. He has bilateral wheezing with diminished breath sounds bilaterally. No accessory muscle use. Ostensibly regular rhythm on cardiac
auscultation with no appreciable murmurs. He does have bilateral left greater than right edema in the legs but mucous membranes appears dry, skin appears dry. His head appears atraumatic he has no tenderness in the cervical spine. He has no signs
of trauma to the back or flank and no tenderness in the thoracic or lumbar spine or in the posterior ribs. He has no anterior chest wall or sternal tenderness and no bruising or crepitus. He has no abdominal tenderness. He has abrasion to the
left upper extremity which appears old and some old bruising to the right upper extremity; no signs of acute trauma to the extremities. He he has chronic pain in the left forearm status post shingles but no other reproducible tenderness in the
extremities.
Medical Decision Makin-year-old male presents for evaluation after being found down�recent complicated hospitalization for UTI and bacteremia/sepsis. Denies any acute injuries from his fall, cannot recall circumstances of fall or how long he
was on the ground. Noted to be tachycardic, tachypneic and hypoxic on arrival here. He is on chronic home oxygen unclear whether this was off of him while on the ground or how long it may have been off. He was placed on nasal cannula initially
followed by nonrebreather with improvement in oxygenation�de-escalate as able. Plan to place large-bore IV send labs including CBC and a CMP, lactate and blood cultures, troponin, proBNP. Swab for COVID and flu. Check stat chest x-ray�if negative
would err toward CT chest given hypoxia, tachycardia and tachypnea with recent hospitalization. Will check CT to head and cervical spine as well. Will treat with DuoNeb and steroids as he does have history of COPD and wheezing on exam. Will check
venous blood gas. Monitor closely on telemetry and reassess at the above.
Discharge Plan
Departure
Patient Disposition: Admit
Date of Disposition: 09/30/25
Time of Disposition: 12:42
Admit to: Telemetry
Admit to doctor: hospitalist
Presentation/result/management discussed w/ accepting MD/DO: Hospitalist
Patient with high blood pressure during this ER visit?: No
Condition: Fair
Covid-19: Not Applicable
Discharge Problem:
Hypoxia, copd exacerbation, Fall
Prescriptions:
No Action
atorvastatin 40 MG tablet
40 mg PO DAILY Qty: 30 0RF
diltiazem HCl 120 MG capsule,extended release 24hr
120 mg PO DAILY Qty: 30 0RF
albuterol sulfate 2.5 mg /3 mL (0.083 %) Solution For Nebulization
2.5 mg INHALATION R Q6HPRN PRN (Reason: wheezing)
budesonide 0.5 mg/2 mL Suspension For Nebulization
0.5 mg INHALATION R BID
tamsulosin 0.4 MG capsule
0.4 mg PO BID
omeprazole 20 MG capsule,delayed release(DR/EC)
20 mg PO DAILY PRN (Reason: Gastrointestinal Issue)
prednisone 10 mg tablet
10 mg PO DAILY
Rx Instructions:
continue after prednisone taper
Saline Nasal 0.65 % Aerosol,[place]
1 spray intranasal QIDPRN PRN (Reason: dry nares) Qty: 44 0RF
acetaminophen [Tylenol] 325 mg Tablet
650 mg PO Q6H PRN (Reason: pain )
insulin glargine [Basaglar KwikPen U-100 Insulin] 100 unit/mL (3 mL) Insulin Pen
5 unit SC HS
aspirin 81 mg tablet,chewable
81 mg PO DAILY
hydrocortisone acetate 25 mg Suppository
25 mg IA HS Qty: 24 0RF
prednisone 20 mg Tablet
20 mg PO DAILY Qty: 1 0RF
Rx Instructions:
Take this on September 24, 2025
ipratropium-albuterol 0.5 mg-3 mg(2.5 mg base)/3 mL Solution For Nebulization
3 ml inhalation R Q4HPRN PRN (Reason: SOB/wheezing) Qty: 180 2RF
loperamide 2 mg Capsule
2 mg PO DAILYPRN PRN (Reason: Diarrhea) 7 Days Qty: 7 0RF
cephalexin 500 mg Capsule
500 mg PO QID Qty: 26 0RF
Rx Instructions:
Continue Cephalexin 500 mg QID through September 29, 2025
Lactobac/Bifidobac [Visbiome]
1 cap PO DAILY 7 Days Qty: 7 0RF
magnesium oxide 400 mg magnesium capsule
400 mg PO DAILY Qty: 7 0RF
gabapentin 100 mg Capsule
100 mg PO TID PRN (Reason: Nerve Pain) Qty: 0 0RF
Referrals:
Greg Fam MD [Family Provider, Urology]
Interventions
Interventions:
*Risk Screen - Suicide Last Done: 09/30/25 09:32
*General Assessment Last Done: 09/30/25 09:32
*Neglect/Abuse Screening Last Done: 09/30/25 09:32
*ED COVID-19 Vaccine History Last Done: 09/30/25 09:42
*ED Influenza Vaccine History Last Done: 09/30/25 09:42
[facility] Fall Risk Assessment Tool Last Done: 09/30/25 09:41
ED- Cardiac Assessment Last Done: 09/30/25 09:47
ED- Neurological Assessment Last Done: 09/30/25 09:47
ED- Pulmonary Assessment Last Done: 09/30/25 09:47
Discharge Date and Time
Print Language: CZECH
[2025-09-30 10:16] LABS: Hematocrit 47.6 % (39.0-52.0); Hemoglobin 13.9 g/dL (13.0-18.0); Mean Corp Hgb Conc. 29.2 g/dL (33.0-37.0); Mean Corpuscular Volume 97.5 fL (80.0-94.0); Nucleated Red Blood Cells % 0 % (-); Platelet Count 189 10^3/uL (130-400); Red Cell Dist. Width 13.5 % (11.5-14.5)
[2025-09-30] MEDS: VENTOLIN NEBULES 2.5 MG INH (10:24)
[2025-09-30] MEDS: NSS 500 IV (10:24)
[2025-09-30 10:25] LABS: ALT (SGPT) 14 U/L (0-50); AST (SGOT) 17 U/L (17-59); Albumin 3.3 g/dl (3.5-5.0); Alkaline Phosphatase 116 U/L (38-126); Blood Urea Nitrogen 15 mg/dl (9-20); Calcium 8.5 mg/dl (8.4-10.2); Carbon Dioxide 37 mmol/L (22-30); Chloride 91 mmol/L (98-107); Estimated Creatinine Clearance 82 ml/min; Glucose 110 mg/dl (70-99); Potassium 3.8 mmol/L (3.5-5.1); Sodium 134 mmol/L (135-145); Total Protein 5.7 g/dl (6.3-8.2); eGFR > 60.00
[2025-09-30 10:34] LABS: COVID-19 Antigen Negative (Negative)
[2025-09-30 10:37] LABS: Troponin I 0.034 ng/ml
--- NOTE | 2025-09-30 10:38 | RESPNOTE ---
TT received from service unit operator for bipap in ED 31. upon arrival & discussion with VENKATESH Peralta, hold off on bipap, pt not in distress, on nasal cannula.
[2025-09-30 10:56] LABS: Venous Blood Gas B.E. 13.4 mmol/L (-4 to +4); Venous Blood Gas O2 Sat % 99.2 %
[2025-09-30] MEDS: DECADRON 10 MG IV (11:05)
--- NOTE | 2025-09-30 12:49 | HPS.HSE ---
Addendum entered and electronically signed by Alexy Zabala MD 09/30/25 14:53:
This is an addendum to H&P written by Christina Valdes on 09/30/2025. �Patient seen and examined independently with ERP PROGRAMMER.
84-year-old male past medical history of COPD on 2 L baseline, paroxysmal atrial fibrillation not on anticoagulation, chronic HFpEF, hypertension, type 2 diabetes, history of hypoglycemia, chronic urinary retention, hyperlipidemia, prostate cancer
status post radiation, sacral pressure injury stage I, GERD history of shingles left forearm, presenting for being found on the ground. �Patient does not recall falling.
Recently admitted for septic shock secondary to E. coli UTI/bacteremia.
He has chronic cough, shortness of breath and lower extremity which is at baseline.
Vital signs show heart rate up to 119. �Patient hypoxemic requiring 4 L oxygen. �On examination he was initially noted to have bilateral wheezing with diminished breath sounds bilaterally but now clear.�
Labs show leukocytosis of 12. �Cardiac BNP of 1000. �COVID and flu negative. �VBG shows pH of 7.42, pCO2 of 63.
CT PE shows no acute abnormality apart from small pericardial effusion slightly increased.
CT head, CT cervical spine shows no acute abnormality.
Patient came in for being found on the ground. �Hypoxemia noted here. �Patient with acute COPD exacerbation. �DuoNebs, lori.
Urinalysis pending.
Original Note:
Family Physician
-
Family Physician: Greg Fam MD
Chief Complaint
-
found down
History of Present Illness
84-year-old mal with past medical history of COPD A-fib not anticoagulated CHF hypertension hyperlipidemia smoker was found on the floor by his family. patient can not recall anything. he remembers going to bed last night around 11pm. denied NUR,
dizzy or syncope.denied fever, chills. denied worsening cough, sob. denied worsening of LE edema. denied chest pain, sob. denied abdominal pain,n,v,d. denied dysuria or hematuria.
upon arrival he was 80 on RA, requiring 4l. he uses baseline 2l at all the time.
Medical History
Past Medical History
Past Medical History: Reports Other
Additional Past Medical History:
Chronic respiratory failure with hypoxia, pulmonary emphysema, prostate cancer, BPH, type 2 diabetes, CHF, pulmonary hypertension, COPD, hyperlipidemia, chronic pain syndrome, GERD, postherpetic neuralgia,
Past Surgical History: Reports Other
Social History
Tobacco: Smoker (1/2 pack daily)
Alcohol: None
Drug: None
Living: Alone
Family History
Family History: Not pertinent
Allergies / Home Medications
Allergies reflects when Allergies were last updated in [employer].
Home Medications with original date entered in [employer]
Allergy/Medication List:
Allergies
Allergy/AdvReac Type Severity Reaction Status Date / Time
No Known Allergies Allergy Verified 09/16/25 03:08
Home Medications
atorvastatin 40 mg tablet 40 mg PO DAILY High cholesterol #30 tabs 06/04/23
diltiazem HCl 120 mg capsule,extended release 24 hr 120 mg PO DAILY Arrhythmia #30 caps 06/04/23
albuterol sulfate 2.5 mg/3 mL (0.083 %) solution for nebulization 2.5 mg inhalation R Q6HPRN PRN wheezing 11/07/23
budesonide 0.5 mg/2 mL suspension for nebulization 0.5 mg inhalation R BID Lung/Breathing Issues 05/13/24
omeprazole 20 mg capsule,delayed release 20 mg PO DAILY PRN Gastrointestinal Issue 05/13/24
tamsulosin 0.4 mg capsule 0.4 mg PO BID Urinary issue 05/13/24
prednisone 10 mg tablet 10 mg PO DAILY Anti-Inflammatory 07/13/25
Held on 09/23/25. Instructions: Resume on 09/25/25.
sodium chloride 0.65 % nasal spray aerosol (Saline Nasal) 1 spray intranasal QIDPRN PRN dry nares #44 mL 07/15/25
acetaminophen 325 mg tablet (Tylenol) 650 mg PO Q6H PRN pain 09/12/25
aspirin 81 mg chewable tablet 81 mg PO DAILY Blood Clot Prevention/Tx 09/16/25
insulin glargine 100 unit/mL (3 mL) subcutaneous pen (Basaglar KwikPen U-100 Insulin) 5 unit SC HS Diabetes 09/16/25
Held on 09/23/25. Instructions: Resume on 11/04/25. Before resuming this, discuss with your primary care provider if and when you should resume this medication.
Lactobac/Bifidobac [Visbiome] 1 cap PO DAILY 7 days #7 caps 09/23/25
cephalexin 500 mg capsule 500 mg PO QID #26 caps 09/23/25
gabapentin 100 mg capsule 100 mg PO TID PRN Nerve Pain #0 caps 09/23/25
hydrocortisone acetate 25 mg rectal suppository 25 mg W[place] HS #24 ea 09/23/25
ipratropium 0.5 mg-albuterol 3 mg (2.5 mg base)/3 mL nebulization soln 3 ml inhalation R Q4HPRN PRN SOB/wheezing #180 mL 09/23/25
loperamide 2 mg capsule 2 mg PO DAILYPRN PRN Diarrhea 7 days #7 caps 09/23/25
magnesium oxide 400 mg PO DAILY #7 caps 09/23/25
prednisone 20 mg tablet 20 mg PO DAILY #1 tab 09/23/25
Review of Systems
-
Constitutional: Reports No Symptoms
EENT: Reports No Symptoms
Respiratory: Reports No Symptoms
Cardiac: Reports No Symptoms
Abdomen/GI: Reports No Symptoms
: Reports No Symptoms
Musculoskeletal: Reports No Symptoms
Skin: Reports No Symptoms
Neurological: Reports No Symptoms
Endocrine: Reports No Symptoms
Hematologic/Lymphatic: Reports No Symptoms
Psych: Reports No Symptoms
Physical Exam
Vital Signs
Vital Signs
Temp Pulse Resp BP Pulse Ox
98.2 F 107 18 120/60 90
09/30/25 09:32 09/30/25 12:00 09/30/25 12:06 09/30/25 12:00 09/30/25 12:00
Physical Exam
General: Well Developed, Well Nourished and No Apparent Distress
HEENT: NormoCephalic, Moist mucous membranes and Atraumatic
Respiratory: Decreased Breath Sounds
Cardiac: S1/S2 and Regular Rhythm; No Murmur or Rub
GI: Soft, Non Tender, Non Distended and Normal Bowel Sounds; No Organomegaly
Rectal: Deferred by Provider
Musculoskeletal: No Clubbing, No Cyanosis and Other (LE edema)
Skin: No Rash
Neuro: AO x 3 and Nonfocal/grossly intact
Psych: Calm
Laboratory Results
-
09/30/25 09:56
09/30/25 09:56
Laboratory Results
Lactic Acid 1.4 mmol/L (0.7-2.0) 09/30/25 10:33
Total Bilirubin 1.6 mg/dl (0.2-1.3) H 09/30/25 09:56
AST 17 U/L (17-59) 09/30/25 09:56
ALT 14 U/L (0-50) 09/30/25 09:56
Alkaline Phosphatase 116 U/L (38-126) 09/30/25 09:56
Troponin I 0.034 ng/ml 09/30/25 09:56
Troponin I Cancelled 09/30/25 09:56
Data Reviewed
-
Diagnostic Radiology: Report Reviewed by me
CT Scan: Report Reviewed by me
Lab Data: Labs Reviewed by me
Impression/Plan
-
#Acute hypoxic respiratory failure concern for COPD exacerbation
- Continue IV steroids
- Continue nebs as needed for short of breath or wheezing
- Continue supplemental oxygen to keep sat greater than 95, wean as tolerated
-Chest x-ray pending
- Chest CT with impression No evidence of pulmonary embolism.COPD. No evidence of pneumonia.Small pericardial effusion, slightly increased.f the patient has emphysema, patient should be assessed for an annual low dose lung cancer CT program, as
pulmonary emphysema is an independent risk factor for lung cancer.
#Leukocytosis likely reactive
- WBCs 12.1, patient is afebrile
- Continue to monitor
#fall
-head CT with wih no acute findings
-cervical spine CT with Normal stature without compression deformity. No fracture identified. No prevertebral swelling. No anterior posterior listhesis. Multilevel discogenic and facet degenerative changes. No cervical mass or adenopathy. Incidental
bilateral parotid small sialoliths. Mild emphysematous lung changes in the visualized lung apices.
-PT,OT consulted
-fall precaution
-UA pending
#recent Septic shock in the setting of stone related sepsis with complicated UTI - shock state resolved as of 09/17
#GNR bacteremia due to E. coli UTI
#E. coli septic shock - sepsis complicated by HALI, obstructive uropathy - etiology of sepsis likely acute right sided pyelonephritis with associated nephrolithiasi
#right lower pole renal mass with recent CT
#hemorrhoids
-hydrocortisone continued
#Paroxysmal atrial fibrillation
-Diltiazem continue
#Type 2 Diabetes Mellitus with peripheral neuropathy
-sliding scale
#Hyperlipidemia -atorvastatin.
#Chronic heart failure preserved EF -stable.
-strict I&O, daily weight
#History of prostate cancer with history of prior radiation
#urinary retention
-Flomax continued
-bladder scan
#GERD
-PPI continued
#Sacrum pressure injury stage 1
-wound care consulted
#DVT prophylaxis
-Lovenox
#CODE status
-full code
--- NOTE | 2025-09-30 15:44 | WOUNDNOTE ---
RLE/KNEE (LATERAL)
--- NOTE | 2025-09-30 15:45 | WOUNDNOTE ---
[facility] RN note: Patient admitted with acute on chronic respiratory failure, UTI. Patient found on the ground prior to admission.
See H&P for complete history.
PMH: COPD (on o2, prednisone), a fib, HF, DM, urinary retention, prostate ca s/p radiation, L forearm shingles, smoker, LE edema.
Wound Location and type/assessment: Patient admitted with: scabbed area on his lip. L forearm scabbed lesions. R wrist scabbed abrasion. Sacral/coccyx scattered dermal open areas d/t stage 2 pressure along with MASD.S Scrotum/penis MASD. Bruise R
lateral knee, arms.
Appetite: good. Patient very thin.
Pressure redistribution devices in place: [place] [employer] Accum[employer]. Spoke with supervisor machine setter Nav and requested an air mattress. Discussed with RN Ev. Patient can turn self in bed.
Plan: Patient incontinent of large soft brown stool. [place] care given. Silicone border foam reapplied. Calazime applied to penile/scrotal area. Patient turned to L semi side lying position. Heels off bed with air chair cushion.
Will confirm orders with hospitalist.
Care plan to be updated and will follow as needed.
Note to case management of equipment requested for discharge: Air mattress at SNF.
Recommend follow up at wound care center upon discharge if needed.
[2025-09-30] MEDS: DUONEB 3 ML INH ×2 (15:48→19:45)
[2025-09-30 16:29] LABS: Glucose - Point of Care 187 mg/dl (70-99)
[2025-09-30 17:18] LABS: Glucose - Point of Care 261 mg/dl (70-99)
[2025-09-30] MEDS: NOVOLOG FLEXPEN-LOW RESISTANCE 3 UNITS SC (18:11)
[2025-09-30] MEDS: LOVENOX 40 MG SC (18:12)
[2025-09-30 19:31] LABS: Urine Character Slightly Cloudy (Clear)
[2025-09-30 19:37] LABS: Urine Squamous Cell >30 /LPF (Few)
[2025-09-30 19:38] LABS: Urine White Cell 26-30 /HPF (0-5)
[2025-09-30] MEDS: PULMICORT 0.5 MG INH (19:45)
[2025-09-30] MEDS: MUCINEX 600 MG PO (20:43)
[2025-09-30] MEDS: FLOMAX 0.4 MG PO (20:44)
[2025-09-30] MEDS: DECADRON 4 MG IV (21:22)
[2025-09-30 21:24] LABS: Glucose - Point of Care 222 mg/dl (70-99)
[2025-10-01] VITALS (8 sets, daily range): BP systolic 114–136; BP diastolic 57–76; PULSE 94; O2SAT 93
[2025-10-01] MEDS: DUONEB 3 ML INH ×4 (07:10→20:00)
[2025-10-01] MEDS: PULMICORT 0.5 MG INH ×2 (07:10→20:00)
--- NOTE | 2025-10-01 07:28 | W.PN.HOSP.TC ---
Today's Communication/Plan
-
- check orthastatic vital signs
- treat possible COPD exacerbation
- monitor telemtery
- monitor VS, labs
- CM for dispo planning
Assessment / Plan
Assessment / Plan
In summary, 84 yo M PMH COPD on 2L O2, paroxysmal atrial fibrillation not on anticoagulation, HFpEF, essential HTN, HLD, T2DM, GERD, hx of shingles chronic urinary retention c/b recent admission for septic shock from E coli pyelonephritis/UTI,
prostate cancer s/p radiation presenting after being found down on the ground currently most concerning for a COPD exacerbation vs. syncope vs. mechanical rolling out of bed
Acute hypoxic respiratory failure concern for COPD exacerbation
Possible syncope/presyncope
- no clear explanation for why patient's HPI
- could be related to COPD with nonadherence to BIPAP --> hypercapnea?
- no clear cardiac explanation unless a paroxysmal arrhythmia that self-terminated
- does not appear to be seizure
- desaturation on presentation to 90% could indicate respiratory failure
- could be attributed to a mechanical rolling out of bed, unclear
- he is on tamsulosin, possible orthostasis - check orthostatic vitals
- treating for now as a COPD exacerbation with respiratory failure
- IV dexamethasone, albuterol/ipratropium, budesonide
- guaifenesin
- monitor telemetry
Fall
- could be attributed to a mechanical rolling out of bed, unclear
- he is on tamsulosin, possible orthostasis - check orthostatic vitals
- CT Head noncant and CT Cspine unremarkable for acute process
- PT/OT consulted
- fall precautions
- UA with many squamous cells/bacteria/WBCs (nursing noted several excoriations in area) likely contaminated; and recent pyelonephritis
- culture pending
Paroxysmal atrial fibrillation
- diltiazem
- HAS BLED 2-3, anticoagulation could be considered
PMH recent septic shock in the setting of stone related sepsis with complicated UTI & pyelonephritis - shock state resolved as of 09/17
- GNR bacteremia due to E. coli UTI
- E. coli septic shock - sepsis complicated by HALI, obstructive uropathy - etiology of sepsis likely acute right sided pyelonephritis with associated nephrolithiasis
- denies flank pain, dysuria to me at this time
Leukocytosis likely reactive - resolved
- WBCs 12.1 -> 8.3, patient is afebrile
T2DM
- sliding scale insulin
HLD
- atorvastatin
HFpEF without exacerbation
- monitor I/Os, daily weights
GERD
-PPI continued
Hemorrhoids
- hydrocortisone rectal
right lower pole renal mass on recent CT
- follow-up outpatient
- denies flank pain, dysuria to me at this time
History of prostate cancer with history of prior radiation
urinary retention
-Flomax continued
-bladder scan
Wounds present on admission
- Sacrum pressure injury stage 2
- bilateral heels boggy and under bandages
- wound care consulted
Code status: Full
DVTppx: enoxaparin
Diet: diabetic diet
Disposition: nursing expressed concerns about his well-being at home because area noted marked excoriations and phimosis. Nursing requested CM involvement in disposition planning. CM is aware. PT/OT have been consulted and recommend SNF.
Anticipated Discharge: 24 - 48 hours
Subjective/Interval History
-
Date of Service: October 01, 2025
84 yo M PMH COPD on 2L O2, paroxysmal atrial fibrillation not on anticoagulation, HFpEF, essential HTN, HLD, T2DM, GERD, hx of shingles chronic urinary retention c/b recent admission for septic shock from E coli pyelonephritis/UTI, prostate cancer
s/p radiation presenting after being found down on the ground.
Of note, he was admitted for septic shock from complicated UTI + pyelonephritis with E coli, discharged 09/23
In the ED,
VS afebrile HR 107; BP 120/60; SpO2 60%
WBC 12.1
Hbg 13.9
K 3.8
bicarb 37
Cr 0.6
BG 110
Lactic acid 1.4
CK 21
VBG 7.42/63/92/40.9
LFTs largely within normal limits
Troponin 0.034
proBNP 1020
EKG sinus tachycardia
CT Chest PE negative for PE, pneumonia
CT Head no acute abnormality
CT C-spine negative for fracture
During my interview with the patient this morning, he denies any recollection of the events. He last remembers going to sleep and then was found on the ground by his aide, and next thing he recalls is waking up in the hospital.
ROS: he endorses some chronic dyspnea but denies chest pain, palpitations, tongue biting, bowel/bladder incontinence. He also denies abdominal pain, headaches. He denies dysuria, flank pain or hematuria.
He denies any acute worsening of dyspnea and denies any cough or sputum production.
He reports that he was advised to use BIPAP at his last admission, but he denies using it at home.
Nursing reports he is now on 3L nasal cannula and expressed concerns about his well-being at home because area noted marked excoriations and phimosis. Nursing requested CM involvement in disposition planning.
Objective Data
-
Labs:
Laboratory Results
10/01/25
06:00
WBC Pending
Hgb Pending
Hct Pending
Plt Count Pending
Sodium Pending
Potassium Pending
Chloride Pending
Carbon Dioxide Pending
BUN Pending
Creatinine Pending
Glucose Pending
Calcium Pending
cdiff negative
blood cultures pending
urine culture pending
flu negative
covid negative
Vital Signs:
Vital Signs
Temp Pulse Resp BP Pulse Ox
97.9 F 94 16 118/60 96
10/01/25 03:52 10/01/25 07:11 10/01/25 07:11 10/01/25 03:52 10/01/25 03:59
I&O
09/30/25 10/01/25 10/02/25
06:59 06:59 06:59
Intake Total 240 / 240
Output Total 225 / 225
Balance
Review of Systems
-
History Source: Patient
Constitutional: Reports No Symptoms
EENT: Reports No Symptoms Reported
Respiratory: Reports Trouble Breathing
Cardiac: Reports No Symptoms
Abdomen/GI: Reports No Symptoms
Genitourinary: Reports No Symptoms
Musculoskeletal: Reports No Symptoms
Neuro: Reports No Symptoms
Physical Exam
-
General: Conversant
HEENT: Normocephalic
Respiratory: Clear to Auscultation
Cardiac: Other (no murmurs on my exam)
GI: Soft and Nontender
Musculoskeletal: Other (possible pedal edema per nursing)
Skin: Other (excorations/rash all over arms, wound bandages on heels, hx of shingles)
Neuro: Awake, Alert, No Motor Deficits and Nonfocal/Grossly Intact
Psych: Calm
[2025-10-01 07:49] LABS: Glucose - Point of Care 226 mg/dl (70-99)
[2025-10-01] MEDS: VISBIOME 1 CAP PO (08:21)
[2025-10-01] MEDS: FLOMAX 0.4 MG PO ×2 (08:21→19:53)
[2025-10-01] MEDS: MAGNESIUM OXIDE 400 MG PO (08:21)
[2025-10-01] MEDS: LIPITOR 40 MG PO (08:21)
[2025-10-01] MEDS: NOVOLOG FLEXPEN-LOW RESISTANCE 2 UNITS SC (08:21)
[2025-10-01] MEDS: CARDIZEM CD 120 MG PO (08:21)
[2025-10-01] MEDS: MUCINEX 600 MG PO ×2 (08:21→19:53)
[2025-10-01] MEDS: LOW STRENGTH ASPIRIN 81 MG PO (08:22)
--- NOTE | 2025-10-01 08:30 | WOUNDNOTE ---
WO RN note: t/c Spoke with petr Gordon and requested an air mattress ([employer] air or [employer] Max air) who will bring up for patient. Inocente texted RN Ev Gilliam who will coordinate switching patient's bed.
[2025-10-01 09:16] LABS: Hematocrit 41.3 % (39.0-52.0); Hemoglobin 12.7 g/dL (13.0-18.0); Mean Corp Hgb Conc. 30.8 g/dL (33.0-37.0); Mean Corpuscular Volume 90.6 fL (80.0-94.0); Nucleated Red Blood Cells % 0 % (-); Platelet Count 183 10^3/uL (130-400); Red Cell Dist. Width 13.3 % (11.5-14.5)
[2025-10-01 09:31] LABS: Blood Urea Nitrogen 22 mg/dl (9-20); Calcium 8.0 mg/dl (8.4-10.2); Carbon Dioxide 35 mmol/L (22-30); Chloride 94 mmol/L (98-107); Estimated Creatinine Clearance 78 ml/min; Glucose 190 mg/dl (70-99); Potassium 3.8 mmol/L (3.5-5.1); Sodium 133 mmol/L (135-145); eGFR > 60.00
[2025-10-01 09:59] LABS: Cortisol, Random 1.6 ug/dl
[2025-10-01] MEDS: DECADRON 4 MG IV ×2 (10:02→21:28)
[2025-10-01 11:51] LABS: Glucose - Point of Care 160 mg/dl (70-99)
[2025-10-01] MEDS: NOVOLOG FLEXPEN-LOW RESISTANCE 1 UNITS SC (12:10)
[2025-10-01 16:44] LABS: Glucose - Point of Care 319 mg/dl (70-99)
--- NOTE | 2025-10-01 17:13 | CM ---
IA completed with pt. Lives alone in [facility], has assistance through Medicaid waiver with [place]
Needs assistance with bathroom/toileting and bathing
DME: Wheelchair
Has O2 through [employer]. Uses 2LPM via n/c. Has 5L concentrator and portable O2 and nebulizer
No insecurities identified, Confirmed RX and insurance. Pt states he does not have drug coverage. Could not confirm PCP
Primary contact is the son. I was unable to reach him because he has a 'VM that has not been set-up yet'
recommendations of skilled for PT and OT
I am not clear if this pt has a Hx of SNF at [facility]. He denies hx of SNF but previous admission mentions and DCP as [facility]
Pt provided SNF referrals, multiple facilities. Please see [facility]. States [facility] is his first choice
Plan: DC to SNF when stable
[2025-10-01] MEDS: LOVENOX 40 MG SC (17:35)
[2025-10-01] MEDS: NOVOLOG FLEXPEN-LOW RESISTANCE 4 UNITS SC (17:36)
[2025-10-01 21:46] LABS: Glucose - Point of Care 180 mg/dl (70-99)
[2025-10-02] VITALS (7 sets, daily range): BP systolic 103–148; BP diastolic 56–75; PULSE 83–97; BMI 19.6
[2025-10-02] MEDS: PULMICORT 0.5 MG INH ×2 (08:07→19:43)
[2025-10-02] MEDS: DUONEB 3 ML INH ×4 (08:07→19:43)
[2025-10-02 08:27] LABS: Glucose - Point of Care 203 mg/dl (70-99)
[2025-10-02] MEDS: CARDIZEM CD 120 MG PO (08:40)
[2025-10-02] MEDS: VISBIOME 1 CAP PO (08:40)
[2025-10-02] MEDS: MUCINEX 600 MG PO ×2 (08:40→20:22)
[2025-10-02] MEDS: FLOMAX 0.4 MG PO ×2 (08:41→20:22)
[2025-10-02] MEDS: LOW STRENGTH ASPIRIN 81 MG PO (08:41)
[2025-10-02] MEDS: LIPITOR 40 MG PO (08:41)
[2025-10-02] MEDS: MAGNESIUM OXIDE 400 MG PO (08:41)
--- NOTE | 2025-10-02 08:51 | W.PN.HOSP.TC ---
Today's Communication/Plan
-
Continue with current management
Transition to oral steroids tomorrow
Monitor orthostatic vitals
Dispo planning
Assessment / Plan
Assessment / Plan
In summary, 84 yo M PMH COPD on 2L O2, paroxysmal atrial fibrillation not on anticoagulation, HFpEF, essential HTN, HLD, T2DM, GERD, hx of shingles chronic urinary retention c/b recent admission for septic shock from E coli pyelonephritis/UTI,
prostate cancer s/p radiation presenting after being found down on the ground currently most concerning for a COPD exacerbation vs. syncope vs. mechanical rolling out of bed
#Acute hypoxic respiratory failure concern for COPD exacerbation
#Possible syncope/presyncope
- no clear explanation for why patient's HPI
- could be related to COPD with nonadherence to BIPAP --> hypercapnea?
- no clear cardiac explanation unless a paroxysmal arrhythmia that self-terminated
- does not appear to be seizure
- desaturation on presentation to 90% could indicate respiratory failure
- could be attributed to a mechanical rolling out of bed, unclear
- he is on tamsulosin, possible orthostasis - check orthostatic vitals
- treating for now as a COPD exacerbation with respiratory failure
- IV dexamethasone, albuterol/ipratropium, budesonide
- Transition to oral prednisone taper on 10/03
- guaifenesin
- monitor telemetry
#Fall
- could be attributed to a mechanical rolling out of bed, unclear
- he is on tamsulosin, possible orthostasis - check orthostatic vitals
- CT Head noncant and CT Cspine unremarkable for acute process
- fall precautions
#Paroxysmal atrial fibrillation
- Remains on home diltiazem, not anticoagulated
- HAS BLED 2-3, anticoagulation could be considered but will defer to his primary cardiology team
#PMH recent septic shock in the setting of stone related sepsis with complicated UTI & pyelonephritis - shock state resolved as of 09/17
- GNR bacteremia due to E. coli UTI
- E. coli septic shock - sepsis complicated by HALI, obstructive uropathy - etiology of sepsis likely acute right sided pyelonephritis with associated nephrolithiasis
- denies flank pain, dysuria to me at this time
#Leukocytosis likely reactive - resolved
- WBCs 12.1 -> 8.3, patient is afebrile
#T2DM
- sliding scale insulin
#HLD
- atorvastatin
#HFpEF without exacerbation
- monitor I/Os, daily weights
#GERD
-PPI continued
#Hemorrhoids
- hydrocortisone rectal
#right lower pole renal mass on recent CT
- follow-up outpatient
- denies flank pain, dysuria to me at this time
#History of prostate cancer with history of prior radiation
#urinary retention
-Flomax continued
-bladder scan
#Wounds present on admission
- Sacrum pressure injury stage 2
- bilateral heels boggy and under bandages
- wound care consulted
Code status: Full
DVTppx: enoxaparin
Diet: diabetic diet
Disposition: nursing expressed concerns about his well-being at home because area noted marked excoriations and phimosis. Nursing requested CM involvement in disposition planning. CM is aware. PT/OT have been consulted and recommend SNF.
Anticipated Discharge: 24 - 48 hours
Subjective/Interval History
-
Date of Service: October 02, 2025
Seen and examined at the bedside. No acute events reported overnight. AFVSS on 3 L O2 this morning
Patient denies any complaints, states he is feeling well. Evaluated by PT who recommended SNF
A.m. labs are stable.
Objective Data
-
Labs:
Laboratory Results
10/02/25
06:00
WBC Pending
Hgb Pending
Hct Pending
Plt Count Pending
Sodium Pending
Potassium Pending
Chloride Pending
Carbon Dioxide Pending
BUN Pending
Creatinine Pending
Glucose Pending
Calcium Pending
Vital Signs:
Vital Signs
Temp Pulse Resp BP Pulse Ox
97.7 F 79 16 114/65 97
10/02/25 03:50 10/02/25 08:40 10/02/25 08:09 10/02/25 08:40 10/02/25 08:09
I&O
10/01/25 10/02/25 10/03/25
06:59 06:59 06:59
Intake Total 240 / 240 480 / 480
Output Total 225 / 225 200 / 200
Balance 280 / 280
Review of Systems
-
History Source: Patient
All other systems: Reviewed and negative
Physical Exam
-
General: Well Developed, No Apparent Distress, Appears Chronically Ill and Other (Thin and frail)
HEENT: Normocephalic, Atraumatic, Moist Mucous Membranes, Anicteric and Oxygen
Respiratory: Rhonchi, Non Labored Respirations and Decreased Breath Sounds; Negative Accessory Resp Muscle Use
Cardiac: Regular Rhythm and S1/S2; Negative Murmur, Rub or Gallop
GI: Soft, Nontender, Nondistended and Normal Bowel Sounds
Musculoskeletal: No Cyanosis, No Edema and Other (Digital clubbing present)
Skin: Warm and Dry; Negative Rash or Jaundice
Neuro: AO x 3, Nonfocal/Grossly Intact and Central Nerve's Intact; Negative Tremors
Psych: Calm
Data Reviewed
-
Labs: Labs Reviewed by me and Discussed with Patient
[2025-10-02 09:25] LABS: Hematocrit 40.7 % (39.0-52.0); Hemoglobin 12.6 g/dL (13.0-18.0); Mean Corp Hgb Conc. 31.0 g/dL (33.0-37.0); Mean Corpuscular Volume 89.8 fL (80.0-94.0); Nucleated Red Blood Cells % 0 % (-); Platelet Count 180 10^3/uL (130-400); Red Cell Dist. Width 13.4 % (11.5-14.5)
[2025-10-02] MEDS: NOVOLOG FLEXPEN-LOW RESISTANCE 2 UNITS SC ×3 (09:46→16:45)
[2025-10-02 09:56] LABS: Blood Urea Nitrogen 26 mg/dl (9-20); Calcium 8.2 mg/dl (8.4-10.2); Carbon Dioxide 34 mmol/L (22-30); Chloride 96 mmol/L (98-107); Estimated Creatinine Clearance 76 ml/min; Glucose 203 mg/dl (70-99); Potassium 4.0 mmol/L (3.5-5.1); Sodium 134 mmol/L (135-145); eGFR > 60.00
[2025-10-02] MEDS: DECADRON 4 MG IV (11:39)
[2025-10-02 12:37] LABS: Glucose - Point of Care 212 mg/dl (70-99)
--- NOTE | 2025-10-02 16:18 | CM ---
CM received update that patient is medically cleared for discharge. CM met with patient to advise that [facility] is the only accepting facility right now, and patient is in agreement since he is known to them from a previous admission. Call
placed to facility liaison, Maura, who provided NPI numbers. CM will begin [employer] auth.
PLAN: discharge to [facility] once auth received
SANTO NPI: [id number]
Dr. Leo Hedrick
[2025-10-02 16:39] LABS: Glucose - Point of Care 210 mg/dl (70-99)
[2025-10-02] MEDS: LOVENOX 40 MG SC (16:45)
[2025-10-02] MEDS: NEURONTIN 300 MG PO (16:51)
[2025-10-02 21:22] LABS: Glucose - Point of Care 253 mg/dl (70-99)
[2025-10-03 03:27] VITALS: BP 117/64
[2025-10-03] MEDS: TYLENOL 650 MG PO ×2 (03:30→17:49)
[2025-10-03] MEDS: NEURONTIN 300 MG PO ×2 (03:30→17:49)
[2025-10-03 04:57] VITALS: BMI 19.9
[2025-10-03 07:00] VITALS: BP 129/70
[2025-10-03] MEDS: PULMICORT 0.5 MG INH ×2 (07:08→20:09)
[2025-10-03] MEDS: DUONEB 3 ML INH ×4 (07:08→20:09)
[2025-10-03 07:28] LABS: Hematocrit 37.6 % (39.0-52.0); Hemoglobin 11.5 g/dL (13.0-18.0); Mean Corp Hgb Conc. 30.6 g/dL (33.0-37.0); Mean Corpuscular Volume 92.6 fL (80.0-94.0); Nucleated Red Blood Cells % 0 % (-); Platelet Count 154 10^3/uL (130-400); Red Cell Dist. Width 13.2 % (11.5-14.5)
[2025-10-03 08:26] LABS: Glucose - Point of Care 145 mg/dl (70-99)
[2025-10-03] MEDS: NOVOLOG FLEXPEN-LOW RESISTANCE SC (08:29)
--- NOTE | 2025-10-03 08:48 | W.PN.HOSP.TC ---
Today's Communication/Plan
-
Transition to oral steroid
Continue nebulizers
Monitor telemetry
Dispo planning
Assessment / Plan
Assessment / Plan
In summary, 84 yo M PMH COPD on 2L O2, paroxysmal atrial fibrillation not on anticoagulation, HFpEF, essential HTN, HLD, T2DM, GERD, hx of shingles chronic urinary retention c/b recent admission for septic shock from E coli pyelonephritis/UTI,
prostate cancer s/p radiation presenting after being found down on the ground currently most concerning for a COPD exacerbation vs. syncope vs. mechanical rolling out of bed
#Acute hypoxic respiratory failure concern for COPD exacerbation
#Possible syncope/presyncope
- no clear explanation for why patient's HPI; suspect he may have fallen out of bed
- no clear cardiac explanation unless a paroxysmal arrhythmia that self-terminated
- treating for now as a COPD exacerbation with respiratory failure
- Continue with DuoNebs and budesonide nebulizer
- Transition to oral prednisone taper, wean by 10 mg every third day
- guaifenesin
- monitor telemetry
#Fall
- could be attributed to a mechanical rolling out of bed, unclear
- he is on tamsulosin, possible orthostasis - check orthostatic vitals
- CT Head noncant and CT Cspine unremarkable for acute process
- fall precautions
#Paroxysmal atrial fibrillation
- Remains on home diltiazem, not anticoagulated
- HAS BLED 2-3, anticoagulation could be considered but will defer to his primary cardiology team
- Continue on telemetry
#PMH recent septic shock in the setting of stone related sepsis with complicated UTI & pyelonephritis - shock state resolved as of 09/17
- GNR bacteremia due to E. coli UTI
- E. coli septic shock - sepsis complicated by HALI, obstructive uropathy - etiology of sepsis likely acute right sided pyelonephritis with associated nephrolithiasis
- denies flank pain, dysuria to me at this time
#Leukocytosis likely reactive - resolved
- WBCs 12.1 -> 8.3, patient is afebrile
#T2DM
- sliding scale insulin
#HLD
- atorvastatin
#HFpEF without exacerbation
- monitor I/Os, daily weights
#GERD
-PPI continued
#Hemorrhoids
- hydrocortisone rectal
#right lower pole renal mass on recent CT
- follow-up outpatient
- denies flank pain, dysuria to me at this time
#History of prostate cancer with history of prior radiation
#urinary retention
-Flomax continued
-bladder scan
#Wounds present on admission
#MASD
- Sacrum pressure injury stage 2, MASD of the groin
- bilateral heels boggy and under bandages
- wound care consulted
Code status: Full
DVTppx: enoxaparin
Diet: diabetic diet
Disposition: nursing expressed concerns about his well-being at home because area noted marked excoriations and phimosis. Nursing requested CM involvement in disposition planning. CM is aware. PT/OT have been consulted and recommend SNF.
Anticipated Discharge: Within 24 hours
Subjective/Interval History
-
Date of Service: October 03, 2025
Seen and examined at bedside. No acute events reported overnight. AFVSS on 3 L O2, SpO2 100%.
Morning labs stable, hemoglobin 11.5, creatinine 0.6, bicarb 34.
Denies any new complaints today, states he feels well.
Objective Data
-
Labs:
Laboratory Results
10/03/25
06:55
WBC 9.1
Hgb 11.5 L
Hct 37.6 L
Plt Count 154
Vital Signs:
Vital Signs
Temp Pulse Resp BP Pulse Ox
98.6 F 66 18 129/70 100
10/03/25 07:00 10/03/25 07:00 10/03/25 07:00 10/03/25 07:00 10/03/25 07:00
I&O
10/02/25 10/03/25 10/04/25
06:59 06:59 06:59
Intake Total 480 / 480 720 / 720
Output Total 200 / 200 200 / 200
Balance 280 / 280 520 / 520
Review of Systems
-
History Source: Patient
All other systems: Reviewed and negative
Physical Exam
-
General: Well Developed, No Apparent Distress, Appears Chronically Ill and Other (Thin and frail)
HEENT: Normocephalic, Atraumatic, Moist Mucous Membranes and Anicteric
Respiratory: Non Labored Respirations and Decreased Breath Sounds; Negative Wheezes, Rales, Rhonchi or Accessory Resp Muscle Use
Cardiac: Regular Rhythm and S1/S2; Negative Murmur, Rub or Gallop
GI: Soft, Nontender, Nondistended and Normal Bowel Sounds
Musculoskeletal: No Cyanosis, No Edema and Clubbing
Skin: Warm and Dry; Negative Rash or Jaundice
Neuro: AO x 3, Nonfocal/Grossly Intact and Central Nerve's Intact; Negative Tremors
Psych: Calm
Data Reviewed
-
Labs: Labs Reviewed by me, Discussed with Nurse and Discussed with Patient
[2025-10-03] MEDS: MAGNESIUM OXIDE 400 MG PO (08:55)
[2025-10-03] MEDS: FLOMAX 0.4 MG PO ×2 (08:55→20:28)
[2025-10-03] MEDS: DELTASONE 40 MG PO (08:55)
[2025-10-03] MEDS: VISBIOME 1 CAP PO (08:55)
[2025-10-03] MEDS: CARDIZEM CD 120 MG PO (08:55)
[2025-10-03] MEDS: LIPITOR 40 MG PO (08:55)
[2025-10-03] MEDS: LOW STRENGTH ASPIRIN 81 MG PO (08:55)
[2025-10-03] MEDS: MUCINEX 600 MG PO ×2 (08:55→20:28)
[2025-10-03 11:00] VITALS: BP 111/73
[2025-10-03 12:21] VITALS: BP 117/55; PULSE 71
[2025-10-03 12:38] LABS: Glucose - Point of Care 253 mg/dl (70-99)
[2025-10-03] MEDS: NOVOLOG FLEXPEN-LOW RESISTANCE 3 UNITS SC (13:44)
[2025-10-03 15:14] VITALS: BP 126/61
[2025-10-03 17:26] LABS: Glucose - Point of Care 382 mg/dl (70-99)
[2025-10-03] MEDS: NOVOLOG FLEXPEN-LOW RESISTANCE 5 UNITS SC (17:35)
[2025-10-03] MEDS: LOVENOX 40 MG SC (17:39)
[2025-10-03 23:01] VITALS: BP 98/45
[2025-10-03 23:23] LABS: Glucose - Point of Care 188 mg/dl (70-99)
[2025-10-04] VITALS (8 sets, daily range): BP systolic 105–135; BP diastolic 45–105; PULSE 75–91; O2SAT 95–98; BMI 19.8
[2025-10-04] MEDS: TYLENOL 650 MG PO (06:10)
[2025-10-04] MEDS: NEURONTIN 300 MG PO (06:10)
[2025-10-04] MEDS: DUONEB 3 ML INH ×4 (07:22→19:57)
[2025-10-04] MEDS: PULMICORT 0.5 MG INH ×2 (07:22→19:57)
--- NOTE | 2025-10-04 07:29 | W.PN.HOSP.TC ---
Addendum entered and electronically signed by Lyndsey Bishop MD 10/04/25 17:12:
I saw and evaluated the patient independently. I reviewed and discussed the resident�s note and agree with findings and plan as documented by Dr. Aguilar.
GENERAL: well developed, well nourished, male in no apparent distress
HEENT: NC/AT
HEART: regular rate and rhythm, +S1, +S2
LUNGS : wheezing bilaterally
ABDOM: soft, nontender, nondistended, + bowel sounds
EXT: no cyanosis, clubbing--trace edema bilaterally
NEUROLOGIC: grossly intact
Acute hypoxic respiratory failure concern for COPD exacerbation with Possible syncope/presyncope-- suspect he may have fallen out of bed- Continue with DuoNebs and budesonide nebulizer- Transition to oral prednisone taper, wean by 10 mg every third
day until back to POA daily 20mg prednisone- guaifenesin q12- monitor telemetry
Fall- could be attributed to a mechanical rolling out of bed, unclear- he is on tamsulosin, possible orthostasis - check orthostatic vitals- CT Head and CT Cspine unremarkable for acute process- fall precautions
Positive urine culture- Urine culture with Pseudomonas however patient denies any urinary symptoms--would not treat at this time
Paroxysmal atrial fibrillation- Remains on home diltiazem, not anticoagulated- HAS BLED 2-3, anticoagulation could be considered but will defer to his primary cardiology team; Patient not interested at this time- Continue on telemetry
PMH recent septic shock in the setting of stone related sepsis with complicated UTI & pyelonephritis - shock state resolved as of 09/17- GNR bacteremia due to E. coli UTI- E. coli septic shock - sepsis complicated by HALI, obstructive uropathy -
etiology of sepsis likely acute right sided pyelonephritis with associated nephrolithiasis- denies flank pain, dysuria to me at this time
Leukocytosis likely reactive - resolved
T2DM- sliding scale insulin
HLD- atorvastatin
HFpEF without exacerbation- monitor I/Os, daily weights
GERD-PPI continued
right lower pole renal mass on recent CT- follow-up outpatient
History of prostate cancer with history of prior radiation/urinary retention--Flomax continued-bladder scan
Wounds present on admission--MASD- Sacrum pressure injury stage 2, MASD of the groin- bilateral heels boggy and under bandages
Code status-- Full
DVT proph-- enoxaparin
anticipate SNF as per PT/OT
Original Note:
Today's Communication/Plan
-
continue current mgmt
anticipate dispo once Cm secure bed at SNF
repeat pt/ot eval pending
Assessment / Plan
Assessment / Plan
In summary, 84 yo M PMH COPD on 2L O2, paroxysmal atrial fibrillation not on anticoagulation, HFpEF, essential HTN, HLD, T2DM, GERD, hx of shingles chronic urinary retention c/b recent admission for septic shock from E coli pyelonephritis/UTI,
prostate cancer s/p radiation presenting after being found down on the ground currently most concerning for a COPD exacerbation vs. syncope vs. mechanical rolling out of bed
#Acute hypoxic respiratory failure concern for COPD exacerbation
#Possible syncope/presyncope
- no clear explanation for why patient's HPI; suspect he may have fallen out of bed
- no clear cardiac explanation unless a paroxysmal arrhythmia that self-terminated
- treating for now as a COPD exacerbation with respiratory failure
- Continue with DuoNebs and budesonide nebulizer
- Transition to oral prednisone taper, wean by 10 mg every third day until back to POA daily 20mg prednisone
- guaifenesin q12
- monitor telemetry
#Fall
- could be attributed to a mechanical rolling out of bed, unclear
- he is on tamsulosin, possible orthostasis - check orthostatic vitals
- CT Head noncant and CT Cspine unremarkable for acute process
- fall precautions
# Positive urine culture
- Urine culture with Pseudomonas however patient denies any urinary symptoms.
#Paroxysmal atrial fibrillation
- Remains on home diltiazem, not anticoagulated
- HAS BLED 2-3, anticoagulation could be considered but will defer to his primary cardiology team; Patient not interested at this time
- Continue on telemetry
#PMH recent septic shock in the setting of stone related sepsis with complicated UTI & pyelonephritis - shock state resolved as of 09/17
- GNR bacteremia due to E. coli UTI
- E. coli septic shock - sepsis complicated by HALI, obstructive uropathy - etiology of sepsis likely acute right sided pyelonephritis with associated nephrolithiasis
- denies flank pain, dysuria to me at this time
#Leukocytosis likely reactive - resolved
- resolved
#T2DM
- sliding scale insulin
#HLD
- atorvastatin
#HFpEF without exacerbation
- monitor I/Os, daily weights
#GERD
-PPI continued
#right lower pole renal mass on recent CT
- follow-up outpatient
- denies flank pain, dysuria to me at this time
#History of prostate cancer with history of prior radiation
#urinary retention
-Flomax continued
-bladder scan
#Wounds present on admission
#MASD
- Sacrum pressure injury stage 2, MASD of the groin
- bilateral heels boggy and under bandages
Code status: Full
DVTppx: enoxaparin
Diet: diabetic diet
Disposition: Awaiting PT/OT eval..
Anticipated Discharge: Within 24 hours
Subjective/Interval History
-
Date of Service: October 04, 2025
AFVSS. Offers no new complaints. Patient states he is feeling much better
Objective Data
-
Labs:
Laboratory Results
10/04/25
07:27
WBC Pending
Hgb Pending
Hct Pending
Plt Count Pending
Vital Signs:
Vital Signs
Temp Pulse Resp BP Pulse Ox
97.7 F 76 18 119/60 96
10/03/25 23:01 10/04/25 06:02 10/04/25 07:24 10/04/25 06:02 10/04/25 07:24
I&O
10/03/25 10/04/25 10/05/25
06:59 06:59 06:59
Intake Total 720 / 720 960 / 960
Output Total 200 / 200
Balance 520 / 520 960 / 960
Review of Systems
-
History Source: Patient
All other systems: Reviewed and negative
Physical Exam
-
General: Well Developed and No Apparent Distress
HEENT: Normocephalic, Atraumatic, Moist Mucous Membranes and Anicteric
Respiratory: Clear to Auscultation (With intermittent wheeze), Wheezes and Non Labored Respirations; Negative Rales, Rhonchi or Accessory Resp Muscle Use
Cardiac: Regular Rhythm and S1/S2; Negative Murmur, Rub or Gallop
GI: Soft, Nontender, Nondistended and Normal Bowel Sounds
Musculoskeletal: No Cyanosis, No Edema and Clubbing
Skin: Warm and Dry; Negative Rash or Jaundice
Neuro: AO x 3, Nonfocal/Grossly Intact and Central Nerve's Intact; Negative Tremors
Psych: Calm
Data Reviewed
-
Labs: Labs Reviewed by me, Discussed with Physician and Discussed with Patient
[2025-10-04 08:13] LABS: Glucose - Point of Care 117 mg/dl (70-99)
[2025-10-04 08:17] LABS: Hematocrit 37.9 % (39.0-52.0); Hemoglobin 11.5 g/dL (13.0-18.0); Mean Corp Hgb Conc. 30.3 g/dL (33.0-37.0); Mean Corpuscular Volume 92.4 fL (80.0-94.0); Nucleated Red Blood Cells % 0 % (-); Platelet Count 129 10^3/uL (130-400); Red Cell Dist. Width 13.3 % (11.5-14.5)
[2025-10-04] MEDS: NOVOLOG FLEXPEN-LOW RESISTANCE SC ×2 (09:37→12:47)
[2025-10-04] MEDS: LIPITOR 40 MG PO (09:42)
[2025-10-04] MEDS: DELTASONE 40 MG PO (09:44)
[2025-10-04] MEDS: VISBIOME 1 CAP PO (09:44)
[2025-10-04] MEDS: MUCINEX 600 MG PO ×2 (09:45→20:32)
[2025-10-04] MEDS: MAGNESIUM OXIDE 400 MG PO (09:45)
[2025-10-04] MEDS: FLOMAX 0.4 MG PO ×2 (09:45→20:32)
[2025-10-04] MEDS: LOW STRENGTH ASPIRIN 81 MG PO (09:45)
[2025-10-04] MEDS: CARDIZEM CD 120 MG PO (09:45)
[2025-10-04 12:00] LABS: Glucose - Point of Care 175 mg/dl (70-99)
--- NOTE | 2025-10-04 16:01 | CM ---
Addendum entered by Zahra Agarwal 10/04/25 17:16:
Physician reached patient grandson and update provided.
Addendum entered by Zahra Agarwal 10/04/25 17:02:
CM attempted to update patient regarding SNF options and recommendations via phone. No answer at this time.
Addendum entered by Zahra Agarwal 10/04/25 16:14:
no beds at [facility].
Original Note:
Patient seen at bedside and patient asking to go home. OT/PT assessed patient continue to recommend placement. CM reviewed options with patient wants [facility] and no beds available. CM was able to offer [facility] vs [facility]. CM will call to patient
family to update. CM will continue to follow for discharge planning needs.
plan; SNF; pending bed availability
[2025-10-04 16:56] LABS: Glucose - Point of Care 286 mg/dl (70-99)
[2025-10-04] MEDS: LOVENOX 40 MG SC (17:09)
[2025-10-04] MEDS: NOVOLOG FLEXPEN-LOW RESISTANCE 3 UNITS SC (17:10)
[2025-10-04 21:22] LABS: Glucose - Point of Care 289 mg/dl (70-99)
[2025-10-05] MEDS: TYLENOL 650 MG PO (02:14)
[2025-10-05] MEDS: NEURONTIN 300 MG PO (02:14)
[2025-10-05 06:00] VITALS: BMI 20.2
--- NOTE | 2025-10-05 07:12 | W.PN.HOSP.TC ---
Addendum entered and electronically signed by Lyndsey Bishop MD 10/05/25 15:46:
I saw and evaluated the patient independently. I reviewed and discussed the resident�s note and agree with findings and plan as documented by Dr. Aguilar.
GENERAL: well developed, well nourished, male in no apparent distress
HEENT: NC/AT
HEART: regular rate and rhythm, +S1, +S2
LUNGS : wheezing bilaterally
ABDOM: soft, nontender, nondistended, + bowel sounds
EXT: no cyanosis, clubbing--trace edema bilaterally
NEUROLOGIC: grossly intact
Acute hypoxic respiratory failure concern for COPD exacerbation with Possible syncope/presyncope-- suspect he may have fallen out of bed- Continue with DuoNebs and budesonide nebulizer- Transition to oral prednisone taper, wean by 10 mg every third
day until back to POA daily 20mg prednisone--pt refusing to take prednisone taper- guaifenesin q12
Fall- could be attributed to a mechanical rolling out of bed, unclear- he is on tamsulosin, possible orthostasis - neg orthostatic vitals- CT Head and CT C-spine unremarkable for acute process- fall precautions
Positive urine culture- Urine culture with Pseudomonas however patient denies any urinary symptoms--would not treat at this time
Paroxysmal atrial fibrillation- Remains on home diltiazem, not anticoagulated- HAS BLED 2-3, anticoagulation could be considered but will defer to his primary cardiology team; Patient not interested at this time- Continue on telemetry
PMH recent septic shock in the setting of stone related sepsis with complicated UTI & pyelonephritis - shock state resolved as of 09/17- GNR bacteremia due to E. coli UTI- E. coli septic shock - sepsis complicated by HALI, obstructive uropathy -
etiology of sepsis likely acute right sided pyelonephritis with associated nephrolithiasis- denies flank pain, dysuria to me at this time
Leukocytosis likely reactive - resolved
T2DM- sliding scale insulin
HLD- atorvastatin
HFpEF without exacerbation- monitor I/Os, daily weights
GERD-PPI continued
right lower pole renal mass on recent CT- follow-up outpatient
History of prostate cancer with history of prior radiation/urinary retention--Flomax continued-bladder scan
Wounds present on admission--MASD- Sacrum pressure injury stage 2, MASD of the groin- bilateral heels boggy and under bandages
Code status-- Full
DVT proph-- enoxaparin
anticipate SNF as per PT/OT--BUT pt refusing to wait for insurance auth--leaving AGAINST MEDICAL ADVICE--
Original Note:
Today's Communication/Plan
-
Home AGAINST MEDICAL ADVICE
Assessment / Plan
Assessment / Plan
In summary, 84 yo M PMH COPD on 2L O2, paroxysmal atrial fibrillation not on anticoagulation, HFpEF, essential HTN, HLD, T2DM, GERD, hx of shingles chronic urinary retention c/b recent admission for septic shock from E coli pyelonephritis/UTI,
prostate cancer s/p radiation presenting after being found down on the ground currently most concerning for a COPD exacerbation vs. syncope vs. mechanical rolling out of bed
#Acute hypoxic respiratory failure concern for COPD exacerbation
#Possible syncope/presyncope
- no clear explanation for why patient's HPI; suspect he may have fallen out of bed
- no clear cardiac explanation unless a paroxysmal arrhythmia that self-terminated
- treating for now as a COPD exacerbation with respiratory failure
- Continue with DuoNebs and budesonide nebulizer
- Transition to oral prednisone taper, wean by 10 mg every third day ; patient refused to take medications today
- guaifenesin q12
#Fall
- could be attributed to a mechanical rolling out of bed, unclear
- he is on tamsulosin, possible orthostasis - check orthostatic vitals
- CT Head noncant and CT Cspine unremarkable for acute process
- fall precautions
# Positive urine culture
- Urine culture with Pseudomonas however patient denies any urinary symptoms.
#Paroxysmal atrial fibrillation
- Remains on home diltiazem, not anticoagulated
- HAS BLED 2-3, anticoagulation could be considered but will defer to his primary cardiology team; Patient not interested at this time
- Continue on telemetry
#PMH recent septic shock in the setting of stone related sepsis with complicated UTI & pyelonephritis - shock state resolved as of 09/17
- GNR bacteremia due to E. coli UTI
- E. coli septic shock - sepsis complicated by HALI, obstructive uropathy - etiology of sepsis likely acute right sided pyelonephritis with associated nephrolithiasis
- denies flank pain, dysuria to me at this time
#Leukocytosis likely reactive - resolved
- resolved
#T2DM
- sliding scale insulin
#HLD
- atorvastatin
#HFpEF without exacerbation
- monitor I/Os, daily weights
#GERD
-PPI continued
#right lower pole renal mass on recent CT
- follow-up outpatient
- denies flank pain, dysuria to me at this time
#History of prostate cancer with history of prior radiation
#urinary retention
-Flomax continued
#Wounds present on admission
#MASD
- Sacrum pressure injury stage 2, MASD of the groin
- bilateral heels boggy and under bandages
Code status: Full
DVTppx: enoxaparin
Diet: diabetic diet
Disposition: Home AGAINST MEDICAL ADVICE
Patient remained adamant on going home and refused to consider rehab. He verified understanding of the risks associated with leaving AGAINST MEDICAL ADVICE which includes worsening of his current medical condition, fall, fatal injuries.
He was very rude to the staff as well as the employment evaluator/case manager who was trying to help arrange the transport for him.
He also refused to take medications in the morning and insisted on going home
Anticipated Discharge: Today
Subjective/Interval History
-
Date of Service: October 05, 2025
AVSS.
Patient offers no new complaints.
Patient adamant on going home and refusing rehab as well as taking any medications in the hospital per the nurse
Objective Data
-
Labs:
Laboratory Results
10/05/25
07:04
WBC Pending
Hgb Pending
Hct Pending
Plt Count Pending
Sodium Pending
Potassium Pending
Chloride Pending
Carbon Dioxide Pending
BUN Pending
Creatinine Pending
Glucose Pending
Calcium Pending
Vital Signs:
Vital Signs
Temp Pulse Resp BP Pulse Ox
98 F 75 20 119/56 99
10/04/25 23:54 10/04/25 23:54 10/04/25 23:54 10/04/25 23:54 10/04/25 23:54
I&O
10/04/25 10/05/25 10/06/25
06:59 06:59 06:59
Intake Total 960 / 960 1140 / 1140
Balance 960 / 960 1140 / 1140
Review of Systems
-
History Source: Patient
All other systems: Reviewed and negative
Physical Exam
-
General: Well Developed and No Apparent Distress
HEENT: Normocephalic and Atraumatic
Respiratory: Clear to Auscultation (With intermittent wheeze), Wheezes and Non Labored Respirations; Negative Rales, Rhonchi or Accessory Resp Muscle Use
Cardiac: Regular Rhythm and S1/S2; Negative Murmur, Rub or Gallop
GI: Soft, Nontender, Nondistended and Normal Bowel Sounds
Musculoskeletal: No Cyanosis, No Edema and Clubbing
Skin: Warm and Dry; Negative Rash or Jaundice
Neuro: AO x 3, Nonfocal/Grossly Intact and Central Nerve's Intact; Negative Tremors
Psych: Calm
Data Reviewed
-
Labs: Labs Reviewed by me, Discussed with Physician and Discussed with Patient
[2025-10-05] MEDS: DUONEB 3 ML INH ×2 (07:30→11:20)
[2025-10-05] MEDS: PULMICORT 0.5 MG INH (07:30)
[2025-10-05 07:50] LABS: Glucose - Point of Care 128 mg/dl (70-99)
[2025-10-05] MEDS: NOVOLOG FLEXPEN-LOW RESISTANCE SC ×2 (07:59→13:19)
[2025-10-05] MEDS: VISBIOME 1 CAP PO (08:05)
[2025-10-05] MEDS: MUCINEX 600 MG PO (08:05)
[2025-10-05] MEDS: MAGNESIUM OXIDE 400 MG PO (08:06)
[2025-10-05] MEDS: LIPITOR 40 MG PO (08:06)
[2025-10-05] MEDS: FLOMAX 0.4 MG PO (08:06)
[2025-10-05] MEDS: CARDIZEM CD 120 MG PO (08:06)
[2025-10-05] MEDS: LOW STRENGTH ASPIRIN 81 MG PO (08:06)
[2025-10-05 08:40] LABS: Hematocrit 37.1 % (39.0-52.0); Hemoglobin 11.4 g/dL (13.0-18.0); Mean Corp Hgb Conc. 30.7 g/dL (33.0-37.0); Mean Corpuscular Volume 92.5 fL (80.0-94.0); Platelet Count 123 10^3/uL (130-400); Red Cell Dist. Width 13.2 % (11.5-14.5)
--- NOTE | 2025-10-05 08:49 | CM ---
Patient accepted to [facility] for rehab, [employer] pending auth submitted. Awaiting auth response.
[2025-10-05 08:57] LABS: Blood Urea Nitrogen 18 mg/dl (9-20); Calcium 7.7 mg/dl (8.4-10.2); Carbon Dioxide 33 mmol/L (22-30); Chloride 98 mmol/L (98-107); Estimated Creatinine Clearance 79 ml/min; Glucose 111 mg/dl (70-99); Potassium 3.5 mmol/L (3.5-5.1); Sodium 133 mmol/L (135-145); eGFR > 60.00
[2025-10-05 08:58] VITALS: BP 109/50; BP 115/61; BP 120/64; PULSE 78; PULSE 88; PULSE 96
[2025-10-05 11:37] LABS: Glucose - Point of Care 194 mg/dl (70-99)
[2025-10-05] MEDS: DELTASONE PO (12:03)
--- NOTE | 2025-10-05 12:03 | PTCARENOTE ---
Patient hs refused Prednisone this AM. Education was provided. Provider was notified.
[2025-10-05 14:30] VITALS: BP 129/60
--- NOTE | 2025-10-05 14:33 | CM ---
Patient seen at bedside with physicians. Patient refused referral to SNF, stating he wanted to go home. Patient became very angry and insisted that he was going to sign AMA and wanted no VN supports. CM will send referral to [facility] for assessment.
CM will continue to follow for discharge planning needs.
Plan; AMA son Justino to transport.
--- NOTE | 2025-10-05 14:45 | CM ---
Patient seen at bedside with physicians on floor. Patient states that he does not want to go to SNF and wants to sign AMA. CM spoke with patient son Justino and he acknowledged patient decision. CM sent referral to [facility] for follow up with medical needs.
Patient grandson also aware of discharge plan as physician spoke with him at length yesterday. Patient did not want any VN supports as well but stated he has aides either 16 hours a day or 4 hours at different times. CM will continue to follow for
discharge planning needs.
Plan; AMA; referral to [facility]
--- NOTE | 2025-10-05 14:50 | W.DCSUMMARY ---
Addendum entered and electronically signed by Lyndsey Bishop MD 10/05/25 18:26:
Read, reviewed, and agree. See same day progress note for additional details. Time spent coordinating care, DC planning, review of DC plan of care with resident, transition of care, review of records in EMR, med rec, consults, notes, d/w
consultants, nursing, family, and CM = 36 minutes
Of note: Patient's grandson Grant was on the patient's contact list. I called him on 10/04/2025 myself since we could not reach the patient's first contact which was his son Justino.
Original Note:
Discharge Summary
Discharge Data
Date of Admission: 09/30/25
Date of Discharge: 10/05/25
-
Pending Results: No
Hospital Course
Discharging Physician : Rao Aguilar MD ; Lyndsey Bishop MD
Disposition : Home AGAINST MEDICAL ADVICE
Primary care physician : Greg Fam
Principal Discharge diagnosis : Acute hypoxic respiratory failure concern for COPD exacerbation with Possible syncope/presyncope
fall
Paroxysmal atrial fibrillation
Chronic Discharge diagnosis : History of septic shock, type 2 diabetes mellitus, hyperlipidemia, HFpEF, GERD, right lower pole renal mass, history of prostate cancer, sacral wounds
Hospital Course : 84 yo M PMH COPD on 2L O2, paroxysmal atrial fibrillation not on anticoagulation, HFpEF, essential HTN, HLD, T2DM, GERD, hx of shingles chronic urinary retention c/b recent admission for septic shock from E coli
pyelonephritis/UTI, prostate cancer s/p radiation presented after being found down on the ground currently most concerning for a COPD exacerbation vs. syncope vs. mechanical rolling out of bed
1- Acute hypoxic respiratory failure concern for COPD exacerbation
Possible syncope/presyncope
There was no clear cardiac explanation unless patient had a paroxysmal arrhythmia that self-limited. Patient was treated as COPD exacerbation with respiratory failure he was treated with DuoNebs as well as budesonide nebulizer. He was started on
prednisone taper however patient refused to take it on 10/05/2025 and insisted on going home AGAINST MEDICAL ADVICE. During his hospital stay he was also given guaifenesin every 12 hours. His respiratory symptoms improved significantly with above
management. At the time of discharge he was informed regarding the prednisone taper. Prescription was sent to the pharmacy. Return precautions were reviewed.
Regarding his fall fall precautions were reviewed. There was a CT head as well as CT C-spine was done which were unremarkable. There was some leukocytosis which resolved
Initial workup also showed there was a positive urine culture with Pseudomonas however patient refused any symptoms and was not treated for this. He has a history of recent septic shock in the setting of complicated UTI and pyelonephritis. He
refused any flank pain, dysuria or any other urinary symptoms
2- Paroxysmal atrial fibrillation
Remains on home diltiazem, not anticoagulated
HAS BLED 2-3, anticoagulation could be considered but will defer to his primary cardiology team; Patient not interested at this time
Was monitored on telemetry during the hospital stay
Other chronic issue:
Is type 2 diabetes was managed with sliding scale insulin
He was continued on home atorvastatin for hyperlipidemia
His weight and input and output were monitored for his heart failure history
He was continued on PPI given his history of GERD
Flomax was continued for his history of urinary retention as well as history of prostate cancer
He was recommended for outpatient follow-up as the recent CT showed right lower pole renal mass.
Patient was evaluated by the PT/OT during the hospital stay and was recommended rehab however he refused; He also refused to take medications on 10/05/2025. plant senior manager secured a bed for him at a rehab facility however it required insurance
authorization and the patient refused to wait for the authorization. He was very rude to the medical staff as well as the egg caser who was trying to help arrange his posthospital care. He also informed us that his grandson should not be
involved in his medical care. Risks of leaving AGAINST MEDICAL ADVICE were discussed at length with the patient which include worsening of the current medical condition, recurrent falls, trauma/injury, . Patient verified understanding and
remained adamant on leaving.
Important imaging findings : CT Cervical Spine W/o Iv Contr:
Normal stature without compression deformity. No fracture identified. No prevertebral swelling. No anterior posterior listhesis. Multilevel discogenic and facet degenerative changes. No cervical mass or adenopathy. Incidental bilateral parotid small
sialoliths. Mild emphysematous lung changes in the visualized lung apices.
CT Head W/o Iv Contrast: No acute intracranial abnormality noted.
CT Chest PE Study:
IMPRESSION:
No evidence of pulmonary embolism.
Pulmonary artery branching order level of the most proximal pulmonary embolism: N/A
COPD. No evidence of pneumonia.
Small pericardial effusion, slightly increased.
CR Chest Portable - 1 View:
No acute cardiopulmonary process.
Procedure findings : EKG: SINUS TACHYCARDIA
LEFT AXIS DEVIATION
RIGHT BUNDLE BRANCH BLOCK
INFERIOR INFARCT (CITED ON OR BEFORE 24-Jan-2022)
Discharge Plan
-
Patient Disposition: Against Medical Advice
Discharge Diagnosis/Procedures: Acute hypoxic respiratory failure concern for COPD exacerbation with Possible syncope/presyncope
fall
Paroxysmal atrial fibrillation
Condition: Fair
Diet: Diabetic, Carb Controlled
Activity: With assistance
Driving Restrictions: As prior to admission
Bathing Restrictions: None
Other Services: PT and OT
Activity Restrictions/Additional Instructions:
Wound Care Instructions
Sacral/coccyx-clean with saline, silicone border foam, change every 2 days and prn loosened dressing.
Penis/scrotal MASD-zinc barrier ointment bid and as needed for incontinence.
evaluate for an air mattress
turning schedule
elevate heels off bed with pillows
Pressure redistributing chair cushion (i.e. air chair cushion).
Follow up at wound care center if needed, call for an appointment.
Referrals:
Greg Fam MD [Family Provider, Urology] - in less than 1 week
Additional Discharge Medication Instructions: You are leaving the [facility] AGAINST MEDICAL ADVICE. There is risk of worsening of your current medical condition which include acute hypoxic respiratory failure, COPD
exacerbation. You can also encounter another fall which can result in unexpected injuries. Above medical conditions or risk could be fatal.
I advise that you see your family doctor within 1 week
You can continue taking your home medications
Since you were started on a prednisone taper I recommend that you take 40 mg today, 30 mg for next 3 days, 20 mg for next 3 days and 10 mg for the next 3 days.
Prescriptions:
New
prednisone 10 mg tablet
See Taper PO DAILY Qty: 22 0RF
Taper: Prednisone DC Starting at 40 mg daily
40 mg Daily for 1 Day and 0 Hour
30 mg Daily for 3 Days and 0 Hour
20 mg Daily for 3 Days and 0 Hour
10 mg Daily for 3 Days and 0 Hour
Continued
atorvastatin 40 MG tablet
40 mg PO DAILY Qty: 30 0RF
diltiazem HCl 120 MG capsule,extended release 24hr
120 mg PO DAILY Qty: 30 0RF
albuterol sulfate 2.5 mg /3 mL (0.083 %) Solution For Nebulization
2.5 mg INHALATION R Q6HPRN PRN (Reason: wheezing)
budesonide 0.5 mg/2 mL Suspension For Nebulization
0.5 mg INHALATION R BID
tamsulosin 0.4 MG capsule
0.4 mg PO BID
omeprazole 20 MG capsule,delayed release(DR/EC)
20 mg PO DAILY PRN (Reason: Gastrointestinal Issue)
Saline Nasal 0.65 % Aerosol,[place]
1 spray intranasal QIDPRN PRN (Reason: dry nares) Qty: 44 0RF
acetaminophen [Tylenol] 325 mg Tablet
650 mg PO Q6H PRN (Reason: pain )
aspirin 81 mg tablet,chewable
81 mg PO DAILY
hydrocortisone acetate 25 mg Suppository
25 mg HI HS Qty: 24 0RF
ipratropium-albuterol 0.5 mg-3 mg(2.5 mg base)/3 mL Solution For Nebulization
3 ml inhalation R Q4HPRN PRN (Reason: SOB/wheezing) Qty: 180 2RF
loperamide 2 mg Capsule
2 mg PO DAILYPRN PRN (Reason: Diarrhea) 7 Days Qty: 7 0RF
Lactobac/Bifidobac [Visbiome]
1 cap PO DAILY 7 Days Qty: 7 0RF
magnesium oxide 400 mg magnesium capsule
400 mg PO DAILY Qty: 7 0RF
gabapentin 300 mg Capsule
300 mg PO TID PRN (Reason: nerve pain)
Discontinued
prednisone 20 mg Tablet
20 mg PO DAILY Qty: 1 0RF
Rx Instructions:
Take this on September 24, 2025
Discharge Orders:
Discharge Patient (As Directed); Ordered 10/05/25
Ordered By: Rao Aguilar
Discharge Date and Time
Discharge Date/Time: 10/05/25 15:43
Print Language: MOLDOVAN
[2025-10-05] MEDS: DUONEB INH (15:29)
== END 2025-10-05 15:43 | disposition left against medical advice (07) | DRG 190 ==
LOC: 4 EAST ACU 13:51
PROVIDERS: Nurse Practitioner; Registered Nurse; ADMITTING PHYSICIAN Hospitalist; ATTENDING PHYSICIAN Internal Medicine; EMERGENCY PHYSICIAN Emergency Medicine; FAMILY PHYSICIAN Urology
DX: J44.1 Chronic obstructive pulmonary disease with (acute) exacerbation (principal); J96.21 Acute and chronic respiratory failure with hypoxia; I50.32 Chronic diastolic (congestive) heart failure; I48.0 Paroxysmal atrial fibrillation; Z53.29 Procedure and treatment not carried out because of patient's decision for other reasons; R55 Syncope and collapse; E78.00 Pure hypercholesterolemia, unspecified; K11.5 Sialolithiasis; K21.9 Gastro-esophageal reflux disease without esophagitis; I11.0 Hypertensive heart disease with heart failure; F17.210 Nicotine dependence, cigarettes, uncomplicated; K64.9 Unspecified hemorrhoids; N40.0 Benign prostatic hyperplasia without lower urinary tract symptoms; L89.151 Pressure ulcer of sacral region, stage 1; E11.42 Type 2 diabetes mellitus with diabetic polyneuropathy; W19.XXXA Unspecified fall, initial encounter; Z11.52 Encounter for screening for COVID-19; Z79.899 Other long term (current) drug therapy; Z85.46 Personal history of malignant neoplasm of prostate; Z86.16 Personal history of COVID-19; Z92.3 Personal history of irradiation; Z99.81 Dependence on supplemental oxygen
CPT/HCPCS: 51798; 70450; 71045; 71275; 72125; 80048; 80053; 81003; 81015; 82533; 82550; 82805; 82962; 83605; 83880; 84484; 85025; 85027; 87040; 87077; 87086; 87186; 87324; 87449; 87502; 87811; 93005; 94640; 96361; 96374; 97110; 97116; 97163; 97167; 97530; 97535; 99285; 99406; Q9967

== ENCOUNTER 2025-10-06 08:59 | Inpatient (IN) | payer OTHER, SELFPAY ==
[2025-10-05 19:31] VITALS: BP 109/65
[2025-10-05 19:55] LABS: Hematocrit 42.2 % (39.0-52.0); Hemoglobin 13.1 g/dL (13.0-18.0); Mean Corp Hgb Conc. 31.0 g/dL (33.0-37.0); Mean Corpuscular Volume 91.9 fL (80.0-94.0); Nucleated Red Blood Cells % 0 % (-); Platelet Count 136 10^3/uL (130-400); Red Cell Dist. Width 13.3 % (11.5-14.5)
[2025-10-05 20:15] LABS: ALT (SGPT) 12 U/L (0-50); AST (SGOT) 15 U/L (17-59); Albumin 3.0 g/dl (3.5-5.0); Alkaline Phosphatase 117 U/L (38-126); Blood Urea Nitrogen 23 mg/dl (9-20); Calcium 8.2 mg/dl (8.4-10.2); Carbon Dioxide 33 mmol/L (22-30); Chloride 97 mmol/L (98-107); Glucose 180 mg/dl (70-99); Potassium 4.1 mmol/L (3.5-5.1); Sodium 133 mmol/L (135-145); Total Protein 5.3 g/dl (6.3-8.2); eGFR > 60.00
[2025-10-05 20:25] LABS: Troponin I 0.028 ng/ml
[2025-10-06] VITALS (17 sets, daily range): BP systolic 103–165; BP diastolic 39–79; PULSE 85; O2SAT 98; BMI 20.4
[2025-10-06] MEDS: FLOMAX 0.4 MG PO ×2 (02:57→21:22)
--- NOTE | 2025-10-06 03:37 | ED.GENMED ---
History of Present Illness
General
Chief Complaint: Weakness
Source: patient
Exam Limitations: none
Time Seen by Provider: 10/06/25 03:34
Nursing documentation reviewed up to this point in time: agreed with
History of Present Illness
History of Present Illness:
This is a 84-year-old male with past medical history of COPD on 2 L nasal cannula, CHF, A-fib, diabetes, presents to the ER today with concerns of profound weakness, lightheadedness, and dizziness. He reports that his symptoms have been ongoing
since his when he was admitted but thought that he would feel better if he went home. He was admitted last week for COPD exacerbation and recurrent falls with multiple presyncopal episodes. He also started to develop burning and pain with
urination at home and felt fevers but noted his temperature at home was 100 F. He reports that he is too weak to stay at home. He denies flank pain. He denies abdominal pain. He denies any nausea or vomiting.
Past History
Past History
ED Past Medical History: Cancer, COPD, HTN, Hypercholesterolemia, NIDDM and Other (COVID pneumonitis January 2022)
ED Past Surgical History: Cholecystectomy and Urological
Social History
Tobacco: Former smoker
Alcohol: None
Personal:
Living: alone
Employment: Retired
Family History
Family History: Other (Noncontributory)
Review of Systems
Review of Systems
All Other Systems: ROS reviewed and negative except as documented in HPI and ROS
Phy Exam
Physical Exam
Physical Exam:
General: Patient is well appearing and in no acute distress; non-toxic
Skin: Warm and dry, no rashes or lesions
Head: Normocephalic, atraumatic
Eyes: Sclera non-icteric. EOMs intact.
Cardiac: Heart rate irregularly irregular, no murmurs
Peripheral Vascular: No lower extremity swelling or edema
Pulm: Normal respiratory effort, no wheezes, rales, or rhonchi
Abdomen: No abdominal tenderness to palpation, no CVA tenderness b/l
Neuro: CN II-XII intact, no focal neurologic deficits.
Psychiatric: Appropriate mood and affect.
Course
Orders/Labs/Results
Orders:
Orders
10/05/25 19:39
Electrocardiogram (*1) Urgent
Reason for Study: Other
Other Reason for Exam: Respiratory Distress
Cardiac Monitoring- Treatment ONCE
EKG- Treatment ONCE
IV Insert/Care/Rem.- Treatment PRN
CR Chest - 2 Views Urgent
Comment:
Reason For Exam: respiratory distress
O2 Therapy [RESP] Urgent
Titrate/Wean O2 to maintain O2 sat greater than (%): 93
Special Instructions: TO MAINTAIN CONTINUOUS O2 SATS >/= 93%
Pulse Ox/cont/shift [RESP] Urgent
Quantity: 1
Special Instructions: continuous pulse ox
10/05/25 19:44
Complete Blood Count/With Diff Urgent
Comprehensive Metabolic Panel Urgent
NT-proBNP Urgent
Troponin I Urgent
10/06/25 02:53
Tamsulosin [Flomax] 0.4 mg PO NOW STA
10/06/25 03:51
Urinalysis Reflex To Culture Urgent
Date Specimen was Collected: 10/06/25
Time Specimen was Collected: 03:48
Urine Microscopic Reflex Cult Urgent
Urine Culture Urgent
KRISTEN Source: U
Specimen Description:
Date Specimen was Collected: 10/06/25
Time Specimen was Collected: 03:48
10/06/25 05:17
Meropenem [Merrem] 1,000 mg IV NOW STA
10/06/25 05:33
Sterile Water [Sterile Water For Injection] 20 ml .ROUTE .STK-MED
10/06/25 07:01
Case Management Consult ONCE
Case Management Consult: Discharge Planning
Abnormal Lab Results
10/05/25 10/06/25
19:44 03:51
RBC 4.59 L 10^6/uL
(4.70-6.10)
MCHC 31.0 L g/dL
(33.0-37.0)
Abs Immat Gran (auto) 0.1 H 10^3/uL
(0-0.05)
Absolute Neuts (auto) 8.3 H 10^3/uL
(1.4-6.5)
Absolute Lymphs (auto) 0.4 L 10^3/uL
(1.2-3.4)
Absolute Monos (auto) 1.0 H 10^3/uL
(0.1-0.6)
Immature Gran % 0.9 H %
(0-0.5)
Neutrophils % 83.9 H %
(42.2-75.2)
Lymphocytes % 4.5 L %
(20.5-51.1)
Monocytes % 9.9 H %
(1.7-9.3)
Sodium 133 L mmol/L
(135-145)
Chloride 97 L mmol/L
(98-107)
Carbon Dioxide 33 H mmol/L
(22-30)
BUN 23 H mg/dl
(9-20)
Creatinine 0.5 L mg/dL
(0.7-1.3)
Glucose 180 H mg/dl
(70-99)
Calcium 8.2 L mg/dl
(8.4-10.2)
AST 15 L U/L
(17-59)
Total Protein 5.3 L g/dl
(6.3-8.2)
Albumin 3.0 L g/dl
(3.5-5.0)
Ur Occult Blood Reflex 4+ A
(Negative)
Urine Nitrite (Reflex) Positive A
(Negative)
Leukocyte Esterase Rfl 3+ A
(Negative)
Urine RBC 26-30 A /HPF
(0-2)
Urine WBC (Reflex) 50-60 A /HPF
(0-5)
Urine Bacteria (Reflex) Many A
(Negative)
Urine Glucose 1+ A
(Negative)
Urine Albumin (Reflex) 2+ A
(Neg - Trace)
10/05/25 19:44
10/05/25 19:44
Vital Signs
Initial and Last Documented VS:
Initial Vital Signs
Temp Pulse Resp BP Pulse Ox
99.2 F 123 28 109/65 95
10/05/25 19:31 10/05/25 19:31 10/05/25 19:31 10/05/25 19:31 10/05/25 19:31
Last Documented Vital Signs
Temp Pulse Resp BP Pulse Ox
99.2 F 89 15 123/65 95
10/05/25 19:31 10/06/25 05:45 10/06/25 05:45 10/06/25 05:00 10/06/25 05:46
MDM/Problems Addressed
Differential Diagnosis Includes:
ddx include UTI, cardiac arrhythmia, COPD exacerbation, heart failure exacerbation, ambulatory dysfunction
MDM/Problems Addressed:
This is a 84-year-old male with past medical history of COPD on 2 L nasal cannula, CHF, A-fib, diabetes, presents to the ER today with concerns of profound weakness, lightheadedness, and dizziness. He reports that his symptoms have been ongoing
since his when he was admitted but thought that he would feel better if he went home and so he left AMA. He reports that he has pain with urination and felt like he developed a fever however he is afebrile upon arrival to the ER. He notes some
continued dizziness and he did have tachycardia with A-fib upon arrival. His heart rate since come down. He is not anticoagulated due to frequent falls. On physical exam, he appears weak and appears to have increased respiratory rate. He is on 2
L nasal cannula but we had to increase this to 3 for more support. He had positive urine culture last week but was not treated because he had no UTI symptoms. Considering symptoms now, and based on urine culture necessity, will initiate meropenem.
He has no leukocytosis. Chemistry reviewed, his labs are generally at baseline. His proBNP is slightly increased from prior. Patient denies any lower extremity edema. Will admit for treatment of UTI as well as continued management of arrhythmia
and persistent lightheadedness. Dr. Traore aware of case and treatment plan.
Chronic conditions affecting care:
afib, renal stones, GERD, CHF, HTN, HLP
*Pulse Oximetry
SaO2: 92
Nasal Cannula flow liters per minute: 2
Patient hypoxic: yes
Comment: 2L nasal cannula
*Critical Care Note
Total Time (30-74mins, 75-104mins- exclusive of procedures): Not Applicable
Data Reviewed
Review of Other/Old Records Reveals: Records (Reviewed discharge summary from 10/05/2025, reviewed ER physician documentation from 09/30/2025)
Source: patient and records
ED Attending Note
-
Portions of this chart may have been created with voice recognition software.� Occasional wrong word or��sound alike� substitutions may have occurred due to the inherent limitations of voice recognition software.
Discharge Plan
Departure
Patient Disposition: Admit
Date of Disposition: 10/06/25
Time of Disposition: 07:12
Admit to: Med/Surg
Presentation/result/management discussed w/ accepting MD/DO: Hospitalist
Condition: Fair
Discharge Problem:
Urinary tract infection, Weakness, Pre-syncope
Prescriptions:
No Action
atorvastatin 40 MG tablet
40 mg PO DAILY Qty: 30 0RF
diltiazem HCl 120 MG capsule,extended release 24hr
120 mg PO DAILY Qty: 30 0RF
albuterol sulfate 2.5 mg /3 mL (0.083 %) Solution For Nebulization
2.5 mg INHALATION R Q6HPRN PRN (Reason: wheezing)
budesonide 0.5 mg/2 mL Suspension For Nebulization
0.5 mg INHALATION R BID
tamsulosin 0.4 MG capsule
0.4 mg PO BID
omeprazole 20 MG capsule,delayed release(DR/EC)
20 mg PO DAILY PRN (Reason: Gastrointestinal Issue)
Saline Nasal 0.65 % Aerosol,[place]
1 spray intranasal QIDPRN PRN (Reason: dry nares) Qty: 44 0RF
acetaminophen [Tylenol] 325 mg Tablet
650 mg PO Q6H PRN (Reason: pain )
aspirin 81 mg tablet,chewable
81 mg PO DAILY
hydrocortisone acetate 25 mg Suppository
25 mg MS HS Qty: 24 0RF
ipratropium-albuterol 0.5 mg-3 mg(2.5 mg base)/3 mL Solution For Nebulization
3 ml inhalation R Q4HPRN PRN (Reason: SOB/wheezing) Qty: 180 2RF
loperamide 2 mg Capsule
2 mg PO DAILYPRN PRN (Reason: Diarrhea) 7 Days Qty: 7 0RF
Lactobac/Bifidobac [Visbiome]
1 cap PO DAILY 7 Days Qty: 7 0RF
magnesium oxide 400 mg magnesium capsule
400 mg PO DAILY Qty: 7 0RF
gabapentin 300 mg Capsule
300 mg PO TID PRN (Reason: nerve pain)
prednisone 10 mg tablet
See Taper PO DAILY Qty: 22 0RF
Taper: Prednisone DC Starting at 40 mg daily
40 mg Daily for 1 Day and 0 Hour
30 mg Daily for 3 Days and 0 Hour
20 mg Daily for 3 Days and 0 Hour
10 mg Daily for 3 Days and 0 Hour
Referrals:
Greg Fam MD [Family Provider, Urology]
Interventions
Interventions:
*General Assessment Last Done: 10/05/25 19:31
*Neglect/Abuse Screening Last Done: 10/05/25 19:31
*ED COVID-19 Vaccine History Last Done: 10/05/25 19:31
*ED Influenza Vaccine History Last Done: 10/05/25 19:31
[facility] Fall Risk Assessment Tool Last Done: 10/06/25 01:23
*Risk Screen - Suicide (C-SSRS) Last Done: 10/05/25 19:31
ED- Cardiac Assessment Last Done: 10/06/25 01:21
ED- Neurological Assessment Last Done: 10/06/25 01:21
ED- Pulmonary Assessment Last Done: 10/06/25 01:21
Discharge Date and Time
Print Language: NICARAGUAN
[2025-10-06 04:02] LABS: Urine Character Clear (Clear)
[2025-10-06 04:55] LABS: Urine Red Blood Cell 26-30 /HPF (0-2); Urine White Cell 50-60 /HPF (0-5)
[2025-10-06] MEDS: MERREM 1000 MG IV (05:44)
--- NOTE | 2025-10-06 09:05 | EDCM ---
Reviewed chart, met with pt bedside in ED. Lives alone in apartment at [facility], has elevator access.
Needs assistance with ADLs, personal care. 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
PMH COPD, CHF, A fib, DM, Cancer, HTN, Hypercholesterolemia
Pt was admitted 10/31 to 10/05, plan had been SNF but pt left AMA. [facility] referral made.
Pt has electric wheelchair, O2 from [employer] -5L concentrator, portable O2 and nebulizer, normally wears 2L NC
Does not think he has prescription coverage.
No hx VN, hx [facility]
PCP: Greg Fam
Pharmacy: [facility]
Discharge plan pending ongoing medical evaluation, Pt agreeable to discharge to SNF for STR.
--- NOTE | 2025-10-06 09:22 | HPS.HSE ---
Addendum entered and electronically signed by Lyndsey Bishop MD 10/06/25 15:50:
I personally performed a history and physical exam of the patient and discussed management with the resident. I reviewed the resident's note and agree with the documented findings and plan of care HPI/CC.
GENERAL: well developed, well nourished, male in no apparent distress
HEENT: NC/AT--O2 NC
HEART: regular rate and rhythm, +S1, +S2
LUNGS : clear to auscultation bilaterally
ABDOM: soft, nontender, nondistended, + bowel sounds
EXT: no cyanosis, clubbing--trace edema bilaterally
NEUROLOGIC: grossly intact
Pseudomonas UTI -- from last admission--no symptoms until he got home and 'couldn't pee'--returned with symptoms and now started on meropenem--consult ID--apprec input--cipro--follow EKG for QT
Acute hypoxic respiratory failure last admission concern was for COPD exacerbation --ordered prednisone taper but pt refused due to his sugars that will increase--so placed back on outpt prednisone that we had on his home med list of 20mg--now he
was really on 10mg as per ID documentation from his PCP
Falls- refused SNF and left AMA--await PT/OT
Paroxysmal atrial fibrillation- Remains on home diltiazem, not anticoagulated- bled 2-3x, anticoagulation could be considered but will defer to his primary cardiology team; Patient not interested at this time- Continue on telemetry
PMH of recent septic shock (2 admissions ago) in the setting of stone related sepsis with complicated UTI & pyelonephritis - shock state resolved as of 09/17- GNR bacteremia due to E. coli UTI- E. coli septic shock - sepsis complicated by HALI,
obstructive uropathy - etiology of sepsis likely acute right sided pyelonephritis with associated nephrolithiasis- denies flank pain, dysuria to me at this time
Type 2 DM- sliding scale insulin
HLD- atorvastatin
HFpEF without exacerbation- monitor I/Os, daily weights
GERD-PPI continued
right lower pole renal mass on recent CT- follow-up outpatient
History of prostate cancer with history of prior radiation/urinary retention--Flomax continued-bladder scan
Wounds present on last admission and again on this one--MASD- Sacrum pressure injury stage 2, MASD of the groin- bilateral heels boggy and under bandages
Code status-- Full
DVT proph-- enoxaparin
pt now agreeing to SNF
Original Note:
Family Physician
-
Family Physician: Greg Fam MD
Chief Complaint
-
Trouble with urination
History of Present Illness
This is a 84-year-old male with known past medical history of COPD on chronic 2 L O2 via nasal cannula, chronic HFpEF, paroxysmal A-fib not on any anticoagulation, type 2 diabetes, history of chronic urinary retention, hyperlipidemia, prostate
cancer s/p radiation, sacral pressure injury stage I, GERD, history of shingles, presented with complaints of painful and difficult urination. Also reported that he had fever of 100 F
He was admitted to the hospital for COPD last week however he left AMA yesterday. During his previous visit a urinalysis was performed which did show Pseudomonas however the urinalysis had more than 30 squamous cells and patient was not complaining
of any urinary symptoms on repeated inquiry. He continues to deny any flank pain at this time denies any abdominal pain, denies nausea or vomiting.
He was also advised for rehab during this past admission however he refused to wait for insurance authorization and left AMA.
Medical History
Past Medical History
Past Medical History: Reports Other
Additional Past Medical History:
Chronic respiratory failure with hypoxia, pulmonary emphysema, prostate cancer, BPH, type 2 diabetes, CHF, pulmonary hypertension, COPD, hyperlipidemia, chronic pain syndrome, GERD, postherpetic neuralgia,
Past Surgical History: Reports Other
Social History
Tobacco: Smoker (1/2 pack daily)
Alcohol: None
Drug: None
Living: Alone
Family History
Family History: Not pertinent
Allergies / Home Medications
Allergies reflects when Allergies were last updated in [facility].
Home Medications with original date entered in [facility]
Allergy/Medication List:
Allergies
Allergy/AdvReac Type Severity Reaction Status Date / Time
No Known Allergies Allergy Verified 10/05/25 19:31
Home Medications
atorvastatin 40 mg tablet 40 mg PO DAILY High cholesterol #30 tabs 06/04/23
diltiazem HCl 120 mg capsule,extended release 24 hr 120 mg PO DAILY Arrhythmia #30 caps 06/04/23
albuterol sulfate 2.5 mg/3 mL (0.083 %) solution for nebulization 2.5 mg inhalation R Q6HPRN PRN wheezing 11/07/23
budesonide 0.5 mg/2 mL suspension for nebulization 0.5 mg inhalation R BID Lung/Breathing Issues 05/13/24
omeprazole 20 mg capsule,delayed release 20 mg PO DAILYPRN PRN Gastrointestinal Issue 05/13/24
tamsulosin 0.4 mg capsule 0.4 mg PO BID Urinary issue 05/13/24
sodium chloride 0.65 % nasal spray aerosol (Saline Nasal) 1 spray intranasal QIDPRN PRN dry nares #44 mL 07/15/25
acetaminophen 325 mg tablet (Tylenol) 650 mg PO Q6HPRN PRN mild pain 09/12/25
aspirin 81 mg chewable tablet 81 mg PO DAILY Blood Clot Prevention/Tx 09/16/25
ipratropium 0.5 mg-albuterol 3 mg (2.5 mg base)/3 mL nebulization soln 3 ml inhalation R Q4HPRN PRN SOB/wheezing #180 mL 09/23/25
loperamide 2 mg capsule 2 mg PO DAILYPRN PRN Diarrhea 7 days #7 caps 09/23/25
gabapentin 300 mg capsule 300 mg PO TIDPRN PRN nerve pain 09/30/25
Lactobac no.2-Bifidobac no.1-S. thermo 112.5 billion cell capsule (Visbiome) 1 cap PO DAILY Supplement 10/06/25
hydrocortisone acetate 25 mg rectal suppository 25 mg OH HS 10/06/25
magnesium oxide 400 mg PO DAILY Supplement 10/06/25
prednisone 10 mg tablet 10 mg PO DIRECTED 10/06/25
sitagliptin phosphate 100 mg tablet (Januvia) 100 mg PO DAILY Diabetes 10/06/25
Review of Systems
-
History Source: Patient
Constitutional: Reports No Symptoms
EENT: Reports No Symptoms
Respiratory: Reports No Symptoms
Cardiac: Reports No Symptoms
Abdomen/GI: Reports No Symptoms
: Reports Dysuria and Difficulty Voiding
Musculoskeletal: Reports No Symptoms
Skin: Reports No Symptoms
Neurological: Reports No Symptoms
Endocrine: Reports No Symptoms
Hematologic/Lymphatic: Reports No Symptoms
Psych: Reports No Symptoms
Physical Exam
Vital Signs
Vital Signs
Temp Pulse Resp BP Pulse Ox
99.2 F 88 15 125/67 95
10/05/25 19:31 10/06/25 08:00 10/06/25 05:45 10/06/25 08:00 10/06/25 05:46
Physical Exam
General: Well Developed, Well Nourished and No Apparent Distress
HEENT: NormoCephalic and Moist mucous membranes
Respiratory: Wheezes, Non Labored Respirations and Other (On chronic O2 2 L)
Cardiac: S1/S2 and Regular Rhythm
GI: Soft, Non Tender and Non Distended
Musculoskeletal: Other (Trace bilateral edema)
Neuro: Awake, Alert, Oriented and Nonfocal/grossly intact
Psych: Calm
Laboratory Results
-
10/05/25 19:44
10/05/25 19:44
Laboratory Results
Total Bilirubin 0.5 mg/dl (0.2-1.3) 10/05/25 19:44
AST 15 U/L (17-59) L 10/05/25 19:44
ALT 12 U/L (0-50) 10/05/25 19:44
Alkaline Phosphatase 117 U/L (38-126) 10/05/25 19:44
Troponin I 0.028 ng/ml 10/05/25 19:44
Data Reviewed
-
Diagnostic Radiology: Report Reviewed by me, Discussed with Physician and Discussed with Patient
Lab Data: Labs Reviewed by me, Discussed with Physician and Discussed with Patient
Impression/Plan
-
IMPRESSION:
84 yo M PMH COPD on 2L O2, paroxysmal atrial fibrillation not on anticoagulation, HFpEF, essential HTN, HLD, T2DM, GERD, hx of shingles chronic urinary retention with recent admission for septic shock from E coli pyelonephritis/UTI, prostate cancer
s/p radiation returned with c/o difficulty urination after leaving [facility] on 10/05/2025 when he was admitted for COPD exacerbation
PLAN:
# Acute UTI
#History of prostate cancer with history of prior radiation
#urinary retention
-Recent urine culture with Pseudomonas; repeat blood culture
-Flomax continued
-Status post 1 dose of meropenem in the emergency; will continue meropenem for now given the sensitivities from the previous culture
-Consult ID
#Acute hypoxic respiratory failure concern for COPD exacerbation
- Continue with prn DuoNebs and scheduled budesonide nebulizer
- Continue with prednisone taper 40 for today and then 30 mg for 3 days from tomorrow and decreasing by 10 mg every 3 days
#Recent Fall
- CT Head noncant and CT Cspine from 09/30/2025 unremarkable for acute process
- fall precautions
#Paroxysmal atrial fibrillation
- Remains on home diltiazem, not anticoagulated
- HAS BLED 2-3, anticoagulation could be considered but will defer to his primary cardiology team
#PMH recent septic shock in the setting of stone related sepsis with complicated UTI & pyelonephritis - shock state resolved as of 09/17
- GNR bacteremia due to E. coli UTI
- E. coli septic shock - sepsis complicated by HALI, obstructive uropathy - etiology of sepsis likely acute right sided pyelonephritis with associated nephrolithiasis
- denies flank pain at this time
#T2DM
- sliding scale insulin
# Hyperlipidemia
- Continue with home atorvastatin
#HFpEF without exacerbation
- monitor I/Os, daily weights
#GERD
- Continue with omeprazole
#Hemorrhoids
- Home hydrocortisone rectal
#Right lower pole renal mass on recent CT
- follow-up outpatient
- denies flank pain at this time
#Wounds present on admission
#MASD
- Sacrum pressure injury stage 2, MASD of the groin
- bilateral heels boggy and under bandages
Code status: DNR
DVTppx: enoxaparin
Diet: Regular per patient's request
[2025-10-06] MEDS: DELTASONE 40 MG PO (10:27)
[2025-10-06] MEDS: LOW STRENGTH ASPIRIN 81 MG PO (10:28)
[2025-10-06] MEDS: VISBIOME 1 CAP PO (10:28)
[2025-10-06] MEDS: CARDIZEM CD 120 MG PO (10:28)
[2025-10-06] MEDS: LIPITOR 40 MG PO (10:28)
[2025-10-06] MEDS: MAGNESIUM OXIDE 400 MG PO (10:28)
--- NOTE | 2025-10-06 11:22 | CM ---
Patient accepted for placement at [facility] possibly for . CM will send updated auth request to [facility] and follow with physician medial treatment plan. CM will continue to follow for discharge planning needs.
Plan; placement
--- NOTE | 2025-10-06 11:37 | CON.ID ---
Consultation
-
Date/Time Consultation Requested: 10/06/25 9:21
Date/Time Consultation Performed: 10/06/25 11:38
Requesting Provider: Dr Aguilar
Performing Provider: Dr Huynh
Reason for Consultation: UTI
Chief Complaint / Past History
Chief Complaint
weakness
History of Present Illness
Mr Gonzalez is an 84 year old male with past medical history notable for COPD on 2LNC reportedly on chronic prednisone 20 mg, CHF, renal stones, prostate cancer prior radiation, who presented to the ER today for weakness, lightheadedness, dizziness.
He was admitted last week for COPDe with recurrent falls and multiple presyncopal episodes, he left AMA reporting he believed it would resolved however it persisted. After he returned home he developed dysuria and subjective fevers. No flank pain,
abdominal pain, nausea or vomiting. 09/30 he had UA with pyuria and high number of squamous cells, urine culture with 100K Pseudomonas sensitive to quinolones. Because he did not have symptoms of UTI at that time he was not treated. He was not
willing to attend rehab though it was recommended.
Since arrival this visit he has been afebrile, bp stable, wbc 9.8, hgb 13, plt 136, L shift is present, Na 133, cr 0.5, bnp 1830, 10/06 UA 50-60 wbc/hpf and few squamous cells, 10/05 CXR: symmetrically hyeprinflated, COPD, repeat urine cultue
pending, 09/30 blood cultures finalized negative, QTcB 487, he is currently on prednisone 40 mg and has received meropenem, ID is consutled for assistance with management.
Past History
Additional Past Medical History:
Chronic respiratory failure with hypoxia, pulmonary emphysema, prostate cancer, BPH, type 2 diabetes, CHF, pulmonary hypertension, COPD, hyperlipidemia, chronic pain syndrome, GERD, postherpetic neuralgia, noncompliance
Additional Past Surgical History:
Cholecystectomy
Allergy History:
No Known Allergies Allergy (Verified 10/05/25 19:31)
Medications Reviewed: Yes
Social History
Tobacco: Smoker
Alcohol: None
Drug: None
Family History
Family History: Not Pertinent
Review of Systems
Review of Systems
Constitutional: Reports No Symptoms
EENT: Reports No Symptoms
Respiratory: Reports No Symptoms
Cardiac: Reports No Symptoms
Abdomen/GI: Reports No Symptoms
: Reports Dysuria and Difficulty Voiding
Musculoskeletal: Reports No Symptoms
Skin: Reports No Symptoms
Neurological: Reports No Symptoms
Endocrine: Reports No Symptoms
Hematologic/Lymphatic: Reports No Symptoms
Psych: Reports No Symptoms
Vital Signs
Temp Pulse Resp BP Pulse Ox
99.2 F 100 22 131/68 90
10/05/25 19:31 10/06/25 10:28 10/06/25 10:30 10/06/25 10:28 10/06/25 10:30
Physical Exam
Physical Exam
Constitutional: No Acute Distress
Cardiovascular: Regular Rate and S1/S2; Negative Murmur or Rub
Pulmonary: Clear, Symmetric, Coarse and Other (pursed lip breathing after doing pulmonary exam); Negative Wheezes or Rhonchi
Gastrointestinal: Soft, Non Tender, Non Distended and Normal Bowel Sounds
Genito-Urinary: Suprapubic Tenderness; Negative CVA Tenderness
Skin: Warm and Dry; Negative Rash or Jaundice
Lab / Diagnostic Study Results
10/05/25 19:44
10/05/25 19:44
Abs Immat Gran (auto) 0.1 10^3/uL (0-0.05) H 10/05/25 19:44
Absolute Neuts (auto) 8.3 10^3/uL (1.4-6.5) H 10/05/25 19:44
Absolute Lymphs (auto) 0.4 10^3/uL (1.2-3.4) L 10/05/25 19:44
Absolute Monos (auto) 1.0 10^3/uL (0.1-0.6) H 10/05/25 19:44
Absolute Basos (auto) 0.0 10^3/uL (0-0.2) 10/05/25 19:44
Immature Gran % 0.9 % (0-0.5) H 10/05/25 19:44
Neutrophils % 83.9 % (42.2-75.2) H 10/05/25 19:44
Lymphocytes % 4.5 % (20.5-51.1) L 10/05/25 19:44
Monocytes % 9.9 % (1.7-9.3) H 10/05/25 19:44
Eosinophils % 0.7 % (0-6) 10/05/25 19:44
Basophils % 0.1 % (0-2) 10/05/25 19:44
Ur Squamous Epith Cells 6-10 /LPF (Few) 10/06/25 03:51
Microbiology Results
Micro:
10/06/25 03:51 Urine Culture - Pending
Urine
Urine Culture Final 10/03/25-1423
CC: Greater than 100,000 CFU/ML Pseudomonas aeruginosa
Organism 1 Pseudomonas aeruginosa
1. Pseudomonas aeruginosa
M.I.C. RX
--------- ---
Aztreonam <=4 S
Cefepime 4 S
Ceftazidime 4 S
Ciprofloxacin <=0.25 S
Meropenem 2 S
Piperacillin/Tazobactam <=8 S
Tobramycin <=2 S
10/05 QTcB 487
Assessment / Plan
UTI
Prostate cancer with prior radiation
Borderline prolonged QTcB
COPD on chronic steroids
- no need for blood cultures for UTI from ID perspective
- 09/30 urine culture Pseudomonas
- QTcB 487
- Ciprofloxacin 500 mg PO BID
- hold magnesium while on ciprofloxacin - patient is not sure why he was on it
- repeat EKG in the AM to reassess QTc, may require cardiology input if >500
COPDe
- management per IM service
- on prednisone 40 mg PO qday
- when last seen by PCP Dr Luther Allen 07/28/25 he was on chronic prednisone 10 mg PO qday
[2025-10-06] MEDS: TYLENOL 650 MG PO (15:08)
[2025-10-06] MEDS: NEURONTIN 300 MG PO (15:08)
[2025-10-06 15:48] LABS: Glucose - Point of Care 201 mg/dl (70-99)
[2025-10-06] MEDS: DUONEB 3 ML INH ×2 (15:51→19:50)
[2025-10-06] MEDS: NOVOLOG FLEXPEN-LOW RESISTANCE 2 UNITS SC (16:39)
--- NOTE | 2025-10-06 16:45 | PTCARENOTE ---
Pt is cooperative but easily agitated. Pt apneic when sleeping and desats into 80s. Pt says he knows he has sleep apnea but will not wear cpap - says he can not tolerate it.
[2025-10-06] MEDS: CIPRO 500 MG PO (18:34)
[2025-10-06] MEDS: LOVENOX 40 MG SC (18:34)
[2025-10-06] MEDS: PULMICORT 0.5 MG INH (19:50)
[2025-10-06 21:35] LABS: Glucose - Point of Care 252 mg/dl (70-99)
[2025-10-07] MEDS: SENOKOT-S PO ×4 (01:42→19:25)
[2025-10-07] MEDS: SENOKOT-S 1 TABLET PO ×2 (04:31→22:23)
[2025-10-07] MEDS: TYLENOL 650 MG PO (04:58)
[2025-10-07] MEDS: CIPRO 500 MG PO ×2 (05:01→18:35)
[2025-10-07 06:00] VITALS: BMI 19.6
[2025-10-07 07:26] LABS: Glucose - Point of Care 118 mg/dl (70-99)
[2025-10-07 07:38] LABS: Hematocrit 38.6 % (39.0-52.0); Hemoglobin 11.9 g/dL (13.0-18.0); Mean Corp Hgb Conc. 30.8 g/dL (33.0-37.0); Mean Corpuscular Volume 91.7 fL (80.0-94.0); Nucleated Red Blood Cells % 0 % (-); Platelet Count 158 10^3/uL (130-400); Red Cell Dist. Width 13.3 % (11.5-14.5)
[2025-10-07 07:45] LABS: ALT (SGPT) 11 U/L (0-50); AST (SGOT) 14 U/L (17-59); Albumin 2.6 g/dl (3.5-5.0); Alkaline Phosphatase 82 U/L (38-126); Blood Urea Nitrogen 22 mg/dl (9-20); Calcium 7.7 mg/dl (8.4-10.2); Carbon Dioxide 32 mmol/L (22-30); Chloride 99 mmol/L (98-107); Estimated Creatinine Clearance 76 ml/min; Glucose 122 mg/dl (70-99); Potassium 3.8 mmol/L (3.5-5.1); Sodium 135 mmol/L (135-145); Total Protein 4.8 g/dl (6.3-8.2); eGFR > 60.00
[2025-10-07] MEDS: DUONEB 3 ML INH ×3 (07:49→23:04)
[2025-10-07] MEDS: PULMICORT 0.5 MG INH ×2 (07:49→20:09)
[2025-10-07 07:51] VITALS: BP 129/67
--- NOTE | 2025-10-07 08:10 | W.PN.HOSP.TC ---
Addendum entered and electronically signed by Lyndsey Bishop MD 10/07/25 17:52:
I saw and evaluated the patient independently. I reviewed and discussed the resident�s note and agree with findings and plan as documented by Dr. Aguilar.
GENERAL: well developed, well nourished, male in no apparent distress
HEENT: NC/AT--O2 NC
HEART: regular rate and rhythm, +S1, +S2
LUNGS : clear to auscultation bilaterally
ABDOM: soft, nontender, nondistended, + bowel sounds
EXT: no cyanosis, clubbing--trace edema bilaterally
NEUROLOGIC: grossly intact
Pseudomonas UTI -- from last admission--no symptoms until he got home and 'couldn't pee'--returned with symptoms and now started on cipro--apprec ID--follow EKG for QT --apprec cards--waiting for steady state cipro and following EKGs, hopeful d/c in
AM?
Acute hypoxic respiratory failure last admission concern was for COPD exacerbation --ordered prednisone taper but pt refused due to his sugars that will increase--so placed back on outpt prednisone that we had on his home med list of 20mg--now he
was really on 10mg as per ID documentation from his PCP
Falls- refused SNF and left AMA--await PT/OT
Paroxysmal atrial fibrillation- Remains on home diltiazem, not anticoagulated- bled 2-3x, anticoagulation could be considered but will defer to his primary cardiology team; Patient not interested at this time- Continue on telemetry
PMH of recent septic shock (2 admissions ago) in the setting of stone related sepsis with complicated UTI & pyelonephritis - shock state resolved as of 09/17- GNR bacteremia due to E. coli UTI- E. coli septic shock - sepsis complicated by HALI,
obstructive uropathy - etiology of sepsis likely acute right sided pyelonephritis with associated nephrolithiasis- denies flank pain, dysuria to me at this time
Type 2 DM- sliding scale insulin
HLD- atorvastatin
HFpEF without exacerbation- monitor I/Os, daily weights
GERD-PPI continued
right lower pole renal mass on recent CT- follow-up outpatient
History of prostate cancer with history of prior radiation/urinary retention--Flomax continued-bladder scan
Wounds present on last admission and again on this one--MASD- Sacrum pressure injury stage 2, MASD of the groin- bilateral heels boggy and under bandages
Code status-- Full
DVT proph-- enoxaparin
pt now agreeing to SNF
Original Note:
Today's Communication/Plan
-
cardio consult
continue with steroid taper
Assessment / Plan
Assessment / Plan
84 yo M PMH COPD on 2L O2, paroxysmal atrial fibrillation not on anticoagulation, HFpEF, essential HTN, HLD, T2DM, GERD, hx of shingles chronic urinary retention with recent admission for septic shock from E coli pyelonephritis/UTI, prostate cancer
s/p radiation returned with c/o difficulty urination after leaving [place] on 10/05/2025 when he was admitted for COPD exacerbation
PLAN:
# Acute UTI
#History of prostate cancer with history of prior radiation
#urinary retention
-Recent urine culture with Pseudomonas; repeat culture pending
-Flomax continued
-Status post 1 dose of meropenem in the emergency; currently on cipro from ID with Qtc monitoring
-will consult ID since the QTc is >500 now
#Acute hypoxic respiratory failure concern for COPD exacerbation
- Continue with prn DuoNebs and scheduled budesonide nebulizer
- Continue with prednisone taper 30 mg for 3 days from today and decreasing by 10 mg every 3 days and back to his 10mg daily per ID documentation
#Recent Fall
- CT Head noncant and CT Cspine from 09/30/2025 unremarkable for acute process
- fall precautions
#Paroxysmal atrial fibrillation
- Remains on home diltiazem, not anticoagulated
- HAS BLED 2-3, anticoagulation could be considered but will defer to his primary cardiology team
#PMH recent septic shock in the setting of stone related sepsis with complicated UTI & pyelonephritis - shock state resolved as of 09/17
- GNR bacteremia due to E. coli UTI
- E. coli septic shock - sepsis complicated by HALI, obstructive uropathy - etiology of sepsis likely acute right sided pyelonephritis with associated nephrolithiasis
- denies flank pain at this time
#T2DM
- sliding scale insulin
# Hyperlipidemia
- Continue with home atorvastatin
#HFpEF without exacerbation
- monitor I/Os, daily weights
#GERD
- Continue with omeprazole
#Hemorrhoids
- Home hydrocortisone rectal
#Right lower pole renal mass on recent CT
- follow-up outpatient
- denies flank pain at this time
#Wounds present on admission
#MASD
- Sacrum pressure injury stage 2, MASD of the groin
- bilateral heels boggy and under bandages
Code status: DNR
DVTppx: enoxaparin
Diet: Regular per patient's request
Anticipated Discharge: Within 24 hours
Subjective/Interval History
-
Date of Service: October 07, 2025
AFVSS. Patient states that his painful urination is slightly better. He is able to urinate without difficulty now
Objective Data
-
Labs:
Laboratory Results
10/07/25
06:55
WBC 9.6
Hgb 11.9 L
Hct 38.6 L
Plt Count 158
Sodium 135
Potassium 3.8
Chloride 99
Carbon Dioxide 32 H
BUN 22 H
Creatinine 0.5 L
Glucose 122 H
Calcium 7.7 L
Total Bilirubin 0.5
AST 14 L
ALT 11
Alkaline Phosphatase 82
Vital Signs:
Vital Signs
Temp Pulse Resp BP Pulse Ox
97.6 F 81 20 129/67 97
10/07/25 07:51 10/07/25 07:52 10/07/25 07:52 10/07/25 07:51 10/07/25 07:52
I&O
10/06/25 10/07/25 10/08/25
06:59 06:59 06:59
Intake Total 240 / 240
Output Total 400 / 400
Balance -160 / -160
Review of Systems
-
History Source: Patient
All other systems: Reviewed and negative
Physical Exam
-
General: Well Developed and No Apparent Distress
HEENT: Normocephalic and Atraumatic
Respiratory: Clear to Auscultation (With intermittent wheeze), Wheezes and Non Labored Respirations; Negative Rales, Rhonchi or Accessory Resp Muscle Use
Cardiac: Regular Rhythm and S1/S2; Negative Murmur, Rub or Gallop
GI: Soft, Nontender, Nondistended and Normal Bowel Sounds
Musculoskeletal: No Cyanosis, No Edema and Clubbing
Skin: Warm and Dry; Negative Rash or Jaundice
Neuro: AO x 3, Nonfocal/Grossly Intact and Central Nerve's Intact; Negative Tremors
Psych: Calm
Data Reviewed
-
Labs: Labs Reviewed by me, Discussed with Physician and Discussed with Patient
[2025-10-07 08:48] VITALS: BP 125/60; PULSE 81; O2SAT 97
--- NOTE | 2025-10-07 09:00 | CM ---
Addendum entered by Zahra Agarwal 10/07/25 15:41:
Liaison now called back to state that patient could go to [facility]. However, now pending echo tomorrow. CM sent update to facilities and called to patient family. [facility] would [facility], then [facility]. awaiting physician clarification of discharge.
Original Note:
Pending OT assessment will submit auth for [employer]. Patient accepted to go to [facility] pending authorization. CM will continue to follow for discharge planning needs.
Plan; SNF pending auth
--- NOTE | 2025-10-07 09:52 | CM ---
Authorization for skilled rehab initiated in [employer]
Pended reference #[id number]
per facility no bed at [facility], [place], looking into other options.
[2025-10-07] MEDS: NOVOLOG FLEXPEN-LOW RESISTANCE SC (10:41)
[2025-10-07] MEDS: LOW STRENGTH ASPIRIN 81 MG PO (10:43)
[2025-10-07] MEDS: DELTASONE 40 MG PO (10:43)
[2025-10-07] MEDS: LIPITOR 40 MG PO (10:43)
[2025-10-07] MEDS: FLOMAX 0.4 MG PO ×2 (10:46→19:23)
[2025-10-07] MEDS: VISBIOME 1 CAP PO (10:47)
[2025-10-07] MEDS: CARDIZEM CD 120 MG PO (10:49)
--- NOTE | 2025-10-07 11:10 | CON.CAR ---
Consultation
Consultation Request
Date/Time Consultation Requested: 10/07/25 1056
Date/Time Consultation Performed: 10/07/25 1100
Requesting Provider: Dr. Aguilar
Performing Provider: Lizz CHRISTINE for Dr. Patricio
Reason for Consultation: prolonged QTc
Medical History
-
Chief Complaint: weakness, light-headedness, fever, nausea, trouble urinating
History of Present Illness:
84 y/o male with COPD on 2L O2, type II DM, hypertension, dyslipidemia, GERD, urinary issues on tamsulosin, bifascicular block (noted on previous EKG's), and smoking. Also on hospitalist note history of AFIB (not on AC) and CHF (patient denies any
cardiac history, specifically AFIB or CHF, and reports he does not have a press set up- not on any CHF meds)- I do not see any objective evidence of AFIB on my review of EKG's and previous available strips. He was recently hospitalized twice- once
for septic shock related to UTI, next for suspected COPD exacerbation (after he was found on the ground). He left AMA 10/05/25. He came back overnight because he felt light-headed, weak, nausea, fever, and urinary difficulty. He denies any syncope.
He thinks he woke up on the ground recently because his O2 fell out overnight and his legs gave out in the AM when he stood up. He is feeling improved today. He has received antibiotics.
Past Medical History
Past Medical History: Cancer (history of prostate cancer), COPD, GERD, HTN, Hypercholesterolemia, NIDDM and Other (as above)
Social History
Tobacco: Smoker
Living: Alone (aides come in daily)
Family History
Family History: Reviewed & Not Pertinent
Allergies / Home Medications
Allergy/AdvReac Type Severity Reaction Status Date / Time
No Known Allergies Allergy Verified 10/05/25 19:31
�Medication �Instructions �Recorded �Confirmed �Type
atorvastatin 40 mg tablet 40 mg PO DAILY High cholesterol 06/04/23 10/06/25 Rx
#30 tabs
diltiazem HCl 120 mg 120 mg PO DAILY Arrhythmia #30 caps 06/04/23 10/06/25 Rx
capsule,extended release 24 hr
albuterol sulfate 2.5 mg/3 mL 2.5 mg inhalation R Q6HPRN PRN 11/07/23 10/06/25 History
(0.083 %) solution for nebulization wheezing
budesonide 0.5 mg/2 mL suspension 0.5 mg inhalation R BID 05/13/24 10/06/25 History
for nebulization Lung/Breathing Issues
omeprazole 20 mg capsule,delayed 20 mg PO DAILYPRN PRN 05/13/24 10/06/25 History
release Gastrointestinal Issue
tamsulosin 0.4 mg capsule 0.4 mg PO BID Urinary issue 05/13/24 10/06/25 History
sodium chloride 0.65 % nasal spray 1 spray intranasal QIDPRN PRN dry 07/15/25 10/06/25 Rx
aerosol (Saline Nasal) nares #44 mL
acetaminophen 325 mg tablet 650 mg PO Q6HPRN PRN mild pain 09/12/25 10/06/25 History
(Tylenol)
aspirin 81 mg chewable tablet 81 mg PO DAILY Blood Clot 09/16/25 10/06/25 History
Prevention/Tx
ipratropium 0.5 mg-albuterol 3 mg 3 ml inhalation R Q4HPRN PRN 09/23/25 10/06/25 Rx
(2.5 mg base)/3 mL nebulization SOB/wheezing #180 mL
soln
loperamide 2 mg capsule 2 mg PO DAILYPRN PRN Diarrhea 7 09/23/25 10/06/25 Rx
days #7 caps
gabapentin 300 mg capsule 300 mg PO TIDPRN PRN nerve pain 09/30/25 10/06/25 History
Lactobac no.2-Bifidobac no.1-S. 1 cap PO DAILY Supplement 10/06/25 10/06/25 History
thermo 112.5 billion cell capsule
(Visbiome)
hydrocortisone acetate 25 mg 25 mg KS HS 10/06/25 10/06/25 History
rectal suppository
magnesium oxide 400 mg PO DAILY Supplement 10/06/25 10/06/25 History
prednisone 10 mg tablet 10 mg PO DIRECTED 10/06/25 10/06/25 History
sitagliptin phosphate 100 mg 100 mg PO DAILY Diabetes 10/06/25 10/06/25 History
tablet (Januvia)
Review of Systems
-
History Source: Patient
All other systems: Negative unless noted
Constitutional: Other (LH, fever)
Abdomen/GI: Nausea
Neurological: Weakness
Physical Exam
Vital Signs
Temp Pulse Resp BP Pulse Ox
97.6 F 81 20 129/67 97
10/07/25 07:51 10/07/25 07:52 10/07/25 07:52 10/07/25 07:51 10/07/25 08:00
Lab Results
10/07/25 06:55
10/07/25 06:55
Troponin I 0.028 ng/ml 10/05/25 19:44
Nxa-X-Ovkcvxpcjet Pept 1830 pg/ml 10/05/25 19:44
Physical Exam
General: Well Developed, Well Nourished and No Apparent Distress
HEENT: Normocephalic and Anicteric
Respiratory: Other (diminished to bases; on O2 by NC)
Cardiac: Regular Rhythm
Musculoskeletal: No Edema
Skin: Warm and Dry
Neuro: AO x 3
Psych: Calm
Impression / Plan
-
UTI:
-on abx per ID- there is question regarding Cipro since QTC is prolonged- see below
Prolonged QTc:
-Manual QTC is 495 ms this AM and he has bifascicular block. Manual 473 ms yesterday.
-follow on telemetry (order added), and repeat EKG in AM
-recent echo as noted
-will discuss with press set up
COPD:
-on O2 by NC
-on steroids, breathing tx
HTN:
-stable on CCB- continue
Bifascicular block:
-denies any syncope
-follow telemetry
Of note, patient denies any history of CHF and is not on any CHF meds and does not appear volume overloaded, and denies any history of AFIB and I do not see any on my review of EKG's, tele strips. Also not noted on OP PCP notes. He denies having a
press set up. Can follow telemetry as above.
Data Reviewed
-
EKG: Tracing Personally Visualized and interpreted (SR with PAC's, bifasicular block, similar to previous)
Radiology: Report Reviewed by me (CXR 10/05/25: No acute cardiopulmonary process. Chronic obstructive pulmonary disease.)
Medical Tests (Nuc Med, Echo etc): Report Reviewed by me (Echo 12/25/24: Left ventricular ejection fraction is 65-70% by visual assessment. Normal regional wall motion. Enlarged right ventricular size. Low normal right ventricular systolic
function. Aortic sclerosis without stenosis. Trace tricuspid regurgitation. PAP 20-25 mmhg)
Labs: Labs Reviewed by me
[2025-10-07 11:23] VITALS: BMI 19.6
[2025-10-07 11:38] LABS: Glucose - Point of Care 246 mg/dl (70-99)
--- NOTE | 2025-10-07 13:00 | PN.CDI ---
CDI
- -
CDI:
Physician Documentation Request
Admit Date: 10/06/25 08:59
Dear Doctor,
Please review the following and provide your response in the progress notes.
Clinical Indicators:
The diagnosis of bifascicular block was included in the signed 10/07 EKG
- 10/07 EKG 'Bifascicular block'
- Right bundle branch block
- Left anterior fascicular block
- ER Physician admit with profound weakness, lightheadedness, and dizziness
- H&P home med diltiazem extended release daily
Please indicate in your progress notes if you are in agreement that the above diagnosis is valid for this patient:
____ - Bifascicular block is a valid diagnosis (Please include it in your progress notes)
____ - Bifascicular block is not a valid diagnosis for this patient
____ - Bifascicular block is not yet confirmed but remains a suspected condition
____ - Other (please specify)
Use of terms such as suspected, likely, concern for, or probable are acceptable for a diagnosis that is being evaluated, monitored or treated as if it exists and can be coded in the inpatient setting, when documented at the time of discharge.
Thank you,
Yady Bateman RN
CDI Specialist
Please use your independent medical judgment in providing your response.
--- NOTE | 2025-10-07 13:11 | PN.CDI ---
CDI
- -
CDI:
Physician Documentation Request
Admit Date: 10/06/25 08:59
Dear Doctor,
Please review the following and provide your response in the progress notes.
Clinical Indicators:
Documentation in the record on 10/07 Progress not includes the diagnosis of acute hypoxic respiratory failure. The patient's respiratory clinical indicators were the following:
- 10/06 ER Physician 'Pulm: Normal respiratory effort, no wheezes, rales, or rhonchi'
- 'appears to have increased respiratory rate. He is on 2 L nasal cannula but we had to increase this to 3 for more support'
- Documented 2L O2, pulse ox >90%
- 10/06 H&P 'Wheezes, Non Labored Respirations and Other (On chronic O2 2 L)'
Please verify this diagnoses is still accurate and reflective of the patient�s condition to ensure quality of the medical record.
Please clarify in the Progress Notes:
Acute hypoxic respiratory failure is/was present and is a clinical diagnosis based on (please include this additional support in the medical record)
After study acute hypoxic respiratory failure has been ruled out
Other (please specify)
Recognized standard criteria for respiratory failure includes:
(Source: Arnie Farley. 2019September 09. Documentation tips: Acute Respiratory Failure, The Hospitalist)
ABGs (1 or more)
�PO2 <60 or RA SpO2 <91%
�PcO2 >45 and pH <7.35
�pO2 decrease or pcO2 increase by 10 mmHg from baseline if known
- P/F ratio (pO2/FiO2) less than 300 Symptoms:
�Tachypnea, SOB, dyspnea
�Pallor or cyanosis
�Anxiety or restlessness
�Use of accessory muscles
�Retractions (grunting in newborns)
�Unable to speak in complete sentences
Use of terms such as suspected, likely, concern for, or probable (associated with a specific diagnosis that is being evaluated, monitored, or treated as if it exists) are acceptable and can be coded in the inpatient setting, when documented at the
time of discharge.
Thank you,
Yady Bateman RN
CDI Specialist
Please use your independent medical judgment in providing your response.
[2025-10-07] MEDS: NOVOLOG FLEXPEN-LOW RESISTANCE 2 UNITS SC (13:15)
--- NOTE | 2025-10-07 14:04 | W.PN.ID1 ---
Date of Service
Date of Service: October 07, 2025
Today's Communication
- Ciprofloxacin 500 mg PO BID plan 7 day course 10/06-10/12
- hold magnesium while on ciprofloxacin - patient is not sure why he was on it
- continue to follow EKGs; appreciate cardiology input
Assessment / Plan
UTI
Prostate cancer with prior radiation
Borderline prolonged QTcB
COPD on chronic steroids
- 10/06 urine culture in progress
- 09/30 urine culture Pseudomonas - has not previously completed treatment
- appreciate cardiology input
- Ciprofloxacin 500 mg PO BID plan 7 day course 10/06-10/12
- hold magnesium while on ciprofloxacin - patient is not sure why he was on it
- continue to follow EKGs
COPDe
- management per IM service
- on prednisone 30 mg PO qday with a tapering dose
- when last seen by PCP Dr Luther Allen 07/28/25 he was on chronic prednisone 10 mg PO qday, note available in ecw
Chief Complaint
-: UTI
Subjective / Review of Systems
afebrile
bp stable
manual qtc corrects to 495
no palpitations
Vital Signs / Physical Exam
Vital Signs
Vital Signs
Temp Pulse Resp BP Pulse Ox
97.6 F 81 20 129/67 97
10/07/25 07:51 10/07/25 07:52 10/07/25 07:52 10/07/25 07:51 10/07/25 08:00
Physical Exam
Constitutional: No Acute Distress
Cardiovascular: Regular Rate and S1/S2; Negative Murmur or Rub
Pulmonary: Clear and Symmetric; Negative Wheezes or Rales
Gastrointestinal: Soft, Non Tender, Non Distended and Normal Bowel Sounds
Genito-Urinary: Negative Suprapubic Tenderness or CVA Tenderness
Skin: Warm and Dry; Negative Rash or Jaundice
Objective Data
Lab Data
Lab Results
10/07/25 06:55
10/07/25 06:55
Estimated Creat Clear 76 ml/min 10/07/25 06:55
Total Bilirubin 0.5 mg/dl (0.2-1.3) 10/07/25 06:55
AST 14 U/L (17-59) L 10/07/25 06:55
ALT 11 U/L (0-50) 10/07/25 06:55
Alkaline Phosphatase 82 U/L (38-126) 10/07/25 06:55
Most recent labs reviewed.
Micro Results:
10/06/25 03:51 Urine Culture - Preliminary
Urine
Care Review
Plan reviewed with: Physician (Dr Patricio - QTc correction)
[2025-10-07 15:22] VITALS: BP 125/69
[2025-10-07 16:30] LABS: Glucose - Point of Care 269 mg/dl (70-99)
[2025-10-07] MEDS: LOVENOX 40 MG SC (18:35)
[2025-10-07] MEDS: NOVOLOG FLEXPEN-LOW RESISTANCE 3 UNITS SC (18:36)
[2025-10-07 20:19] VITALS: BP 104/54
[2025-10-07 22:59] LABS: Glucose - Point of Care 250 mg/dl (70-99)
[2025-10-07 23:27] VITALS: BP 120/66
[2025-10-08 03:42] VITALS: BP 141/64
[2025-10-08 05:36] VITALS: BMI 19.4
[2025-10-08] MEDS: CIPRO 500 MG PO (05:36)
--- NOTE | 2025-10-08 06:56 | W.PN.CD ---
Today's Communication / Plan
-
EKG's q2 hours after ciprofloxacin dose.
Continue ciprofloxacin per ID.
If QTc lengthens, we may need to convert to IV non-fluoroquinolones.
He will need definitive management with urology.
Impression / Plan
-
Impression/Plan: 84 y/o male with HTN, COPD and RBBB admitted with recurrent UTI requiring ciprofloxacin.
#Complicated UTI with nephrolithiasis
-Recurrent, recent history of pyelonephritis.
-Symptomatically improved on antibiotics.
-Right ureteral stent placed in late August.
-UCx shows P. aeruginosa, bashir sensistive.
-Continue ciprofloxacin 500 mg PO Q12h.
-He will need to follow up with urology for definitive nephrolithiasis management, stent extraction.
#RBBB/Prolonged QTc:
-Manual QTC is 495 ms this AM and he has bifascicular block. Manual 473 ms yesterday.
-Follow on telemetry.
-Discussed with ID. There are no good beta lactam options and ciprofloxacin is the least offensive fluoroquinolone with good urine penetration.
-At this point, we will repeat EKG 2h after every ciprofloxacin dose. If his QTc remains stable after 4-5 doses, then we can assume the QTc will not meaningfully lengthen.
#COPD
-Chronic, severe, stable.
-SaO2 = 97% on 2LNC (home level).
-Inhaled bronchodilators.
#HTN
-Chronic, stable.
-Continue diltiazem.
#Hx of PAF
-Listed on chart but no EKGs confirm.
-This may be chart matteo.
-Maintain diltiazem but there is no role for anticoagulation consideration at this time.
Subjective/Interval History:
No acute events.
Tolerating ciprofloxacin.
EKG shows stable QTc this morning.
Physical Exam
Vital Signs/Labs
Vital Signs
Temp Pulse Resp BP Pulse Ox
36.5 C 92 20 141/64 97
10/08/25 03:42 10/08/25 03:42 10/08/25 03:42 10/08/25 03:42 10/08/25 03:42
10/06/25 10/07/25 10/08/25
11:59 11:59 11:59
Actual Weight 62.6 kg 60.073 kg 59.693 kg
10/07/25 06:55
10/07/25 06:55
10/05/25
19:44
Zhn-Q-Cljxviocbzj Pept 1830
LAB Results
10/05/25
19:44
Troponin I 0.028
Physical Exam
Constitutional: No acute distress and Comfortable
EENT: Anicteric and Moist mucous membranes
Cardiovascular: Rhythm & rate is regular, Pedal edema is absent, JVD pressure is normal, S1S2 is normal and Murmur/rub/gallop absent
Respiratory: Respiratory effort normal and Other (Decreased throughout.)
GI: Soft, Distention absent, Flat, Non tender and Normal bowel sounds
Neuro/Psych: AO x 3
Data Reviewed
-
Date of Service: October 08, 2025
Medical Decision Making: Reviewed Test Results, Independent Historian Assessment and Test Interpretation
EKG: Tracing Personally Visualized and interpreted and Report Reviewed by me
Echo: Report Reviewed by me
X-Ray/CT/US/MRI/NUC/PET: Image Personally Visualized and interpreted and Report Reviewed by me
Medical Tests (PFT, Pathology etc): Report Reviewed by me
Labs: Labs Reviewed by me
Old Records: Reviewed
[2025-10-08 07:14] VITALS: BP 118/59
[2025-10-08 07:54] LABS: Hematocrit 38.8 % (39.0-52.0); Hemoglobin 12.0 g/dL (13.0-18.0); Mean Corp Hgb Conc. 30.9 g/dL (33.0-37.0); Mean Corpuscular Volume 90.7 fL (80.0-94.0); Platelet Count 159 10^3/uL (130-400); Red Cell Dist. Width 13.3 % (11.5-14.5)
[2025-10-08 08:00] LABS: Glucose - Point of Care 160 mg/dl (70-99)
[2025-10-08 08:05] LABS: Blood Urea Nitrogen 19 mg/dl (9-20); Calcium 7.9 mg/dl (8.4-10.2); Carbon Dioxide 32 mmol/L (22-30); Chloride 98 mmol/L (98-107); Estimated Creatinine Clearance 76 ml/min; Glucose 146 mg/dl (70-99); Potassium 4.0 mmol/L (3.5-5.1); Sodium 134 mmol/L (135-145); eGFR > 60.00
[2025-10-08] MEDS: PULMICORT 0.5 MG INH (08:22)
--- NOTE | 2025-10-08 08:30 | W.PN.HOSP.TC ---
Addendum entered and electronically signed by Lyndsey Bishop MD 10/08/25 14:52:
EKG with bifascicular block
Acute hypoxic respiratory failure concern for COPD exacerbation ; present on admission; Patient left AMA on 10/05 and this was present during that admission
Addendum entered and electronically signed by Lyndsey Bishop MD 10/08/25 14:50:
I saw and evaluated the patient independently. I reviewed and discussed the resident�s note and agree with findings and plan as documented by Dr. Aguilar.
GENERAL: well developed, well nourished, male in no apparent distress
HEENT: NC/AT--O2 NC
HEART: regular rate and rhythm, +S1, +S2
LUNGS : clear to auscultation bilaterally
ABDOM: soft, nontender, nondistended, + bowel sounds
EXT: no cyanosis, clubbing--trace edema bilaterally
NEUROLOGIC: grossly intact
Pseudomonas UTI -- from last admission--no symptoms until he got home and 'couldn't pee'--returned with symptoms and now started on cipro--apprec ID-- EKG for QT acceptable--apprec cards--d/c
Acute hypoxic respiratory failure last admission concern was for COPD exacerbation --ordered prednisone taper but pt refused due to his sugars that will increase--so placed back on outpt prednisone that we had on his home med list of 20mg--now he
was really on 10mg as per ID documentation from his PCP
Falls- refused SNF and left AMA--apprec PT/OT
Paroxysmal atrial fibrillation- Remains on home diltiazem, not anticoagulated- bled 2-3x, anticoagulation could be considered but will defer to his primary cardiology team; Patient not interested at this time- Continue on telemetry
PMH of recent septic shock (2 admissions ago) in the setting of stone related sepsis with complicated UTI & pyelonephritis - shock state resolved as of 09/17- GNR bacteremia due to E. coli UTI- E. coli septic shock - sepsis complicated by HALI,
obstructive uropathy - etiology of sepsis likely acute right sided pyelonephritis with associated nephrolithiasis- denies flank pain, dysuria to me at this time
Type 2 DM- sliding scale insulin
HLD- atorvastatin
HFpEF without exacerbation- monitor I/Os, daily weights
GERD-PPI continued
right lower pole renal mass on recent CT- follow-up outpatient
History of prostate cancer with history of prior radiation/urinary retention--Flomax continued-bladder scan
Wounds present on last admission and again on this one--MASD- Sacrum pressure injury stage 2, MASD of the groin- bilateral heels boggy and under bandages
Code status-- Full
DVT proph-- enoxaparin
pt now agreeing to SNF--D/C to [facility]
Original Note:
Today's Communication/Plan
-
continue with cipro
dc to snf
out patient fu with pcp for renal mass and urology for ureteral stent
Assessment / Plan
Assessment / Plan
84 yo M PMH COPD on 2L O2, paroxysmal atrial fibrillation not on anticoagulation, HFpEF, essential HTN, HLD, T2DM, GERD, hx of shingles chronic urinary retention with recent admission for septic shock from E coli pyelonephritis/UTI, prostate cancer
s/p radiation returned with c/o difficulty urination after leaving [facility] on 10/05/2025 when he was admitted for COPD exacerbation
PLAN:
#Acute UTI
#History of prostate cancer with history of prior radiation
#urinary retention
-Recent urine culture with Pseudomonas; repeat culture pending
-Flomax continued
-Status post 1 dose of meropenem in the emergency; currently on cipro from ID with Qtc monitoring; per repeated EKGs it seems that Qtc has stablised and we can continue to complete the abx course
-Symptomatically improved on antibiotics; s/p Right ureteral stent placed in august,; will need urology fu
#Acute hypoxic respiratory failure concern for COPD exacerbation ; present on admission; Patient left [facility] on 10/05 and this was present during that admission
- Continue with prn DuoNebs and scheduled budesonide nebulizer
- Continue with prednisone taper 30 mg for 3 days and decreasing by 10 mg every 3 days and back to his 10mg daily per ID documentation
#Recent Fall
- CT Head noncant and CT Cspine from 09/30/2025 unremarkable for acute process
- fall precautions
#Paroxysmal atrial fibrillation
- Remains on home diltiazem, not anticoagulated
- HAS BLED 2-3, anticoagulation could be considered but will defer to his primary cardiology team
#PMH recent septic shock in the setting of stone related sepsis with complicated UTI & pyelonephritis - shock state resolved as of 09/17
- GNR bacteremia due to E. coli UTI
- E. coli septic shock - sepsis complicated by HALI, obstructive uropathy - etiology of sepsis likely acute right sided pyelonephritis with associated nephrolithiasis
- denies flank pain at this time
#T2DM
- sliding scale insulin
# Hyperlipidemia
- Continue with home atorvastatin
#HFpEF without exacerbation
- monitor I/Os, daily weights
#GERD
- Continue with omeprazole
#Hemorrhoids
- Home hydrocortisone rectal
#Right lower pole renal mass on recent CT
- follow-up outpatient
- denies flank pain at this time
#Wounds present on admission
#MASD
- Sacrum pressure injury stage 2, MASD of the groin
- bilateral heels boggy and under bandages
# Bifascicular block on multiple EKGs
Code status: DNR
DVTppx: enoxaparin
Diet: Regular per patient's request
Anticipated Discharge: Today
Subjective/Interval History
-
Date of Service: October 08, 2025
AFVSS. offers no new complaints. states he is felling great. dysuria resolved
Objective Data
-
Labs:
Laboratory Results
10/08/25
07:28
WBC 8.4
Hgb 12.0 L
Hct 38.8 L
Plt Count 159
Sodium 134 L
Potassium 4.0
Chloride 98
Carbon Dioxide 32 H
BUN 19
Creatinine 0.5 L
Glucose 146 H
Calcium 7.9 L
Vital Signs:
Vital Signs
Temp Pulse Resp BP Pulse Ox
98.5 F 78 18 118/59 97
10/08/25 07:14 10/08/25 07:14 10/08/25 07:14 10/08/25 07:14 10/08/25 07:14
I&O
10/07/25 10/08/25 10/09/25
06:59 06:59 06:59
Intake Total 240 / 240 540 / 540
Output Total 400 / 400
Balance -160 / -160 540 / 540
Review of Systems
-
History Source: Patient
All other systems: Reviewed and negative
Physical Exam
-
General: Well Developed and No Apparent Distress
HEENT: Normocephalic and Atraumatic
Respiratory: Clear to Auscultation and Non Labored Respirations; Negative Wheezes, Rales, Rhonchi or Accessory Resp Muscle Use
Cardiac: Regular Rhythm and S1/S2; Negative Murmur, Rub or Gallop
GI: Soft, Nontender, Nondistended and Normal Bowel Sounds
Musculoskeletal: No Cyanosis, No Edema and Clubbing
Skin: Warm and Dry; Negative Rash or Jaundice
Neuro: AO x 3, Nonfocal/Grossly Intact and Central Nerve's Intact; Negative Tremors
Psych: Calm
Data Reviewed
-
Labs: Labs Reviewed by me, Discussed with Physician and Discussed with Patient
--- NOTE | 2025-10-08 09:48 | W.PN.ID1 ---
Date of Service
Date of Service: October 08, 2025
Today's Communication
appreciate cardiology input - QTcB today 395
- Ciprofloxacin 500 mg PO BID plan 7 day course 10/06-10/12
- hold magnesium while on ciprofloxacin - patient is not sure why he was on it
- continue to follow EKGs as per cardiology recs
Assessment / Plan
UTI
Prostate cancer with prior radiation
Borderline prolonged QTcB
COPD on chronic steroids
- 10/06 urine culture in progress
- 09/30 urine culture Pseudomonas - has not previously completed treatment
- appreciate cardiology input - QTcB today 395
- Ciprofloxacin 500 mg PO BID plan 7 day course 10/06-10/12
- hold magnesium while on ciprofloxacin - patient is not sure why he was on it
- continue to follow EKGs as per cardiology recs
COPDe
- management per IM service
- on prednisone tapering per IM service
- when last seen by PCP Dr Luther Allen 07/28/25 he was on chronic prednisone 10 mg PO qday, note available in ecw
Chief Complaint
-: UTI
Subjective / Review of Systems
afebrile
bp stable
no events overnight
minimal terminal dysuria
Vital Signs / Physical Exam
Vital Signs
Vital Signs
Temp Pulse Resp BP Pulse Ox
98.5 F 78 18 118/59 97
10/08/25 07:14 10/08/25 07:14 10/08/25 07:14 10/08/25 07:14 10/08/25 07:14
Physical Exam
Constitutional: No Acute Distress and Chronically Ill
Cardiovascular: Regular Rate and S1/S2; Negative Murmur or Rub
Pulmonary: Clear and Symmetric; Negative Wheezes or Rales
Gastrointestinal: Soft, Non Tender, Non Distended and Normal Bowel Sounds
Genito-Urinary: Negative Suprapubic Tenderness
Skin: Warm and Dry; Negative Rash or Jaundice
Objective Data
Lab Data
Lab Results
10/08/25 07:28
10/08/25 07:28
Estimated Creat Clear 76 ml/min 10/08/25 07:28
Total Bilirubin 0.5 mg/dl (0.2-1.3) 10/07/25 06:55
AST 14 U/L (17-59) L 10/07/25 06:55
ALT 11 U/L (0-50) 10/07/25 06:55
Alkaline Phosphatase 82 U/L (38-126) 10/07/25 06:55
Most recent labs reviewed.
Micro Results:
10/06/25 03:51 Urine Culture - Preliminary
Urine
--- NOTE | 2025-10-08 09:57 | CM ---
Patient accepted for transfer to [facility] today. Patient report to be called to [phone]/fax [phone]. Patient qualifies for wheelchair van vs transport with family to SNF. Patient family confirmed plan to go to SNF; [facility]. CM will continue to
follow for discharge planning needs.
Plan; SNF transfer today.
[2025-10-08] MEDS: NOVOLOG FLEXPEN-LOW RESISTANCE 1 UNITS SC (10:26)
[2025-10-08] MEDS: SENOKOT-S 1 TABLET PO (10:27)
[2025-10-08] MEDS: DELTASONE 30 MG PO (10:27)
[2025-10-08] MEDS: FLOMAX 0.4 MG PO (10:27)
[2025-10-08] MEDS: LOW STRENGTH ASPIRIN 81 MG PO (10:27)
[2025-10-08] MEDS: LIPITOR 40 MG PO (10:28)
[2025-10-08] MEDS: TYLENOL 650 MG PO (10:28)
[2025-10-08] MEDS: CARDIZEM CD 120 MG PO (10:28)
[2025-10-08] MEDS: VISBIOME 1 CAP PO (10:28)
[2025-10-08 11:00] VITALS: BP 117/64
--- NOTE | 2025-10-08 12:35 | W.DCSUMMARY ---
Addendum entered and electronically signed by Lyndsey Bishop MD 10/08/25 14:54:
Read, reviewed, and agree. See same day progress note for additional details. Time spent coordinating care, DC planning, review of DC plan of care with resident, transition of care, review of records in EMR, med rec, consults, notes, d/w
consultants, nursing, family, and CM = 33 minutes
Original Note:
Discharge Summary
Discharge Data
Date of Admission: 10/06/25
Date of Discharge: 10/08/25
-
Pending Results: No
Hospital Course
Discharging Physician : Rao Aguilar MD ; Lyndsey Bishop MD
Disposition : SNF
Primary care physician : Greg Fam
Principal Discharge diagnosis : Pseudomonas UTI
Acute hypoxic respiratory failure last admission concern was for COPD exacerbation
Chronic Discharge diagnosis : History of septic shock, type 2 diabetes mellitus, hyperlipidemia, HFpEF, GERD, right lower pole renal mass, history of prostate cancer, sacral wounds, falls, Paroxysmal atrial fibrillation
Hospital Course : 84-year-old male with known past medical history of COPD on chronic 2 L O2 via nasal cannula, chronic HFpEF, paroxysmal A-fib not on any anticoagulation, type 2 diabetes, history of chronic urinary retention, hyperlipidemia,
prostate cancer s/p radiation, sacral pressure injury stage I, GERD, history of shingles, presented with complaints of painful and difficult urination and subjective fever.
He was admitted to the hospital for COPD last week however he left AMA on 10/05/25. During his previous visit a urinalysis was performed which did show Pseudomonas however the urinalysis had more than 30 squamous cells and patient was not
complaining of any urinary symptoms on repeated inquiry and he was not treated.
Given that he was symptomatic on arrrival this time he was started with IV antibiotic. Initially he received meropenem in the emergency however after consulting the infectious disease he was placed on ciprofloxacin his QTc was monitored with
periodic EKGs after the first 4 doses. Initially the QTc was slightly elevated however per discussion with the cardiology team if the QTc remained stable after 4�5 doses we can continue the antibiotic. After the 4 doses QTc seems to be stabilized
and he was recommended to continue the ciprofloxacin to complete a total course of 7 days.
Given that there is a mass on the right kidney on the recent CAT scan he would need a close follow-up with the PCP. He has a right ureteral stent that was placed by urology and August 2025 and he will need a follow-up with urology for definitive
management.
Given that he had a COPD exacerbation and he was on a steroid taper before he left [facility], that was continued and on the day of discharge he was advised to take 30 mg for additional 2 days, 20 mg for next 3 days, 10 mg after that daily which is his
usual home dose. He was advised to follow-up outpatient with the PCP
PT/OT recommended skilled rehab. After discussion with the patient he agreed. sales effectiveness manager helped arranged the facility.
He was discharged in a medical stable condition. On the day of discharge his hemoglobin was 12.0, sodium of 134, creatinine of 0.5.
Important imaging findings : CR Chest - 2 Views:
No acute cardiopulmonary process.
Procedure findings : EKG on day of discharge
NORMAL SINUS RHYTHM
LEFT AXIS DEVIATION
RIGHT BUNDLE BRANCH BLOCK
LEFT ANTERIOR FASCICULAR BLOCK
q
Discharge Plan
-
Patient Disposition: Correction/SNF
Discharge Diagnosis/Procedures: Pseudomonas UTI
Acute hypoxic respiratory failure last admission concern was for COPD exacerbation
Condition: Fair
Diet: 2 Gram Sodium and Diabetic, Carb Controlled
Activity: As tolerated
Driving Restrictions: As prior to admission
Bathing Restrictions: None
Other Services: PT and OT
Activity Restrictions/Additional Instructions:
Wound Care Instructions
Sacral/coccyx-clean with saline, silicone border foam, change every 2 days and prn loosened dressing.
Penis/scrotal MASD-zinc barrier ointment bid and as needed for incontinence.
evaluate for an air mattress
turning schedule
elevate heels off bed with pillows
Pressure redistributing chair cushion (i.e. air chair cushion)
Follow up at wound care center if needed, call for an appointment.
Referrals:
Greg Fam MD [Family Provider, Urology] - in less than 1 week
Additional Discharge Medication Instructions: Take ciprofloxacin 500mg twice daily by mouth to complete total 7 days course
I advise that you see your family doctor as well the urologist within 1 week
You can continue taking your home medications
Since you were started on a prednisone taper I recommend that you take 30 mg for next 2 days, 20 mg for 3 days after that and 10 mg after that daily. Please discuss this with your pcp for additional script and recommendations
Follow up with [facility] for right lower pole renal mass on recent CT
Prescriptions:
New
ciprofloxacin HCl 500 mg Tablet
500 mg PO BID@0600,1800 Qty: 0 0RF
Rx Instructions:
started on 10/06, continue till 10/12
Continued
atorvastatin 40 MG tablet
40 mg PO DAILY Qty: 30 0RF
diltiazem HCl 120 MG capsule,extended release 24hr
120 mg PO DAILY Qty: 30 0RF
albuterol sulfate 2.5 mg /3 mL (0.083 %) Solution For Nebulization
2.5 mg INHALATION R Q6HPRN PRN (Reason: wheezing)
budesonide 0.5 mg/2 mL Suspension For Nebulization
0.5 mg INHALATION R BID
tamsulosin 0.4 MG capsule
0.4 mg PO BID
omeprazole 20 MG capsule,delayed release(DR/EC)
20 mg PO DAILYPRN PRN (Reason: Gastrointestinal Issue)
Saline Nasal 0.65 % Aerosol,[place]
1 spray intranasal QIDPRN PRN (Reason: dry nares) Qty: 44 0RF
acetaminophen [Tylenol] 325 mg Tablet
650 mg PO Q6HPRN PRN (Reason: mild pain )
aspirin 81 mg tablet,chewable
81 mg PO DAILY
ipratropium-albuterol 0.5 mg-3 mg(2.5 mg base)/3 mL Solution For Nebulization
3 ml inhalation R Q4HPRN PRN (Reason: SOB/wheezing) Qty: 180 2RF
loperamide 2 mg Capsule
2 mg PO DAILYPRN PRN (Reason: Diarrhea) 7 Days Qty: 7 0RF
gabapentin 300 mg Capsule
300 mg PO TIDPRN PRN (Reason: nerve pain)
Januvia 100 mg Tablet
100 mg PO DAILY
Visbiome 112.5 billion cell Capsule
1 cap PO DAILY
magnesium oxide 400 mg magnesium capsule
400 mg PO DAILY
prednisone 10 mg Tablet
10 mg PO DIRECTED Qty: 0 0RF
Rx Instructions:
30mg daily for 2 more days then 20mg daily for 3 days then 10mg daily for 3 days
hydrocortisone acetate 25 mg suppository
25 mg [place] HS Qty: 0 0RF
Discharge Orders:
Discharge Patient (As Directed); Ordered 10/08/25
Ordered By: Rao Aguilar
Discharge Date and Time
Print Language: KINYARWANDA
== END 2025-10-08 13:12 | DRG 690 ==
LOC: 1 ACUTE 08:59
PROVIDERS: Emergency Medicine; Physician Assistant; ADMITTING PHYSICIAN Internal Medicine; CONSULT PHYSICIAN Student in an Organized Health Care Education/Training Program; EMERGENCY PHYSICIAN Student in an Organized Health Care Education/Training Program; FAMILY PHYSICIAN Urology; OTHER PHYSICIAN Internal Medicine Cardiovascular Disease
DX: N39.0 Urinary tract infection, site not specified (principal); I50.32 Chronic diastolic (congestive) heart failure; I45.2 Bifascicular block; J96.11 Chronic respiratory failure with hypoxia; E11.9 Type 2 diabetes mellitus without complications; I48.0 Paroxysmal atrial fibrillation; E78.00 Pure hypercholesterolemia, unspecified; I11.0 Hypertensive heart disease with heart failure; F17.210 Nicotine dependence, cigarettes, uncomplicated; R33.9 Retention of urine, unspecified; L89.152 Pressure ulcer of sacral region, stage 2; G89.4 Chronic pain syndrome; J43.9 Emphysema, unspecified; N40.0 Benign prostatic hyperplasia without lower urinary tract symptoms; I27.20 Pulmonary hypertension, unspecified; B96.5 Pseudomonas (aeruginosa) (mallei) (pseudomallei) as the cause of diseases classified elsewhere; R29.6 Repeated falls; K21.9 Gastro-esophageal reflux disease without esophagitis; N20.0 Calculus of kidney; K64.9 Unspecified hemorrhoids; N28.89 Other specified disorders of kidney and ureter; Z66 Do not resuscitate; Z60.2 Problems related to living alone; Z87.442 Personal history of urinary calculi; Z90.49 Acquired absence of other specified parts of digestive tract; Z79.82 Long term (current) use of aspirin; Z86.16 Personal history of COVID-19; Z87.01 Personal history of pneumonia (recurrent); Z79.51 Long term (current) use of inhaled steroids; Z79.52 Long term (current) use of systemic steroids; Z85.46 Personal history of malignant neoplasm of prostate; Z92.3 Personal history of irradiation; Z99.81 Dependence on supplemental oxygen; Z91.199 Patient's noncompliance with other medical treatment and regimen due to unspecified reason; Z79.899 Other long term (current) drug therapy; Z79.84 Long term (current) use of oral hypoglycemic drugs
CPT/HCPCS: 71046; 80048; 80053; 81003; 81015; 82962; 83880; 84484; 85025; 85027; 87086; 93005; 94640; 97163; 97166; J2185

== ENCOUNTER 2025-10-16 03:24 | Inpatient (IN) | payer OTHER, SELFPAY ==
[2025-10-16] VITALS (18 sets, daily range): BP systolic 97–137; BP diastolic 48–87; PULSE 2–110; BMI 19.9; BMI 19.5
--- NOTE | 2025-10-16 00:10 | ED.GENMED ---
History of Present Illness
General
Chief Complaint: Throat Problem
Source: patient and ambulance crew
Exam Limitations: none
Time Seen by Provider: 10/16/25 00:09
Nursing documentation reviewed up to this point in time: agreed with
History of Present Illness
History of Present Illness:
Note:
CHIEF COMPLAINT(S)
Throat discomfort and difficulty swallowing.
HISTORY OF PRESENT ILLNESS
The patient is an 84-year-old male who presented with complaints of throat discomfort starting around 3:00 PM today. He reported a sensation in his throat that he tried to alleviate by drinking, but subsequently vomited everything back up. Despite
not having eaten today, he described the feeling devika to having overeaten, leading to chest tightness. The patient initially had an oxygen saturation of 90% on two liters of oxygen, which was his baseline. His oxygen saturation improved to 92-93% on
four liters, and further increased to 99% when placed on 15 liters via mask. The patient has a history of being in the facility earlier today for similar issues.
ADDITIONAL HISTORY OBTAINED FROM SOURCE OTHER THAN THE PATIENT
According to EMS, the patient initially presented with an oxygen saturation of 90% on two liters of oxygen and improved to 99% on 15 liters via mask.
PAST MEDICAL AND SURGICAL HISTORY
The patient has a history of atrial fibrillation.
SOCIAL DETERMINANTS AFFECTING HEALTH
The patient mentioned difficulty eating today, which led to fasting due to discomfort.
PHYSICAL EXAM
General: moderate respiratory distress
Skin: Warm, dry.
Head: Normocephalic, atraumatic.
Neck: Supple, trachea midline.
Eye Ears, nose, mouth and throat: Oral mucosa moist.
Cardiovascular: Normal peripheral perfusion, No edema.
Respiratory: Respirations are labored. Rales and wheezing. pursed lip breathing
Gastrointestinal: Abdomen nondistended.
Back: Normal range of motion, Normal alignment.
Musculoskeletal: Normal ROM, normal strength.
Neurological: Alert and oriented to person, place, time, and situation, No focal neurological deficit observed.
Psychiatric: Cooperative, appropriate mood & affect.
PLAN
Review the patients comprehensive medical records to evaluate the history of similar episodes and current treatments.
Conduct a thorough examination to determine the presence of any esophageal obstruction or other underlying cause for the throat discomfort and difficulty swallowing.
Consider a consult with gastroenterology if symptoms persist or worsen.
Ensure continued monitoring of oxygen saturation levels and provide necessary oxygen therapy.
DIFFERENTIAL DIAGNOSIS
The Differential Diagnosis includes, in no particular order and is not limited to:
1. Esophageal spasm
2. Globus sensation
3. Gastroesophageal reflux disease (GERD)
4. Dysphagia secondary to structural abnormalities
5. Esophageal stricture
6. Anxiety-related throat tightness
7. Foreign body sensation
8. Esophageal obstruction
9. Acute coronary syndrome presenting with atypical symptoms
10. Laryngeal pathology.
CARE-UPDATE
10/16/25 - 02:29
Patients hypoxia has worsened, necessitating the transition from an under breather to BIPAP. The hospitalist will admit the patient for management. Initiate treatment for COPD exacerbation and CHF exacerbation.
EKG
My independent EKG interpretation is:
- Time of EK:37 a.m.
- Rhythm: Tachycardia with premature atrial complexes
- Heart Rate: 119 beats per minute
- Col[place]: Left axis deviation
- Abnormalities: Right bundle branch block
Disposition:
SUMMARY OF ENCOUNTER
The patient, an 84-year-old male, presented to the emergency department with symptoms of throat discomfort, difficulty swallowing, and chest tightness. Despite having not eaten, he experienced sensations similar to overeating, leading to vomiting.
Initial oxygen saturation was at 90% which improved to 99% on 15 liters of oxygen via mask. The patients history includes atrial fibrillation. Given this history and presentation, an independent review of recent EKG showed tachycardia with premature
atrial complexes, a right bundle branch block and left axis deviation. Due to hypoxia and symptoms indicating COPD and CHF exacerbation, the patient was managed with appropriate oxygen therapy and admitted for further evaluation and treatment.
DISPOSITION
Admit
ASSESSMENT
The patient is experiencing hypoxia secondary to chronic obstructive pulmonary disease (COPD) exacerbation and congestive heart failure (CHF) exacerbation. These conditions are contributing to his dyspnea and the compensatory rise in heart rate
observed on EKG.
EMERGENCY TREATMENTS ADMINISTERED
Oxygen therapy was escalated from 2 liters nasal cannula to 15 liters via mask.
MANAGEMENT OF THE PATIENTS CARE WAS DISCUSSED WITH
Hospitalist
PLAN
The patient will be admitted for further management of COPD and CHF exacerbations, including optimization of diuretics, bronchodilators, and continued oxygen therapy. Close monitoring of oxygen saturation and cardiac status will be maintained.
MEDICAL DECISION MAKING
- Complexity of Data Reviewed: Chronic conditions affecting care include atrial fibrillation. Differential diagnosis for the presenting symptoms includes esophageal spasm, globus sensation, gastroesophageal reflux disease, dysphagia secondary to
structural abnormalities, esophageal stricture, anxiety-related throat tightness, foreign body sensation, esophageal obstruction, acute coronary syndrome presenting atypically, and laryngeal pathology.
- Data:
Category 1: Non-emergency department records reviewed from EMS. My independent interpretation of EKG shows tachycardia with premature atrial complexes, right bundle branch block, and left axis deviation.
Category 2: Clinical information was obtained from EMS as an independent historian.
Category 3: Discussion of management with the hospitalist regarding admission and further treatment strategy for CHF and COPD exacerbation.
-Risk: Admission due to escalation of care, complexities related to COPD and CHF exacerbations, and hypoxia management requirements.
DIAGNOSIS
- Congestive Heart Failure Exacerbation (ICD-10: I50.9)
- Chronic Obstructive Pulmonary Disease Exacerbation (ICD-10: J44.1)
- Hypoxia (ICD-10: R09.02)
Past History
Past History
ED Past Medical History: Cancer, COPD, HTN, Hypercholesterolemia, NIDDM and Other (COVID pneumonitis January 2022)
ED Past Surgical History: Cholecystectomy and Urological
Social History
Tobacco: Former smoker
Alcohol: None
Personal:
Living: alone
Employment: Retired
Family History
Family History: Other (Noncontributory)
Phy Exam
Physical Exam
Physical Exam:
.
Course
Orders/Labs/Results
Orders:
Orders
10/16/25 00:09
Cardiac Monitoring- Treatment ONCE
IV Insert/Care/Rem.- Treatment PRN
O2 Therapy [RESP] Stat
Titrate/Wean O2 to maintain O2 sat greater than (%): 93
Pulse Ox/cont/shift [RESP] Stat
Quantity: 1
10/16/25 00:10
Electrocardiogram (*1) Stat
Reason for Study: Other
Other Reason for Exam: pneumonia
EKG- Treatment ONCE
10/16/25 00:24
Complete Blood Count/With Diff Urgent
Comprehensive Metabolic Panel Urgent
Lactic Acid Q4H
Comment: CANCEL 2nd LACTIC ACID IF 1st LACTIC ACID IS LESS THAN 2
NT-proBNP Urgent
Troponin I Urgent
10/16/25 00:49
Blood Culture Q30M
KRISTEN Source: Blood/Venous
Specimen Description:
10/16/25 00:54
CR Chest Portable - 1 View Urgent
Comment:
Reason For Exam: short of breath, chest tight
Reason Study Needs to be Portable: Patient Unstable
10/16/25 00:55
Blood Culture Q30M
KRISTEN Source: Blood/Venous
Specimen Description:
10/16/25 01:48
Furosemide [Lasix] 40 mg IV NOW STA
10/16/25 01:53
Dexamethasone Sod Phosphate [Decadron] 10 mg IV NOW STA
Ipratropium/Albuterol Sulfate [Duoneb] 3 ml INH R NOW STA
Bipap [RESP] Urgent
Patient to use own unit?: No
Inspiratory Pressure (cm H2O): 10
Expiratory Pressure (cm H2O): 5
Abnormal Lab Results
10/16/25
00:24
WBC 14.9 H 10^3/uL
(4.8-10.8)
MCHC 30.9 L g/dL
(33.0-37.0)
MPV 10.9 H fL
(7.4-10.4)
Abs Immat Gran (auto) 0.5 H 10^3/uL
(0-0.05)
Absolute Neuts (auto) 12.8 H 10^3/uL
(1.4-6.5)
Absolute Lymphs (auto) 0.6 L 10^3/uL
(1.2-3.4)
Absolute Monos (auto) 1.1 H 10^3/uL
(0.1-0.6)
Immature Gran % 3.0 H %
(0-0.5)
Neutrophils % 85.7 H %
(42.2-75.2)
Lymphocytes % 3.8 L %
(20.5-51.1)
Chloride 95 L mmol/L
(98-107)
Carbon Dioxide 35 H mmol/L
(22-30)
BUN 22 H mg/dl
(9-20)
Glucose 158 H mg/dl
(70-99)
Calcium 7.9 L mg/dl
(8.4-10.2)
Troponin I 0.060 H* ng/ml
Total Protein 5.6 L g/dl
(6.3-8.2)
Albumin 3.0 L g/dl
(3.5-5.0)
10/16/25 00:24
10/16/25 00:24
Vital Signs
Initial and Last Documented VS:
Initial Vital Signs
Temp Pulse Resp BP Pulse Ox
98.4 F 122 21 111/87 92
10/16/25 00:09 10/16/25 00:09 10/16/25 00:09 10/16/25 00:09 10/16/25 00:09
Last Documented Vital Signs
Temp Pulse Resp BP Pulse Ox
98.4 F 111 23 137/73 95
10/16/25 00:09 10/16/25 02:01 10/16/25 02:00 10/16/25 02:01 10/16/25 02:12
*Pulse Oximetry
Patient hypoxic: yes
*Critical Care Note
Total Time (30-74mins, 75-104mins- exclusive of procedures): Not Applicable
ED Attending Note
-
Portions of this chart may have been created with voice recognition software.� Occasional wrong word or��sound alike� substitutions may have occurred due to the inherent limitations of voice recognition software.
Discharge Plan
Departure
Patient Disposition: Admit
Date of Disposition: 10/16/25
Time of Disposition: 01:51
Admit to: IMU
Presentation/result/management discussed w/ accepting MD/DO: Hospitalist
Patient with high blood pressure during this ER visit?: No
Condition: Fair
Discharge Problem:
Acute exacerbation of CHF (congestive heart failure), Hypoxia, Acute exacerbation of chronic obstructive pulmonary disease
Prescriptions:
No Action
diltiazem HCl 120 MG capsule,extended release 24hr
120 mg PO DAILY Qty: 30 0RF
albuterol sulfate 2.5 mg /3 mL (0.083 %) Solution For Nebulization
2.5 mg INHALATION R Q6HPRN PRN (Reason: wheezing)
budesonide 0.5 mg/2 mL Suspension For Nebulization
0.5 mg INHALATION R BID
tamsulosin 0.4 MG capsule
0.4 mg PO BID
omeprazole 20 MG capsule,delayed release(DR/EC)
20 mg PO DAILYPRN PRN (Reason: Gastrointestinal Issue)
Saline Nasal 0.65 % Aerosol,[place]
1 spray intranasal QIDPRN PRN (Reason: dry nares) Qty: 44 0RF
acetaminophen [Tylenol] 325 mg Tablet
650 mg PO Q6HPRN PRN (Reason: mild pain )
aspirin 81 mg tablet,chewable
81 mg PO DAILY
ipratropium-albuterol 0.5 mg-3 mg(2.5 mg base)/3 mL Solution For Nebulization
3 ml inhalation R Q4HPRN PRN (Reason: SOB/wheezing) Qty: 180 2RF
gabapentin 300 mg Capsule
300 mg PO TIDPRN PRN (Reason: nerve pain)
Januvia 100 mg Tablet
100 mg PO DAILY
Visbiome 112.5 billion cell Capsule
1 cap PO DAILY
magnesium oxide 400 mg magnesium capsule
400 mg PO DAILY
prednisone 10 mg Tablet
10 mg PO DIRECTED Qty: 0 0RF
Rx Instructions:
30mg daily for 2 more days then 20mg daily for 3 days then 10mg daily for 3 days
hydrocortisone acetate 25 mg suppository
25 mg [place] HS Qty: 0 0RF
magnesium hydroxide [Milk of Magnesia] 400 mg/5 mL Suspension
15 ml PO DAILY PRN (Reason: if no BM x3 days)
bisacodyl [Dulcolax (bisacodyl)] 10 mg Suppository
10 mg [place] DAILY PRN (Reason: if MOM is ineffective)
Fleet Enema 19-7 gram/118 mL Enema
118 ml [place] ONCE
Patient Comments:
if dulcolax ineffective
atorvastatin 40 MG tablet
40 mg PO HS
Referrals:
NONE,* [Family Provider, Internal Medicine]
Interventions
Interventions:
*General Assessment Last Done: 10/16/25 00:16
*Neglect/Abuse Screening Last Done: 10/16/25 00:42
*ED COVID-19 Vaccine History Last Done: 10/16/25 00:42
*ED Influenza Vaccine History Last Done: 10/16/25 00:42
[facility] Fall Risk Assessment Tool Last Done: 10/16/25 00:39
*Risk Screen - Suicide (C-SSRS) Last Done: 10/16/25 00:42
ED-EENT Assessment Last Done: 10/16/25 00:10
ED- Pulmonary Assessment Last Done: 10/16/25 02:12
Discharge Date and Time
Print Language: LATVIAN
[2025-10-16 00:35] LABS: Hematocrit 45.0 % (39.0-52.0); Hemoglobin 13.9 g/dL (13.0-18.0); Mean Corp Hgb Conc. 30.9 g/dL (33.0-37.0); Mean Corpuscular Volume 93.4 fL (80.0-94.0); Nucleated Red Blood Cells % 0 % (-); Platelet Count 159 10^3/uL (130-400); Red Cell Dist. Width 13.3 % (11.5-14.5)
[2025-10-16 00:56] LABS: ALT (SGPT) 14 U/L (0-50); AST (SGOT) 17 U/L (17-59); Albumin 3.0 g/dl (3.5-5.0); Alkaline Phosphatase 102 U/L (38-126); Blood Urea Nitrogen 22 mg/dl (9-20); Calcium 7.9 mg/dl (8.4-10.2); Carbon Dioxide 35 mmol/L (22-30); Chloride 95 mmol/L (98-107); Estimated Creatinine Clearance 67 ml/min; Glucose 158 mg/dl (70-99); Potassium 4.6 mmol/L (3.5-5.1); Sodium 135 mmol/L (135-145); Total Protein 5.6 g/dl (6.3-8.2); eGFR > 60.00
[2025-10-16 01:09] LABS: Troponin I 0.060 ng/ml
[2025-10-16] MEDS: DECADRON 10 MG IV (02:01)
[2025-10-16] MEDS: LASIX 40 MG IV (02:01)
[2025-10-16] MEDS: DUONEB 3 ML INH ×5 (02:06→19:47)
--- NOTE | 2025-10-16 03:19 | HPS.HSE ---
Family Physician
-
Family Physician: * NONE
Chief Complaint
-
Trouble swallowing
History of Present Illness
Patient is an 84y M with PMH significant for COPD, chronic hypoxemic and hypercapnic respiratory failure, DM-II and multiple recent hospitalizations for UTI / sepsis, kidney stones, COPD and syncope who presents to ED complaining of difficulty
swallowing. Patient was last admitted 10/06 - 10/08 after being found down at home. No clear etiology was discovered during that hospitalization. He was discharged to SNF on 10/08 where he states he stayed for 'two or three days'. Patient states
that after arrival at SNF he noted some difficulty swallowing. He specifically noted discomfort in the L neck area with swallowing and 'had trouble' getting food down. He would regurgitate or throw up food that he attempted to swallow. He states
that it took some effort to successfully swallow. He also noted some discomfort in the chest / epigastric area at times.
Patient indicates that he has had similar symptoms in the past and they have typically been alleviated by drinking soda / belching / time / etc.
Patient notes that his current symptoms have only seemed to progress. He has eaten nothing in the past 3 days due to this issue.
Patient denies any abdominal pain, diarrhea, bloody stools, etc. He denies any cough, increased SOB, fevers or chills.
Medical History
Past Medical History
Past Medical History: Reports Other
Additional Past Medical History:
Chronic Hypoxemic and Hypercapnic Respiratory Failure
Severe COPD
Chronic HFpEF
Paroxysmal Atrial Fibrillation
Hypertension
Diabetes Mellitus, Type II
Dysphagia
GERD
Hx Prostate CA
Past Surgical History: Reports Other
Additional Past Surgical History:
Cholecystectomy
Social History
Tobacco: Smoker (Started smoking at the age of 11. Current every day smoker. > 60 pack years total use.)
Alcohol: None
Family History
Family History: Not pertinent
Allergies / Home Medications
Allergies reflects when Allergies were last updated in [employer].
Home Medications with original date entered in [employer]
Allergy/Medication List:
Allergies
Allergy/AdvReac Type Severity Reaction Status Date / Time
No Known Allergies Allergy Verified 10/05/25 19:31
Home Medications
diltiazem HCl 120 mg capsule,extended release 24 hr 120 mg PO DAILY Arrhythmia #30 caps 06/04/23
albuterol sulfate 2.5 mg/3 mL (0.083 %) solution for nebulization 2.5 mg inhalation R Q6HPRN PRN wheezing 11/07/23
budesonide 0.5 mg/2 mL suspension for nebulization 0.5 mg inhalation R BID Lung/Breathing Issues 05/13/24
omeprazole 20 mg capsule,delayed release 20 mg PO DAILYPRN PRN Gastrointestinal Issue 05/13/24
tamsulosin 0.4 mg capsule 0.4 mg PO BID Urinary issue 05/13/24
sodium chloride 0.65 % nasal spray aerosol (Saline Nasal) 1 spray intranasal QIDPRN PRN dry nares #44 mL 07/15/25
acetaminophen 325 mg tablet (Tylenol) 650 mg PO Q6HPRN PRN mild pain 09/12/25
aspirin 81 mg chewable tablet 81 mg PO DAILY Blood Clot Prevention/Tx 09/16/25
ipratropium 0.5 mg-albuterol 3 mg (2.5 mg base)/3 mL nebulization soln 3 ml inhalation R Q4HPRN PRN SOB/wheezing #180 mL 09/23/25
gabapentin 300 mg capsule 300 mg PO TIDPRN PRN nerve pain 09/30/25
Lactobac no.2-Bifidobac no.1-S. thermo 112.5 billion cell capsule (Visbiome) 1 cap PO DAILY Supplement 10/06/25
magnesium oxide 400 mg PO DAILY Supplement 10/06/25
sitagliptin phosphate 100 mg tablet (Januvia) 100 mg PO DAILY Diabetes 10/06/25
hydrocortisone acetate 25 mg rectal suppository 25 mg OK HS Gastrointestinal issue #0 ea 10/08/25
prednisone 10 mg tablet 10 mg PO DIRECTED Lung/breathing issues #0 tabs 10/08/25
atorvastatin 40 mg tablet 40 mg PO HS High cholesterol 10/16/25
bisacodyl 10 mg rectal suppository (Dulcolax (bisacodyl)) 10 mg OK DAILY PRN if MOM is ineffective 10/16/25
magnesium hydroxide 400 mg/5 mL oral suspension (Milk of Magnesia) 15 ml PO DAILY PRN if no BM x3 days 10/16/25
sodium phosphates 19 gram-7 gram/118 mL enema (Fleet Enema) 118 ml OK ONCE 10/16/25
Review of Systems
-
History Source: Patient
A 12 point ROS was completed and negative except as noted: Yes
Constitutional: Reports Fatigue; Denies Fever or Chills
EENT: Reports Sore Throat
Respiratory: Denies Cough, Hemoptysis or Trouble Breathing
Cardiac: Reports Chest Pain; Denies Diaphoresis, Palpitations or Syncope
Abdomen/GI: Reports Nausea, Vomiting and Anorexia; Denies Abdominal Pain, Diarrhea, Constipated, Bloody Stools or Black Stools
: Denies Dysuria or Frequency
Musculoskeletal: Denies Joint Pain or Edema
Neurological: Denies Dizzy or Headache
Psych: Denies Depression or Anxiety
Physical Exam
Vital Signs
Vital Signs
Temp Pulse Resp BP Pulse Ox
98.4 F 111 23 137/73 95
10/16/25 00:09 10/16/25 02:01 10/16/25 02:00 10/16/25 02:01 10/16/25 02:12
Physical Exam
General: Other (84y M in no acute distress. BiPAP in place.)
HEENT: Moist mucous membranes, PERRLA and Other (Neck is supple. No significant adenopathy, evident mass, etc.)
Respiratory: Other (Scattered wheezes throughout. No rales / rhonchi.)
Cardiac: S1/S2 and Tachycardia; No Murmur
GI: Soft, Non Tender, Non Distended and Normal Bowel Sounds
Musculoskeletal: No Clubbing, No Cyanosis and No Edema
Neuro: AO x 3
Laboratory Results
-
10/16/25 00:24
10/16/25 00:24
Laboratory Results
Lactic Acid Cancelled 10/16/25 04:15
Total Bilirubin 0.6 mg/dl (0.2-1.3) 10/16/25 00:24
AST 17 U/L (17-59) 10/16/25 00:24
ALT 14 U/L (0-50) 10/16/25 00:24
Alkaline Phosphatase 102 U/L (38-126) 10/16/25 00:24
Troponin I 0.060 ng/ml H* 10/16/25 00:24
Impression/Plan
-
A/P: Patient is an 84y M with PMH significant for COPD, chronic hypoxemia / hypercapnia and hypertension who presents to ED complaining of difficulty swallowing.
Dysphagia / Odynophagia
- Admit for further evaluation and treatment.
- Patient with prior h/o dysphagia, previous GI bleed episodes, etc. Now with new symptoms x 1 week.
- NPO for now. IV PPI BID.
- GI evaluation for additional recommendations / possible endoscopic examination.
- Speech / swallow evaluation.
- Follow for any new / worsening symptoms.
Severe COPD
Chronic Hypoxemic and Hypercapnic Respiratory Failure
- Stable. Patient denies any new respiratory complaints / changes and his resp status appears to be at baseline.
- Continue NC O2 during the day with goal SpO2 = 88-94%.
- Continue nightly BiPAP at 15/5 as per previous Pulmonary recommendations.
- Continue usual inhaled medication regimen.
- Continue usual prednisone 10mg daily dose.
- Follow for any new changes / complaints.
Chronic HFpEF
- Patient does not appear volume overloaded despite marked / new elevation in BNP.
- Weight is unchanged, CXR with no evident pulmonary edema, etc.
- He is not maintained on chronic diuretic regimen, etc.
- Hold further Lasix for now.
- Follow I/Os, daily weights, etc.
- Update Echo.
Abnormal Troponin / BNP
- Troponin = 0.06. Has had similar elevations in the past.
- EKG with chronic RBBB and some non-specific ST-T wave changes when compared with prior tracings.
- Follow for any chest discomfort (none at present and prior episodes only occurred with swallowing).
- Begin IV heparin if rising troponin, new chest pain, etc.
- Echo as noted above.
Benign Hypertension
Paroxysmal Atrial Fibrillation
- Stable. Continue current CV med regimen with holding parameters.
- Patient not on chronic OAC due to prior instances of adverse bleeding.
DM-II
- Stable. Hold PO medication acutely.
- Follow glucose and cover with SSI as needed.
- A1C was 7.3% in August.
Nephrolithiasis / Recent UTI and Sepsis
- Stable. Recent issues with urinary retention during hospital stays.
- Follow bladder scan protocol / cath if necessary.
Right Renal Mass
- Stable. Requires further outpatient evaluation / monitoring.
Sacral Wound
- Continue local wound care.
DVT Prophylaxis: Lovenox
Code Status: DNR
--- NOTE | 2025-10-16 04:56 | PTCARENOTE ---
received patient fro ed. patient on continuous bipap. Patient hr tachy, 100-115. CHG wipes done. Patient refused lab draws this morning. Patient is easily agitated and can be uncooperative. assessment and vitals charted. call rose in reach. bed
alarm on.
[2025-10-16] MEDS: NSS (PRESERVATIVE FREE) 10 ML IV ×2 (07:03→20:40)
[2025-10-16] MEDS: PROTONIX IV 40 MG IV ×2 (07:03→20:40)
[2025-10-16] MEDS: CARDIZEM CD 120 MG PO (07:03)
[2025-10-16] MEDS: FLOMAX 0.4 MG PO ×2 (07:03→20:40)
[2025-10-16] MEDS: LOW STRENGTH ASPIRIN 81 MG PO (07:03)
[2025-10-16] MEDS: DELTASONE 10 MG PO (07:03)
[2025-10-16] MEDS: PULMICORT 0.5 MG INH ×2 (07:38→19:47)
--- NOTE | 2025-10-16 08:04 | W.PN.HOSP.TC ---
Today's Communication/Plan
-
Speech consult
GI consult
Monitor troponin
Assessment / Plan
Assessment / Plan
Gen-awake, alert, mildly tachypneic, no acute distress
HEENT-NC, AT, anicteric, clear oral mm
Neck-supple
CV-reg, no M, +S1/S2
Lungs-mild end expiratory wheezes bilaterally
Abd-soft, NT, ND
Ext-no edema
Musculoskeletal-no cyanosis, clubbing
Skin-warm and dry
Neuro-grossly non-focal
Psych-calm, cooperative
Dysphagia -suspect has been present off-and-on for at least a month. He was complaining about this to me in late August during his hospitalization then. In late August 2025 he was evaluated by speech therapy, recommendation for regular diet
and thin liquids. Noted to have mild dysphagia.
Denies history of EGD or workup for dysphagia.
Currently n.p.o. awaiting speech therapy and GI input.
States he has lost weight but unable to quantitate. Looking back in the system, his weight was 66 kg in December of this year, currently 60 kg.
Severe COPD without exacerbation -mild wheezing on exam. Steroid and oxygen dependent. Uses 2 L of oxygen at home continuously. Was on BiPAP last night, transitioned back to 2 L nasal cannula this morning.
Continue inhalers, steroids.
Troponin elevation -troponin on admission 0.06, repeat pending. Denies chest pain. Doubt ACS. Suspect acute nonischemic myocardial injury.
Chronic heart failure preserved EF -stable. Does not look volume overloaded. Weight is stable compared to previous hospitalization. However, BNP 15,700. Monitor for now.
Chest x-ray done on admission, report pending.
Essential hypertension -relative hypotension noted. Monitor closely. Did receive diltiazem this morning.
Paroxysmal atrial fibrillation -not on chronic anticoagulation due to frailty, falls.
Hyperlipidemia -atorvastatin.
DM 2 with peripheral neuropathy -was on Januvia prior to admission. Continue low resistance NovoLog sliding scale.
Nephrolithiasis
Right renal mass
Sacral wound
Cognitive impairment
History of prostate cancer
DNR
Anticipated Discharge: > 48 hours
Subjective/Interval History
-
Date of Service: October 16, 2025
Patient seen and examined. Complaining of dysphagia to solids and liquids. Denies odynophagia. Complaining of weight loss but unable to quantitate. States his breathing is at baseline.
Objective Data
-
Labs:
Laboratory Results
10/16/25 10/16/25
00:24 07:31
WBC 14.9 H
Hgb 13.9
Hct 45.0
Plt Count 159
Sodium 135 Pending
Potassium 4.6 Pending
Chloride 95 L Pending
Carbon Dioxide 35 H Pending
BUN 22 H Pending
Creatinine 0.7 Pending
Glucose 158 H Pending
Calcium 7.9 L Pending
Total Bilirubin 0.6
AST 17
ALT 14
Alkaline Phosphatase 102
Vital Signs:
Vital Signs
Temp Pulse Resp BP Pulse Ox
98.4 F 111 28 97/58 88
10/16/25 00:09 10/16/25 08:01 10/16/25 08:01 10/16/25 06:00 10/16/25 08:01
I&O
10/15/25 10/16/25 10/17/25
06:59 06:59 06:59
Output Total 175 / 175
Balance -175 / -175
Review of Systems
-
History Source: Patient
All other systems: Reviewed and negative
[2025-10-16 08:08] LABS: Troponin I 0.063 ng/ml
[2025-10-16 08:15] LABS: Blood Urea Nitrogen 23 mg/dl (9-20); Calcium 7.6 mg/dl (8.4-10.2); Carbon Dioxide 35 mmol/L (22-30); Chloride 93 mmol/L (98-107); Estimated Creatinine Clearance 65 ml/min; Glucose 249 mg/dl (70-99); HDL Cholesterol 51 mg/dl; LDL Cholesterol, Calculated 47 mg/dl; Potassium 4.0 mmol/L (3.5-5.1); Sodium 133 mmol/L (135-145); Very Low Density Lipoprotein 13 mg/dl (0-30); eGFR > 60.00
[2025-10-16] MEDS: NOVOLOG FLEXPEN-LOW RESISTANCE SC (08:32)
[2025-10-16 11:23] LABS: Troponin I 0.052 ng/ml
[2025-10-16 11:54] LABS: Glucose - Point of Care 257 mg/dl (70-99)
--- NOTE | 2025-10-16 12:54 | PTOTSP ---
Speech Therapy Evaluation
Pt is at an increased risk of aspiration given PMH severe COPD, chronic hypoxemic and hypercapnic respiratory failure, GERD, and oxygen dependency, with multiple recent hospitalizations. Pt with chief complaint of difficulty swallowing on admission.
At bedside, pt denying dysphagia and noted it only occurs during large meals and with large bites. Pt providing conflicting information, at times confirming and then denying dysphagia. Pt managed trials of thin liquids, puree solids, and ground
solids with no overt s/sx of aspiration and no odynophagia. Cannot rule out silent aspiration at bedside. Pt denied pharyngeal stasis across all trials. RR and SpO2 remained stable during trials. Regular solids were offered but pt declined. Per most
recent CXR (10/16), new findings concerning for developing mild mid left lung pneumonia. Pt previously had VSE completed 06/04/23 (mild pharyngeal dysphagia with events of both penetration and aspiration with thin and mildly thick liquids as well as
esophageal stasis and retroflow).
Recommendation:�
1. IDDSI 5 Minced and Moist, thin water
2. Medication as best tolerated
3. Aspiration precautions, including HOB elevated during PO intake and at least 30 minutes after PO intake, small bites, slow rate
4. PO intake only if RR less than 30 and SpO2 great than 90%
5. Complete VSE to objectively assess swallow function
[2025-10-16] MEDS: NOVOLOG FLEXPEN-LOW RESISTANCE 3 UNITS SC (13:27)
--- NOTE | 2025-10-16 14:50 | PTCARENOTE ---
Pt received in bed @ 0700 from previous shift. BiPAP removed and pt placed on 2L NC; SaO2 93%. Pt swallowed scheduled medications without difficulty.
--- NOTE | 2025-10-16 15:37 | CON.GI ---
Consultation
-
Date/Time Consultation Requested: 10/16/2025
Date/Time Consultation Performed: 10/16/2025
Requesting Provider: Hospitalist
Performing Provider: Loan LINO
Reason for Consultation: Dysphagia
Medical History
Chief Complaint / HPI
Chief Complaint: Trouble swallowing
History of Present Illness:
84-year-old male with below mentioned past medical history admitted to ED yesterday with difficulty swallowing. Patient was admitted recently admitted to hospital With fall and was discharged on 10/08/2025. Patient claims he has been experiencing
intermittent difficulty swallowing both solid and liquid for the last few months. He feels food regurgitates back. He also has difficulty chewing food as he feels he gets short of breath on attempting to chew.
During last hospitalization he was evaluated by speech therapy and was recommended regular diet and thin liquid. No prior EGD. He denies any nausea or vomiting. He also thinks he has lost some weight in the recent past with hospitalization and
not eating well..
Past Medical History
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
Past Surgical History: Other (Cholecystectomy )
Social History
Alcohol: None
Allergies / Home Medications
Allergy/AdvReac Type Severity Reaction Status Date / Time
No Known Allergies Allergy Verified 10/05/25 19:31
�Medication �Instructions �Recorded
diltiazem HCl 120 mg 120 mg PO DAILY Arrhythmia #30 caps 06/04/23
capsule,extended release 24 hr
albuterol sulfate 2.5 mg/3 mL 2.5 mg inhalation R Q6HPRN PRN 11/07/23
(0.083 %) solution for nebulization wheezing
budesonide 0.5 mg/2 mL suspension 0.5 mg inhalation R BID 05/13/24
for nebulization Lung/Breathing Issues
omeprazole 20 mg capsule,delayed 20 mg PO DAILYPRN PRN 05/13/24
release Gastrointestinal Issue
tamsulosin 0.4 mg capsule 0.4 mg PO BID Urinary issue 05/13/24
sodium chloride 0.65 % nasal spray 1 spray intranasal QIDPRN PRN dry 07/15/25
aerosol (Saline Nasal) nares #44 mL
acetaminophen 325 mg tablet 650 mg PO Q6HPRN PRN mild pain 09/12/25
(Tylenol)
aspirin 81 mg chewable tablet 81 mg PO DAILY Blood Clot 09/16/25
Prevention/Tx
ipratropium 0.5 mg-albuterol 3 mg 3 ml inhalation R Q4HPRN PRN 09/23/25
(2.5 mg base)/3 mL nebulization SOB/wheezing #180 mL
soln
gabapentin 300 mg capsule 300 mg PO TIDPRN PRN nerve pain 09/30/25
Lactobac no.2-Bifidobac no.1-S. 1 cap PO DAILY Supplement 10/06/25
thermo 112.5 billion cell capsule
(Visbiome)
magnesium oxide 400 mg PO DAILY Supplement 10/06/25
sitagliptin phosphate 100 mg 100 mg PO DAILY Diabetes 10/06/25
tablet (Januvia)
hydrocortisone acetate 25 mg 25 mg MO HS Gastrointestinal issue 10/08/25
rectal suppository #0 ea
prednisone 10 mg tablet 10 mg PO DIRECTED 10/08/25
Lung/breathing issues #0 tabs
atorvastatin 40 mg tablet 40 mg PO HS High cholesterol 10/16/25
bisacodyl 10 mg rectal suppository 10 mg MO DAILY PRN if MOM is 10/16/25
(Dulcolax (bisacodyl)) ineffective
magnesium hydroxide 400 mg/5 mL 15 ml PO DAILY PRN if no BM x3 days 10/16/25
oral suspension (Milk of Magnesia)
sodium phosphates 19 gram-7 118 ml MO ONCE 10/16/25
gram/118 mL enema (Fleet Enema)
Review of Systems
Vital Signs
Temp Pulse Resp BP Pulse Ox
98.2 F 95 18 101/67 92
10/16/25 15:26 10/16/25 15:19 10/16/25 15:19 10/16/25 12:00 10/16/25 15:19
Physical Exam
Exam
General: Comfortable
Respiratory: Rhonchi
GI: Soft, Non Tender and Non Distended
Results
WBC 14.9 10^3/uL (4.8-10.8) H 10/16/25 00:24
Hgb 13.9 g/dL (13.0-18.0) 10/16/25 00:24
Hct 45.0 % (39.0-52.0) 10/16/25 00:24
MCV 93.4 fL (80.0-94.0) 10/16/25 00:24
Plt Count 159 10^3/uL (130-400) 10/16/25 00:24
Absolute Neuts (auto) 12.8 10^3/uL (1.4-6.5) H 10/16/25 00:24
Sodium 133 mmol/L (135-145) L 10/16/25 07:31
Potassium 4.0 mmol/L (3.5-5.1) 10/16/25 07:31
Chloride 93 mmol/L (98-107) L 10/16/25 07:31
Carbon Dioxide 35 mmol/L (22-30) H 10/16/25 07:31
BUN 23 mg/dl (9-20) H 10/16/25 07:31
Creatinine 0.7 mg/dL (0.7-1.3) 10/16/25 07:31
Calcium 7.6 mg/dl (8.4-10.2) L 10/16/25 07:31
Total Bilirubin 0.6 mg/dl (0.2-1.3) 10/16/25 00:24
AST 17 U/L (17-59) 10/16/25 00:24
ALT 14 U/L (0-50) 10/16/25 00:24
Alkaline Phosphatase 102 U/L (38-126) 10/16/25 00:24
Diagnostic Image Results:
Prior GI Procedures:
EGD: none
Colonoscopy: unable to recall
Assessment / Plan
-
84-year-old male with history of A-fib not on anticoagulation due to falls, COPD on oxygen, prostate cancer with prior radiation, diabetes, hypertension, heart failure admitted with difficulty swallowing.Patient was admitted multiple times this year
with various medical issues. Currently complaining of difficulty swallowing solids/liquids for the last 1 to 2 months. He also claims difficulty chewing food because of shortness of breath. No prior EGD. Patient was evaluated with speech and
swallow eval back in September and was recommended regular diet.
-- Intermittent dysphagia
plan
Patient is awaiting speech and swallow eval.
Considering he has severe COPD (on oxygen ) Will start GI evaluation with barium esophagram
Patient complains of difficulty chewing solid food. Advised on soft diet
continue PPI
Total Time Spent with Patient (in minutes): 35
-
-
Thank you for consultation and allowing me to participate in the patient's care. Please call the mine production engineer GI physician during the after hours with any questions or concerns.
--- NOTE | 2025-10-16 15:50 | CM ---
Initial assessment completed. Patient is an 84y M with PMH significant for COPD, chronic hypoxemic and hypercapnic respiratory failure, DM-II and multiple recent hospitalizations for UTI / sepsis, kidney stones, COPD and syncope who presents to
ED complaining of difficulty swallowing.
Patient was last admitted 10/06 - 10/08
Patient resides alone in apartment at [facility]. No steps, elevator access. Patient uses w/c, has home O2 (2L), portable O2, nebulizer and Bipap. Patient gets assistance w/ toileting/bathing, has aides through the home and community
waiver. Patient receives about 12 hours, was recently working on increasing aide care to 24 hours. Farbicio and CANDI mcdaniels, patient was recently at [facility] rehab following last admission.
PCP: Patient unable to confirm
Pharmacy: [facility]
ST evaluated- skilled service needs
Plan: Home, likely w/ home health services
[2025-10-16] MEDS: TYLENOL 650 MG PO (16:25)
[2025-10-16 18:07] LABS: Glucose - Point of Care 192 mg/dl (70-99)
[2025-10-16] MEDS: NOVOLOG FLEXPEN-LOW RESISTANCE 1 UNITS SC (18:12)
[2025-10-16] MEDS: LOVENOX 40 MG SC (18:12)
[2025-10-16] MEDS: LIPITOR 40 MG PO (20:40)
[2025-10-16 21:33] LABS: Glucose - Point of Care 185 mg/dl (70-99)
[2025-10-17] VITALS (17 sets, daily range): BP systolic 105–133; BP diastolic 60–105; PULSE 2–108; BMI 18.8
--- NOTE | 2025-10-17 01:17 | PTCARENOTE ---
Assumed care of pt from day RN. Pt AAOx3 able to make needs known. Pt incontinent at times, using urinal pt needs to stand at bed side this exacerbates Pt respiratory instability. Pt offered male PW, education given. Pt in agreeable to trying out
the male PW at this time. Pt currently on BiPAP 6L 07/25 spo2 88%-91% Call rose within reach bed in lowest position alarm on.
[2025-10-17 04:20] LABS: Hematocrit 41.6 % (39.0-52.0); Hemoglobin 12.9 g/dL (13.0-18.0); Mean Corp Hgb Conc. 31.0 g/dL (33.0-37.0); Mean Corpuscular Volume 90.4 fL (80.0-94.0); Platelet Count 142 10^3/uL (130-400); Red Cell Dist. Width 13.3 % (11.5-14.5)
[2025-10-17] MEDS: MORPHINE SULFATE 2 MG IV ×6 (04:21→22:02)
--- NOTE | 2025-10-17 04:27 | PTCARENOTE ---
Pt having complaints of sob/discomfort taking breaths rr into the 30's and back pain, prn medication given per order. Pt saying to this RN ' I cant do this anymore, just let me go for good' emotional support given, SUPERVISOR [employer] made aware. Pt finding almost
immediate relief with PRN medication. Pt remains on BiPAP 7l /, at this time spo2 98%. at thsi time respirations even unlabored. call rose within reach bed in lowest position alarm on.
[2025-10-17 04:32] LABS: Blood Urea Nitrogen 26 mg/dl (9-20); Calcium 7.7 mg/dl (8.4-10.2); Carbon Dioxide 35 mmol/L (22-30); Chloride 95 mmol/L (98-107); Estimated Creatinine Clearance 63 ml/min; Glucose 158 mg/dl (70-99); Potassium 3.9 mmol/L (3.5-5.1); Sodium 134 mmol/L (135-145); eGFR > 60.00
[2025-10-17] MEDS: DUONEB 3 ML INH ×4 (05:58→18:11)
[2025-10-17] MEDS: PULMICORT 0.5 MG INH ×2 (05:58→18:11)
--- NOTE | 2025-10-17 06:15 | PTCARENOTE ---
Pt ringing rose to inform RN that he is feeling anxious and can not 'catch his breath'. Pt on bipap spo2 96% RR30's Night SALES AND LEASING CONSULTANT made aware. Emotional support given to Pt. RT called to give treatment. more emotional support given. Call rose with in
reach bed in lowest position.
--- NOTE | 2025-10-17 07:50 | W.PN.HOSP.TC ---
Addendum entered and electronically signed by Johnnie Mcmillan DO 10/17/25 12:33:
Patient has become more hypoxic and unable to oxygenate adequately on nasal cannula. Currently on 15 L with pulse ox readings in the 85 to 88% range.
Went back to visit patient and now he tells me that he is ready to . Does not want any more heroic treatments. He states that he is 84 years old and is tired of fighting. He is agreeable to hospice.
We discussed hospice philosophy including plans for comfort measures. We discussed that hospice means he will no longer be hospitalized in the future. Will avoid aggressive treatments. Goal would be to pass in peace.
Mr. Gonzalez is agreeable with hospice plans.
I called patient's son Oscar and left a voicemail to discuss further.
Hospice consult placed.
IV morphine as needed for comfort and shortness of breath.
Discussed with nursing.
Original Note:
Today's Communication/Plan
-
PT/OT
Videofluoroscopy in the morning
Barium swallow
Assessment / Plan
Assessment / Plan
Gen-awake, alert, mildly tachypneic, no acute distress
HEENT-NC, AT, anicteric, clear oral mm
Neck-supple
CV-reg, no M, +S1/S2
Lungs-mild end expiratory wheezes bilaterally
Abd-soft, NT, ND
Ext-no edema
Musculoskeletal-no cyanosis, clubbing
Skin-warm and dry
Neuro-grossly non-focal
Psych-calm, cooperative
Dysphagia -suspect has been present off-and-on for at least a month. He was complaining about this to me in late August during his hospitalization then. In late August 2025 he was evaluated by speech therapy, recommendation for regular diet
and thin liquids. Noted to have mild dysphagia.
Denies history of EGD or workup for dysphagia.
Speech therapy evaluated patient and recommended minced and moist diet, thin liquids. Video swallowing study on Saturday.
States he has lost weight but unable to quantitate. Looking back in the system, his weight was 66 kg in December of this year, currently 60 kg.
GI consult noted, awaiting barium esophagram. Remains at higher risk for pulmonary complications with EGD given underlying severe COPD.
Severe COPD without exacerbation -mild wheezing on exam. Steroid and oxygen dependent. Uses 2 L of oxygen at home continuously. Currently on BiPAP, transition back to nasal cannula.
Continue inhalers, steroids.
Chronic hypoxic respiratory failure -due to advanced severe COPD, oxygen dependent at home.
Admission 1 view chest x-ray showed left midlung field mild opacification. Clinically I doubt he has pneumonia. No fevers here. No signs or symptoms of sepsis. Mild leukocytosis improving without antibiotics. His cough has not changed. Oxygen
requirements have not changed. Observe off antibiotics.
Troponin elevation -troponin trending down. Denies chest pain. Doubt ACS. Suspect acute nonischemic myocardial injury.
Hyponatremia -134. Monitor for now.
Chronic heart failure preserved EF -stable. Does not look volume overloaded. Weight is stable compared to previous hospitalization. However, BNP 15,700. Monitor for now.
Last echocardiogram 12/25/2024, LVEF 65 to 70%, normal regional wall motion, low normal right ventricular systolic function. Estimated PA pressure 20 to 25 mmHg.
Echocardiogram ordered for Saturday.
Essential hypertension -relative hypotension noted. Monitor closely. Did receive diltiazem this morning.
Paroxysmal atrial fibrillation -not on chronic anticoagulation due to frailty, falls.
Hyperlipidemia -atorvastatin.
DM 2 with peripheral neuropathy -was on Januvia prior to admission. Continue low resistance NovoLog sliding scale.
Glucose 158 this morning.
Last hemoglobin A1c 7.3% August 2025.
Nephrolithiasis
Right renal mass
Sacral wound
Cognitive impairment
History of prostate cancer
DNR
PT/OT
Anticipated Discharge: > 48 hours
Subjective/Interval History
-
Date of Service: October 17, 2025
Patient seen and examined. No new complaints.
Objective Data
-
Labs:
Laboratory Results
10/17/25
04:04
WBC 11.6 H
Hgb 12.9 L
Hct 41.6
Plt Count 142
Sodium 134 L
Potassium 3.9
Chloride 95 L
Carbon Dioxide 35 H
BUN 26 H
Creatinine 0.7
Glucose 158 H
Calcium 7.7 L
Vital Signs:
Vital Signs
Temp Pulse Resp BP Pulse Ox
97.7 F 100 20 133/79 99
10/17/25 07:45 10/17/25 06:02 10/17/25 06:02 10/17/25 06:00 10/17/25 06:02
I&O
10/16/25 10/17/25 10/18/25
06:59 06:59 06:59
Intake Total 180 / 180
Output Total 175 / 175 450 / 450
Balance -175 / -175 -270 / -270
Review of Systems
-
History Source: Patient
All other systems: Reviewed and negative
[2025-10-17 08:21] LABS: Glucose - Point of Care 157 mg/dl (70-99)
[2025-10-17] MEDS: LOW STRENGTH ASPIRIN 81 MG PO (09:07)
[2025-10-17] MEDS: CARDIZEM CD 120 MG PO (09:07)
[2025-10-17] MEDS: PROTONIX 40 MG PO (09:07)
[2025-10-17] MEDS: DELTASONE 10 MG PO (09:07)
[2025-10-17] MEDS: FLOMAX 0.4 MG PO ×2 (09:07→19:24)
[2025-10-17] MEDS: DESENEX/MITRAZOL/ZEASORB 1 APPLIC TOPICAL (09:08)
[2025-10-17] MEDS: NOVOLOG FLEXPEN-LOW RESISTANCE 1 UNITS SC ×2 (09:09→13:13)
[2025-10-17 12:05] LABS: Glucose - Point of Care 180 mg/dl (70-99)
--- NOTE | 2025-10-17 12:36 | W.PN.GI.CBS2 ---
Today's Communication / Plan
-
Hospice care
Assessment / Plan
-
84-year-old male with history of A-fib not on anticoagulation due to falls, COPD on oxygen, prostate cancer with prior radiation, diabetes, hypertension, heart failure admitted with difficulty swallowing.Patient was admitted multiple times this year
with various medical issues. Currently complaining of difficulty swallowing solids/liquids for the last 1 to 2 months. He also claims difficulty chewing food because of shortness of breath. No prior EGD. Patient was evaluated with speech and
swallow eval back in September and was recommended regular diet.
-- Intermittent dysphagia
plan
speech and swallow eval reviewed
Considering he has severe COPD (on oxygen ) our plan is to start GI evaluation with barium esophagram. Informed by medical team that patient prefers hospice -they will cancel barium esophagram
will s/o
Total Time Spent with Patient (in minutes): 35
Subjective
Subjective
Date of Service: October 17, 2025
Patient has been on BiPAP. As per RN he is refusing to eat
Objective
Data Reviewed
Laboratory Data:
Laboratory Results
10/17/25 04:04
10/17/25 04:04
Laboratory Results
Total Bilirubin 0.6 mg/dl (0.2-1.3) 10/16/25 00:24
AST 17 U/L (17-59) 10/16/25 00:24
ALT 14 U/L (0-50) 10/16/25 00:24
Alkaline Phosphatase 102 U/L (38-126) 10/16/25 00:24
Vital Signs and I&O:
Vital Signs
Temp Pulse Resp BP Pulse Ox
97.7 F 89 18 133/79 90
10/17/25 07:45 10/17/25 11:26 10/17/25 11:26 10/17/25 06:00 10/17/25 11:40
I&O
10/16/25 10/17/25 10/18/25
06:59 06:59 06:59
Intake Total 180 / 180
Output Total 175 / 175 450 / 450
Balance -175 / -175 -270 / -270
Physical Exam
Physical Exam
HEENT: Other (In Respiratory distress -on BiPAP)
GI: Soft and Non Distended
--- NOTE | 2025-10-17 12:46 | CM ---
Chart reviewed. CM consulted for hospice. Per hospitalist, patient agreeable to hospice at SNF
CM placed [facility] referral. Spoke w/ Meenakshi/patient liaison, will follow up w/ CM tomorrow but can call family today to arrange for a meeting
Plan: Hospice follow up
--- NOTE | 2025-10-17 14:28 | HOSPNOTE ---
Addendum entered by Meenakshi Caro RN 10/17/25 14:30:
After reading the Attending's notes patient will most likely need to be inpatient hospice due to oxygen requirements. I will speak with son when he calls me back.
Original Note:
Referral received for hospice. I tried to call son and had to leave a message. I will explain hospice and the philosophy and I understand patient will need placement. More information to follow.
--- NOTE | 2025-10-17 15:20 | PTCARENOTE ---
Pt received in bed @ 0700 with BiPAP 10/; 6L NC. Unable to remove BiPAP and maintain SaO2 when 2L NC reapplied. O2 increased to 15L Midflow, SaO2 to 88%. Order for High Flow, ABG, CXR. Pt stating 'I do not want to do this anymore. I'm done with it.
I just want to .' Palliative and Hospice philosophy explained and pt clearly able to state that it's what he would want if he were a candidate. Stating he is not interested in further interventions other than goal of comfort. Dr. Mcmillan present
at bedside to discuss end of life care. High Flow, ABG, and CXR ordered cancelled. PRN Morphine 2mg IV given for shortness of breath. NC able to be weaned to 6L; SaO2 93%
[2025-10-17 17:28] LABS: Glucose - Point of Care 211 mg/dl (70-99)
[2025-10-17] MEDS: NOVOLOG FLEXPEN-LOW RESISTANCE 2 UNITS SC (17:32)
[2025-10-17] MEDS: DESENEX/MITRAZOL/ZEASORB TOPICAL (19:24)
[2025-10-17 21:40] LABS: Glucose - Point of Care 213 mg/dl (70-99)
[2025-10-18] VITALS (13 sets, daily range): BP systolic 102–126; BP diastolic 67–80; BMI 19.7
--- NOTE | 2025-10-18 02:15 | PTCARENOTE ---
Received patient in bed at start of shift. AAOx3. Pleasant and cooperative with care. 02 @ [address] and sating in mid low 90s. PRN Morphine given for SOB with + results. Patient states ' Morphine is helping a lot with my breathing!'
No signs of distress noted. Patient declining Bipap at current time. Resp aware. Call rose within reach.
[2025-10-18] MEDS: MORPHINE SULFATE 2 MG IV ×7 (03:19→19:35)
--- NOTE | 2025-10-18 06:08 | PTCARENOTE ---
Patient feeling the need to void but having difficulty. Bladder scanned patient with result of 605. However, patient refusing to be straight cathed despite multiple RNs speaking with patient about the need to be straight cathed. Patient requesting
Flomax early to help him urinate. NANCI notified and ok'd 08:00 flomax to be given now.
[2025-10-18] MEDS: FLOMAX 0.4 MG PO ×2 (06:12→19:37)
[2025-10-18] MEDS: PULMICORT 0.5 MG INH ×2 (07:25→19:40)
[2025-10-18] MEDS: DUONEB 3 ML INH ×4 (07:25→19:40)
--- NOTE | 2025-10-18 07:46 | W.PN.HOSP.TC ---
Today's Communication/Plan
-
Patient stated he wants hospice.
Case management/hospice nurse trying to reach patient's son. Plan for inpatient hospice admission.
Assessment / Plan
Assessment / Plan
Physical Exam
Gen-not in acute distress
HEENT-NC, AT, anicteric, clear oral mm
Neck-supple
CV-reg, no M, +S1/S2
Lungs-mild end expiratory wheezes bilaterally
Abd-soft, NT, ND
Ext-no edema
Musculoskeletal-no cyanosis, clubbing
Skin-warm and dry
Neuro-grossly non-focal
Psych-calm, cooperative
Assessment/Plan
Dysphagia -suspect has been present off-and-on for at least a month. He was complaining about this in late August during his hospitalization then. In late August 2025 he was evaluated by speech therapy, recommendation for regular diet and thin
liquids. Noted to have mild dysphagia.
Denies history of EGD or workup for dysphagia.
Speech therapy evaluated patient and recommended minced and moist diet, thin liquids. Patient is adamant that he wants hospice and regular diet.
States he has lost weight but unable to quantitate. Looking back in the system, his weight was 66 kg in December of this year, currently 60 kg.
GI consult noted, awaiting barium esophagram. Remains at higher risk for pulmonary complications with EGD given underlying severe COPD.
Severe COPD without exacerbation -mild wheezing on exam. Steroid and oxygen dependent. Uses 2 L of oxygen at home continuously. Currently on BiPAP, transition back to nasal cannula.
Continue inhalers, steroids.
Chronic hypoxic respiratory failure -due to advanced severe COPD, oxygen dependent at home.
Admission 1 view chest x-ray showed left midlung field mild opacification. Clinically I doubt he has pneumonia. No fevers here. No signs or symptoms of sepsis. Mild leukocytosis improving without antibiotics. His cough has not changed. Oxygen
requirements have not changed. Observe off antibiotics.
Troponin elevation -troponin trending down. Denies chest pain. Doubt ACS. Suspect acute nonischemic myocardial injury.
Hyponatremia - BMP to be rechecked later on
Chronic heart failure preserved EF -stable. Does not look volume overloaded. Weight is stable compared to previous hospitalization. However, BNP 15,700. Monitor for now.
Last echocardiogram 12/25/2024, LVEF 65 to 70%, normal regional wall motion, low normal right ventricular systolic function. Estimated PA pressure 20 to 25 mmHg.
Essential hypertension -relative hypotension noted. Monitor closely. Did receive diltiazem this morning.
Paroxysmal atrial fibrillation -not on chronic anticoagulation due to frailty, falls.
Hyperlipidemia -atorvastatin.
DM 2 with peripheral neuropathy -was on Januvia prior to admission. Continue low resistance NovoLog sliding scale.
Glucose 158 this morning.
Last hemoglobin A1c 7.3% August 2025.
Nephrolithiasis
Right renal mass
Sacral wound
Cognitive impairment
History of prostate cancer
DNR
PT/OT
Anticipated Discharge: 24 - 48 hours
Subjective/Interval History
-
Date of Service: October 18, 2025
Patient was seen and examined. No new symptoms or issues.
Objective Data
-
Vital Signs:
Vital Signs
Temp Pulse Resp BP Pulse Ox
97.2 F 110 20 125/74 92
10/18/25 03:25 10/18/25 07:27 10/18/25 07:27 10/18/25 06:00 10/18/25 07:27
I&O
10/17/25 10/18/25 10/19/25
06:59 06:59 06:59
Intake Total 180 / 180 720 / 720
Output Total 450 / 450 300 / 300
Balance -270 / -270 420 / 420
--- NOTE | 2025-10-18 08:00 | PTCARENOTE ---
received patient from previous RN at change of shift. pt resting comfortably AAOX3. pt SOB at rest, requesting prn morphine. SR/ST on telemetry heart rate [id number]. pulses palpable. pt on 10L midflow nasal cannula, sat 96%. lung sounds coarse,
rhonchi throughout. active bowel sounds, pt reports poor appetite. incontinent of urine- male purewick in place. pt updated on plan of care. see worklist for full nursing assessment and interventions.
[2025-10-18] MEDS: CARDIZEM CD 120 MG PO (08:02)
[2025-10-18] MEDS: DELTASONE 10 MG PO (08:02)
[2025-10-18] MEDS: NOVOLOG FLEXPEN-LOW RESISTANCE SC (08:03)
[2025-10-18] MEDS: DESENEX/MITRAZOL/ZEASORB 1 APPLIC TOPICAL ×2 (08:04→19:37)
[2025-10-18 08:12] LABS: Glucose - Point of Care 119 mg/dl (70-99)
--- NOTE | 2025-10-18 11:43 | HOSPNOTE ---
Spoke with patient about hospice and the philosophy. The patient is in agreement and will need to be inpatient hospice. The patient would like his son to review the consent form I have tried 3x to reach the son but the mailbox is full and unable to
leave a message. I will continue trying.
--- NOTE | 2025-10-18 11:56 | CM ---
F/U: [facility] ([facility] is still trying to reach the son for consents. The plan is to admit tomorrow for Inpatient Hospice. PLAN: Inpatient Hospice.
[2025-10-18 12:05] LABS: Glucose - Point of Care 175 mg/dl (70-99)
[2025-10-18] MEDS: NOVOLOG FLEXPEN-LOW RESISTANCE 1 UNITS SC (12:46)
--- NOTE | 2025-10-18 14:40 | PTCARENOTE ---
pt refusing to be turned/repositioned and refusing to be washed up. will attempt again this afternoon.
--- NOTE | 2025-10-18 15:56 | PN.CDI ---
CDI
- -
CDI:
Physician Documentation Request
Admit Date: 10/16/25 03:24
Dear Doctor Niraj,
Per H&P, patient has history of Chronic Hypoxemic and Hypercapnic Respiratory Failure. Hospitalist progress note states 'Uses 2 L of oxygen at home continuously.'
ED record states 'Oxygen therapy was escalated from 2 liters nasal cannula to 15 liters via mask.'
Please clarify which of the following accurately represents the acuity of the respiratory failure.
Acute on Chronic
Chronic only
____ Other
Use of terms such as suspected, likely, concern for, or probable (associated with a specific diagnosis that is being evaluated, monitored, or treated as if it exists) are acceptable and can be coded in the inpatient setting, when documented at the
time of discharge.
Thank you,
Shawna Peter RN, BSN
CDI Specialist
tiger text
Please use your independent medical judgment in providing your response.
--- NOTE | 2025-10-18 16:01 | PN.CDI ---
CDI
- -
CDI:
Physician Documentation Request
Admit Date: 10/16/25 03:24
Dear Doctor Niraj,
10/18 progress note includes a diagnosis of 'Sacral wound'
Nursing assessment states 'Present on admission Sacrum. Stage 2 pressure injury'
Physician documentation of the type and location of wounds is required for compliant documentation. Based on the above clinical findings and your assessment, please provide the following in your progress note:
Type (etiology) of ulcer/wound:
- Traumatic wound
- Pressure (decubitus) ulcer
- Other
Use of terms such as suspected, likely, concern for, or probable (associated with a specific diagnosis that is being evaluated, monitored, or treated as if it exists) are acceptable and can be coded in the inpatient setting, when documented at the
time of discharge.
Thank you,
Shawna Peter RN, BSN
CDI Specialist
tiger text
Please use your independent medical judgment in providing your response.
*Source: National Pressure Ulcer Advisory Panel (NPUAP)
[2025-10-18] MEDS: NOVOLOG FLEXPEN-LOW RESISTANCE 3 UNITS SC (17:30)
[2025-10-18 17:47] LABS: Glucose - Point of Care 265 mg/dl (70-99)
[2025-10-18 21:28] LABS: Glucose - Point of Care 144 mg/dl (70-99)
[2025-10-19] VITALS (7 sets, daily range): BP systolic 103–124; BP diastolic 62–75
[2025-10-19] MEDS: MORPHINE SULFATE 2 MG IV ×4 (00:22→11:06)
[2025-10-19] MEDS: VENTOLIN NEBULES 2.5 MG INH (01:36)
--- NOTE | 2025-10-19 01:50 | PTCARENOTE ---
Assumed care of pt from dayshift RN. Pt aaox3 and [place]. Pt frustrated at times. NSR on the tele monitor. Pt's SpO2 dropped to 84% on 12L whle asleep. Currently, SpO2 96% on 15L MFNC. Pt refused hygiene care despite RN education. male PW in place
draining flaco urine. Pt resting in bed with call rose in reach and bed alarm on.
[2025-10-19] MEDS: PULMICORT 0.5 MG INH (07:08)
[2025-10-19] MEDS: DUONEB 3 ML INH ×2 (07:08→11:00)
[2025-10-19] MEDS: CARDIZEM CD 120 MG PO (07:41)
[2025-10-19] MEDS: FLOMAX 0.4 MG PO (07:42)
[2025-10-19] MEDS: DELTASONE 10 MG PO (07:42)
[2025-10-19 07:46] LABS: Glucose - Point of Care 116 mg/dl (70-99)
[2025-10-19] MEDS: NOVOLOG FLEXPEN-LOW RESISTANCE SC ×2 (07:48→12:57)
--- NOTE | 2025-10-19 08:00 | PTCARENOTE ---
report received from previous RN at changes of shift. pt resting in bed. AAOx3- forgetful at times. pt to be transitioned to hospice today. pt refusing hygiene. SR on telemetry heart rate 90-100s. pulses palpable. pt on 10 L midflow nasal cannula,
sat 96%. lung sounds coarse, rhonchi throughout. incontinent of urine- purewick in place. pt updated on plan of care. see worklist for full nursing assessment and interventions.
--- NOTE | 2025-10-19 08:12 | W.PN.HOSP.TC ---
Today's Communication/Plan
-
Discharge to inpatient hospice
Assessment / Plan
Assessment / Plan
Physical Exam
Gen-not in acute distress
HEENT-NC, AT, anicteric, clear oral mm
Neck-supple
CV-reg, no M, +S1/S2
Lungs-decreased breath sounds, mild end expiratory wheezes bilaterally
Abd-soft, NT, ND
Ext-no edema
Musculoskeletal-no cyanosis, clubbing
Skin-warm and dry
Neuro-grossly non-focal
Psych-calm, cooperative
Assessment/Plan
Dysphagia -suspect has been present off-and-on for at least a month. He was complaining about this in late August during his hospitalization then. In late August 2025 he was evaluated by speech therapy, recommendation for regular diet and thin
liquids. Noted to have mild dysphagia.
Denies history of EGD or workup for dysphagia.
Speech therapy evaluated patient and recommended minced and moist diet, thin liquids. Patient will now be on hospice and can have regular diet, which he stated is what he wants.
States he has lost weight but unable to quantitate.
GI consult noted, awaiting barium esophagram. Remains at higher risk for pulmonary complications with EGD given underlying severe COPD.
Severe COPD without exacerbation -mild wheezing on exam. Steroid and oxygen dependent. Uses 2 L of oxygen at home continuously. Continue oxygen supplementation.
Continue inhalers, steroids.
Acute on Chronic hypoxic respiratory failure -due to advanced severe COPD, oxygen dependent at home.
Admission 1 view chest x-ray showed left midlung field mild opacification. Clinically I doubt he has pneumonia. No fevers here. No signs or symptoms of sepsis. Mild leukocytosis improving without antibiotics. His cough has not changed. Oxygen
requirements have not changed. Observe off antibiotics.
Troponin elevation -troponin trending down. Denies chest pain. Doubt ACS. Suspect acute nonischemic myocardial injury.
Hyponatremia
Chronic heart failure preserved EF -stable. Does not look volume overloaded. Weight is stable compared to previous hospitalization. However, BNP 15,700.
Last echocardiogram 12/25/2024, LVEF 65 to 70%, normal regional wall motion, low normal right ventricular systolic function. Estimated PA pressure 20 to 25 mmHg.
Essential hypertension -relative hypotension noted. Monitor closely.
Paroxysmal atrial fibrillation -not on chronic anticoagulation due to frailty, falls.
Hyperlipidemia -atorvastatin.
DM 2 with peripheral neuropathy -was on Januvia prior to admission. Continue low resistance NovoLog sliding scale.
Glucose 158 this morning.
Last hemoglobin A1c 7.3% August 2025.
Nephrolithiasis
Right renal mass
Sacral wound
Cognitive impairment
History of prostate cancer
Sacrum Stage 2 pressure injury
DNR
PT/OT
Patient and his son have agreed for patient to be hospice. Discharge to inpatient hospice.
Anticipated Discharge: Today
Subjective/Interval History
-
Date of Service: October 19, 2025
Patient was seen and examined. He reported doing okay, and denied any new symptoms or complaints.
Objective Data
-
Vital Signs:
Vital Signs
Temp Pulse Resp BP Pulse Ox
97.9 F 90 16 118/67 98
10/19/25 07:43 10/19/25 07:41 10/19/25 07:11 10/19/25 07:41 10/19/25 07:12
I&O
10/18/25 10/19/25 10/20/25
06:59 06:59 06:59
Intake Total 720 / 720
Output Total 300 / 300 650 / 650
Balance 420 / 420 -650 / -650
[2025-10-19] MEDS: DESENEX/MITRAZOL/ZEASORB TOPICAL (11:01)
--- NOTE | 2025-10-19 11:21 | HOSPNOTE ---
Spoke with patient and son and they are both in agreement with hospice. Admissions was called and hospice chart will be started. Attending and CM aware of plan.
--- NOTE | 2025-10-19 12:06 | CM ---
PLAN: Son signed consents this morning so [facility].
[2025-10-19 12:11] LABS: Glucose - Point of Care 213 mg/dl (70-99)
--- NOTE | 2025-10-19 12:37 | W.DCSUMMARY ---
Discharge Summary
Discharge Data
Date of Admission: 10/16/25
Date of Discharge: 10/19/25
Total time spent discharging patient (in min): 45
-
Pending Results: No
Hospital Course
84 year-old male with known past medical history of COPD on chronic 2 L O2 via nasal cannula, chronic HFpEF, paroxysmal A-fib not on any anticoagulation, type 2 diabetes, history of chronic urinary retention, hyperlipidemia, prostate cancer s/p
radiation, sacral pressure injury stage I, GERD and history of shingles, presented with difficulty swallowing. Patient was made N.P.O. and speech was consulted. Patient was placed on a proton pump inhibitor type of medication. Gastroenterology was
consulted. During the hospitalization, patient became more hypoxic and unable to oxygenate adequately, his oxygen was increased to 15 L with pulse oximetry readings in the 85% to 88% range. Patient stated that 'he is ready to .' Patient also
stated that he did not want any more heroic treatments, and that he is 84 years old and is tired of fighting. Hospitalist discussed hospice philosophy including plans for comfort measures, it would mean that he will no longer be hospitalized in the
future, goal would be for patient to pass away peacefully and comfortably. Patient and his son both agreed for patient to go into hospice.
Discharge Plan
-
Patient Disposition: Hospice - Inpatient
Discharge Diagnosis/Procedures: Acute on chronic hypoxic respiratory failure
COPD
Hyponatremia
History of septic shock
Dysphagia
Type 2 diabetes mellitus
Hyperlipidemia
Hypertension
HFpEF
GERD
Right lower pole renal mass
History of prostate cancer
Sacral wounds
Falls
Paroxysmal atrial fibrillation
History of Pseudomonas UTI
Nephrolithiasis
Cognitive Impairment
Condition: Serious
Diet: As tolerated
Referrals:
NONE,* [Family Provider, Internal Medicine]
Prescriptions:
Discontinued
diltiazem HCl 120 MG capsule,extended release 24hr
120 mg PO DAILY Qty: 30 0RF
albuterol sulfate 2.5 mg /3 mL (0.083 %) Solution For Nebulization
2.5 mg INHALATION R Q6HPRN PRN (Reason: wheezing)
budesonide 0.5 mg/2 mL Suspension For Nebulization
0.5 mg INHALATION R BID
tamsulosin 0.4 MG capsule
0.4 mg PO BID
omeprazole 20 MG capsule,delayed release(DR/EC)
20 mg PO DAILYPRN PRN (Reason: Gastrointestinal Issue)
Saline Nasal 0.65 % Aerosol,Chamberlain
1 spray intranasal QIDPRN PRN (Reason: dry nares) Qty: 44 0RF
acetaminophen [Tylenol] 325 mg Tablet
650 mg PO Q6HPRN PRN (Reason: mild pain )
aspirin 81 mg tablet,chewable
81 mg PO DAILY
ipratropium-albuterol 0.5 mg-3 mg(2.5 mg base)/3 mL Solution For Nebulization
3 ml inhalation R Q4HPRN PRN (Reason: SOB/wheezing) Qty: 180 2RF
gabapentin 300 mg Capsule
300 mg PO TIDPRN PRN (Reason: nerve pain)
Januvia 100 mg Tablet
100 mg PO DAILY
Visbiome 112.5 billion cell Capsule
1 cap PO DAILY
magnesium oxide 400 mg magnesium capsule
400 mg PO DAILY
prednisone 10 mg Tablet
10 mg PO DIRECTED Qty: 0 0RF
Rx Instructions:
30mg daily for 2 more days then 20mg daily for 3 days then 10mg daily for 3 days
hydrocortisone acetate 25 mg suppository
25 mg TN HS Qty: 0 0RF
magnesium hydroxide [Milk of Magnesia] 400 mg/5 mL Suspension
15 ml PO DAILY PRN (Reason: if no BM x3 days)
bisacodyl [Dulcolax (bisacodyl)] 10 mg Suppository
10 mg TN DAILY PRN (Reason: if MOM is ineffective)
Fleet Enema 19-7 gram/118 mL Enema
118 ml TN ONCE
Patient Comments:
if dulcolax ineffective
atorvastatin 40 MG tablet
40 mg PO HS
Discharge Orders:
Discharge Patient (As Directed); Ordered 10/19/25
Ordered By: Justice Healy
Discharge Date and Time
Print Language: PERSIAN
== END 2025-10-19 13:12 | disposition hospice, inpatient (51) | DRG 189 ==
LOC: IMU 03:24
PROVIDERS: Nurse Practitioner Family; ADMITTING PHYSICIAN Hospitalist; ATTENDING PHYSICIAN Hospitalist; CONSULT PHYSICIAN Internal Medicine Gastroenterology; EMERGENCY PHYSICIAN Emergency Medicine
PROC: 5A09357 Assistance with Respiratory Ventilation, Less than 24 Consecutive Hours, Continuous Positive Airway Pressure (ICD-10-PCS; 2025-10-16)
DX: J96.21 Acute and chronic respiratory failure with hypoxia (principal); I50.32 Chronic diastolic (congestive) heart failure; I5A Non-ischemic myocardial injury (non-traumatic); E87.1 Hypo-osmolality and hyponatremia; R13.10 Dysphagia, unspecified; J96.22 Acute and chronic respiratory failure with hypercapnia; I45.10 Unspecified right bundle-branch block; E78.00 Pure hypercholesterolemia, unspecified; I11.0 Hypertensive heart disease with heart failure; Z51.5 Encounter for palliative care; F17.200 Nicotine dependence, unspecified, uncomplicated; N28.89 Other specified disorders of kidney and ureter; J44.9 Chronic obstructive pulmonary disease, unspecified; I48.0 Paroxysmal atrial fibrillation; I95.9 Hypotension, unspecified; K21.9 Gastro-esophageal reflux disease without esophagitis; R41.89 Other symptoms and signs involving cognitive functions and awareness; L89.152 Pressure ulcer of sacral region, stage 2; E11.42 Type 2 diabetes mellitus with diabetic polyneuropathy; Z66 Do not resuscitate; Z60.2 Problems related to living alone; Z99.81 Dependence on supplemental oxygen; Z86.16 Personal history of COVID-19; Z87.01 Personal history of pneumonia (recurrent); Z90.49 Acquired absence of other specified parts of digestive tract; Z79.899 Other long term (current) drug therapy; Z79.82 Long term (current) use of aspirin; Z79.51 Long term (current) use of inhaled steroids; Z85.46 Personal history of malignant neoplasm of prostate; Z79.84 Long term (current) use of oral hypoglycemic drugs; Z87.440 Personal history of urinary (tract) infections; Z92.3 Personal history of irradiation; Z87.442 Personal history of urinary calculi
CPT/HCPCS: 71045; 80048; 80053; 80061; 82962; 83605; 83880; 84443; 84484; 85025; 85027; 87040; 92610; 93005; 94640; 94660; 94760; 96374; 96375; 99285; 99406